=== PATIENT | male | born 1960 | race Hispanic/Latino ===

== ENCOUNTER 2016-08-09 20:41 | Inpatient (IN) | payer BC ==
[2016-08-09 20:42] VITALS: BMI 26.6
--- NOTE | 2016-08-09 21:09 | ED PDOC ---
Arrival/HPI - General Time Seen by Provider: 08/09/16 20:57 Historian: Patient - History of Present Illness Narrative History of Present Illness (Text): 08/09/16 21:04 Anuel Whitt is a 56 year old male, whose past medical history includes CAD with 5 stents, hypertension, hyperlipidemia, gastric ulcer, and alcohol abuse, who presents to the Emergency department complaining of abdominal pain. Patient states over the past 2 months he has been experiencing LLQ pain with associated weight loss and diarrhea. Patient reports bloody diarrhea over the past 2 days. Patient also reports he was diaphoretic with left leg cramping earlier today. Patient states he was seen at [facility] for similar complaints. Patient denies any chest pain, shortness of breath, nausea, vomiting, urinary symptoms, back pain, neck pain, headache, dizziness, or any other complaints. Symptom Onset: Gradual Symptom Course: Unchanged Activities at Onset: Rest, Light Context: Home Past Medical History - Provider Review Nursing Documentation Reviewed: Yes - Infectious Disease Hx of Infectious Diseases: None - Tetanus Immunization Tetanus Immunization: Up to Date - Cardiac Hx Cardiac Disorders: Yes Hx ND: Yes - Pulmonary Hx Respiratory Disorders: No Hx Tuberculosis: No - Neurological Hx Neurological Disorder: No Hx Paralysis: No - HEENT Hx HEENT Disorder: No - Renal Hx Renal Disorder: No - Endocrine/Metabolic Hx Endocrine Disorders: No - Hematological/Oncological Hx Blood Disorders: No Hx Blood Transfusions: No Hx Blood Transfusion Reaction: No - Integumentary Hx Dermatological Disorder: No - Musculoskeletal/Rheumatological Hx Musculoskeletal Disorders: No - Gastrointestinal Hx Gastrointestinal Disorders: No - Genitourinary/Gynecological Hx Genitourinary Disorders: No - Psychiatric Hx Psychophysiologic Disorder: Yes Hx Substance Use: No - Past Surgical History Past Surgical History: No Previous - Surgical History Hx Cardiac Catheterization: Yes (x 4 stents) Hx Coronary Stent: Yes (x 5) - Anesthesia Hx Anesthesia Reactions: No Hx Malignant Hyperthermia: No - Suicidal Assessment Feels Threatened In Home Enviroment: No Family/Social History - Physician Review Nursing Documentation Reviewed: Yes Family/Social History: No Known Family HX Smoking Status: Heavy Smoker > 10 Cigarettes Daily Hx Alcohol Use: Yes ( 10 to 12 BEERS DAILY) Hx Substance Use: No Hx Substance Use Treatment: No Allergies/Home Meds Allergies/Adverse Reactions: Allergies No Known Allergies Allergy (Verified 03/08/16 11:12) Home Medications: Home Meds Medication Instructions Recorded Confirmed Aspirin [Ecotrin] 81 mg PO DAILY 04/01/15 08/09/16 Atorvastatin [Lipitor] 40 mg PO DAILY 04/01/15 08/09/16 Clopidogrel [Plavix] 75 mg PO QAM 04/01/15 08/09/16 ALPRAZolam [Xanax] 0.5 mg PO PRN PRN 09/18/15 08/09/16 Review of Systems - Physician Review All systems were reviewed & negative as marked: Yes - Review of Systems Constitutional: Weight Change (+weight loss). absent: Fevers Eyes: Normal ENT: Normal Respiratory: Normal. absent: SOB, Cough Cardiovascular: Normal Gastrointestinal: Abdominal Pain, Diarrhea Genitourinary Male: Normal. absent: Dysuria, Frequency, Hematuria, Urinary Output Changes Musculoskeletal: Other (+left leg cramping). absent: Back Pain, Neck Pain Skin: Normal. absent: Rash Neurological: Normal. absent: Headache, Dizziness Endocrine: Diaphoresis Hemo/Lymphatic: Normal Psychiatric: Normal Physical Exam Vital Signs Reviewed: Yes Vital Signs Temp Pulse Resp BP Pulse Ox 08/09/16 21:32 98 F 89 18 155/86 H 97 Temperature: Afebrile Blood Pressure: Normal Pulse: Regular Respiratory Rate: Normal Appearance: Positive for: Well-Appearing, Non-Toxic, Comfortable Pain Distress: None Mental Status: Positive for: Alert and Oriented X 3 - Systems Exam Head: Present: Atraumatic, Normocephalic Pupils: Present: PERRL Extroacular Muscles: Present: EOMI Conjunctiva: Present: Normal Mouth: Present: Moist Mucous Membranes Neck: Present: Normal Range of Motion Respiratory/Chest: Present: Clear to Auscultation, Good Air Exchange. No: Respiratory Distress, Accessory Muscle Use Cardiovascular: Present: Regular Rate and Rhythm, Normal S1, S2. No: Murmurs Abdomen: Present: Tenderness (LLQ tenderness), Normal Bowel Sounds. No: Distention, Peritoneal Signs Back: Present: Normal Inspection Upper Extremity: Present: Normal Inspection. No: Cyanosis, Edema Lower Extremity: Present: Normal Inspection. No: Edema Neurological: Present: GCS=15, CN II-XII Intact, Speech Normal Skin: Present: Warm, Dry, Normal Color. No: Rashes Psychiatric: Present: Alert, Oriented x 3, Normal Insight, Normal Concentration Medical Decision Making ED Course and Treatment: 08/09/16 21:04 Impression: 56 year old male complaining of LLQ pain, diarrhea, and left leg tremors. Differential Diagnosis include but are not limited to: diverticular disease vs. GI bleed vs. colitis vs. gastroenteritis vs. abdominal pain Plan: -- CT Abdomen and Pelvis with IV contrast -- EKG -- Chest X-ray -- Labs, lipase -- Urinalysis -- IV fluids -- Protonix -- Xanax -- Reassess and disposition Progress Notes: 08/09/16 21:37 Reviewed EKG, NSR at 71 bpm. Septal infarct. Non-specific ST/T wave changes. 08/09/16 22:26 Reviewed Chest X-ray, shows no active disease. 08/09/16 23:[address] Abdomen and Pelvis, shows: 1. Fatty infiltration of the liver. 2. There are a few colonic diverticula with no diverticulitis. 3. Otherwise negative CT abdomen/pelvis. 08/10/16 00:[address] Mccall, who requests pt go to the hospitalist service. residential support specialist paged. 08/10/16 00:26 Case discussed with medical writer front loader residential driver, who is aware and agrees with plan. House physician paged. 08/10/16 00:[address] Rebolledo, who is aware and agrees with plan. Accepts pt in to hospitalist service. Pt will go to [facility] observation for intractable pain and lower GI bleed. - Lab Interpretations Lab Results: 08/09/16 21:25 08/09/16 21:25 Lab Results 08/09/16 21:25: WBC 7.4, RBC 4.29, Hgb 14.7, Hct 41.4 L, MCV 96.5, MCH 34.3, MCHC 35.5, RDW 12.3, Plt Count 263, MPV 9.8 08/09/16 21:25: Sodium 137, Potassium 3.8, Chloride 105, Carbon Dioxide 22, Anion Gap 14, BUN 9, Creatinine 0.7, Est GFR ( Amer) > 60, Est GFR (Non- Af Amer) > 60, Random Glucose 82, Calcium 9.3, Total Bilirubin 0.8, AST 56, ALT 49, Alkaline Phosphatase 56, Total Protein 7.6, Albumin 4.3, Globulin 3.3, Albumin/Globulin Ratio 1.3, Lipase 80 08/09/16 21:25: Urine Color yellow, Urine Appearance Clear, Urine pH 6.0, Ur Specific [place] <= 1.005, Urine Protein Negative, Urine Glucose (UA) Negative, Urine Ketones Negative, Urine Blood Negative, Urine Nitrate Negative, Urine Bilirubin Negative, Urine Urobilinogen 0.2, Ur Leukocyte Esterase Negative I have reviewed the lab results: Yes - RAD Interpretation Narrative RAD Interpretations (Text): Chest X-ray shows no active disease. CT Abdomen and Pelvis shows: Lower thorax: No acute findings. ABDOMEN: Liver: There is fatty infiltration of the liver. Gallbladder and bile ducts: Unremarkable. No calcified stones. No ductal dilation. Pancreas: Unremarkable. No mass. No ductal dilation. Spleen: Unremarkable. No splenomegaly. Adrenals: Unremarkable. No mass. Kidneys and ureters: There is a left renal cyst measuring up to 3.1 cm. Incidental note of an accessory retroaortic left renal vein. No hydronephrosis. Stomach and bowel: There are few colonic diverticula with no diverticulitis. No obstruction. Appendix: A normal appendix is seen. PELVIS: Bladder: Unremarkable. No mass. Reproductive: Unremarkable as visualized. ABDOMEN and PELVIS: Intraperitoneal space: Unremarkable. No free air. No significant fluid collection. Bones/joints: No acute fracture. No dislocation. Soft tissues: Minimal fat filled umbilical hernia. Vasculature: See above. Lymph nodes: Unremarkable. No enlarged lymph nodes. IMPRESSION: 1. Fatty infiltration of the liver. 2. There are a few colonic diverticula with no diverticulitis. 3. Otherwise negative CT abdomen/pelvis. Radiology Orders: 08/09/16 21:12 CHEST PORTABLE [RAD] Stat 08/09/16 21:13 ABD & PELVIS IV CONTRAST ONLY [CT] Stat Vehicle Dismantler: ED Physician, Radiologist - EKG Interpretation Interpreted by ED Physician: Yes Type: 12 lead EKG - Medication Orders Current Medication Orders: Alprazolam (Xanax) 0.5 mg PO PRN PRN; Protocol PRN Reason: Anxiety Stop: 08/17/16 00:30 Aspirin (Ecotrin) 81 mg PO DAILY LONA Atorvastatin Calcium (Lipitor) 40 mg PO DAILY LONA Clopidogrel Bisulfate (Plavix) 75 mg PO QAM LONA Famotidine (Pepcid) 40 mg PO HS LONA Pantoprazole Sodium (Protonix Ec Tab) 40 mg PO 0600,1600 LONA Discontinued Medications Al Hydrox/Mg Hydrox/Simethicone (Maalox Plus 30 Ml) 30 ml PO STAT STA Stop: 08/10/16 00:31 Alprazolam (Xanax) 0.25 mg PO ONCE ONE Stop: 08/09/16 21:31 Last Admin: 08/09/16 21:52 Dose: 0.25 mg Sodium Chloride (Sodium Chloride 0.9%) 1,000 mls @ 999 mls/hr IV .Q1H1M STA Stop: 08/09/16 22:14 Last Admin: 08/09/16 21:53 Dose: 999 mls/hr Iohexol (Omnipaque 350 100 Ml) Confirm Administered Dose 350 mg .ROUTE .STK-MED ONE Stop: 08/09/16 22:39 Morphine Sulfate (Morphine) 4 mg IVP STAT STA Stop: 08/10/16 00:31 Pantoprazole Sodium (Protonix Inj) 40 mg IVP ONCE STA Stop: 08/09/16 21:15 Last Admin: 08/09/16 21:52 Dose: 40 mg - Scribe Statement The provider has reviewed the documentation as recorded by the Devyn Stone All medical record entries made by the Devyn were at my direction and personally dictated by me. I have reviewed the chart and agree that the record accurately reflects my personal performance of the history, physical exam, medical decision making, and the department course for this patient. I have also personally directed, reviewed, and agree with the discharge instructions and disposition. Disposition/Present on Arrival - Present on Arrival Any Indicators Present on Arrival: No History of DVT/PE: No History of Uncontrolled Diabetes: No Urinary Catheter: No History Surgical Site Infection Following: None - Disposition Have Diagnosis and Disposition been Completed?: Yes Diagnosis: Intractable abdominal pain, Lower GI bleed Disposition: HOSPITALIZED Disposition Time: 00:34 Patient Plan: Observation Condition: STABLE Referrals: Harrison Mccall MD [Primary Care Provider] - Follow up with primary
[2016-08-09] MEDS ORDERED: Sodium Chloride 0.9% 1,000 ML IV STA (21:14)
[2016-08-09 21:57] LABS: HEMATOCRIT 41.4 % (42.0-52.0); MEAN CELL VOLUME 96.5 fL (80.0-105.0); MEAN CORPUSCULAR HEMOGLOBIN 34.3 pg (25.0-35.0); MEAN CORPUSCULAR HGB CONC 35.5 g/dl (31.0-37.0); MEAN PLATELET VOLUME 9.8 fl (7.0-11.0); RED CELL DISTRIBUTION WIDTH 12.3 % (11.5-14.5); URINE BILIRUBIN NEGATIVE (NEGATIVE); URINE GLUCOSE (UA) NEGATIVE (NEGATIVE); URINE KETONE NEGATIVE (NEGATIVE); URINE LEUKOCYTE ESTERASE NEGATIVE Leu/uL (NEGATIVE); URINE PROTEIN NEGATIVE mg/dL (<30 mg/dL); URINE UROBILINOGEN 0.2 E.U./dL (<1 E.U./dL); WHITE BLOOD COUNT 7.4 10^3/ul (4.5-11.0)
[2016-08-09 22:04] LABS: URINE APPEARANCE CLEAR (CLEAR)
[2016-08-09 22:05] LABS: URINE BLOOD NEGATIVE (NEGATIVE)
[2016-08-09 22:18] LABS: ALB/GLOB RATIO 1.3 (1.1-1.8); ALKALINE PHOSPHATASE 56 U/L (38-133); ALT/SGPT 49 U/L (7-56); AST/SGOT 56 U/L (15-59); BILIRUBIN,TOTAL 0.8 mg/dL (0.2-1.3); BLOOD UREA NITROGEN 9 mg/dL (7-21); CALCIUM 9.3 mg/dL (8.4-10.5); CARBON DIOXIDE 22 mmol/L (21-33); CHLORIDE 105 mmol/L (98-107); GFR AFRICAN-AMERICAN > 60; GLUCOSE,RANDOM 82 mg/dL (70-110); LIPASE 80 U/L (23-300); POTASSIUM 3.8 mmol/L (3.6-5.0); SODIUM 137 mmol/L (132-148); TOTAL PROTEIN 7.6 g/dL (5.8-8.3)
[2016-08-09] MEDS ORDERED: Iohexol 350 MG/100 ML VIAL ONE (22:38)
--- NOTE | 2016-08-10 00:27 | CP.PCM.HP ---
<Roel Gilbert - Last Filed: 08/10/16 00:53> History of Present Illness - History of Present Illness History of Present Illness: CC: LLQ Pain Mr. Whitt is a 56yo M w/ a PMhx of CAD with 5 stents, hypertension, hyperlipidemia, gastric ulcer, and alcohol abuse who is presenting to the hospital for a 4d history of LLQ pain that is not associated with any other symptoms. He cannot qualify the pain and simply says it hurts and the only thing that helps the pain is oxycodone. He also says that during our interview he started to have chest pain and a stat troponin was ordered as well as repeats. His abdominal pain is not associated with fevers/chills, CABRERA, CP, SOB, N /V/D, dysuria/freq/urg, or lower extremity pain or swelling. He states that his legs have been feeling kind of crampy recently and that he has been urinating a lot more than usual. He does not complain of any polyphagia. Pmhx: CAD with 5 stents, hypertension, hyperlipidemia, gastric ulcer, and alcohol abuse Social: lives at home, does not work, denies daily EtOH, current smoker 1ppd for 35 years, denies other drugs Allergies: None Surgeries: Denies Famhx: Sister with thyroid cancer Meds: please refer to MAR Present on Admission - Present on Admission Any Indicators Present on Admission: No History of DVT/PE: No History of Uncontrolled Diabetes: No Urinary Catheter: No Decubitus Ulcer Present: No Past Patient History - Infectious Disease Hx of Infectious Diseases: None - Tetanus Immunizations Tetanus Immunization: Up to Date - Past Medical History & Family History Past Medical History?: Yes - Past Social History Smoking Status: Heavy Smoker > 10 Cigarettes Daily - CARDIAC Hx Cardiac Disorders: Yes Hx Heart Attack: Yes - PULMONARY Hx Respiratory Disorders: No Hx Tuberculosis: No - NEUROLOGICAL Hx Neurological Disorder: No Hx Paralysis: No - HEENT Hx HEENT Problems: No - RENAL Hx Chronic Kidney Disease: No - ENDOCRINE/METABOLIC Hx Endocrine Disorders: No - HEMATOLOGICAL/ONCOLOGICAL Hx Blood Disorders: No Hx Blood Transfusions: No Hx Blood Transfusion Reaction: No - INTEGUMENTARY Hx Dermatological Problems: No - MUSCULOSKELETAL/RHEUMATOLOGICAL Hx Musculoskeletal Disorders: No - GASTROINTESTINAL Hx Gastrointestinal Disorders: No - GENITOURINARY/GYNECOLOGICAL Hx Genitourinary Disorders: No - PSYCHIATRIC Hx Psychophysiologic Disorder: Yes Hx Substance Use: No - SURGICAL HISTORY Hx Cardiac Catheterization: Yes (x 4 stents) Hx Coronary Stent: Yes (x 5) - ANESTHESIA Hx Anesthesia Reactions: No Hx Malignant Hyperthermia: No Meds Allergies/Adverse Reactions: Allergies Allergy/AdvReac Type Severity Reaction Status Date / Time No Known Allergies Allergy Verified 03/08/16 11:12 Physical Exam - Constitutional Appears: Well, Non-toxic - Head Exam Head Exam: ATRAUMATIC, NORMAL INSPECTION - Eye Exam Eye Exam: EOMI, Normal appearance - ENT Exam ENT Exam: Mucous Membranes Moist - Neck Exam Neck exam: Positive for: Full Rom. Negative for: Lymphadenopathy - Respiratory Exam Respiratory Exam: Clear to Auscultation Bilateral, NORMAL BREATHING PATTERN. absent: Rales, Rhonchi, Wheezes - Cardiovascular Exam Cardiovascular Exam: REGULAR RHYTHM, +S1, +S2 - GI/Abdominal Exam GI & Abdominal Exam: Normal Bowel Sounds, Soft. absent: Tenderness - Rectal Exam Rectal Exam: Deferred - Extremities Exam Extremities exam: Positive for: full ROM, normal capillary refill, normal inspection, pedal pulses present. Negative for: calf tenderness, joint swelling , pedal edema, tenderness - Back Exam Back exam: NORMAL INSPECTION. absent: CVA tenderness (L), CVA tenderness (R) - Neurological Exam Neurological exam: Alert, CN II-XII Intact, Normal Gait, Oriented x3, Reflexes Normal - Psychiatric Exam Psychiatric exam: Normal Affect - Skin Skin Exam: Warm Results - Vital Signs Recent Vital Signs: Last Vital Signs Temp 98 F 08/09/16 21:32 Pulse 89 08/09/16 21:32 Resp 18 08/09/16 21:32 BP 155/86 H 08/09/16 21:32 Pulse Ox 97 08/09/16 21:32 - Labs Result Diagrams: 08/09/16 21:25 08/09/16 21:25 Labs: Laboratory Results - last 24 hr 08/09/16 08/09/16 08/09/16 21:25 21:25 21:25 WBC 7.4 RBC 4.29 Hgb 14.7 Hct 41.4 L MCV 96.5 MCH 34.3 MCHC 35.5 RDW 12.3 Plt Count 263 MPV 9.8 Sodium 137 Potassium 3.8 Chloride 105 Carbon Dioxide 22 Anion Gap 14 BUN 9 Creatinine 0.7 Est GFR ( Amer) > 60 Est GFR (Non-Af Amer) > 60 Random Glucose 82 Calcium 9.3 Total Bilirubin 0.8 AST 56 ALT 49 Alkaline Phosphatase 56 Total Protein 7.6 Albumin 4.3 Globulin 3.3 Albumin/Globulin Ratio 1.3 Lipase 80 Urine Color yellow Urine Appearance Clear Urine pH 6.0 Ur Specific [place] <= 1.005 Urine Protein Negative Urine Glucose (UA) Negative Urine Ketones Negative Urine Blood Negative Urine Nitrate Negative Urine Bilirubin Negative Urine Urobilinogen 0.2 Ur Leukocyte Esterase Negative Assessment & Plan - Assessment and Plan (Free Text) Assessment: This is a 56yo M admitted for abdominal pain that is not intractable Abdominal pain CT Scan showed: 1. Fatty infiltration of the liver. 2. There are a few colonic diverticula with no diverticulitis. 3. Otherwise negative CT abdomen/pelvis -patient has no WBC, no tachycardia, no elevated RR, and is comfortably walking around the ER -Protonix and Pepcid Ordered with maalox -lactobacillus ordered -if patient has any diarrhea, please send C.Diff and stool for ova/parasites -f/u with troponins; zinc plater; EKG is unchanged from previous CAD -c/w home meds hypertension, -c/w home meds Hyperlipidemia -c/w home meds Hx of Alcohol Abuse -c/w thiamine and folate daily Proph -Protonix/Pepcid -Heparin Q8H -heart Healthy diet -f/u HbA1C; patient states he has been urinating more than usual Case Discussed with Dr. Kesha Gilbert PGY1 Night Float Decision To Admit - Pt Status Changed To: Hospital Disposition Of: Observation - . Bed Request Type: Med/Surg Admitting Physician: Clement Rebolledo <Clement Rebolledo - Last Filed: 08/14/16 22:51> Results - Vital Signs Recent Vital Signs: Last Vital Signs Temp 98.2 F 08/13/16 12:10 Pulse 64 08/13/16 12:10 Resp 17 08/13/16 12:10 BP 130/63 08/13/16 12:10 Pulse Ox 99 08/13/16 12:10 - Labs Result Diagrams: 08/13/16 05:35 08/13/16 05:35 Attending/Attestation - Attestation I have personally seen and examined this patient.: Yes I have fully participated in the care of the patient.: Yes I have reviewed all pertinent clinical information: Yes Notes (Text): 08/14/16 22:50 Patient was seen when she was in the ER . Agree with history, physical examination, assessment and plan.
[2016-08-10] MEDS ORDERED: Morphine 4 mg/ml ISec IVP STA (00:30)
[2016-08-10] MEDS ORDERED: Alum-Mag Hydrox-Simethicone Susp (30 mL) PO STA (00:30)
[2016-08-10] MEDS ORDERED: Albuterol 0.083% Inhal Sol (2.5 mg/3 mL) UD IH PRN (00:32)
[2016-08-10] MEDS ORDERED: oxyCODONE 5 mg Immediate Release Tab PO SCH (01:00)
[2016-08-10] MEDS: Lactobacillus Acidophilus 500 MU Cap PO SCH ×3 (04:13→17:54)
[2016-08-10] MEDS ORDERED: oxyCODONE 5 mg Immediate Release Tab PO PRN (04:23)
[2016-08-10] MEDS: Pantoprazole 40 mg EC Tab PO SCH ×2 (05:09→17:06)
[2016-08-10 07:29] LABS: ADD MANUAL DIFF? NO
[2016-08-10 07:33] LABS: BASO # 0.02 K/mm3 (0.0-2.0); BASO % 0.3 % (0.0-3.0); EOS # 0.2 (0.0-0.7); EOS % 3.1 % (1.5-5.0); GRAN # 4.62 (1.4-6.5); GRAN % 60.1 % (50.0-68.0); HEMATOCRIT 39.9 % (42.0-52.0); MEAN CELL VOLUME 97.3 fL (80.0-105.0); MEAN CORPUSCULAR HEMOGLOBIN 33.7 pg (25.0-35.0); MEAN CORPUSCULAR HGB CONC 34.6 g/dl (31.0-37.0); MEAN PLATELET VOLUME 9.7 fl (7.0-11.0); MONO # 0.8 (0.1-0.6); MONO % 10.5 % (1.0-6.0); PLATELET COUNT 230 10^3/uL (120.0-450.0); RED CELL DISTRIBUTION WIDTH 12.5 % (11.5-14.5); WHITE BLOOD COUNT 7.7 10^3/ul (4.5-11.0)
[2016-08-10] MEDS: Multivitamin Vitamin B Complex (Nephro-Vite) Tab PO SCH (08:25)
[2016-08-10 08:43] LABS: ALB/GLOB RATIO 1.3 (1.1-1.8); ALKALINE PHOSPHATASE 51 U/L (38-133); ALT/SGPT 51 U/L (7-56); AST/SGOT 42 U/L (15-59); BILIRUBIN,TOTAL 0.9 mg/dL (0.2-1.3); BLOOD UREA NITROGEN 9 mg/dL (7-21); CALCIUM 8.9 mg/dL (8.4-10.5); CARBON DIOXIDE 26 mmol/L (21-33); CHLORIDE 104 mmol/L (98-107); GFR AFRICAN-AMERICAN > 60; GLUCOSE,RANDOM 77 mg/dL (70-110); POTASSIUM 3.6 mmol/L (3.6-5.0); SODIUM 138 mmol/L (132-148); TOTAL PROTEIN 6.8 g/dL (5.8-8.3)
[2016-08-10 08:56] LABS: TROPONIN I < 0.01 ng/mL
--- NOTE | 2016-08-10 09:47 | RAD ---
HISTORY: abdominal pain COMPARISON: 10/24/2015 FINDINGS: LUNGS: The lungs are well inflated and clear. PLEURA: No significant pleural effusion identified, no pneumothorax apparent. CARDIOVASCULAR: Normal. OSSEOUS STRUCTURES: No significant abnormalities. VISUALIZED UPPER ABDOMEN: Normal. OTHER FINDINGS: None. IMPRESSION: No active pulmonary disease.
[2016-08-10] MEDS ORDERED: Thiamine 100 mg/ml Inj IV SCH (10:00)
[2016-08-10] MEDS ORDERED: Enoxaparin 40 mg Syringe SC SCH (10:00)
[2016-08-10] MEDS ORDERED: Iodixanol 320 MG/ML 100 ML BOTTLE IV ONE (11:49)
--- NOTE | 2016-08-10 12:23 | CT ---
PROCEDURE: CT Abdomen and Pelvis with contrast HISTORY: left lower abdominal pain COMPARISON: CT abdomen and pelvis with contrast performed 03/08/16 TECHNIQUE: Contrast dose: 100 mL Omnipaque 350 Radiation dose: Total exam DLP = 468.48 mGy-cm. This CT exam was performed using one or more of the following dose reduction techniques: Automated exposure control, adjustment of the mA and/or kV according to patient size, and/or use of iterative reconstruction technique. FINDINGS: LOWER THORAX: No visible consolidation, pleural effusion, or pneumothorax. LIVER: Hypoattenuation of the liver compatible with hepatic steatosis. More focal hypoattenuation and adjacent to the ligamentum teres, likely focal fatty infiltration. At least 2 too small to characterize (less than 3 mm) hepatic dome hypodense foci ; statistically likely cysts or hemangiomas. . GALLBLADDER AND BILE DUCTS: Unremarkable. PANCREAS: Unremarkable. SPLEEN: 7 mm probable splenule. Otherwise unremarkable. ADRENALS: Unremarkable. KIDNEYS AND URETERS: The kidneys enhance symmetrically. No hydronephrosis or obstructing calculus identified. 3.1 cm low-density lesion arising from the in left kidney appear cystic. VASCULATURE: Evidence of accessory retroaortic left renal vein. No aortic aneurysm. Atherosclerotic calcifications of the aorta and branches. BOWEL: Stomach is nondistended. Lack of oral contrast limits evaluation for bowel pathology. Bowel loops appear within normal limits of caliber without evidence of obstruction. Diverticulosis without CT evidence of acute diverticulitis. APPENDIX: The presumed appendix appears within normal limits of caliber. No secondary signs of acute appendicitis. PERITONEUM: No significant free fluid. No definite free air. LYMPH NODES: No bulky adenopathy. BLADDER: Unremarkable. REPRODUCTIVE: Measures approximately 3.4 x 4.4 cm and contains calcifications. BONES: Degenerative changes of the spine. Vacuum disc phenomenon at L5-S1. Anterior bridging osteophyte, left anterior sacroiliac joint. OTHER FINDINGS: Small fat containing umbilical hernia. IMPRESSION: Hypoattenuation of the liver compatible with hepatic steatosis. Suspect more focal fatty sparing adjacent the ligamentum teres. Scattered diverticulosis without CT evidence of acute diverticulitis. Additional findings as above. Preliminary impression was provided by virtual radiologic.
--- NOTE | 2016-08-10 12:41 | CT ---
PROCEDURE: CT HEAD WITHOUT CONTRAST. HISTORY: L sided symptoms COMPARISON: Noncontrast head CT performed 10/22/14 TECHNIQUE: Axial computed tomography images were obtained through the head/brain without intravenous contrast. Radiation dose: Total exam DLP = 734.80 mGy-cm. This CT exam was performed using one or more of the following dose reduction techniques: Automated exposure control, adjustment of the mA and/or kV according to patient size, and/or use of iterative reconstruction technique. FINDINGS: HEMORRHAGE: No intracranial hemorrhage. BRAIN: Diffuse atrophy with prominence of the ventricles and sulci noted. No mass effect or edema. Somewhat rounded and irregular hypodense regions are noted within the left cerebellum of unclear significance. Scattered periventricular and subcortical white matter hypodensities, which are nonspecific, but often seen with chronic microvascular ischemic disease. Please note that MRI with diffusion imaging is more sensitive in the detection of acute ischemic event. VENTRICLES: No hydrocephalus. CALVARIUM: Unremarkable. PARANASAL SINUSES: Mucosal thickening of the ethmoid air cells, bilateral maxillary sinuses, and bilateral sphenoid sinuses. Partially imaged left mucosal polyp/ cyst within the left maxillary sinus. MASTOID AIR CELLS: Unremarkable as visualized. No inflammatory changes. OTHER FINDINGS: Age indeterminate right nasal bone deformity. Correlate clinically. IMPRESSION: Generalized atrophy. Somewhat rounded and irregular hypodense regions are noted within the left cerebellum of unclear significance. Recommend MRI without and with IV contrast for further characterization. Nonspecific white matter changes as above. Please note that MRI with diffusion imaging is more sensitive in the detection of acute ischemic event. Mucosal thickening of the ethmoid air cells, bilateral maxillary sinuses, and bilateral sphenoid sinuses. Partially imaged left mucosal polyp/ cyst within the left maxillary sinus. Correlate clinically for sinusitis. Age indeterminate right nasal bone deformity. Correlate clinically. Findings related to the cerebellum and recommendations were discussed with ANNEMARIE Elder on 08/10/16 at 12:35 p.m..
[2016-08-10] MEDS ORDERED: Sodium Chloride 0.9% 1,000 ML IV STA (14:00)
[2016-08-10] MEDS: Thiamine 100 mg/ml Inj IM SCH (14:44)
[2016-08-10 17:50] LABS: FREE T4 0.83 ng/dL (0.78-2.19); T4 5.4 ug/dL (5.5-11.0)
[2016-08-10 18:03] LABS: THYROID STIMULATING HORMONE 2.11 mIU/mL (0.46-4.68)
--- NOTE | 2016-08-10 18:11 | CON ---
DATE: 08/10/2016 CHIEF COMPLAINT: Transient left-sided numbness. HISTORY OF PRESENT ILLNESS: A 56-year-old man with history of coronary artery disease status post 5 stents, on aspirin and Plavix; history of hypertension and hyperlipidemia; history of gastric ulcer; history of alcohol abuse, who had a 4-day history of left lower quadrant pain not associated with any symptoms and was on oxycodone for pain. He stated that his legs have been feeling kind of crampy. He mentions that he had some transient left side numbness and that his left leg gave out. CT head sh owed no acute intracranial abnormality, just generalized atrophy and irregular hypodensity noted in t he left cerebellum, likely more of atherosclerotic disease, it seems like. He had an MRI and MRA of the head in the past, in 2014, which showed no acute intracranial abnormalities. Currently, he is mo ving. His strength is 5/5 in both upper and lower extremities. His gait is normal. Romberg is negat matt. PAST MEDICAL HISTORY: Coronary artery disease status post 5 stents, hypertension, hyperlipidemia, ga stric ulcer, alcohol abuse. SOCIAL HISTORY: Lives at home, does not work and denies any daily ETOH abuse, is a current smoker of 1 pack per day for the past 35 years. Denies any other illicit drug use. ALLERGIES: No known drug allergies. FAMILY HISTORY: Noncontributory. CURRENT MEDICATIONS: Reviewed via nursing reconciliation sheet. REVIEW OF SYSTEMS: A 14-point review of systems is negative except in the HPI. PHYSICAL EXAMINATION: VITAL SIGNS: Temperature 98, pulse rate , blood pressure 148/81, respiratory rate of 95 . GENERAL: The patient is sitting up in bed in no acute distress. HEENT: Atraumatic, normocephalic. PERRLA. Extraocular muscles intact. NECK: Supple, no JVD, no adenopathy noted. LUNGS: Clear to auscultation. No adventitious sounds. HEART: S1, S2, normal rate and rhythm. No murmurs, rubs, or gallops. ABDOMEN: Soft, nontender, nondistended. Bowel sounds are present. EXTREMITIES: No clubbing, no cyanosis. Peripheral pulses 2+ felt bilaterally. NEUROLOGIC: The patient is alert. Oriented to person, place, month and year. Speech is fluent, wit hout any errors. Cranial nerves II-XII are intact. MOTOR: Strength is 5/5 in both upper and lower extremities. SENSORY: Light touch, pinprick, proprioception, vibration are intact. DTRs 2+ throughout. COORDINATION: [id number]-[id number] is intact. Gait normal. Romberg negative. LABORATORY DATA: Sodium is 138, potassium , chloride of 104, carbon dioxide of 26, BUN of 9, cr eatinine 0.8. Random glucose of 77. A1c is 5.3. TSH is 5.14. ASSESSMENT AND PLAN: This is a 56-year-old man with history of coronary artery disease status post 5 stents, hypertension, hyperlipidemia, gastric ulcer, history of alcohol abuse, history of anxiety an d depression in the past. He came in with left lower quadrant abdominal pain, which is being worked up, without any diarrhea or nausea. He had some transient, intermittent left-sided numbness and ting ling sensation rather than weakness. Sometimes, his left leg gives out. Neuro exam is nonfocal. CT head showed no acute intracranial abnormalities, some irregular hypodensity in the cerebellum, which seems more likely chronic ischemic changes. He had MRI of the brain and MRA of the head in 2014, [facility] showed no acute intracranial abnormalities. At this time, recommend: 1. B12 level and ceruloplasmin level. 2. Continue with aspirin 81 mg and Plavix 75 mg, Lipitor 40 mg for stroke prevention. 3. Alcohol content of 16. Therefore, counseled on alcohol cessation and is on Librium p.r.n. for al cohol withdrawal. 4. Get an MRI and MRA of the head and brain to assess for any acute changes from prior, and if negat matt, likely his overall symptoms could be most likely transient anxiety state. At this time, anthony carmona with current present medical management . Dorian Gee MD cc: [id number] TT: 08/10/2016 18:10:47 Confirmation # [id number] Dictation # [id number]
[2016-08-10] MEDS ORDERED: Gadodiamide 287 MG/ML VIAL (20ML) IV ONE (18:57)
--- NOTE | 2016-08-10 20:01 | US ---
HISTORY: Leg pain and swelling. Evaluate for DVT PHYSICIAN(S): Greg Mcgregor MD. TECHNIQUE: Duplex sonography and color-flow Doppler with graded compression were used to evaluate the deep venous systems of both lower extremities. FINDINGS: The visualized deep venous systems of both lower extremities are sonographically normal and compressible. Normal wave forms and augmentation are seen. There is no sonographic evidence for deep venous thrombosis in the visualized segments of both lower extremities. IMPRESSION: No sonographic evidence for deep venous thrombosis in the visualized segments of both lower extremities.
--- NOTE | 2016-08-11 00:13 | CARD ---
APPROVED REPORT EKG Measurement Heart [id number] <Conclusion> Normal sinus rhythm Septal infarct, age undetermined Abnormal ECG
[2016-08-11] MEDS: Pantoprazole 40 mg EC Tab PO SCH ×2 (06:24→17:42)
[2016-08-11 07:34] LABS: ADD MANUAL DIFF? NO
[2016-08-11 07:44] LABS: BASO # 0.02 K/mm3 (0.0-2.0); BASO % 0.2 % (0.0-3.0); EOS # 0.2 (0.0-0.7); EOS % 2.8 % (1.5-5.0); GRAN # 5.24 (1.4-6.5); GRAN % 64.4 % (50.0-68.0); HEMATOCRIT 42.4 % (42.0-52.0); LYMPH # 1.8 (1.2-3.4); LYMPH % 21.8 % (22.0-35.0); MEAN CELL VOLUME 98.1 fL (80.0-105.0); MEAN CORPUSCULAR HEMOGLOBIN 33.6 pg (25.0-35.0); MEAN CORPUSCULAR HGB CONC 34.2 g/dl (31.0-37.0); MONO # 0.9 (0.1-0.6); MONO % 10.8 % (1.0-6.0); PLATELET COUNT 235 10^3/uL (120.0-450.0); RED CELL DISTRIBUTION WIDTH 12.4 % (11.5-14.5); WHITE BLOOD COUNT 8.2 10^3/ul (4.5-11.0)
[2016-08-11 08:04] LABS: FREE T4 0.89 ng/dL (0.78-2.19)
[2016-08-11] MEDS: Multivitamin Vitamin B Complex (Nephro-Vite) Tab PO SCH (08:20)
[2016-08-11 08:22] LABS: ALB/GLOB RATIO 1.3 (1.1-1.8); ALKALINE PHOSPHATASE 52 U/L (38-133); ALT/SGPT 52 U/L (7-56); AST/SGOT 41 U/L (15-59); BILIRUBIN,TOTAL 0.8 mg/dL (0.2-1.3); BLOOD UREA NITROGEN 10 mg/dL (7-21); CALCIUM 9.3 mg/dL (8.4-10.5); CARBON DIOXIDE 29 mmol/L (21-33); CHLORIDE 104 mmol/L (95-110); GFR AFRICAN-AMERICAN > 60; GLUCOSE,RANDOM 95 mg/dL (70-110); SODIUM 140 mmol/L (132-148)
--- NOTE | 2016-08-11 09:11 | CON ---
DATE: 08/10/2016 This is a 56-year-old patient with a past medical history of coronary artery disease, status post mul tiple PCIs, hypertension, dyslipidemia, presented to the Emergency Room, complains of worsening of th e left lower quadrant pain for more than 6 days. The patient has a history of ulcer disease in the p ast. The patient did have endoscopy done on ____, revealed a gastric ulcer. Colonoscopy done o n the same day revealed multiple polyps, diverticulosis and hemorrhoids. The patient is complaining of discomfort in the right ____ area. Endoscopy done on 05/12/2015 showed a gastric ulcer. Colonosco py done at the same time revealed multiple polyps, diverticulosis and hemorrhoids: PAST MEDICAL HISTORY: Significant as above, dyslipidemia. SOCIAL HISTORY: Positive for smoking, alcohol. ALLERGIES: No known drug allergies. PAST SURGICAL HISTORY: No ____ surgical history. FAMILY HISTORY: Positive for a sister with thyroid cancer. REVIEW OF SYSTEMS: Positive as above. All other systems reviewed. REVIEW OF SYSTEMS: Positive as above. Other systems reviewed. PHYSICAL EXAMINATION: GENERAL: The patient is lying on the bed, not in acute distress. VITAL SIGNS: Temperature is 98, blood pressure 140/81, O2 saturation is over 90. HEENT: Atraumatic, anicteric. NECK: Supple. HEART: S1, S2 heard. LUNGS: Bilateral air entry present. ABDOMEN: ____ pain in the left lower quadrant groin area. NEUROLOGIC: Alert, oriented. Moves all the extremities. LABORATORY DATA: Hemoglobin is 13.8, hematocrit 39.9, WBC 7.0, platelets ____. LFTs are essentially unremarkable. This 56-year-old patient was admitted with left groin significant discomfort. The patient's abdomen soft. There is no tenderness. There is no mass palpable. There is tenderness over the left inguina l area and the groin area. Chemistry is essentially unremarkable. CT of the abdomen and pelvis was done with no p.o. or IV cont rast. Ultrasound ____ showed. The patient has ____. IMPRESSION: This 56-year-old patient is admitted with left groin ____ abdominal discomfort. She als o has ____ abdominal pain and discomfort in the left lower quadrant area over the groin. This 56-yea r-old patient with a past medical history of gastric ulcer, gastroesophageal reflux disease, presente d to the Emergency Room with worsening of the pain in the left groin area. RECOMMEND: We will review the CT with radiology. The etiology of the left groin pain is unclear. C ontinue the PPI. We will review the CT with the radiologist. Thank you very much for allowing us to participate in the care of the patient. We will continue to c losely follow up her care and suggest further management based on the clinical course. Judith Verdugo MD cc: [id number] TT: 08/11/2016 09:10:52 Confirmation # [id number] Dictation # [id number] tn
[2016-08-11] MEDS ORDERED: Sodium Chloride 0.9% 1,000 ML IV STA ×2 (09:38→15:37)
[2016-08-11] MEDS: Lactobacillus Acidophilus 500 MU Cap PO SCH ×2 (10:06→17:42)
[2016-08-11] MEDS: Thiamine 100 mg/ml Inj IM SCH (10:07)
[2016-08-11 12:05] LABS: ADD MANUAL DIFF? NO
[2016-08-11 12:11] LABS: BASO # 0.01 K/mm3 (0.0-2.0); BASO % 0.1 % (0.0-3.0); EOS # 0.2 (0.0-0.7); EOS % 1.7 % (1.5-5.0); GRAN % 74.9 % (50.0-68.0); HEMATOCRIT 41.2 % (42.0-52.0); LYMPH # 1.6 (1.2-3.4); LYMPH % 15.4 % (22.0-35.0); MEAN CELL VOLUME 99.3 fL (80.0-105.0); MEAN CORPUSCULAR HEMOGLOBIN 33.7 pg (25.0-35.0); MEAN PLATELET VOLUME 9.6 fl (7.0-11.0); MONO # 0.8 (0.1-0.6); MONO % 7.9 % (1.0-6.0); PLATELET COUNT 226 10^3/uL (120.0-450.0); RED CELL DISTRIBUTION WIDTH 12.5 % (11.5-14.5); WHITE BLOOD COUNT 10.7 10^3/ul (4.5-11.0)
--- NOTE | 2016-08-11 12:35 | CP.PCM.PN ---
<Henri Diehl - Last Filed: 08/11/16 12:31> Subjective - Date & Time of Evaluation Date of Evaluation: 08/11/16 Time of Evaluation: 09:00 - Subjective Subjective: Medicine Progress note: Pt is seen and examined at bedside. No acute events overnight. This am pt had a bright red blood per rectum witness by nurses. Pt c/o of dizziness and BP dropped to aprox 100/63. 1L bolus was given and asirin, plavix, lovenox placed on hold for today - as per pt last stent placed years ago. Denies any f/c, sob, cp, n/v/d. Objective - Vital Signs/Intake and Output Vital Signs (last 24 hours): Temp Pulse Resp BP Pulse Ox 98 F 53 L 20 142/93 H 96 08/11/16 07:30 08/11/16 07:30 08/11/16 07:30 08/11/16 10:30 08/11/16 07:30 - Medications Medications: Current Medications Acetaminophen (Tylenol 325mg Tab) 650 mg PO Q6H PRN PRN Reason: Fever >100.4 F Albuterol Sulfate (Albuterol 0.083% Inhal Vanessa (2.5 Mg/3 Ml) Ud) 2.5 mg IH Q2H PRN PRN Reason: Shortness of Breath Alprazolam (Xanax) 0.5 mg PO Q8H PRN; Protocol PRN Reason: Anxiety Stop: 08/17/16 00:30 Last Admin: 08/11/16 10:06 Dose: 0.5 mg Aspirin (Ecotrin) 81 mg PO DAILY [facility] Last Admin: 08/10/16 10:04 Dose: 81 mg Atorvastatin Calcium (Lipitor) 40 mg PO DIN [facility] Last Admin: 08/10/16 17:54 Dose: 40 mg Chlordiazepoxide (Librium) 10 mg PO Q8H PRN; Protocol PRN Reason: EtOH Withdrawal Clopidogrel Bisulfate (Plavix) 75 mg PO QAM [facility] Last Admin: 08/10/16 10:04 Dose: 75 mg Enoxaparin Sodium (Lovenox) 40 mg SC DAILY [facility] PRN Reason: Protocol Last Admin: 08/10/16 10:03 Dose: 40 mg Famotidine (Pepcid) 40 mg PO HS [facility] Last Admin: 06/19/17 22:06 Dose: Not Given Ibuprofen (Motrin Tab) 600 mg PO Q6H PRN PRN Reason: Pain, Mild (1-3) Lactobacillus Acidophilus (Bacid Acidophilus) 1 cap PO BID [facility] Last Admin: 08/11/16 10:06 Dose: 1 cap Nicotine (Nicoderm Cq) 1 patch TD DAILY [facility] Last Admin: 08/11/16 10:06 Dose: 1 patch Ondansetron HCl (Zofran Inj) 8 mg IVP Q8H PRN PRN Reason: Nausea/Vomiting Oxycodone HCl (Oxycodone Immediate Release Tab) 5 mg PO Q4 PRN PRN Reason: Pain, moderate (4-7) Last Admin: 08/10/16 05:08 Dose: 5 mg Pantoprazole Sodium (Protonix Ec Tab) 40 mg PO 0600,1600 [facility] Last Admin: 08/11/16 06:24 Dose: Not Given Thiamine HCl (Vitamin B1 Inj) 100 mg IM DAILY [facility] Last Admin: 08/11/16 10:07 Dose: 100 mg Vitamin B Complex/Vit C/Folic Acid (Nephro-Michelle) 1 tab PO 0800 [facility] Last Admin: 08/11/16 08:20 Dose: 1 tab - Labs Labs: 08/11/16 12:00 - Constitutional Appears: No Acute Distress - Head Exam Head Exam: ATRAUMATIC, NORMAL INSPECTION, NORMOCEPHALIC - Eye Exam Eye Exam: EOMI, Normal appearance, PERRL Pupil Exam: NORMAL ACCOMODATION, PERRL - ENT Exam ENT Exam: Mucous Membranes Moist, Normal Exam - Neck Exam Neck Exam: Full ROM, Normal Inspection. absent: Lymphadenopathy - Cardiovascular Exam Cardiovascular Exam: REGULAR RHYTHM, RRR, +S1, +S2. absent: Murmur - GI/Abdominal Exam GI & Abdominal Exam: Soft, Normal Bowel Sounds. absent: Tenderness - Extremities Exam Extremities Exam: Full ROM, Normal Capillary Refill, Normal Inspection. absent : Joint Swelling, Pedal Edema - Back Exam Back Exam: NORMAL INSPECTION - Neurological Exam Neurological Exam: Alert, Awake, CN II-XII Intact, Normal Gait, Oriented x3 - Psychiatric Exam Psychiatric exam: Normal Affect, Normal Mood - Skin Skin Exam: Dry, Intact, Normal Color, Warm Assessment and Plan - Assessment and Plan (Free Text) Assessment: 56yo M w/ a PMhx of CAD with 5 stents, hypertension, hyperlipidemia, gastric ulcer, and alcohol abuse who is presenting to the hospital for a 4d history of LLQ pain, and L sided weakness/ symptoms. 1. GI bleed - this am an episode of GI bleed per rectum - CT abd - hypoattenuation of liver compatiable with hepatic steatosis, suspect more focal fatty sparring of adjacent ligamentous ibarra, scattered divericulosis w/o evidence of diverticulitis - GI - Dr Verdugo consulted and appreciate recs - Hold aspirin, plavix and lovenox - protonix 40mg PO BID 2. L sided weakness / symptoms - CT head - generalized atrophy, somewhat rounded and irregular hypodense regions are note with in the L cerebellum of unclear significance, non specific white matter changes, correlate clinically for sinusitis. Recommend MRI - MRI pending read - MRA pending read - Ext US: negative for DVTs - neurology consulted- recommended MRI, MRA vit B12, Ceruloplamin. Cont aspirin , plavix, statin 3. Chest pain - Trops x 2 negative - Elevated D-Dimer - V/Q scan pending read Vrad - low probability of PE - Cont to monitor 4. CAD multiple stents - Hold aspirin plavix, lovenox for now - cont Lipitor 5. ETOH intox/withdrwal - Librium 10mg Q8H PRN - Thiamine, Vitamin B - Educated on importance on quitting drinking Case and plan was seen, reviewed and discussed in detail with Dr Kebede. <Neno Kebede - Last Filed: 08/11/16 17:50> Objective - Vital Signs/Intake and Output Vital Signs (last 24 hours): Temp Pulse Resp BP Pulse Ox 97.7 F 59 L 20 127/67 98 08/11/16 16:00 08/11/16 16:48 08/11/16 16:00 08/11/16 16:48 08/11/16 16:48 Intake and Output: 08/11/16 08/11/16 06:59 18:59 Intake Total 500 Balance 500 - Medications Medications: Current Medications Acetaminophen (Tylenol 325mg Tab) 650 mg PO Q6H PRN PRN Reason: Fever >100.4 F Albuterol Sulfate (Albuterol 0.083% Inhal Vanessa (2.5 Mg/3 Ml) Ud) 2.5 mg IH Q2H PRN PRN Reason: Shortness of Breath Alprazolam (Xanax) 0.5 mg PO Q8H PRN; Protocol PRN Reason: Anxiety Stop: 08/17/16 00:30 Last Admin: 08/11/16 10:06 Dose: 0.5 mg Aspirin (Ecotrin) 81 mg PO DAILY [facility] Last Admin: 08/10/16 10:04 Dose: 81 mg Atorvastatin Calcium (Lipitor) 40 mg PO DIN [facility] Last Admin: 08/10/16 17:54 Dose: 40 mg Chlordiazepoxide (Librium) 10 mg PO Q8H PRN; Protocol PRN Reason: EtOH Withdrawal Clopidogrel Bisulfate (Plavix) 75 mg PO QAM [facility] Last Admin: 08/10/16 10:04 Dose: 75 mg Enoxaparin Sodium (Lovenox) 40 mg SC DAILY [facility] PRN Reason: Protocol Last Admin: 08/10/16 10:03 Dose: 40 mg Sodium Chloride (Sodium Chloride 0.9%) 1,000 mls @ 100 mls/hr IV .Q10H [facility] Lactobacillus Acidophilus (Bacid Acidophilus) 1 cap PO BID [facility] Last Admin: 08/11/16 10:06 Dose: 1 cap Nicotine (Nicoderm Cq) 1 patch TD DAILY [facility] Last Admin: 08/11/16 10:06 Dose: 1 patch Ondansetron HCl (Zofran Inj) 8 mg IVP Q8H PRN PRN Reason: Nausea/Vomiting Oxycodone HCl (Oxycodone Immediate Release Tab) 5 mg PO Q4 PRN PRN Reason: Pain, moderate (4-7) Last Admin: 08/10/16 05:08 Dose: 5 mg Pantoprazole Sodium (Protonix Ec Tab) 40 mg PO 0600,1600 [facility] Last Admin: 08/11/16 06:24 Dose: Not Given Thiamine HCl (Vitamin B1 Inj) 100 mg IM DAILY [facility] Last Admin: 08/11/16 10:07 Dose: 100 mg Vitamin B Complex/Vit C/Folic Acid (Nephro-Michelle) 1 tab PO 0800 [facility] Last Admin: 08/11/16 08:20 Dose: 1 tab - Labs Labs: 08/11/16 16:06 Attending/Attestation - Attestation I have personally seen and examined this patient.: Yes I have fully participated in the care of the patient.: Yes I have reviewed all pertinent clinical information, including history, physical exam and plan: Yes Notes (Text): 08/11/16 17:37 56 year old male with past medical history of CAD s/p stents, hypertension, gastric ulcer and alcohol abuse who presented with complaint of lower abdominal pain and blood in stools. CT abd/pelvis showed hepatitic steatosis and scattered diverticulosis without evidence of diverticulitis. This morning he had episode of bloody BM noted by nurse. Hemoglobin however remains stable. Blood pressure was slightly low but he was not tachycardic. BP improved with bolus. Will place NPO, on iv fluids and protonix bid. GI is following patient ; may need scope examination. Will hold his aspirin and plavix for now and transfer to telemetry unit. He also complained of left sided numbness/weakness. CT head showed generalized atrophy, somewhat rounded/irregular hypodense regions in the left cerebellum and non specific white matter changes. MRA head showed old left cerebellar infarct changes. MRI brain showed small venous angioma left posterior superior frontoparietal region. Neurology is following and recommended stroke preventive measures with aspirin/plavix (on hold for now as above) and statin. Also recommended repeat MRI brain in 6 months. D-dimer was elevated. However Doppler and VQ scan are negative. Serial cardiac enzymes were negative. He was counselled on alcohol abstinence. Continue with librium prn. He is on thiamine and multivitamin. Neno Kebede MD Hospitalist.
[2016-08-11] MEDS ORDERED: Gadodiamide 287 MG/ML VIAL (15ML) IV ONE (13:14)
--- NOTE | 2016-08-11 14:46 | MRI ---
PROCEDURE: MRA brain dated 08/10/2016 HISTORY: Left-sided weakness COMPARISON: Correlation made with concurrent limited post-contrast MRI of the brain as well as CT scan of the brain obtained earlier same day. TECHNIQUE: 3D time of flight MR angiography of the intracranial arteries was performed. Rotating maximum intensity projection images were generated. Additionally, diffusion-weighted sequence also performed. FINDINGS: The current study reveals chronic left cerebellar infarct best seen on ADC map imaging which was also performed on this exam. The visualized distal internal carotid arteries including the petrous, cavernous and supraclinoid segments exhibit normal caliber on without evidence of occlusion or significant stenosis. Vessels are widely patent. The A1 and M1 segments are also exhibit normal caliber without occlusion or significant stenosis. Distal anterior middle cerebral branches are patent and appear relatively symmetric as well. There is asymmetry of the vertebral arteries left-sided which is larger in caliber/more dominant than the right. Basilar artery is patent. The posterior cerebral arteries are also patent throughout. No evidence of large aneurysm nor vascular malformation. Impression: Unremarkable MRA of the brain. 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
--- NOTE | 2016-08-11 14:55 | MRI ---
PROCEDURE: MRI brain dated 08/11/2016 HISTORY: Questionable artifact versus pain meningeal/dural enhancement on limited postcontrast FSPGR T1 weighted sequences. COMPARISON: Comparison made with prior limited postcontrast MRI of the brain and MRA brain both dated 08/10/2016. Comparison also made with prior CT scan brain also dated 08/10/2016 TECHNIQUE: Multiplanar, multisequence MR images of the brain were obtained before and following intravenous injection of approximately 15 cc Omnipaque 300 contrast material. FINDINGS: HEMORRHAGE: No evidence of acute parenchymal, subarachnoid or extra-axial hemorrhage. DWI: No acute infarct seen on diffusion-weighted sequence. BRAIN PARENCHYMA: Re- demonstrated are chronic left cerebellar infarct changes with some minimal rule residual surrounding gliosis. In addition, mild chronic periventricular white matter ischemic changes with a few more discrete chronic appearing lacunar type infarcts scattered about deep and subcortical white matter. None of these changes exhibit restricted diffusion. Mild generalized volume loss. ENHANCEMENT: Loss. Re- demonstrated is a small venous angioma in the left posterior frontoparietal deep and subcortical white matter are unchanged from prior exam. . Drainage extends posteriorly and superiorly into the sagittal sinus. No evidence of enhancing extra-axial masses or collections. No evidence of abnormal meningeal enhancement. VENTRICLES: No evidence of obstructive type hydrocephalus. CRANIUM: Calvarium appears grossly unremarkable. ORBITS: Grossly unremarkable. PARANASAL SINUSES/MASTOIDS: There are subtotal opacification changes ethmoid air complex with minor mucosal thickening extended into the frontal sinus. There is also coastal thickening seen within both maxillary antra left greater than right. Probable mucous retention cyst left maxillary antrum. VASCULAR SYSTEM: Visualized major vascular flow voids at skull base are patent. OTHER FINDINGS: None . IMPRESSION: No evidence of acute hemorrhage or infarct. . Small venous angioma left posterior superior frontoparietal region. 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 . Minor chronic white matter ischemic changes. Mild generalized volume loss. No evidence of enhancing masses collections or evidence of abnormal meningeal enhancement.
--- NOTE | 2016-08-11 15:00 | MRI ---
PROCEDURE: MRI BRAIN WITH CONTRAST HISTORY: L sided weakness COMPARISON: None. TECHNIQUE: Limited post gadolinium sagittal T1 FSE and axial FSPGR T1 sequences performed following intravenous injection of gadolinium contrast material. FINDINGS: HEMORRHAGE: No acute parenchymal, subarachnoid or extra-axial hemorrhage. . DWI: No evidence of acute or subacute infarcts seen on diffusion imaging which was performed on the concurrent MRA brain. BRAIN PARENCHYMA: There is a small enhancing venous angioma seen in the left posterior superior frontal and parietal region that extends and drains into the posterior margin of the left superior sagittal sinus. No other focal areas of abnormal enhancement within the substance of the brain. No enhancing extra-axial masses or collections. . There does appear to be some very minimal faint linear dural enhancement which is felt to represent artifact related to the post gadolinium at SPGR sequence and not dural enhancement however repeat postcontrast FSE T1 sequences recommended to confirm. Chronic left cerebellar infarcts again seen VENTRICLES: No evidence of obstructive hydrocephalus. CRANIUM: Calvarium appears grossly unremarkable so far as can be seen on this limited study ORBITS: Grossly unremarkable. PARANASAL SINUSES/MASTOIDS: Mucoperiosteal inflammatory changes within ethmoid, maxillary sinuses and to a lesser degree frontal sinuses. . Prominent mucous retention cyst floor left maxillary antrum VASCULAR SYSTEM: Visualized major vascular flow voids at skull base appear patent so far as can be seen. OTHER FINDINGS: None . IMPRESSION: There is a small enhancing venous angioma seen in the left posterior superior frontal and parietal region that extends and drains into the posterior margin of the left superior sagittal sinus. No other focal areas of abnormal enhancement within the substance of the brain. No enhancing extra-axial masses or collections. . There does appear to be some very minimal faint linear dural enhancement which could be a function of the high-resolution sequence. Repeat postcontrast fast spin echo sequences recommended to confirm artifact. . . Chronic left cerebellar infarct changes.
[2016-08-11 16:12] LABS: HEMATOCRIT 39.5 % (42.0-52.0); VENOUS BLOOD GAS BASE EXCESS 3.7 mmol/L (0.0-2.0); VENOUS BLOOD PH 7.36 (7.32-7.43)
--- NOTE | 2016-08-11 16:19 | PN ---
DATE: 08/11/2016 CHIEF COMPLAINT: Followup for transient left side numbness. SUBJECTIVE: The patient is seen at bedside. No significant abnormalities. His strength is 5/5 in b oth upper and lower extremities. 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 Will follow up in 6 months. His B12 level was normal at 45. Labs are unremarkable today. PAST MEDICAL HISTORY: Coronary artery disease status post stent, hypertension, hyperlipidemia, gastr ic ulcer, ____ abuse. SOCIAL HISTORY: No illicit drug use, ____, or ____ abuse, but ____ 1 pack of cigarettes per day for the past 5 years. No illicit drug use at this time. ALLERGIES: No known drug allergies. FAMILY HISTORY: Noncontributory. MEDICATIONS: Reviewed via nurses' reconciliation sheet. REVIEW OF SYSTEMS: A 14-point review of systems is negative except for the HPI. PHYSICAL EXAMINATION: VITAL SIGNS: Temperature of 98, pulse rate of 142/92, respiratory rate 20, oxygen saturation 92% via room air. GENERAL: The patient is sitting up in bed in no acute distress. HEENT: Atraumatic, normocephalic. PERRLA. Extraocular muscles intact. NECK: Supple, no JVD, no adenopathy noted. LUNGS: Clear to auscultation. No adventitious sounds. HEART: S1, S2, normal rate and rhythm. No murmurs, rubs, or gallops. ABDOMEN: Soft, nontender, nondistended. Bowel sounds are present. EXTREMITIES: No clubbing, no cyanosis. Peripheral pulses 2+ felt bilaterally. NEUROLOGIC: The patient is alert, oriented to person, place, month and year. Speech is fluent witho ut any errors. Cranial nerves II through XII are intact. MOTOR: Moves all extremities equally. Toes are downgoing bilaterally. SENSORY: Light touch, pinprick, proprioception and vibration are intact. REFLEXES: DTRs 2+ throughout. COORDINATION: Uceyio-nf-meys intact. GAIT: Normal. Romberg negative. LABORATORY DATA: CBC and CMP are unremarkable. ASSESSMENT AND PLAN: This is a 56-year-old man with history of coronary artery disease, status post 5 stents; hypertension, hyperlipidemia, gastric ulcer disease, history of alcohol abuse, history of a nxiety and depression in the past, who came in for left lower quadrant abdominal pain, was being work ed up, without any diarrhea or nausea. Has some transient intermittent left-sided numbness and tingl ing sensation rather than weakness and his left leg gives out. He has an old left cerebellar infarct on the MRI of the brain as well as MRA, and an incidental venous angioma which is small which is inc idental and not causing the symptoms. At this time, I feel like his transient paresthesias could be possibly secondary to a transient anxiety state causing paresthesias. At this time, recommend: 1. Aspirin 81 mg, Plavix 75 mg, Lipitor 40 mg for stroke prevention. 2. Will follow up with MRI in 6 months to monitor the small venous angioma. No surgical interventio n is needed at this time. Continue the current present medical management. No further neurological workup. Will sign off. Will follow up as outpatient. Dorian Gee MD cc: [id number] TT: 08/11/2016 15:38:32 Confirmation # [id number] Dictation # [id number] mn
--- NOTE | 2016-08-11 16:42 | PN ---
DATE: 08/11/2016 SUBJECTIVE: Seen and examined at the bedside earlier this afternoon. The patient is reported to hav e had stool with bright red blood noted. Medical team held the patient's aspirin, Plavix, and Loveno x. The patient reported that he has been having intermittent episodes of bloody stools. The patient initially complained of left groin discomfort. He denied any rectal pain, no abdominal pain. After he had that bloody bowel movement, he reported having some lightheadedness and he was reported to alva ve a low blood pressure. Denies any shortness of breath or chest pains. VITAL SIGNS: Temperature is 98, his pulse rate is 53, blood pressure was 142/93, respirations 20, an d 96% on room air. LABORATORY DATA: Labs this morning, his WBC is 8.2, hemoglobin is 14.5, hematocrit 42.4, and platele ts 235. Sodium is 140, K is 4.0, BUN is 10, and creatinine is 0.8. LFTs are within normal limits. The patient went for a brain MRI and that showed no evidence of acute hemorrhage or infarct, showed n o evidence of enhancing mass collections or evidence of abnormal meningeal enhancement, had small polly ous angioma left posterior superior frontoparietal region, old infarct changes in the left cerebellum , minor chronic white matter ischemic changes, mild generalized volume loss. He also had a head MRA and that showed an unremarkable MRA of the brain, old left cerebellar infarct changes. PHYSICAL EXAMINATION: HEENT: Sclerae anicteric. NECK: Supple. CARDIAC: S1, S2. LUNGS: Sounds are clear. ABDOMEN: With bowel sounds, soft, nontender. RECTAL: No mass palpated. It looks like hemorrhoid at the anal outside the rectal area, no blood wa s noted on the glove, it was clean. ASSESSMENT: This is a 56-year-old male with history of coronary artery disease with multiple PCIs, o n Plavix, history of hypertension, who came in with complaints of worsening left lower quadrant pain. Now this morning, he had hematochezia. He does have a history of peptic ulcer disease. Last endos copy was done in 2015, and he was recommended repeat endoscopy; the patient did not go for this. A c olonoscopy was also done and that was in August 2015, and found to have multiple colon polyps, hemorrho ids, and diverticulosis. PLAN: Change diet to clear liquid diet for now. Medical team has put on hold the aspirin as well as his Plavix and Lovenox. Continue PPI; he is on Protonix 40 b.i.d. In review of medication, it seem s patient is refusing PPI. Continue to monitor for GI bleeding. The patient may benefit from repeat endoscopy in view of peptic ulcer disease. The patient's stool studies are pending. Case discussed with Dr. Verdugo, who is covering rounds. Carolina HERNÁNDEZ cc: [id number] TT: 08/11/2016 16:41:38 Confirmation # [id number] Dictation # [id number] bn
--- NOTE | 2016-08-11 17:16 | NM ---
COMPARISON: No prior similar study for comparison TECHNIQUE: 40 mCi technetium 99-m DTPA aerosol Four mCI technetium 99-m MAA administered intravenously. FINDINGS: VENTILATION COMPONENT: Markedly heterogeneous may be due to underline emphysema or COPD. PERFUSION COMPONENT: No evidence of segmental or subsegmental mismatching perfusion defect IMPRESSION: Lowprobability ventilation perfusion scan for pulmonary embolism. Preliminary report was submitted by virtual Radiology.
[2016-08-11] MEDS: Sodium Chloride 0.9% 1,000 ML IV SCH (18:08)
--- NOTE | 2016-08-11 18:45 | PN ---
DATE: 08/11/2016 ADDENDUM This is an addendum to the GI progress report dictated by Carolina Kim APN. The patient was seen and evaluated earlier. The patient had episodes of bright red blood per rectum with brown stool earlier today. He was also found to have a slightly reduced low blood pressure. He has received some saline. His diet has been changed to a clear liquid diet. The patient has a hist ory of ulcer disease. He had an endoscopy done and also colonoscopy done in 2016. The colonoscopy r evealed multiple polyps, diverticulosis and hemorrhoids. An endoscopy revealed a small gastric ulcer . The patient did not have any followup endoscopy. The patient was on aspirin, Plavix and also Love nox, which has been on hold now. Past history of coronary artery disease, multiple stents placed in the past. Last endoscopy done was in . On examination, abdomen soft. He was describing cb e discomfort in the left side of the abdomen. It sometimes radiates to the suprapubic area. His danielle in discomfort has decreased as per the patient. RECOMMENDATIONS: Followup of the hemoglobin, hematocrit and the patient is on PPI. The patient is o n pantoprazole, will continue that. The patient may benefit from the flexible sigmoidoscopy and colo noscopy and upper GI endoscopy to further evaluate after reviewing the previous workup. which we will consider based on the clinical course. Judith Verdugo MD cc: [id number] TT: 08/11/2016 18:44:40 Confirmation # [id number] Dictation # [id number] mn
[2016-08-11 22:12] LABS: HEMATOCRIT 37.5 % (42.0-52.0)
[2016-08-12] MEDS: Sodium Chloride 0.9% 1,000 ML IV SCH ×2 (04:31→14:30)
[2016-08-12] MEDS: Pantoprazole 40 mg EC Tab PO SCH ×2 (06:31→18:05)
[2016-08-12 07:16] LABS: ADD MANUAL DIFF? NO
[2016-08-12 07:25] LABS: BASO # 0.02 K/mm3 (0.0-2.0); BASO % 0.3 % (0.0-3.0); EOS # 0.3 (0.0-0.7); EOS % 3.6 % (1.5-5.0); GRAN # 4.03 (1.4-6.5); GRAN % 58.1 % (50.0-68.0); HEMATOCRIT 39.8 % (42.0-52.0); LYMPH % 28.1 % (22.0-35.0); MEAN CELL VOLUME 98.5 fL (80.0-105.0); MEAN CORPUSCULAR HEMOGLOBIN 33.4 pg (25.0-35.0); MEAN CORPUSCULAR HGB CONC 33.9 g/dl (31.0-37.0); MONO # 0.7 (0.1-0.6); MONO % 9.9 % (1.0-6.0); PLATELET COUNT 230 10^3/uL (120.0-450.0); RED CELL DISTRIBUTION WIDTH 12.4 % (11.5-14.5); WHITE BLOOD COUNT 6.9 10^3/ul (4.5-11.0)
[2016-08-12] MEDS: Multivitamin Vitamin B Complex (Nephro-Vite) Tab PO SCH (08:21)
[2016-08-12 08:52] LABS: ALB/GLOB RATIO 1.2 (1.1-1.8); ALKALINE PHOSPHATASE 45 U/L (38-133); ALT/SGPT 50 U/L (7-56); AST/SGOT 52 U/L (15-59); BILIRUBIN,TOTAL 0.9 mg/dL (0.2-1.3); BLOOD UREA NITROGEN 6 mg/dL (7-21); CALCIUM 8.9 mg/dL (8.4-10.5); CARBON DIOXIDE 29 mmol/L (21-33); CHLORIDE 106 mmol/L (98-107); GFR AFRICAN-AMERICAN > 60; GLUCOSE,RANDOM 82 mg/dL (70-110); POTASSIUM 3.9 mmol/L (3.6-5.0); SODIUM 141 mmol/L (132-148); TOTAL PROTEIN 6.4 g/dL (5.8-8.3)
[2016-08-12] MEDS: Thiamine 100 mg/ml Inj IM SCH (10:09)
[2016-08-12] MEDS: Lactobacillus Acidophilus 500 MU Cap PO SCH ×2 (10:09→18:05)
--- NOTE | 2016-08-12 12:52 | CP.PCM.PN ---
<Henri Diehl - Last Filed: 08/12/16 12:43> Subjective - Date & Time of Evaluation Date of Evaluation: 08/12/16 Time of Evaluation: 07:10 - Subjective Subjective: Medicine Progress note: Pt is seen and examined at bedside. No acute events overnight. Pt had 1 episode of bright red blood per rectum this am. NPO after midnight for EDG/ Colonoscopy per GI. Denies any f/c, sob, cp, n/v/d. Objective - Vital Signs/Intake and Output Vital Signs (last 24 hours): Temp Pulse Resp BP Pulse Ox 97.9 F 58 L 20 141/75 98 08/12/16 12:00 08/12/16 12:00 08/12/16 12:00 08/12/16 12:00 08/12/16 06:00 Intake and Output: 08/12/16 08/12/16 06:59 18:59 Intake Total 180 Output Total 1900 Balance -1720 - Medications Medications: Current Medications Acetaminophen (Tylenol 325mg Tab) 650 mg PO Q6H PRN PRN Reason: Fever >100.4 F Albuterol Sulfate (Albuterol 0.083% Inhal Vanessa (2.5 Mg/3 Ml) Ud) 2.5 mg IH Q2H PRN PRN Reason: Shortness of Breath Alprazolam (Xanax) 0.5 mg PO Q8H PRN; Protocol PRN Reason: Anxiety Stop: 08/17/16 00:30 Last Admin: 08/11/16 10:06 Dose: 0.5 mg Aspirin (Ecotrin) 81 mg PO DAILY [facility] Last Admin: 08/10/16 10:04 Dose: 81 mg Atorvastatin Calcium (Lipitor) 40 mg PO DIN [facility] Last Admin: 08/11/16 17:41 Dose: Not Given Chlordiazepoxide (Librium) 10 mg PO Q8H PRN; Protocol PRN Reason: EtOH Withdrawal Clopidogrel Bisulfate (Plavix) 75 mg PO QAM [facility] Last Admin: 08/10/16 10:04 Dose: 75 mg Enoxaparin Sodium (Lovenox) 40 mg SC DAILY [facility] PRN Reason: Protocol Last Admin: 08/10/16 10:03 Dose: 40 mg Sodium Chloride (Sodium Chloride 0.9%) 1,000 mls @ 100 mls/hr IV .Q10H [facility] Last Admin: 08/12/16 04:31 Dose: 100 mls/hr Lactobacillus Acidophilus (Bacid Acidophilus) 1 cap PO BID [facility] Last Admin: 08/12/16 10:09 Dose: 1 cap Nicotine (Nicoderm Cq) 1 patch TD DAILY [facility] Last Admin: 08/12/16 10:10 Dose: Not Given Ondansetron HCl (Zofran Inj) 8 mg IVP Q8H PRN PRN Reason: Nausea/Vomiting Pantoprazole Sodium (Protonix Ec Tab) 40 mg PO 0600,1600 [facility] Last Admin: 08/12/16 06:31 Dose: 40 mg Polyethylene Glycol/Electrolytes (Golytely) 4,000 ml PO ONCE ONE Stop: 08/12/16 16:01 Thiamine HCl (Vitamin B1 Inj) 100 mg IM DAILY [facility] Last Admin: 08/12/16 10:09 Dose: 100 mg Vitamin B Complex/Vit C/Folic Acid (Nephro-Michelle) 1 tab PO 0800 [facility] Last Admin: 08/12/16 08:21 Dose: 1 tab - Labs Labs: 08/12/16 06:30 08/12/16 08:38 - Constitutional Appears: No Acute Distress - Head Exam Head Exam: ATRAUMATIC, NORMAL INSPECTION, NORMOCEPHALIC - Eye Exam Eye Exam: EOMI, Normal appearance, PERRL Pupil Exam: NORMAL ACCOMODATION, PERRL - ENT Exam ENT Exam: Mucous Membranes Moist, Normal Exam - Neck Exam Neck Exam: Full ROM, Normal Inspection. absent: Lymphadenopathy - Respiratory Exam Respiratory Exam: Clear to Ausculation Bilateral, NORMAL BREATHING PATTERN. absent: Wheezes - Cardiovascular Exam Cardiovascular Exam: REGULAR RHYTHM, RRR, +S1, +S2. absent: Murmur - GI/Abdominal Exam GI & Abdominal Exam: Soft, Normal Bowel Sounds. absent: Distended, Tenderness - Extremities Exam Extremities Exam: Full ROM, Normal Capillary Refill, Normal Inspection. absent : Joint Swelling, Pedal Edema - Back Exam Back Exam: NORMAL INSPECTION - Neurological Exam Neurological Exam: Alert, Awake, CN II-XII Intact, Normal Gait, Oriented x3 - Psychiatric Exam Psychiatric exam: Normal Affect, Normal Mood - Skin Skin Exam: Dry, Intact, Normal Color, Warm Assessment and Plan - Assessment and Plan (Free Text) Assessment: 56yo M w/ a PMhx of CAD with 5 stents, hypertension, hyperlipidemia, gastric ulcer, and alcohol abuse who is presenting to the hospital for a 4d history of LLQ pain, and L sided weakness/ symptoms. 1. GI bleed - this am another episode of GI bleed per rectum - NPO after midnight - Plan for EGD/ colonoscopy jordan - CT abd - hypoattenuation of liver compatiable with hepatic steatosis, suspect more focal fatty sparring of adjacent ligamentous ibarra, scattered divericulosis w/o evidence of diverticulitis - GI - Dr Verdugo consulted and appreciate recs - Hold aspirin, plavix and lovenox - Protonix 40mg PO BID 2. L sided weakness / symptoms - CT head - generalized atrophy, somewhat rounded and irregular hypodense regions are note with in the L cerebellum of unclear significance, non specific white matter changes, correlate clinically for sinusitis. Recommend MRI - MRI - small venous angioma L post superior frontoparietal old infarct in L cerebellum minor chronic white matter changes, no evidence of enhancing mass collection, or meningeal enhancement - MRA - old L old cerebellar infarct - Ext US: negative for DVTs - Neurology consulted- recommended MRI, MRA - old cerebellar infarct on MRI and MRA, and venous angioma. Pt symptoms likely a transient parethesia 2/2 anxiety. Vit B12 485 , Ceruloplamin 21 . Cont aspirin, plavix, statin 3. Chest pain - Trops x 2 negative - Elevated D-Dimer - V/Q scan- low probability of PE - Cont to monitor 4. CAD multiple stents - Hold aspirin plavix, lovenox for now - cont Lipitor 5. ETOH intox/withdrwal - Librium 10mg Q8H PRN - Thiamine, Vitamin B - Educated on importance on quitting drinking Case and plan was seen, reviewed and discussed in detail with Dr Kebede. <Neno Kebede - Last Filed: 08/12/16 13:56> Objective - Vital Signs/Intake and Output Vital Signs (last 24 hours): Temp Pulse Resp BP Pulse Ox 97.9 F 58 L 20 141/75 98 08/12/16 12:00 08/12/16 12:00 08/12/16 12:00 08/12/16 12:00 08/12/16 06:00 Intake and Output: 08/12/16 08/12/16 06:59 18:59 Intake Total 180 Output Total 1900 Balance -1720 - Medications Medications: Current Medications Acetaminophen (Tylenol 325mg Tab) 650 mg PO Q6H PRN PRN Reason: Fever >100.4 F Albuterol Sulfate (Albuterol 0.083% Inhal Vanessa (2.5 Mg/3 Ml) Ud) 2.5 mg IH Q2H PRN PRN Reason: Shortness of Breath Alprazolam (Xanax) 0.5 mg PO Q8H PRN; Protocol PRN Reason: Anxiety Stop: 08/17/16 00:30 Last Admin: 08/11/16 10:06 Dose: 0.5 mg Aspirin (Ecotrin) 81 mg PO DAILY [facility] Last Admin: 08/10/16 10:04 Dose: 81 mg Atorvastatin Calcium (Lipitor) 40 mg PO DIN [facility] Last Admin: 08/11/16 17:41 Dose: Not Given Chlordiazepoxide (Librium) 10 mg PO Q8H PRN; Protocol PRN Reason: EtOH Withdrawal Clopidogrel Bisulfate (Plavix) 75 mg PO QAM [facility] Last Admin: 08/10/16 10:04 Dose: 75 mg Enoxaparin Sodium (Lovenox) 40 mg SC DAILY [facility] PRN Reason: Protocol Last Admin: 08/10/16 10:03 Dose: 40 mg Sodium Chloride (Sodium Chloride 0.9%) 1,000 mls @ 100 mls/hr IV .Q10H [facility] Last Admin: 08/12/16 04:31 Dose: 100 mls/hr Lactobacillus Acidophilus (Bacid Acidophilus) 1 cap PO BID [facility] Last Admin: 08/12/16 10:09 Dose: 1 cap Nicotine (Nicoderm Cq) 1 patch TD DAILY [facility] Last Admin: 08/12/16 10:10 Dose: Not Given Ondansetron HCl (Zofran Inj) 8 mg IVP Q8H PRN PRN Reason: Nausea/Vomiting Pantoprazole Sodium (Protonix Ec Tab) 40 mg PO 0600,1600 [facility] Last Admin: 08/12/16 06:31 Dose: 40 mg Polyethylene Glycol/Electrolytes (Golytely) 4,000 ml PO ONCE ONE Stop: 08/12/16 16:01 Thiamine HCl (Vitamin B1 Inj) 100 mg IM DAILY [facility] Last Admin: 08/12/16 10:09 Dose: 100 mg Vitamin B Complex/Vit C/Folic Acid (Nephro-Michelle) 1 tab PO 0800 [facility] Last Admin: 08/12/16 08:21 Dose: 1 tab - Labs Labs: 08/12/16 06:30 08/12/16 08:38 Attending/Attestation - Attestation I have personally seen and examined this patient.: Yes I have fully participated in the care of the patient.: Yes I have reviewed all pertinent clinical information, including history, physical exam and plan: Yes Notes (Text): 08/12/16 13:54 56 year old male with past medical history of CAD s/p stents, hypertension, gastric ulcer and alcohol abuse who presented with complaint of lower abdominal pain and blood in stools. CT abd/pelvis showed hepatitic steatosis and scattered diverticulosis without evidence of diverticulitis. He had episode of BRBPR yesterday and today. GI is following and plan is for EGD/colonoscopy tomorrow. His hemoglobin remains stable. Continue with protonix. His aspirin and plavix are on hold for now. He initially complained of left sided numbness/weakness which improved. CT head showed generalized atrophy, somewhat rounded/irregular hypodense regions in the left cerebellum and non specific white matter changes. MRA head showed old left cerebellar infarct changes. MRI brain showed small venous angioma left posterior superior frontoparietal region. Neurology evaluation was appreciated who recommended stroke preventive measures with aspirin/plavix (on hold for now as above) and statin. Also recommended repeat MRI brain in 6 months. PT evaluation was also appreciated. D-dimer was elevated. However Doppler and VQ scan are negative. Serial cardiac enzymes were negative. He was counselled on alcohol abstinence. Continue with librium prn. He is on thiamine and multivitamin. Neno Kebede MD Hospitalist.
[2016-08-12] MEDS ORDERED: Peg-Electrolyte Oral Soln 4L (Golytely) PO ONE (16:00)
--- NOTE | 2016-08-12 16:22 | PN ---
DATE: 08/12/2016 The patient was seen and examined earlier today. The patient reported noticing some blood in the sto ol this morning. Denies any nausea, vomiting, shortness of breath or chest pain. Does not complain of abdominal pain, but complaining now of right groin pain. He is also complaining of increased urin ation as well, noticing some burning. VITAL SIGNS: Temperature 98.4, blood pressure was 148/75, pulse 54, respirations 20, 98 on room air. LABORATORY DATA: WBC 6.9, H and H is 13.5 and 39.8, platelets are 230. Chemistry: Sodium 141, K is 3.9, BUN 6, creatinine is 0.8. LFTs are within normal limits. PHYSICAL EXAMINATION: HEENT: Sclerae are anicteric. NECK: Supple. CARDIAC: S1, S2. LUNGS: Sounds are clear. ABDOMEN: With bowel sounds, soft, nontender, no rebound or guarding. He has some right groin tender ness, but I did not palpate any hernia. EXTREMITIES: No edema. NEUROLOGIC: Awake, alert, and oriented. ASSESSMENT: This is a 56-year-old male who came with abdominal pain, now with gastrointestinal bleed . He does have a history of gastric ulcers, history of alcohol abuse, hypertension, coronary artery disease with 5 stents. His hemoglobin is stable. PLAN: Do a flex sigmoidoscopy tomorrow. He is already on a clear liquid diet. We will give him GoL YTELY to clean him out. His Plavix is on hold as well as the aspirin. The patient also complaining of dysuria. We will request for urine culture. His aspirin is on hold as well as the Plavix and Briana enox. Continue PPI. He is also on IV fluids for hydration, on Librium p.r.n. Did not notice any tr emors. N.p.o. after midnight and repeat labs in the morning. I spoke to the patient who agrees for the procedure. Discussed with Dr. Verdugo who is covering rounds. I also spoke to the medical team . Carolina Cardenases BETTY cc: [id number] TT: 08/12/2016 16:21:53 Confirmation # [id number] Dictation # [id number]
--- NOTE | 2016-08-12 19:49 | CON ---
DATE: 08/12/2016 REASON FOR CONSULTATION AND FOLLOWUP: Preoperative evaluation to ____ for colonoscopy, history of mu ltiple stents, off aspirin and Plavix. Cardiac evaluation. BRIEF CLINICAL HISTORY: This is a 56-year-old male with history of coronary artery disease, status m ultiple stents, hypertension, hyperlipidemia, gastric ulcer, alcohol abuse, came to the [facility] with complaint of left upper quadrant pain. The patient is going for endoscopy and colonoscopy. D enies any chest pain, denies shortness of breath, denies any palpitation. PAST MEDICAL HISTORY: Significant for CAD, history of multiple stents in LAD, RCA. Last stent was 1 03/01/2014. Last catheterization was 04/25/2015 where the patient had only cardiac cath ____ of proxi mal LAD with an abdominal aortogram and bilateral lower extremity runoff was done, no stent was place d. SOCIAL HISTORY: Significant for tobacco abuse as well as alcohol abuse. PREVIOUS CARDIAC WORKUP FOLLOWS: The patient had a stent and RPDA 12/31/2014, history of mid LAD PTCA 12/03/2014. Most recent cardiac catheterization was on 04/25/2015 because patient complaining o f new dyspnea on exertion and chest pain on exertion and admitted with unstable angina. The cardiac catheterization revealed a patent stent in LAD, patent stent in RPDA, proximal LAD eccentric plaque 4 0%-50% stenosis. FFR was done 0.97, low normal ejection fraction 35%. Abdominal aortogram and perip heral angiogram up to mid-thigh was done, showed no significant flow limiting stenosis. Medical felisha tment recommended. SOCIAL HISTORY: Active tobacco abuse, active alcohol abuse. CURRENT MEDICATIONS: The patient before he came to the hospital was taking atorvastatin 40 mg, aspir in 81 mg, Plavix 5 mg, Xanax 0.5 mg daily. ALLERGIES: No known drug allergies. REVIEW OF SYSTEMS: As per HPI. PHYSICAL EXAMINATION: VITAL SIGNS: Temperature afebrile, heart rate 50, blood pressure 141/75. HEENT: PERRLA. Extraocular muscles intact. NECK: Supple. No carotid bruits. No thyromegaly. CHEST: Clear to auscultation. HEART: S1, S2 regular. ABDOMEN: Soft. EXTREMITIES: Clubbing and cyanosis negative. BLOOD WORKUP: As follows: WBC 6.9, hemoglobin 13.5, hematocrit 39.8, platelet count 230. Chemistry shows sodium 141, potassium 3.9, chloride 106, ____ anion gap of 10, BUN 6, creatinine 0.8. EKG suzanne wed normal sinus. On admission, EKG showed normal sinus, poor R-wave progression, heart rate 71. LABORATORY DATA: Blood workup as follows: WBC 6.9, hemoglobin 13.5, hematocrit 39.8, platelet count 230. Chemistry shows sodium 141, potassium 3.9, chloride 106, carbon dioxide 20, anion gap of 10, B UN 6, creatinine 0.8. Troponin on admission was negative. IMPRESSION: No complaint of chest pain. Preop evaluation and risk stratification for colonoscopy an d endoscopy, history of coronary artery disease, status multiple stents, history of last catheterizat ion on 04/25/2015 that shows patent stent, FFR was normal at 0.97. No intervention was done. The pa anuradhant had last stent was done in right posterior descending artery 12/31/2014 and before that percuta neous transluminal coronary angioplasty of left anterior descending was done 12/03/2014. Right poste rior descending artery with a staged percutaneous transluminal coronary angioplasty of right coronary artery. Prior to that, patient had a stent in 2014, last stent was a year and a half ago, on hold a spirin and Plavix, so commented on this, it is safe to stop aspirin and Plavix for endoscopy and colo noscopy, history of alcohol abuse, tobacco abuse, history of noncompliance with the medication. RECOMMENDATION: Emphasis made for the compliance with the medication, complete abstinence of alcohol , complete cessation of smoking and the patient is cleared from cardiac point of view to go for endos copy and colonoscopy. No absolute contraindication. No evidence of angina, no evidence of congestiv e heart failure. No evidence of arrhythmia. The patient is cleared from cardiac point of view with moderate risk underlying comorbidity and related. We will follow with you. Thank you, Dr. Kebede, for providing the opportunity in taking care of the patient. The patient is no t on beta-sharla because the patient runs always bradycardia. Baseline the patient has bradycardia and never been on a beta-sharla. ____ Yajaira Vazquez MD cc: [id number] TT: 08/12/2016 19:49:02 Confirmation # [id number] Dictation # [id number] jn
--- NOTE | 2016-08-12 22:03 | PN ---
DATE: 08/12/2016 ADDENDUM HISTORY OF PRESENT ILLNESS: This is an addendum to the GI progress report dictated by [place]. At the time of examination, he finished drinking GoLYTELY. No further episodes of bleeding, bu t he still complains of some discomfort in the left side of the abdomen. PHYSICAL EXAMINATION: Abdomen is soft. There is no mass palpable. There is mild tenderness present in the left side of the abdomen. There is no rebound or guarding. DIAGNOSTIC DATA: The CT scan was reviewed also. RECOMMENDATIONS: The patient was on aspirin, Plavix and Lovenox, which have been on hold now. Recom mendation is to consider flexible sigmoidoscopy in the a.m. and also upper GI endoscopy. The patient has a history of gastric ulcers. Thank you very much for allowing me to participate in the care of the patient. Judith Verdugo MD cc: [id number] TT: 08/12/2016 22:02:34 Confirmation # [id number] Dictation # [id number]
[2016-08-13] MEDS: Pantoprazole 40 mg EC Tab PO SCH (05:52)
[2016-08-13 06:31] LABS: ADD MANUAL DIFF? NO
[2016-08-13 06:34] LABS: BASO # 0.02 K/mm3 (0.0-2.0); BASO % 0.3 % (0.0-3.0); EOS # 0.2 (0.0-0.7); EOS % 3.5 % (1.5-5.0); GRAN # 3.86 (1.4-6.5); GRAN % 61.5 % (50.0-68.0); HEMATOCRIT 39.5 % (42.0-52.0); LYMPH # 1.6 (1.2-3.4); MEAN CORPUSCULAR HEMOGLOBIN 33.1 pg (25.0-35.0); MEAN CORPUSCULAR HGB CONC 33.4 g/dl (31.0-37.0); MEAN PLATELET VOLUME 9.7 fl (7.0-11.0); MONO # 0.6 (0.1-0.6); MONO % 9.7 % (1.0-6.0); PLATELET COUNT 220 10^3/uL (120.0-450.0); RED CELL DISTRIBUTION WIDTH 12.4 % (11.5-14.5); WHITE BLOOD COUNT 6.3 10^3/ul (4.5-11.0)
[2016-08-13 07:01] LABS: PHOSPHOROUS 4.4 mg/dL (2.5-4.5)
[2016-08-13 07:20] LABS: INR 0.97 (0.93-1.08); PARTIAL THROMBOPLASTIN TIME 27.7 Seconds (23.7-30.8)
[2016-08-13 07:51] LABS: ALB/GLOB RATIO 1.2 (1.1-1.8); ALKALINE PHOSPHATASE 45 U/L (38-133); ALT/SGPT 53 U/L (7-56); AST/SGOT 52 U/L (15-59); BILIRUBIN,TOTAL 0.9 mg/dL (0.2-1.3); BLOOD UREA NITROGEN 7 mg/dL (7-21); CALCIUM 8.7 mg/dL (8.4-10.5); CARBON DIOXIDE 27 mmol/L (21-33); CHLORIDE 106 mmol/L (98-107); GFR AFRICAN-AMERICAN > 60; GLUCOSE,RANDOM 79 mg/dL (70-110); POTASSIUM 3.8 mmol/L (3.6-5.0); SODIUM 139 mmol/L (132-148); TOTAL PROTEIN 6.5 g/dL (5.8-8.3)
[2016-08-13] MEDS: Sodium Chloride 0.9% 1,000 ML IV SCH (08:29)
[2016-08-13] MEDS: Multivitamin Vitamin B Complex (Nephro-Vite) Tab PO SCH (08:29)
[2016-08-13] MEDS: Lactobacillus Acidophilus 500 MU Cap PO SCH (09:53)
[2016-08-13] MEDS: Thiamine 100 mg/ml Inj IM SCH (09:53)
[2016-08-13 11:06] VITALS: TEMP 98.2
[2016-08-13] MEDS ORDERED: Propofol 10 mg/ml Inj (20 ML) ONE (11:18)
[2016-08-13] MEDS ORDERED: Lidocaine 2% Inj (20ml) ONE (11:18)
[2016-08-13] MEDS ORDERED: Sodium Chloride 0.9% 500 ML IV SCH (11:45)
[2016-08-13 11:57] VITALS: BP 130/63; RESP 17
[2016-08-13 12:11] VITALS: PULSE 64; O2SAT 99
--- NOTE | 2016-08-13 14:32 | PN ---
DATE: 08/13/2016 REASON FOR CONSULTATION AND FOLLOWUP: Preop followup for endoscopy and question is to continuation o f aspirin and Plavix duration. BRIEF CLINICAL HISTORY: This is a 56-year-old male with past medical history of multiple stents, las t stent in LAD 11/2014 and in RCA 12/2014, admitted with abdominal pain, is going for endoscopy and c olonoscopy today. Denies any chest pain, shortness of breath, any palpitation, off aspirin and Plavi x. PHYSICAL EXAMINATION: VITAL SIGNS: Temperature afebrile, heart rate 64, blood pressure 130/60. HEENT: PERRLA. Extraocular muscles intact. NECK: Supple. No carotid bruits. No thyromegaly. CHEST: Clear to auscultation. HEART: S1, S2 regular. ABDOMEN: Soft. EXTREMITIES: Clubbing and cyanosis negative. LABORATORY DATA: Blood workup as follows: WBC 6.3, hemoglobin 13.2, hematocrit 39.5, platelet count 220. Chemistry shows sodium 131, potassium 3.0, chloride 106, carbon dioxide 27, anion gap of 10, B UN 8, creatinine 0.8. LDL 132, HDL 35, triglyceride 100, cholesterol 180. TSH was 4.29. IMPRESSION: History of multiple stents, abdominal pain, going for endoscopy and colonoscopy; hyperli pidemia, noncompliance with the medication, bradycardia baseline, not on beta sharla; history of las t stent in right posterior descending artery in 12/2014 and before that, a stent in 11/2014. Last ca rdiac catheterization on 04/25/2015, patent stent. Medical treatment was recommended. Fractional fl ow reserve on the left anterior descending was 0.79, duration was 35%. Abdominal aortogram, peripher al angiogram showed up to the mid thigh no significant stenosis. RECOMMENDATION: Keep off aspirin and Plavix until the patient has endoscopy done After the endoscop y, if the patient is found an ulcer and precludes continuation of dual antiplatelet therapy with aspi rin and Plavix, then continue baby aspirin, but if there is no contraindication to aspirin and Plavix since the patient has multiple stents, suggest total duration for 2-3 years of Plavix and dual antip latelet therapy. Discussed with Dr. Kebede, attending taking care of the patient. We will follow aarti h you. We will discontinue telemetry. Thank you, Dr. Kebede, for providing us opportunity in taking care of the patient. We will supplement potassium after the patient had endoscopy, colonoscopy because of potassium level. We will follow w ith you. Yajaira Vazquez MD cc: [id number] TT: 08/13/2016 14:31:33 Confirmation # [id number] Dictation # [id number]
[2016-08-13] MEDS ORDERED: Potassium Chloride 20 mEq ER Tab PO ONE (17:00)
--- NOTE | 2016-08-13 17:25 | CP.PCM.DIS ---
<Henri Diehl - Last Filed: 08/13/16 17:12> Provider - Provider Date of Admission: 08/11/16 11:15 Attending physician: Neno Kebede MD Primary care physician: Harrison Mccall MD Consults: GI, Cardio, Neuro Time Spent in preparation of Discharge (in minutes): 45 Hospital Course - Lab Results Lab Results: Most Recent Lab Values WBC 6.3 10^3/ul (4.5-11.0) 08/13/16 05:35 RBC 3.99 10^6/uL (3.5-6.1) 08/13/16 05:35 Hgb 13.2 gm/dL (14.0-18.0) L 08/13/16 05:35 Hct 39.5 % (42.0-52.0) L 08/13/16 05:35 MCV 99.0 fL (80.0-105.0) 08/13/16 05:35 MCH 33.1 pg (25.0-35.0) 08/13/16 05:35 MCHC 33.4 g/dl (31.0-37.0) 08/13/16 05:35 RDW 12.4 % (11.5-14.5) 08/13/16 05:35 Plt Count 220 10^3/uL (120.0-450.0) 08/13/16 05:35 MPV 9.7 fl (7.0-11.0) 08/13/16 05:35 Gran % 61.5 % (50.0-68.0) 08/13/16 05:35 Lymph % (Auto) 25.0 % (22.0-35.0) 08/13/16 05:35 [place] % (Auto) 9.7 % (1.0-6.0) H 08/13/16 05:35 Eos % (Auto) 3.5 % (1.5-5.0) 08/13/16 05:35 Baso % (Auto) 0.3 % (0.0-3.0) 08/13/16 05:35 Gran # 3.86 (1.4-6.5) 08/13/16 05:35 Lymph # 1.6 (1.2-3.4) 08/13/16 05:35 [place] # 0.6 (0.1-0.6) 08/13/16 05:35 Eos # 0.2 (0.0-0.7) 08/13/16 05:35 Baso # 0.02 K/mm3 (0.0-2.0) 08/13/16 05:35 PT 10.5 Seconds (9.9-11.8) 08/13/16 05:35 INR 0.97 (0.93-1.08) 08/13/16 05:35 APTT 27.7 Seconds (23.7-30.8) 08/13/16 05:35 D-Dimer, Quantitative 0.62 mg/L FEU (0-0.50) H 08/10/16 08:15 pO2 22 mm/Hg (30-55) L 08/11/16 16:06 VBG pH 7.36 (7.32-7.43) 08/11/16 16:06 VBG pCO2 54.0 (40-60) 08/11/16 16:06 VBG HCO3 30.5 mmol/l (21-28) H 08/11/16 16:06 VBG Total CO2 32.2 mmol.L (22-28) H 08/11/16 16:06 VBG O2 Sat (Calc) 36.3 % (40-65) L 08/11/16 16:06 VBG Base Excess 3.7 mmol/L (0.0-2.0) H 08/11/16 16:06 VBG Potassium 4.1 mmol/L (3.6-5.2) 08/11/16 16:06 Sodium 138.0 mmol/L (132-148) 08/11/16 16:06 Chloride 106.0 mmol/L (98-107) 08/11/16 16:06 Glucose 121 mg/dl (75-110) H 08/11/16 16:06 Lactate 1.2 mmol/L (0.7-2.1) 08/11/16 16:06 FiO2 21.0 % 08/11/16 16:06 Sodium 139 mmol/L (132-148) 08/13/16 05:35 Potassium 3.8 mmol/L (3.6-5.0) 08/13/16 05:35 Chloride 106 mmol/L (98-107) 08/13/16 05:35 Carbon Dioxide 27 mmol/L (21-33) 08/13/16 05:35 Anion Gap 10 (10-20) 08/13/16 05:35 BUN 7 mg/dL (7-21) 08/13/16 05:35 Creatinine 0.8 mg/dL (0.5-1.4) 08/13/16 05:35 Est GFR ( Amer) > 60 08/13/16 05:35 Est GFR (Non-Af Amer) > 60 08/13/16 05:35 Random Glucose 79 mg/dL (70-110) 08/13/16 05:35 Hemoglobin A1c 5.3 % (4.2-6.5) 08/13/16 05:35 Calcium 8.7 mg/dL (8.4-10.5) 08/13/16 05:35 Phosphorus 4.4 mg/dL (2.5-4.5) 08/13/16 05:35 Magnesium 2.0 mg/dL (1.7-2.2) 08/13/16 05:35 Total Bilirubin 0.9 mg/dL (0.2-1.3) 08/13/16 05:35 AST 52 U/L (15-59) 08/13/16 05:35 ALT 53 U/L (7-56) 08/13/16 05:35 Alkaline Phosphatase 45 U/L (38-133) 08/13/16 05:35 Lactate Dehydrogenase 341 U/L (333-699) 08/10/16 07:55 Total Creatine Kinase 115 U/L (35-230) 08/10/16 07:55 Troponin I < 0.01 ng/mL 08/10/16 17:04 Total Protein 6.5 g/dL (5.8-8.3) 08/13/16 05:35 Albumin 3.6 g/dL (3.0-4.8) 08/13/16 05:35 Globulin 2.9 gm/dL 08/13/16 05:35 Albumin/Globulin Ratio 1.2 (1.1-1.8) 08/13/16 05:35 Ceruloplasmin 21 mg/dL (18-36) 08/11/16 08:00 Triglycerides 100 mg/dL (35-160) 08/13/16 05:35 Cholesterol 180 mg/dL (130-200) 08/13/16 05:35 LDL Cholesterol Direct 132 mg/dL (0-129) H 08/13/16 05:35 HDL Cholesterol 35 mg/dL (29-60) 08/13/16 05:35 Lipase 80 U/L (23-300) 08/09/16 21:25 Vitamin B12 485 pg/mL (239-931) 08/10/16 17:04 Free T4 0.89 ng/dL (0.78-2.19) 08/11/16 07:00 Thyroxine (T4) 5.4 ug/dL (5.5-11.0) L 08/10/16 17:04 TSH 3rd Generation 4.29 mIU/mL (0.46-4.68) 08/13/16 05:35 Venous Blood Potassium 4.1 mmol/L (3.6-5.2) 08/11/16 16:06 Urine Color yellow (YELLOW) 08/09/16 21:25 Urine Appearance Clear (CLEAR) 08/09/16 21:25 Urine pH 6.0 (4.7-8.0) 08/09/16 21:25 Ur Specific [place] <= 1.005 (1.005-1.035) 08/09/16 21:25 Urine Protein Negative mg/dL (<30 mg/dL) 08/09/16 21:25 Urine Glucose (UA) Negative mg/dL (NEGATIVE) 08/09/16 21:25 Urine Ketones Negative mg/dL (NEGATIVE) 08/09/16 21:25 Urine Blood Negative (NEGATIVE) 08/09/16 21:25 Urine Nitrate Negative (NEGATIVE) 08/09/16 21:25 Urine Bilirubin Negative (NEGATIVE) 08/09/16 21:25 Urine Urobilinogen 0.2 E.U./dL (<1 E.U./dL) 08/09/16 21:25 Ur Leukocyte Esterase Negative Augie/uL (NEGATIVE) 08/09/16 21:25 - Hospital Course Hospital Course: 56yo M w/ a PMhx of CAD with 5 stents, hypertension, hyperlipidemia, gastric ulcer, and alcohol abuse who is presenting to the hospital for abdominal pain, L sided weakness and chest discomfort. In the ED basic labwork was done. CXR shows no acive dx. CT abd - hypoattenuation of liver compatible with hepatic steatosis, suspect more focal fatty sparring of adjacent ligamentous ibarra, scattered divericulosis w/o evidence of diverticulitis. Patient was send to the floor for closer observation. Pt started to complain of L sided weakness. CT head was done and showed generalized atrophy, somewhat rounded and irregular hypodense regions are note with in the L cerebellum of unclear significance, non specific white matter changes, correlate clinically for sinusitis. Recommend MRI. Pt c/o some chest discomfort b/l which was worse with deep inspiration. Trops x 3 negative. Pt had elevated D dimer. Ext US: negative for DVTs. V/Q scan- low probability of PE. Neurology consulted recommended MRI/ MRA. MRI - small venous angioma L post superior frontoparietal old infarct in L cerebellum minor chronic white matter changes, no evidence of enhancing mass collection, or meningeal enhancement. 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 Pt Had 2 episodes of bright red blood per rectum and GI was consulted. Aspirin and plavix was held. PPI given. GI recommended a endoscopy and colonoscopy. Cardiology was consulted for clearance and stated the pt has moderate risk for procedure. Procedure showed gastritis and healed gastric ulcers, colon polyp at ascending colon and hemorrhoids. As per GI pt may resume his Aspirin and Plavix. Today the pt states that he feels much better. and his symptoms are much improved. He denies any alva, dizziness, f/c, sob, cp, abd pain, n/v/d. Discharge Exam - Head Exam Head Exam: ATRAUMATIC, NORMAL INSPECTION, NORMOCEPHALIC - Eye Exam Eye Exam: EOMI, Normal appearance, PERRL Pupil Exam: NORMAL ACCOMODATION, PERRL - Respiratory Exam Respiratory Exam: Clear to PA & Lateral. absent: Rales, Rhonchi, Wheezes - Cardiovascular Exam Cardiovascular Exam: REGULAR RHYTHM, RRR, +S1, +S2 - GI/Abdominal Exam GI & Abdominal Exam: Normal Bowel Sounds, Soft. absent: Tenderness - Neurological Exam Neurological exam: Alert, CN II-XII Intact, Normal Gait, Oriented x3, Reflexes Normal - Psychiatric Exam Psychiatric exam: Normal Affect, Normal Mood - Skin Skin Exam: Dry, Intact, Normal Color, Warm Discharge Plan - Follow Up Plan Condition: STABLE Disposition: HOME/ ROUTINE Instructions: Chest Pain (DC), How to Stop Smoking (DC), Gastrointestinal Bleeding (DC), Acute Abdominal Pain (DC) Additional Instructions: If your symptoms recur come back to the ED. Follow up with your PMD with in 2-3 days. Continue your Aspirin and Plavix. Referrals: Yajaira Vazquez MD [Staff Provider] - Dorian Gee MD [Staff Provider] - Judith Verdugo MD [Medical Doctor] - Harrison Mccall MD [Primary Care Provider] - <Neno Kebede - Last Filed: 08/14/16 14:01> Provider - Provider Date of Admission: 08/11/16 11:15 Attending physician: Neno Kebede MD Primary care physician: Harrison Mccall MD Hospital Course - Lab Results Lab Results: Micro Results 08/12/16 13:00 Urine,Clean Catch Urine Culture - Final No Growth (<1,000 CFU/ML) Most Recent Lab Values WBC 6.3 10^3/ul (4.5-11.0) 08/13/16 05:35 RBC 3.99 10^6/uL (3.5-6.1) 08/13/16 05:35 Hgb 13.2 gm/dL (14.0-18.0) L 08/13/16 05:35 Hct 39.5 % (42.0-52.0) L 08/13/16 05:35 MCV 99.0 fL (80.0-105.0) 08/13/16 05:35 MCH 33.1 pg (25.0-35.0) 08/13/16 05:35 MCHC 33.4 g/dl (31.0-37.0) 08/13/16 05:35 RDW 12.4 % (11.5-14.5) 08/13/16 05:35 Plt Count 220 10^3/uL (120.0-450.0) 08/13/16 05:35 MPV 9.7 fl (7.0-11.0) 08/13/16 05:35 Gran % 61.5 % (50.0-68.0) 08/13/16 05:35 Lymph % (Auto) 25.0 % (22.0-35.0) 08/13/16 05:35 [place] % (Auto) 9.7 % (1.0-6.0) H 08/13/16 05:35 Eos % (Auto) 3.5 % (1.5-5.0) 08/13/16 05:35 Baso % (Auto) 0.3 % (0.0-3.0) 08/13/16 05:35 Gran # 3.86 (1.4-6.5) 08/13/16 05:35 Lymph # 1.6 (1.2-3.4) 08/13/16 05:35 [place] # 0.6 (0.1-0.6) 08/13/16 05:35 Eos # 0.2 (0.0-0.7) 08/13/16 05:35 Baso # 0.02 K/mm3 (0.0-2.0) 08/13/16 05:35 PT 10.5 Seconds (9.9-11.8) 08/13/16 05:35 INR 0.97 (0.93-1.08) 08/13/16 05:35 APTT 27.7 Seconds (23.7-30.8) 08/13/16 05:35 D-Dimer, Quantitative 0.62 mg/L FEU (0-0.50) H 08/10/16 08:15 pO2 22 mm/Hg (30-55) L 08/11/16 16:06 VBG pH 7.36 (7.32-7.43) 08/11/16 16:06 VBG pCO2 54.0 (40-60) 08/11/16 16:06 VBG HCO3 30.5 mmol/l (21-28) H 08/11/16 16:06 VBG Total CO2 32.2 mmol.L (22-28) H 08/11/16 16:06 VBG O2 Sat (Calc) 36.3 % (40-65) L 08/11/16 16:06 VBG Base Excess 3.7 mmol/L (0.0-2.0) H 08/11/16 16:06 VBG Potassium 4.1 mmol/L (3.6-5.2) 08/11/16 16:06 Sodium 138.0 mmol/L (132-148) 08/11/16 16:06 Chloride 106.0 mmol/L (98-107) 08/11/16 16:06 Glucose 121 mg/dl (75-110) H 08/11/16 16:06 Lactate 1.2 mmol/L (0.7-2.1) 08/11/16 16:06 FiO2 21.0 % 08/11/16 16:06 Sodium 139 mmol/L (132-148) 08/13/16 05:35 Potassium 3.8 mmol/L (3.6-5.0) 08/13/16 05:35 Chloride 106 mmol/L (98-107) 08/13/16 05:35 Carbon Dioxide 27 mmol/L (21-33) 08/13/16 05:35 Anion Gap 10 (10-20) 08/13/16 05:35 BUN 7 mg/dL (7-21) 08/13/16 05:35 Creatinine 0.8 mg/dL (0.5-1.4) 08/13/16 05:35 Est GFR ( Amer) > 60 08/13/16 05:35 Est GFR (Non-Af Amer) > 60 08/13/16 05:35 Random Glucose 79 mg/dL (70-110) 08/13/16 05:35 Hemoglobin A1c 5.3 % (4.2-6.5) 08/13/16 05:35 Calcium 8.7 mg/dL (8.4-10.5) 08/13/16 05:35 Phosphorus 4.4 mg/dL (2.5-4.5) 08/13/16 05:35 Magnesium 2.0 mg/dL (1.7-2.2) 08/13/16 05:35 Total Bilirubin 0.9 mg/dL (0.2-1.3) 08/13/16 05:35 AST 52 U/L (15-59) 08/13/16 05:35 ALT 53 U/L (7-56) 08/13/16 05:35 Alkaline Phosphatase 45 U/L (38-133) 08/13/16 05:35 Lactate Dehydrogenase 341 U/L (333-699) 08/10/16 07:55 Total Creatine Kinase 115 U/L (35-230) 08/10/16 07:55 Troponin I < 0.01 ng/mL 08/10/16 17:04 Total Protein 6.5 g/dL (5.8-8.3) 08/13/16 05:35 Albumin 3.6 g/dL (3.0-4.8) 08/13/16 05:35 Globulin 2.9 gm/dL 08/13/16 05:35 Albumin/Globulin Ratio 1.2 (1.1-1.8) 08/13/16 05:35 Ceruloplasmin 21 mg/dL (18-36) 08/11/16 08:00 Triglycerides 100 mg/dL (35-160) 08/13/16 05:35 Cholesterol 180 mg/dL (130-200) 08/13/16 05:35 LDL Cholesterol Direct 132 mg/dL (0-129) H 08/13/16 05:35 HDL Cholesterol 35 mg/dL (29-60) 08/13/16 05:35 Lipase 80 U/L (23-300) 08/09/16 21:25 Vitamin B12 485 pg/mL (239-931) 08/10/16 17:04 Free T4 0.89 ng/dL (0.78-2.19) 08/11/16 07:00 Thyroxine (T4) 5.4 ug/dL (5.5-11.0) L 08/10/16 17:04 TSH 3rd Generation 4.29 mIU/mL (0.46-4.68) 08/13/16 05:35 Venous Blood Potassium 4.1 mmol/L (3.6-5.2) 08/11/16 16:06 Urine Color yellow (YELLOW) 08/09/16 21:25 Urine Appearance Clear (CLEAR) 08/09/16 21:25 Urine pH 6.0 (4.7-8.0) 08/09/16 21:25 Ur Specific [place] <= 1.005 (1.005-1.035) 08/09/16 21:25 Urine Protein Negative mg/dL (<30 mg/dL) 08/09/16 21:25 Urine Glucose (UA) Negative mg/dL (NEGATIVE) 08/09/16 21:25 Urine Ketones Negative mg/dL (NEGATIVE) 08/09/16 21:25 Urine Blood Negative (NEGATIVE) 08/09/16 21:25 Urine Nitrate Negative (NEGATIVE) 08/09/16 21:25 Urine Bilirubin Negative (NEGATIVE) 08/09/16 21:25 Urine Urobilinogen 0.2 E.U./dL (<1 E.U./dL) 08/09/16 21:25 Ur Leukocyte Esterase Negative Augie/uL (NEGATIVE) 08/09/16 21:25 Copper 70 mcg/dL (70-175) 08/11/16 06:00 Attending/Attestation - Attestation I have personally seen and examined this patient.: Yes I have fully participated in the care of the patient.: Yes I have reviewed all pertinent clinical information, including history, physical exam and plan: Yes Notes (Text): 08/13/16 56 year old male with past medical history of CAD s/p stents, hypertension, gastric ulcer and alcohol abuse who presented with complaint of lower abdominal pain and blood in stools. CT abd/pelvis showed hepatitic steatosis and scattered diverticulosis without evidence of diverticulitis. He had episode of BRBPR x 2 while in hospital. His aspirin and plavix were held. His hemoglobin remained stable. He was seen by GI and and EGD and flex sig with findings as above. GI is following and plan is for EGD/colonoscopy tomorrow. Case was discussed with cardiology and GI; okay to resume aspirin and plavix. He initially complained of left sided numbness/weakness which improved. CT head showed generalized atrophy, somewhat rounded/irregular hypodense regions in the left cerebellum and non specific white matter changes. MRA head showed old left cerebellar infarct changes. MRI brain showed small venous angioma left posterior superior frontoparietal region. Neurology evaluation was appreciated who recommended stroke preventive measures with aspirin/plavix (on hold for now as above) and statin. Also recommended repeat MRI brain in 6 months. D-dimer was elevated. However Doppler and VQ scan are negative. Serial cardiac enzymes were negative. He was counselled on alcohol abstinence. He is on thiamine and multivitamin. Patient is discharged home to follow up with his pmd Dr. Mccall. I did speak with Dr. Mccall while patient was admitted. Follow up with neurology; repeat MRI in 6 months. Follow up with GI and cardiology. Neno Kebede MD Hospitalist.
== END 2016-08-13 17:52 | disposition home or self-care (01) | DRG 378 ==
LOC: ED 20:41 → ERH 08-10 00:30 → 5RSO 08-10 02:39 → ERH 08-10 03:14 → 5RSO 08-10 03:37 → OBSVTOIN 08-11 11:15 → 2RNO 08-11 18:50
PROVIDERS: ADMIT Internal Medicine; ATTEND Internal Medicine
PROC: 0DJ08ZZ Inspection of Upper Intestinal Tract, Via Natural or Artificial Opening Endoscopic (ICD-10-PCS; principal; 2016-08-13 10:45)
PROC: 0DJD8ZZ Inspection of Lower Intestinal Tract, Via Natural or Artificial Opening Endoscopic (ICD-10-PCS; 2016-08-13 10:45)
DX: K92.2 Gastrointestinal hemorrhage, unspecified (principal); F10.239 Alcohol dependence with withdrawal, unspecified; I25.10 Atherosclerotic heart disease of native coronary artery without angina pectoris; K25.9 Gastric ulcer, unspecified as acute or chronic, without hemorrhage or perforation; K57.30 Diverticulosis of large intestine without perforation or abscess without bleeding; I10 Essential (primary) hypertension; E78.5 Hyperlipidemia, unspecified; F17.210 Nicotine dependence, cigarettes, uncomplicated; K63.5 Polyp of colon; F41.9 Anxiety disorder, unspecified; K21.9 Gastro-esophageal reflux disease without esophagitis; K76.0 Fatty (change of) liver, not elsewhere classified; R00.1 Bradycardia, unspecified; K29.70 Gastritis, unspecified, without bleeding; K64.9 Unspecified hemorrhoids; Z91.14 Patient's other noncompliance with medication regimen; Z79.02 Long term (current) use of antithrombotics/antiplatelets; Z79.82 Long term (current) use of aspirin; Z95.5 Presence of coronary angioplasty implant and graft; Z86.73 Personal history of transient ischemic attack (TIA), and cerebral infarction without residual deficits; Z80.8 Family history of malignant neoplasm of other organs or systems

== ENCOUNTER 2017-01-17 19:41 | Emergency (ER) | payer BC ==
[2017-01-17 19:55] VITALS: BMI 24.3
[2017-01-17 20:32] LABS: BASO # 0.03 K/mm3 (0.0-2.0); BASO % 0.4 % (0.0-3.0); EOS # 0.2 (0.0-0.7); GRAN # 4.06 (1.4-6.5); GRAN % 57.5 % (50.0-68.0); HEMATOCRIT 39.6 % (42.0-52.0); LYMPH % 28.3 % (22.0-35.0); MEAN CELL VOLUME 98.5 fl (80.0-105.0); MEAN CORPUSCULAR HEMOGLOBIN 33.6 pg (25.0-35.0); MEAN CORPUSCULAR HGB CONC 34.1 g/dl (31.0-37.0); MEAN PLATELET VOLUME 9.5 fl (7.0-11.0); MONO # 0.8 (0.1-0.6); MONO % 10.8 % (1.0-6.0); RED CELL DISTRIBUTION WIDTH 13.6 % (11.5-14.5); WHITE BLOOD COUNT 7.1 10^3/ul (4.5-11.0)
[2017-01-17 20:52] LABS: INR 0.92 (0.93-1.08); PARTIAL THROMBOPLASTIN TIME 28.2 Seconds (25.1-36.5)
[2017-01-17 20:53] LABS: ALB/GLOB RATIO 1.2 (1.1-1.8); ALKALINE PHOSPHATASE 55 U/L (38-126); ALT/SGPT 77 U/L (7-56); AMYLASE 71 U/L (35-125); AST/SGOT 77 U/L (17-59); BILIRUBIN,TOTAL 0.7 mg/dL (0.2-1.3); BLOOD UREA NITROGEN 10 mg/dL (7-21); CALCIUM 9.1 mg/dL (8.4-10.5); CARBON DIOXIDE 26 mmol/L (21-33); CHLORIDE 101 mmol/L (98-107); GFR AFRICAN-AMERICAN > 60; GLUCOSE,RANDOM 92 mg/dL (70-110); LIPASE 143 U/L (23-300); POTASSIUM 4.9 mmol/L (3.6-5.0); SODIUM 135 mmol/L (132-148); TOTAL PROTEIN 7.6 g/dL (5.8-8.3)
[2017-01-17 21:01] LABS: TROPONIN I < 0.01 ng/mL
[2017-01-17 21:06] LABS: URINE APPEARANCE CLEAR (CLEAR); URINE BILIRUBIN NEGATIVE (NEGATIVE); URINE COLOR YELLOW (YELLOW); URINE GLUCOSE (UA) NEGATIVE (NEGATIVE); URINE KETONE NEGATIVE (NEGATIVE)
[2017-01-17 21:07] LABS: URINE BLOOD NEGATIVE (NEGATIVE); URINE LEUKOCYTE ESTERASE NEGATIVE Leu/uL (NEGATIVE); URINE PROTEIN NEGATIVE mg/dL (<30 mg/dL); URINE UROBILINOGEN 0.2 E.U./dL (<1 E.U./dL)
--- NOTE | 2017-01-17 22:34 | CT ---
EXAM: CT Abdomen and Pelvis Without Intravenous Contrast CLINICAL HISTORY: 56 years old, male; Pain; Abdominal pain; Flank; Left upper quadrant (luq); Patient HX: Luq pain, ETOH; Additional info: Abd pain TECHNIQUE: Axial computed tomography images of the abdomen and pelvis without intravenous contrast. All CT scans at this facility use one or more dose reduction techniques, viz.: automated exposure control; ma/kV adjustment per patient size (including targeted exams where dose is matched to indication; i.e. head); or iterative reconstruction technique. Coronal and sagittal reformatted images were created and reviewed. COMPARISON: CT - ABD PELVIS IV CONTRAST ONLY 2016-08-09 22:41 FINDINGS: Limitations: Motion artifact - mild. Lower thorax: Minimal atelectasis/scarring. Coronary artery calcifications. ABDOMEN: Liver: Fatty infiltration. Gallbladder and bile ducts: No calcified stones. No ductal dilation. Pancreas: Unremarkable. No ductal dilation. Spleen: No splenomegaly. Adrenals: No mass. Kidneys and ureters: No renal calculi. Probable LEFT renal cyst. No hydronephrosis. Stomach and bowel: No definite mural thickening. No obstruction. Appendix: Normal caliber. No inflammation. PELVIS: Bladder: Unremarkable. No stones. Reproductive: Unremarkable as visualized. ABDOMEN and PELVIS: Intraperitoneal space: No significant fluid collection. No free air. Bones/joints: Degenerative changes of hips and spine. No acute fracture. Bone island. Soft tissues: Tiny umbilical hernia containing fat. Vasculature: Moderate atherosclerotic disease. No aneurysm. Lymph nodes: No pathologically enlarged lymph nodes. IMPRESSION: 1. No definite CT evidence of urolithiasis. 2. Incidental/non-acute findings are described above.
--- NOTE | 2017-01-17 22:45 | ED PDOC ---
Arrival/HPI - General Chief Complaint: Abdominal Pain Time Seen by Provider: 01/17/17 19:52 Historian: Patient - History of Present Illness Narrative History of Present Illness (Text): 01/17/17 20:00 Anuel Whitt is a 56 year old male, whose past medical history includes CAD with 5 stents, hypertension, hyperlipidemia, gastric ulcer, and alcohol abuse, complaining of LLQ pain for a few hours. Patient admits to drinking alcohol everyday. Patient denies any fever, chills, chest pain, shortness of breath, nausea, vomiting, diarrhea, urinary symptoms, back pain, neck pain, headache, dizziness, or any other complaints. Time/Duration: 4-6 hours Symptom Onset: Gradual Symptom Course: Unchanged Activities at Onset: Light Context: Home Past Medical History - Provider Review Nursing Documentation Reviewed: Yes - Infectious Disease Hx of Infectious Diseases: None - Tetanus Immunization Tetanus Immunization: Up to Date - Reproductive Currently : No - Cardiac Hx Cardiac Disorders: Yes - Pulmonary Hx Respiratory Disorders: No Hx Tuberculosis: No - Neurological Hx Neurological Disorder: No - HEENT Hx HEENT Disorder: No - Renal Hx Renal Disorder: No - Endocrine/Metabolic Hx Endocrine Disorders: No - Hematological/Oncological Hx Blood Transfusions: No Hx Blood Transfusion Reaction: No - Integumentary Hx Dermatological Disorder: No - Musculoskeletal/Rheumatological Hx Musculoskeletal Disorders: No Hx Falls: No - Gastrointestinal Hx Gastrointestinal Disorders: No - Genitourinary/Gynecological Hx Genitourinary Disorders: No - Psychiatric Hx Psychophysiologic Disorder: Yes Hx Anxiety: Yes Hx Depression: Yes Hx Substance Use: Yes - Past Surgical History Past Surgical History: No Previous - Surgical History Hx Cardiac Catheterization: Yes (x 4 stents) Hx Coronary Stent: Yes (x 5) - Anesthesia Hx Anesthesia Reactions: No Hx Malignant Hyperthermia: No - Suicidal Assessment Feels Threatened In Home Enviroment: No Family/Social History - Physician Review Nursing Documentation Reviewed: Yes Family/Social History: No Known Family HX Smoking Status: Current Some Days Smoker Hx Alcohol Use: Yes Frequency of alcohol use: Daily Hx Substance Use: Yes Hx Substance Use Treatment: No Allergies/Home Meds Allergies/Adverse Reactions: Allergies No Known Allergies Allergy (Verified 03/08/16 11:12) Home Medications: Home Meds Medication Instructions Recorded Confirmed Aspirin [Ecotrin] 81 mg PO DAILY 04/01/15 08/09/16 Atorvastatin [Lipitor] 40 mg PO DAILY 04/01/15 08/09/16 Clopidogrel [Plavix] 75 mg PO QAM 04/01/15 08/09/16 Review of Systems - Physician Review All systems were reviewed & negative as marked: Yes - Review of Systems Constitutional: absent: Fevers, Night Sweats Eyes: absent: Vision Changes ENT: absent: Hearing Changes Respiratory: absent: SOB, Cough Cardiovascular: absent: Chest Pain Gastrointestinal: Abdominal Pain (LLQ ) Genitourinary Male: absent: Dysuria, Frequency Musculoskeletal: absent: Arthralgias Skin: absent: Rash, Pruritis Neurological: absent: Headache Endocrine: absent: Diaphoresis Hemo/Lymphatic: absent: Adenopathy Psychiatric: absent: Anxiety Physical Exam Vital Signs Reviewed: Yes Vital Signs Temp Pulse Resp BP Pulse Ox 01/17/17 23:00 82 16 133/73 97 01/17/17 21:42 98 F 85 16 139/75 99 01/17/17 19:52 98.1 F 81 18 135/61 95 Temperature: Afebrile Blood Pressure: Normal Pulse: Regular Respiratory Rate: Normal Medical Decision Making ED Course and Treatment: 01/17/17 22:45 Impression: 56 year old male complaining of LLQ pain for a few hours. Patient admits to drinking alcohol everyday. Differential Diagnosis included but are not limited to: Plan: -- EKG -- Protonix and Toradol -- Reassess and disposition Prior Visits: Notes and results from previous visits were reviewed. Patient was last seen in the emergency department on 08/09/16 for abdominal pain. Patient was admitted to hospitalist care for further evaluation. Progress Notes: - Lab Interpretations Lab Results: 01/17/17 20:15 01/17/17 20:15 Lab Results 01/17/17 20:30: Urine Color Yellow, Urine Appearance Clear, Urine pH 6.0, Ur Specific [place] < 1.005 L, Urine Protein Negative, Urine Glucose (UA) Negative , Urine Ketones Negative, Urine Blood Negative, Urine Nitrate Negative, Urine Bilirubin Negative, Urine Urobilinogen 0.2, Ur Leukocyte Esterase Negative 01/17/17 20:15: CK-MB (CK-2) 5.7 H 01/17/17 20:15: Sodium 135, Potassium 4.9, Chloride 101, Carbon Dioxide 26, Anion Gap 13, BUN 10, Creatinine 0.9, Est GFR ( Amer) > 60, Est GFR (Non- Af Amer) > 60, Random Glucose 92, Calcium 9.1, Total Bilirubin 0.7, AST 77 H, ALT 77 H, Alkaline Phosphatase 55, Lactate Dehydrogenase 625, Total Creatine Kinase 548 H, CK-MB (CK-2) Cancelled, CK-MB (CK-2) % 1.0 L, Troponin I < 0.01, Total Protein 7.6, Albumin 4.2, Globulin 3.5, Albumin/Globulin Ratio 1.2, Amylase 71, Lipase 143 01/17/17 20:15: PT 10.0, INR 0.92 L, APTT 28.2 01/17/17 20:15: WBC 7.1, RBC 4.02, Hgb 13.5 L, Hct 39.6 L, MCV 98.5, MCH 33.6, MCHC 34.1, RDW 13.6, Plt Count 271, MPV 9.5, Gran % 57.5, Lymph % (Auto) 28.3, [place] % (Auto) 10.8 H, Eos % (Auto) 3.0, Baso % (Auto) 0.4, Gran # 4.06, Lymph # 2.0, [place] # 0.8 H, Eos # 0.2, Baso # 0.03 I have reviewed the lab results: Yes - RAD Interpretation Radiology Orders: 01/17/17 19:56 ABD & PELVIS W/O PO OR IV CONT [CT] Stat - Medication Orders Current Medication Orders: Discontinued Medications Ketorolac Tromethamine (Toradol) 30 mg IVP ONCE ONE Stop: 01/17/17 21:32 Last Admin: 01/17/17 22:16 Dose: 30 mg MAR Pain Assessment Document 01/17/17 22:16 LAC (Rec: 01/17/17 22:16 LAC [facility] [id number]) Pain Reassessment Is this a pain reassessment? No IVP Administration Document 01/17/17 22:16 LAC (Rec: 01/17/17 22:16 LAC [facility] [id number]) Charges for Administration # of IVP Administrations 1 Pantoprazole Sodium (Protonix Inj) 40 mg IVP ONCE STA Stop: 01/17/17 21:11 Last Admin: 01/17/17 21:31 Dose: Not Given Non-Admin Reason: Patient Refused IVP Administration Document 01/17/17 21:31 LAC (Rec: 01/17/17 21:31 LAC [facility] [id number]) Charges for Administration # of IVP Administrations 1 - Scribe Statement The provider has reviewed the documentation as recorded by the Scribe Acacia Mondragon Provider Scribe Attestation: All medical record entries made by the Scribe were at my direction and personally dictated by me. I have reviewed the chart and agree that the record accurately reflects my personal performance of the history, physical exam, medical decision making, and the department course for this patient. I have also personally directed, reviewed, and agree with the discharge instructions and disposition. Disposition/Present on Arrival - Present on Arrival History of DVT/PE: No History of Uncontrolled Diabetes: No Urinary Catheter: No History of Decub. Ulcer: No History Surgical Site Infection Following: None - Disposition Diagnosis: Abdominal pain Disposition: HOME/ ROUTINE Patient Problems: Current Active Problems Problem Status Onset Abdominal pain Acute Discharge Instructions (ExitCare): Abdominal Pain (ED) Referrals: Gordo Thornton MD [Primary Care Provider] - Follow up with primary Forms: [employer] (Italian)
[2017-01-17 23:00] VITALS: BP 133/73; PULSE 82; RESP 16; TEMP 98; O2SAT 97
--- NOTE | 2017-01-18 10:05 | CARD ---
APPROVED REPORT EKG Measurement Heart [id number] <Conclusion> Normal sinus rhythm Normal ECG
== END 2017-01-17 23:01 | disposition home or self-care (01) ==
LOC: ED 19:41
DX: R10.12 Left upper quadrant pain (principal); E78.5 Hyperlipidemia, unspecified; I10 Essential (primary) hypertension; I25.10 Atherosclerotic heart disease of native coronary artery without angina pectoris
CPT/HCPCS: 74176; 80053; 81003; 82150; 82550; 82553; 83615; 83690; 84484; 85025; 85610; 85730; 93005; 96374; 99284; J1885

== ENCOUNTER 2017-01-20 23:18 | Emergency (ER) | payer BC ==
[2017-01-20 23:27] VITALS: BMI 25.8
--- NOTE | 2017-01-20 23:55 | ED PDOC ---
Arrival/HPI - General Chief Complaint: Shortness Of Breath Time Seen by Provider: 01/20/17 23:28 Historian: Patient - History of Present Illness Narrative History of Present Illness (Text): 01/20/17 23:55 Anuel Whitt is a 56 year old male, whose past medical history includes CAD with 5 stents, hypertension, hyperlipidemia, gastric ulcer, and alcohol abuse, who presents to the Emergency department complaining of shortness of breath tonight. Patient reports associated wheezing and cough, notes he has a history of tobacco abuse. Patient also complaining of nausea and admits to consuming alcohol tonight. Patient denies any fever, chills, chest pain, vomiting, diarrhea, urinary symptoms, back pain, neck pain, headache, dizziness, or any other complaints. Time/Duration: Other (tonight) Symptom Onset: Gradual Symptom Course: Unchanged Activities at Onset: Light Context: Home Past Medical History - Provider Review Nursing Documentation Reviewed: Yes - Infectious Disease Hx of Infectious Diseases: None - Tetanus Immunization Tetanus Immunization: Up to Date - Reproductive Currently : No - Cardiac Hx Cardiac Disorders: Yes - Pulmonary Hx Respiratory Disorders: No Hx Tuberculosis: No - Neurological Hx Neurological Disorder: No - HEENT Hx HEENT Disorder: No - Renal Hx Renal Disorder: No - Endocrine/Metabolic Hx Endocrine Disorders: No - Hematological/Oncological Hx Blood Transfusions: No Hx Blood Transfusion Reaction: No - Integumentary Hx Dermatological Disorder: No - Musculoskeletal/Rheumatological Hx Musculoskeletal Disorders: No Hx Falls: No - Gastrointestinal Hx Gastrointestinal Disorders: No - Genitourinary/Gynecological Hx Genitourinary Disorders: No - Psychiatric Hx Psychophysiologic Disorder: Yes Hx Anxiety: Yes Hx Depression: Yes Hx Substance Use: Yes - Past Surgical History Past Surgical History: No Previous - Surgical History Hx Cardiac Catheterization: Yes (x 4 stents) Hx Coronary Stent: Yes (x 5) - Anesthesia Hx Anesthesia Reactions: No Hx Malignant Hyperthermia: No - Suicidal Assessment Feels Threatened In Home Enviroment: No Family/Social History - Physician Review Nursing Documentation Reviewed: Yes Family/Social History: Unknown Family HX Smoking Status: Current Some Days Smoker Hx Alcohol Use: Yes Hx Substance Use: Yes Hx Substance Use Treatment: No Allergies/Home Meds Allergies/Adverse Reactions: Allergies No Known Allergies Allergy (Verified 01/20/17 23:34) Home Medications: Home Meds Medication Instructions Recorded Confirmed Aspirin [Ecotrin] 81 mg PO DAILY 04/01/15 08/09/16 Atorvastatin [Lipitor] 40 mg PO DAILY 04/01/15 08/09/16 Clopidogrel [Plavix] 75 mg PO QAM 04/01/15 08/09/16 Review of Systems - Physician Review All systems were reviewed & negative as marked: Yes - Review of Systems Constitutional: Normal. absent: Fevers Eyes: Normal ENT: Normal Respiratory: SOB, Cough, Wheezing Cardiovascular: Normal. absent: Chest Pain Gastrointestinal: Normal. absent: Abdominal Pain, Diarrhea, Nausea, Vomiting Genitourinary Male: Normal. absent: Dysuria, Frequency, Hematuria, Urinary Output Changes Musculoskeletal: Normal. absent: Back Pain, Neck Pain Skin: Normal. absent: Rash Neurological: Normal. absent: Headache, Dizziness Endocrine: Normal Hemo/Lymphatic: Normal Psychiatric: Normal Physical Exam Vital Signs Reviewed: Yes Vital Signs Temp Pulse Resp BP Pulse Ox 01/21/17 03:00 76 16 124/76 99 01/21/17 00:16 98.3 F 84 18 116/75 96 01/20/17 23:30 18 Temperature: Afebrile Blood Pressure: Normal Pulse: Regular Respiratory Rate: Normal Appearance: Positive for: Well-Appearing, Non-Toxic, Comfortable Pain Distress: None Mental Status: Positive for: Alert and Oriented X 3 - Systems Exam Head: Present: Atraumatic, Normocephalic Pupils: Present: PERRL Extroacular Muscles: Present: EOMI Conjunctiva: Present: Normal Mouth: Present: Moist Mucous Membranes Neck: Present: Normal Range of Motion Respiratory/Chest: Present: Wheezes. No: Respiratory Distress, Accessory Muscle Use Cardiovascular: Present: Regular Rate and Rhythm, Normal S1, S2. No: Murmurs Abdomen: Present: Normal Bowel Sounds. No: Tenderness, Distention, Peritoneal Signs Back: Present: Normal Inspection Upper Extremity: Present: Normal Inspection. No: Cyanosis, Edema Lower Extremity: Present: Normal Inspection. No: Edema Neurological: Present: GCS=15, CN II-XII Intact, Speech Normal Skin: Present: Warm, Dry, Normal Color. No: Rashes Psychiatric: Present: Alert, Oriented x 3, Normal Insight, Normal Concentration Medical Decision Making ED Course and Treatment: 01/20/17 23:55 Impression: 56 year old male complaining of shortness of breath, wheezing, cough, and nausea tonight. Plan: -- EKG -- Chest X-ray -- Labs, alcohol level -- Duoneb -- Pepcid -- Zofran -- Reassess and disposition Prior Visits: Notes and results from previous visits were reviewed. On 01/17/2017, pt was seen in the Emergency department for alcohol intoxication and LLQ pain. Pt had CT Abdomen and Pelvis, which was grossly normal, and was discharged home. Progress Notes: Reviewed EKG, NSR at [address]-segment elevations or depressions, no T-wave inversions, normal intervals. 01/21/17 02:51 Chest X-ray reviewed, shows: The cardiomediastinal silhouette is unremarkable. The lungs are clear. No subdiaphragmatic free air or pneumothorax. The trachea is midline. IMPRESSION: No focal infiltrate or effusion. 01/21/17 05:00 On re-evaluation, patient feels better and is in no acute distress. I have discussed the results and plan with the patient, who expresses understanding. Patient in agreement with plan to be discharged home. Patient is stable for discharge. Patient was instructed to follow up with physician or return if symptoms worsen or new concerning symptoms arise. - Lab Interpretations Lab Results: 01/21/17 00:12 01/21/17 00:12 Lab Results 01/21/17 00:12: WBC 9.0 D, RBC 4.01, Hgb 13.4 L, Hct 39.1 L, MCV 97.5, MCH 33.4 , MCHC 34.3, RDW 13.5, Plt Count 237, MPV 9.3 01/21/17 00:12: Alcohol, Quantitative 134 H 01/21/17 00:12: Sodium 137, Potassium 4.3, Chloride 104, Carbon Dioxide 25, Anion Gap 12, BUN 11, Creatinine 0.9, Est GFR ( Amer) > 60, Est GFR (Non- Af Amer) > 60, Random Glucose 89, Calcium 8.9, Total Bilirubin 0.8, AST 95 H D, ALT 85 H, Alkaline Phosphatase 56, Total Protein 7.2, Albumin 4.1, Globulin 3.1 , Albumin/Globulin Ratio 1.3, Lipase 138 I have reviewed the lab results: Yes - RAD Interpretation Radiology Orders: 01/21/17 00:07 CHEST PORTABLE [RAD] Stat Electrical Tester: Radiologist - EKG Interpretation Interpreted by ED Physician: Yes Type: 12 lead EKG - Medication Orders Current Medication Orders: Discontinued Medications Albuterol/Ipratropium (Duoneb 3 Mg/0.5 Mg (3 Ml) Ud) 3 ml IH ONCE STA Stop: 01/21/17 00:08 Last Admin: 01/21/17 00:24 Dose: 3 ml Famotidine (Pepcid) 20 mg IVP STAT STA Stop: 01/21/17 00:10 Last Admin: 01/21/17 00:24 Dose: 20 mg IVP Administration Document 01/21/17 00:24 IT (Rec: 01/21/17 00:24 IT [id number]) Charges for Administration # of IVP Administrations 1 Morphine Sulfate (Morphine) 2 mg IVP STAT STA Stop: 01/21/17 04:38 Last Admin: 01/21/17 04:53 Dose: 2 mg MAR Pain Assessment Document 01/21/17 04:53 SC (Rec: 01/21/17 04:53 SC [id number]) Pain Reassessment Is this a pain reassessment? Yes Sleep Is patient sleeping during reassessment? No Presence of Pain Presence of Pain Yes Pain Scale Used Pain Scale Used Numeric Location Pain Location Body Site Abdomen Description Description Constant Intensity of Pain at present 5 IVP Administration Document 01/21/17 04:53 SC (Rec: 01/21/17 04:53 SC [id number]) Charges for Administration # of IVP Administrations 1 Ondansetron HCl (Zofran Inj) 4 mg IVP ONCE ONE Stop: 01/21/17 00:10 Last Admin: 01/21/17 00:24 Dose: 4 mg IVP Administration Document 01/21/17 00:24 IT (Rec: 01/21/17 00:24 IT [id number]) Charges for Administration # of IVP Administrations 1 - Scribe Statement The provider has reviewed the documentation as recorded by the Devyn Stone Provider Scribe Attestation: All medical record entries made by the Scribe were at my direction and personally dictated by me. I have reviewed the chart and agree that the record accurately reflects my personal performance of the history, physical exam, medical decision making, and the department course for this patient. I have also personally directed, reviewed, and agree with the discharge instructions and disposition. Disposition/Present on Arrival - Present on Arrival Any Indicators Present on Arrival: No History of DVT/PE: No History of Uncontrolled Diabetes: No Urinary Catheter: No History of Decub. Ulcer: No History Surgical Site Infection Following: None - Disposition Have Diagnosis and Disposition been Completed?: Yes Diagnosis: Bronchospasm, Gastritis, Alcohol abuse Disposition: HOME/ ROUTINE Disposition Time: 05:10 Patient Plan: Discharge Patient Problems: Current Active Problems Problem Status Onset Alcohol abuse Acute Bronchospasm Acute Gastritis Acute Condition: GOOD Discharge Instructions (ExitCare): Gastritis (ED), Abuse of Alcohol (ED), Bronchospasm (ED) Additional Instructions: Avoid drinking alcohol/no smoking/medication as prescribed/follow up with your doctor this week Prescriptions: Famotidine [Pepcid] 20 mg PO BID PRN #24 tab PRN Reason: Dyspepsia Albuterol HFA [Ventolin HFA 90 mcg/actuation (8 g)] 2 puff IH [id number] PRN #1 puff PRN Reason: Wheezing Referrals: Harrison Mccall MD [Primary Care Provider] - Follow up with primary Forms: [employer] (Maltese)
[2017-01-21] MEDS ORDERED: Albuterol-Ipratrop 3 mg / 0.5 (3 ml) UD IH STA (00:07)
[2017-01-21 00:19] VITALS: TEMP 98.3
[2017-01-21 00:28] LABS: HEMATOCRIT 39.1 % (42.0-52.0); MEAN CELL VOLUME 97.5 fl (80.0-105.0); MEAN CORPUSCULAR HEMOGLOBIN 33.4 pg (25.0-35.0); MEAN CORPUSCULAR HGB CONC 34.3 g/dl (31.0-37.0); MEAN PLATELET VOLUME 9.3 fl (7.0-11.0); RED CELL DISTRIBUTION WIDTH 13.5 % (11.5-14.5)
[2017-01-21 00:46] LABS: ALB/GLOB RATIO 1.3 (1.1-1.8); ALKALINE PHOSPHATASE 56 U/L (38-126); ALT/SGPT 85 U/L (7-56); AST/SGOT 95 U/L (17-59); BILIRUBIN,TOTAL 0.8 mg/dL (0.2-1.3); BLOOD UREA NITROGEN 11 mg/dL (7-21); CALCIUM 8.9 mg/dL (8.4-10.5); CARBON DIOXIDE 25 mmol/L (21-33); CHLORIDE 104 mmol/L (98-107); GFR AFRICAN-AMERICAN > 60; GLUCOSE,RANDOM 89 mg/dL (70-110); LIPASE 138 U/L (23-300); POTASSIUM 4.3 mmol/L (3.6-5.0); SODIUM 137 mmol/L (132-148); TOTAL PROTEIN 7.2 g/dL (5.8-8.3)
--- NOTE | 2017-01-21 02:39 | RAD ---
EXAM: XR Chest, 1 View CLINICAL HISTORY: 56 years old, male; Signs and symptoms; Cough and shortness of breath; Symptoms not specified TECHNIQUE: Frontal view of the chest. COMPARISON: DX - CHEST PORTABLE 2016-08-09 21:23 FINDINGS: The cardiomediastinal silhouette is unremarkable. The lungs are clear. No subdiaphragmatic free air or pneumothorax. The trachea is midline. IMPRESSION: No focal infiltrate or effusion.
[2017-01-21] MEDS ORDERED: Morphine 2 mg/ml ISec IVP STA (04:37)
[2017-01-21 04:54] VITALS: BP 124/76; PULSE 76; RESP 16; O2SAT 99
--- NOTE | 2017-01-21 10:50 | CARD ---
APPROVED REPORT EKG Measurement Heart [id number] [place] [id number] <Conclusion> Normal sinus rhythm Normal ECG
== END 2017-01-21 05:00 | disposition home or self-care (01) ==
LOC: ED 23:18
DX: J98.01 Acute bronchospasm (principal); K29.70 Gastritis, unspecified, without bleeding; F10.129 Alcohol abuse with intoxication, unspecified; E78.5 Hyperlipidemia, unspecified; I10 Essential (primary) hypertension; I25.10 Atherosclerotic heart disease of native coronary artery without angina pectoris
CPT/HCPCS: 71010; 80053; 83690; 85027; 93005; 96374; 96375; 99284; G0480; J2270; J2405

== ENCOUNTER 2017-02-01 19:20 | Emergency (ER) | payer SELFPAY ==
[2017-02-01 19:21] VITALS: BMI 25.8
[2017-02-01 19:39] VITALS: BP 134/68; PULSE 88; RESP 18; TEMP 98.6; O2SAT 97
== END 2017-02-01 20:01 | disposition left against medical advice (07) ==
LOC: ED 19:20
DX: Z02.89 Encounter for other administrative examinations (principal); R10.9 Unspecified abdominal pain

== ENCOUNTER 2017-03-18 14:03 | Inpatient (IN) | payer BC, MEDICARE, OTHER ==
[2017-03-18] MEDS ORDERED: Sodium Chloride 0.9% 1,000 ML IV STA (14:59)
--- NOTE | 2017-03-18 15:03 | ED PDOC ---
Arrival/HPI - General Chief Complaint: Dizziness/Lightheaded Time Seen by Provider: 03/18/17 14:56 Historian: Patient - History of Present Illness Narrative History of Present Illness (Text): 03/18/17 15:01 A 56 year old male presents to the emergency department complaining of dizziness for 2 weeks. Patient reports he is feeling off-balance and leans towards the left when ambulating, and worsening symptoms since yesterday. Patient mentions having near-syncopal episodes few times. + frontal headaches also noted x 2 weeks; Recently patient has noticed having low blood pressure ( lowest reading taken was 87/53). Notes also experiencing nausea, palpitations, but denies of any vomiting, hearing changes, numbness/tingling to extremities or face, hematuria, bloody stool, urinary output changes, or any other complaints at this time. pt denied slurr speech, no vision changes, no neck pain, no fever/chills/sweats , no cp/sob/palpitations, no abd pain, no urinary/bowel incontience, no trauma/ sick contact, no travel registered nurse icu is here for further eval pt's without other complaints PMD: Dr. Mccall 03/18/17 17:16 pt is right hand dominate Time/Duration: Other (2 weeks) Symptom Onset: Sudden Symptom Course: Unchanged Severity Level: 6 Activities at Onset: Rest Context: Exertion, Home Past Medical History - Provider Review Nursing Documentation Reviewed: Yes - Travel History Have you recently traveled outside [place] w/in the past 3 mons?: No - Past History Past History: No Previous - Infectious Disease Hx of Infectious Diseases: None - Tetanus Immunization Tetanus Immunization: Up to Date - Cardiac Hx Hypertension: Yes Hx Pacemaker: No Other/Comment: cardiac stent - Pulmonary Hx Chronic Obstructive Pulmonary Disease (COPD): Yes - Neurological Hx Seizures: No - HEENT Hx HEENT Disorder: No - Renal Hx Renal Disorder: No - Endocrine/Metabolic Hx Endocrine Disorders: No - Hematological/Oncological Hx Blood Transfusions: No Hx Blood Transfusion Reaction: No - Integumentary Hx Dermatological Disorder: No - Musculoskeletal/Rheumatological Hx Fractures: Yes (RIBS ,STERNUM) - Gastrointestinal Hx Gastrointestinal Disorders: No - Genitourinary/Gynecological Hx Sexually Transmitted Diseases: No - Psychiatric Hx Anxiety: Yes Hx Depression: Yes Hx Substance Use: Yes - Past Surgical History Past Surgical History: No Previous - Surgical History Hx Coronary Stent: Yes (x 5) - Anesthesia Hx Anesthesia Reactions: No Hx Malignant Hyperthermia: No - Suicidal Assessment Feels Threatened In Home Enviroment: No Family/Social History - Physician Review Nursing Documentation Reviewed: Yes Family/Social History: No Known Family HX Smoking Status: Current Some Days Smoker Hx Alcohol Use: Yes Hx Substance Use: Yes Hx Substance Use Treatment: No Allergies/Home Meds Allergies/Adverse Reactions: Allergies No Known Allergies Allergy (Verified 03/18/17 14:12) Home Medications: Home Meds Medication Instructions Recorded Confirmed Aspirin [Ecotrin] 81 mg PO DAILY 04/01/15 03/18/17 Atorvastatin [Lipitor] 40 mg PO DAILY 04/01/15 03/18/17 Clopidogrel [Plavix] 75 mg PO QAM 04/01/15 03/18/17 Pantoprazole Sodium [Protonix] 40 mg PO DAILY 03/18/17 03/18/17 diaZEpam [Valium] 5 mg PO DAILY 03/18/17 03/18/17 Review of Systems - Physician Review All systems were reviewed & negative as marked: Yes - Review of Systems Constitutional: Fatigue Eyes: Normal ENT: absent: Hearing Changes Respiratory: absent: SOB, Cough Cardiovascular: absent: Chest Pain Gastrointestinal: Nausea. absent: Vomiting, Appetite Changes Genitourinary Male: absent: Dysuria, Frequency, Hematuria, Urinary Output Changes Musculoskeletal: Normal Skin: Normal Neurological: Headache (pressure-like to both eyes), Dizziness. absent: Focal Weakness, Speech Changes, Other (no numbness/tingling/weakness to extremities/ face) Endocrine: Normal Hemo/Lymphatic: Normal Psychiatric: Normal Physical Exam Vital Signs Reviewed: Yes Vital Signs Temp Pulse Resp BP Pulse Ox 03/18/17 14:05 98.6 F 77 18 103/56 L 96 Temperature: Afebrile Blood Pressure: Hypotensive Pulse: Regular Respiratory Rate: Normal Appearance: Positive for: Well-Appearing, Uncomfortable, Other (resting in bed, alert/awake, cooperative, NAD) Pain Distress: None Mental Status: Positive for: Alert and Oriented X 3 Finger Stick Blood Glucose: 95 - Systems Exam Head: Present: Atraumatic, Normocephalic Pupils: Present: PERRL, Other (visual field intact b/l, no nystagmus, no photophobia, sclera anicteric) Extroacular Muscles: Present: EOMI Conjunctiva: Present: Normal Ears: Present: Normal Mouth: Present: Moist Mucous Membranes, Normal Teeth Pharnyx: Present: Normal, Other (uvula/tongue are midline, no exudate/lesions, no drooling/stridor) Nose (Internal): Present: Normal Inspection Neck: Present: Normal Range of Motion, Trachea Midline. No: MIDLINE TENDERNESS Respiratory/Chest: Present: Clear to Auscultation, Good Air Exchange. No: Respiratory Distress, Accessory Muscle Use Cardiovascular: Present: Regular Rate and Rhythm, Normal S1, S2. No: Murmurs Abdomen: Present: Normal Bowel Sounds, Other (well nourished male, no focal tenderness, no hudson's sign, no mcburney's point tenderness, no masses/rebound/ guarding/rigidity). No: Tenderness, Distention, Peritoneal Signs Back: Present: Normal Inspection. No: Midline Tenderness Upper Extremity: Present: Normal Inspection, NORMAL PULSES, Neurovascularly Intact, Capillary Refill < 2s. No: Cyanosis, Edema Lower Extremity: Present: Normal Inspection, NORMAL PULSES, Normal ROM, Neurovascularly Intact, Capillary Refill < 2 s. No: Edema Neurological: Present: GCS=15, CN II-XII Intact, Speech Normal, Other (NIH stroke scale ~ 0; GCS = 15, CNII-XII WNL, no facial asymmetries, no slurr speech ; pt with slight ataxia) Skin: Present: Warm, Dry, Normal Color. No: Rashes Psychiatric: Present: Alert, Oriented x 3, Normal Insight, Normal Concentration Medical Decision Making ED Course and Treatment: 03/18/17 15:03 Impression: 56 year old male with dizziness. Plan: ataxia/dizziness, near syncope -- EKG -- Head CT -- Chest X-ray -- Labs -- Urinalysis -- Aspirin -- IV Fluids -- Reassess and disposition Prior Visits: Notes and results from previous visits were reviewed. Patient was last seen in the emergency department on 02/08/2017 for nausea and abdominal pain. Patient was d/c home. Progress Notes: 03/18/17 17:39 pt currently remained comfortable, NAD, + continued lightheadedness with position changes 03/18/17 17:[address] Mccall, states patient has not seen him for ~ 2 years would like hospitalists to admit him i spoke to hospitalists, who would like literacy consultant PCP to admit him or to contact Dr Thornton to admit him 5:45pm - i spoke to Dr Thornton, made aware of pt's medical presentation, agrees with admission pt states he does not want neurology Dr Gee, so i suggests to patient the literacy consultant neurologists Dr Segovia, whom the patient agrees with Spoke to Dr SEGOVIA, whos aware of pt's medical presentations, agrees with ED mgt/ txt and would like CTA of neck/head and inpatient MRI as possible U/S of the carotids, will see patient in the hospital most likely in AM; would like patient on ASA full dose/and plavix, is aware pt already took his at home dose prior to ED arrival Neurology re-exam: NIH stroke scale ~ 0 pt is made aware of his medical results agrees with admission Re-evaluation Time: 17:04 Reassessment Condition: Improving,but remains with symptoms - Critical Care Critical Care Minutes: 45 minutes Critical Care Time: Excluding Proc Time Narrative Critical Care (Text): 03/18/17 18:01 critical care time: 45min, excluding procedure time, excluding time teaching residents/students/mid-level providers; including initial eval/diagnosis, diagnostic interpretation, re-eval, consultations, final disposition - Lab Interpretations Lab Results: 03/18/17 14:25 03/18/17 14:25 Lab Results 03/18/17 16:37: Urine Opiates Screen Negative, Urine Methadone Screen Negative, Ur Barbiturates Screen Negative, Ur Phencyclidine Scrn Negative, Ur Amphetamines Screen Negative, U Benzodiazepines Scrn Positive, U Oth Cocaine Metabols Negative, U Cannabinoids Screen Negative 03/18/17 16:37: Urine Color Yellow, Urine Appearance Clear, Urine pH 7.0, Ur Specific Birney 1.010, Urine Protein Negative, Urine Glucose (UA) Negative, Urine Ketones Negative, Urine Blood Negative, Urine Nitrate Negative, Urine Bilirubin Negative, Urine Urobilinogen 0.2, Ur Leukocyte Esterase Negative 03/18/17 14:25: Thyroxine (T4) 6.3, Total T3 1.11, TSH 3rd Generation 2.09 03/18/17 14:25: Sodium 140, Potassium 4.2, Chloride 103, Carbon Dioxide 26, Anion Gap 14, BUN 15, Creatinine 0.9, Est GFR ( Amer) > 60, Est GFR (Non- Af Amer) > 60, Random Glucose 86, Calcium 9.8, Phosphorus 3.6, Magnesium 2.1, Total Bilirubin 0.6, AST 30, ALT 38, Alkaline Phosphatase 46, Lactate Dehydrogenase 403, Total Creatine Kinase 206, Troponin I < 0.01, Total Protein 7.1, Albumin 4.1, Globulin 3.1, Albumin/Globulin Ratio 1.3 03/18/17 14:25: WBC 7.7, RBC 4.02, Hgb 13.2 L, Hct 40.7 L, MCV 101.2 D, MCH 32.8, MCHC 32.4, RDW 12.4, Plt Count 273, MPV 10.4, Gran % 72.7 H, Lymph % (Auto ) 18.5 L, [place] % (Auto) 6.5 H, Eos % (Auto) 2.0, Baso % (Auto) 0.3, Gran # 5.57 , Lymph # 1.4, [place] # 0.5, Eos # 0.2, Baso # 0.02 I have reviewed the lab results: Yes Interpretation: All labs normal - RAD Interpretation Radiology Orders: 03/18/17 14:57 HEAD W/O CONTRAST [CT] Stat 03/18/17 14:59 CHEST TWO VIEWS (PA/LAT) [RAD] Stat 03/18/17 17:42 CTA HEAD & NECK BUNDLE [CT] Stat FINDINGS: LINES AND TUBES: None. LUNG AND PLEURA: The lungs are well inflated and clear. HEART AND MEDIASTINUM: The heart is not enlarged. The hilar and mediastinal contours are within normal limits. SKELETAL STRUCTURES: The bony structures are within normal limits for the patient's age. VISUALIZED UPPER ABDOMEN: Normal. OTHER FINDINGS: None. IMPRESSION: No active pulmonary disease. This CT exam was performed using one or more of the following dose reduction techniques: Automated exposure control, adjustment of the mA and/or kV according to patient size, and/or use of iterative reconstruction technique. FINDINGS: HEMORRHAGE: No intracranial hemorrhage. 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 There is no mass, mass effect or abnormal extra-axial fluid collection. No acute territorial infarction. VENTRICLES: There is mild age-related global parenchymal volume loss and proportionate enlargement of the ventricles and cortical sulci. CALVARIUM: The skull base and calvarium are normal. PARANASAL SINUSES: There is scattered mucoperiosteal thickening in the ethmoid air cells. The remaining included paranasal sinuses are clear. MASTOID AIR CELLS: Predominantly clear. OTHER FINDINGS: None. IMPRESSION: No acute intracranial abnormality. 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 Mild age-related global parenchymal volume loss. Concrete Floater: Radiologist - EKG Interpretation EKG Interpretation (Text): 03/18/17 17:10 NSR at 70 bpm, normal axis, no ectopy, diffuse low voltage inf leads, no st-t changes, BORDERLINE EKG; unchanged compare with old ekg 01/201703/18/17 17:13 Interpreted by ED Physician: Yes Type: 12 lead EKG Comparison: Similar to previous EKG - Medication Orders Current Medication Orders: Discontinued Medications Aspirin (Aspirin) 325 mg PO STAT STA Stop: 03/18/17 15:00 Last Admin: 03/18/17 16:36 Dose: 325 mg Sodium Chloride (Sodium Chloride 0.9%) 1,000 mls @ 999 mls/hr IV .Q1H1M STA Stop: 03/18/17 15:59 Last Admin: 03/18/17 16:35 Dose: 999 mls/hr eMAR Start Stop Document 03/18/17 16:35 SF (Rec: 03/18/17 16:35 SF [id number]) Intravenous Solution Start Date 03/18/17 Start Time 16:35 End Date 03/18/17 End time 17:36 Total Infusion Time 61 NIHSS Stroke Scale 3 - Date/Time Evaluation Performed Date Performed: 03/18/17 Time Performed: 15:00 When Was NIHSS Performed: Baseline - How Severe is the Stroke Level of Consciousness: 0=Alert LOC to Questions: 0=Both comments correct LOC to commands: 0=Obeys both correctly Best Gaze: 0=Normal Visual: 0=No visual loss Facial: 0=Normal Motor Arm - Left: 0=No drift Motor Arm - Right: 0=No drift Motor Leg - Left: 0=No drift Motor Leg - Right: 0=No drift Limb Ataxia: 0=Absent Sensory: 0=Normal Best Language: 0=No aphasia Dysarthia: 0=Normal articulation Extinction & Inattention (Neglect): 0=Normal, no object Score: 0 - Scribe Statement The provider has reviewed the documentation as recorded by the Devyn Deshpande Provider Scribe Attestation: All medical record entries made by the Scribe were at my direction and personally dictated by me. I have reviewed the chart and agree that the record accurately reflects my personal performance of the history, physical exam, medical decision making, and the department course for this patient. I have also personally directed, reviewed, and agree with the discharge instructions and disposition. Disposition/Present on Arrival - Present on Arrival Any Indicators Present on Arrival: No History of DVT/PE: No History of Uncontrolled Diabetes: No Urinary Catheter: No History of Decub. Ulcer: No History Surgical Site Infection Following: None - Disposition Have Diagnosis and Disposition been Completed?: Yes Diagnosis: Ataxia, Near syncope, Hypotension, Insufficiency of basilar, carotid, and vertebral arteries Disposition: HOSPITALIZED Disposition Time: 17:15 Patient Plan: Admission, Telemetry Patient Problems: Current Active Problems Problem Status Onset Near syncope Acute Ataxia Acute Hypotension Acute Condition: STABLE Referrals: [facility] [place], [Primary Care Provider] - Follow up with primary Forms: LISNR (Thai)
[2017-03-18 15:15] LABS: BASO # 0.02 K/mm3 (0.0-2.0); BASO % 0.3 % (0.0-3.0); EOS # 0.2 (0.0-0.7); GRAN # 5.57 (1.4-6.5); GRAN % 72.7 % (50.0-68.0); HEMOGLOBIN 13.2 g/dL (14.0-18.0); LYMPH # 1.4 (1.2-3.4); LYMPH % 18.5 % (22.0-35.0); MEAN CELL VOLUME 101.2 fl (80.0-105.0); MEAN CORPUSCULAR HEMOGLOBIN 32.8 pg (25.0-35.0); MEAN CORPUSCULAR HGB CONC 32.4 g/dl (31.0-37.0); MEAN PLATELET VOLUME 10.4 fl (7.0-11.0); MONO # 0.5 (0.1-0.6); MONO % 6.5 % (1.0-6.0); RBC 4.02 10^6/uL (3.5-6.1); RED CELL DISTRIBUTION WIDTH 12.4 % (11.5-14.5); WHITE BLOOD COUNT 7.7 10^3/ul (4.5-11.0)
[2017-03-18 15:47] LABS: TROPONIN I < 0.01 ng/mL
[2017-03-18 15:51] LABS: ALB/GLOB RATIO 1.3 (1.1-1.8); ALBUMIN 4.1 g/dL (3.0-4.8); ALT/SGPT 38 U/L (7-56); AST/SGOT 30 U/L (17-59); BLOOD UREA NITROGEN 15 mg/dL (7-21); CALCIUM 9.8 mg/dL (8.4-10.5); GFR AFRICAN-AMERICAN > 60; GFR NON-AFRICAN AMERICAN > 60; MAGNESIUM 2.1 mg/dL (1.7-2.2)
[2017-03-18 15:56] LABS: T4 6.3 ug/dL (5.5-11.0)
--- NOTE | 2017-03-18 16:45 | CT ---
PROCEDURE: CT HEAD WITHOUT CONTRAST. HISTORY: near syncope COMPARISON: MRI brain without contrast from 08/10/2016 TECHNIQUE: Axial computed tomography images were obtained through the head/brain without intravenous contrast. Radiation dose: Total exam DLP = 913.34 mGy-cm. This CT exam was performed using one or more of the following dose reduction techniques: Automated exposure control, adjustment of the mA and/or kV according to patient size, and/or use of iterative reconstruction technique. FINDINGS: HEMORRHAGE: No intracranial hemorrhage. 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 There is no mass, mass effect or abnormal extra-axial fluid collection. No acute territorial infarction. VENTRICLES: There is mild age-related global parenchymal volume loss and proportionate enlargement of the ventricles and cortical sulci. CALVARIUM: The skull base and calvarium are normal. PARANASAL SINUSES: There is scattered mucoperiosteal thickening in the ethmoid air cells. The remaining included paranasal sinuses are clear. MASTOID AIR CELLS: Predominantly clear. OTHER FINDINGS: None. IMPRESSION: No acute intracranial abnormality. 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 Mild age-related global parenchymal volume loss.
[2017-03-18 16:51] LABS: URINE BILIRUBIN NEGATIVE (NEGATIVE); URINE BLOOD NEGATIVE (NEGATIVE); URINE GLUCOSE (UA) NEGATIVE (NEGATIVE); URINE LEUKOCYTE ESTERASE NEGATIVE Leu/uL (NEGATIVE); URINE NITRATE NEGATIVE (NEGATIVE); URINE PROTEIN NEGATIVE mg/dL (<30 mg/dL); URINE UROBILINOGEN 0.2 E.U./dL (<1 E.U./dL)
--- NOTE | 2017-03-18 16:51 | RAD ---
HISTORY: COMPARISON: 01/21/2017. TECHNIQUE: Chest PA and lateral FINDINGS: LINES AND TUBES: None. LUNG AND PLEURA: The lungs are well inflated and clear. HEART AND MEDIASTINUM: The heart is not enlarged. The hilar and mediastinal contours are within normal limits. SKELETAL STRUCTURES: The bony structures are within normal limits for the patient's age. VISUALIZED UPPER ABDOMEN: Normal. OTHER FINDINGS: None. IMPRESSION: No active pulmonary disease.
[2017-03-18 16:52] LABS: URINE APPEARANCE CLEAR (CLEAR); URINE COLOR YELLOW (YELLOW)
[2017-03-18 16:54] LABS: T3 1.11 ng/mL (0.97-1.69)
[2017-03-18 17:09] LABS: BARBITURATES, UR NEGATIVE (NEGATIVE); OPIATES, UR NEGATIVE (NEGATIVE); PHENCYCLIDINE, UR NEGATIVE (NEGATIVE)
[2017-03-18 17:17] LABS: BENZODIAZEPINES, UR POSITIVE (NEGATIVE)
--- NOTE | 2017-03-18 18:41 | CARD ---
APPROVED REPORT EKG Measurement Heart [id number] <Conclusion> Normal sinus rhythm Normal ECG
--- NOTE | 2017-03-18 21:18 | CT ---
EXAM: CT Angiography Head With Intravenous Contrast CLINICAL HISTORY: The patient age is 56 years old and is male; Screening exam; R/O stroke/embolus Facility exam id and description: [facility] head neck bundle TECHNIQUE: Axial computed tomographic angiography images of the head with intravenous contrast using CT angiography protocol. All CT scans at this facility use one or more dose reduction techniques, viz.: automated exposure control; ma/kV adjustment per patient size (including targeted exams where dose is matched to indication; i.e. head); or iterative reconstruction technique. MIP reconstructed images were created and reviewed. Coronal and sagittal reformatted images were created and reviewed. CONTRAST: 136 mL of OMNI 350 administered intravenously. COMPARISON: CT - HEAD W/O CONTRAST 2017-03-18 16:03 FINDINGS: Right internal carotid artery: There is minimal atherosclerosis of the internal carotid arteries, without hemodynamically significant stenosis bilaterally. No aneurysm. Right anterior cerebral artery: No occlusion or significant stenosis. No aneurysm. 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 No occlusion or significant stenosis. Right posterior cerebral artery: No occlusion or significant stenosis. No aneurysm. Right vertebral artery: No occlusion or significant stenosis. Left internal carotid artery: See above. Left anterior cerebral artery: No occlusion or significant stenosis. No aneurysm. Left middle cerebral artery: No occlusion or significant stenosis. No aneurysm. Left posterior cerebral artery: No occlusion or significant stenosis. No aneurysm. Left vertebral artery: A dominant left vertebral artery is identified. No occlusion or significant stenosis. Basilar artery: No significant stenosis. No occlusion. No aneurysm. Brain: For discussion of intracranial findings, refer to the CT head report from the same day. Sinuses: Mucous retention cysts or polyps are visualized within the bilateral maxillary sinuses. There is mucosal thickening of the right frontal sinus and bilateral ethmoid air cells. Other findings: There is increased tortuosity of the vertebrobasilar system. IMPRESSION: 1. 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 A follow-up CTA is recommended. 2. There is minimal atherosclerosis of the internal carotid arteries, without hemodynamically significant stenosis bilaterally. 3. Additional CT findings described above. EXAM: CT Angiography Neck With Intravenous Contrast EXAM DATE/TIME: 03/18/2017 5:42 PM CLINICAL HISTORY: The patient age is 56 years old and is male; Screening exam; R/O stroke/embolus Facility exam id and description: [facility] head neck bundle TECHNIQUE: Axial computed tomographic angiography images of the neck with intravenous contrast using CT angiography protocol. All CT scans at this facility use one or more dose reduction techniques, viz.: automated exposure control; ma/kV adjustment per patient size (including targeted exams where dose is matched to indication; i.e. head); or iterative reconstruction technique. MIP reconstructed images were created and reviewed. Coronal and sagittal reformatted images were created and reviewed. CONTRAST: 136 mL of OMNI 350 administered intravenously. COMPARISON: None available. FINDINGS: VASCULATURE: Right common carotid artery: Artifact limits evaluation of the proximal right common carotid artery. There is atherosclerosis of the distal common carotid artery, without hemodynamically significant stenosis. No occlusion. Right internal carotid artery: There is atherosclerosis of the proximal right internal carotid artery. The degree of stenosis is approximately 45%. No dissection or occlusion. Right external carotid artery: There is atherosclerosis of the proximal right external carotid artery, without hemodynamically significant stenosis. No occlusion. Right vertebral artery: Venous enhancement limits evaluation of the proximal right vertebral artery, without occlusion. Left common carotid artery: No significant stenosis. No occlusion. Atherosclerotic changes are identified in the left carotid bifurcation. Left internal carotid artery: Atherosclerotic changes are visualized of the proximal left internal carotid artery. The degree of stenosis is approximately 35%. Left external carotid artery: No occlusion. Left vertebral artery: A dominant left vertebral artery is visualized. Other vasculature: There is atherosclerosis of the aortic arch. NECK: Bones/joints: Spondylosis is visualized at multiple cervical and upper thoracic levels. Lymph nodes: There is an enlarged right hilar lymph node measuring 2.4 x 1.4 cm. Lung apices: Artifact limits evaluation of the pulmonary arterial branches within the right upper lobe of the lung for embolism. Biapical bullae are visualized. Mild centrilobular emphysematous changes are visualized within the lungs. CAROTID STENOSIS REFERENCE USING NASCET CRITERIA: % ICA stenosis = (1 - narrowest ICA diameter/diameter of distal cervical ICA) x 100. Mild - <50% stenosis. Moderate - 50-69% stenosis. Severe - 70-94% stenosis. Near occlusion - 95-99% stenosis. Occluded - 100% stenosis. IMPRESSION: 1. Atherosclerotic changes are visualized of the proximal left internal carotid artery. The degree of stenosis is approximately 35%. 2. There is atherosclerosis of the proximal right internal carotid artery. The degree of stenosis is approximately 45%. 3. There is an enlarged right hilar lymph node measuring 2.4 x 1.4 cm, nonspecific as to etiology. 4. A dominant left vertebral artery is visualized. 5. Additional findings described above.
[2017-03-18 22:43] LABS: HDL CHOLESTEROL 34 mg/dL (29-60)
[2017-03-18 22:53] LABS: LDL CHOLESTEROL 117 mg/dL (0-129)
[2017-03-19 09:55] LABS: LDL CHOLESTEROL 99 mg/dL (0-129)
[2017-03-19 10:07] LABS: HDL CHOLESTEROL 33 mg/dL (29-60)
--- NOTE | 2017-03-19 15:45 | CARD ---
APPROVED REPORT EXAM: Two-dimensional and M-mode echocardiogram with Doppler and color Doppler. INDICATION CVA/TIA 2D DIMENSIONS Left Atrium (2D)3.2 (1.6-4.0cm)IVSd1.2 (0.7-1.1cm) LVDd3.7 (3.9-5.9cm)PWd1.2 (0.7-1.1cm) LVDs2.7 (2.5-4.0cm)FS (%) 26.4 % LVEF (%)52.5 (>50%) M-Mode DIMENSIONS Aortic Root3.20 (2.2-3.7cm)Aortic Cusp Exc.2.20 (1.5-2.0cm) Aortic Valve AoV Peak [place]16.4cm/Keri Peak GR.3mmHg Mitral Valve MV E Tbbzgvtn62.3cm/sMV A Ogqyuwbt94.1cm/sE/A ratio1.2 TDI E/Lateral E'0.0E/Medial E'0.0 Tricuspid Valve TR Peak [id number] [id number] Peak Gr.17mmHg [id number] LEFT VENTRICLE The left ventricle is normal size. There is normal left ventricular wall thickness. The left ventricular function is normal. The left ventricular ejection fraction is within the normal range. There is normal LV segmental wall motion. Transmitral Doppler flow pattern is Grade I-abnormal relaxation pattern. RIGHT VENTRICLE The right ventricle is normal size. There is normal right ventricular wall thickness. RV Systolic function is mildly reduced. ATRIA The left atrium size is normal. The right atrium size is normal. AORTIC VALVE The aortic valve is normal in structure. No aortic regurgitation is present. There is no aortic valvular stenosis. MITRAL VALVE The mitral valve is normal in structure. There is no mitral valve regurgitation noted. TRICUSPID VALVE The tricuspid valve is normal in structure. There is no tricuspid valve regurgitation noted. PULMONIC VALVE There is mild pulmonic valvular regurgitation. GREAT VESSELS The aortic root is normal in size. The IVC is normal in size and collapses >50% with inspiration. PERICARDIAL EFFUSION There is a trace loculated anterior pericardial effusion. <Conclusion> The left ventricle is normal size. There is normal left ventricular wall thickness. The left ventricular function is normal. The left ventricular ejection fraction is within the normal range. There is normal LV segmental wall motion. Transmitral Doppler flow pattern is Grade I-abnormal relaxation pattern.
--- NOTE | 2017-03-19 16:20 | MRI ---
PROCEDURE: MRI BRAIN WITHOUT CONTRAST HISTORY: dizziness, blurred vision, COMPARISON: Noncontrast head CT from 03/18/2017 TECHNIQUE: Multiplanar, multisequence MR images of the brain were obtained without intravenous contrast enhancement. FINDINGS: HEMORRHAGE: None DWI: No evidence of an acute or early subacute infarction. BRAIN PARENCHYMA: There are minimal chronic microangiopathic changes. There is an old infarction in the left cerebellar hemisphere. There is no mass, mass effect or abnormal extra-axial fluid collection. The midline sagittal structures are normal. VENTRICLES: There is mild age-related global parenchymal volume loss and proportionate enlargement of the ventricles and cortical sulci. CRANIUM: There is normal bone marrow signal pattern. ORBITS: Grossly unremarkable. PARANASAL SINUSES/MASTOIDS: There is moderate mucosal thickening in the paranasal sinuses and small retention cysts/polyps in the maxillary sinus. VASCULAR SYSTEM: There are normal signal voids in the larger intracranial arteries. OTHER FINDINGS: None. IMPRESSION: 1. No acute intracranial abnormality. 2. 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 3. Minimal chronic microangiopathic changes and mild age-related global parenchymal volume loss. 4. Chronic pansinusitis.
--- NOTE | 2017-03-19 16:24 | CP.PCM.CON ---
History of Present Illness - History of Present Illness History of Present Illness: 56 yr old male who came in with new onset dizziness and blurriness of vision , onset 2 weeks ago, who has a history of prior cerebellar stroke, left peduncle. Patient denies headache, aphasia, weakness, dysarthria, nausea, vomiting, blurriness of vision, recent ill contacts or head trauma. He complains of leaning to the left, and almost falling when walking. PMH/PSH FH/SH All; Neuorimaging: MRI brain: normal. CTA: lt 30%, right 40 % occlusion ECHO: normal. ON exam: shows left rhomberg, and mild left sided dysmetria. AAOX3. pupils 3mm-2mm with light. EOMI. CN 2-12 normal. Motor: 5/5 ul and ll bl. Sensory: intact to ft, pin, rhomberg positive left side. Gait: normal, but has some mild ataxia, when he does tandem gait. +2 dtr ul and ll bl. Toes downgoing no clonus. Past Patient History - Infectious Disease Hx of Infectious Diseases: None - Tetanus Immunizations Tetanus Immunization: Up to Date - Past Medical History & Family History Past Medical History?: Yes - Past Social History Smoking Status: Heavy Smoker > 10 Cigarettes Daily - CARDIAC Hx Hypertension: Yes Hx Pacemaker: No Other/Comment: cardiac stent - PULMONARY Hx Chronic Obstructive Pulmonary Disease (COPD): No - NEUROLOGICAL Hx Dizziness: Yes Hx Seizures: No Hx Transient Ischemic Attacks (TIA): Yes - HEENT Hx HEENT Problems: No - RENAL Hx Chronic Kidney Disease: No - ENDOCRINE/METABOLIC Hx Endocrine Disorders: No - HEMATOLOGICAL/ONCOLOGICAL Hx Human Immunodeficiency Virus (HIV): No - INTEGUMENTARY Hx Dermatological Problems: No - MUSCULOSKELETAL/RHEUMATOLOGICAL Hx Falls: No Hx Fractures: Yes (RIBS ,STERNUM) - GASTROINTESTINAL Hx Gastrointestinal Disorders: No Hx Diverticulitis: Yes Hx Gastroesophageal Reflux: Yes - GENITOURINARY/GYNECOLOGICAL Hx Sexually Transmitted Disorders: No - PSYCHIATRIC Hx Anxiety: Yes Hx Depression: Yes Hx Substance Use: No - SURGICAL HISTORY Hx Surgeries: Yes Hx Coronary Stent: Yes (x 5) Other/Comment: lung biopsy - ANESTHESIA Hx Anesthesia Reactions: No Hx Malignant Hyperthermia: No Meds Allergies/Adverse Reactions: Allergies Allergy/AdvReac Type Severity Reaction Status Date / Time No Known Allergies Allergy Verified 01/25/18 14:12 - Medications Medications: Current Medications Aspirin (Aspirin Chewable) 81 mg PO DAILY [facility] Last Admin: 03/19/17 09:07 Dose: 81 mg Clopidogrel Bisulfate (Plavix) 75 mg PO DAILY [facility] Last Admin: 03/19/17 09:07 Dose: 75 mg Tobramycin/Dexamethasone (Tobradex Opht Susp) 0 ml OU QID [facility] Results - Vital Signs Recent Vital Signs: Last Vital Signs Temp 98 F 03/19/17 12:00 Pulse 63 03/19/17 14:00 Resp 21 03/19/17 12:00 BP 114/59 L 03/19/17 12:00 Pulse Ox 98 03/19/17 05:47 - Labs Result Diagrams: 03/18/17 14:25 03/18/17 14:25 Labs: Laboratory Results - last 24 hr 03/18/17 03/18/17 03/19/17 18:48 21:08 09:30 POC Glucose (mg/dL) 96 Triglycerides 92 Cholesterol 147 LDL Cholesterol Direct 99 HDL Cholesterol 33 Alcohol, Quantitative < 10 - Imaging and Cardiology CT scan - head Status: Image reviewed by me, Report reviewed by me MRI - head Status: Image reviewed by me (Normal MRI Brain ) Assessment & Plan - Assessment and Plan (Free Text) Assessment: 56 yr old male with history of old cerebellar stroke, and now with possible Tia. MRI brain is normal, by my reading, and CTA is normal as well. I feel that most of his deficits are baseline, and that he would benefit from stroke workup , anticoagulation with asa and plavix. PLan: 1. Gait training with physical therapy. 2. Start meclizine will follow
[2017-03-19] MEDS: Tobramycin/Dexamethasone (Tobradex) Opth Sol (2.5 ml) OU SCH ×2 (17:20→21:12)
--- NOTE | 2017-03-19 17:31 | US ---
PROCEDURE: Bilateral carotid artery duplex ultrasound HISTORY: Carotid stenosis dizziness PHYSICIAN(S): Greg Mcgregor MD. TECHNIQUE: Duplex sonography and color-flow Doppler were used to evaluate the carotid bifurcations and limited segments of the vertebral arteries bilaterally. FINDINGS: There is mild to moderate smooth heterogeneous echogenic plaque noted at the carotid bifurcations bilaterally. The peak systolic velocity in the proximal right internal carotid artery is 76 cm/sec. This corresponds to a 20 to 39% proximal right ICA stenosis. Normal systolic velocities are noted in the proximal right external carotid artery. There is antegrade flow in the right vertebral artery. The peak systolic velocity in the proximal left internal carotid artery is 75 cm/sec. This corresponds to a 20 to 39% proximal left ICA stenosis. Normal systolic velocities are noted in the proximal left external carotid artery. There is antegrade flow in the left vertebral artery. IMPRESSION: 1. Bilateral 20-39% proximal ICA stenoses. 2. Antegrade flow in both vertebral arteries.
[2017-03-19] MEDS ORDERED: Tobramycin/Dexamethasone (Tobradex) Opth Sol (2.5 ml) OU SCH (18:00)
--- NOTE | 2017-03-19 21:29 | CON ---
DATE: HISTORY OF PRESENT ILLNESS: Mr. Whitt is a -[id number] white male who was admitted to the [facility], rule out CVA, and I was called in on consultation for an eye exam. PHYSICAL EXAMINATION: EYES: His visual acuity is 20/20 in both eyes with correction. Conjunctivae shows mild injection both eyes. Corneal exam is normal. Lens exam is normal. Dilated fundus exam is normal. IMPRESSION AND PLAN: My assessment is that Mr. Whitt has conjunctivitis. I put him on TobraDex one drop both eyes four times a day and I told him to come to see me when he is discharged. Dank Amezquita MD
[2017-03-20 06:06] VITALS: RESP 20; O2SAT 97
[2017-03-20] MEDS: Tobramycin/Dexamethasone (Tobradex) Opth Sol (2.5 ml) OU SCH (10:37)
--- NOTE | 2017-03-20 12:24 | PN ---
SUBJECTIVE: The patient was seen and examined at the bedside on the telemetry luz. No acute events overnight. He remains afebrile and clinically stable however he is found to have persistent orthostatic hypotension. This morning, while his vitals were being taken by the nurse, his blood pressure was 120/78 supine and 82/56 standing. The patient reporting no symptoms associated with his orthostatic hypotension and states that as long as he changes position slowly, he feels okay. OBJECTIVE: VITAL SIGNS: Temperature of 97.7, pulse of 52, blood pressure of 110/ 62, respiratory rate of 20, and oxygen saturation of 97% on room air. GENERAL: No apparent distress. HEENT: PERRL, EOMI. No scleral icterus. No conjunctival pallor. NECK: No JVD and no bruits. LUNGS: Clear to auscultation. CARDIOVASCULAR: Regular rate and rhythm. Normal S1 and S2. ABDOMEN: Normoactive bowel sounds. Soft, nontender, and nondistended. EXTREMITIES: No edema. NEUROLOGIC: Awake, alert and oriented x3. No focal motor deficits. LABORATORY DATA: CBC reviewed and unremarkable. CMP reviewed and unremarkable. Hemoglobin A1c of 5.8. Cholesterol of 147, HDL of 33, LDL of 99, and triglycerides of 92. TSH of 2.09. IMAGING STUDIES: 1. Chest x-ray demonstrates no acute pathology. 2. CT angiogram of the head and neck demonstrates minimal atherosclerosis of the internal carotid arteries approximately 35% to the left and 45% to the right , otherwise no acute pathology. 3. MRI of the brain without contrast demonstrates old infarct to the left cerebral hemisphere with minimal chronic microvascular age-related changes. DIAGNOSTIC STUDIES: 1. Carotid artery ultrasound demonstrates bilateral 20% to 39% proximal ICA stenosis. 2. Transthoracic echocardiogram demonstrates normal LV size and function with no wall motion abnormalities. ASSESSMENT: The patient is a 56-year-old man with past medical history of CAD s/p PCI with ANNETTE stent placement, hyperlipidemia and history of alcohol dependence who presented for evaluation of a 1 week history of worsening gait dysfunction, dysequilibrium and vertigo. PLAN: 1. Orthostatic hypotension. Consider etiology secondary to prior CVA versus medications (the patient takes nitrates). Continue to encourage p.o. intake. We will start midodrine 2.5 mg p.o. b.i.d. and continue to monitor hemodynamics over the following 24 hours. Encourage the patient to increase his salt and fluid intake and change position slowly. 2. Left cerebral infarct (old). Input from Dr. Cardenas of Neurology noted and greatly appreciated. Continue aspirin 81 mg p.o. daily, Plavix 75 mg p.o. daily , and Lipitor 10 mg p.o. daily. 3. CAD status post PCI with stent placement. The patient remains chest pain free. Continue aspirin 81 mg p.o. daily, Lipitor 10 mg p.o. daily and Plavix 75 mg p.o. daily. 4. Viral conjunctivitis. Input from Dr. Amezquita appreciated. Continue TobraDex ophthalmic solution. 5. Hyperlipidemia. Labs demonstrate satisfactory lipid panel, continue Lipitor 10 mg p.o. daily. 6. History of alcohol dependence, the patient reports his last drink was over 2 months ago. Urine toxicology was negative on admission with the exception of benzodiazepines (the patient on Valium for anxiety). 7. Anxiety disorder. The patient is on Valium on an outpatient basis, however given his orthostasis, we will defer benzos at present. 8. Prophylaxis. GI prophylaxis not indicates as the patient is eating. Continue with SCDs for DVT prophylaxis. CODE STATUS: Full code. Willy Thornton MD MTDD
[2017-03-20 12:41] VITALS: BP 120/67; PULSE 86; TEMP 98
--- NOTE | 2017-03-22 09:41 | HP ---
LOCATION: The patient is in room 272, bed 1. CHIEF COMPLAINT: Dizziness and lightheadedness. HISTORY OF PRESENT ILLNESS: This is a 56-year-old white male, who has been complaining of dizziness for 2 weeks. He feels off balance and leans toward the left when ambulating. He denies any urinary symptoms. No history of trauma or travel. FAMILY HISTORY: Noncontributory. SOCIAL HISTORY: Current same-day smoker. He is an alcohol user. He has a history of substance abuse. ALLERGIES: NO KNOWN ALLERGIES. PHYSICAL EXAMINATION: VITAL SIGNS: Temperature of 97, pulse rate of 54, blood pressure 117/67, respiratory rate of 20 with an O2 saturation of 98% on room air. HEENT: PERRLA, EOMI. No icterus is present. NECK: Supple with full range of motion. LUNGS: Clear to auscultation and percussion bilaterally. HEART: Regular rate and rhythm. No murmurs, rubs, or gallops are present. ABDOMEN: Soft. It is nontender. There is no organomegaly. EXTREMITIES: Showed no deformities and no edema. NEUROLOGIC: The patient is alert and oriented x3. Speech is normal. No facial asymmetry. No slurred speech. The patient had a CAT scan of the head done in the emergency room. There is an old infarction in the left cerebellar hemisphere. There is no mass effect. The patient was then admitted to telemetry and will be followed up by Neurology. Lab values; hemoglobin and hematocrit of 13.2 and 40.7. Urine was unremarkable. Toxicology is positive for benzodiazepines. Chemistry was entirely unremarkable. The patient will be seen by a neurologist. He is placed on Plavix, Lipitor, and aspirin. Based on the outcome of MRIs, further treatment will be ordered. Gordo Thornton MD
== END 2017-03-20 14:16 | disposition home or self-care (01) | DRG 312 ==
LOC: ED 14:03 → ERH 17:53 → 2RSO 20:56
PROVIDERS: ADMIT Student in an Organized Health Care Education/Training Program; ATTEND Student in an Organized Health Care Education/Training Program
DX: I95.1 Orthostatic hypotension (principal); E78.5 Hyperlipidemia, unspecified; I10 Essential (primary) hypertension; I25.10 Atherosclerotic heart disease of native coronary artery without angina pectoris; K21.9 Gastro-esophageal reflux disease without esophagitis; Z86.73 Personal history of transient ischemic attack (TIA), and cerebral infarction without residual deficits; H10.9 Unspecified conjunctivitis; Z95.5 Presence of coronary angioplasty implant and graft; F17.210 Nicotine dependence, cigarettes, uncomplicated; R40.2412 Glasgow coma scale score 13-15, at arrival to emergency department; F10.21 Alcohol dependence, in remission; F41.9 Anxiety disorder, unspecified

== ENCOUNTER 2017-04-05 17:06 | Emergency (ER) | payer SELFPAY | END 2017-04-05 18:42 | disposition left against medical advice (07) | LOC: ED 17:06 | DX: Z02.89 Encounter for other administrative examinations (principal); R42 Dizziness and giddiness ==

== ENCOUNTER 2017-04-28 10:44 | Emergency (ER) | payer SELFPAY ==
[2017-04-28 11:04] VITALS: BMI 24.3
[2017-04-28 11:12] VITALS: TEMP 98.6
--- NOTE | 2017-04-28 11:23 | ED PDOC ---
Arrival/HPI - General Chief Complaint: Dizziness/Lightheaded Time Seen by Provider: 04/28/17 10:54 - History of Present Illness Narrative History of Present Illness (Text): 57 y/o M c PMHx cerebellar infarction p/w dizziness x 3 weeks. Patient states these are the same symptoms he was here for during his last visit and states they are no different, just continuing. During his last visit, the patient underwent neurology consultation, MRI, CT angio, had PMD follow up and is yet to follow up with neurology. He states the symptoms are intermittent and he can "feel them coming on" where he gets uncoordinated. Denies fever, chills, chest pain, dyspnea, diarrhea, numbness, slurred speech. Past Medical History - Past History Past History: No Previous - Infectious Disease Hx of Infectious Diseases: None - Tetanus Immunization Tetanus Immunization: Up to Date - Cardiac Hx Cardiac Disorders: Yes (ME, stents x 5) Hx Hypertension: Yes - Pulmonary Hx Chronic Obstructive Pulmonary Disease (COPD): Yes - Neurological Hx Dizziness: Yes Hx Seizures: No Hx Transient Ischemic Attacks (TIA): Yes - HEENT Hx HEENT Disorder: No - Renal Hx Renal Disorder: No - Endocrine/Metabolic Hx Endocrine Disorders: No - Hematological/Oncological Hx Blood Transfusions: No Hx Blood Transfusion Reaction: No - Integumentary Hx Dermatological Disorder: No - Musculoskeletal/Rheumatological Hx Falls: No Hx Fractures: Yes (RIBS ,STERNUM) - Gastrointestinal Hx Gastrointestinal Disorders: No Hx Diverticulitis: Yes Hx Gastroesophageal Reflux: Yes - Genitourinary/Gynecological Hx Sexually Transmitted Diseases: No - Psychiatric Hx Anxiety: Yes Hx Depression: Yes Hx Substance Use: No - Past Surgical History Past Surgical History: No Previous - Surgical History Hx Coronary Stent: Yes (x 5) Other/Comment: lung biopsy - Anesthesia Hx Anesthesia: Yes Hx Anesthesia Reactions: No Hx Malignant Hyperthermia: No - Suicidal Assessment Feels Threatened In Home Enviroment: No Family/Social History Family/Social History: No Known Family HX Smoking Status: Heavy Smoker > 10 Cigarettes Daily Hx Alcohol Use: No (stopped 3 months ago) Hx Substance Use: No Hx Substance Use Treatment: No Allergies/Home Meds Allergies/Adverse Reactions: Allergies No Known Allergies Allergy (Verified 04/28/17 11:09) Home Medications: Home Meds Medication Instructions Recorded Confirmed Aspirin [Ecotrin] 81 mg PO DAILY 04/01/15 04/28/17 Atorvastatin [Lipitor] 40 mg PO DAILY 04/01/15 04/28/17 Clopidogrel [Plavix] 75 mg PO QAM 04/01/15 04/28/17 Pantoprazole Sodium [Protonix] 40 mg PO DAILY 03/18/17 04/28/17 diaZEpam [Valium] 5 mg PO DAILY 03/18/17 04/28/17 Review of Systems - Physician Review All systems were reviewed & negative as marked: Yes - Review of Systems Constitutional: absent: Fevers Respiratory: absent: SOB Physical Exam - Physical Exam Narrative Physical Exam (Text): Gen: NAD Head: AT Eyes: PERRL. EOMI ENT: MMM Neck: Supple Chest: No tenderness CV: Regular rate Lungs: CTA b/l Back: No CVA tenderness Abd: Soft, NT Extremities: No swelling or tenderness Skin: No rash Neuro: Alert. CN II to XII intact. Motor 5/5 x 4. Sensation to light touch intact bilaterally. BESS, FTN, HTS normal. Vital Signs Temp Pulse Resp BP Pulse Ox 04/28/17 11:11 98.6 F 77 18 122/78 98 Medical Decision Making ED Course and Treatment: Patient with no new symptoms since last visit during which he underwent extensive evaluation and has further outpatient follow up pending. Patient offered CT Head to rule out new emergent finding but given risk of radiation, patient decided not to pursue CT. Will send basic labs to assess for patient's feeling of lightheadedness and general weakness to look for new anemia, dehydration, or electrolyte abnormalities. Otherwise, will encourage continued outpatient follow up. EKG NSR 80 bpm, no ST/T wave changes. Labs unremarkable. No acute findings. - Lab Interpretations Lab Results: 04/28/17 11:40 04/28/17 11:40 Lab Results 04/28/17 11:40: Sodium 140, Potassium 4.6, Chloride 106, Carbon Dioxide 25, Anion Gap 14, BUN 16, Creatinine 0.9, Est GFR ( Amer) > 60, Est GFR (Non- Af Amer) > 60, Random Glucose 108, Calcium 9.6, Total Bilirubin 0.3, AST 30, ALT 40, Alkaline Phosphatase 52, Total Protein 6.5, Albumin 3.7, Globulin 2.8, Albumin/Globulin Ratio 1.3 04/28/17 11:40: WBC 8.1, RBC 4.19, Hgb 13.5 L, Hct 40.4 L, MCV 96.4 D, MCH 32.2 , MCHC 33.4, RDW 12.5, Plt Count 246, MPV 10.1, Gran % 73.6 H, Lymph % (Auto) 17.0 L, [place] % (Auto) 7.1 H, Eos % (Auto) 2.1, Baso % (Auto) 0.2, Gran # 5.98, Lymph # (Auto) 1.4, [place] # (Auto) 0.6, Eos # (Auto) 0.2, Baso # (Auto) 0.02 Disposition/Present on Arrival - Present on Arrival Any Indicators Present on Arrival: No History of DVT/PE: No History of Uncontrolled Diabetes: No Urinary Catheter: No History of Decub. Ulcer: No History Surgical Site Infection Following: None - Disposition Have Diagnosis and Disposition been Completed?: Yes Diagnosis: Cerebellar infarction Disposition: HOME/ ROUTINE Disposition Time: 12:13 Patient Plan: Discharge Condition: STABLE Discharge Instructions (ExitCare): Stroke (DC) Referrals: Norberto MENDOZA,Willy Smith MD [Primary Care Provider] - Follow up with primary Forms: [employer] ([place]elsh)
[2017-04-28 11:48] LABS: BASO # 0.02 K/mm3 (0.0-2.0); BASO % 0.2 % (0.0-3.0); EOS # 0.2 (0.0-0.7); EOS % 2.1 % (1.5-5.0); GRAN # 5.98 (1.4-6.5); GRAN % 73.6 % (50.0-68.0); HEMOGLOBIN 13.5 g/dL (14.0-18.0); LYMPH # 1.4 (1.2-3.4); MEAN CELL VOLUME 96.4 fl (80.0-105.0); MEAN CORPUSCULAR HEMOGLOBIN 32.2 pg (25.0-35.0); MEAN CORPUSCULAR HGB CONC 33.4 g/dl (31.0-37.0); MEAN PLATELET VOLUME 10.1 fl (7.0-11.0); MONO # 0.6 (0.1-0.6); MONO % 7.1 % (1.0-6.0); RBC 4.19 10^6/uL (3.5-6.1); RED CELL DISTRIBUTION WIDTH 12.5 % (11.5-14.5); WHITE BLOOD COUNT 8.1 10^3/ul (4.5-11.0)
[2017-04-28 11:58] LABS: ALB/GLOB RATIO 1.3 (1.1-1.8); ALBUMIN 3.7 g/dL (3.0-4.8); ALT/SGPT 40 U/L (7-56); AST/SGOT 30 U/L (17-59); BLOOD UREA NITROGEN 16 mg/dL (7-21); CALCIUM 9.6 mg/dL (8.4-10.5); GFR AFRICAN-AMERICAN > 60; GFR NON-AFRICAN AMERICAN > 60
[2017-04-28 12:50] VITALS: BP 132/80; PULSE 69; RESP 16; O2SAT 99
--- NOTE | 2017-04-28 17:05 | CARD ---
APPROVED REPORT EKG Measurement Heart [id number] <Conclusion> Normal sinus rhythm Normal ECG
== END 2017-04-28 13:03 | disposition home or self-care (01) ==
LOC: ED 10:44
DX: I63.9 Cerebral infarction, unspecified (principal); I10 Essential (primary) hypertension; F17.210 Nicotine dependence, cigarettes, uncomplicated

== ENCOUNTER 2017-07-26 13:33 | Emergency (ER) | payer BC, MEDICARE, OTHER ==
[2017-07-26 13:33] VITALS: BMI 24.3
[2017-07-26 13:49] VITALS: BP 118/81; PULSE 85; RESP 16; TEMP 98.1; O2SAT 99
--- NOTE | 2017-07-26 14:26 | ED PDOC ---
Arrival/HPI - General Chief Complaint: Weakness/Neurological Deficit Time Seen by Provider: 07/26/17 13:36 - History of Present Illness Narrative History of Present Illness (Text): 07/26/17 14:17 Pt is a 57 yo M with PMH of cerebellar infarction, CAD s/p stents, EtOH abuse, and anxiety presents to ED for dizziness and ataxia. Patient states that he had a cerebellar stroke about 8 years ago. His current symptoms began about 4 years ago. Patient states that dizziness is worst in the morning and improves throughout the day. Patient states that his gait deviates to left and often feels like he's falling to the left while seated. Patient states that symptoms worsened today. Patient had an appointment with his neurologist, Dr. Rashid, today. However, patient believed he could not make it to his appointment due to the severity of his symptoms and was instructed to go to the ED by Dr. Rashid' s office. Currently, patient states symptoms are mild. Patient denies CP, SOB, n/v/d, abdominal pain, fever, chills, CABRERA, changes in vision or hearing. PMD: Wesley Lockett) Past Medical History - Provider Review Nursing Documentation Reviewed: Yes - Past History Past History: No Previous - Infectious Disease Hx of Infectious Diseases: None - Tetanus Immunization Tetanus Immunization: Up to Date - Cardiac Hx Cardiac Disorders: Yes (PA, stents x 5) Hx Hypertension: Yes - Pulmonary Hx Respiratory Disorders: Yes Hx Chronic Obstructive Pulmonary Disease (COPD): Yes - Neurological Hx Neurological Disorder: Yes Hx Dizziness: Yes Hx Seizures: No Hx Transient Ischemic Attacks (TIA): Yes - HEENT Hx HEENT Disorder: No - Renal Hx Renal Disorder: No - Endocrine/Metabolic Hx Endocrine Disorders: No - Hematological/Oncological Hx Blood Disorders: No - Integumentary Hx Dermatological Disorder: No - Musculoskeletal/Rheumatological Hx Musculoskeletal Disorders: Yes Hx Fractures: Yes (RIBS ,STERNUM) Hx Unsteady Gait: Yes - Gastrointestinal Hx Gastrointestinal Disorders: Yes Hx Diverticulitis: Yes Hx Gastroesophageal Reflux: Yes - Genitourinary/Gynecological Hx Genitourinary Disorders: No - Psychiatric Hx Psychophysiologic Disorder: Yes Hx Anxiety: Yes Hx Depression: Yes Hx Substance Use: No - Past Surgical History Past Surgical History: No Previous - Surgical History Hx Coronary Stent: Yes (x 5) Other/Comment: lung biopsy - Anesthesia Hx Anesthesia: Yes Hx Anesthesia Reactions: No Hx Malignant Hyperthermia: No - Suicidal Assessment Feels Threatened In Home Enviroment: No Family/Social History Family/Social History: No Known Family HX Smoking Status: Heavy Smoker > 10 Cigarettes Daily Hx Alcohol Use: Yes Frequency of alcohol use: Daily Hx Substance Use: No Hx Substance Use Treatment: No Allergies/Home Meds Allergies/Adverse Reactions: Allergies metronidazole [From Flagyl] Allergy (Verified 07/26/17 13:46) SWELLING Home Medications: Home Meds Medication Instructions Recorded Confirmed Aspirin [Ecotrin] 81 mg PO DAILY 04/01/15 07/26/17 Atorvastatin [Lipitor] 40 mg PO DAILY 04/01/15 07/26/17 Clopidogrel [Plavix] 75 mg PO QAM 04/01/15 07/26/17 diaZEpam [Valium] 5 mg PO DAILY 03/18/17 07/26/17 Review of Systems - Physician Review All systems were reviewed & negative as marked: Yes (12 point ROS reviewed and is negative other than what is stated in HPI.) Physical Exam Vital Signs Reviewed: Yes Temperature: Afebrile Blood Pressure: Normal Pulse: Regular Respiratory Rate: Normal Appearance: Positive for: Well-Appearing Pain Distress: None Mental Status: Positive for: Alert and Oriented X 3 - Systems Exam Head: Present: Atraumatic, Normocephalic Pupils: Present: PERRL Extroacular Muscles: Present: EOMI Conjunctiva: Present: Normal Mouth: Present: Moist Mucous Membranes Neck: Present: Normal Range of Motion Respiratory/Chest: Present: Clear to Auscultation. No: Accessory Muscle Use, Wheezes, Rales, Rhonchi Cardiovascular: Present: Regular Rate and Rhythm, Normal S1, S2. No: Murmurs, Rub, Gallop, Muffled Abdomen: No: Tenderness, Distention, Peritoneal Signs, Guarding, Hernias Back: Present: Normal Inspection Upper Extremity: Present: Normal Inspection. No: Cyanosis, Edema Lower Extremity: Present: Normal Inspection. No: Edema, CALF TENDERNESS Neurological: Present: GCS=15, CN II-XII Intact, Speech Normal, Motor Func Grossly Intact. No: Gait Normal (ataxia, left deviation) Skin: Present: Warm, Dry, Rashes, Normal Color Psychiatric: Present: Alert, Oriented x 3, Normal Insight, Normal Concentration Vital Signs Temp Pulse Resp BP Pulse Ox 07/26/17 14:19 98.1 F 85 16 118/81 99 07/26/17 13:48 98.1 F 85 16 118/81 99 Medical Decision Making ED Course and Treatment: 07/26/17 14:27 57 yo M presents to ED with progressively worsening ataxia and dizziness. Plan: - Workup including labs and imaging were offered to the patient, however patient denied workup at this time. Patient states that he will follow up with Dr. Rashid as scheduled at 3:45 pm today. - Patient will be discharged - Resume home medications - Follow up with Neurologist as scheduled - Follow up with PMD within 1 week (Wesley Rajput) 07/26/17 15:35pt seen with [facility]. h/o of cerebellar infarct, with progessive symptoms of ataxia over 1 year, no new symptoms seen prevously in er for similar. refuses any w/u in er upon my assessment. states will see neuro outpt ( Enrrique Stevens) Disposition/Present on Arrival - Present on Arrival Any Indicators Present on Arrival: No History of DVT/PE: No History of Uncontrolled Diabetes: No Urinary Catheter: No History of Decub. 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 Follow up with Dr. Rashid as scheduled 2. Follow up with PMD within 1 week 3. Take home medications as prescribed 4. Return to ED if symptoms worsen Referrals: Norberto MENDOZA,Willy Smith MD [Primary Care Provider] - Follow up with primary Forms: [employer] ([place])
== END 2017-07-26 14:19 | disposition home or self-care (01) ==
LOC: ED 13:33
DX: I69.293 Ataxia following other nontraumatic intracranial hemorrhage (principal); R42 Dizziness and giddiness; I10 Essential (primary) hypertension; F17.210 Nicotine dependence, cigarettes, uncomplicated

== ENCOUNTER 2017-07-27 15:02 | Emergency (ER) | payer MEDICARE ==
[2017-07-27 15:23] VITALS: RESP 18
--- NOTE | 2017-07-27 15:40 | ED PDOC ---
Arrival/HPI - General Chief Complaint: Weakness/Neurological Deficit Time Seen by Provider: 07/27/17 15:05 Historian: Patient - History of Present Illness Narrative History of Present Illness (Text): 07/27/17 15:40 pt p/w + persistent ataxia/dizziness, worsening over the last few weeks; symptoms started x 1 year ago; pt states he was seen in the ED recently at [facility] [place] as well as yesterday and now today; pt states if he changes positions too quickly, he gets dizzy/lightheaded very easily and lose his balance; pt also describes if he gets up first thing in the morning he gets dizzy/lightheaded as well; pt denied LOC; pt states no other complaints otherwise; pt denied Fever/ chills/sweats, no cp/sob/palpitations, no abd pain, no n/v, no numbness/tingling , no urinary/bowel changes, no incontinence, no slurr speech, no vision changes , no rashes/lesions, no gross bleeding, no fall/trauma/sick contact, no travel; pt denied other complaints pt is here for further eval. PCP: dr thornton Neurology: dr pulido pt is right hand dominate pt admitting to drinking alcohol recently Time/Duration: Other Symptom Onset: Gradual Symptom Course: Worsening Severity Level: Severe Activities at Onset: Other (with movement, changing position) Context: Standing, Walking, Exertion, Home Past Medical History - Provider Review Nursing Documentation Reviewed: Yes - Travel History Have you recently traveled outside [place] w/in the past 3 mons?: No - Past History Past History: No Previous - Infectious Disease Hx of Infectious Diseases: None - Tetanus Immunization Tetanus Immunization: Up to Date - Cardiac Hx Cardiac Disorders: Yes (SD, stents x 5) Hx Hypertension: Yes - Pulmonary Hx Respiratory Disorders: Yes Hx Chronic Obstructive Pulmonary Disease (COPD): Yes - Neurological Hx Neurological Disorder: Yes Hx Dizziness: Yes Hx Seizures: No Hx Transient Ischemic Attacks (TIA): Yes - HEENT Hx HEENT Disorder: No - Renal Hx Renal Disorder: No - Endocrine/Metabolic Hx Endocrine Disorders: No - Hematological/Oncological Hx Blood Disorders: No - Integumentary Hx Dermatological Disorder: No - Musculoskeletal/Rheumatological Hx Musculoskeletal Disorders: Yes Hx Fractures: Yes (RIBS ,STERNUM) Hx Unsteady Gait: Yes - Gastrointestinal Hx Gastrointestinal Disorders: Yes Hx Diverticulitis: Yes Hx Gastroesophageal Reflux: Yes - Genitourinary/Gynecological Hx Genitourinary Disorders: No - Psychiatric Hx Psychophysiologic Disorder: Yes Hx Anxiety: Yes Hx Depression: Yes Hx Substance Use: No - Past Surgical History Past Surgical History: No Previous - Surgical History Hx Coronary Stent: Yes (x 5) Other/Comment: lung biopsy - Anesthesia Hx Anesthesia: Yes Hx Anesthesia Reactions: No Hx Malignant Hyperthermia: No - Suicidal Assessment Feels Threatened In Home Enviroment: No Family/Social History - Physician Review Nursing Documentation Reviewed: Yes Family/Social History: No Known Family HX Smoking Status: Heavy Smoker > 10 Cigarettes Daily Hx Alcohol Use: Yes Hx Substance Use: No Hx Substance Use Treatment: No Allergies/Home Meds Allergies/Adverse Reactions: Allergies metronidazole [From Flagyl] Allergy (Verified 07/26/17 13:46) SWELLING Home Medications: Home Meds Medication Instructions Recorded Confirmed Aspirin [Ecotrin] 81 mg PO DAILY 04/01/15 07/27/17 Atorvastatin [Lipitor] 40 mg PO DAILY 04/01/15 07/27/17 Clopidogrel [Plavix] 75 mg PO QAM 04/01/15 07/27/17 diaZEpam [Valium] 5 mg PO DAILY 03/18/17 07/27/17 Review of Systems - Review of Systems Constitutional: absent: Fatigue, Weight Change Eyes: Normal. absent: Vision Changes ENT: Normal Respiratory: Normal. absent: SOB Cardiovascular: Normal. absent: Chest Pain Gastrointestinal: Normal. absent: Abdominal Pain, Nausea, Vomiting Genitourinary Male: Normal Musculoskeletal: Normal Skin: Normal Neurological: Dizziness, Gait Changes. absent: Headache, Facial Droop, Seizure Endocrine: Normal Hemo/Lymphatic: Normal Psychiatric: Normal Physical Exam - Physical Exam Narrative Physical Exam (Text): 07/27/17 15:45 General: alert/awake, GCS = 15, oriented x 3, resting in bed, uncomfortable, cooperative, interactive; NAD Head: NC/AT EYE: PERRLA, EOMI, sclera anicteric, no nystagmus, no photophobia; visual field intact b/l Facial: WNL Oral: uvula/tongue are midline, no exudate/lesions, no drooling/stridor, no dysphonia; intact dentitions; mild dry oral mucosa NECK: intact ROM, no midline tenderness, no nuchal rigidity, no meningeal signs ; no step off Chest: CTA b/l, no w/r/r; no tachypenia, no accessory muscle use noted Chest Wall: no crepitus, no lesions, no gross deformities, no focal tenderness Cardiac: +S1, +S2, no m/r/r, no tachycardia Abdominal: +BS, soft/nd/nt, well nourished patient; no masses/rebound/guarding/ rigidity; no hudson's sign, no mcburney's point tenderness Extremities: intact ROM, strength 5/5 grossly intact in all limbs, neurovasc intact b/l; + ambulatory; reflex +2/2; noted if patient sudden changes positions during ambulation, pt's gait becomes unsteady, NO fall; slight wide ataxic gait but inconsistent BACK: no step off, no midline tenderness, NO crepitus, no gross deformities noted; Intact ROM SKIN: cap refill < 1 sec, no ulcerations, no petechiae, no rashes; no gross pallor NEURO: CNII-XII WNL, no facial asymmetries, no slurr speech, oriented x 3; F-N is intact b/l; heel to proctor intact b/l NIH stroke scale ~ 0 Psych: normal insight, normal affect; follows command with ease Vital Signs Reviewed: Yes Vital Signs Temp Pulse Resp BP Pulse Ox 07/27/17 19:17 98.3 F 77 18 101/60 100 07/27/17 17:55 71 18 126/64 98 07/27/17 16:16 79 18 128/69 97 07/27/17 15:03 98.2 F 86 18 132/73 97 Temperature: Afebrile Blood Pressure: Normal Pulse: Regular Respiratory Rate: Normal Appearance: Positive for: Well-Appearing, Non-Toxic, Uncomfortable. No: Ill- Appearing, Unkept Pain Distress: None Mental Status: Positive for: Alert and Oriented X 3 - Systems Exam Head: Present: Atraumatic, Normocephalic Medical Decision Making ED Course and Treatment: 07/27/17 15:42 Impression: worsening ataxia/gait disturbance i have consider all the differential diagnosis regarding pt's chief medical complaints/clinical findings, including but are not limited to: ataxia, gait disturbance A/P: ataxia, gait disturbance - labs - iv - ct? - supportive care - observe/reevaluation 07/27/17 15:58 pt remains uncomfortable, stating he is feeling anxious currently, requesting some medication for assistance i spoke to his neurologists, Dr Pulido, made aware, recommend MRI cervical spine and to consult Dr Kenney and likely admit pt to Dr Thornton if pt is to be admitted 530pm pt is currently comfortable but still has ataxic/dizziness symptoms 600pm I spoke to Dr Thornton, whos made aware of pt's concern about his ataxia ( movement, when first awakes), as well as my concern for pt's persistent ataxia ( although chronic), Dr Thornton did not express desire to admit patient, states pt can be seen/treated/worked up as outpatient; states he can see the patient at 930am tomorrow morning; I spoke to pt regarding Dr Bravo's recommendation , and patient is willing to try to see him in his office tomorrow at 930am; pt will be discharged home vital signs WNL (noted a period of low bp, pt with known low bp however) pt is made aware of his medical results pt is encouraged fluid hydration pt is encouraged NO smoking/drinking alcohol pt is encouraged outpt f/u (at 930am with Dr Thornton) pt will be discharged home pt request 2 tabs of ativan to be prescribed, to see if it helps him overnight with his dizziness/ataxia Re-evaluation Time: 15:59 Reassessment Condition: Unchanged - Lab Interpretations Lab Results: 07/27/17 16:00 07/27/17 16:00 Lab Results 07/27/17 16:00: Alcohol, Quantitative 14 H 07/27/17 16:00: WBC 8.1, RBC 4.16, Hgb 13.5 L, Hct 39.3 L, MCV 94.5, MCH 32.5, MCHC 34.4, RDW 14.0, Plt Count 275, MPV 9.3, Gran % 73.9 H, Lymph % (Auto) 19.0 L, [place] % (Auto) 5.8, Eos % (Auto) 1.1 L, Baso % (Auto) 0.2, Gran # 5.99, Lymph # (Auto) 1.5, [place] # (Auto) 0.5, Eos # (Auto) 0.1, Baso # (Auto) 0.02, ESR 5 07/27/17 16:00: Sodium 141, Potassium 4.2, Chloride 103, Carbon Dioxide 26, Anion Gap 16, BUN 12, Creatinine 0.9, Est GFR ( Amer) > 60, Est GFR (Non- Af Amer) > 60, Random Glucose 76, Calcium 9.2, Total Bilirubin 0.4, AST 35, ALT 39, Alkaline Phosphatase 42, Troponin I < 0.01, Total Protein 7.1, Albumin 4.1, Globulin 3.0, Albumin/Globulin Ratio 1.4, Lipase 65, Vitamin B12 Pending, Folate Pending I have reviewed the lab results: Yes Interpretation: Abnormal lab values (+ ETOH) - RAD Interpretation Narrative RAD Interpretations (Text): 07/27/17 19:00 PROCEDURE: MR CERVICAL SPINE WITH AND WITHOUT CONTRAST HISTORY: ataxia, outpt with negative workup; no trauma COMPARISON: None available. TECHNIQUE: Multiecho multiplanar sequences were performed through the cervical spine with ( Omniscan 15 cc) and without the use of intravenous contrast. FINDINGS: There is straightening of the cervical curvature without fracture evident grossly. Minimal spondylolisthesis seen at C5-6 with C5 slightly posterior C6. Marked endplate degenerative signal changes are present at the same level with remaining endplates unremarkable. Mild spondylosis seen at C5-6 as well circumferentially. C1-2 articulation is degenerated but intact. The odontoid process is intact as well. Craniocervical junction appears unremarkable. The cervical spinal cord appears normal in course caliber contour and intrinsic signal. Artifacts are seen only in the sagittal T2 series at the C5-6 level of uncertain origin. Upper thoracic spinal cord down to T4 appears unremarkable as well as the visualized inferior posterior fossa contents. Prevertebral paraspinal soft tissues appear diffusely unremarkable. No suspicious intrathecal or epidural enhancement throughout. C2-3: No disc herniation, spinal canal stenosis or neural foraminal narrowing. C3-4: No disc herniation, spinal canal stenosis or neural foraminal narrowing. C4-5: No disc herniation, spinal canal stenosis or neural foraminal narrowing. C5-C6: No disc herniation. Minimal spondylolisthesis and disc osteophyte complex results in mild central stenosis with lateral osteophytes and facet joint degenerative change causing mild bilateral neural foraminal stenosis. C6-C7: No disc herniation, spinal canal stenosis or neuroforaminal narrowing. C7-T1: No disc herniation, spinal canal stenosis or neural foraminal narrowing. OTHER FINDINGS: None. IMPRESSION: 1. No abnormal intrathecal or epidural enhancement. No severe spinal stenosis. No disc herniation throughout. 2. Limited grade 1 spondylolisthesis C5-6 with limited disc osteophyte complex causes a mild central canal stenosis with separate degenerative changes resulting in limited bilateral neural foraminal stenosis. Mild bilateral degenerative neural foraminal stenoses are also identified at this level. 3. Straightened curvature. Radiology Orders: 07/27/17 15:54 CHEST PORTABLE [RAD] Stat 07/27/17 15:55 SPINAL CANAL CERVICAL W/WO SARAH [MRI] Stat Acetone Button Paster: Radiologist - EKG Interpretation EKG Interpretation (Text): 07/27/17 18:38 NSR at 75 bpm, normal axis, no ectopy, no st-t changes, NORMAL EKG; unchanged compare with old ekg 04/2017 Interpreted by ED Physician: Yes Type: 12 lead EKG Comparison: Similar to previous EKG - Medication Orders Current Medication Orders: Discontinued Medications Sodium Chloride (Sodium Chloride 0.9%) 1,000 mls @ 100 mls/hr IV .Q10H LONA Last Admin: 07/27/17 16:14 Dose: 100 mls/hr eMAR Start Stop Document 07/27/17 16:14 SF (Rec: 07/27/17 16:14 [email or web address]) Intravenous Solution Start Date 07/27/17 Start Time 16:00 End Date 07/27/17 Lorazepam (Ativan) 2 mg IVP ONCE ONE PRN Reason: Protocol Stop: 07/27/17 15:57 Last Admin: 07/27/17 16:14 Dose: 2 mg IVP Administration Document 07/27/17 16:14 SF (Rec: 07/27/17 16:14 [email or web address]) Charges for Administration # of IVP Administrations 1 Metoclopramide HCl (Reglan) 10 mg IVP STAT STA Stop: 07/27/17 15:57 Last Admin: 07/27/17 16:14 Dose: 10 mg IVP Administration Document 07/27/17 16:14 SF (Rec: 07/27/17 16:14 [facility] [email or web address]) Charges for Administration # of IVP Administrations 1 Disposition/Present on Arrival - Present on Arrival Any Indicators Present on Arrival: No History of DVT/PE: No History of Uncontrolled Diabetes: No Urinary Catheter: No History of Decub. Ulcer: No History Surgical Site Infection Following: None - Disposition Have Diagnosis and Disposition been Completed?: Yes Diagnosis: Ataxia, Dizziness Disposition: HOME/ ROUTINE Disposition Time: 19:00 Patient Plan: Discharge Condition: STABLE Discharge Instructions (ExitCare): Apraxia, Dizziness, Nonvertigo, (DC) Print Language: [place] Additional Instructions: Make sure to see your doctor in 1-2 days YOU ARE TO SEE YOUR DOCTOR (Dr Thornton) at 930am tomorrow morning DRINK PLENTY OF FLUIDS DONT SMOKE DONT do drugs DONT drink alcohol take your medications as prescribed RETURN TO ED IF worse pain, cant breath, persistent vomiting, high fever >101- 102 for hours, altered behavior, slurr speech, facial changes, focal weakness ( arm/leg or both), unable to urinate, heavy/persistent bleeding, passing out, chest pain, or other medical emergencies Prescriptions: LORazepam [Ativan] 1 mg PO BID PRN #2 tab PRN Reason: Dizziness Referrals: Gordo Thornton MD [Primary Care Provider] - Follow up with primary Nasim Pulido MD [Staff Provider] - Follow up with primary Forms: [employer] (American)
[2017-07-27 15:52] VITALS: BMI 24.7
[2017-07-27] MEDS ORDERED: Sodium Chloride 0.9% 1,000 ML IV SCH (16:00)
--- NOTE | 2017-07-27 16:36 | RAD ---
HISTORY: Ataxia. COMPARISON: 03/18/2017 FINDINGS: LUNGS: No active pulmonary disease. PLEURA: No significant pleural effusion identified, no pneumothorax apparent. CARDIOVASCULAR: No radiographic findings to suggest acute or significant cardiovascular disease. OSSEOUS STRUCTURES: No significant abnormalities. VISUALIZED UPPER ABDOMEN: Normal. OTHER FINDINGS: None. IMPRESSION: No active disease. No significant interval change compared to the prior examination(s).
[2017-07-27 16:45] LABS: BASO # 0.02 K/mm3 (0.0-2.0); BASO % 0.2 % (0.0-3.0); EOS # 0.1 (0.0-0.7); EOS % 1.1 % (1.5-5.0); GRAN # 5.99 (1.4-6.5); GRAN % 73.9 % (50.0-68.0); HEMOGLOBIN 13.5 g/dL (14.0-18.0); LYMPH # 1.5 (1.2-3.4); MEAN CELL VOLUME 94.5 fl (80.0-105.0); MEAN CORPUSCULAR HEMOGLOBIN 32.5 pg (25.0-35.0); MEAN CORPUSCULAR HGB CONC 34.4 g/dl (31.0-37.0); MEAN PLATELET VOLUME 9.3 fl (7.0-11.0); MONO # 0.5 (0.1-0.6); MONO % 5.8 % (1.0-6.0); RBC 4.16 10^6/uL (3.5-6.1); WHITE BLOOD COUNT 8.1 10^3/ul (4.5-11.0)
[2017-07-27 16:52] LABS: ALB/GLOB RATIO 1.4 (1.1-1.8); ALBUMIN 4.1 g/dL (3.0-4.8); ALT/SGPT 39 U/L (7-56); AST/SGOT 35 U/L (17-59); BLOOD UREA NITROGEN 12 mg/dL (7-21); CALCIUM 9.2 mg/dL (8.4-10.5); GFR AFRICAN-AMERICAN > 60; GFR NON-AFRICAN AMERICAN > 60; LIPASE 65 U/L (23-300)
[2017-07-27 17:04] LABS: TROPONIN I < 0.01 ng/mL
[2017-07-27] MEDS ORDERED: Gadodiamide 287 MG/ML VIAL (15ML) IV ONE (17:33)
--- NOTE | 2017-07-27 18:53 | MRI ---
PROCEDURE: MR CERVICAL SPINE WITH AND WITHOUT CONTRAST HISTORY: ataxia, outpt with negative workup; no trauma COMPARISON: None available. TECHNIQUE: Multiecho multiplanar sequences were performed through the cervical spine with (Omniscan 15 cc) and without the use of intravenous contrast. FINDINGS: There is straightening of the cervical curvature without fracture evident grossly. Minimal spondylolisthesis seen at C5-6 with C5 slightly posterior C6. Marked endplate degenerative signal changes are present at the same level with remaining endplates unremarkable. Mild spondylosis seen at C5-6 as well circumferentially. C1-2 articulation is degenerated but intact. The odontoid process is intact as well. Craniocervical junction appears unremarkable. The cervical spinal cord appears normal in course caliber contour and intrinsic signal. Artifacts are seen only in the sagittal T2 series at the C5-6 level of uncertain origin. Upper thoracic spinal cord down to T4 appears unremarkable as well as the visualized inferior posterior fossa contents. Prevertebral paraspinal soft tissues appear diffusely unremarkable. No suspicious intrathecal or epidural enhancement throughout. C2-3: No disc herniation, spinal canal stenosis or neural foraminal narrowing. C3-4: No disc herniation, spinal canal stenosis or neural foraminal narrowing. C4-5: No disc herniation, spinal canal stenosis or neural foraminal narrowing. C5-C6: No disc herniation. Minimal spondylolisthesis and disc osteophyte complex results in mild central stenosis with lateral osteophytes and facet joint degenerative change causing mild bilateral neural foraminal stenosis. C6-C7: No disc herniation, spinal canal stenosis or neuroforaminal narrowing. C7-T1: No disc herniation, spinal canal stenosis or neural foraminal narrowing. OTHER FINDINGS: None. IMPRESSION: 1. No abnormal intrathecal or epidural enhancement. No severe spinal stenosis. No disc herniation throughout. 2. Limited grade 1 spondylolisthesis C5-6 with limited disc osteophyte complex causes a mild central canal stenosis with separate degenerative changes resulting in limited bilateral neural foraminal stenosis. Mild bilateral degenerative neural foraminal stenoses are also identified at this level. 3. Straightened curvature.
[2017-07-27 19:17] VITALS: BP 101/60; PULSE 77; TEMP 98.3; O2SAT 100
[2017-07-27 22:15] LABS: FOLATE 15.2 ng/mL
--- NOTE | 2017-07-28 10:08 | CARD ---
APPROVED REPORT EKG Measurement Heart [id number] <Conclusion> Normal sinus rhythm Normal ECG
== END 2017-07-27 19:17 | disposition home or self-care (01) ==
LOC: ED 15:02
DX: R27.0 Ataxia, unspecified (principal); I25.2 Old myocardial infarction; I10 Essential (primary) hypertension; F17.210 Nicotine dependence, cigarettes, uncomplicated; Z86.73 Personal history of transient ischemic attack (TIA), and cerebral infarction without residual deficits; Z95.5 Presence of coronary angioplasty implant and graft
CPT/HCPCS: 71045; 72156; 80053; 82607; 82746; 83690; 84484; 85025; 85651; 86592; 93005; 96374; 96375; 99285; A9579; G0480; J2060; J2765; J7030

== ENCOUNTER 2017-09-23 15:07 | Observation (INO) | payer BC, MEDICARE ==
[2017-09-23 15:24] VITALS: BMI 24.3
--- NOTE | 2017-09-23 15:44 | RAD ---
Date of service: 09/23/2017 HISTORY: chest pain COMPARISON: 07/27/2017 FINDINGS: LUNGS: No active pulmonary disease. PLEURA: No significant pleural effusion identified, no pneumothorax apparent. CARDIOVASCULAR: Normal. OSSEOUS STRUCTURES: No significant abnormalities. VISUALIZED UPPER ABDOMEN: Normal. OTHER FINDINGS: None. IMPRESSION: No active disease.
--- NOTE | 2017-09-23 15:49 | ED PDOC ---
Arrival/HPI - General Chief Complaint: Chest Pain Time Seen by Provider: 09/23/17 15:11 Historian: Patient, EMS - History of Present Illness Narrative History of Present Illness (Text): 09/23/17 15:47 Patient is a 57 yo male past medical history of cad with stents, presents to the emergency department stating that he developed substernal chest pain radiating to his jaw one and a half hours prior to arrival. Patient states he "wasn't doing anything" and just sitting when this occurred. Denies headache. Denies back pain. Denies abdominal pain or leg pain. States chest pain resolved and now he has intermittent jaw pain. Denies difficulty swallowing. States that he "hasn't been feeling well" when he woke up today but also "for the past few days". He did not have any pain until prior to arrival. Denies new dizziness or lightheadedness. Denies unsteadiness. Time/Duration: Prior to Arrival Symptom Onset: Sudden Past Medical History - Past History Past History: No Previous - Infectious Disease Hx of Infectious Diseases: None - Tetanus Immunization Tetanus Immunization: Up to Date - Cardiac Hx Cardiac Disorders: Yes (AK, stents x 5) Hx Hypertension: Yes - Pulmonary Hx Respiratory Disorders: Yes Hx Chronic Obstructive Pulmonary Disease (COPD): Yes - Neurological Hx Neurological Disorder: Yes Hx Dizziness: Yes Hx Seizures: No Hx Transient Ischemic Attacks (TIA): Yes - HEENT Hx HEENT Disorder: No - Renal Hx Renal Disorder: No - Endocrine/Metabolic Hx Endocrine Disorders: No - Hematological/Oncological Hx Blood Disorders: No - Integumentary Hx Dermatological Disorder: No - Musculoskeletal/Rheumatological Hx Musculoskeletal Disorders: Yes Hx Fractures: Yes (RIBS ,STERNUM) Hx Unsteady Gait: Yes - Gastrointestinal Hx Gastrointestinal Disorders: Yes Hx Diverticulitis: Yes Hx Gastroesophageal Reflux: Yes - Genitourinary/Gynecological Hx Genitourinary Disorders: No - Psychiatric Hx Psychophysiologic Disorder: Yes Hx Anxiety: Yes Hx Depression: Yes Hx Substance Use: No - Past Surgical History Past Surgical History: No Previous - Surgical History Hx Coronary Stent: Yes (x 5) Other/Comment: lung biopsy - Anesthesia Hx Anesthesia: Yes Hx Anesthesia Reactions: No Hx Malignant Hyperthermia: No - Suicidal Assessment Feels Threatened In Home Enviroment: No Family/Social History Family/Social History: Unknown Family HX Smoking Status: Heavy Smoker > 10 Cigarettes Daily Hx Alcohol Use: Yes Hx Substance Use: No Hx Substance Use Treatment: No Allergies/Home Meds Allergies/Adverse Reactions: Allergies metronidazole [From Flagyl] Allergy (Verified 09/23/17 15:31) SWELLING Home Medications: Home Meds Medication Instructions Recorded Confirmed Aspirin [Ecotrin] 81 mg PO DAILY 04/01/15 09/24/17 Atorvastatin [Lipitor] 40 mg PO DAILY 04/01/15 09/24/17 Clopidogrel [Plavix] 75 mg PO QAM 04/01/15 09/24/17 diaZEpam [Valium] 5 mg PO DAILY 03/18/17 09/23/17 Review of Systems - Review of Systems Constitutional: Fatigue. absent: Fevers Eyes: absent: Vision Changes ENT: Other (jaw pain). absent: Hearing Changes, Sore Throat Respiratory: absent: SOB, Cough Cardiovascular: Chest Pain, WALSH. absent: Palpitations, Edema, Calf Pain, Orthopnea Gastrointestinal: absent: Abdominal Pain, Nausea, Vomiting, Appetite Changes Genitourinary Male: absent: Dysuria Musculoskeletal: absent: Back Pain Skin: absent: Rash Neurological: Dizziness. absent: Headache, Focal Weakness, Gait Changes Endocrine: absent: Polyuria Psychiatric: absent: Suicidal Ideation Physical Exam Vital Signs Reviewed: Yes Vital Signs Temp Pulse Resp BP Pulse Ox 09/23/17 18:40 98.9 F 63 18 125/68 98 09/23/17 17:12 57 L 16 130/71 99 09/23/17 15:08 98 F 71 18 145/75 100 Temperature: Afebrile Blood Pressure: Hypertensive Appearance: Positive for: Non-Toxic Pain Distress: Mild Mental Status: Positive for: Alert and Oriented X 3 - Systems Exam Head: Present: Atraumatic Pupils: Present: PERRL Mouth: Present: Moist Mucous Membranes Pharnyx: No: ERYTHEMA, Str[place] Neck: Present: Normal Range of Motion. No: Meningeal Signs Respiratory/Chest: Present: Clear to Auscultation. No: Respiratory Distress, Tender to Palpation Cardiovascular: Present: Regular Rate and Rhythm Abdomen: No: Tenderness Back: No: CVA Tenderness Upper Extremity: No: Cyanosis Lower Extremity: No: Edema, CALF TENDERNESS Neurological: Present: Other (reports unsteadiness that is chronic for "years" on exam no obvious dysmetria, no slurred speech, no acute focal weakness) Skin: Present: Warm, Other (smells of cigarette smoke) Psychiatric: Present: Alert, Normal Concentration Medical Decision Making ED Course and Treatment: 09/23/17 17:13 Patient is a 57 yo male with past medical hx of tobacco use, alcohol use, cad with stents presented with sudden onset of chest pain radiating to jaw. Initial EKG obtained unremarkable and patient's chest pain has now resolved. He has equal blood pressure and pulse in both upper extremities. Patient reports dizziness but states that this is chronic for "years" and not worse than typical today. Patient took aspirin prior to arrival. He has no ACUTE neuro deficits noted. Prior hx of cerebellar CVA noted, but patient denies acute dizziness. Blood pressure improved after period of observation. With re-evaluation chest pain resolved. Patient is currently comfortable, pain free. Given significant past cardiac history, continued smoking, I reviewed case with his PMD Dr. Belle Thonrton as well as Dr. Mckinnon, his current practical nurse clinical coordinator. Patient will be admitted for monitoring of symptoms, serial exams, cardiac evaluation. He has been advised of treatment plan. He has no chest pain currently. - Lab Interpretations Lab Results: 09/23/17 15:45 09/23/17 15:45 Lab Results 09/23/17 15:45: Alcohol, Quantitative < 10 09/23/17 15:45: Sodium 138, Potassium 3.5 L, Chloride 107, Carbon Dioxide 22, Anion Gap 13, BUN 15, Creatinine 0.9, Est GFR ( Amer) > 60, Est GFR (Non- Af Amer) > 60, Random Glucose 99, Calcium 8.7, Total Bilirubin 0.7, AST 40, ALT 46, Alkaline Phosphatase 45, Lactate Dehydrogenase 396, Total Creatine Kinase 224, Troponin I < 0.01, NT-Pro-B Natriuret Pep 120, Total Protein 6.7, Albumin 3.9, Globulin 2.9, Albumin/Globulin Ratio 1.4 09/23/17 15:45: Urine Color yellow, Urine Appearance Clear, Urine pH 7.5, Ur Specific [place] 1.010, Urine Protein Negative, Urine Glucose (UA) Negative, Urine Ketones Negative, Urine Blood Negative, Urine Nitrate Negative, Urine Bilirubin Negative, Urine Urobilinogen 0.2, Ur Leukocyte Esterase Negative 09/23/17 15:45: PT 10.4, INR 0.91, APTT 28.5 09/23/17 15:45: WBC 7.5, RBC 3.85, Hgb 12.3 L, Hct 36.4 L, MCV 94.5, MCH 31.9, MCHC 33.8, RDW 13.6, Plt Count 235, MPV 9.7, Gran % 72.2 H, Lymph % (Auto) 18.7 L, [place] % (Auto) 5.8, Eos % (Auto) 2.9, Baso % (Auto) 0.4, Gran # 5.44, Lymph # (Auto) 1.4, [place] # (Auto) 0.4, Eos # (Auto) 0.2, Baso # (Auto) 0.03 - RAD Interpretation Radiology Orders: 09/23/17 15:26 CHEST PORTABLE [RAD] Stat Recreational Vehicle Repairer: Radiologist - EKG Interpretation EKG Interpretation (Text): 09/23/17 17:12 EKG at 15:14 normal sinus rhythm rate of [address] elevations Interpreted by ED Physician: Yes Type: 12 lead EKG Comparison: Com.w/previous EKG - Medication Orders Current Medication Orders: Discontinued Medications Aspirin (Ecotrin) 81 mg PO DAILY [facility] Last Admin: 09/24/17 10:23 Dose: 81 mg Atorvastatin Calcium (Lipitor) 40 mg PO DAILY [facility] Last Admin: 09/24/17 10:23 Dose: 40 mg Clopidogrel Bisulfate (Plavix) 75 mg PO STAT STA Stop: 09/23/17 15:29 Last Admin: 09/23/17 15:49 Dose: 75 mg Clopidogrel Bisulfate (Plavix) 75 mg PO DAILY [facility] Last Admin: 09/24/17 10:23 Dose: 75 mg Pneumococcal Polyvalent Vaccine (Pneumovax 23 Vaccine) 0.5 ml IM .ONCE ONE Stop: 09/23/17 22:07 Last Admin: 09/24/17 01:36 Dose: Immunization Registry Document 09/24/17 01:36 ST (Rec: 09/24/17 01:37 [facility] [id number]) Immunization Registry Consent Date 07/27/17 Potassium Chloride (K-Dur 20 Meq Er Tab) 20 meq PO STAT STA Stop: 09/23/17 16:38 Last Admin: 09/23/17 17:06 Dose: 20 meq Disposition/Present on Arrival - Present on Arrival Any Indicators Present on Arrival: No History of DVT/PE: No History of Uncontrolled Diabetes: No Urinary Catheter: No History of Decub. Ulcer: No History Surgical Site Infection Following: None - Disposition Have Diagnosis and Disposition been Completed?: Yes Diagnosis: Chest pain Disposition: HOSPITALIZED Disposition Time: 16:35 Patient Plan: Admission, Telemetry Condition: SERIOUS
[2017-09-23 16:11] LABS: PH,URINE 7.5 (4.7-8.0); URINE BILIRUBIN NEGATIVE (NEGATIVE); URINE BLOOD NEGATIVE (NEGATIVE); URINE GLUCOSE (UA) NEGATIVE (NEGATIVE); URINE LEUKOCYTE ESTERASE NEGATIVE Leu/uL (NEGATIVE); URINE UROBILINOGEN 0.2 E.U./dL (<1 E.U./dL)
[2017-09-23 16:12] LABS: BASO # 0.03 K/mm3 (0.0-2.0); BASO % 0.4 % (0.0-3.0); EOS # 0.2 (0.0-0.7); EOS % 2.9 % (1.5-5.0); GRAN # 5.44 (1.4-6.5); GRAN % 72.2 % (50.0-68.0); HEMOGLOBIN 12.3 g/dL (14.0-18.0); LYMPH # 1.4 (1.2-3.4); LYMPH % 18.7 % (22.0-35.0); MEAN CELL VOLUME 94.5 fl (80.0-105.0); MEAN CORPUSCULAR HEMOGLOBIN 31.9 pg (25.0-35.0); MEAN CORPUSCULAR HGB CONC 33.8 g/dl (31.0-37.0); MEAN PLATELET VOLUME 9.7 fl (7.0-11.0); MONO # 0.4 (0.1-0.6); MONO % 5.8 % (1.0-6.0); RBC 3.85 10^6/uL (3.5-6.1); RED CELL DISTRIBUTION WIDTH 13.6 % (11.5-14.5); URINE APPEARANCE CLEAR (CLEAR); URINE PROTEIN NEGATIVE mg/dL (<30 mg/dL); WHITE BLOOD COUNT 7.5 10^3/ul (4.5-11.0)
[2017-09-23 16:15] LABS: INR 0.91; PROTHROMBIN TIME 10.4 SECONDS (9.4-12.5)
[2017-09-23 16:18] LABS: PARTIAL THROMBOPLASTIN TIME 28.5 Seconds (25.1-36.5)
[2017-09-23 16:21] LABS: ALB/GLOB RATIO 1.4 (1.1-1.8); ALBUMIN 3.9 g/dL (3.0-4.8); ALT/SGPT 46 U/L (7-56); AST/SGOT 40 U/L (17-59); BLOOD UREA NITROGEN 15 mg/dL (7-21); CALCIUM 8.7 mg/dL (8.4-10.5); GFR AFRICAN-AMERICAN > 60; GFR NON-AFRICAN AMERICAN > 60
[2017-09-23 16:33] LABS: B-TYPE NATRIURETIC PEPTIDE 120 pg/mL (0-450); TROPONIN I < 0.01 ng/mL
[2017-09-23] MEDS ORDERED: Potassium Chloride 20 mEq ER Tab PO STA (16:37)
--- NOTE | 2017-09-23 17:40 | CARD ---
APPROVED REPORT Date of service: 09/23/2017 EKG Measurement Heart [id number] <Conclusion> Normal sinus rhythm Normal ECG
--- NOTE | 2017-09-23 20:40 | HP ---
HISTORY OF PRESENT ILLNESS: The patient is a 57 year old man with a past medical history of CAD s/p PCI with stent placement who presented for evaluation of a sudden onset of substernal chest pain radiating to his jaw. The patient states that he was in his usual state of health when he developed a sudden onset of substernal chest pain which began at rest. He reports associated palpitations with his symptoms. The patient took a sublingual nitroglycerin tab with significant improvement. Given his cardiac risk factors he was admitted to cycle cardiac enzymes and for continued management of unstable angina. PAST MEDICAL HISTORY: As per HPI, also hypertension. PAST SURGICAL HISTORY: As per HPI. ALLERGIES: Metronidazole. MEDICATIONS: Aspirin 81 mg p.o. daily, Plavix 75 mg p.o. daily, Lipitor 40 mg p.o. daily and Valium 5 mg p.o. daily. FAMILY HISTORY: Noncontributory. SOCIAL HISTORY: The patient reports an active 30 pack-year smoking history. He also reports daily alcohol use and denies illicit drug abuse. REVIEW OF SYSTEMS: A 12-point review of systems is negative except as per HPI. PHYSICAL EXAMINATION: VITAL SIGNS: Temperature 98, pulse 71, blood pressure 145/75, respiratory rate 18, and oxygen saturation 100% on room air. GENERAL: No apparent distress. HEENT: PERRL, EOMI. No scleral icterus. No conjunctival pallor. NECK: No JVD. No bruits. LUNGS: Clear to auscultation. CARDIOVASCULAR: Regular rate and rhythm. Normal S1 and S2. ABDOMEN: Normoactive bowel sounds. Soft, nontender, and nondistended. EXTREMITIES: No edema. NEUROLOGIC: Awake, alert, and oriented x 3. No focal motor deficits. LABORATORY DATA: CBC reviewed and unremarkable. CMP reviewed and unremarkable with the exception of potassium of 3.5. Troponin less than 0.01. ASSESSMENT: The patient is a 57 year old man with a past medical history of CAD s/p stent and HTN who presented for evaluation of a 1 day history of sudden onset of substernal chest pressure with radiation to his jaw and was admitted for management of unstable angina. PLAN: 1. Unstable angina. Initial EKG and troponin are unremarkable. The patient will be admitted to the telemetry luz to cycle cardiac enzymes. Dr. Mckinnon of Cardiology has been consulted for further evaluation and recommendations. 2. CAD s/p stent. Resume aspirin 81 mg p.o. daily, Plavix 75 mg p.o. daily and Lipitor 40 mg p.o. daily. 3. Hypertension. Blood pressure remains stable off antihypertensives. We will continue to monitor hemodynamics and add antihypertensives as needed. 4. History of alcohol dependence. We will continue to monitor for withdrawal symptoms and initiated Librium protocol as needed. 5.. Prophylaxis. GI prophylaxis is not indicated as the patient is eating. DVT prophylaxis is not indicated as the patient is ambulatory. CODE STATUS: Full code. Willy Thornton MD MTDD
[2017-09-23] MEDS ORDERED: Pneumococcal 23-Valent Vaccine IM ONE (22:06)
[2017-09-24 06:28] VITALS: PULSE 69; TEMP 97.7
[2017-09-24 06:28] LABS: HEMOGLOBIN 12.9 g/dL (14.0-18.0); MEAN CELL VOLUME 94.6 fl (80.0-105.0); MEAN CORPUSCULAR HEMOGLOBIN 31.5 pg (25.0-35.0); MEAN CORPUSCULAR HGB CONC 33.2 g/dl (31.0-37.0); MEAN PLATELET VOLUME 9.9 fl (7.0-11.0); RBC 4.1 10^6/uL (3.5-6.1); WHITE BLOOD COUNT 7.6 10^3/ul (4.5-11.0)
[2017-09-24 06:49] LABS: TROPONIN I < 0.01 ng/mL
[2017-09-24 07:05] LABS: BLOOD UREA NITROGEN 20 mg/dL (7-21); GFR AFRICAN-AMERICAN > 60; GFR NON-AFRICAN AMERICAN 57
[2017-09-24 10:37] VITALS: BP 128/64; RESP 18; O2SAT 98
--- NOTE | 2017-09-24 13:37 | CON ---
Copied To: Greg Mckinnon MD Attending MD: Greg Mckinnon MD DATE: 09/24/2017 CARDIOLOGY CONSULTATION HISTORY: The patient is a 57-year-old male, who presents with epigastric discomfort. He has a long history of recurrent dizziness, in which he was in coming for a workup. He has had stress tests done in the past, which were unremarkable. He had a stress [facility]iol[facility] set up for [facility] next week, which was necessitated by lack of out of network benefits for [facility]. He is admitted for these symptoms. Past medical history includes hyperlipidemia and hypertension. Currently, the patient is ambulating without dizziness. His previous workup included an echocardiogram that was done in February of this year, which revealed normal LV function with an ejection fraction of 52%. There was no pulmonary hypertension noted. REVIEW OF SYSTEMS: Free of angina. Free of dyspnea. PHYSICAL EXAMINATION: VITAL SIGNS: Blood pressure is 108/66, the heart rate is in the 70s. NECK: Negative JVD. LUNGS: Without rales. HEART: Reveals S1, S2. EXTREMITIES: Without edema. LABORATORY DATA: EKG is within normal limits. Troponins are negative x3. BUN and creatinine are unremarkable. Hemoglobin is 12.9. IMPRESSION: 1. Atypical chest pain, which is now resolved. 2. No evidence for acute coronary syndrome. 3. History of recurrent dizziness. 4. History of hypercholesterolemia. PLAN: Given these findings, the patient is ambulating without symptoms. The patient can be discharged. We will arrange for an outpatient stress test. We will have finance come and talk to the patient because the patient demand that a stress test be done here despite being out of network and it will not be covered by insurance. Greg Mckinnon MD
--- NOTE | 2017-09-27 09:28 | DS ---
Copied To: Gordo Thornton MD Attending MD: Gordo Thornton MD HISTORY OF PRESENT ILLNESS: Patient is a 57-year-old white male with a previous history of coronary artery disease and hypertension who presented to the Emergency Room with a chief complaint of chest pain while at rest. Given the patient's prior history, the patient was admitted to rule out DE. PHYSICAL EXAMINATION: VITAL SIGNS: Temperature of 97.7, pulse rate of 69, blood pressure of 108/66, O2 saturation of 97% on room air. HEENT: Negative. NECK: Supple with full range of motion. LUNGS: Clear bilaterally. HEART: Regular rate and rhythm. ABDOMEN: Benign. EXTREMITIES: Show no deformities or edema. NEUROLOGIC: The patient is intact. LABORATORY DATA: CBC with the exception of a hemoglobin and hematocrit of 12.9 and 38, is normal. Chemistry is entirely within normal limits. Troponins are negative x3. EKGs showed no acute changes x3. Patient was seen this morning by Dr. Greg Mckinnon who determined that the patient can go home and have a stress test on an outpatient basis. DISCHARGE DIAGNOSES: 1. Atypical chest pain, which is now resolved. 2. No evidence of acute coronary artery syndrome. 3. History of recurrent dizziness. 4. History of hyperlipidemia. The patient will be followed on an outpatient basis in the office as well as by Dr. Greg Mckinnon and will have an outpatient stress test. Gordo Thornton MD
== END 2017-09-24 11:21 | disposition home or self-care (01) ==
LOC: ED 15:07 → INTOOBSV 17:03 → ERH 17:03 → 2RSO 20:38
PROVIDERS: ADMIT Student in an Organized Health Care Education/Training Program; ATTEND Student in an Organized Health Care Education/Training Program
DX: R07.89 Other chest pain (principal); R00.2 Palpitations; I25.10 Atherosclerotic heart disease of native coronary artery without angina pectoris; I10 Essential (primary) hypertension; E78.00 Pure hypercholesterolemia, unspecified; Z86.73 Personal history of transient ischemic attack (TIA), and cerebral infarction without residual deficits; Z95.5 Presence of coronary angioplasty implant and graft; Z79.02 Long term (current) use of antithrombotics/antiplatelets; Z79.82 Long term (current) use of aspirin; Z87.891 Personal history of nicotine dependence
CPT/HCPCS: 36415; 71045; 80048; 80053; 81003; 82550; 83615; 83880; 84484; 85025; 85027; 85610; 85730; 93005; 99285; G0378; G0480

== ENCOUNTER 2017-10-05 15:22 | Observation (INO) | payer MEDICARE, OTHER ==
[2017-10-05 15:32] VITALS: BMI 24.3
[2017-10-05 16:49] LABS: BASO # 0.03 K/mm3 (0.0-2.0); BASO % 0.4 % (0.0-3.0); EOS # 0.1 (0.0-0.7); EOS % 1.2 % (1.5-5.0); GRAN # 5.75 (1.4-6.5); GRAN % 76.4 % (50.0-68.0); LYMPH # 1.3 (1.2-3.4); LYMPH % 16.8 % (22.0-35.0); MEAN CELL VOLUME 94.3 fl (80.0-105.0); MEAN CORPUSCULAR HEMOGLOBIN 32.1 pg (25.0-35.0); MEAN PLATELET VOLUME 9.9 fl (7.0-11.0); MONO # 0.4 (0.1-0.6); MONO % 5.2 % (1.0-6.0); RBC 4.05 10^6/uL (3.5-6.1); RED CELL DISTRIBUTION WIDTH 13.1 % (11.5-14.5); WHITE BLOOD COUNT 7.5 10^3/ul (4.5-11.0)
[2017-10-05 17:08] LABS: ALB/GLOB RATIO 1.4 (1.1-1.8); ALT/SGPT 36 U/L (7-56); AST/SGOT 29 U/L (17-59); BLOOD UREA NITROGEN 11 mg/dL (7-21); CALCIUM 8.9 mg/dL (8.4-10.5); GFR AFRICAN-AMERICAN > 60; GFR NON-AFRICAN AMERICAN > 60
[2017-10-05 17:45] LABS: URINE APPEARANCE CLEAR (CLEAR); URINE BILIRUBIN NEGATIVE (NEGATIVE); URINE BLOOD NEGATIVE (NEGATIVE); URINE COLOR YELLOW (YELLOW); URINE GLUCOSE (UA) NEGATIVE (NEGATIVE); URINE LEUKOCYTE ESTERASE NEGATIVE Leu/uL (NEGATIVE); URINE PROTEIN NEGATIVE mg/dL (<30 mg/dL); URINE UROBILINOGEN 0.2 E.U./dL (<1 E.U./dL)
[2017-10-05 17:51] LABS: B-TYPE NATRIURETIC PEPTIDE 428 pg/mL (0-450); TROPONIN I < 0.01 ng/mL
--- NOTE | 2017-10-05 17:58 | RAD ---
Date of service: 10/05/2017 HISTORY: chest pain COMPARISON: Comparison is made with 09/23/2017 TECHNIQUE: Chest PA and lateral FINDINGS: LUNGS: No active pulmonary disease. PLEURA: No significant pleural effusion identified. No pneumothorax apparent. CARDIOVASCULAR: Normal. OSSEOUS STRUCTURES: No significant abnormalities. VISUALIZED UPPER ABDOMEN: Normal. OTHER FINDINGS: None. IMPRESSION: No active disease.
--- NOTE | 2017-10-05 18:03 | ED PDOC ---
Arrival/HPI - General Chief Complaint: Upper Extremity Problem/Injury Time Seen by Provider: 10/05/17 15:32 Historian: Patient - History of Present Illness Narrative History of Present Illness (Text): 10/05/17 17:45 A 57 year old male, whose past medical history includes CAD s/p 5 stents, presents to the emergency department complaining of intermittent chest pain for 2 days. Patient reports he had stress test performed by rn long term care Dr. Mckinnon 3 days ago in which he was informed was unremarkable, but was unsure of results. Afterwards, patient began experiencing symptoms of right shoulder pain radiating to mid-sternum chest region. Patient notes also experiencing intermittent episodes of dizziness, but denies any nausea, vomiting, changes in gait, headache, or any other changes at this time. He also mentioned his blood pressure has been hypotensive at home, and has not taken his Nitroglycerin today. PMD: Dr. Willy Thornton Time/Duration: Prior to Arrival Symptom Onset: Gradual Symptom Course: Intermittent Quality: Burning Severity Level: Moderate Activities at Onset: Rest Context: Exertion Past Medical History - Provider Review Nursing Documentation Reviewed: Yes - Past History Past History: No Previous - Infectious Disease Hx of Infectious Diseases: None - Tetanus Immunization Tetanus Immunization: Up to Date - Cardiac Hx Cardiac Disorders: Yes (GA, stents x 5) Hx Hypertension: Yes - Pulmonary Hx Respiratory Disorders: Yes Hx Chronic Obstructive Pulmonary Disease (COPD): Yes - Neurological Hx Neurological Disorder: Yes Hx Dizziness: Yes Hx Transient Ischemic Attacks (TIA): Yes - HEENT Hx HEENT Disorder: No - Renal Hx Renal Disorder: No - Endocrine/Metabolic Hx Endocrine Disorders: No - Hematological/Oncological Hx Blood Disorders: No - Integumentary Hx Dermatological Disorder: No - Musculoskeletal/Rheumatological Hx Fractures: Yes (RIBS ,STERNUM) - Gastrointestinal Hx Gastrointestinal Disorders: Yes Hx Diverticulitis: Yes Hx Gastroesophageal Reflux: Yes - Genitourinary/Gynecological Hx Genitourinary Disorders: No - Psychiatric Hx Psychophysiologic Disorder: Yes Hx Anxiety: Yes Hx Depression: Yes Hx Substance Use: No - Past Surgical History Past Surgical History: No Previous - Surgical History Other/Comment: lung biopsy - Anesthesia Hx Anesthesia: Yes Hx Anesthesia Reactions: No Hx Malignant Hyperthermia: No - Suicidal Assessment Feels Threatened In Home Enviroment: No Family/Social History - Physician Review Nursing Documentation Reviewed: Yes Family/Social History: No Known Family HX Smoking Status: Heavy Smoker > 10 Cigarettes Daily Hx Alcohol Use: Yes Hx Substance Use: No Hx Substance Use Treatment: No Allergies/Home Meds Allergies/Adverse Reactions: Allergies metronidazole [From Flagyl] Allergy (Verified 10/05/17 19:14) SWELLING Home Medications: Home Meds Medication Instructions Recorded Confirmed Aspirin [Ecotrin] 81 mg PO DAILY 04/01/15 10/05/17 Atorvastatin [Lipitor] 40 mg PO DAILY 04/01/15 10/05/17 Clopidogrel [Plavix] 75 mg PO QAM 04/01/15 10/05/17 diaZEpam [Valium] 5 mg PO DAILY 03/18/17 10/05/17 Review of Systems - Physician Review All systems were reviewed & negative as marked: Yes - Review of Systems Cardiovascular: Chest Pain, Palpitations Gastrointestinal: absent: Nausea, Vomiting Musculoskeletal: Other (right shoulder pain radiates to mid-sternum chest region.) Neurological: Dizziness. absent: Headache, Gait Changes Physical Exam Vital Signs Reviewed: Yes Vital Signs Temp Pulse Resp BP Pulse Ox 10/05/17 18:35 58 L 18 143/78 97 10/05/17 15:51 98.3 F 60 18 138/83 99 Temperature: Afebrile Blood Pressure: Normal Pulse: Regular Respiratory Rate: Normal Appearance: Positive for: Well-Appearing, Non-Toxic, Comfortable Pain Distress: None Mental Status: Positive for: Alert and Oriented X 3 - Systems Exam Head: Present: Atraumatic, Normocephalic Pupils: Present: PERRL Extroacular Muscles: Present: EOMI Conjunctiva: Present: Normal Mouth: Present: Moist Mucous Membranes Neck: Present: Normal Range of Motion Respiratory/Chest: Present: Clear to Auscultation, Good Air Exchange. No: Respiratory Distress, Accessory Muscle Use Cardiovascular: Present: Regular Rate and Rhythm, Normal S1, S2, Other (No reproducible chest wall tenderness). No: Murmurs Abdomen: No: Tenderness, Distention, Peritoneal Signs Back: Present: Normal Inspection Upper Extremity: Present: Normal Inspection. No: Cyanosis, Edema Lower Extremity: Present: Normal Inspection. No: Edema Neurological: Present: GCS=15, CN II-XII Intact, Speech Normal Skin: Present: Warm, Dry, Normal Color. No: Rashes Psychiatric: Present: Alert, Oriented x 3, Normal Insight, Normal Concentration Medical Decision Making ED Course and Treatment: 10/05/17 17:48 Impression: 57 year old male with chest pain and palpitations HEART Score: 4 points(moderate score) Given the patient has history CAD s/p stenting with chest pain, I cannot rule out ACS. He is at moderate risk for a major adverse cardiac event that may occur. He sujata be kept for observation for serial troponins and cardiology consult. Patient does not PERC out, however does not complain of SOB and is low risk on Well's score, thus makign PE a less likely diagnosis. Differential Diagnosis included but are not limited to: ACS Myocarditis/Pericarditis PE Plan: --EKG --STG NTG -- Chest X-ray -- Labs -- Urinalysis -- Reassess and disposition Prior Visits: Notes and results from previous visits were reviewed. Patient was last seen in the emergency department on 09/23/2017 for sub-sternal chest pain radiating to his jaw. Patient was admitted under telemetry. Progress Notes: 10/05/2017 17:56 Labs reviewed with negative troponin. Chest X-ray IMPRESSION: No active disease. Dictator: Ramona Olmedo MD 10/05/17 18:[address] Mckinnon, who accepts patient to be admitted for observation under telemetry and will see him in the morning. 10/05/17 18:[address] Thornton, who accepts patient to be admitted under his service. NTG ordered for patient who refuses. He requests another medication for his agitation. Valium ordered. - Lab Interpretations Lab Results: 10/05/17 16:20 10/05/17 16:20 Lab Results 10/05/17 17:00: Urine Color Yellow, Urine Appearance Clear, Urine pH 6.0, Ur Specific [place] <= 1.005, Urine Protein Negative, Urine Glucose (UA) Negative, Urine Ketones Negative, Urine Blood Negative, Urine Nitrate Negative, Urine Bilirubin Negative, Urine Urobilinogen 0.2, Ur Leukocyte Esterase Negative 10/05/17 16:20: Sodium 142, Potassium 4.1, Chloride 105, Carbon Dioxide 26, Anion Gap 14, BUN 11, Creatinine 0.9, Est GFR ( Amer) > 60, Est GFR (Non- Af Amer) > 60, Random Glucose 93, Calcium 8.9, Magnesium 1.9, Total Bilirubin 0.6, AST 29, ALT 36, Alkaline Phosphatase 52, Troponin I < 0.01, NT-Pro-B Natriuret Pep 428, Total Protein 6.8, Albumin 4.0, Globulin 2.9, Albumin/ Globulin Ratio 1.4 10/05/17 16:20: WBC 7.5, RBC 4.05, Hgb 13.0 L, Hct 38.2 L, MCV 94.3, MCH 32.1, MCHC 34.0, RDW 13.1, Plt Count 235, MPV 9.9, Gran % 76.4 H, Lymph % (Auto) 16.8 L, Dunn % (Auto) 5.2, Eos % (Auto) 1.2 L, Baso % (Auto) 0.4, Gran # 5.75, Lymph # (Auto) 1.3, Dunn # (Auto) 0.4, Eos # (Auto) 0.1, Baso # (Auto) 0.03 - RAD Interpretation Radiology Orders: 10/05/17 16:19 CHEST TWO VIEWS (PA/LAT) [RAD] Stat - Medication Orders Current Medication Orders: Aspirin (Aspirin Chewable) 81 mg PO DAILY LONA Atorvastatin Calcium (Lipitor) 40 mg PO DIN LONA Clopidogrel Bisulfate (Plavix) 75 mg PO DAILY LONA Discontinued Medications Diazepam (Valium) 2 mg PO ONCE ONE PRN Reason: Protocol Stop: 10/05/17 18:35 Last Admin: 10/05/17 18:58 Dose: Not Given Non-Admin Reason: Patient Refused Nitroglycerin (Nitrostat Sl Tab) 0.4 mg SL STAT STA Stop: 10/05/17 18:28 Last Admin: 10/05/17 18:33 Dose: Not Given Non-Admin Reason: Patient Refused - Scribe Statement The provider has reviewed the documentation as recorded by the Devyn Deshpande Provider Scribe Attestation: All medical record entries made by the Darcyibjerrod were at my direction and personally dictated by me. I have reviewed the chart and agree that the record accurately reflects my personal performance of the history, physical exam, medical decision making, and the department course for this patient. I have also personally directed, reviewed, and agree with the discharge instructions and disposition. Disposition/Present on Arrival - Present on Arrival Any Indicators Present on Arrival: No History of DVT/PE: No History of Uncontrolled Diabetes: No Urinary Catheter: No History of Decub. Ulcer: No History Surgical Site Infection Following: None - Disposition Have Diagnosis and Disposition been Completed?: Yes Diagnosis: Chest pain Disposition: HOSPITALIZED Disposition Time: 18:27 Patient Problems: Current Active Problems Problem Status Onset Chest pain Acute Condition: STABLE
--- NOTE | 2017-10-05 20:50 | CP.PCM.HP ---
History of Present Illness - History of Present Illness History of Present Illness: History of Present Illness: The patient is a 57 year old man with a past medical history of CAD s/p PCI with stent placement who presented with a several day history of right shoulder pain and substernal chest pain. The patient was recently discharged after presenting with similar symptoms and had negative cardiac enzymes and a negative nuclear stress test 4 days ago. Given his persistent symptoms the patient was admitted for further cardiac evaluation for possible catheterization. Past Medical History: As per HPI, also HTN. Past Surgical History: As per HPI. Allergies: Flagyl. Medications: ASA 81mg po daily, Plavix 75mg po daily, Lipitor 40mg po daily, Valium 5mg po daily and Nitroglycerin sublingual tabs. Family History: Non-contributory. Social History: The patient reports an active 30 pack-year smoking history and daily EtOH use. He denies illicit drug abuse. Review of Systems: A 12-point review of systems is negative except as per HPI. Physical Examination: VS: T 98.3, P58, BP 143/78, RR 18 and O2 of 98% on RA. Gen: NAD HEENT: PERRL, EOMI, no scleral icterus, no conjunctival pallor. Neck: No JVD, no bruits. Lungs: CTA. CV: RRR, no m/r/g. Abd: NABS, soft, NT, ND. Ext: No c/c/e. Neuro: AAO x 3, no deficits. Laboratory Data: CBC reviewed and unremarkable. CMP reviewed and unremarkable. Troponin is negative. Assessment: The patient is a 57 year old man with a past medical history of CAD s/p PCI with stent placement who presented for evaluation of substernal chest pain and right shoulder pain. Plan: 1. Atypical chest pain. Initial troponin is negative. He also had a negative stress test [address] Mckinnon has been consulted for evaluation of possible cardiac cath. 2. Right shoulder pain. Start Motrin 80mg po TID prn pain. 3. CAD s/p PCI with stent placement. Resume ASA 81mg po daily, Plavix 75mg po daily and Lipitor 40mg po daily. Code Status: Full Code Present on Admission - Present on Admission Any Indicators Present on Admission: No Past Patient History - Infectious Disease Hx of Infectious Diseases: None - Tetanus Immunizations Tetanus Immunization: Up to Date - Past Medical History & Family History Past Medical History?: Yes - Past Social History Smoking Status: Heavy Smoker > 10 Cigarettes Daily - CARDIAC Hx Cardiac Disorders: Yes (MD, stents x 5) Hx Hypertension: Yes - PULMONARY Hx Respiratory Disorders: Yes Hx Chronic Obstructive Pulmonary Disease (COPD): Yes - NEUROLOGICAL Hx Neurological Disorder: Yes Hx Dizziness: Yes Hx Transient Ischemic Attacks (TIA): Yes - HEENT Hx HEENT Problems: No - RENAL Hx Chronic Kidney Disease: No - ENDOCRINE/METABOLIC Hx Endocrine Disorders: No - HEMATOLOGICAL/ONCOLOGICAL Hx Blood Disorders: No - INTEGUMENTARY Hx Dermatological Problems: No - MUSCULOSKELETAL/RHEUMATOLOGICAL Hx Fractures: Yes (RIBS ,STERNUM) - GASTROINTESTINAL Hx Gastrointestinal Disorders: Yes Hx Diverticulitis: Yes Hx Gastroesophageal Reflux: Yes - GENITOURINARY/GYNECOLOGICAL Hx Genitourinary Disorders: No - PSYCHIATRIC Hx Psychophysiologic Disorder: Yes Hx Anxiety: Yes Hx Depression: Yes Hx Substance Use: No - SURGICAL HISTORY Other/Comment: lung biopsy - ANESTHESIA Hx Anesthesia: Yes Hx Anesthesia Reactions: No Hx Malignant Hyperthermia: No Meds Allergies/Adverse Reactions: Allergies Allergy/AdvReac Type Severity Reaction Status Date / Time metronidazole [From Flagyl] Allergy SWELLING Verified 10/05/17 19:14 Results - Vital Signs Recent Vital Signs: Last Vital Signs Temp 98.3 F 10/05/17 15:51 Pulse 51 L 10/05/17 19:15 Resp 16 10/05/17 19:15 BP 127/62 10/05/17 19:15 Pulse Ox 98 10/05/17 19:15 - Labs Result Diagrams: 10/05/17 16:20 10/05/17 16:20
[2017-10-05] MEDS ORDERED: Pneumococcal 23-Valent Vaccine IM ONE (23:10)
[2017-10-06 06:18] LABS: HEMOGLOBIN 13.1 g/dL (14.0-18.0); MEAN CELL VOLUME 94.4 fl (80.0-105.0); MEAN CORPUSCULAR HEMOGLOBIN 31.6 pg (25.0-35.0); MEAN CORPUSCULAR HGB CONC 33.5 g/dl (31.0-37.0); MEAN PLATELET VOLUME 10.3 fl (7.0-11.0); RBC 4.14 10^6/uL (3.5-6.1); RED CELL DISTRIBUTION WIDTH 13.1 % (11.5-14.5); WHITE BLOOD COUNT 7.6 10^3/ul (4.5-11.0)
[2017-10-06 06:44] LABS: BLOOD UREA NITROGEN 14 mg/dL (7-21); CALCIUM 8.9 mg/dL (8.4-10.5); GFR AFRICAN-AMERICAN > 60; GFR NON-AFRICAN AMERICAN > 60
[2017-10-06 07:02] VITALS: BP 132/72; RESP 20; TEMP 97.7; O2SAT 96
--- NOTE | 2017-10-06 09:17 | PN ---
SUBJECTIVE: The patient was seen and examined at bedside on the remote telemetry luz. No acute events overnight. He remains afebrile and hemodynamically stable. He reports continued chest wall discomfort, most notably to the right shoulder and clavicle, but denies dyspnea, palpitations or radiation of pain. OBJECTIVE: VITAL SIGNS: Temperature 97.7, pulse 54, blood pressure 132/72, respiratory rate 20, oxygen saturation 96% on room air. GENERAL: No apparent distress. HEENT: PERRL, EOMI. No scleral icterus. No conjunctival pallor. NECK: No JVD. No bruits. LUNGS: Clear to auscultation. CARDIOVASCULAR: Regular rate and rhythm. Normal S1 and S2. No murmurs. ABDOMEN: Normoactive bowel sounds. Soft, nontender and nondistended. EXTREMITIES: No edema. NEUROLOGIC: Awake, alert and oriented x 3. No focal motor deficits. LABORATORY DATA: CBC reviewed and unremarkable. BMP reviewed and unremarkable. ASSESSMENT: The patient is a 57 year old man with a past medical history of CAD s/p PCI with stent placement who presented for evaluation of reported substernal chest pain and right shoulder pain. PLAN: 1. Atypical chest pain. The patient has a negative troponin and also had a negative stress test 4 days ago. He is inquiring about cardiac catheterization given his persistent discomfort. He has pending evaluation with Dr. Mckinnon of Cardiology. 2. Right shoulder pain. The patient endorses response to NSAIDs. Continue Motrin 800 mg p.o. t.i.d. as needed for pain. 3. CAD s/p PCI with stent placement. Continue Aspirin 81 mg p.o. daily, Plavix 75 mg p.o. daily and Lipitor 40 mg p.o. daily. 4. Prophylaxis. GI prophylaxis is not indicated as the patient is eating. DVT prophylaxis is not indicated as the patient is ambulatory. CODE STATUS: Full code. Willy Thornton MD MTDTonny
--- NOTE | 2017-10-06 09:57 | CARD ---
APPROVED REPORT Date of service: 10/05/2017 EKG Measurement Heart [id number] <Conclusion> Sinus bradycardia Septal infarct, age undetermined Abnormal ECG
--- NOTE | 2017-10-06 14:22 | CON ---
Copied To: Greg Mckinnon MD Attending MD: Greg Mckinnon MD DATE: 10/06/2017 CARDIOLOGY CONSULTATION HISTORY: The patient is a 57-year-old male, who presents with atypical chest pain, bilateral shoulder pain, intermittent neck pain. He also complains of palpitations. The patient's past medical history includes a history of PTCA and stents in the past. He suffers from hypercholesterolemia, which he has been treated with atorvastatin. The patient underwent a stress test several days ago, which was a nuclear stress test that showed no active ischemia with normal LV function. There is an echocardiogram which was performed in 02/2017 shows good LV function with no LV outflow obstruction. Carotid Dopplers performed recently reveals no active carotid disease. Social history and review of systems reviewed in detail and were found to be unremarkable. PHYSICAL EXAMINATION: VITAL SIGNS: Blood pressure is 132/72, the heart rate is in the 50s. Normal sinus rhythm. NECK: Negative JVD. LUNGS: Without rales. HEART: Reveals S1, S2. EXTREMITIES: Without edema. LABORATORY DATA: Laboratories include hemoglobin is 13.1. Chemistries: BUN and creatinine are unremarkable. Troponin is negative x1 on this admission. EKG reveals normal sinus rhythm with no acute changes. IMPRESSION: 1. Atypical chest pain. 2. Bilateral shoulder discomfort. 3. History of percutaneous transluminal coronary angioplasty and stent in the past. 4. Palpitations. 5. Intermittent dizziness. PLAN: Given these findings, there is no evidence for a cardiac cause of the patient's complaints at this time. No arrhythmias noted on telemetry. We will discontinue telemetry today. The patient has a followup with Neurology in the morning as an outpatient. Greg Mckinnon MD
[2017-10-06 16:03] VITALS: PULSE 49
== END 2017-10-06 16:16 | disposition home or self-care (01) ==
LOC: ED 15:22 → ERH 18:28 → 3RNO 20:46
PROVIDERS: ADMIT Student in an Organized Health Care Education/Training Program; ATTEND Student in an Organized Health Care Education/Training Program
DX: R07.89 Other chest pain (principal); M25.512 Pain in left shoulder; M25.511 Pain in right shoulder; R42 Dizziness and giddiness; R00.2 Palpitations; M54.2 Cervicalgia; I10 Essential (primary) hypertension; E78.00 Pure hypercholesterolemia, unspecified; I25.10 Atherosclerotic heart disease of native coronary artery without angina pectoris; K21.9 Gastro-esophageal reflux disease without esophagitis; J44.9 Chronic obstructive pulmonary disease, unspecified; Z79.82 Long term (current) use of aspirin; Z79.02 Long term (current) use of antithrombotics/antiplatelets; Z95.5 Presence of coronary angioplasty implant and graft; Z86.73 Personal history of transient ischemic attack (TIA), and cerebral infarction without residual deficits; Z87.891 Personal history of nicotine dependence
CPT/HCPCS: 36415; 71046; 80048; 80053; 81003; 83735; 83880; 84484; 85025; 85027; 93005; 99285; G0378

== ENCOUNTER 2017-11-22 19:44 | Observation (INO) | payer MEDICARE, OTHER ==
[2017-11-22 19:45] VITALS: BMI 23.3
--- NOTE | 2017-11-22 20:31 | ED PDOC ---
Arrival/HPI - General Chief Complaint: Dizziness/Lightheaded Time Seen by Provider: 11/22/17 19:52 Historian: Patient - History of Present Illness Narrative History of Present Illness (Text): 11/22/17 20:00 Anuel Whitt is a 57 year old male, whose past medical includes CAD with cardiac stents, who presents to the Emergency department complaining of left- sided chest discomfort radiating down his left arm. Patient reports pain is intermittent. Patient states pain is not musculoskeletal. Patient denies any shortness of breath, back pain, abdominal pain, or any other complaints. Patient states he took 1 Ecotrin tablet prior to arrival. Patient notes he is currently prepping for a colonoscopy. Symptom Onset: Gradual Symptom Course: Unchanged Activities at Onset: Light Context: Home Past Medical History - Provider Review Nursing Documentation Reviewed: Yes - Past History Past History: No Previous - Infectious Disease Hx of Infectious Diseases: None - Tetanus Immunization Tetanus Immunization: Up to Date - Cardiac Hx Pacemaker: No - Pulmonary Hx Respiratory Disorders: Yes Hx Chronic Obstructive Pulmonary Disease (COPD): Yes - Neurological Hx Paralysis: No - HEENT Hx HEENT Disorder: No - Renal Hx Renal Disorder: No - Endocrine/Metabolic Hx Endocrine Disorders: No - Hematological/Oncological Hx Blood Transfusions: No Hx Blood Transfusion Reaction: No - Integumentary Hx Dermatological Disorder: No - Musculoskeletal/Rheumatological Hx Musculoskeletal Disorders: Yes (BAD BACK) - Gastrointestinal Hx Gastrointestinal Disorders: Yes Hx Diverticulitis: Yes Hx Gastroesophageal Reflux: Yes - Genitourinary/Gynecological Hx Genitourinary Disorders: No - Psychiatric Hx Substance Use: No - Past Surgical History Past Surgical History: No Previous - Surgical History Other/Comment: lung biopsy - Anesthesia Hx Anesthesia: Yes Hx Anesthesia Reactions: No Hx Malignant Hyperthermia: No - Suicidal Assessment Feels Threatened In Home Enviroment: No Family/Social History - Physician Review Nursing Documentation Reviewed: Yes Family/Social History: Unknown Family HX Smoking Status: Current Some Days Smoker Hx Alcohol Use: Yes (DAILY BEERS-CESSATION ADVISED) Hx Substance Use: No Hx Substance Use Treatment: No Allergies/Home Meds Allergies/Adverse Reactions: Allergies ciprofloxacin Allergy (Severe, Verified 11/18/17 14:06) NUMBNESS levofloxacin [From Levaquin] Allergy (Verified 11/18/17 14:06) NUMBNESS metronidazole [From Flagyl] Allergy (Verified 08/14/18 19:14) SWELLING Home Medications: Home Meds Medication Instructions Recorded Confirmed Aspirin [Ecotrin] 81 mg PO DAILY 04/01/15 11/18/17 Atorvastatin [Lipitor] 40 mg PO DAILY 04/01/15 11/18/17 Clopidogrel [Plavix] 75 mg PO QAM 04/01/15 11/18/17 diaZEpam [Valium] 5 mg PO DAILY 03/18/17 11/18/17 Cholecalciferol (Vitamin D3) 1,000 unit PO DAILY 11/18/17 11/18/17 [Vitamin D3] Cyanocobalamin [Vitamin B12] 0 mcg PO DAILY 11/18/17 11/18/17 Folic Acid 1 mg PO DAILY 11/18/17 11/18/17 Review of Systems - Physician Review All systems were reviewed & negative as marked: Yes - Review of Systems Constitutional: Normal. absent: Fevers Eyes: Normal ENT: Normal Respiratory: absent: SOB Cardiovascular: Chest Pain Gastrointestinal: Normal. absent: Abdominal Pain, Diarrhea, Nausea, Vomiting Genitourinary Male: Normal. absent: Dysuria, Frequency, Hematuria, Urinary Output Changes Musculoskeletal: Normal. absent: Back Pain, Neck Pain Skin: Normal. absent: Rash Neurological: Normal. absent: Headache, Dizziness Endocrine: Normal Hemo/Lymphatic: Normal Psychiatric: Normal Physical Exam Vital Signs Reviewed: Yes Temperature: Afebrile Blood Pressure: Normal Pulse: Regular Respiratory Rate: Normal Appearance: Positive for: Well-Appearing, Non-Toxic, Comfortable Pain Distress: None Mental Status: Positive for: Alert and Oriented X 3 - Systems Exam Head: Present: Atraumatic, Normocephalic Pupils: Present: PERRL Extroacular Muscles: Present: EOMI Conjunctiva: Present: Normal Mouth: Present: Moist Mucous Membranes Neck: Present: Normal Range of Motion. No: Meningeal Signs, MIDLINE TENDERNESS, Paraspinal Tenderness Respiratory/Chest: Present: Clear to Auscultation, Good Air Exchange. No: Respiratory Distress, Accessory Muscle Use Cardiovascular: Present: Regular Rate and Rhythm, Normal S1, S2. No: Murmurs Abdomen: No: Tenderness, Distention, Peritoneal Signs Back: Present: Normal Inspection Upper Extremity: Present: Normal Inspection. No: Cyanosis, Edema Lower Extremity: Present: Normal Inspection. No: Edema Neurological: Present: GCS=15, CN II-XII Intact, Speech Normal Skin: Present: Warm, Dry, Normal Color. No: Rashes Psychiatric: Present: Alert, Oriented x 3, Normal Insight, Normal Concentration Medical Decision Making ED Course and Treatment: 11/22/17 20:00 Impression: 57 year old male complaining of left-sided chest discomfort radiating down his left arm. Plan: -- EKG -- CXR -- Labs, cardiac enzymes -- Reassess and disposition Prior Visits: Notes and results from previous visits were reviewed. On 10/05/2017, pt was seen in the Emergency department for intermittent chest pain. Pt was admitted to the hospital for further evaluation. Progress Notes: Reviewed EKG, NSR at [address]-segment elevations or depressions, no T-wave inversions, normal intervals. 11/22/17 20:57 Chest X-Ray reviewed, shows no acute processes. 11/22/17 21:[address] Thornton, who is aware and agrees with plan. Accepts pt in to his service. Pt will go to Telemetry observation for chest pain. Requests Dr. Mckinnon on consult. Discussed plan with pt, who verbalizes understanding. - Lab Interpretations I have reviewed the lab results: Yes - RAD Interpretation Radiology Orders: 11/22/17 20:03 CHEST PORTABLE [RAD] Stat [employer] Supervisor: ED Physician - EKG Interpretation Interpreted by ED Physician: Yes Type: 12 lead EKG - Scribe Statement The provider has reviewed the documentation as recorded by the Scribe Jessica Stone All medical record entries made by the Scribe were at my direction and personally dictated by me. I have reviewed the chart and agree that the record accurately reflects my personal performance of the history, physical exam, medical decision making, and the department course for this patient. I have also personally directed, reviewed, and agree with the discharge instructions and disposition. Disposition/Present on Arrival - Present on Arrival Any Indicators Present on Arrival: No History of DVT/PE: No History of Uncontrolled Diabetes: No Urinary Catheter: No History of Decub. Ulcer: No History Surgical Site Infection Following: None - Disposition Have Diagnosis and Disposition been Completed?: Yes Diagnosis: Chest pain Disposition: HOSPITALIZED Disposition Time: 22:05 Patient Plan: Observation Condition: STABLE Discharge Instructions (ExitCare): Chest Pain (ED) Forms: [employer] (Greek)
[2017-11-22 20:45] LABS: HEMOGLOBIN 13.4 g/dL (14.0-18.0); MEAN CELL VOLUME 96.5 fl (80.0-105.0); MEAN CORPUSCULAR HEMOGLOBIN 33.1 pg (25.0-35.0); MEAN CORPUSCULAR HGB CONC 34.3 g/dl (31.0-37.0); MEAN PLATELET VOLUME 9.4 fl (7.0-11.0); RBC 4.05 10^6/uL (3.5-6.1); RED CELL DISTRIBUTION WIDTH 13.7 % (11.5-14.5); WHITE BLOOD COUNT 7.5 10^3/ul (4.5-11.0)
[2017-11-22 20:49] LABS: INR 0.91; PARTIAL THROMBOPLASTIN TIME 26.9 Seconds (25.1-36.5); PROTHROMBIN TIME 10.3 SECONDS (9.4-12.5)
[2017-11-22 20:50] LABS: ALB/GLOB RATIO 1.4 (1.1-1.8); ALT/SGPT 38 U/L (7-56); AST/SGOT 41 U/L (17-59); BLOOD UREA NITROGEN 11 mg/dL (7-21); CALCIUM 8.7 mg/dL (8.4-10.5); GFR NON-AFRICAN AMERICAN > 60
[2017-11-22 21:09] LABS: TROPONIN I < 0.01 ng/mL
[2017-11-22] MEDS ORDERED: Sodium Chloride 0.9% 1,000 ML IV STA (22:04)
[2017-11-23] MEDS ORDERED: Dextrose 50% SYRINGE Inj (50 ml) IVP ONE (00:39)
--- NOTE | 2017-11-23 00:44 | CP.PCM.PN ---
Subjective - Date & Time of Evaluation Date of Evaluation: 11/23/17 Time of Evaluation: 00:42 - Subjective Subjective: Alvin Snow PGY1 for Dr Brice CC: sudden blurry vision Pt reports sudden onset of blurry vision which started midnight. Pt stats this i s worse on the left side. Pt has been NPO for colonoscopy tomorrow. Pt reports that he has had a "mini stroke" in the past. 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 chronic pansinusitis. Pt glucose was 68 on finger stick, 135/63, 58, 97%, RR20. Anuel Whitt is a 57 year old male, whose past medical includes CAD with cardiac stents, who presents to the Emergency department complaining of left- sided chest discomfort radiating down his left arm. Patient reports pain is intermittent. Patient states pain is not musculoskeletal. Patient denies any shortness of breath, back pain, abdominal pain, or any other complaints. Patient states he took 1 Ecotrin tablet prior to arrival. Patient notes he is currently prepping for a colonoscopy. ROS denies: chest pain, SOB, trouble speaking, numbness, loss of sensation Objective - Vital Signs/Intake and Output Vital Signs (last 24 hours): Temp Pulse Resp BP Pulse Ox 98.3 F 64 18 121/61 97 11/22/17 20:40 11/22/17 23:42 11/22/17 23:42 11/22/17 23:42 11/22/17 23:42 - Medications Medications: Current Medications Dextrose (Dextrose 50% Inj) 25 ml IVP ONCE ONE Stop: 11/23/17 00:40 Sodium Chloride (Sodium Chloride 0.9%) 1,000 mls @ 100 mls/hr IV .Q10H STA Stop: 11/23/17 08:03 Last Admin: 11/22/17 22:17 Dose: 100 mls/hr - Labs Labs: 11/22/17 20:27 11/22/17 20:27 PT 10.3 SECONDS (9.4-12.5) 11/22/17 20:27 INR 0.91 11/22/17 20:27 APTT 26.9 Seconds (25.1-36.5) 11/22/17 20:27 - Constitutional Appears: No Acute Distress - Head Exam Head Exam: ATRAUMATIC, NORMOCEPHALIC - Eye Exam Eye Exam: EOMI, PERRL - ENT Exam ENT Exam: Mucous Membranes Moist - Respiratory Exam Respiratory Exam: Clear to Ausculation Bilateral, NORMAL BREATHING PATTERN. absent: Accessory Muscle Use - Cardiovascular Exam Cardiovascular Exam: REGULAR RHYTHM, +S1, +S2 - GI/Abdominal Exam GI & Abdominal Exam: Soft - Extremities Exam Extremities Exam: Full ROM - Neurological Exam Neurological Exam: Alert, Awake, CN II-XII Intact, Oriented x3 Neuro motor strength exam: Left Upper Extremity: 5, Right Upper Extremity: 5, Left Lower Extremity: 5, Right Lower Extremity: 5 Additional comments: no focal neurological deficit no slurring of speech, slight deepening of Right naso labial fold peripheral visual lynch intact pt moves all extermeties equally motor sensory grossly intact rapidly alternating movements intact Assessment and Plan - Assessment and Plan (Free Text) Plan: Sudden onset of blurry vision, bilateral, L worse than R, possibly due to hypoglycemic episode Maxillary sinus tenderness b/l Plan give 1/2 amp of D50 d5 normal saline at 100ml/hr reassess in 15 mins, if symptoms not improved, will consider CT of head 1AM: reassess pt. He just received 1/2 amp D50. bluriness improves but eye/face pressure persists. Physcial exam significant for maxilary sinus tenderness. Offered nasal spray to pt but pt refuses. Told pt to page again if new sx appears. 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 chronic pansinusitis
[2017-11-23] MEDS: Dextrose 5%/0.9% NS 1,000 ML IV SCH ×2 (00:58→13:16)
--- NOTE | 2017-11-23 08:02 | RAD ---
Date of service: 11/22/2017 HISTORY: chest pain COMPARISON: 10/05/2017 FINDINGS: LUNGS: No active pulmonary disease. PLEURA: No significant pleural effusion identified, no pneumothorax apparent. CARDIOVASCULAR: Normal. OSSEOUS STRUCTURES: No significant abnormalities. VISUALIZED UPPER ABDOMEN: Normal. OTHER FINDINGS: None. IMPRESSION: No active disease.
[2017-11-23 09:13] LABS: HEMOGLOBIN 14.1 g/dL (14.0-18.0); MEAN CELL VOLUME 96.3 fl (80.0-105.0); MEAN CORPUSCULAR HEMOGLOBIN 32.3 pg (25.0-35.0); MEAN CORPUSCULAR HGB CONC 33.6 g/dl (31.0-37.0); MEAN PLATELET VOLUME 9.6 fl (7.0-11.0); RBC 4.36 10^6/uL (3.5-6.1); RED CELL DISTRIBUTION WIDTH 13.9 % (11.5-14.5); WHITE BLOOD COUNT 8.7 10^3/ul (4.5-11.0)
--- NOTE | 2017-11-23 09:16 | HP ---
HISTORY OF PRESENT ILLNESS: The patient is a 57-year-old man with a past medical history of CAD s/p PCI with stent placement and alcohol dependence who presented for evaluation of a several day history of periumbilical and left upper quadrant abdominal discomfort. The patient has been seen in his PMD's office multiple times for the aforementioned complaints and was advised that it may likely be related to his heavy alcohol consumption. The patient also sought GI evaluation with Dr. Verdugo and was scheduled for EGD and colonoscopy on the day after his presentation to the ED. Due to the intensity of his left upper quadrant abdominal pain, the patient opted for ED evaluation. Upon arrival to the ED he was found to be afebrile, hemodynamically stable and with unremarkable initial laboratory studies. He was subsequently admitted to the telemetry luz for observation given his reported complaint of chest pain in the ED. This morning on examination the patient denies any chest pain and states that his complaint was that of left upper quadrant abdominal pain that radiates to the epigastric and substernal region. Of note, the patient had a negative nuclear stress test performed 6 weeks ago. PAST MEDICAL HISTORY: As per HPI, also hypertension. PAST SURGICAL HISTORY: As per HPI. ALLERGIES: Flagyl and Quinolones. MEDICATIONS: Aspirin 81 mg p.o. daily, Plavix 75 mg p.o. daily, Lipitor 40 mg p.o. daily, Pepcid 20 mg p.o. daily and Valium 5 mg p.o. at bedtime. FAMILY HISTORY: Noncontributory. SOCIAL HISTORY: The patient reports an active 30 pack-year smoking history and daily alcohol use. He denies illicit drug abuse. REVIEW OF SYSTEMS: A 12-point review of systems is negative except as per HPI. PHYSICAL EXAMINATION: VITAL SIGNS: Temperature 98, pulse 58, blood pressure 127/66, respiratory rate 18, oxygen saturation 99% on room air. GENERAL: No apparent distress. HEENT: PERRL, EOMI. No scleral icterus. No conjunctival pallor. NECK: No JVD, no bruits. LUNGS: Clear to auscultation. CARDIOVASCULAR: Regular rate and rhythm. Normal S1 and S2. No murmurs. ABDOMEN: Normoactive bowel sounds. Soft, nondistended. Mild tenderness to palpation with voluntary guarding to left upper quadrant. EXTREMITIES: No edema. NEUROLOGIC: Awake, alert and oriented x 3. No focal motor deficits. LABORATORY DATA: CBC reviewed and unremarkable. CMP reviewed and unremarkable. Troponin less than 0.01. IMAGING STUDIES: Chest x-ray demonstrates no acute pathology. ASSESSMENT: The patient is a 57-year-old man with a past medical history of hypertension, CAD s/p PCI with stent placement and alcohol dependence who presented for evaluation of a several day history of left upper quadrant abdominal pain who was pending EGD and colonoscopy. PLAN: 1. Left upper quadrant abdominal pain. The patient was advised that given his extensive alcohol use, his abdominal discomfort may be secondary to pancreatitis. The patient has been started on IV fluid hydration. We will check a lipase level. GI evaluation with Dr. Verdugo is pending. 2. CAD s/p PCI with stent placement. The patient had a negative nuclear stress test approximately 6 weeks ago and furthermore remains chest pain free. His aspirin and Plavix are on hold in anticipation of EGD and colonoscopy. We will resume his aspirin, Plavix and Lipitor when he is no longer n.p.o. 3. Hypertension. Blood pressure remains controlled off antihypertensives. 4. Alcohol dependence. The patient has again been extensively counseled on the need for alcohol cessation. 5. Prophylaxis. Continue Pepcid for GI prophylaxis. DVT prophylaxis not indicated as the patient is ambulatory. CODE STATUS: Full code. Willy Thornton MD RAY
[2017-11-23 09:31] LABS: ALB/GLOB RATIO 1.3 (1.1-1.8); ALT/SGPT 38 U/L (7-56); AST/SGOT 42 U/L (17-59); BLOOD UREA NITROGEN 9 mg/dL (7-21); GFR NON-AFRICAN AMERICAN > 60; LIPASE 62 U/L (23-300)
[2017-11-23 09:35] LABS: TROPONIN I < 0.01 ng/mL
--- NOTE | 2017-11-23 11:34 | CP.PCM.CON ---
<Wesley Ellsworth - Last Filed: 11/23/17 13:11> History of Present Illness - History of Present Illness History of Present Illness: Gastroenterology Consult note for Dr. Verdugo Consult reason: Established patient scheduled for outpatient endoscopy with acute chest discomfort HPI: 57 year old male with past medical history that includes hypertension, hyperlipidemia, CAD s/p 5 stents, gastric ulcer, alcohol abuse and COPD who presents to [facility] complaining of left flank/chest discomfort. Patient reports that his pain begins at the left flank/LLQ and radiates from the left flank into the left lower quadrant. Patient rates the pain as 10/10 and has been ongoing for the past 48 hours. He indicates that he will have episodes similar to this one quit often over the span of the past 18 months. Patient was scheduled for endoscopy procedure and underwent bowel prep without incident. Patient indicated that his bowel movements were green to yellow last evening. Denies blood loss. Denies headache, shortness of breath, sharp stabbing chest pain, nausea, vomiting, diaphoresis, palpitations. Patient reports recent nuclear stress test with his manager aer[employer] Dr. Mckinnon that was reportedly unremarkable. PMH: Anxiety, COPD, Depression, Fractures (RIBS ,STERNUM), HTN, Hypercholesterolemia, Hyperlipidemia, CAD s/p 5 stents, gastric ulcer, renal cysts, BPH, hx of hepatic infiltration PSH: Coronary stenting (x5), lung biopsy, Endoscopy FMH: Sister with thyroid cancer, no history of GI cancers SOCHX: Tobacco: Current, 1 PPD for past 36 years, ETOH: Social, ID: Denies, lives at home and is not currently employed ALL: Ciprofloxacin, levofloxacin, metronidazole MEDS: MAR reviewed Review of Systems - Review of Systems All systems: reviewed and no additional remarkable complaints except (as mentioned in HPI) Past Patient History - Infectious Disease Hx of Infectious Diseases: None - Tetanus Immunizations Tetanus Immunization: Up to Date - Past Medical History & Family History Past Medical History?: Yes - Past Social History Smoking Status: Current Some Days Smoker Alcohol: > 2 Drinks/Day Drugs: Denies - CARDIAC Hx Cardiac Disorders: Yes Hx Hypertension: Yes - PULMONARY Hx Respiratory Disorders: No - NEUROLOGICAL Hx Neurological Disorder: No - HEENT Hx HEENT Problems: No - RENAL Hx Chronic Kidney Disease: No - ENDOCRINE/METABOLIC Hx Endocrine Disorders: No - HEMATOLOGICAL/ONCOLOGICAL Hx Blood Disorders: No - INTEGUMENTARY Hx Dermatological Problems: No - MUSCULOSKELETAL/RHEUMATOLOGICAL Hx Musculoskeletal Disorders: No Hx Falls: No - GASTROINTESTINAL Hx Gastrointestinal Disorders: No - GENITOURINARY/GYNECOLOGICAL Hx Genitourinary Disorders: No - PSYCHIATRIC Hx Psychophysiologic Disorder: Yes Hx Anxiety: Yes Hx Depression: Yes - SURGICAL HISTORY Hx Surgeries: Yes Hx Open Heart Surgery: Yes - ANESTHESIA Hx Anesthesia: Yes Hx Anesthesia Reactions: No Hx Malignant Hyperthermia: No Meds Allergies/Adverse Reactions: Allergies Allergy/AdvReac Type Severity Reaction Status Date / Time ciprofloxacin Allergy Severe NUMBNESS Verified 11/18/17 14:06 levofloxacin [From Levaquin] Allergy NUMBNESS Verified 11/18/17 14:06 metronidazole [From Flagyl] Allergy SWELLING Verified 10/05/17 19:14 - Medications Medications: Current Medications Dextrose/Sodium Chloride (Dextrose 5%/0.9% Ns 1000 Ml) 1,000 mls @ 100 mls/hr IV .Q10H LONA Last Admin: 11/23/17 00:58 Dose: 100 mls/hr Physical Exam - Constitutional Appears: No Acute Distress - Head Exam Head Exam: ATRAUMATIC, NORMAL INSPECTION, NORMOCEPHALIC - Eye Exam Eye Exam: EOMI, PERRL - ENT Exam ENT Exam: Mucous Membranes Moist - Respiratory Exam Respiratory Exam: Clear to Auscultation Bilateral, NORMAL BREATHING PATTERN. absent: Rales, Rhonchi, Wheezes - Cardiovascular Exam Cardiovascular Exam: REGULAR RHYTHM, +S1, +S2 - GI/Abdominal Exam GI & Abdominal Exam: Normal Bowel Sounds, Soft, Tenderness (deep palpation of the left upper quadrant/left flank). absent: Distended, Firm, Guarding, Hernia - Extremities Exam Extremities exam: Negative for: calf tenderness, pedal edema - Neurological Exam Neurological exam: Alert, CN II-XII Intact, Oriented x3, Reflexes Normal Additional comments: motor and sensory grossly intact moves all four extremities past midline - Psychiatric Exam Psychiatric exam: Normal Affect, Normal Mood - Skin Skin Exam: Dry, Intact Results - Vital Signs Recent Vital Signs: Last Vital Signs Temp 98.0 F 11/23/17 06:00 Pulse 65 11/23/17 06:00 Resp 18 11/23/17 04:00 BP 127/67 11/23/17 04:00 Pulse Ox 97 11/22/17 23:42 - Labs Result Diagrams: 11/23/17 08:50 11/23/17 08:50 Labs: Laboratory Results - last 24 hr 11/22/17 11/22/17 11/22/17 20:27 20:27 20:27 WBC 7.5 RBC 4.05 Hgb 13.4 L Hct 39.1 L MCV 96.5 MCH 33.1 MCHC 34.3 RDW 13.7 Plt Count 267 MPV 9.4 PT 10.3 INR 0.91 APTT 26.9 Sodium 134 Potassium 4.9 Chloride 100 Carbon Dioxide 25 Anion Gap 14 BUN 11 Creatinine 0.8 Est GFR ( Amer) > 60 Est GFR (Non-Af Amer) > 60 POC Glucose (mg/dL) Random Glucose 89 Calcium 8.7 Total Bilirubin 0.4 AST 41 ALT 38 Alkaline Phosphatase 48 Lactate Dehydrogenase 378 Total Creatine Kinase 183 Troponin I < 0.01 Total Protein 7.0 Albumin 4.0 Globulin 3.0 Albumin/Globulin Ratio 1.4 Lipase 11/23/17 11/23/17 11/23/17 00:17 01:26 07:33 WBC RBC Hgb Hct MCV MCH MCHC RDW Plt Count MPV PT INR APTT Sodium Potassium Chloride Carbon Dioxide Anion Gap BUN Creatinine Est GFR ( Amer) Est GFR (Non-Af Amer) POC Glucose (mg/dL) 68 114 H 79 Random Glucose Calcium Total Bilirubin AST ALT Alkaline Phosphatase Lactate Dehydrogenase Total Creatine Kinase Troponin I Total Protein Albumin Globulin Albumin/Globulin Ratio Lipase 11/23/17 11/23/17 08:50 08:50 WBC 8.7 RBC 4.36 Hgb 14.1 Hct 42.0 MCV 96.3 MCH 32.3 MCHC 33.6 RDW 13.9 Plt Count 283 MPV 9.6 PT INR APTT Sodium 141 Potassium 4.4 Chloride 105 Carbon Dioxide 30 Anion Gap 10 BUN 9 Creatinine 0.8 Est GFR ( Amer) > 60 Est GFR (Non-Af Amer) > 60 POC Glucose (mg/dL) Random Glucose 100 Calcium 9.0 Total Bilirubin 0.9 AST 42 ALT 38 Alkaline Phosphatase 56 Lactate Dehydrogenase Total Creatine Kinase Troponin I < 0.01 Total Protein 7.0 Albumin 4.0 Globulin 3.0 Albumin/Globulin Ratio 1.3 Lipase 62 Assessment & Plan - Assessment and Plan (Free Text) Assessment: 57 year old male with past medical history that includes hypertension, hyperlipidemia, CAD s/p 5 stents, gastric ulcer, alcohol abuse and COPD who presents to [facility] complaining of left flank/chest discomfort who had planned endoscopy today with Dr. Verdugo Plan: Left Upper quadrant/Left flank discomfort Scheduled colonoscopy Hx of gastric ulcer Hx of gallstones Hx of fatty infiltration of liver HTN HLD Hx CAD s/p 5 stents - Discussion with primary care physician conducted and PMD indicating no need for cardiology consultation due to patient having recent(within past 6 weeks) cardiac stress test that was negative - Patient did not complete bowel prep but does report loose green/yellow stool. Does indicate presence of some blood with recent bm. - NPO for potential endoscopy - Further recommendations per Dr. Verdugo - Date & Time Date: 11/23/17 Time: 11:35 <Judith Verdugo V - Last Filed: 11/23/17 23:33> Meds - Medications Medications: Current Medications Sodium Chloride (Sodium Chloride 0.9%) 1,000 mls @ 100 mls/hr IV .Q10H LONA Last Admin: 11/23/17 18:17 Dose: 100 mls/hr Results - Vital Signs Recent Vital Signs: Last Vital Signs Temp 97.8 F 11/23/17 17:58 Pulse 68 11/23/17 22:00 Resp 20 11/23/17 17:58 BP 125/73 11/23/17 17:58 Pulse Ox 100 11/23/17 16:48 - Labs Result Diagrams: 11/23/17 08:50 11/23/17 08:50 Labs: Laboratory Results - last 24 hr 11/23/17 11/23/17 11/23/17 00:17 01:26 07:33 WBC RBC Hgb Hct MCV MCH MCHC RDW Plt Count MPV Sodium Potassium Chloride Carbon Dioxide Anion Gap BUN Creatinine Est GFR ( Amer) Est GFR (Non-Af Amer) POC Glucose (mg/dL) 68 114 H 79 Random Glucose Calcium Total Bilirubin AST ALT Alkaline Phosphatase Troponin I Total Protein Albumin Globulin Albumin/Globulin Ratio Lipase 11/23/17 11/23/17 11/23/17 08:50 08:50 11:29 WBC 8.7 RBC 4.36 Hgb 14.1 Hct 42.0 MCV 96.3 MCH 32.3 MCHC 33.6 RDW 13.9 Plt Count 283 MPV 9.6 Sodium 141 Potassium 4.4 Chloride 105 Carbon Dioxide 30 Anion Gap 10 BUN 9 Creatinine 0.8 Est GFR ( Amer) > 60 Est GFR (Non-Af Amer) > 60 POC Glucose (mg/dL) 86 Random Glucose 100 Calcium 9.0 Total Bilirubin 0.9 AST 42 ALT 38 Alkaline Phosphatase 56 Troponin I < 0.01 Total Protein 7.0 Albumin 4.0 Globulin 3.0 Albumin/Globulin Ratio 1.3 Lipase 62 Attending/Attestation - Attestation I have personally seen and examined this patient.: Yes I have fully participated in the care of the patient.: Yes I have reviewed all pertinent clinical information: Yes Notes (Text): This is an addendum to GI followup report dictated by the [employer]. The patient was seen and evaluated earlier. Medical records, lab studies, imagings were reviewed. Last 24 hours events reviewed. Agreed with the above treatment plan as outlined in [employer] 's notes with the addition of the following This patient scheduled for EGD colonoscopy today was admitted through the ER for complaints of Left upper quadrant and epigastric and lower chest pain History of CAD Status post stent On aspirin and plavix He discontinued plavix a week ago Long history of EtOH use Stress test done, 6 weeks ago Negative as per the patient Patient did have colonoscopy last year Was found to have polyp which was not removed as the patient was on plavix with recent stent Patient took only one bottle of bowl prep On examination there was a mild tenderness in the upper left quadrant area Discussed with Dr. Norberto Ramos for EGD and colonoscopy as scheduled Order one tap water enema If clear will proceed with colonoscopy otherwise reschedule the procedure for tomorrow 11/23/17 23:28
--- NOTE | 2017-11-23 11:59 | CARD ---
APPROVED REPORT Date of service: 11/22/2017 EKG Measurement Heart [id number] <Conclusion> Normal sinus rhythm Normal ECG
[2017-11-23 17:59] VITALS: RESP 20
[2017-11-23] MEDS: Sodium Chloride 0.9% 1,000 ML IV SCH (18:17)
[2017-11-24 03:17] VITALS: O2SAT 96
[2017-11-24 06:49] VITALS: BP 117/75; PULSE 70; TEMP 97.8
[2017-11-24 07:17] LABS: MEAN CELL VOLUME 97.3 fl (80.0-105.0); MEAN CORPUSCULAR HEMOGLOBIN 32.3 pg (25.0-35.0); MEAN CORPUSCULAR HGB CONC 33.2 g/dl (31.0-37.0); RBC 4.03 10^6/uL (3.5-6.1); RED CELL DISTRIBUTION WIDTH 14.2 % (11.5-14.5); WHITE BLOOD COUNT 7.9 10^3/ul (4.5-11.0)
[2017-11-24 07:44] LABS: ALB/GLOB RATIO 1.3 (1.1-1.8); ALBUMIN 3.6 g/dL (3.0-4.8); ALT/SGPT 39 U/L (7-56); AST/SGOT 38 U/L (17-59); BLOOD UREA NITROGEN 14 mg/dL (7-21); CALCIUM 8.8 mg/dL (8.4-10.5); GFR NON-AFRICAN AMERICAN > 60
--- NOTE | 2017-11-24 08:39 | PN ---
SUBJECTIVE: The patient was seen and examined at bedside on the telemetry luz. No acute events overnight. He remains afebrile, hemodynamically stable and is doing well s/p EGD and colonoscopy. The findings of the procedure were extensively discussed with him by Dr. Verdugo and myself and the patient expressed understanding of his clinical condition. He is tolerating p.o. intake, feels well and is looking forward to discharge to home. OBJECTIVE: VITAL SIGNS: Temperature 97.8, pulse 57, blood pressure 117/75, respiratory rate 20, oxygen saturation 96% on room air. GENERAL: No apparent distress. HEENT: PERRL, EOMI. No scleral icterus. No conjunctival pallor. NECK: No JVD. No bruits. LUNGS: Clear to auscultation. CARDIOVASCULAR: Regular rate and rhythm. Normal S1, S2. ABDOMEN: Normoactive bowel sounds. Soft, nontender, nondistended. EXTREMITIES: No edema. NEUROLOGIC: Awake, alert and oriented x 3. No focal motor deficits. LABORATORY DATA: CBC reviewed and unremarkable. CMP pending. PROCEDURES: 1. EGD demonstrated a small hiatal hernia with reflux esophagitis, gastritis and multiple nonbleeding duodenal ulcers. 2. Colonoscopy demonstrated diverticulosis with internal hemorrhoids and small diminutive polyps and sessile polyps, which were biopsied. ASSESSMENT: The patient is a 57-year-old man with a past medical history of hypertension, CAD s/p PCI with stent placement and alcohol dependence who presented for evaluation of a several day history of left upper quadrant abdominal pain who is now s/p EGD and colonoscopy and is stable for discharge home. PLAN: 1. Erosive gastritis. Input from Dr. Verdugo noted and appreciated. Recommendations have been made for PPI therapy. 2. Duodenal ulcers. As above, input from Dr. Verdugo noted and greatly appreciated. Arrangements will be made for workup of Raul-Macdonald syndrome. The patient has been counseled on dietary modifications and the need to adhere to PPI therapy. 3. CAD s/p PCI with stent placement. The patient remains chest pain free. He will resume aspirin, Plavix and Lipitor upon discharge. 4. Hypertension. Blood pressure controlled. 5. Alcohol dependence. The patient has again been extensively counseled on the need for alcohol cessation. 6. Prophylaxis. Continue Pepcid for GI prophylaxis. DVT prophylaxis not indicated as the patient is ambulatory. CODE STATUS: Full code. Willy Thornton MD RAY
[2017-11-24] MEDS: Sodium Chloride 0.9% 1,000 ML IV SCH (09:18)
--- NOTE | 2017-11-25 00:05 | CP.PCM.PN ---
Subjective - Date & Time of Evaluation Date of Evaluation: 11/24/17 Time of Evaluation: 07:45 - Subjective Subjective: feeling better and was tolerating diet Objective - Vital Signs/Intake and Output Vital Signs (last 24 hours): Temp Pulse Resp BP Pulse Ox 97.8 F 70 20 117/75 96 11/24/17 06:00 11/24/17 06:00 11/24/17 06:00 11/24/17 06:00 11/24/17 06:00 - Labs Labs: 11/24/17 06:30 11/24/17 06:30 PT 10.3 SECONDS (9.4-12.5) 11/22/17 20:27 INR 0.91 11/22/17 20:27 APTT 26.9 Seconds (25.1-36.5) 11/22/17 20:27 - Constitutional Appears: Well, No Acute Distress - Head Exam Head Exam: ATRAUMATIC, NORMOCEPHALIC - Eye Exam Eye Exam: EOMI, PERRL - ENT Exam ENT Exam: Mucous Membranes Moist - Neck Exam Neck Exam: Full ROM. absent: Lymphadenopathy - Respiratory Exam Respiratory Exam: NORMAL BREATHING PATTERN. absent: Rales, Rhonchi - Cardiovascular Exam Cardiovascular Exam: REGULAR RHYTHM, +S1, +S2. absent: JVD - GI/Abdominal Exam GI & Abdominal Exam: Soft. absent: Tenderness, Mass - Extremities Exam Extremities Exam: Full ROM. absent: Calf Tenderness - Neurological Exam Neurological Exam: Alert, Oriented x3 Assessment and Plan - Assessment and Plan (Free Text) Assessment: this 57-year-old patient with coronary artery disease status post PCI on aspirin and Plavix was scheduled to have EGD and colonoscopy yesterday was admitted with atypical chest pain in the left upper quadrant pain Patient did have stress test done 6 weeks.ago and was negative Patient subsequently underwent EGD and colonoscopy EGD revealed multiple duodenal ulcers including ulcers in the descending duodenum and gastric ulcers and esophagitis Colonoscopy revealed a diverticulosis small colon polyps Patient has long history of EtOH Plan: 1. High-dose PPI patient has been taking Protonix 40 mg daily advised to take it twice a day for 5 days then reduce to once a day and take Zantac 150 milligrams at nighttime along with the Protonix 40 mg in a.m. 2.serum gastrin level to rule out ZE syndrome 3. Advised strictly to avoid alcohol 4. Follow-up colon polyps surveillance in 5 years 5. Can resume Plavix and low-dose aspirin 6. Advised medical follow-up with Dr. Willy Brown
[2017-11-26 01:14] LABS: GASTRIN 20 pg/mL (<=100)
== END 2017-11-24 11:34 | disposition home or self-care (01) ==
LOC: ED 19:44 → ERH 22:03 → 2RNO 23:55
PROVIDERS: ADMIT Student in an Organized Health Care Education/Training Program; ATTEND Student in an Organized Health Care Education/Training Program
DX: R07.89 Other chest pain (principal); E78.00 Pure hypercholesterolemia, unspecified; E78.5 Hyperlipidemia, unspecified; I10 Essential (primary) hypertension; I25.10 Atherosclerotic heart disease of native coronary artery without angina pectoris; J32.4 Chronic pansinusitis; J44.9 Chronic obstructive pulmonary disease, unspecified; K21.0 Gastro-esophageal reflux disease with esophagitis; Z87.11 Personal history of peptic ulcer disease; K26.9 Duodenal ulcer, unspecified as acute or chronic, without hemorrhage or perforation; K57.90 Diverticulosis of intestine, part unspecified, without perforation or abscess without bleeding; K64.8 Other hemorrhoids; D12.2 Benign neoplasm of ascending colon; D12.0 Benign neoplasm of cecum; K62.1 Rectal polyp; F10.20 Alcohol dependence, uncomplicated; N40.0 Benign prostatic hyperplasia without lower urinary tract symptoms; Z79.02 Long term (current) use of antithrombotics/antiplatelets; Z79.82 Long term (current) use of aspirin; Z80.8 Family history of malignant neoplasm of other organs or systems; Z86.73 Personal history of transient ischemic attack (TIA), and cerebral infarction without residual deficits; Z87.891 Personal history of nicotine dependence; Z95.5 Presence of coronary angioplasty implant and graft; K44.9 Diaphragmatic hernia without obstruction or gangrene; Z88.1 Allergy status to other antibiotic agents; Z88.3 Allergy status to other anti-infective agents; K29.60 Other gastritis without bleeding
CPT/HCPCS: 36415; 43239; 45380; 45385; 71045; 80053; 82550; 82941; 82948; 83615; 83690; 84484; 85027; 85610; 85730; 88305; 88342; 93005; 99285; G0378; J2704; J3010; J7030; J7040; J7042

== ENCOUNTER 2017-12-13 19:15 | Observation (INO) | payer MEDICARE, OTHER ==
[2017-12-13 19:53] LABS: MEAN CORPUSCULAR HEMOGLOBIN 32.2 pg (25.0-35.0); MEAN CORPUSCULAR HGB CONC 33.2 g/dl (31.0-37.0); MEAN PLATELET VOLUME 10.1 fl (7.0-11.0); RBC 4.04 10^6/uL (3.5-6.1); WHITE BLOOD COUNT 8.3 10^3/ul (4.5-11.0)
--- NOTE | 2017-12-13 19:57 | ED PDOC ---
Arrival/HPI - General Chief Complaint: Chest Pain Time Seen by Provider: 12/13/17 19:27 Historian: Patient - History of Present Illness Narrative History of Present Illness (Text): 12/13/17 19:27 57 year old male, with past medical history of CAD s/p PCI with cardiac stent placement, presents to the Emergency department complaining of intermittent left sided chest discomfort since past day. Patient informs associated mild disc omfort and paresthesia to the left arm. Patient denies any other associated somatic complaints. Patient denies any fevers, chills, headache, dizziness, shortness of breath, dyspnea on exertion, cough, abdominal pain, nausea, vomiting, diarrhea, back pain, neck pain, or any other complaints. Time/Duration: 24 hours Symptom Onset: Gradual Symptom Course: Unchanged Quality: Aching Activities at Onset: Light Context: Home Past Medical History - Provider Review Nursing Documentation Reviewed: Yes - Past History Past History: No Previous - Infectious Disease Hx of Infectious Diseases: None - Tetanus Immunization Tetanus Immunization: Up to Date - Cardiac Hx Cardiac Disorders: Yes Hx Hypertension: Yes - Pulmonary Hx Respiratory Disorders: No - Neurological Hx Neurological Disorder: No - HEENT Hx HEENT Disorder: No - Renal Hx Renal Disorder: No - Endocrine/Metabolic Hx Endocrine Disorders: No - Hematological/Oncological Hx Blood Transfusions: No Hx Blood Transfusion Reaction: No - Integumentary Hx Dermatological Disorder: No - Musculoskeletal/Rheumatological Hx Musculoskeletal Disorders: No Hx Falls: No - Gastrointestinal Hx Gastrointestinal Disorders: No - Genitourinary/Gynecological Hx Genitourinary Disorders: No - Psychiatric Hx Psychophysiologic Disorder: Yes Hx Anxiety: Yes Hx Depression: Yes Hx Substance Use: No - Past Surgical History Past Surgical History: No Previous - Surgical History Hx Coronary Stent: Yes (x5) - Anesthesia Hx Anesthesia: Yes Hx Anesthesia Reactions: No Hx Malignant Hyperthermia: No - Suicidal Assessment Feels Threatened In Home Enviroment: No Family/Social History - Physician Review Nursing Documentation Reviewed: Yes Family/Social History: No Known Family HX Smoking Status: Current Some Days Smoker Hx Alcohol Use: Yes Hx Substance Use: No Hx Substance Use Treatment: No Allergies/Home Meds Allergies/Adverse Reactions: Allergies ciprofloxacin Allergy (Severe, Verified 12/13/17 19:21) NUMBNESS levofloxacin [From Levaquin] Allergy (Verified 12/13/17 19:21) NUMBNESS metronidazole [From Flagyl] Allergy (Verified 12/13/17 19:21) SWELLING Home Medications: Home Meds Medication Instructions Recorded Confirmed Aspirin [Ecotrin] 81 mg PO DAILY 04/01/15 12/13/17 Atorvastatin [Lipitor] 40 mg PO DAILY 04/01/15 12/13/17 Clopidogrel [Plavix] 75 mg PO QAM 04/01/15 12/13/17 diaZEpam [Valium] 5 mg PO DAILY 03/18/17 12/13/17 Cholecalciferol (Vitamin D3) 1,000 unit PO DAILY 11/18/17 12/13/17 [Vitamin D3] Cyanocobalamin [Vitamin B12] 0 mcg PO DAILY 11/18/17 12/13/17 Folic Acid 1 mg PO DAILY 11/18/17 12/13/17 Review of Systems - Physician Review All systems were reviewed & negative as marked: Yes - Review of Systems Constitutional: absent: Fevers Respiratory: absent: SOB, Cough Cardiovascular: Chest Pain Gastrointestinal: absent: Abdominal Pain, Diarrhea, Nausea, Vomiting Musculoskeletal: absent: Back Pain, Neck Pain Neurological: absent: Headache, Dizziness Physical Exam Respiratory Rate: Normal Appearance: Positive for: Well-Appearing, Non-Toxic, Comfortable Pain Distress: None Mental Status: Positive for: Alert and Oriented X 3 - Systems Exam Head: Present: Atraumatic, Normocephalic Pupils: Present: PERRL Extroacular Muscles: Present: EOMI Conjunctiva: Present: Normal Mouth: Present: Moist Mucous Membranes Neck: Present: Normal Range of Motion Respiratory/Chest: Present: Clear to Auscultation, Good Air Exchange. No: Respiratory Distress, Accessory Muscle Use Cardiovascular: Present: Regular Rate and Rhythm, Normal S1, S2. No: Murmurs Abdomen: No: Tenderness, Distention, Peritoneal Signs Back: Present: Normal Inspection Upper Extremity: Present: Normal Inspection, Normal ROM, Neurovascularly Intact, Other (Radial pulse absent (secondary to old occlusion, good collateral flow in the ulnar artery).). No: Cyanosis, Edema Lower Extremity: Present: Normal Inspection. No: Edema Neurological: Present: GCS=15, CN II-XII Intact, Speech Normal Skin: Present: Warm, Dry, Normal Color. No: Rashes Psychiatric: Present: Alert, Oriented x 3, Normal Insight, Normal Concentration Medical Decision Making ED Course and Treatment: 12/13/17 19:27 Impression: 57 year old male presents to the Emergency department complaining of left sided chest discomfort with left arm discomfort. Plan: -- EKG -- Labs -- Chest X-ray -- Reassess and disposition Prior Visits: Notes and results from previous visits were reviewed. Progress Notes: 12/13/17 19:27 EKG: Ordered, reviewed, and independently interpreted the EKG. Rate : 64 BPM Rhythm : NSR Interpretation : No ST-segment elevations or depressions, no T-wave inversions, normal intervals. Comparison : No previous EKG for comparison. 12/13/17 19:50 Discussed case with interventionalist Dr. 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 Dr. Mcgregor was made aware of good flow and good capillary refill and states nothing needs to be done at this time. 12/13/17 22:03 Chest X-ray reviewed, shows no acute processes. 12/13/17 22:[address] Thornton, who requests pt go to hospitalist service. 12/13/17 22:59 Case discussed with medical representative tooth cutter pinion, who is aware and agrees with plan. 12/13/17 23:[address] Rebolledo, who is aware and agrees with plan. Accepts pt in to hospitalist service. Pt will go to Telemetry observation for chest pain. - Lab Interpretations I have reviewed the lab results: Yes - RAD Interpretation Radiology Orders: 12/13/17 19:27 CHEST PORTABLE [RAD] Stat Telecommunications Equipment Installer: ED Physician - EKG Interpretation Interpreted by ED Physician: Yes Type: 12 lead EKG - Scribe Statement The provider has reviewed the documentation as recorded by the Darcyibjerrod Jones. All medical record entries made by the Darcyibjerrod were at my direction and personally dictated by me. I have reviewed the chart and agree that the record accurately reflects my personal performance of the history, physical exam, medical decision making, and the department course for this patient. I have also personally directed, reviewed, and agree with the discharge instructions and disposition. Disposition/Present on Arrival - Present on Arrival Any Indicators Present on Arrival: No History of DVT/PE: No History of Uncontrolled Diabetes: No Urinary Catheter: No History of Decub. Ulcer: No History Surgical Site Infection Following: None - Disposition Have Diagnosis and Disposition been Completed?: Yes Diagnosis: Chest pain Disposition Time: 23:16 Patient Plan: Observation Patient Problems: Current Active Problems Problem Status Onset Chest pain Acute Condition: STABLE Discharge Instructions (ExitCare): Chest Pain (ED) Referrals: Norberto MENDOZA,Willy Smith MD [Primary Care Provider] - Follow up with primary Forms: [employer] (Bulgarian)
[2017-12-13 20:00] LABS: ALB/GLOB RATIO 1.3 (1.1-1.8); ALBUMIN 4.1 g/dL (3.0-4.8); ALT/SGPT 35 U/L (7-56); AST/SGOT 32 U/L (17-59); BLOOD UREA NITROGEN 14 mg/dL (7-21); CALCIUM 9.4 mg/dL (8.4-10.5); GFR NON-AFRICAN AMERICAN > 60
[2017-12-13 20:05] LABS: PARTIAL THROMBOPLASTIN TIME 29.4 Seconds (25.1-36.5); PROTHROMBIN TIME 11.4 SECONDS (9.4-12.5)
[2017-12-13 20:11] LABS: TROPONIN I < 0.01 ng/mL
--- NOTE | 2017-12-14 00:23 | CP.PCM.HP ---
<Luis Fernando Cavanaugh - Last Filed: 12/14/17 07:54> History of Present Illness - History of Present Illness History of Present Illness: Luis Fernando Mao DO PGY1 Internal Medicine Insulation Worker Interior Surface - Medicine H&P: CC: L arm discomfort + chest pain 57M w/ a PMH of Anxiety, COPD, Depression, Fractures (RIBS ,STERNUM), HTN, Hypercholesterolemia, Hyperlipidemia, CAD s/p 5 stents, gastric ulcer, renal cysts, BPH, hx of hepatic infiltration Presented to [facility] ED on 12/14 w/ a CC of L arm discomfort and associated substernal CP. Patient reports L arm discomfort however is unable to characterize the sensation of his L arm; He reports sudden onset beginning this afternoon following his appointment w/ neurologist Dr. Gee. He denies any focal weakness, numbness/tingling, altered sensation, burning pain, stabbing pain, dull pain in regards to his LUE. He does report his 2nd and 3rd digits of his left hand t urned white however denies any feelings of parasthesia or weakness in hand. He reports associated substernal chest pain which he described as sharp w/ associated palpitations however does not report any worsening w/ exertion or shortness of breath. Reports that the chest pain is intermittent; L upper extremity discomfort is constant. Of note ED contacted Dr. 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 Dr. Mcgregor was made aware of good flow and good capillary refill and states nothing needs to be done at this time. Remainder of 12 system ROS is negative at this time. PMD: Dr. Thornton PMH: As above PSH: Coronary stents x5 most recent 2.5 years ago, Lung Bx, Endoscopy FMH: Sister thyroid CA SocHx: Active 36 pack year hx, EtOH - Social, Illicit - Denies; Allergies: Ciprofloxacin, Levofloxacin, Metronidazole Home Rx: As per EMR Present on Admission - Present on Admission Any Indicators Present on Admission: No Review of Systems - Review of Systems All systems: reviewed and no additional remarkable complaints except Review of Systems: As per HPI Past Patient History - Infectious Disease Hx of Infectious Diseases: None - Tetanus Immunizations Tetanus Immunization: Up to Date - Past Medical History & Family History Past Medical History?: Yes - Past Social History Smoking Status: Current Some Days Smoker - CARDIAC Hx Cardiac Disorders: Yes Hx Hypertension: Yes - PULMONARY Hx Respiratory Disorders: No - NEUROLOGICAL Hx Neurological Disorder: No - HEENT Hx HEENT Problems: No - RENAL Hx Chronic Kidney Disease: No - ENDOCRINE/METABOLIC Hx Endocrine Disorders: No - HEMATOLOGICAL/ONCOLOGICAL Hx Blood Transfusions: No Hx Blood Transfusion Reaction: No - INTEGUMENTARY Hx Dermatological Problems: No - MUSCULOSKELETAL/RHEUMATOLOGICAL Hx Musculoskeletal Disorders: No Hx Falls: No - GASTROINTESTINAL Hx Gastrointestinal Disorders: No - GENITOURINARY/GYNECOLOGICAL Hx Genitourinary Disorders: No - PSYCHIATRIC Hx Psychophysiologic Disorder: Yes Hx Anxiety: Yes Hx Depression: Yes Hx Substance Use: No - SURGICAL HISTORY Hx Coronary Stent: Yes (x5) - ANESTHESIA Hx Anesthesia: Yes Hx Anesthesia Reactions: No Hx Malignant Hyperthermia: No Meds Allergies/Adverse Reactions: Allergies Allergy/AdvReac Type Severity Reaction Status Date / Time ciprofloxacin Allergy Severe NUMBNESS Verified 12/13/17 19:21 levofloxacin [From Levaquin] Allergy NUMBNESS Verified 12/13/17 19:21 metronidazole [From Flagyl] Allergy SWELLING Verified 12/13/17 19:21 Physical Exam - Constitutional Appears: Well, Non-toxic, No Acute Distress - Head Exam Head Exam: ATRAUMATIC, NORMAL INSPECTION, NORMOCEPHALIC - Eye Exam Eye Exam: EOMI, Normal appearance Pupil Exam: Unequal (L pupil dilated relative to right; patient reports this is chronic ) - ENT Exam ENT Exam: Mucous Membranes Moist Additional comments: Abnormal dentition - Neck Exam Neck exam: Positive for: Normal Inspection - Respiratory Exam Respiratory Exam: Clear to Auscultation Bilateral, NORMAL BREATHING PATTERN. absent: Rales, Rhonchi, Wheezes, Respiratory Distress - Cardiovascular Exam Cardiovascular Exam: REGULAR RHYTHM, RRR, +S1, +S2 - GI/Abdominal Exam GI & Abdominal Exam: Normal Bowel Sounds, Soft. absent: Tenderness - Extremities Exam Additional comments: LUE and RUE are both equal no appreciable edema noticed in either arm Radial pulse in LUE is diminished RUE and LUE demonstrate equal ROM Both appear to be neurovascularly intact Cap refill in both hands are equal. - Back Exam Back exam: absent: CVA tenderness (L), CVA tenderness (R) - Neurological Exam Neurological exam: Alert, CN II-XII Intact, Normal Gait, Oriented x3 Additional comments: RUE, LUE, RLE, LLE all demonstrate 5/5 gross strength; All demonstrate intact sensation - Psychiatric Exam Psychiatric exam: Normal Affect, Normal Mood - Skin Skin Exam: Dry, Intact, Normal Color, Warm Results - Vital Signs Recent Vital Signs: Last Vital Signs Temp 98.2 F 12/13/17 19:59 Pulse 60 12/13/17 23:00 Resp 18 12/13/17 23:00 BP 133/75 12/13/17 23:00 Pulse Ox 98 12/13/17 23:00 - Labs Result Diagrams: 12/14/17 03:10 12/14/17 03:10 Labs: Laboratory Results - last 24 hr 12/13/17 12/13/17 12/13/17 19:43 19:43 19:43 WBC 8.3 RBC 4.04 Hgb 13.0 L Hct 39.2 L MCV 97.0 MCH 32.2 MCHC 33.2 RDW 13.0 Plt Count 266 MPV 10.1 PT 11.4 INR 1.00 APTT 29.4 Sodium 139 Potassium 3.9 Chloride 103 Carbon Dioxide 28 Anion Gap 12 BUN 14 Creatinine 0.9 Est GFR ( Amer) > 60 Est GFR (Non-Af Amer) > 60 Random Glucose 119 H Calcium 9.4 Total Bilirubin 0.4 AST 32 ALT 35 Alkaline Phosphatase 51 Lactate Dehydrogenase 322 L Total Creatine Kinase 111 Troponin I < 0.01 Total Protein 7.1 Albumin 4.1 Globulin 3.1 Albumin/Globulin Ratio 1.3 Assessment & Plan - Assessment and Plan (Free Text) Assessment: 57M w/ a PMH of Anxiety, COPD, Depression, Fractures (RIBS ,STERNUM), HTN, Hypercholesterolemia, Hyperlipidemia, CAD s/p 5 stents, gastric ulcer, renal cysts, BPH, hx of hepatic infiltration; Presented to [facility] ED on 12/14 w/ a CC of L arm discomfort and associated substernal CP. Patient is to be admitted for ACS r/o and evaluation of LUE 'discomfort'. PLAN: ACS R/O: PMHx CAD s/p x5 cardiac stents Exercise stress test performed 10/01/17 reported as equivocal EST; chest pain w/o EKG changes; Nuclear results still pending Echo 02/2017 - Found to have EF 52.5%; Grade I abnormal relaxation pattern EKG upon adm - NSR w/o any ST/T wave abnormalities F/u AM EKG Trend troponin x3 - 1st troponin negative F/u Lipid Panel + A1C Patient reports he cannot take ASA81 2/2 gastritis? During recent admission GI consulted recommended patient can resume plavix + low dose ASA. Will c/w ASA81 Will c/w Plavix 75 QD C/w home Lipitor 40 QD Consult Cardiology - Dr. Ino GARNER Discomfort LUE upon examination is neurovascularly intact at this time; concerns for cold limb or focal deficits are less likely IR Dr. Mcgregor was contacted and recommended no intervention Upper extremity wrist brachial index from 12/10/17 reported as relatively normal wrist brahcial indicies Duplex arterial u/s of LUE on 12/10/17 reported as distal Left artery occlusion w/ patent Ulnar artery Patient was offered tylenol for LUE 'pain' however refused because "I have a history of ulcers" If symptoms worsen or progress can consider repeat imaging Recent Dx of duodenal ulcers, Gastric Ulcers, Esophagitis: EGD and Colonoscopy performed on 11/23/17 During recent admission; As per Recent GI Note Zantac 150 milligrams at nighttime along with the Protonix 40 mg in a.m. Zantac not on formulary; Start Pepcid 40 HS Protonix 40 Daily Hx COPD: No wheezing; Start duonebs PRN C/w Home advair Hx HLD: Lipitor 40 QD F/u AM lipid panel Patient was seen, examined, and discussed w/ attending Dr. Kesha Cavanaugh DO PGY1 Internal Medicine Insulation Worker Interior Surface - Date & Time Date: 12/14/17 Time: 07:54 <Clement Rebolledo - Last Filed: 12/16/17 23:05> Results - Vital Signs Recent Vital Signs: Last Vital Signs Temp 97.7 F 12/14/17 12:00 Pulse 73 12/14/17 14:00 Resp 19 12/14/17 12:00 BP 121/58 L 12/14/17 12:00 Pulse Ox 97 12/14/17 06:50 - Labs Result Diagrams: 12/14/17 03:10 12/14/17 03:10 Attending/Attestation - Attestation I have personally seen and examined this patient.: Yes I have fully participated in the care of the patient.: Yes I have reviewed all pertinent clinical information: Yes
[2017-12-14 03:36] LABS: ALB/GLOB RATIO 1.3 (1.1-1.8); ALBUMIN 3.9 g/dL (3.0-4.8); ALT/SGPT 32 U/L (7-56); AST/SGOT 30 U/L (17-59); BLOOD UREA NITROGEN 12 mg/dL (7-21); CALCIUM 9.4 mg/dL (8.4-10.5); GFR NON-AFRICAN AMERICAN > 60; HDL CHOLESTEROL 30 mg/dL (29-60)
[2017-12-14 03:37] LABS: BASO # 0.04 K/mm3 (0.0-2.0); BASO % 0.5 % (0.0-3.0); EOS # 0.3 (0.0-0.7); EOS % 4.1 % (1.5-5.0); GRAN # 4.64 (1.4-6.5); GRAN % 58.4 % (50.0-68.0); HEMOGLOBIN 13.8 g/dL (14.0-18.0); LYMPH # 2.4 (1.2-3.4); MEAN CELL VOLUME 97.2 fl (80.0-105.0); MEAN CORPUSCULAR HEMOGLOBIN 32.7 pg (25.0-35.0); MEAN CORPUSCULAR HGB CONC 33.7 g/dl (31.0-37.0); MEAN PLATELET VOLUME 10.3 fl (7.0-11.0); MONO # 0.6 (0.1-0.6); RBC 4.22 10^6/uL (3.5-6.1); RED CELL DISTRIBUTION WIDTH 13.1 % (11.5-14.5)
[2017-12-14 03:47] LABS: LDL CHOLESTEROL 80 mg/dL (0-129); TROPONIN I < 0.01 ng/mL
[2017-12-14] MEDS ORDERED: Pantoprazole 40 mg EC Tab PO SCH (06:00)
[2017-12-14 06:51] VITALS: O2SAT 97
[2017-12-14] MEDS ORDERED: Arformoterol 15 mcg/2 ml Inh Sol IH SCH ×2 (08:00)
[2017-12-14] MEDS ORDERED: Budesonide 0.5 mg/2 ml Inhal Susp UD IH SCH (08:00)
--- NOTE | 2017-12-14 09:54 | RAD ---
Date of service: 12/13/2017 HISTORY: chest pain COMPARISON: Portable chest 11/22/2017. FINDINGS: LUNGS: No active pulmonary disease. PLEURA: No significant pleural effusion identified, no pneumothorax apparent. CARDIOVASCULAR: No aortic atherosclerotic calcification present OSSEOUS STRUCTURES: No significant abnormalities. VISUALIZED UPPER ABDOMEN: Normal. OTHER FINDINGS: None. IMPRESSION: No interval acute cardiopulmonary disease appreciated.
[2017-12-14] MEDS ORDERED: Cholecalciferol 1,000 INTLU TAB PO SCH (10:00)
--- NOTE | 2017-12-14 10:16 | CARD ---
APPROVED REPORT Date of service: 12/13/2017 EKG Measurement Heart [id number] <Conclusion> Normal sinus rhythm Normal ECG No change
--- NOTE | 2017-12-14 10:36 | CARD ---
APPROVED REPORT Date of service: 12/14/2017 EKG Measurement Heart [id number] <Conclusion> Sinus bradycardia Otherwise normal ECG No change
[2017-12-14 14:34] VITALS: BP 121/58; RESP 19; TEMP 97.7
--- NOTE | 2017-12-14 16:29 | CP.PCM.DIS ---
<Angel Knutson - Last Filed: 12/14/17 17:39> Provider - Provider Date of Admission: 12/13/17 23:16 Attending physician: Neno Kebede MD Primary care physician: Willy Thornton MD Time Spent in preparation of Discharge (in minutes): 40 Hospital Course - Lab Results Lab Results: Most Recent Lab Values WBC 8.0 10^3/ul (4.5-11.0) 12/14/17 03:10 RBC 4.22 10^6/uL (3.5-6.1) 12/14/17 03:10 Hgb 13.8 g/dL (14.0-18.0) L 12/14/17 03:10 Hct 41.0 % (42.0-52.0) L 12/14/17 03:10 MCV 97.2 fl (80.0-105.0) 12/14/17 03:10 MCH 32.7 pg (25.0-35.0) 12/14/17 03:10 MCHC 33.7 g/dl (31.0-37.0) 12/14/17 03:10 RDW 13.1 % (11.5-14.5) 12/14/17 03:10 Plt Count 280 10^3/uL (120.0-450.0) 12/14/17 03:10 MPV 10.3 fl (7.0-11.0) 12/14/17 03:10 Gran % 58.4 % (50.0-68.0) 12/14/17 03:10 Lymph % (Auto) 30.0 % (22.0-35.0) 12/14/17 03:10 [place] % (Auto) 7.0 % (1.0-6.0) H 12/14/17 03:10 Eos % (Auto) 4.1 % (1.5-5.0) 12/14/17 03:10 Baso % (Auto) 0.5 % (0.0-3.0) 12/14/17 03:10 Gran # 4.64 (1.4-6.5) 12/14/17 03:10 Lymph # (Auto) 2.4 (1.2-3.4) 12/14/17 03:10 [place] # (Auto) 0.6 (0.1-0.6) 12/14/17 03:10 Eos # (Auto) 0.3 (0.0-0.7) 12/14/17 03:10 Baso # (Auto) 0.04 K/mm3 (0.0-2.0) 12/14/17 03:10 PT 11.4 SECONDS (9.4-12.5) 12/13/17 19:43 INR 1.00 12/13/17 19:43 APTT 29.4 Seconds (25.1-36.5) 12/13/17 19:43 Sodium 141 mmol/L (132-148) 12/14/17 03:10 Potassium 4.1 mmol/L (3.6-5.0) 12/14/17 03:10 Chloride 105 mmol/L (98-107) 12/14/17 03:10 Carbon Dioxide 28 mmol/L (21-33) 12/14/17 03:10 Anion Gap 11 (10-20) 12/14/17 03:10 BUN 12 mg/dL (7-21) 12/14/17 03:10 Creatinine 0.9 mg/dl (0.8-1.5) 12/14/17 03:10 Est GFR ( Amer) > 60 12/14/17 03:10 Est GFR (Non-Af Amer) > 60 12/14/17 03:10 Random Glucose 91 mg/dL (70-110) 12/14/17 03:10 Hemoglobin A1c 5.4 % (4.2-6.5) 12/14/17 03:10 Calcium 9.4 mg/dL (8.4-10.5) 12/14/17 03:10 Phosphorus 4.4 mg/dL (2.5-4.5) 12/14/17 03:10 Magnesium 2.0 mg/dL (1.7-2.2) 12/14/17 03:10 Total Bilirubin 0.5 mg/dL (0.2-1.3) 12/14/17 03:10 AST 30 U/L (17-59) 12/14/17 03:10 ALT 32 U/L (7-56) 12/14/17 03:10 Alkaline Phosphatase 46 U/L (38-126) 12/14/17 03:10 Lactate Dehydrogenase 322 U/L (333-699) L 12/13/17 19:43 Total Creatine Kinase 111 U/L (35-230) 12/13/17 19:43 Troponin I < 0.01 ng/mL 12/14/17 08:30 Total Protein 6.9 g/dL (5.8-8.3) 12/14/17 03:10 Albumin 3.9 g/dL (3.0-4.8) 12/14/17 03:10 Globulin 3.0 gm/dL 12/14/17 03:10 Albumin/Globulin Ratio 1.3 (1.1-1.8) 12/14/17 03:10 Triglycerides 73 mg/dL (35-160) 12/14/17 03:10 Cholesterol 116 mg/dL (130-200) L 12/14/17 03:10 LDL Cholesterol Direct 80 mg/dL (0-129) 12/14/17 03:10 HDL Cholesterol 30 mg/dL (29-60) 12/14/17 03:10 - Hospital Course Hospital Course: HPI: Mr. Whitt is a 57 year old male with a past medical history of anxiety, COPD, depression, fractures (ribs ,sternum), hypertension, hyperchol esterolemia, hyperlipidemia, coronary artery disease status-post 5 stents, gastric ulcer, renal cysts, benign prostatic hyperplasia, history of hepatic infiltration [place] [facility] [place] with a chief complaint of L arm discomfort and associated substernal CP. Patient reports L arm discomfort however is unable to characterize the sensation of his L arm; He reports sudden onset beginning this afternoon following his appointment w/ neurologist Dr. Gee. He denies any focal weakness, numbness/tingling, altered sensation, burning pain, stabbing pain, dull pain in regards to his LUE. He does report his 2nd and 3rd digits of his left hand turned white however denies any feelings of parasthesia or weakness in hand. He reports associated substernal chest pain which he described as sharp w/ associated palpitations however does not report any worsening w/ exertion or shortness of breath. Reports that the chest pain is intermittent; L upper extremity discomfort is constant. Of note ED contacted Dr. 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 Dr. Mcgregor was made aware of good flow and good capillary refill and states nothing needs to be done at this time. Hospital Course: On admission, patient was worked up for rule-out of acute coronary syndrome. Serial troponins x 3 were all within normal limited. Initial EKG demonstrated normal sinus rhythm with no evidence of STEMI. Repeat EKG demonstrated sinus bradycardia at 50 bpm, no evidence of STEMI. Chest XR demonstrated no active disease. Cardiology (Dr. Mckinnon) was consulted. Results from previous stress test on 10/01/2017 and echocardiogram on 02/2017 were reviewed, with patient found to have recent ejection fraction of 15%. No acute intervention was recommended at this time, as per Dr. Sierra covering for Dr. Mckinnon. Patient is instructed to follow up with cardiology outpatient as well as follow up outpatient for thyroid panel ordered by Dr. Sierra. Interventional Radiology (Dr. Greg Mcgregor) was consulted and no intervention was recommended at this time with repeat imaging recommended if symptoms worsen. Upper extremity wrist brachial index and duplex ultrasound of the left upper extremity from 12/10/2017 were reviewed. Upper extremity wrist brachial index resulted as relatively normal wrist brachial indices. Duplex arterial ultrasound of the left upper extremity demonstrated distal left artery occlusion with patent ulnar artery. Patient is medically stable to be discharged home, as per Dr. Kebede. Please follow up with your primary care provider (Dr. Thornton) within 1 week of discharge for follow up care as well as outpatient follow up of thyroid panel. Please also follow up with your executive marketing assistant (Dr. Mckinnon) within 1 week of discharge. Please follow up with Dr. Greg Mcgregor, as scheduled. Patient is instructed to continue all home medications as currently prescribed. Scripts have been provided, as needed. Patient made aware of plans and agrees with all of the above. Please return to the ED if symptoms worsen. - Date & Time of H&P Date of H&P: 12/14/17 Time of H&P: 16:30 Discharge Exam - Head Exam Head Exam: ATRAUMATIC, NORMAL INSPECTION, NORMOCEPHALIC - Eye Exam Eye Exam: EOMI, Normal appearance, PERRL Pupil Exam: NORMAL ACCOMODATION - ENT Exam ENT Exam: Mucous Membranes Moist, Normal Exam - Neck Exam Neck exam: Full Rom - Respiratory Exam Respiratory Exam: Clear to PA & Lateral, NORMAL BREATHING PATTERN, UNREMARKABLE. absent: Rales, Rhonchi, Wheezes, Respiratory Distress, Stridor - Cardiovascular Exam Cardiovascular Exam: REGULAR RHYTHM, +S1, +S2 - GI/Abdominal Exam GI & Abdominal Exam: Normal Bowel Sounds, Soft, Unremarkable. absent: Distended, Firm, Guarding, Organomegaly, Rebound, Rigid, Tenderness - Extremities Exam Extremities exam: full ROM, normal capillary refill, pedal pulses present Additional comments: LUE and RUE are both equal no appreciable edema noticed in either arm Radial pulse in LUE is diminished RUE and LUE demonstrate equal ROM Both appear to be neurovascularly intact Cap refill in both hands are equal. - Back Exam Back exam: NORMAL INSPECTION - Neurological Exam Neurological exam: Alert, CN II-XII Intact, Normal Gait, Oriented x3, Reflexes Normal Additional comments: RUE, LUE, RLE, LLE all demonstrate 5/5 gross strength; All demonstrate intact sensation. - Psychiatric Exam Psychiatric exam: Normal Affect, Normal Mood - Skin Skin Exam: Dry, Intact, Normal Color, Warm Discharge Plan - Discharge Medications Prescriptions: Albuterol HFA [Ventolin HFA 90 mcg/actuation (8 g)] 1 puff IH Q6H PRN #1 inhaler PRN Reason: Wheezing Aspirin [Ecotrin] 81 mg PO DAILY #30 tabec Atorvastatin [Lipitor] 40 mg PO DAILY #30 tab Cholecalciferol (Vitamin D3) [Vitamin D3] 1,000 unit PO DAILY #30 tab.chew Clopidogrel [Plavix] 75 mg PO QAM #30 tab Cyanocobalamin [Vitamin B12] 500 mcg PO DAILY #30 tab Fluticasone/Salmeterol 250/50 [Advair Diskus 250/50] 1 puff IH BID #1 puff Folic Acid 1 mg PO DAILY #30 tab Gabapentin [Neurontin] 100 mg PO BID #60 capsule - Follow Up Plan Condition: STABLE Disposition: HOME/ ROUTINE Additional Instructions: Patient is medically stable to be discharged home, as per Dr. Kebede. Please follow up with your primary care provider (Dr. Thornton) within 1 week of discharge for follow up care as well as outpatient follow up of thyroid panel. Please also follow up with your executive marketing assistant (Dr. Mckinnon) within 1 week of discharge. Please follow up with Dr. Greg Mcgregor, as scheduled. Patient is instructed to continue all home medications as currently prescribed. Scripts have been provided, as needed. Patient made aware of plans and agrees with all of the above. Please return to the ED if symptoms worsen. Referrals: Norberto MENDOZA,Willy Smith MD [Primary Care Provider] - Greg Mckinnon MD [Staff Provider] - Greg Mcgregor MD [Staff Provider] - <Neno Kebede - Last Filed: 12/14/17 18:21> Provider - Provider Date of Admission: 12/13/17 23:16 Attending physician: Neno Kebede MD Primary care physician: Willy Thornton MD Hospital Course - Lab Results Lab Results: Most Recent Lab Values WBC 8.0 10^3/ul (4.5-11.0) 12/14/17 03:10 RBC 4.22 10^6/uL (3.5-6.1) 12/14/17 03:10 Hgb 13.8 g/dL (14.0-18.0) L 12/14/17 03:10 Hct 41.0 % (42.0-52.0) L 12/14/17 03:10 MCV 97.2 fl (80.0-105.0) 12/14/17 03:10 MCH 32.7 pg (25.0-35.0) 12/14/17 03:10 MCHC 33.7 g/dl (31.0-37.0) 12/14/17 03:10 RDW 13.1 % (11.5-14.5) 12/14/17 03:10 Plt Count 280 10^3/uL (120.0-450.0) 12/14/17 03:10 MPV 10.3 fl (7.0-11.0) 12/14/17 03:10 Gran % 58.4 % (50.0-68.0) 12/14/17 03:10 Lymph % (Auto) 30.0 % (22.0-35.0) 12/14/17 03:10 [place] % (Auto) 7.0 % (1.0-6.0) H 12/14/17 03:10 Eos % (Auto) 4.1 % (1.5-5.0) 12/14/17 03:10 Baso % (Auto) 0.5 % (0.0-3.0) 12/14/17 03:10 Gran # 4.64 (1.4-6.5) 12/14/17 03:10 Lymph # (Auto) 2.4 (1.2-3.4) 12/14/17 03:10 [place] # (Auto) 0.6 (0.1-0.6) 12/14/17 03:10 Eos # (Auto) 0.3 (0.0-0.7) 12/14/17 03:10 Baso # (Auto) 0.04 K/mm3 (0.0-2.0) 12/14/17 03:10 PT 11.4 SECONDS (9.4-12.5) 12/13/17 19:43 INR 1.00 12/13/17 19:43 APTT 29.4 Seconds (25.1-36.5) 12/13/17 19:43 Sodium 141 mmol/L (132-148) 12/14/17 03:10 Potassium 4.1 mmol/L (3.6-5.0) 12/14/17 03:10 Chloride 105 mmol/L (98-107) 12/14/17 03:10 Carbon Dioxide 28 mmol/L (21-33) 12/14/17 03:10 Anion Gap 11 (10-20) 12/14/17 03:10 BUN 12 mg/dL (7-21) 12/14/17 03:10 Creatinine 0.9 mg/dl (0.8-1.5) 12/14/17 03:10 Est GFR ( Amer) > 60 12/14/17 03:10 Est GFR (Non-Af Amer) > 60 12/14/17 03:10 Random Glucose 91 mg/dL (70-110) 12/14/17 03:10 Hemoglobin A1c 5.4 % (4.2-6.5) 12/14/17 03:10 Calcium 9.4 mg/dL (8.4-10.5) 12/14/17 03:10 Phosphorus 4.4 mg/dL (2.5-4.5) 12/14/17 03:10 Magnesium 2.0 mg/dL (1.7-2.2) 12/14/17 03:10 Total Bilirubin 0.5 mg/dL (0.2-1.3) 12/14/17 03:10 AST 30 U/L (17-59) 12/14/17 03:10 ALT 32 U/L (7-56) 12/14/17 03:10 Alkaline Phosphatase 46 U/L (38-126) 12/14/17 03:10 Lactate Dehydrogenase 322 U/L (333-699) L 12/13/17 19:43 Total Creatine Kinase 111 U/L (35-230) 12/13/17 19:43 Troponin I < 0.01 ng/mL 12/14/17 08:30 Total Protein 6.9 g/dL (5.8-8.3) 12/14/17 03:10 Albumin 3.9 g/dL (3.0-4.8) 12/14/17 03:10 Globulin 3.0 gm/dL 12/14/17 03:10 Albumin/Globulin Ratio 1.3 (1.1-1.8) 12/14/17 03:10 Triglycerides 73 mg/dL (35-160) 12/14/17 03:10 Cholesterol 116 mg/dL (130-200) L 12/14/17 03:10 LDL Cholesterol Direct 80 mg/dL (0-129) 12/14/17 03:10 HDL Cholesterol 30 mg/dL (29-60) 12/14/17 03:10 Urine Color Straw (YELLOW) 12/14/17 17:25 Urine Appearance Clear (CLEAR) 12/14/17 17:25 Urine pH 6.5 (4.7-8.0) 12/14/17 17:25 Ur Specific [place] <= 1.005 (1.005-1.035) 12/14/17 17:25 Urine Protein Negative mg/dL (<30 mg/dL) 12/14/17 17:25 Urine Glucose (UA) Negative mg/dL (NEGATIVE) 12/14/17 17:25 Urine Ketones Negative mg/dL (NEGATIVE) 12/14/17 17:25 Urine Blood Negative (NEGATIVE) 12/14/17 17:25 Urine Nitrate Negative (NEGATIVE) 12/14/17 17:25 Urine Bilirubin Negative (NEGATIVE) 12/14/17 17:25 Urine Urobilinogen 0.2 E.U./dL (<1 E.U./dL) 12/14/17 17:25 Ur Leukocyte Esterase Negative Augie/uL (NEGATIVE) 12/14/17 17:25 Urine Opiates Screen Negative (NEGATIVE) 12/14/17 17:25 Urine Methadone Screen Negative (NEGATIVE) 12/14/17 17:25 Ur Barbiturates Screen Negative (NEGATIVE) 12/14/17 17:25 Ur Phencyclidine Scrn No result (NEGATIVE) 12/14/17 17:25 Ur Amphetamines Screen Negative (NEGATIVE) 12/14/17 17:25 U Benzodiazepines Scrn Positive (NEGATIVE) H 12/14/17 17:25 U Oth Cocaine Metabols Negative (NEGATIVE) 12/14/17 17:25 U Cannabinoids Screen No result (NEGATIVE) 12/14/17 17:25 Attending/Attestation - Attestation I have personally seen and examined this patient.: Yes I have fully participated in the care of the patient.: Yes I have reviewed all pertinent clinical information, including history, physical exam and plan: Yes Notes (Text): 12/14/17 18:17 57 year old male with past medical history of hypertension, dyslipidemia, CAD s/p stents, gastric ulcer and anxiety who presented with complaint of intermittent chest pain and left arm pain. Serial cardiac enzymes were negative and ACS was ruled out. His symptoms improved. He was seen by cardiology who recommended outpatient follow up. Patient is discharged home to follow up with his pmd and executive marketing assistant. Follow up with IR and neurologist as well. Neno Kebede MD Hospitalist.
[2017-12-14 16:59] VITALS: PULSE 73
[2017-12-14 17:33] LABS: PH,URINE 6.5 (4.7-8.0); URINE BILIRUBIN NEGATIVE (NEGATIVE); URINE BLOOD NEGATIVE (NEGATIVE); URINE GLUCOSE (UA) NEGATIVE (NEGATIVE); URINE LEUKOCYTE ESTERASE NEGATIVE Leu/uL (NEGATIVE); URINE PROTEIN NEGATIVE mg/dL (<30 mg/dL); URINE UROBILINOGEN 0.2 E.U./dL (<1 E.U./dL)
[2017-12-14 17:38] LABS: URINE APPEARANCE CLEAR (CLEAR); URINE COLOR STRAW (YELLOW)
[2017-12-14 18:00] LABS: BARBITURATES, UR NEGATIVE (NEGATIVE); BENZODIAZEPINES, UR POSITIVE (NEGATIVE); OPIATES, UR NEGATIVE (NEGATIVE)
[2017-12-14 18:22] LABS: PHENCYCLIDINE, UR NEGATIVE (NEGATIVE)
--- NOTE | 2017-12-15 00:19 | CON ---
DATE: 12/14/2017 REASON FOR CONSULTATION: Chest discomfort. HISTORY OF PRESENT ILLNESS: Although the patient was reported to have of left-sided chest pain, he did report to me that his main condition besides the discomfort in the left subclavicular area he is experiencing some . The patient did report a history of stroke in the past but without any residual neurological deficit. The patient has a history of coronary artery disease and, according to him, the last stent was 2-1/2 years ago. The patient denies any radiation of his chest discomfort. Although he reported a history of palpitation and there is no reported arrhythmia, denies any history of history of atrial fibrillation. SOCIAL HISTORY: The patient is a smoker. He is an occasional drinker. MEDICATIONS: Brovana 15 mcg inhalation every 12 hours, aspirin 81 mg once a day, folic acid 1 mg once a day, Lipitor 40 mg once a day, Plavix 75 mg once a day, Protonix 40 mg once a day, Pulmicort 0.5 mg inhalation every 12 hours. REVIEW OF SYSTEMS: No fever or chills. No syncope. The patient did report palpitation. No vomiting or diarrhea. PHYSICAL EXAMINATION: GENERAL: The patient is a middle-aged male who does not appear to be in acute distress. VITAL SIGNS: Blood pressure 93/57, heart rate 60, temperature 97.8, respirations 20. HEENT: Normocephalic. CHEST: Clear. HEART: S1 and S2, regular. EXTREMITIES: No edema. No calf tenderness. LABORATORY DATA: Three sets of troponins are negative. SMA-7 today is entirely within normal limit. Lipid profile is within normal limits except for a total cholesterol of 116, below normal. PT, PTT and INR are within normal limits. Hemoglobin and hematocrit of 13.8 and 41, white count and platelet count are within normal limits. EKG revealed sinus bradycardia at a rate of 50, otherwise normal EKG. Echocardiographic study in 02/2017 revealed normal ejection fraction and grade I abnormal relaxation pattern. The most recent stress test was performed in 09/2017, which revealed equivalent exercise stress test, chest pain without EKG changes. Although it was reported that nuclear results are pending, there was no nuclear imaging report available. ASSESSMENT: 1. Atypical chest pain. Myocardial infarction is ruled out. 2. Sinus bradycardia. 3. Chronic obstructive lung disease. RECOMMENDATIONS: Continue aspirin and Plavix therapy. Continue Lipitor at 40 mg once a day, folic acid 1 mg once a day, Pulmicort 0.5 mg inhalation every 12 hours. Obtain TSH level as well as urine for drug screen. Jaun Sierra MD
== END 2017-12-14 19:11 | disposition home or self-care (01) ==
LOC: ED 19:15 → ERH 23:16 → 2RNO 12-14 06:33
PROVIDERS: ADMIT Internal Medicine; ATTEND Internal Medicine
DX: R07.89 Other chest pain (principal); M79.602 Pain in left arm; I10 Essential (primary) hypertension; J44.9 Chronic obstructive pulmonary disease, unspecified; E78.00 Pure hypercholesterolemia, unspecified; I25.10 Atherosclerotic heart disease of native coronary artery without angina pectoris; F41.9 Anxiety disorder, unspecified; F17.200 Nicotine dependence, unspecified, uncomplicated; R00.1 Bradycardia, unspecified; N40.0 Benign prostatic hyperplasia without lower urinary tract symptoms; N28.1 Cyst of kidney, acquired; F32.9 Major depressive disorder, single episode, unspecified; I70.8 Atherosclerosis of other arteries; E78.5 Hyperlipidemia, unspecified; K25.9 Gastric ulcer, unspecified as acute or chronic, without hemorrhage or perforation; Z95.5 Presence of coronary angioplasty implant and graft; Z79.02 Long term (current) use of antithrombotics/antiplatelets; Z86.73 Personal history of transient ischemic attack (TIA), and cerebral infarction without residual deficits; Z79.82 Long term (current) use of aspirin
CPT/HCPCS: 36415; 71045; 80053; 80061; 81003; 82550; 83036; 83615; 83735; 84100; 84484; 85025; 85027; 85610; 85730; 93005; 94640; 99285; G0378; G0480

== ENCOUNTER 2017-12-24 12:14 | Emergency (ER) | payer MEDICARE ==
[2017-12-24 12:31] VITALS: RESP 18
--- NOTE | 2017-12-24 12:44 | ED PDOC ---
Arrival/HPI - General Chief Complaint: Weakness/Neurological Deficit Time Seen by Provider: 12/24/17 12:17 Historian: Patient - History of Present Illness Time/Duration: Other (18 months) Symptom Onset: Gradual Symptom Course: Unchanged Associated Symptoms (Text): 12/24/17 12:40 Patient complains of a 1-1/2 year history of generalized weakness and fatigue. He states that on a daily basis he is dizzy and near syncopal. He has had MRI and MRA in February of this year along with carotid ultrasound. He continues to smoke. He states he stopped drinking one month ago. He has 2 admissions to the hospital in November of this year with negative workups. He reports that he wants to go to a different hospital, he wants a different primary caregiver. He wants pictures of his brain. And his examination is unremarkable. Past Medical History - Past History Past History: No Previous - Infectious Disease Hx of Infectious Diseases: None - Tetanus Immunization Tetanus Immunization: Up to Date - Cardiac Hx Cardiac Disorders: Yes Hx Hypertension: Yes - Pulmonary Hx Respiratory Disorders: Yes Hx Chronic Obstructive Pulmonary Disease (COPD): No - Neurological Hx Neurological Disorder: Yes Hx Transient Ischemic Attacks (TIA): Yes - HEENT Hx HEENT Disorder: No - Renal Hx Renal Disorder: No Hx Dialysis: No Hx Kidney Stones: No Hx Neurogenic Bladder: No Hx Pyelonephritis: No Hx Renal Cancer: No Hx Renal Failure: No Other/Comment: Renal cyst, BPH - Endocrine/Metabolic Hx Endocrine Disorders: No Hx Adrenal Cancer: No Hx Diabetes Insipidus: No Hx Diabetes Mellitus Type 1: No Hx Diabetes Mellitus Type 2: No Hx Hyperthyroidism: No Hx Hypothyroidism: No Hx Systemic Lupus Erythematosus: No - Hematological/Oncological Hx Blood Disorders: No Hx Hemophilia: No Hx Sickle Cell Disease: No - Integumentary Hx Dermatological Disorder: No - Musculoskeletal/Rheumatological Hx Musculoskeletal Disorders: Yes Hx Falls: No Hx Fractures: Yes ((rib/sternum)) - Gastrointestinal Hx Gastrointestinal Disorders: Yes Hx Gastroesophageal Reflux: Yes Other/Comment: Hepatic Infiltration - Genitourinary/Gynecological Hx Genitourinary Disorders: No - Psychiatric Hx Psychophysiologic Disorder: Yes Hx Anxiety: Yes Hx Depression: Yes Hx Substance Use: Yes - Past Surgical History Past Surgical History: No Previous - Surgical History Hx Cardiac Catheterization: Yes (x 5 stents) Hx Coronary Stent: Yes - Anesthesia Hx Anesthesia: Yes Hx Anesthesia Reactions: No Hx Malignant Hyperthermia: No - Suicidal Assessment Feels Threatened In Home Enviroment: No Family/Social History - Physician Review Nursing Documentation Reviewed: Yes Family/Social History: Unknown Family HX Smoking Status: Heavy Smoker > 10 Cigarettes Daily Hx Alcohol Use: Yes Hx Substance Use: Yes Hx Substance Use Treatment: No Allergies/Home Meds Allergies/Adverse Reactions: Allergies ciprofloxacin Allergy (Severe, Verified 12/13/17 19:21) NUMBNESS levofloxacin [From Levaquin] Allergy (Verified 12/13/17 19:21) NUMBNESS metronidazole [From Flagyl] Allergy (Verified 12/13/17 19:21) SWELLING Review of Systems - Physician Review All systems were reviewed & negative as marked: Yes - Review of Systems Constitutional: absent: Fatigue, Fevers Respiratory: absent: SOB, Cough Cardiovascular: absent: Chest Pain, Palpitations, Syncope Gastrointestinal: absent: Abdominal Pain, Diarrhea, Vomiting Genitourinary Male: absent: Dysuria, Frequency, Hematuria Neurological: Dizziness. absent: Headache, Focal Weakness, Gait Changes Physical Exam Vital Signs Temp Pulse Resp BP Pulse Ox 12/24/17 12:31 98.2 F 69 18 146/62 98 Temperature: Afebrile Blood Pressure: Normal Pulse: Regular Respiratory Rate: Normal Appearance: Positive for: Well-Appearing, Non-Toxic, Comfortable Pain Distress: None Mental Status: Positive for: Alert and Oriented X 3 - Systems Exam Head: Present: Atraumatic, Normocephalic Pupils: Present: PERRL Extroacular Muscles: Present: EOMI Conjunctiva: Present: Normal Ears: Present: NORMAL TM, Normal Canal. No: Erythema, TM Bulging Mouth: Present: Moist Mucous Membranes Pharnyx: No: ERYTHEMA, EXUDATE, TONSILS ENLARGED Neck: Present: Normal Range of Motion Respiratory/Chest: Present: Clear to Auscultation, Good Air Exchange, Decreased Breath Sounds. No: Respiratory Distress, Accessory Muscle Use Cardiovascular: Present: Regular Rate and Rhythm, Normal S1, S2. No: Murmurs Abdomen: No: Tenderness, Distention, Peritoneal Signs Upper Extremity: Present: Normal Inspection. No: Cyanosis, Edema Lower Extremity: Present: Normal Inspection. No: Edema Neurological: Present: GCS=15, CN II-XII Intact, Speech Normal, Motor Func Grossly Intact, Normal Cerebellar Funct Skin: Present: Warm, Dry, Normal Color. No: Rashes Psychiatric: Present: Alert, Oriented x 3, Normal Insight, Normal Concentration Medical Decision Making ED Course and Treatment: 12/24/17 13:11 EKG shows normal sinus rhythm rate approximately [address] or T-wave changes. 12/24/17 14:35 Procedure: Chest X-ray Impression: No active disease. Dictator: Gerry Crain MD 12/24/17 14:58 Procedure: CT Head without contrast Impression: No acute hemorrhage Dictator: Lc Hammer MD - RAD Interpretation Radiology Orders: CT scan of the head as read by the radiologist shows the old infarct and no new findings. Chest one view is read by the radiologist shows no infiltrate effusion or cardiomegaly. Integration Solution Architect: Radiologist Disposition/Present on Arrival - Present on Arrival Any Indicators Present on Arrival: No History of DVT/PE: No History of Uncontrolled Diabetes: No Urinary Catheter: No History of Decub. Ulcer: No History Surgical Site Infection Following: None - Disposition Have Diagnosis and Disposition been Completed?: Yes Diagnosis: Near syncope Disposition: HOME/ ROUTINE Disposition Time: 14:39 Patient Plan: Discharge Patient Problems: Current Active Problems Problem Status Onset Near syncope Acute Condition: GOOD Discharge Instructions (ExitCare): Syncope (Fainting), Tilt Table Test (DC), Near Fainting Referrals: PCP,NO [Primary Care Provider] - Follow up with primary Forms: [employer] (Maldivian)
--- NOTE | 2017-12-24 13:50 | RAD ---
Date of service: 12/24/2017 HISTORY: near syncope COMPARISON: No prior. FINDINGS: LUNGS: No active pulmonary disease. PLEURA: No significant pleural effusion identified, no pneumothorax apparent. CARDIOVASCULAR: No aortic atherosclerotic calcification present. Normal cardiac size. No pulmonary vascular congestion. OSSEOUS STRUCTURES: No significant abnormalities. VISUALIZED UPPER ABDOMEN: Normal. OTHER FINDINGS: None. IMPRESSION: No active disease.
[2017-12-24 13:55] LABS: BASO # 0.02 K/mm3 (0.0-2.0); BASO % 0.2 % (0.0-3.0); EOS # 0.3 (0.0-0.7); EOS % 2.6 % (1.5-5.0); GRAN # 8.53 (1.4-6.5); GRAN % 75.4 % (50.0-68.0); HEMOGLOBIN 13.2 g/dL (14.0-18.0); LYMPH # 1.7 (1.2-3.4); LYMPH % 15.3 % (22.0-35.0); MEAN CELL VOLUME 96.6 fl (80.0-105.0); MEAN CORPUSCULAR HEMOGLOBIN 32.5 pg (25.0-35.0); MEAN CORPUSCULAR HGB CONC 33.7 g/dl (31.0-37.0); MEAN PLATELET VOLUME 10.3 fl (7.0-11.0); MONO # 0.7 (0.1-0.6); MONO % 6.5 % (1.0-6.0); RBC 4.06 10^6/uL (3.5-6.1); RED CELL DISTRIBUTION WIDTH 12.8 % (11.5-14.5); WHITE BLOOD COUNT 11.3 10^3/uL (4.5-11.0)
[2017-12-24 13:58] LABS: INR 0.91; PARTIAL THROMBOPLASTIN TIME 36.9 Seconds (25.1-36.5); PROTHROMBIN TIME 10.4 SECONDS (9.4-12.5)
[2017-12-24 14:06] LABS: ALB/GLOB RATIO 1.3 (1.1-1.8); ALT/SGPT 20 U/L (7-56); AST/SGOT 23 U/L (17-59); BLOOD UREA NITROGEN 15 mg/dL (7-21); CALCIUM 9.2 mg/dL (8.4-10.5); GFR NON-AFRICAN AMERICAN > 60
[2017-12-24 14:08] LABS: TROPONIN I < 0.01 ng/mL
[2017-12-24 14:33] VITALS: BP 108/62; PULSE 63; TEMP 97.7; O2SAT 99
--- NOTE | 2017-12-24 14:36 | CT ---
Date of service: 12/24/2017 PROCEDURE: CT HEAD WITHOUT CONTRAST. HISTORY: near syncope COMPARISON: None available. TECHNIQUE: Axial computed tomography images were obtained through the head/brain without intravenous contrast. Radiation dose: Total exam DLP = 1065.85 mGy-cm. This CT exam was performed using one or more of the following dose reduction techniques: Automated exposure control, adjustment of the mA and/or kV according to patient size, and/or use of iterative reconstruction technique. FINDINGS: HEMORRHAGE: No intracranial hemorrhage. BRAIN: No mass effect or edema. Old left cerebellar infarct. VENTRICLES: Unremarkable. No hydrocephalus. CALVARIUM: Unremarkable. PARANASAL SINUSES: Unremarkable as visualized. No significant inflammatory changes. MASTOID AIR CELLS: Unremarkable as visualized. No inflammatory changes. OTHER FINDINGS: None. IMPRESSION: No acute hemorrhage
[2017-12-24 15:44] LABS: BARBITURATES, UR NEGATIVE (NEGATIVE); BENZODIAZEPINES, UR POSITIVE (NEGATIVE); OPIATES, UR NEGATIVE (NEGATIVE); PHENCYCLIDINE, UR NEGATIVE (NEGATIVE)
--- NOTE | 2017-12-25 08:11 | CARD ---
APPROVED REPORT Date of service: 12/24/2017 EKG Measurement Heart [id number] <Conclusion> Normal sinus rhythm Normal ECG
== END 2017-12-24 14:55 | disposition home or self-care (01) ==
LOC: ED 12:14
DX: R55 Syncope and collapse (principal)
CPT/HCPCS: 70450; 71045; 80053; 82550; 83615; 83735; 84484; 85025; 85610; 85730; 93005; 99285; G0480

== ENCOUNTER 2018-03-07 21:08 | Observation (INO) | payer MEDICARE, OTHER ==
[2018-03-07] MEDS ORDERED: Sodium Chloride 0.9% 500 ML IV STA (22:07)
[2018-03-07] MEDS ORDERED: Sodium Chloride 0.9% 1,000 ML IV STA (22:36)
[2018-03-07] MEDS ORDERED: Morphine 4 mg/ml ISec IVP STA (22:52)
[2018-03-07 23:23] LABS: ALB/GLOB RATIO 1.3 (1.1-1.8); ALBUMIN 4.6 g/dL (3.0-4.8); ALT/SGPT 31 U/L (7-56); AST/SGOT 33 U/L (17-59); BLOOD UREA NITROGEN 14 mg/dL (7-21); CALCIUM 10.2 mg/dL (8.4-10.5); GFR NON-AFRICAN AMERICAN > 60; LIPASE 73 U/L (23-300)
[2018-03-07 23:27] LABS: BASO # 0.04 K/mm3 (0.0-2.0); BASO % 0.4 % (0.0-3.0); EOS # 0.2 (0.0-0.7); EOS % 1.8 % (1.5-5.0); GRAN # 6.9 (1.4-6.5); GRAN % 72.3 % (50.0-68.0); HEMOGLOBIN 14.1 g/dL (14.0-18.0); LYMPH # 1.9 (1.2-3.4); LYMPH % 19.6 % (22.0-35.0); MEAN CELL VOLUME 95.3 fl (80.0-105.0); MEAN CORPUSCULAR HEMOGLOBIN 32.8 pg (25.0-35.0); MEAN CORPUSCULAR HGB CONC 34.4 g/dl (31.0-37.0); MEAN PLATELET VOLUME 9.4 fl (7.0-11.0); MONO # 0.6 (0.1-0.6); MONO % 5.9 % (1.0-6.0); RBC 4.3 10^6/uL (3.5-6.1); WHITE BLOOD COUNT 9.5 10^3/uL (4.5-11.0)
[2018-03-07 23:50] LABS: PH,URINE 6.5 (4.7-8.0); URINE BILIRUBIN NEGATIVE (NEGATIVE); URINE BLOOD TRACE-LYSED (NEGATIVE); URINE GLUCOSE (UA) NEGATIVE (NEGATIVE); URINE LEUKOCYTE ESTERASE NEGATIVE Leu/uL (NEGATIVE); URINE PROTEIN NEGATIVE mg/dL (<30 mg/dL); URINE UROBILINOGEN 0.2 E.U./dL (<1 E.U./dL)
[2018-03-07 23:52] LABS: URINE APPEARANCE CLEAR (CLEAR); URINE COLOR YELLOW (YELLOW)
[2018-03-08] MEDS ORDERED: Iohexol 350 MG/100 ML VIAL ONE (00:28)
[2018-03-08 00:29] LABS: URINE EPITHELIAL CELLS 0 - 2 /hpf (0-5); URINE RBC 0 - 2 /hpf (0-2); URINE WBC 0 - 2 /hpf (0-6)
--- NOTE | 2018-03-08 01:37 | ED PDOC ---
Arrival/HPI <OliverLc - Last Filed: 03/08/18 02:26> - General Historian: Patient - History of Present Illness Narrative History of Present Illness (Text): 03/08/18 02:46 57-year-old male presents today with a 2-day history of worsening left-sided abdominal and flank pain. Patient complaining of some suprapubic pain as well as pain to the left abdomen and left flank. Patient denies fevers or chills no chest pain or shortness of breath. He denies nausea or vomiting. No dizziness or weakness. No medications have been taken for pain at home. Patient states he has been urinating more frequently. Denies testicular pain. <Sharmila Howell - Last Filed: 03/08/18 02:51> - General Chief Complaint: Abdominal Pain Time Seen by Provider: 03/07/18 21:31 Past Medical History - Provider Review Nursing Documentation Reviewed: Yes - Travel History Have you recently traveled outside [place] w/in the past 3 mons?: No - Past History Past History: No Previous - Infectious Disease Hx of Infectious Diseases: None - Tetanus Immunization Tetanus Immunization: Up to Date - Cardiac Hx Cardiac Disorders: Yes Hx Hypertension: Yes - Pulmonary Hx Respiratory Disorders: Yes Hx Chronic Obstructive Pulmonary Disease (COPD): No - Neurological Hx Neurological Disorder: Yes Hx Transient Ischemic Attacks (TIA): Yes - HEENT Hx HEENT Disorder: No - Renal Hx Renal Disorder: No Hx Dialysis: No Hx Kidney Stones: No Hx Neurogenic Bladder: No Hx Pyelonephritis: No Hx Renal Cancer: No Hx Renal Failure: No Other/Comment: Renal cyst, BPH - Endocrine/Metabolic Hx Endocrine Disorders: No Hx Adrenal Cancer: No Hx Diabetes Insipidus: No Hx Diabetes Mellitus Type 1: No Hx Diabetes Mellitus Type 2: No Hx Hyperthyroidism: No Hx Hypothyroidism: No Hx Systemic Lupus Erythematosus: No - Hematological/Oncological Hx Blood Disorders: No Hx Hemophilia: No Hx Sickle Cell Disease: No - Integumentary Hx Dermatological Disorder: No - Musculoskeletal/Rheumatological Hx Musculoskeletal Disorders: Yes Hx Falls: No Hx Fractures: Yes ((rib/sternum)) - Gastrointestinal Hx Gastrointestinal Disorders: Yes Hx Gastroesophageal Reflux: Yes Other/Comment: Hepatic Infiltration - Genitourinary/Gynecological Hx Genitourinary Disorders: No - Psychiatric Hx Psychophysiologic Disorder: Yes Hx Anxiety: Yes Hx Depression: Yes Hx Substance Use: Yes - Past Surgical History Past Surgical History: No Previous - Surgical History Hx Cardiac Catheterization: Yes (x 5 stents) Hx Coronary Stent: Yes - Anesthesia Hx Anesthesia: Yes Hx Anesthesia Reactions: No Hx Malignant Hyperthermia: No - Suicidal Assessment Feels Threatened In Home Enviroment: No <Sharmila Howell - Last Filed: 03/08/18 02:51> Family/Social History - Physician Review Nursing Documentation Reviewed: Yes Family/Social History: Unknown Family HX Smoking Status: Heavy Smoker > 10 Cigarettes Daily Hx Alcohol Use: Yes Hx Substance Use: Yes Hx Substance Use Treatment: No <Sharmila Howell - Last Filed: 03/08/18 02:51> Allergies/Home Meds <cL Boyd - Last Filed: 03/08/18 02:26> <Sharmila Howell - Last Filed: 03/08/18 02:51> Allergies/Adverse Reactions: Allergies ciprofloxacin Allergy (Severe, Verified 12/13/17 19:21) NUMBNESS levofloxacin [From Levaquin] Allergy (Verified 12/13/17 19:21) NUMBNESS metronidazole [From Flagyl] Allergy (Verified 12/13/17 19:21) SWELLING Home Medications: Home Meds Medication Instructions Recorded Confirmed Famotidine [Pepcid] 20 mg PO DAILY 03/07/18 03/07/18 Lansoprazole [Prevacid] 30 mg PO DAILY 03/07/18 03/07/18 Review of Systems - Review of Systems Constitutional: absent: Fatigue, Fevers Cardiovascular: absent: Chest Pain, Palpitations Gastrointestinal: Abdominal Pain. absent: Constipation, Diarrhea, Nausea Genitourinary Male: Frequency. absent: Dysuria Musculoskeletal: Back Pain. absent: Arthralgias, Neck Pain Skin: absent: Rash, Pruritis Neurological: absent: Headache Psychiatric: absent: Anxiety, Depression <Sharmila Howell - Last Filed: 03/08/18 02:51> Physical Exam Vital Signs Temp Pulse Resp BP Pulse Ox 03/08/18 02:10 68 18 112/69 97 03/08/18 00:51 64 16 147/78 98 03/07/18 23:34 98.4 F 76 18 139/76 95 03/07/18 21:18 98.3 F 94 H 18 157/84 H 97 <Lc Boyd - Last Filed: 03/08/18 02:26> Vital Signs Reviewed: Yes Vital Signs Temp Pulse Resp BP Pulse Ox 03/07/18 23:34 98.4 F 76 18 139/76 95 03/07/18 21:18 98.3 F 94 H 18 157/84 H 97 Temperature: Afebrile Blood Pressure: Hypertensive Pulse: Tachycardic Respiratory Rate: Normal Appearance: Positive for: Well-Appearing, Non-Toxic, Comfortable Pain Distress: None Mental Status: Positive for: Alert and Oriented X 3 - Systems Exam Head: Present: Atraumatic Mouth: Present: Moist Mucous Membranes Neck: Present: Normal Range of Motion Respiratory/Chest: Present: Clear to Auscultation, Good Air Exchange. No: Respiratory Distress, Accessory Muscle Use Cardiovascular: Present: Regular Rate and Rhythm, Normal S1, S2. No: Murmurs Abdomen: Present: Tenderness (+ luq and llq tenderness. ). No: Distention, Peritoneal Signs, Rebound, Guarding Back: Present: Normal Inspection, Other (+ left flank tenderness. ). No: CVA Tenderness, Midline Tenderness Upper Extremity: Present: Normal Inspection Lower Extremity: Present: Normal Inspection Neurological: Present: GCS=15, Speech Normal Skin: Present: Warm, Dry, Normal Color. No: Rashes Psychiatric: Present: Alert, Oriented x 3 <Sharmila Howell - Last Filed: 03/08/18 02:51> Medical Decision Making - Lab Interpretations Lab Results: Total Bilirubin 0.8 mg/dL (0.2-1.3) 03/07/18 23:04 AST 33 U/L (17-59) 03/07/18 23:04 ALT 31 U/L (7-56) 03/07/18 23:04 Alkaline Phosphatase 64 U/L (38-126) 03/07/18 23:04 Total Protein 8.2 g/dL (5.8-8.3) 03/07/18 23:04 Albumin 4.6 g/dL (3.0-4.8) 03/07/18 23:04 Globulin 3.6 gm/dL 03/07/18 23:04 Albumin/Globulin Ratio 1.3 (1.1-1.8) 03/07/18 23:04 Lipase 73 U/L (23-300) 03/07/18 23:04 Urine Color Yellow (YELLOW) 03/07/18 23:28 Urine Appearance Clear (CLEAR) 03/07/18 23:28 Urine pH 6.5 (4.7-8.0) 03/07/18 23:28 Ur Specific [place] <= 1.005 (1.005-1.035) 03/07/18 23:28 Urine Protein Negative mg/dL (<30 mg/dL) 03/07/18 23:28 Urine Glucose (UA) Negative mg/dL (NEGATIVE) 03/07/18 23: Urine Ketones Negative mg/dL (NEGATIVE) 03/07/18 23:28 Urine Blood Trace-lysed (NEGATIVE) H 03/07/18 23: Urine Nitrate Negative (NEGATIVE) 03/07/18 23: Urine Bilirubin Negative (NEGATIVE) 03/07/18 23: Urine Urobilinogen 0.2 E.U./dL (<1 E.U./dL) 03/07/18 23:28 Ur Leukocyte Esterase Negative Augie/uL (NEGATIVE) 03/07/18 23:28 Urine RBC 0 - 2 /hpf (0-2) 03/07/18 23:28 Urine WBC 0 - 2 /hpf (0-6) 03/07/18 23:28 Ur Epithelial Cells 0 - 2 /hpf (0-5) 03/07/18 23:28 Urine Bacteria None /hpf (NONE) 03/07/18 23:28 - RAD Interpretation Radiology Orders: 03/07/18 22:26 CHEST PORTABLE [RAD] Stat 03/07/18 22:52 ABD & PELVIS IV CONTRAST ONLY [CT] Stat - Medication Orders Current Medication Orders: Discontinued Medications Sodium Chloride (Sodium Chloride 0.9%) 1,000 mls @ 999 mls/hr IV .Q1H1M STA Stop: 03/07/18 23:36 Last Admin: 03/07/18 23:05 Dose: 999 mls/hr eMAR Start Stop Document 03/07/18 23:05 OCS (Rec: 03/07/18 23:05 OCS [id number]) Intravenous Solution Start Date 03/07/18 Start Time 23:05 End Date 03/08/18 End time 00:06 Total Infusion Time 61 Ceftriaxone Sodium (Rocephin 1 Gram Ivpb) 1 gm in 100 mls @ 200 mls/hr IVPB STAT STA; Protocol Stop: 03/08/18 02:17 Last Admin: 03/08/18 02:14 Dose: 200 mls/hr eMAR Start Stop Document 03/08/18 02:14 RG (Rec: 03/08/18 02:17 RG [id number]) Intravenous Solution Start Date 03/08/18 Start Time 02:14 Morphine Sulfate (Morphine) 4 mg IVP STAT STA Stop: 03/07/18 22:53 Last Admin: 03/07/18 23:05 Dose: 4 mg MAR Pain Assessment Document 03/07/18 23:05 OCS (Rec: 03/07/18 23:07 OCS [id number] Pain Reassessment Is this a pain reassessment? No Sleep Is patient sleeping during reassessment? No Presence of Pain Presence of Pain Yes Pain Scale Used Protocol: [facility] Pain Scale Used Numeric Location Left, Right or Bilateral Left Pain Location Body Site Back Description Description Constant Intensity of Pain at present 10 Pain Behavior Irritability Facial Grimacing Aggravating Factors ADL's IVP Administration Document 03/07/18 23:05 OCS (Rec: 03/07/18 23:07 [facility]CS [facility]) Charges for Administration # of IVP Administrations 1 Morphine Sulfate (Morphine) 4 mg IVP STAT STA Stop: 03/08/18 01:50 Last Admin: 03/08/18 02:16 Dose: 4 mg MAR Pain Assessment Document 03/08/18 02:16 RG (Rec: 03/08/18 02:16 RG [id number]) Pain Reassessment Is this a pain reassessment? Yes Sleep Is patient sleeping during reassessment? No Presence of Pain Presence of Pain Yes Pain Scale Used Protocol: [facility] Pain Scale Used Numeric Description Intensity of Pain at present 6 IVP Administration Document 03/08/18 02:16 RG (Rec: 03/08/18 02:16 RG [id number]) Charges for Administration # of IVP Administrations 1 Pantoprazole Sodium (Protonix Inj) 40 mg IVP STAT STA Stop: 03/07/18 22:37 Last Admin: 03/07/18 23:07 Dose: 40 mg IVP Administration Document 03/07/18 23:07 OCS (Rec: 03/07/18 23:07 OCS [facility]) Charges for Administration # of IVP Administrations 1 Lc Perez - Last Filed: 03/08/18 02:26> ED Course and Treatment: 03/08/18 01:36 57-year-old male with a 2-day history of left-sided abdominal and flank pain with urinary frequency EKG shows normal sinus rhythm at 77 bpm normal axis no ST elevations. Chest x-ray shows no infiltrate or effusion CBC within normal limits CMP within normal limits Lipase within normal limits Urinalysis within normal limits Patient was given morphine for pain Protonix given IV CAT scan of the abdomen and pelvis with IV contrast: COMMENTS: Uncomplicated colonic diverticulosis. Mild diffuse thickening of the bladder. 3.5 cm left renal simple cyst. The liver is of uniform attenuation without mass or defect. There is no intra or extrahepatic biliary ductal dilatation. The spleen is normal. The gallbladder is within normal limits. The pancreas is of normal contour and attenuation characteristics. There is no evidence of adrenal mass. Both kidneys demonstrate prompt and equal nephrograms. The kidneys are normal in size, shape and configuration. There is no evidence of renal or ureteral mass. No renal or ureteral calculi are identified. There is no hydroureter or hydronephrosis. No evidence for appendicitis. There is no bowel wall thickening. No evidence for small or large bowel obstruction. There is no evidence of abdominal ascites or lymphadenopathy. There is no evidence of intrinsic or extrinsic bladder mass. There is no pelvic ascites or lymphadenopathy. Images of the lung bases show no evidence of pleural or parenchymal mass. There are no pleural effusions. The bony structures are free of lytic or blastic lesions. IMPRESSION: Uncomplicated colonic diverticulosis. Mild diffuse thickening of the bladder. Underdistention versus mild cystitis. Thank you for your kind referral of this patient. Electronically signed on Mar 08, 2018 1:31:06 AM EST by: Luis Gonzalez M.D., Certified by ABR, MSK, Neuroradiology Patient reassessment. Patient is feeling better but still has left-sided abdominal pain and flank pain. Additional dose of morphine given. We will start the patient on Rocephin as patient has urinary symptoms with a CAT scan that shows a questionable cystitis. will send urine culture. Case was discussed in depth with the patient's primary care physician Dr. Mccall who accepts observational status admission for intractable abdominal pain with urinary frequency and a possible cystitis. All aspects of this case were discussed the attending of record. Impression: Intractable abdominal pain, back pain, urinary frequency Admit observation status to [facility] Reassessment Condition: Re-examined, Improving,but remains with symptoms - Lab Interpretations Lab Results: Total Bilirubin 0.8 mg/dL (0.2-1.3) 03/07/18 23:04 AST 33 U/L (17-59) 03/07/18 23:04 ALT 31 U/L (7-56) 03/07/18 23:04 Alkaline Phosphatase 64 U/L (38-126) 03/07/18 23:04 Total Protein 8.2 g/dL (5.8-8.3) 03/07/18 23:04 Albumin 4.6 g/dL (3.0-4.8) 03/07/18 23:04 Globulin 3.6 gm/dL 03/07/18 23:04 Albumin/Globulin Ratio 1.3 (1.1-1.8) 03/07/18 23:04 Lipase 73 U/L (23-300) 03/07/18 23:04 Urine Color Yellow (YELLOW) 03/07/18 23:28 Urine Appearance Clear (CLEAR) 03/07/18 23:28 Urine pH 6.5 (4.7-8.0) 03/07/18 23:28 Ur Specific [place] <= 1.005 (1.005-1.035) 03/07/18 23:28 Urine Protein Negative mg/dL (<30 mg/dL) 03/07/18 23:28 Urine Glucose (UA) Negative mg/dL (NEGATIVE) 03/07/18 23:28 Urine Ketones Negative mg/dL (NEGATIVE) 03/07/18 23:28 Urine Blood Trace-lysed (NEGATIVE) H 03/07/18 23:28 Urine Nitrate Negative (NEGATIVE) 03/07/18 23:28 Urine Bilirubin Negative (NEGATIVE) 03/07/18 23: Urine Urobilinogen 0.2 E.U./dL (<1 E.U./dL) 03/07/18 23:28 Ur Leukocyte Esterase Negative Augie/uL (NEGATIVE) 03/07/18 23:28 Urine RBC 0 - 2 /hpf (0-2) 03/07/18 23:28 Urine WBC 0 - 2 /hpf (0-6) 03/07/18 23:28 Ur Epithelial Cells 0 - 2 /hpf (0-5) 03/07/18 23:28 Urine Bacteria None /hpf (NONE) 03/07/18 23:28 - RAD Interpretation Radiology Orders: 03/07/18 22:26 CHEST PORTABLE [RAD] Stat 03/07/18 22:52 ABD & PELVIS IV CONTRAST ONLY [CT] Stat - Medication Orders Current Medication Orders: Discontinued Medications Sodium Chloride (Sodium Chloride 0.9%) 1,000 mls @ 999 mls/hr IV .Q1H1M STA Stop: 03/07/18 23:36 Last Admin: 03/07/18 23:05 Dose: 999 mls/hr eMAR Start Stop Document 03/07/18 23:05 OCS (Rec: 03/07/18 23:[facility] Intravenous Solution Start Date 03/07/18 Start Time 23:05 End Date 03/08/18 End time 00:06 Total Infusion Time 61 Morphine Sulfate (Morphine) 4 mg IVP STAT STA Stop: 03/07/18 22:53 Last Admin: 03/07/18 23:05 Dose: 4 mg MAR Pain Assessment Document 03/07/18 23:05 OCS (Rec: 03/07/18 23:07 [facility] Pain Reassessment Is this a pain reassessment? No Sleep Is patient sleeping during reassessment? No Presence of Pain Presence of Pain Yes Pain Scale Used Protocol: PSCALES Pain Scale Used Numeric Location Left, Right or Bilateral Left Pain Location Body Site Back Description Description Constant Intensity of Pain at present 10 Pain Behavior Irritability Facial Grimacing Aggravating Factors ADL's IVP Administration Document 03/07/18 23:05 OCS (Rec: 03/07/18 23:07 [facility] Charges for Administration # of IVP Administrations 1 Pantoprazole Sodium (Protonix Inj) 40 mg IVP STAT STA Stop: 03/07/18 22:37 Last Admin: 03/07/18 23:07 Dose: 40 mg IVP Administration Document 03/07/18 23:07 OCS (Rec: 03/07/18 23:07 [facility] Charges for Administration # of IVP Administrations 1 <Sharmila Howell T - Last Filed: 03/08/18 02:51> - PA / VETERINARY RADIOLOGIST / Resident Statement MARK has reviewed & agrees with the documentation as recorded. MD/DO has examined the patient and agrees with the treatment plan. <Lc Boyd - Last Filed: 03/08/18 02:26> Disposition/Present on Arrival <Lc Boyd - Last Filed: 03/08/18 02:26> - Present on Arrival Any Indicators Present on Arrival: No History of DVT/PE: No History of Uncontrolled Diabetes: No Urinary Catheter: No History of Decub. Ulcer: No History Surgical Site Infection Following: None - Disposition Have Diagnosis and Disposition been Completed?: Yes Disposition Time: 01:50 Patient Plan: Observation <Sharmila Howell - Last Filed: 03/08/18 02:51> - Disposition Diagnosis: Intractable abdominal pain, Back pain, Urinary frequency Disposition: HOSPITALIZED Condition: FAIR
[2018-03-08] MEDS ORDERED: cefTRIAXone 1 gm 1 GM/100 ML BAG IVPB STA (01:48)
[2018-03-08] MEDS ORDERED: Morphine 4 mg/ml ISec IVP STA (01:49)
[2018-03-08] MEDS ORDERED: Morphine 2 mg/ml ISec IVP ONE (06:49)
[2018-03-08] MEDS ORDERED: Sodium Chloride 0.45% 1,000 ML IV SCH (08:30)
--- NOTE | 2018-03-08 08:32 | CT ---
Date of service: 03/08/2018 PROCEDURE: CT Abdomen and Pelvis with contrast HISTORY: left sided abdominal pain COMPARISON: None. TECHNIQUE: Contrast dose: 100 cc of Omni 350 Radiation dose: Total exam DLP = 370.39 mGy-cm. This CT exam was performed using one or more of the following dose reduction techniques: Automated exposure control, adjustment of the mA and/or kV according to patient size, and/or use of iterative reconstruction technique. FINDINGS: LOWER THORAX: Unremarkable. LIVER: Unremarkable. No gross lesion or ductal dilatation. GALLBLADDER AND BILE DUCTS: Unremarkable. PANCREAS: Unremarkable. No gross lesion or ductal dilatation. SPLEEN: Unremarkable. ADRENALS: Unremarkable. No mass. KIDNEYS AND URETERS: Unremarkable. No hydronephrosis. No solid mass. VASCULATURE: Unremarkable. No aortic aneurysm. No aortic atherosclerotic calcification or mural plaque present. BOWEL: Unremarkable. No obstruction. No gross mural thickening. Mild diverticulosis. APPENDIX: Normal appendix. PERITONEUM: Unremarkable. No free fluid. No free air. LYMPH NODES: Unremarkable. No enlarged lymph nodes. BLADDER: Mild mural thickening in the bladder. This could be due to underdistention REPRODUCTIVE: Unremarkable. BONES: No acute fracture. OTHER FINDINGS: The report concurs with the preliminary [facility] report IMPRESSION: No acute intra-abdominal findings
--- NOTE | 2018-03-08 09:09 | RAD ---
Date of service: 03/07/2018 HISTORY: abd pain COMPARISON: 12/24/2017. FINDINGS: LUNGS: The lungs are well inflated and clear. PLEURA: No pleural effusions or pneumothorax. CARDIOVASCULAR: The heart is normal in size. No aortic atherosclerotic calcifications present. OSSEOUS STRUCTURES: Within normal limits for the patient's age. VISUALIZED UPPER ABDOMEN: Normal. OTHER FINDINGS: None. IMPRESSION: No active pulmonary disease.
[2018-03-08] MEDS ORDERED: Albuterol-Ipratrop 3 mg / 0.5 (3 ml) UD IH SCH (10:00)
[2018-03-08] MEDS: Cholecalciferol 1,000 INTLU TAB PO SCH (10:21)
--- NOTE | 2018-03-08 10:29 | CP.PCM.CON ---
<Wesley Rajput - Last Filed: 03/08/18 13:55> History of Present Illness - History of Present Illness History of Present Illness: GI Consult Note for Dr. Verdugo Reason for Consultation: Abdominal pain HPI: Patient is a 57 yo M with PMH of COPD, HTN, HLD, CAD s/p 5 stents, gastric ulcer, renal cyst, BPH, and EtOH abuse [place] [facility] [place] two day history of left flank pain that radiates to groin with insidious onset. Patient also states that he has dull abdominal pain in the left lower quadrant. Patient states that eating does not make it worse, nor can he identify any other aggravating factors. Patient has attempted to use tylenol at home with no relief. In the ED, patient was given IV pain medications which alleviated his pain somewhat. Patient denies hematuria, dysuria, pyuria, diarrhea, constipation, or decreased PO intake. Patient EGD and colonoscopy on 11/23/17 which showed esophagitis, gastritis, multiple duodenal ulcers, diverticulosis, and multiple colonic polyps. Patient is currently scheduled for repeat endoscopy on 03/25/18. Patient denies CP, SOB, n/v/d, fever, chills, CABRERA, or dizziness. PMH: COPD, HTN, HLD, CAD s/p 5 stents, gastric ulcer, renal cyst, BPH, and EtOH abuse Surg: ANNETTE x5 (2.5 yrs ago), lung biopsy All: Ciprofloxacin, Levofloxacin, Metronidazole SH: 40 pack yr history smoking, former heavy EtOH use (15-20 beers daily, quit 4 months ago), medical marijuana use FHx: Sister with thyroid CA Medications as per MAR Review of Systems - Review of Systems All systems: reviewed and no additional remarkable complaints except (12 point ROS reviewed and is negative other than what is stated in HPI.) Past Patient History - Infectious Disease Hx of Infectious Diseases: None - Tetanus Immunizations Tetanus Immunization: Up to Date - Past Medical History & Family History Past Medical History?: Yes - Past Social History Smoking Status: Light Smoker < 10 Cigarettes Daily - CARDIAC Hx Cardiac Disorders: Yes Hx Hypertension: Yes - PULMONARY Hx Respiratory Disorders: Yes Hx Chronic Obstructive Pulmonary Disease (COPD): No - NEUROLOGICAL Hx Neurological Disorder: Yes Hx Transient Ischemic Attacks (TIA): Yes - HEENT Hx HEENT Problems: No - RENAL Hx Chronic Kidney Disease: No Hx Dialysis: No Hx Kidney Stones: No Hx Neurogenic Bladder: No Hx Pyelonephritis: No Hx Renal (Kidney) Cancer: No Hx Renal Failure: No Other/Comment: Renal cyst, BPH - ENDOCRINE/METABOLIC Hx Endocrine Disorders: No Hx Adrenal Cancer: No Hx Diabetes Insipidus: No Hx Diabetes Mellitus Type 1: No Hx Diabetes Mellitus Type 2: No Hx Hyperthyroidism: No Hx Hypothyroidism: No Hx Systemic Lupus Erythematosus: No - HEMATOLOGICAL/ONCOLOGICAL Hx Blood Disorders: No Hx Hemophilia: No Hx Sickle Cell Disease: No - INTEGUMENTARY Hx Dermatological Problems: No - MUSCULOSKELETAL/RHEUMATOLOGICAL Hx Musculoskeletal Disorders: Yes Hx Falls: No Hx Fractures: Yes ((rib/sternum)) - GASTROINTESTINAL Hx Gastrointestinal Disorders: Yes Hx Gastroesophageal Reflux: Yes Other/Comment: Hepatic Infiltration - GENITOURINARY/GYNECOLOGICAL Hx Genitourinary Disorders: No - PSYCHIATRIC Hx Psychophysiologic Disorder: Yes Hx Anxiety: Yes Hx Depression: Yes Hx Substance Use: No - SURGICAL HISTORY Hx Surgeries: Yes (cardiac cath) Hx Cardiac Catheterization: Yes (x 5 stents) Hx Coronary Stent: Yes - ANESTHESIA Hx Anesthesia: Yes Hx Anesthesia Reactions: No Hx Malignant Hyperthermia: No Meds Allergies/Adverse Reactions: Allergies Allergy/AdvReac Type Severity Reaction Status Date / Time ciprofloxacin Allergy Severe NUMBNESS Verified 12/13/17 19:21 levofloxacin [From Levaquin] Allergy NUMBNESS Verified 12/13/17 19:21 metronidazole [From Flagyl] Allergy SWELLING Verified 12/13/17 19:21 - Medications Medications: Current Medications Albuterol/Ipratropium (Duoneb 3 Mg/0.5 Mg (3 Ml) Ud) 3 ml IH QID [facility] Atorvastatin Calcium (Lipitor) 40 mg PO DAILY [facility] Cholecalciferol (Vitamin D) 1,000 intlu PO DAILY [facility] Cyanocobalamin (Vitamin B12 100 Mcg Tab) 500 mcg PO DAILY [facility] Folic Acid (Folic Acid) 1 mg PO DAILY [facility] Sodium Chloride (Sodium Chloride 0.45%) 1,000 mls @ 80 mls/hr IV .[id number] [facility] Pantoprazole Sodium (Protonix Inj) 40 mg IVP DAILY [facility] Physical Exam - Constitutional Appears: No Acute Distress - Head Exam Head Exam: NORMAL INSPECTION - Eye Exam Eye Exam: Normal appearance Pupil Exam: NORMAL ACCOMODATION - ENT Exam ENT Exam: Mucous Membranes Moist, Normal Exam - Respiratory Exam Respiratory Exam: Clear to Auscultation Bilateral. absent: Rales, Rhonchi, Wheezes - Cardiovascular Exam Cardiovascular Exam: REGULAR RHYTHM, RRR. absent: Clicks, Gallop, Rubs - GI/Abdominal Exam GI & Abdominal Exam: Soft, Tenderness (Mild LLQ). absent: Distended, Guarding, Rebound - Extremities Exam Extremities exam: Positive for: normal inspection - Back Exam Back exam: CVA tenderness (L) - Neurological Exam Neurological exam: Alert, CN II-XII Intact, Oriented x3 - Psychiatric Exam Psychiatric exam: Normal Affect, Normal Mood - Skin Skin Exam: Normal Color, Warm Results - Vital Signs Recent Vital Signs: Last Vital Signs Temp 97.8 F 03/08/18 07:00 Pulse 72 03/08/18 07:00 Resp 18 03/08/18 07:00 BP 122/69 03/08/18 07:00 Pulse Ox 94 L 03/08/18 07:00 - Labs Result Diagrams: 03/07/18 23:04 03/07/18 23:04 Labs: Laboratory Results - last 24 hr 03/07/18 03/07/18 03/07/18 23:04 23:04 23:28 WBC 9.5 RBC 4.30 Hgb 14.1 Hct 41.0 L MCV 95.3 MCH 32.8 MCHC 34.4 RDW 14.0 Plt Count 309 MPV 9.4 Gran % 72.3 H Lymph % (Auto) 19.6 L [place] % (Auto) 5.9 Eos % (Auto) 1.8 Baso % (Auto) 0.4 Gran # 6.90 H Lymph # (Auto) 1.9 [place] # (Auto) 0.6 Eos # (Auto) 0.2 Baso # (Auto) 0.04 Sodium 137 Potassium 4.5 Chloride 102 Carbon Dioxide 28 Anion Gap 11 BUN 14 Creatinine 0.7 L Est GFR ( Amer) > 60 Est GFR (Non-Af Amer) > 60 Random Glucose 97 Calcium 10.2 Total Bilirubin 0.8 AST 33 ALT 31 Alkaline Phosphatase 64 Total Protein 8.2 Albumin 4.6 Globulin 3.6 Albumin/Globulin Ratio 1.3 Lipase 73 Urine Color Yellow Urine Appearance Clear Urine pH 6.5 Ur Specific [place] <= 1.005 Urine Protein Negative Urine Glucose (UA) Negative Urine Ketones Negative Urine Blood Trace-lysed H Urine Nitrate Negative Urine Bilirubin Negative Urine Urobilinogen 0.2 Ur Leukocyte Esterase Negative Urine RBC 0 - 2 Urine WBC 0 - 2 Ur Epithelial Cells 0 - 2 Urine Bacteria None Assessment & Plan - Assessment and Plan (Free Text) Assessment: 57 yo M with PMH of COPD, HTN, HLD, CAD s/p 5 stents, gastric/duodenal ulcers, renal cyst, BPH, and EtOH abuse presents [place] [facility] [place] left flank pain. GI consulted due to abdominal pain. Patient's pain unlikely related to GI etiology, most likely due to renal colic. 1. Left flank pain 2. H/o gastric/duodenal ulcers Plan: - Abdominal duplex ordered - Renal/Spleen US ordered - Continue IVF - Plan for outpatient endoscopy as scheduled Patient seen and discussed in detail with Dr. Verdugo. Gerardo Rajput, DO PGY2 <Judith Verdugo V - Last Filed: 03/09/18 00:16> Meds - Medications Medications: Current Medications Albuterol/Ipratropium (Duoneb 3 Mg/0.5 Mg (3 Ml) Ud) 3 ml IH [id number] [facility] Last Admin: 03/08/18 21:40 Dose: Not Given Atorvastatin Calcium (Lipitor) 40 mg PO DAILY [facility] Last Admin: 03/08/18 10:18 Dose: 40 mg Cholecalciferol (Vitamin D) 1,000 intlu PO DAILY [facility] Last Admin: 03/08/18 10:21 Dose: 1,000 intlu Cyanocobalamin (Vitamin B12 100 Mcg Tab) 500 mcg PO DAILY [facility] Last Admin: 03/08/18 10:21 Dose: 500 mcg Folic Acid (Folic Acid) 1 mg PO DAILY [facility] Last Admin: 03/08/18 10:18 Dose: 1 mg Sodium Chloride (Sodium Chloride 0.45%) 1,000 mls @ 80 mls/hr IV .[id number] [facility] Last Admin: 03/08/18 10:18 Dose: 80 mls/hr Pantoprazole Sodium (Protonix Inj) 40 mg IVP DAILY [facility] Last Admin: 03/08/18 10:18 Dose: 40 mg Results - Vital Signs Recent Vital Signs: Last Vital Signs Temp 97.9 F 03/08/18 22:06 Pulse 62 03/08/18 22:06 Resp 18 03/08/18 22:06 BP 108/66 03/08/18 22:06 Pulse Ox 94 L 03/08/18 22:06 - Labs Result Diagrams: 03/07/18 23:04 03/07/18 23:04 Labs: Laboratory Results - last 24 hr 03/07/18 23:28 Urine RBC 0 - 2 Urine WBC 0 - 2 Ur Epithelial Cells 0 - 2 Urine Bacteria None Attending/Attestation - Attestation I have personally seen and examined this patient.: Yes I have fully participated in the care of the patient.: Yes I have reviewed all pertinent clinical information: Yes Notes (Text): This is an addendum to GI progress report dictated by the resident.The patient was seen and examined earlier. Medical records, lab studies, imagings were reviewed. Last 24 hours events reviewed. Agreed with the above treatment plan as outlined in GI resident 's notes with the addition of the following 03/09/18 00:15
--- NOTE | 2018-03-08 11:00 | CARD ---
APPROVED REPORT Date of service: 03/07/2018 EKG Measurement Heart [id number] <Conclusion> Normal sinus rhythm Normal ECG
--- NOTE | 2018-03-08 11:37 | CP.PCM.CON ---
History of Present Illness - History of Present Illness History of Present Illness: Surgery Consult for Dr. Jensen, 57 year old Male presents with LLQ abdominal pain that radiates to the left flank for duration of 2 years that worsened over the past two days. Patient reports being 'frustrated" with the pain and came to the hospital. Pt reports nausea and headache. Denies vomiting, hematemisis, hematochezia, bloating, distension. Patient reports taking pepto-bismol and other OTC relief agents to no avail. Patient reports multiple endoscopies PMHx: Gastric & Duodonal Ulcers, Atherosclerosis, CAD, Orthostatic Hypotension, PSHx: 4 Stents (most recent 2 yrs ago), removal of saphenous vein Meds: Lipitor, PPI, Famotidine, Plavix, ASA, propanolol Social: Father - due to [place] Mother - due to [place] Admits to EtOH abuse, 40-pack yr smoking, medical marijuana use Review of Systems - Constitutional Constitutional: As Per HPI - EENT Ears: absent: Ear Pain, Tinnitus Nose/Mouth/Throat: absent: Nasal Congestion, Nasal Discharge, Sore Throat - Cardiovascular Cardiovascular: absent: Chest Pain - Respiratory Respiratory: absent: Cough, Dyspnea, Wheezing - Gastrointestinal Gastrointestinal: Abdominal Pain. absent: Bloating, Constipation, Diarrhea, Dysphagia, Heartburn, Hematemesis Past Patient History - Infectious Disease Hx of Infectious Diseases: None - Tetanus Immunizations Tetanus Immunization: Up to Date - Past Medical History & Family History Past Medical History?: Yes - Past Social History Smoking Status: Light Smoker < 10 Cigarettes Daily - CARDIAC Hx Cardiac Disorders: Yes Hx Hypertension: Yes - PULMONARY Hx Respiratory Disorders: Yes Hx Chronic Obstructive Pulmonary Disease (COPD): No - NEUROLOGICAL Hx Neurological Disorder: Yes Hx Transient Ischemic Attacks (TIA): Yes - HEENT Hx HEENT Problems: No - RENAL Hx Chronic Kidney Disease: No Hx Dialysis: No Hx Kidney Stones: No Hx Neurogenic Bladder: No Hx Pyelonephritis: No Hx Renal (Kidney) Cancer: No Hx Renal Failure: No Other/Comment: Renal cyst, BPH - ENDOCRINE/METABOLIC Hx Endocrine Disorders: No Hx Adrenal Cancer: No Hx Diabetes Insipidus: No Hx Diabetes Mellitus Type 1: No Hx Diabetes Mellitus Type 2: No Hx Hyperthyroidism: No Hx Hypothyroidism: No Hx Systemic Lupus Erythematosus: No - HEMATOLOGICAL/ONCOLOGICAL Hx Blood Disorders: No Hx Hemophilia: No Hx Sickle Cell Disease: No - INTEGUMENTARY Hx Dermatological Problems: No - MUSCULOSKELETAL/RHEUMATOLOGICAL Hx Musculoskeletal Disorders: Yes Hx Falls: No Hx Fractures: Yes ((rib/sternum)) - GASTROINTESTINAL Hx Gastrointestinal Disorders: Yes Hx Gastroesophageal Reflux: Yes Other/Comment: Hepatic Infiltration - GENITOURINARY/GYNECOLOGICAL Hx Genitourinary Disorders: No - PSYCHIATRIC Hx Psychophysiologic Disorder: Yes Hx Anxiety: Yes Hx Depression: Yes Hx Substance Use: No - SURGICAL HISTORY Hx Surgeries: Yes (cardiac cath) Hx Cardiac Catheterization: Yes (x 5 stents) Hx Coronary Stent: Yes - ANESTHESIA Hx Anesthesia: Yes Hx Anesthesia Reactions: No Hx Malignant Hyperthermia: No Meds Allergies/Adverse Reactions: Allergies Allergy/AdvReac Type Severity Reaction Status Date / Time ciprofloxacin Allergy Severe NUMBNESS Verified 12/13/17 19:21 levofloxacin [From Levaquin] Allergy NUMBNESS Verified 12/13/17 19:21 metronidazole [From Flagyl] Allergy SWELLING Verified 12/13/17 19:21 - Medications Medications: Current Medications Albuterol/Ipratropium (Duoneb 3 Mg/0.5 Mg (3 Ml) Ud) 3 ml IH [id number] [facility] Atorvastatin Calcium (Lipitor) 40 mg PO DAILY [facility] Last Admin: 03/08/18 10:18 Dose: 40 mg Cholecalciferol (Vitamin D) 1,000 intlu PO DAILY [facility] Last Admin: 03/08/18 10:21 Dose: 1,000 intlu Cyanocobalamin (Vitamin B12 100 Mcg Tab) 500 mcg PO DAILY [facility] Last Admin: 03/08/18 10:21 Dose: 500 mcg Folic Acid (Folic Acid) 1 mg PO DAILY [facility] Last Admin: 03/08/18 10:18 Dose: 1 mg Sodium Chloride (Sodium Chloride 0.45%) 1,000 mls @ 80 mls/hr IV .[id number] [facility] Last Admin: 03/08/18 10:18 Dose: 80 mls/hr Pantoprazole Sodium (Protonix Inj) 40 mg IVP DAILY [facility] Last Admin: 03/08/18 10:18 Dose: 40 mg Physical Exam - Constitutional Appears: Well - Head Exam Head Exam: ATRAUMATIC, NORMAL INSPECTION - Eye Exam Eye Exam: EOMI - ENT Exam ENT Exam: Mucous Membranes Moist, Normal Exam - Neck Exam Neck exam: Positive for: Normal Inspection - Respiratory Exam Respiratory Exam: NORMAL BREATHING PATTERN - Cardiovascular Exam Cardiovascular Exam: REGULAR RHYTHM, +S1, +S2 - GI/Abdominal Exam GI & Abdominal Exam: Normal Bowel Sounds, Tenderness. absent: Distended, Firm - Extremities Exam Extremities exam: Positive for: normal inspection - Back Exam Back exam: CVA tenderness (L) - Neurological Exam Neurological exam: Alert, Oriented x3 - Psychiatric Exam Psychiatric exam: Normal Affect, Normal Mood - Skin Skin Exam: Dry, Intact, Normal Color, Warm Results - Vital Signs Recent Vital Signs: Last Vital Signs Temp 97.8 F 03/08/18 07:00 Pulse 72 03/08/18 07:00 Resp 18 03/08/18 07:00 BP 122/69 03/08/18 07:00 Pulse Ox 94 L 03/08/18 07:00 - Labs Result Diagrams: 03/07/18 23:04 03/07/18 23:04 Labs: Laboratory Results - last 24 hr 03/07/18 03/07/18 03/07/18 23:04 23:04 23:28 WBC 9.5 RBC 4.30 Hgb 14.1 Hct 41.0 L MCV 95.3 MCH 32.8 MCHC 34.4 RDW 14.0 Plt Count 309 MPV 9.4 Gran % 72.3 H Lymph % (Auto) 19.6 L [place] % (Auto) 5.9 Eos % (Auto) 1.8 Baso % (Auto) 0.4 Gran # 6.90 H Lymph # (Auto) 1.9 [place] # (Auto) 0.6 Eos # (Auto) 0.2 Baso # (Auto) 0.04 Sodium 137 Potassium 4.5 Chloride 102 Carbon Dioxide 28 Anion Gap 11 BUN 14 Creatinine 0.7 L Est GFR ( Amer) > 60 Est GFR (Non-Af Amer) > 60 Random Glucose 97 Calcium 10.2 Total Bilirubin 0.8 AST 33 ALT 31 Alkaline Phosphatase 64 Total Protein 8.2 Albumin 4.6 Globulin 3.6 Albumin/Globulin Ratio 1.3 Lipase 73 Urine Color Yellow Urine Appearance Clear Urine pH 6.5 Ur Specific [place] <= 1.005 Urine Protein Negative Urine Glucose (UA) Negative Urine Ketones Negative Urine Blood Trace-lysed H Urine Nitrate Negative Urine Bilirubin Negative Urine Urobilinogen 0.2 Ur Leukocyte Esterase Negative Urine RBC 0 - 2 Urine WBC 0 - 2 Ur Epithelial Cells 0 - 2 Urine Bacteria None Assessment & Plan - Assessment and Plan (Free Text) Assessment: Chronic Abdominal Pain CT: diverticulosis , cystitis , no diverticulitis Plan: No acute Surgical Intervention f/u with GI PPI for h/o gastritis Avoid NSAIDs Avoid etoH, smoking Pain control Nausea control AYAKA Handy
[2018-03-08] MEDS: Albuterol-Ipratrop 3 mg / 0.5 (3 ml) UD IH SCH ×2 (13:42→21:40)
--- NOTE | 2018-03-08 16:44 | CP.PCM.CON ---
History of Present Illness - History of Present Illness History of Present Illness: Nephrology Consultation Note: Assessment: Stable abdomen pain orthostatic hypotension history CAD s/p stent, CVA ex etoh and current active smoker Plan BP control with meds as ordered. Maintain hemodynamics stable. Avoid hypotension. smoking cessation Dose meds/antibiotics for normal GFR. Glycemic control Further work up/management as per primary team Thanks for allowing me to participate in care of your patient. Will follow patient with you. 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 pt says he was diagnosed with orthostatic hypotension. has seen neuro and cardio denies dizziness or lightheadedness at this time ROS: Cardiovascular: No chest pain. Pulmonary: No shortness of breath Gastrointestinal: denies abdominal pain now No nausea. No vomiting. Genitourinary: No pain while urinating. Denies blood in urine. All other negative except as mentioned in HPI Physical Examination: General Appearance: Comfortable, in no acute respiratory distress, co-operative . Vitals reviewed and noted as below Head; Atraumatic, normocephalic ENT: no ulcers no thrush. Tongue is midline. Oropharynx: no rash or ulcers. EYES: Pupils are equal, round and reactive to light accommodation. Eye muscles and extraocular movement intact. Sclera is anicteric. Neck; supple no lymphadenopathy, no thyromegaly or bruit Lungs: Normal respiratory rate/effort. Breath sounds bilateral equal and clear Heart: Normal rate. s1s2 normal. No rub or gallop. Extremities: no edema. No varicose veins Neurological: Patient is alert, awake and oriented to person, place and time. No focal deficit. Strength bilateral appropriate and equal Skin: Warm and dry. Normal turgor. No rash. Palpitation: Normal elasticity for age Abdomen: Abdomen is soft. Bowel sounds +. There is no abdominal tenderness, no guarding/rigidity no organomegaly Psych: normal insight and normal affect/mood MSK: no joint tenderness or swelling. Digits and nails normal, no deformity : kidney or bladder not palpable Labs/imaging reviewed. Past medical history, past surgical history, family history, social history, allergy reviewed and noted as below Family hx: no hx of CKD. Rest non-contributory \renal imaging WNL SG <1.005 Past Patient History - Infectious Disease Hx of Infectious Diseases: None - Tetanus Immunizations Tetanus Immunization: Up to Date - Past Medical History & Family History Past Medical History?: Yes - Past Social History Smoking Status: Light Smoker < 10 Cigarettes Daily - CARDIAC Hx Cardiac Disorders: Yes Hx Hypertension: Yes - PULMONARY Hx Respiratory Disorders: Yes Hx Chronic Obstructive Pulmonary Disease (COPD): No - NEUROLOGICAL Hx Neurological Disorder: Yes Hx Transient Ischemic Attacks (TIA): Yes - HEENT Hx HEENT Problems: No - RENAL Hx Chronic Kidney Disease: No Hx Dialysis: No Hx Kidney Stones: No Hx Neurogenic Bladder: No Hx Pyelonephritis: No Hx Renal (Kidney) Cancer: No Hx Renal Failure: No Other/Comment: Renal cyst, BPH - ENDOCRINE/METABOLIC Hx Endocrine Disorders: No Hx Adrenal Cancer: No Hx Diabetes Insipidus: No Hx Diabetes Mellitus Type 1: No Hx Diabetes Mellitus Type 2: No Hx Hyperthyroidism: No Hx Hypothyroidism: No Hx Systemic Lupus Erythematosus: No - HEMATOLOGICAL/ONCOLOGICAL Hx Blood Disorders: No Hx Hemophilia: No Hx Sickle Cell Disease: No - INTEGUMENTARY Hx Dermatological Problems: No - MUSCULOSKELETAL/RHEUMATOLOGICAL Hx Musculoskeletal Disorders: Yes Hx Falls: No Hx Fractures: Yes ((rib/sternum)) - GASTROINTESTINAL Hx Gastrointestinal Disorders: Yes Hx Gastroesophageal Reflux: Yes Other/Comment: Hepatic Infiltration - GENITOURINARY/GYNECOLOGICAL Hx Genitourinary Disorders: No - PSYCHIATRIC Hx Psychophysiologic Disorder: Yes Hx Anxiety: Yes Hx Depression: Yes Hx Substance Use: No - SURGICAL HISTORY Hx Surgeries: Yes (cardiac cath) Hx Cardiac Catheterization: Yes (x 5 stents) Hx Coronary Stent: Yes - ANESTHESIA Hx Anesthesia: Yes Hx Anesthesia Reactions: No Hx Malignant Hyperthermia: No Meds Allergies/Adverse Reactions: Allergies Allergy/AdvReac Type Severity Reaction Status Date / Time ciprofloxacin Allergy Severe NUMBNESS Verified 12/13/17 19:21 levofloxacin [From Levaquin] Allergy NUMBNESS Verified 12/13/17 19:21 metronidazole [From Flagyl] Allergy SWELLING Verified 12/13/17 19:21 - Medications Medications: Current Medications Albuterol/Ipratropium (Duoneb 3 Mg/0.5 Mg (3 Ml) Ud) 3 ml IH [id number] [facility] Last Admin: 03/08/18 13:42 Dose: 3 ml Atorvastatin Calcium (Lipitor) 40 mg PO DAILY [facility] Last Admin: 03/08/18 10:18 Dose: 40 mg Cholecalciferol (Vitamin D) 1,000 intlu PO DAILY [facility] Last Admin: 03/08/18 10:21 Dose: 1,000 intlu Cyanocobalamin (Vitamin B12 100 Mcg Tab) 500 mcg PO DAILY [facility] Last Admin: 03/08/18 10:21 Dose: 500 mcg Folic Acid (Folic Acid) 1 mg PO DAILY [facility] Last Admin: 03/08/18 10:18 Dose: 1 mg Sodium Chloride (Sodium Chloride 0.45%) 1,000 mls @ 80 mls/hr IV .[id number] [facility] Last Admin: 03/08/18 10:18 Dose: 80 mls/hr Pantoprazole Sodium (Protonix Inj) 40 mg IVP DAILY [facility] Last Admin: 03/08/18 10:18 Dose: 40 mg Results - Vital Signs Recent Vital Signs: Last Vital Signs Temp 97.8 F 03/08/18 07:00 Pulse 61 03/08/18 13:41 Resp 18 03/08/18 07:00 BP 122/69 03/08/18 07:00 Pulse Ox 94 L 03/08/18 07:00 - Labs Result Diagrams: 03/07/18 23:04 03/07/18 23:04 Labs: Laboratory Results - last 24 hr 03/07/18 03/07/18 03/07/18 23:04 23:04 23:28 WBC 9.5 RBC 4.30 Hgb 14.1 Hct 41.0 L MCV 95.3 MCH 32.8 MCHC 34.4 RDW 14.0 Plt Count 309 MPV 9.4 Gran % 72.3 H Lymph % (Auto) 19.6 L [place] % (Auto) 5.9 Eos % (Auto) 1.8 Baso % (Auto) 0.4 Gran # 6.90 H Lymph # (Auto) 1.9 [place] # (Auto) 0.6 Eos # (Auto) 0.2 Baso # (Auto) 0.04 Sodium 137 Potassium 4.5 Chloride 102 Carbon Dioxide 28 Anion Gap 11 BUN 14 Creatinine 0.7 L Est GFR ( Amer) > 60 Est GFR (Non-Af Amer) > 60 Random Glucose 97 Calcium 10.2 Total Bilirubin 0.8 AST 33 ALT 31 Alkaline Phosphatase 64 Total Protein 8.2 Albumin 4.6 Globulin 3.6 Albumin/Globulin Ratio 1.3 Lipase 73 Urine Color Yellow Urine Appearance Clear Urine pH 6.5 Ur Specific [place] <= 1.005 Urine Protein Negative Urine Glucose (UA) Negative Urine Ketones Negative Urine Blood Trace-lysed H Urine Nitrate Negative Urine Bilirubin Negative Urine Urobilinogen 0.2 Ur Leukocyte Esterase Negative Urine RBC 0 - 2 Urine WBC 0 - 2 Ur Epithelial Cells 0 - 2 Urine Bacteria None
--- NOTE | 2018-03-08 19:03 | US ---
PROCEDURE: Duplex ultrasound of the mesenteric arteries. HISTORY: Abdominal pain. Evaluate for mesenteric ischemia. PHYSICIAN(S): Greg Mcgregor MD. TECHNIQUE: Duplex sonography with color-flow Doppler was used to evaluate limited segments of the abdominal aorta and proximal segments of the mesenteric arteries. FINDINGS: The exam is limited by bowel gas and body habitus. The peak systolic velocity in the proximal celiac axis is 126 cm/second. This corresponds to a 0-49 percent proximal celiac axis stenosis. The peak systolic velocity in the proximal SMA is 124cm/sec. This is consistent with a 0 to 49% proximal SMA stenosis. The DEEPTHI was not visualized and evaluated. IMPRESSION: 1. 0-49 percent proximal celiac axis stenosis. 2. 0 to 49% proximal SMA stenosis. 3. The DEEPTHI was not visualized. 4. Somewhat limited study
--- NOTE | 2018-03-08 23:33 | CON ---
DATE: 03/08/2018 REASON FOR CONSULTATION: Cardiac evaluation, history of coronary artery disease, history of hypertension, and admitted with abdominal pain. BRIEF CLINICAL HISTORY: This is a 57-year-old male with documented coronary artery disease, history of multiple stents, admitted with left-sided abdominal pain, history of duodenal ulcer, and on 2 proton pump inhibitors. Cardiology consult was called for followup and evaluation of hypertension. The patient denies any chest pain, shortness of breath, or any palpitation. PAST MEDICAL HISTORY: Significant for coronary artery disease, status post multiple stents in LAD and RCA; last stent was on 12/30/2014; last catheterization on 04/25/2015 where the patient had only cardiac catheterization done; history of abdominal pain; history of abdominal aortogram and bilateral lower extremity runoff; no stent was done. SOCIAL HISTORY: Significant for active tobacco abuse and active alcohol abuse. PREVIOUS CARDIAC WORKUP: As follows; the patient had most recent stress test done by Dr. Greg Mckinnon on 10/01/2017, that shows probably negative myocardial perfusion study, fixed apical defect, ejection fraction 54%. When compared from the previous study on 10/18/1999, the previously noted partially reversible defect appears to be fixed in the current study. Prior to that, the patient had a stress test at [facility] (Formerly [facility]) because of the lack of network and it was negative. Besides this, invasive cardiac workup as follows; the patient had a stent in RPDA on 12/31/2014, history of mid-LAD PTCA on 12/03/2014. Most recent cardiac catheterization on 04/25/2015, because the patient is complaining of new dyspnea on exertion and chest pain, admitted with unstable angina. Cardiac catheterization at that time revealed patent stent in LAD, patent stent in RPDA, proximal LAD, eccentric 40% to 50% stenosis. FFR was done and found to 0.97, does not need a stent. Abdominal aortogram, peripheral angiogram up to mid-thigh was done, showed no significant flow-limiting stenosis in the lower extremity. CURRENT MEDICATIONS: The patient is taking at home; Prevacid 30 mg daily, Pepcid 20 mg at bedtime, aspirin 81 mg daily, folic acid, Advair, cyanocobalamin, Plavix 75 mg daily, and atorvastatin 40 mg daily. ALLERGIES: ALLERGY TO CIPROFLOXACIN, ALLERGY TO LEVAQUIN, AND ALLERGY TO FLAGYL. REVIEW OF SYSTEMS: As per HPI. PHYSICAL EXAMINATION: VITAL SIGNS: As follows; height of the patient is 5 feet 8 inches, weight of the patient 170 pounds, and body mass index 30 kg/m2. Temperature afebrile, heart rate 78, and blood pressure . HEENT: PERRLA. Extraocular muscles intact. NECK: Supple. No carotid bruit or thyromegaly. CHEST: Clear to auscultation. HEART: S1 and S2 regular. ABDOMEN: Soft, left side mild tenderness noted. EXTREMITIES: Clubbing and cyanosis negative. LABORATORY DATA: Blood workup; WBC 9.5, hemoglobin 14.1, hematocrit 41, and platelet count 309. Chemistry shows sodium 137, potassium 4.5, chloride of 102, carbon dioxide 28, anion gap of 11, BUN 14, and creatinine 0.7. EKG shows normal sinus, no acute ST-T changes noted. IMPRESSION AND PLAN: This is a 57-year-old male with past medical history significant for coronary artery disease, status post percutaneous transluminal coronary angioplasty of left anterior descending artery, status post percutaneous transluminal coronary angioplasty of right posterior descending artery in the past. Most recent cardiac catheterization on 04/25/2015, patent stent in right posterior descending artery, patent stent in left anterior descending, left anterior descending mid 40% to 50% stenosis done, but fractional flow reserve of 0.97. Recently, the patient had a stress test in 09/2017, essentially negative. The patient has a history of duodenal ulcer, being followed by Dr. Verdugo and on proton pump as well as H2 sharla as well as aspirin and Plavix. Hemoglobin stable, mild discomfort. The patient is on the way to discharge. If remained tonight, we will get lipid profile, TSH, hemoglobin A1c, and also get echocardiogram. We will follow with you. Thank you for providing us the opportunity in taking care of the patient, Anuel Whitt. Yajaira Vazquez MD
[2018-03-09] MEDS ORDERED: Morphine 2 mg/ml ISec IVP ONE (02:31)
[2018-03-09 07:31] LABS: BASO # 0.02 K/mm3 (0.0-2.0); BASO % 0.3 % (0.0-3.0); EOS # 0.4 (0.0-0.7); EOS % 5.1 % (1.5-5.0); GRAN # 4.11 (1.4-6.5); GRAN % 52.9 % (50.0-68.0); HEMOGLOBIN 12.6 g/dL (14.0-18.0); LYMPH # 2.5 (1.2-3.4); LYMPH % 31.7 % (22.0-35.0); MEAN CELL VOLUME 96.3 fl (80.0-105.0); MEAN CORPUSCULAR HEMOGLOBIN 31.1 pg (25.0-35.0); MEAN CORPUSCULAR HGB CONC 32.3 g/dl (31.0-37.0); MEAN PLATELET VOLUME 9.5 fl (7.0-11.0); MONO # 0.8 (0.1-0.6); RBC 4.05 10^6/uL (3.5-6.1); RED CELL DISTRIBUTION WIDTH 14.1 % (11.5-14.5); WHITE BLOOD COUNT 7.8 10^3/uL (4.5-11.0)
[2018-03-09 07:40] LABS: ALB/GLOB RATIO 1.2 (1.1-1.8); ALT/SGPT 28 U/L (7-56); AST/SGOT 29 U/L (17-59); BLOOD UREA NITROGEN 14 mg/dL (7-21); CALCIUM 9.2 mg/dL (8.4-10.5); GFR NON-AFRICAN AMERICAN > 60; HDL CHOLESTEROL 46 mg/dL (29-60)
[2018-03-09] MEDS: Albuterol-Ipratrop 3 mg / 0.5 (3 ml) UD IH SCH ×2 (07:42→13:26)
[2018-03-09 07:51] LABS: LDL CHOLESTEROL 109 mg/dL (0-129)
[2018-03-09 08:08] VITALS: RESP 20
[2018-03-09] MEDS: Cholecalciferol 1,000 INTLU TAB PO SCH (10:12)
--- NOTE | 2018-03-09 11:24 | HP ---
DATE OF EXAM: 03/08/2018 REASON FOR ADMISSION: The patient came in with left side abdominal pain. HISTORY OF PRESENT ILLNESS: This patient came in with left side abdominal pain that has been there for 2 years intermittently, but however he complained of more pain, more intense pain that enough to bring him to the emergency room in the night. The patient denied any nausea, vomiting, any fever and any chills. No other complaints. The patient has history of diverticulosis. He mentioned history of renal cyst, he does also have a history of coronary artery disease with multiple stents and high blood pressure that seems stable. The patient also a heavy smoker. There is no other complaint. PAST MEDICAL HISTORY: As above I mentioned. He does have coronary artery disease, multiple stents placed, good LV functions, has hypercholesteremia. He also has abdominal pain, has gastritis, has multiple endoscopies, multiple CT scans, asthma. MEDICATIONS: He uses inhalers. He is on aspirin, Plavix, Percocet and Pepcid. ALLERGIES: HE IS ALLERGIC TO CIPROFLOXACIN, LEVOFLOXACIN AND METRONIDAZOLE. FAMILY HISTORY: Noncontributory. His father has cancer, I believe there is a cancer and positive history of coronary artery disease and [place]. SOCIAL HISTORY: He lived with his . He is a heavy smoker years of smoking. Alcohol, he is alcoholic in the past, but he seems lacie cut down a lot, he only drink on a weekend never had any withdrawal or symptoms according to him and he does have an MRI that shows some cerebral atrophy in the past. REVIEW OF SYSTEMS: The patient feel some anxiety. He does take sometimes Ativan in the past. However, he is not on any now and also he does complained of intermittent abdominal pain. Otherwise, no other negative all of the review of system. PHYSICAL EXAMINATION: On the . VITAL SIGNS: Temperature 97.9, heart rate 62, blood pressure 108/66, respiration 18, and saturating 96% on room air. HEAD AND NECK: Normal. No JVD. No thyromegaly. CHEST: Clear bilateral. CARDIAC: First sound and second sound normal. No murmur, rub or gallop. ABDOMEN: Soft. There is no really significant tenderness. However, he does have some pain located more on the left side. He feel a little mild or minimal tenderness. No rebound tenderness on the left side and left flank. NEUROLOGIC: Normal. LABORATORY DATA: White count 9.5, hemoglobin 14.1, hematocrit 41 and platelets 309. Chemistry; sodium 137, potassium 4.5, chloride 102, bicarb 28, BUN 15 and creatinine 0.7. Liver functions test is normal. Total bilirubin 0.8. AST and ALT normal. Alkaline phosphatase is normal and we will followup on the other stuff. IMPRESSION AND PLAN: Abdominal pain, acute exacerbation of chronic pain, CT abdomen was negative, unremarkable was done with IV contrast, also Doppler study has been ordered of the Celiac and mesenteric to rule out any vascular etiology of his abdominal pain since he is heavy smoker and has coronaries and it was negative. We will get a Surgical consult, Gastroenterology consult and we will get the Cardiology consultation to evaluate him because of his cardiac issues. The patient also going to get labs in the morning. We will followup with the career development consultant seems doing well may be we will discharge in the morning if career development consultant cleared him. Harrison Mccall MD
--- NOTE | 2018-03-09 12:34 | PN ---
DATE: 03/09/2018 REASON FOR CONSULTATION AND FOLLOWUP: Cardiac evaluation, history of coronary artery disease, history of hypertension, and admitted with abdominal pain. SUBJECTIVE: The patient denies any chest pain, shortness of breath, or any palpitation. OBJECTIVE: GENERAL: Not in apparent distress. VITAL SIGNS: Temperature afebrile, heart rate 60, and blood pressure 101/62. HEENT: PERRLA. Extraocular muscles intact. NECK: Supple. No carotid bruits or thyromegaly. CHEST: Clear to auscultation. HEART: S1 and S2 regular. ABDOMEN: Soft. EXTREMITIES: Clubbing and cyanosis negative. LABORATORY DATA: Blood workup as follows; WBC 7.8, hemoglobin 12, hematocrit 39.0, and platelet count 284. Chemistry shows sodium 139, potassium 4.3, chloride of 104, carbon dioxide 33, anion gap of 8, BUN 14, creatinine 0.8, and TSH 5.23. IMPRESSION: A 57-year-old male with past medical history significant for coronary artery disease status post multiple stents. Last catheterization on 04/25/2015 shows a patent stent in left anterior descending and patent stent in . The patient had 40% to 50% stenosis in proximal left anterior descending. FFR was done and found to 0.97, does not need a stent. The patient had a stress test done by Dr. Mckinnon on 10/01/2017 essentially negative and also the patient had a echo done recently, dated 01/05/2018 that revealed normal left ventricular function, no wall motion abnormality, right ventricular systolic pressure 29, trace mitral regurgitation, trace tricuspid regurgitation, calculated ejection fraction 57% read by Dr. Sierra. RECOMMENDATIONS: CVA status is stable. No evidence of acute WA. Continue proton pump inhibitor. According to the patient, he has a duodenal ulcer; continue aspirin, continue Plavix, continue atorvastatin, continue Gastroenterology evaluation. The patient is cleared from cardiopulmonary point of view, he will be discharged. Discussed with the patient. Thank you Dr. Mccall for providing us the opportunity in taking care of the patient, Anuel Whitt. Yajaira Vazquez MD [facility] # [id number]
--- NOTE | 2018-03-09 14:22 | US ---
Date of service: 03/08/2018 PROCEDURE: Left upper quadrant ultrasound HISTORY: left side pain COMPARISON: TECHNIQUE: Transabdominal ultrasound limited to the left upper quadrant FINDINGS: The spleen is normal in size measuring 7.1 x 3.0 x 5.3 cm. There is a 3 cm cyst in the upper pole of the left kidney. IMPRESSION: Normal spleen
[2018-03-09 14:53] VITALS: BP 107/64; PULSE 67; TEMP 97.9; O2SAT 98
--- NOTE | 2018-03-09 15:25 | CP.PCM.PN ---
Subjective - Date & Time of Evaluation Date of Evaluation: 03/09/18 Time of Evaluation: 15:23 - Subjective Subjective: Nephrology Consultation Note: Assessment: Stable abdomen pain orthostatic hypotension history CAD s/p stent, CVA ex etoh and current active smoker Plan BP control with meds as ordered. Maintain hemodynamics stable. Avoid hypotension. smoking cessation Dose meds/antibiotics for normal GFR. Glycemic control Further work up/management as per primary team smoking cessation pt stable for d/c from renal perspective Thanks for allowing me to participate in care of your patient. Will sign off. 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 pt says he was diagnosed with orthostatic hypotension. has seen neuro and cardio denies dizziness or lightheadedness at this time ROS: Cardiovascular: No chest pain. Pulmonary: No shortness of breath Gastrointestinal: denies abdominal pain now No nausea. No vomiting. Genitourinary: No pain while urinating. Denies blood in urine. All other negative except as mentioned in HPI upset about being d/c today. using abusive words often. reports flash in left eye. saying that he has been to many doctors and I keep changing them Physical Examination: General Appearance: Comfortable, in no acute respiratory distress, co-operative . Vitals reviewed and noted as below Head; Atraumatic, normocephalic ENT: no ulcers no thrush. Tongue is midline. Oropharynx: no rash or ulcers. EYES: Pupils are equal, round and reactive to light accommodation. Eye muscles and extraocular movement intact. Sclera is anicteric. Neck; supple no lymphadenopathy, no thyromegaly or bruit Lungs: Normal respiratory rate/effort. Breath sounds bilateral equal and clear Heart: Normal rate. s1s2 normal. No rub or gallop. Extremities: no edema. No varicose veins Neurological: Patient is alert, awake and oriented to person, place and time. No focal deficit. Strength bilateral appropriate and equal Skin: Warm and dry. Normal turgor. No rash. Palpitation: Normal elasticity for age Abdomen: Abdomen is soft. Bowel sounds +. There is no abdominal tenderness, no guarding/rigidity no organomegaly Psych: ? insight and flat affect/mood upset MSK: no joint tenderness or swelling. Digits and nails normal, no deformity : kidney or bladder not palpable Labs/imaging reviewed. Past medical history, past surgical history, family history, social history, allergy reviewed and noted as below Family hx: no hx of CKD. Rest non-contributory \renal imaging WNL SG <1.005 Objective - Vital Signs/Intake and Output Vital Signs (last 24 hours): Temp Pulse Resp BP Pulse Ox 97.9 F 67 20 107/64 98 03/09/18 14:00 03/09/18 14:00 03/09/18 14:00 03/09/18 14:00 03/09/18 14:00 Intake and Output: 03/09/18 03/09/18 06:59 18:59 Intake Total 360 Balance 360 - Medications Medications: Current Medications Albuterol/Ipratropium (Duoneb 3 Mg/0.5 Mg (3 Ml) Ud) 3 ml [id number] Last Admin: 03/09/18 13:26 Dose: Not Given Atorvastatin Calcium (Lipitor) 40 mg PO DAILY [facility] Last Admin: 03/09/18 10:12 Dose: 40 mg Cholecalciferol (Vitamin D) 1,000 intlu PO DAILY [facility] Last Admin: 03/09/18 10:12 Dose: 1,000 intlu Cyanocobalamin (Vitamin B12 100 Mcg Tab) 500 mcg PO DAILY [facility] Last Admin: 03/09/18 10:13 Dose: 500 mcg Folic Acid (Folic Acid) 1 mg PO DAILY [facility] Last Admin: 03/09/18 10:12 Dose: 1 mg Sodium Chloride (Sodium Chloride 0.45%) 1,000 mls @ 80 mls/hr IV .[id number] [facility] Last Admin: 03/08/18 10:18 Dose: 80 mls/hr Nicotine (Nicoderm Cq) 1 patch TD DAILY [facility] Last Admin: 03/09/18 10:12 Dose: 1 patch Pantoprazole Sodium (Protonix Ec Tab) 40 mg PO ACB LONA - Labs Labs: 03/09/18 07:00 03/09/18 07:00
[2018-03-10] MEDS ORDERED: Pantoprazole 40 mg EC Tab PO SCH (07:30)
== END 2018-03-09 18:27 | disposition home or self-care (01) ==
LOC: ED 21:08 → ERH 03-08 01:50 → 5RSO 03-08 03:39
PROVIDERS: ADMIT Internal Medicine; ATTEND Internal Medicine
DX: R10.32 Left lower quadrant pain (principal); R35.0 Frequency of micturition; I25.10 Atherosclerotic heart disease of native coronary artery without angina pectoris; I10 Essential (primary) hypertension; E78.00 Pure hypercholesterolemia, unspecified; F17.200 Nicotine dependence, unspecified, uncomplicated; E78.5 Hyperlipidemia, unspecified; F12.90 Cannabis use, unspecified, uncomplicated; K21.0 Gastro-esophageal reflux disease with esophagitis; K29.70 Gastritis, unspecified, without bleeding; J44.9 Chronic obstructive pulmonary disease, unspecified; K57.30 Diverticulosis of large intestine without perforation or abscess without bleeding; N28.1 Cyst of kidney, acquired; Z86.73 Personal history of transient ischemic attack (TIA), and cerebral infarction without residual deficits; Z87.11 Personal history of peptic ulcer disease; Z95.5 Presence of coronary angioplasty implant and graft
CPT/HCPCS: 36415; 71045; 74177; 76700; 76705; 80053; 80061; 81001; 83036; 83690; 83735; 84100; 84436; 84443; 85025; 87086; 93005; 94640; 94760; 96361; 96374; 96375; 96376; 99284; C9113; G0378; J0696; J2270; J7030; Q9967

== ENCOUNTER 2018-03-09 17:11 | Inpatient (IN) | payer MEDICARE, OTHER ==
[2018-03-09 17:19] VITALS: BMI 24.3
--- NOTE | 2018-03-09 18:10 | ED PDOC ---
Arrival/HPI - General Chief Complaint: Dizziness/Lightheaded Time Seen by Provider: 03/09/18 17:13 Historian: Patient - History of Present Illness Narrative History of Present Illness (Text): 03/09/18 18:23 57-year-old male presents to the emergency room complaining of disequilibrium which started this AM. Patient states that his symptoms started at 10am when he saw a flash to his L eye which lasted for 20 mins, then developed a L sided pressure like headache with feeling of disequilibrium, stating that he has a difficult time walking. He adds that he was just discharged from the hospital earlier today and he had mentioned the following symptoms but was still discharged. States that he proceeded to walk home and could not make it home due to his symptoms and called his pmd and advised to return to the Emergency room. Reports that the following symptoms of disequilibrium is not new, they are chronic and intermittent x 2 years, he has seen a dneurologist in the past Dr. Gee and had an MRI with labs, which were all normal. Otherwise: (-) weakness, (-) lightheadedness, (-) trauma, (-) URI, (-) tinnitus, (-) hearing loss, (-) chest pain, (-) dyspnea, (-) fever, (-) vomiting, (-) abdominal pain, (-) diarrhea, (-) syncope, (-) GI bleeding. PMD Cal Vazquez Past Medical History - Past History Past History: No Previous - Infectious Disease Hx of Infectious Diseases: None - Tetanus Immunization Tetanus Immunization: Up to Date - Cardiac Hx Cardiac Disorders: Yes Hx Hypertension: Yes - Pulmonary Hx Respiratory Disorders: No - Neurological Hx Neurological Disorder: Yes Hx Transient Ischemic Attacks (TIA): Yes - HEENT Hx HEENT Disorder: No - Renal Hx Renal Disorder: Yes Other/Comment: Renal cyst, BPH - Endocrine/Metabolic Hx Endocrine Disorders: No - Hematological/Oncological Hx Blood Disorders: No - Integumentary Hx Dermatological Disorder: No - Musculoskeletal/Rheumatological Hx Musculoskeletal Disorders: Yes Hx Fractures: Yes ((rib/sternum)) - Gastrointestinal Hx Gastrointestinal Disorders: Yes Hx Gastroesophageal Reflux: Yes Other/Comment: Hepatic Infiltration - Genitourinary/Gynecological Hx Genitourinary Disorders: No - Psychiatric Hx Psychophysiologic Disorder: Yes Hx Anxiety: Yes Hx Depression: Yes Hx Substance Use: No - Past Surgical History Past Surgical History: No Previous - Surgical History Hx Cardiac Catheterization: Yes (x 5 stents) Hx Coronary Stent: Yes - Anesthesia Hx Anesthesia: Yes Hx Anesthesia Reactions: No Hx Malignant Hyperthermia: No - Suicidal Assessment Feels Threatened In Home Enviroment: No Family/Social History Family/Social History: No Known Family HX Smoking Status: Light Smoker < 10 Cigarettes Daily Hx Alcohol Use: No Hx Substance Use: No Hx Substance Use Treatment: No Allergies/Home Meds Allergies/Adverse Reactions: Allergies ciprofloxacin Allergy (Severe, Verified 12/13/17 19:21) NUMBNESS levofloxacin [From Levaquin] Allergy (Verified 12/13/17 19:21) NUMBNESS metronidazole [From Flagyl] Allergy (Verified 12/13/17 19:21) SWELLING Home Medications: Home Meds Medication Instructions Recorded Confirmed Famotidine [Pepcid] 20 mg PO DAILY 03/07/18 03/07/18 Lansoprazole [Prevacid] 30 mg PO DAILY 03/07/18 03/07/18 Review of Systems - Review of Systems Constitutional: absent: Fatigue, Fevers Respiratory: absent: SOB, Cough Cardiovascular: absent: Chest Pain, Palpitations Gastrointestinal: absent: Abdominal Pain, Nausea, Vomiting Genitourinary Male: absent: Dysuria, Frequency Musculoskeletal: absent: Arthralgias, Back Pain Skin: absent: Rash, Pruritis Neurological: Headache, Dizziness, Disequilibrium. absent: Gait Changes Physical Exam Vital Signs Temp Pulse Resp BP Pulse Ox 03/09/18 18:06 98.2 F 65 18 120/71 100 Temperature: Afebrile Blood Pressure: Normal Pulse: Regular Respiratory Rate: Normal Appearance: Positive for: Well-Appearing, Non-Toxic, Comfortable Pain Distress: None Mental Status: Positive for: Alert and Oriented X 3 - Systems Exam Head: Present: Atraumatic, Normocephalic Pupils: Present: PERRL Extroacular Muscles: Present: EOMI Conjunctiva: Present: Normal Mouth: Present: Moist Mucous Membranes Neck: Present: Normal Range of Motion Respiratory/Chest: Present: Clear to Auscultation, Good Air Exchange. No: Respiratory Distress, Accessory Muscle Use Cardiovascular: Present: Regular Rate and Rhythm, Normal S1, S2. No: Murmurs Abdomen: No: Tenderness, Distention, Peritoneal Signs Back: Present: Normal Inspection Upper Extremity: Present: Normal Inspection. No: Cyanosis, Edema Lower Extremity: Present: Normal Inspection. No: Edema Neurological: Present: GCS=15, CN II-XII Intact, Speech Normal, Motor Func Grossly Intact, Normal Sensory Function, Normal Cerebellar Funct, Gait Normal, Memory Normal, Normal 2Pt Descrimination, Other (+horizontal nystagmus noted when the patient gazes to the R) Skin: Present: Warm, Dry, Normal Color. No: Rashes Psychiatric: Present: Alert, Oriented x 3, Normal Insight, Normal Concentration Medical Decision Making ED Course and Treatment: 03/09/18 18:18 Previous medical records reviewed, patient has had previous CT head on 12/24/2017 which showed no acute hemorrhage and MRI brain on 03/19/17 which showed : 1. No acute intracranial abnormality. 2. 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 3. Minimal chronic microangiopathic changes and mild age-related global parenchymal volume loss. 4. Chronic pansinusitis. Plan : - IV - NS IV - tylenol po - CT head Labs performed earlier today reviewed. Patient has prior EKG and Chest X-ray on his last admission which was normal. Case d/w Dr. Mccall, request that the patient be admitted under the hospitalist service with consult to information systems administrator psych and neuro. Case d/w Dr. Billy Cavanaugh, hospitalist, who will admit the patient. Consults placed to information systems administrator psych and neuro. Patient agrees with plan for admission to the hospital. 03/09/18 22:15 CT Head: BRAIN Mild diffuse cortical atrophy is present. No acute intraparenchymal hemorrhage. No mass lesion. No CT evidence for acute territorial infarct. No midline shift or extra-axial collections. VENTRICLES: No hydrocephalus. VASCULAR: Some scattered atherosclerotic vascular plaquing is noted within the carotid siphons bilaterally. ORBITS: The orbits are unremarkable. SINUSES AND MASTOIDS: The mastoid air cells are clear. Mucoperiosteal thickening is noted within the maxillary, ethmoid and frontal sinuses bilaterally consistent with sinusitis. The sphenoid sinus appears satisfactorily developed and aerated. BONES: No fracture. SOFT TISSUES: Unremarkable. IMPRESSION: 1. No acute intracranial abnormality. 2. Sinusitis as described above. Electronically signed on Mar 09, 2018 10:08:48 PM EST by: Chad Rader M.D., EMMIE Certified By ABR & CBC[employer] Fellowship Trained MRI and CT Specialist Orthostatic VS : laying BP 113/63 P 76 sitting BP 100/56 P 79 standing BP 81/54 P 88 On re-evaluation, patient resting in bed comfortably, in no acute distress, AAOx3, ambulatory with a steady gait. - RAD Interpretation Radiology Orders: 03/09/18 18:04 HEAD W/O CONTRAST [CT] Stat - Medication Orders Current Medication Orders: Sodium Chloride (Sodium Chloride 0.9%) 1,000 mls @ 100 mls/hr IV .Q10H LONA Discontinued Medications Acetaminophen (Tylenol 325mg Tab) 975 mg PO STAT STA Stop: 03/09/18 18:05 - PA / LABOR ARBITRATOR / Resident Statement MD/DO has reviewed & agrees with the documentation as recorded. Disposition/Present on Arrival - Present on Arrival Any Indicators Present on Arrival: No History of DVT/PE: No History of Uncontrolled Diabetes: No Urinary Catheter: No History of Decub. Ulcer: No History Surgical Site Infection Following: None - Disposition Have Diagnosis and Disposition been Completed?: Yes Diagnosis: Dizziness, Headache, Orthostatic hypotension Disposition: HOSPITALIZED Disposition Time: 18:00 Patient Plan: Admission Patient Problems: Current Active Problems Problem Status Onset Dizziness Acute Headache Acute Orthostatic hypotension Acute Condition: STABLE
[2018-03-09] MEDS ORDERED: Sodium Chloride 0.9% 1,000 ML IV SCH (18:15)
[2018-03-09 20:02] LABS: OPIATES, UR NEGATIVE (NEGATIVE)
[2018-03-09 20:03] LABS: BARBITURATES, UR NEGATIVE (NEGATIVE); BENZODIAZEPINES, UR POSITIVE (NEGATIVE); PHENCYCLIDINE, UR NEGATIVE (NEGATIVE)
[2018-03-09] MEDS ORDERED: Albuterol 0.083% Inhal Sol (2.5 mg/3 mL) UD IH PRN (20:23)
--- NOTE | 2018-03-09 20:52 | CP.PCM.HP ---
<Wesley Ellsworth - Last Filed: 03/09/18 20:49> History of Present Illness - History of Present Illness History of Present Illness: Guerrero Jodee - H&P Hospitalist Service CC: Dizziness HPI: 57 yo M with PMH of COPD, HTN, HLD, CAD s/p 5 stents, gastric ulcer, renal cyst, BPH, and EtOH abuse presents to [facility] after discharge from Dr. Mccall service on 03/09/2018 with complaints of dizziness. Patient originally presented to [facility] ED on 03/08/18 for two day history of left flank pain that radiated to his groi. He reported abdominal pain as well in his left lower quadrant. He was seen by [employer] L[employer] Keeper Dr. Roth where he was evaluated for abdominal pain likely secondary to renal colic. Patient was worked up for abdominal pain etiology by nephrology, general surgery, cardiology. Patient was discharged to home after primary team assessed patient to be medically stable. Patient reports that he began having disequilibrium which started early in the morning. He reports difficulty walking and keeping his balance. He indicates he was unable to walk home. He called his primary care physician Dr. Mccall who instructed him to return to the emergency department. He reports his disequilbirium has been ongoing for the past 2 years intermittently. He reports seeing Dr. Gee and kristig an extensive workup with labs and MRI that were reported as normal. He denies weakness, lightheadness, trauma, tinnitius, hearing loss, chest pain, shortness of breath, vomiting, abdominal discomforot, GI losses, syncope, urinary complaints or blood loss. PMH: COPD, HTN, HLD, CAD s/p 5 stents, gastric ulcer, renal cyst, BPH, and EtOH abuse Surg: ANNETTE x5 (2.5 yrs ago), lung biopsy All: Ciprofloxacin, Levofloxacin, Metronidazole SH: 40 pack yr history smoking, former heavy EtOH use (15-20 beers daily, quit 4 months ago), medical marijuana use FHx: Sister with thyroid CA Medications as per APR PMD: Dr. Mccall Plate Stacker Hand: Dr. Vazquez Present on Admission - Present on Admission Any Indicators Present on Admission: No Review of Systems - Review of Systems All systems: reviewed and no additional remarkable complaints except (as mentioned in HPI) Past Patient History - Infectious Disease Hx of Infectious Diseases: None - Tetanus Immunizations Tetanus Immunization: Up to Date - Past Medical History & Family History Past Medical History?: Yes - Past Social History Smoking Status: Light Smoker < 10 Cigarettes Daily - CARDIAC Hx Cardiac Disorders: Yes Hx Hypertension: Yes - PULMONARY Hx Respiratory Disorders: No - NEUROLOGICAL Hx Neurological Disorder: Yes Hx Transient Ischemic Attacks (TIA): Yes - HEENT Hx HEENT Problems: No - RENAL Hx Chronic Kidney Disease: Yes Other/Comment: Renal cyst, BPH - ENDOCRINE/METABOLIC Hx Endocrine Disorders: No - HEMATOLOGICAL/ONCOLOGICAL Hx Blood Disorders: No - INTEGUMENTARY Hx Dermatological Problems: No - MUSCULOSKELETAL/RHEUMATOLOGICAL Hx Musculoskeletal Disorders: Yes Hx Fractures: Yes ((rib/sternum)) - GASTROINTESTINAL Hx Gastrointestinal Disorders: Yes Hx Gastroesophageal Reflux: Yes Other/Comment: Hepatic Infiltration - GENITOURINARY/GYNECOLOGICAL Hx Genitourinary Disorders: No - PSYCHIATRIC Hx Psychophysiologic Disorder: Yes Hx Anxiety: Yes Hx Depression: Yes Hx Substance Use: No - SURGICAL HISTORY Hx Cardiac Catheterization: Yes (x 5 stents) Hx Coronary Stent: Yes - ANESTHESIA Hx Anesthesia: Yes Hx Anesthesia Reactions: No Hx Malignant Hyperthermia: No Meds Allergies/Adverse Reactions: Allergies Allergy/AdvReac Type Severity Reaction Status Date / Time ciprofloxacin Allergy Severe NUMBNESS Verified 12/13/17 19:21 levofloxacin [From Levaquin] Allergy NUMBNESS Verified 12/13/17 19:21 metronidazole [From Flagyl] Allergy SWELLING Verified 12/13/17 19:21 Physical Exam - Constitutional Appears: Non-toxic, No Acute Distress, Older Than Stated Age - Head Exam Head Exam: ATRAUMATIC, NORMOCEPHALIC - Eye Exam Eye Exam: EOMI, PERRL - ENT Exam ENT Exam: Mucous Membranes Moist - Neck Exam Neck exam: Positive for: Full Rom. Negative for: Tenderness - Respiratory Exam Respiratory Exam: Clear to Auscultation Bilateral, NORMAL BREATHING PATTERN. absent: Wheezes - Cardiovascular Exam Cardiovascular Exam: REGULAR RHYTHM, +S1, +S2 - GI/Abdominal Exam GI & Abdominal Exam: Normal Bowel Sounds, Soft. absent: Tenderness - Extremities Exam Extremities exam: Positive for: full ROM. Negative for: calf tenderness, pedal edema, tenderness - Neurological Exam Neurological exam: Alert, CN II-XII Intact, Normal Gait, Oriented x3 - Psychiatric Exam Psychiatric exam: Normal Mood - Skin Skin Exam: Dry, Warm Results - Vital Signs Recent Vital Signs: Last Vital Signs Temp 98.2 F 03/09/18 18:06 Pulse 65 03/09/18 18:06 Resp 18 03/09/18 18:06 BP 120/71 03/09/18 18:06 Pulse Ox 100 03/09/18 18:06 - Labs Labs: Laboratory Results - last 24 hr 03/09/18 19:30 Urine Opiates Screen Negative Urine Methadone Screen Negative Ur Barbiturates Screen Negative Ur Phencyclidine Scrn Negative Ur Amphetamines Screen Negative U Benzodiazepines Scrn Positive H U Oth Cocaine Metabols Negative U Cannabinoids Screen Negative Assessment & Plan - Assessment and Plan (Free Text) Assessment: 57M w/ a PMH of Anxiety, COPD, Depression, Fractures (RIBS ,STERNUM), HTN, Hyperlipidemia, CAD s/p 5 stents, gastric ulcer, renal cysts, BPH, hx of hepatic infiltration and cervical disc herniations that presents with dizziness. Patient is to be admitted for further evaluation with neurological consult. Plan: Dizziness -Etiology: Vestibular vs. neurologic vs. cardiovascular vs. psychological etiology -Head CT(03/09/18): Pending official report -Neurolgy consult with bella Caceres appreciated -Physical therpay consultation -Orthostatic vital signs ordered -Maintain MAP >65mmHg -Request previous records from Dr. Gee for previous workup Hx CAD s/p stents -Continue ASA, plavix Hx COPD: -No wheezing on exam -Continue Home advair Hx alcohol abuse -Continue with thiamine and folate Hx HLD -Continue statin GI/DVT ppx Pepcid, HHD SCD Patient seen, case and plan discussed with attending Dr. Rebolledo <Clement Rebolledo - Last Filed: 03/09/18 23:29> Results - Vital Signs Recent Vital Signs: Last Vital Signs Temp 98.0 F 03/09/18 22:48 Pulse 58 L 03/09/18 22:48 Resp 18 03/09/18 22:48 BP 138/70 03/09/18 22:48 Pulse Ox 99 03/09/18 22:48 - Labs Labs: Laboratory Results - last 24 hr 03/09/18 19:30 Urine Opiates Screen Negative Urine Methadone Screen Negative Ur Barbiturates Screen Negative Ur Phencyclidine Scrn Negative Ur Amphetamines Screen Negative U Benzodiazepines Scrn Positive H U Oth Cocaine Metabols Negative U Cannabinoids Screen Negative Attending/Attestation - Attestation I have personally seen and examined this patient.: Yes I have fully participated in the care of the patient.: Yes I have reviewed all pertinent clinical information: Yes Notes (Text): 03/09/18 23:25 Patient was seen when he was in the ER. Medical record was reviewed. Agree with history , physical examination, assessment an plan with some exclusions/inclusions. Patient has been readmitted today for inability to walk. Complains of left eye flash, left sided headache, dizziness. TSH of 5.23 and free cortisol level 63.1 in previous admissions. Has history of allergies to Cipro, Flagyl, Levaquin, HTN,TIA,BPH, renal cyst, anxiety ,depression.
[2018-03-10 07:46] LABS: BASO # 0.02 K/mm3 (0.0-2.0); BASO % 0.3 % (0.0-3.0); EOS # 0.5 (0.0-0.7); EOS % 6.2 % (1.5-5.0); GRAN # 3.81 (1.4-6.5); GRAN % 52.5 % (50.0-68.0); HEMOGLOBIN 12.8 g/dL (14.0-18.0); LYMPH # 2.1 (1.2-3.4); LYMPH % 29.4 % (22.0-35.0); MEAN CELL VOLUME 96.3 fl (80.0-105.0); MEAN CORPUSCULAR HEMOGLOBIN 31.8 pg (25.0-35.0); MEAN PLATELET VOLUME 9.6 fl (7.0-11.0); MONO # 0.8 (0.1-0.6); MONO % 11.6 % (1.0-6.0); RBC 4.03 10^6/uL (3.5-6.1); RED CELL DISTRIBUTION WIDTH 13.7 % (11.5-14.5); WHITE BLOOD COUNT 7.3 10^3/uL (4.5-11.0)
[2018-03-10 07:50] LABS: ALB/GLOB RATIO 1.3 (1.1-1.8); ALBUMIN 4.1 g/dL (3.0-4.8); ALT/SGPT 29 U/L (7-56); AST/SGOT 30 U/L (17-59); BLOOD UREA NITROGEN 13 mg/dL (7-21); CALCIUM 9.3 mg/dL (8.4-10.5); GFR NON-AFRICAN AMERICAN > 60
[2018-03-10] MEDS ORDERED: Arformoterol 15 mcg/2 ml Inh Sol IH SCH (08:00)
[2018-03-10] MEDS ORDERED: Budesonide 0.5 mg/2 ml Inhal Susp UD IH SCH (08:00)
--- NOTE | 2018-03-10 08:58 | CT ---
Date of service: 03/09/2018 PROCEDURE: CT HEAD WITHOUT CONTRAST. HISTORY: dizziness COMPARISON: 12/24/2017 TECHNIQUE: Axial computed tomography images were obtained through the head/brain without intravenous contrast. Radiation dose: Total exam DLP = 1025.45 mGy-cm. This CT exam was performed using one or more of the following dose reduction techniques: Automated exposure control, adjustment of the mA and/or kV according to patient size, and/or use of iterative reconstruction technique. FINDINGS: HEMORRHAGE: No intracranial hemorrhage. BRAIN: No mass effect or edema. No atrophy or chronic microvascular ischemic changes. VENTRICLES: Unremarkable. No hydrocephalus. CALVARIUM: Unremarkable. PARANASAL SINUSES: Mucosal thickening can be seen in the ethmoid frontal and maxillary sinuses MASTOID AIR CELLS: Unremarkable as visualized. No inflammatory changes. OTHER FINDINGS: The report concurs with the preliminary [facility] report IMPRESSION: No acute intracranial findings
[2018-03-10] MEDS ORDERED: Pantoprazole 40 mg EC Tab PO SCH (10:00)
[2018-03-10] MEDS: Cholecalciferol 1,000 INTLU TAB PO SCH (10:04)
--- NOTE | 2018-03-10 12:36 | CP.PCM.PN ---
<Marily Goldberg - Last Filed: 03/10/18 19:01> Subjective - Date & Time of Evaluation Date of Evaluation: 03/10/18 Time of Evaluation: 12:35 - Subjective Subjective: Marily Goldberg, PGY2, Medicine Progress Note for Dr Kebede: Patient seen and examined at bedside. No acute events overnight. Patient reports that he has not experienced an episode of dizziness since admission. He states that he was discharged just yesterday from [facility], and while he was walking down the block, he felt dizzy and came back to the ER. He has had such episodes for past 2 years, has extensive workup done with Neurology Dr Gee and ENT outpatient, with no cause identified. He reports associated "whooshing sound" in left ear and "flashing vision" in left eye during these episodes. The episodes occur suddenly, and last 5-10 mins. Denies any alleviating or worsening factors. Objective - Vital Signs/Intake and Output Vital Signs (last 24 hours): Temp Pulse Resp BP Pulse Ox 97.8 F 58 L 19 111/68 98 03/10/18 06:00 03/10/18 06:00 03/10/18 06:00 03/10/18 06:00 03/10/18 06:00 Intake and Output: 03/10/18 03/10/18 06:59 18:59 Intake Total 180 Balance 180 - Medications Medications: Current Medications Albuterol Sulfate (Albuterol 0.083% Inhal Vanessa (2.5 Mg/3 Ml) Ud) 2.5 mg IH Q6H PRN PRN Reason: Wheezing Arformoterol Tartrate (Brovana) 15 mcg IH [id number] [facility] Aspirin (Ecotrin) 81 mg PO DAILY [facility] Last Admin: 03/10/18 10:04 Dose: 81 mg Atorvastatin Calcium (Lipitor) 40 mg PO DIN [facility] Budesonide (Pulmicort Respules) 0.5 mg IH [id number] [facility] Cholecalciferol (Vitamin D) 1,000 intlu PO DAILY [facility] Last Admin: 03/10/18 10:04 Dose: 1,000 intlu Clopidogrel Bisulfate (Plavix) 75 mg PO QAM [facility] Last Admin: 03/10/18 10:05 Dose: 75 mg Cyanocobalamin (Vitamin B12 1000 Mcg Tab) 500 mcg PO DAILY [facility] Last Admin: 03/10/18 10:04 Dose: 500 mcg Famotidine (Pepcid) 20 mg PO DAILY [facility] Last Admin: 03/10/18 10:05 Dose: 20 mg Folic Acid (Folic Acid) 1 mg PO DAILY [facility] Last Admin: 03/10/18 10:04 Dose: 1 mg Sodium Chloride (Sodium Chloride 0.9%) 1,000 mls @ 100 mls/hr IV .Q10H [facility] Last Admin: 03/09/18 18:30 Dose: 100 mls/hr Oxycodone/Acetaminophen (Percocet 5/325 Mg Tab) 1 tab PO Q6 PRN PRN Reason: Pain, moderate (4-7) Stop: 03/12/18 20:24 - Labs Labs: 03/10/18 06:45 03/10/18 06:45 - Constitutional Appears: Non-toxic, No Acute Distress - Head Exam Head Exam: ATRAUMATIC, NORMOCEPHALIC - Eye Exam Eye Exam: EOMI, PERRL. absent: Conjunctival injection, Nystagmus, Scleral icterus Pupil Exam: NORMAL ACCOMODATION, PERRL. absent: Miosis, Mydriatic - ENT Exam ENT Exam: Mucous Membranes Moist - Neck Exam Neck Exam: Full ROM - Respiratory Exam Respiratory Exam: Clear to Ausculation Bilateral, NORMAL BREATHING PATTERN. absent: Accessory Muscle Use, Respiratory Distress, Stridor - Cardiovascular Exam Cardiovascular Exam: RRR, +S1, +S2. absent: Murmur - GI/Abdominal Exam GI & Abdominal Exam: Soft, Normal Bowel Sounds. absent: Guarding, Rigid, Tenderness, Organomegaly - Extremities Exam Extremities Exam: Full ROM, Normal Inspection. absent: Calf Tenderness, Pedal Edema - Back Exam Back Exam: NORMAL INSPECTION - Neurological Exam Neurological Exam: Alert, Awake, CN II-XII Intact, Oriented x3, Reflexes Normal. absent: Motor Sensory Deficit Neuro motor strength exam: Left Upper Extremity: 5, Right Upper Extremity: 5, Left Lower Extremity: 5, Right Lower Extremity: 5 Additional comments: No nystagmus, visual lynch intact - Psychiatric Exam Psychiatric exam: Anxious, Normal Affect - Skin Skin Exam: Dry, Normal Color, Warm Assessment and Plan - Assessment and Plan (Free Text) Assessment: 57M w/ a PMH of Anxiety, COPD, Depression, Fractures (RIBS ,STERNUM), HTN, Hyperlipidemia, CAD s/p 5 stents, gastric ulcer, renal cysts, BPH, hx of hepatic infiltration and cervical disc herniations, presents for dizziness, found to have positive orthostatics. Neurology consulted for evaluation, MRI brain negative, CTA head/neck negative for significant atherosclerosis. PT eval recommends home with services, will consult with case management associate. Awaiting psych eval: Dizziness 2/2 likely orthostatic hypotension vs vestibular: - MRI neg, CTA head/neck negative for significant stenosis - Head CT neg - Neurology on board. appreciate recs. - PT eval recommend home with services. outpatient skilled PT for neck pain, advanced dynamic balance training. - Will discuss with case management regarding arranging those services. - Psych eval Hx CAD s/p stents -Continue ASA, plavix Hx COPD: -No wheezing on exam -Continue Home advair Hx alcohol abuse -Continue with thiamine and folate Hx HLD -Continue statin GI/DVT ppx Pepcid, HHD SCD Patient seen, case and plan discussed with attending, Dr Kebede. <Neno Kebede - Last Filed: 03/11/18 08:07> Objective - Vital Signs/Intake and Output Vital Signs (last 24 hours): Temp Pulse Resp BP Pulse Ox 98.1 F 75 18 115/63 96 03/10/18 14:00 03/10/18 14:00 03/10/18 14:00 03/10/18 14:00 03/10/18 14:00 Intake and Output: 03/11/18 03/11/18 06:59 18:59 Intake Total 360 Balance 360 - Medications Medications: Current Medications Albuterol Sulfate (Albuterol 0.083% Inhal Vanessa (2.5 Mg/3 Ml) Ud) 2.5 mg IH Q6H PRN PRN Reason: Wheezing Arformoterol Tartrate (Brovana) 15 mcg IH [id number] [facility] Last Admin: 03/11/18 07:36 Dose: Not Given Aspirin (Ecotrin) 81 mg PO DAILY [facility] Last Admin: 03/10/18 10:04 Dose: 81 mg Atorvastatin Calcium (Lipitor) 40 mg PO DIN [facility] Last Admin: 03/10/18 18:36 Dose: 40 mg Budesonide (Pulmicort Respules) 0.5 mg IH [id number] [facility] Last Admin: 03/11/18 07:36 Dose: Not Given Cholecalciferol (Vitamin D) 1,000 intlu PO DAILY [facility] Last Admin: 03/10/18 10:04 Dose: 1,000 intlu Clopidogrel Bisulfate (Plavix) 75 mg PO QAM [facility] Last Admin: 03/10/18 10:05 Dose: 75 mg Cyanocobalamin (Vitamin B12 1000 Mcg Tab) 500 mcg PO DAILY [facility] Last Admin: 03/10/18 10:04 Dose: 500 mcg Famotidine (Pepcid) 20 mg PO DAILY [facility] Last Admin: 03/10/18 10:05 Dose: 20 mg Folic Acid (Folic Acid) 1 mg PO DAILY [facility] Last Admin: 03/10/18 10:04 Dose: 1 mg Oxycodone/Acetaminophen (Percocet 5/325 Mg Tab) 1 tab PO Q6 PRN PRN Reason: Pain, moderate (4-7) Stop: 03/12/18 20:24 Last Admin: 03/11/18 00:12 Dose: 0.25 tab - Labs Labs: 03/11/18 07:30 03/10/18 06:45 Attending/Attestation - Attestation I have personally seen and examined this patient.: Yes I have fully participated in the care of the patient.: Yes I have reviewed all pertinent clinical information, including history, physical exam and plan: Yes Notes (Text): 03/10/18 57 year old male with past medical history of COPD, hypertension, CAD s/p stents, gastric ulcer, and BPH who presented with complaint of dizziness. He was discharged from hospital and returned same evening with complaint of dizziness while ambulating. He has been ambulating since admission. CT head was negative. Orthostatics were initially positive in ER but improved today after receiving IV fluids. PT evaluation was appreciated who recommended home with services. Psychiatry evaluation was appreciated as well. Neurology evaluation was appreciated who ordered for MRI and CTA head/neck which are negative for acute findings or significant stenosis. I have explained to the patient he will need outpatient ENT and ophthalmology evaluation. Will discuss with case management associate tomorrow morning for d/c planning with home services. Neno Kebede MD Hospitalist.
[2018-03-10 15:00] VITALS: RESP 18
[2018-03-10] MEDS: Oxycodone/Acetaminophen 5/325 mg Tab PO PRN (15:19)
--- NOTE | 2018-03-10 16:32 | CP.PCM.CON ---
<Tyrone Cason - Last Filed: 03/10/18 16:11> History of Present Illness - History of Present Illness History of Present Illness: Consult Note for Neurology Service, Dr. Ronald Cason, PGY-1 This is a 57 y o male with PMhx COPD, HTN, HLD, CAD s/p 5 stents, gastric ulcer, renal cyst, BPH, and EtOH abuse, who presented to [facility] after d/c from Dr. Mccall's service on 03/09/18 with c/o dizziness. Reason for consult was dizziness. Pt states he feels well today but is concerned because even though his dizziness resolved with his prior admission, he states that he felt his gait to be a little unsteady and reports he walked down the wrong street back home after being discharged from [facility]. Reports hx of disequilibrium/dizziness that has been present for the past 2 years. Pt has followed up with neurologist Dr. Gee in the past and had extensive work-up with labs and MRI reported to be wnl. Denies vision changes, headache, chest pain, sob, n/v/d/c, abd pain, urinary complaints, or other symptoms. PMH: COPD, HTN, HLD, CAD s/p 5 stents, gastric ulcer, renal cyst, BPH, and EtOH abuse Surg: ANNETTE x5 (2.5 yrs ago), lung biopsy All: Ciprofloxacin, Levofloxacin, Metronidazole Current meds: reviewed as per APR SH: 40 pack yr history smoking, former heavy EtOH use (15-20 beers daily, quit 4 months ago), medical marijuana use FHx: Sister with thyroid CA PMD: Dr. Mccall Primary neurologist: Dr. Gee Review of Systems - Constitutional Constitutional: absent: Chills, Fever, Headache, Weakness - EENT Eyes: absent: Blurred Vision, Change in Vision, Photophobia, Sees Flashes, Spots in Vision Ears: Dizziness. absent: Decreased Hearing, Tinnitus - Cardiovascular Cardiovascular: absent: Chest Pain, Dyspnea on Exertion, Palpitations - Respiratory Respiratory: absent: Cough, Dyspnea, Wheezing - Gastrointestinal Gastrointestinal: absent: Abdominal Pain, Constipation, Diarrhea, Nausea, Vomiting - Neurological Neurological: absent: Abnormal Gait, Abnormal Speech, Behavioral Changes, Co nvulsions, Numbness, Frequent Falls, Memory Loss, Paresthesias, Tingling, Tremor, Vertigo, Weakness, Other Visual Disturbances Past Patient History - Infectious Disease Hx of Infectious Diseases: None - Tetanus Immunizations Tetanus Immunization: Up to Date - Past Medical History & Family History Past Medical History?: Yes - Past Social History Smoking Status: Current Some Days Smoker - CARDIAC Hx Cardiac Disorders: Yes (CAD s/p 5 stents) Hx Hypertension: Yes - PULMONARY Hx Chronic Obstructive Pulmonary Disease (COPD): Yes - NEUROLOGICAL Hx Neurological Disorder: Yes Hx Transient Ischemic Attacks (TIA): Yes - HEENT Hx HEENT Problems: No - RENAL Hx Chronic Kidney Disease: Yes Other/Comment: Renal cyst, BPH - ENDOCRINE/METABOLIC Hx Endocrine Disorders: No - HEMATOLOGICAL/ONCOLOGICAL Hx Blood Disorders: No - INTEGUMENTARY Hx Dermatological Problems: No - MUSCULOSKELETAL/RHEUMATOLOGICAL Hx Musculoskeletal Disorders: Yes Hx Falls: No Hx Fractures: Yes ((rib/sternum)) - GASTROINTESTINAL Hx Gastrointestinal Disorders: Yes Hx Gastroesophageal Reflux: Yes Other/Comment: Hepatic Infiltration - GENITOURINARY/GYNECOLOGICAL Hx Genitourinary Disorders: No - PSYCHIATRIC Hx Psychophysiologic Disorder: Yes Hx Anxiety: Yes Hx Depression: Yes Hx Substance Use: No - SURGICAL HISTORY Hx Surgeries: Yes (cardiac cath) Hx Cardiac Catheterization: Yes (x 5 stents) Hx Coronary Stent: Yes - ANESTHESIA Hx Anesthesia: Yes Hx Anesthesia Reactions: No Hx Malignant Hyperthermia: No Meds Allergies/Adverse Reactions: Allergies Allergy/AdvReac Type Severity Reaction Status Date / Time ciprofloxacin Allergy Severe NUMBNESS Verified 12/13/17 19:21 levofloxacin [From Levaquin] Allergy NUMBNESS Verified 12/13/17 19:21 metronidazole [From Flagyl] Allergy SWELLING Verified 12/13/17 19:21 - Medications Medications: Current Medications Albuterol Sulfate (Albuterol 0.083% Inhal Vanessa (2.5 Mg/3 Ml) Ud) 2.5 mg IH Q6H PRN PRN Reason: Wheezing Arformoterol Tartrate (Brovana) 15 mcg IH [id number] [facility] Aspirin (Ecotrin) 81 mg PO DAILY [facility] Last Admin: 03/10/18 10:04 Dose: 81 mg Atorvastatin Calcium (Lipitor) 40 mg PO DIN [facility] Budesonide (Pulmicort Respules) 0.5 mg IH [id number] [facility] Cholecalciferol (Vitamin D) 1,000 intlu PO DAILY [facility] Last Admin: 03/10/18 10:04 Dose: 1,000 intlu Clopidogrel Bisulfate (Plavix) 75 mg PO QAM [facility] Last Admin: 03/10/18 10:05 Dose: 75 mg Cyanocobalamin (Vitamin B12 1000 Mcg Tab) 500 mcg PO DAILY [facility] Last Admin: 03/10/18 10:04 Dose: 500 mcg Famotidine (Pepcid) 20 mg PO DAILY [facility] Last Admin: 03/10/18 10:05 Dose: 20 mg Folic Acid (Folic Acid) 1 mg PO DAILY [facility] Last Admin: 03/10/18 10:04 Dose: 1 mg Oxycodone/Acetaminophen (Percocet 5/325 Mg Tab) 1 tab PO Q6 PRN PRN Reason: Pain, moderate (4-7) Stop: 03/12/18 20:24 Last Admin: 03/10/18 15:19 Dose: 1 tab Physical Exam - Constitutional Appears: Non-toxic, No Acute Distress - Head Exam Head Exam: ATRAUMATIC, NORMOCEPHALIC - Eye Exam Eye Exam: EOMI, Normal appearance, PERRL - ENT Exam ENT Exam: Mucous Membranes Moist - Respiratory Exam Respiratory Exam: Clear to Auscultation Bilateral, NORMAL BREATHING PATTERN. absent: Rales, Rhonchi, Wheezes - Cardiovascular Exam Cardiovascular Exam: REGULAR RHYTHM, +S1, +S2. absent: Gallop, Rubs, Systolic Murmur - GI/Abdominal Exam GI & Abdominal Exam: Normal Bowel Sounds, Soft. absent: Distended, Guarding, Organomegaly, Tenderness - Extremities Exam Extremities exam: Positive for: full ROM, normal capillary refill, normal inspection, pedal pulses present. Negative for: calf tenderness, pedal edema - Back Exam Back exam: FULL ROM, NORMAL INSPECTION. absent: paraspinal tenderness - Neurological Exam Neurological exam: Alert, CN II-XII Intact, Normal Gait, Oriented x3, Reflexes Normal - Psychiatric Exam Psychiatric exam: Normal Affect, Normal Mood - Skin Skin Exam: Dry, Intact, Normal Color, Warm Results - Vital Signs Recent Vital Signs: Last Vital Signs Temp 98.1 F 03/10/18 14:00 Pulse 75 03/10/18 14:00 Resp 18 03/10/18 14:00 BP 115/63 03/10/18 14:00 Pulse Ox 96 03/10/18 14:00 - Labs Result Diagrams: 03/10/18 06:45 03/10/18 06:45 Labs: Laboratory Results - last 24 hr 03/09/18 03/10/18 03/10/18 19:30 06:45 06:45 WBC 7.3 RBC 4.03 Hgb 12.8 L Hct 38.8 L MCV 96.3 MCH 31.8 MCHC 33.0 RDW 13.7 Plt Count 265 MPV 9.6 Gran % 52.5 Lymph % (Auto) 29.4 Dougherty % (Auto) 11.6 H Eos % (Auto) 6.2 H Baso % (Auto) 0.3 Gran # 3.81 Lymph # (Auto) 2.1 Dougherty # (Auto) 0.8 H Eos # (Auto) 0.5 Baso # (Auto) 0.02 Sodium Potassium Chloride Carbon Dioxide Anion Gap BUN Creatinine Est GFR ( Amer) Est GFR (Non-Af Amer) Random Glucose Calcium Phosphorus 4.4 Magnesium 2.2 Total Bilirubin AST ALT Alkaline Phosphatase Total Protein Albumin Globulin Albumin/Globulin Ratio Urine Opiates Screen Negative Urine Methadone Screen Negative Ur Barbiturates Screen Negative Ur Phencyclidine Scrn Negative Ur Amphetamines Screen Negative U Benzodiazepines Scrn Positive H U Oth Cocaine Metabols Negative U Cannabinoids Screen Negative 03/10/18 06:45 WBC RBC Hgb Hct MCV MCH MCHC RDW Plt Count MPV Gran % Lymph % (Auto) Dougherty % (Auto) Eos % (Auto) Baso % (Auto) Gran # Lymph # (Auto) Dougherty # (Auto) Eos # (Auto) Baso # (Auto) Sodium 140 Potassium 3.7 Chloride 106 Carbon Dioxide 28 Anion Gap 10 BUN 13 Creatinine 0.8 Est GFR ( Amer) > 60 Est GFR (Non-Af Amer) > 60 Random Glucose 97 Calcium 9.3 Phosphorus Magnesium Total Bilirubin 0.7 AST 30 ALT 29 Alkaline Phosphatase 54 Total Protein 7.2 Albumin 4.1 Globulin 3.1 Albumin/Globulin Ratio 1.3 Urine Opiates Screen Urine Methadone Screen Ur Barbiturates Screen Ur Phencyclidine Scrn Ur Amphetamines Screen U Benzodiazepines Scrn U Oth Cocaine Metabols U Cannabinoids Screen Assessment & Plan - Assessment and Plan (Free Text) Assessment: This is a 57 y o male with PMhx COPD, HTN, HLD, CAD s/p 5 stents, gastric ulcer, renal cyst, BPH, and EtOH abuse, who presented to [facility] after d/c from Dr. Mccall's service on 03/09/18 with c/o dizziness. Reason for consult was dizziness. Plan: Dizziness Sxs improving as per pt CBC, CMP wnl Utox pos for benzos MRI, CTA head/neck ordered, will f/u results PT eval Hx CAD s/p stents C/w ASA and Plavix Hx EtOH abuse C/w Thiamine and folate Further recommendations as per Dr. Cardenas, attending physician. Tyrone Cason DO PGY-1, [employer] Pager #[phone] <Natan Cardenas - Last Filed: 03/10/18 17:28> Meds - Medications Medications: Current Medications Albuterol Sulfate (Albuterol 0.083% Inhal Vanessa (2.5 Mg/3 Ml) Ud) 2.5 mg IH Q6H PRN PRN Reason: Wheezing Arformoterol Tartrate (Brovana) 15 mcg IH [id number] [facility] Aspirin (Ecotrin) 81 mg PO DAILY [facility] Last Admin: 03/10/18 10:04 Dose: 81 mg Atorvastatin Calcium (Lipitor) 40 mg PO DIN [facility] Budesonide (Pulmicort Respules) 0.5 mg IH [id number] [facility] Cholecalciferol (Vitamin D) 1,000 intlu PO DAILY [facility] Last Admin: 03/10/18 10:04 Dose: 1,000 intlu Clopidogrel Bisulfate (Plavix) 75 mg PO QAM [facility] Last Admin: 03/10/18 10:05 Dose: 75 mg Cyanocobalamin (Vitamin B12 1000 Mcg Tab) 500 mcg PO DAILY [facility] Last Admin: 03/10/18 10:04 Dose: 500 mcg Famotidine (Pepcid) 20 mg PO DAILY [facility] Last Admin: 03/10/18 10:05 Dose: 20 mg Folic Acid (Folic Acid) 1 mg PO DAILY [facility] Last Admin: 03/10/18 10:04 Dose: 1 mg Oxycodone/Acetaminophen (Percocet 5/325 Mg Tab) 1 tab PO Q6 PRN PRN Reason: Pain, moderate (4-7) Stop: 03/12/18 20:24 Last Admin: 03/10/18 15:19 Dose: 1 tab Results - Vital Signs Recent Vital Signs: Last Vital Signs Temp 98.1 F 03/10/18 14:00 Pulse 75 03/10/18 14:00 Resp 18 03/10/18 14:00 BP 115/63 03/10/18 14:00 Pulse Ox 96 03/10/18 14:00 - Labs Result Diagrams: 03/10/18 06:45 03/10/18 06:45 Labs: Laboratory Results - last 24 hr 03/09/18 03/10/18 03/10/18 19:30 06:45 06:45 WBC 7.3 RBC 4.03 Hgb 12.8 L Hct 38.8 L MCV 96.3 MCH 31.8 MCHC 33.0 RDW 13.7 Plt Count 265 MPV 9.6 Gran % 52.5 Lymph % (Auto) 29.4 Dougherty % (Auto) 11.6 H Eos % (Auto) 6.2 H Baso % (Auto) 0.3 Gran # 3.81 Lymph # (Auto) 2.1 Dougherty # (Auto) 0.8 H Eos # (Auto) 0.5 Baso # (Auto) 0.02 Sodium Potassium Chloride Carbon Dioxide Anion Gap BUN Creatinine Est GFR ( Amer) Est GFR (Non-Af Amer) Random Glucose Calcium Phosphorus 4.4 Magnesium 2.2 Total Bilirubin AST ALT Alkaline Phosphatase Total Protein Albumin Globulin Albumin/Globulin Ratio Urine Opiates Screen Negative Urine Methadone Screen Negative Ur Barbiturates Screen Negative Ur Phencyclidine Scrn Negative Ur Amphetamines Screen Negative U Benzodiazepines Scrn Positive H U Oth Cocaine Metabols Negative U Cannabinoids Screen Negative 03/10/18 06:45 WBC RBC Hgb Hct MCV MCH MCHC RDW Plt Count MPV Gran % Lymph % (Auto) Dougherty % (Auto) Eos % (Auto) Baso % (Auto) Gran # Lymph # (Auto) Dougherty # (Auto) Eos # (Auto) Baso # (Auto) Sodium 140 Potassium 3.7 Chloride 106 Carbon Dioxide 28 Anion Gap 10 BUN 13 Creatinine 0.8 Est GFR ( Amer) > 60 Est GFR (Non-Af Amer) > 60 Random Glucose 97 Calcium 9.3 Phosphorus Magnesium Total Bilirubin 0.7 AST 30 ALT 29 Alkaline Phosphatase 54 Total Protein 7.2 Albumin 4.1 Globulin 3.1 Albumin/Globulin Ratio 1.3 Urine Opiates Screen Urine Methadone Screen Ur Barbiturates Screen Ur Phencyclidine Scrn Ur Amphetamines Screen U Benzodiazepines Scrn U Oth Cocaine Metabols U Cannabinoids Screen Assessment & Plan - Assessment and Plan (Free Text) Plan: 57 yr old male who has some complaints that could be amarousis fugax and will need a workup. I examined the patient independently and agree with the assessment and plan. Dr. Cardenas Neurology
--- NOTE | 2018-03-10 16:42 | MRI ---
Date of service: 03/10/2018 PROCEDURE: MRI BRAIN WITHOUT CONTRAST HISTORY: stroke COMPARISON: MRI 03/19/2017 TECHNIQUE: Multiplanar, multisequence MR images of the brain were obtained without intravenous contrast enhancement. FINDINGS: HEMORRHAGE: None DWI: No evidence of an acute or early subacute infarction. BRAIN PARENCHYMA: No mass effect or edema. 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 VENTRICLES: Unremarkable. No hydrocephalus. CRANIUM: Unremarkable. ORBITS: Grossly unremarkable. PARANASAL SINUSES/MASTOIDS: Mucosal thickening in the ethmoid sinuses VASCULAR SYSTEM: Skull base flow voids intact. OTHER FINDINGS: None. IMPRESSION: No acute intracranial findings
[2018-03-10] MEDS ORDERED: Iohexol 350 MG/100 ML VIAL ONE (16:54)
--- NOTE | 2018-03-10 17:27 | CT ---
Date of service: 03/10/2018 PROCEDURE: CT Angiography of the Brain and Neck. HISTORY: stroke COMPARISON: None available. TECHNIQUE: CT angiography of the head and neck was performed following intravenous contrast administration. Coronal and sagittal maximum intensity projection reformatted images were generated. Contrast Dose: Omnipaque 350, 96 cc Radiation dose: Total exam DLP = 657.39 mGy-cm. This CT exam was performed using one or more of the following dose reduction techniques: Automated exposure control, adjustment of the mA and/or kV according to patient size, and/or use of iterative reconstruction technique. FINDINGS: INTERNAL CEREBRAL ARTERIES: Note is made of limited, partially calcified atherosclerosis of the bilateral cavernous internal carotid artery segments without significant stenosis. The skull base, petrous, and supraclinoid segments are bilaterally widely patent. The skull base, petrous, and supraclinoid segments are bilaterally widely patent. ANTERIOR CEREBRAL ARTERIES: Unremarkable. A1 and A2 segments are widely patent. Smaller distal branches unremarkable, as visualized. MIDDLE CEREBRAL ARTERIES: Unremarkable. M1 and M2 segments are widely patent. Perisylvian branches grossly symmetric. POSTERIOR CIRCULATION: Basilar Artery: Unremarkable. Distal Vertebral Arteries: Left dominant vertebrobasilar circulation with vertebral arteries widely patent bilaterally. Posterior Cerebral Arteries: Unremarkable. Posterior Inferior Cerebellar Arteries: Unremarkable. NECK CTA: Common Carotid arteries: The bilateral common carotid appear widely patent from their origins to their bifurcations with no significant stenosis appreciated. No evidence to suggest common carotid artery dissection. Mild partially calcified atherosclerosis is appreciated at the distal bilateral common carotid arteries extending into the bilateral carotid bulbs. Internal Carotid arteries: Minimal proximal bilateral internal carotid artery atherosclerosis identified. No significant stenosis is appreciated throughout the cervical internal carotid artery segments bilaterally and there is no evidence of dissection either. External Carotid arteries: Appear unremarkable bilaterally. Vertebral arteries: The bilateral vertebral arteries appear normal in caliber from their origins to their distal cervical segments. No significant stenosis or definite pattern of dissection. ANEURYSM/ VASCULAR MALFORMATIONS: None. OTHER FINDINGS: Incidental sinusitis [id number] affects the bilateral frontal ethmoid and maxillary sinuses sparing the sphenoid sinuses in general. IMPRESSION: CT angiography of the brain and neck demonstrates no occlusion or significant stenosis appreciable. Trace atherosclerosis appreciate the bilateral cavernous internal carotid artery segments with mild atherosclerosis identified without significant stenosis occurring at the bilateral common and internal carotid arteries as discussed above.
[2018-03-10] MEDS ORDERED: Verapamil 2 ML ONE (18:29)
--- NOTE | 2018-03-10 20:33 | CON ---
DATE: 03/10/2018 HISTORY OF PRESENT ILLNESS: In short, the patient is a 57-year-old male with not known previous psychiatric history, the patient denied history of mental illness, the patient denied history of being admitted to the psychiatric inpatient unit, the patient denied history of suicidal attempts. The patient was discharged from the hospital yesterday, but the patient came back to the hospital complaining of dizziness and inability to walk. This abstract writer got involved into the patient to rule out any paranoia. This abstract writer evaluated the patient. The patient presented with good personal hygiene, overall well related to this abstract writer. The patient is not aware why this abstract writer got involved into his care. The patient was fixated on his medical issues and has a lot of somatic complaints such as neck pain, some pain behind of his right ear. The patient also reported that he has "disequilibrium". The patient reported that he sees Dr. Viraj Gee, neurologist in the community. The patient also reported that he had multiple specialists and all tests were negative. The patient reported that he does not feel depressed. The patient does not feel anxious. The patient denied that he has any thoughts of harming himself or others. The patient denied hearing voices, denied seeing things, denied paranoid ideations. The patient does not present to be psychotic, but thought process was over inclusive and circumstantial. LABORATORY DATA: Labs reviewed. MEDICATIONS: Medications reviewed. As per nursing staff, the patient is asking for pain medication, after few minutes refused to take pain medication, asking about some benzodiazepines, some barbiturate. Overall no agitation, no aggression, no inappropriate behavior. PAST PSYCHIATRIC HISTORY: The patient denied being admitted to the psych wards. Denied history of suicidal attempts. The patient reported that he was in [place]. The patient denied any financial stressors in his life. MENTAL STATUS EXAMINATION: The patient presented to be alert and oriented, pleasant, cooperative. Fair eye contact. Mood described as it is fine. Affect was constricted. Thought process was over inclusive and circumstantial. Thought content, the patient denied visual, auditory, or tactile hallucinations. Denied paranoid ideation. The patient denied thoughts of harming himself or others. Denied intent or plan. The patient does not present to be psychotic. The patient does not present to be depressed, does not present to be anxious. Insight and judgment seems to be fair. Impulses are well controlled. IMPRESSION: This abstract writer could not find any psychiatric problems for this patient, but most likely anxiety over medical issues. This abstract writer feels that the patient is not psychotic, not depressed. PLAN: Continue current management. Continue current medication. The patient has followup appointment with neurologist and with primary care physician. From psychiatric standpoint, the patient is not in any imminent danger to self or others. This abstract writer will sign off. Should you have any questions, give me a call back. The patient does not want to be seen by psychiatrist in the community, which is the patient's right. Thank you very much for letting me participate in care of your patient. Nishi Lozano MD
[2018-03-11] MEDS: Oxycodone/Acetaminophen 5/325 mg Tab PO PRN (00:12)
[2018-03-11] MEDS ORDERED: Arformoterol 15 mcg/2 ml Inh Sol IH SCH (07:23)
[2018-03-11] MEDS ORDERED: Budesonide 0.5 mg/2 ml Inhal Susp UD IH SCH (07:24)
[2018-03-11 07:42] LABS: BASO # 0.02 K/mm3 (0.0-2.0); BASO % 0.3 % (0.0-3.0); EOS # 0.5 (0.0-0.7); EOS % 6.9 % (1.5-5.0); GRAN # 3.54 (1.4-6.5); GRAN % 48.1 % (50.0-68.0); HEMOGLOBIN 12.7 g/dL (14.0-18.0); LYMPH # 2.7 (1.2-3.4); LYMPH % 36.9 % (22.0-35.0); MEAN CELL VOLUME 96.8 fl (80.0-105.0); MEAN CORPUSCULAR HEMOGLOBIN 31.6 pg (25.0-35.0); MEAN CORPUSCULAR HGB CONC 32.6 g/dl (31.0-37.0); MEAN PLATELET VOLUME 9.3 fl (7.0-11.0); MONO # 0.6 (0.1-0.6); MONO % 7.8 % (1.0-6.0); RBC 4.02 10^6/uL (3.5-6.1); RED CELL DISTRIBUTION WIDTH 13.8 % (11.5-14.5); WHITE BLOOD COUNT 7.4 10^3/uL (4.5-11.0)
[2018-03-11 08:04] VITALS: BP 113/69; PULSE 63; TEMP 97.4; O2SAT 97
[2018-03-11 08:06] LABS: ALB/GLOB RATIO 1.3 (1.1-1.8); ALBUMIN 4.2 g/dL (3.0-4.8); ALT/SGPT 27 U/L (7-56); AST/SGOT 32 U/L (17-59); BLOOD UREA NITROGEN 19 mg/dL (7-21); CALCIUM 9.4 mg/dL (8.4-10.5); GFR NON-AFRICAN AMERICAN > 60
[2018-03-11] MEDS: Cholecalciferol 1,000 INTLU TAB PO SCH (09:09)
--- NOTE | 2018-03-11 12:37 | CP.PCM.DIS ---
<Marily Goldberg - Last Filed: 03/11/18 17:44> Provider - Provider Date of Admission: 03/09/18 18:00 Attending physician: Neno Kebede MD Consults: 03/09/18 18:15 Physician Consult Routine Comment: psych evaluation, paranoid thoughts Consulting Provider: Nishi Lozano Consulting Physician: Nishi Lozano Reason for Consult: psych evaluation, paranoid thoughts 03/09/18 18:17 Physician Consult Routine Comment: dizziness Consulting Provider: Natan Cardenas Consulting Physician: Natan Cardenas Reason for Consult: dizziness 03/09/18 20:22 Physician Consult Routine Comment: Consulting Provider: Natan Cardenas Consulting Physician: Natan Cardenas Reason for Consult: dizziness Time Spent in preparation of Discharge (in minutes): 55 Diagnosis - Discharge Diagnosis (1) Orthostatic hypotension Status: Acute (2) Dizziness Status: Acute Hospital Course - Lab Results Lab Results: Most Recent Lab Values WBC 7.4 10^3/uL (4.5-11.0) 03/11/18 07:30 RBC 4.02 10^6/uL (3.5-6.1) 03/11/18 07:30 Hgb 12.7 g/dL (14.0-18.0) L 03/11/18 07:30 Hct 38.9 % (42.0-52.0) L 03/11/18 07:30 MCV 96.8 fl (80.0-105.0) 03/11/18 07:30 MCH 31.6 pg (25.0-35.0) 03/11/18 07:30 MCHC 32.6 g/dl (31.0-37.0) 03/11/18 07:30 RDW 13.8 % (11.5-14.5) 03/11/18 07:30 Plt Count 259 10^3/uL (120.0-450.0) 03/11/18 07:30 MPV 9.3 fl (7.0-11.0) 03/11/18 07:30 Gran % 48.1 % (50.0-68.0) L 03/11/18 07:30 Lymph % (Auto) 36.9 % (22.0-35.0) H 03/11/18 07:30 Ness % (Auto) 7.8 % (1.0-6.0) H 03/11/18 07:30 Eos % (Auto) 6.9 % (1.5-5.0) H 03/11/18 07:30 Baso % (Auto) 0.3 % (0.0-3.0) 03/11/18 07:30 Gran # 3.54 (1.4-6.5) 03/11/18 07:30 Lymph # (Auto) 2.7 (1.2-3.4) 03/11/18 07:30 Ness # (Auto) 0.6 (0.1-0.6) 03/11/18 07:30 Eos # (Auto) 0.5 (0.0-0.7) 03/11/18 07:30 Baso # (Auto) 0.02 K/mm3 (0.0-2.0) 03/11/18 07:30 Sodium 140 mmol/L (132-148) 03/11/18 07:30 Potassium 4.5 mmol/L (3.6-5.0) 03/11/18 07:30 Chloride 105 mmol/L (98-107) 03/11/18 07:30 Carbon Dioxide 31 mmol/L (21-33) 03/11/18 07:30 Anion Gap 8 (10-20) L 03/11/18 07:30 BUN 19 mg/dL (7-21) 03/11/18 07:30 Creatinine 0.9 mg/dl (0.8-1.5) 03/11/18 07:30 Est GFR ( Amer) > 60 03/11/18 07:30 Est GFR (Non-Af Amer) > 60 03/11/18 07:30 Random Glucose 100 mg/dL (70-110) 03/11/18 07:30 Calcium 9.4 mg/dL (8.4-10.5) 03/11/18 07:30 Phosphorus 4.4 mg/dL (2.5-4.5) 03/10/18 06:45 Magnesium 2.2 mg/dL (1.7-2.2) 03/10/18 06:45 Total Bilirubin 0.7 mg/dL (0.2-1.3) 03/11/18 07:30 AST 32 U/L (17-59) 03/11/18 07:30 ALT 27 U/L (7-56) 03/11/18 07:30 Alkaline Phosphatase 51 U/L (38-126) 03/11/18 07:30 Total Protein 7.4 g/dL (5.8-8.3) 03/11/18 07:30 Albumin 4.2 g/dL (3.0-4.8) 03/11/18 07:30 Globulin 3.2 gm/dL 03/11/18 07:30 Albumin/Globulin Ratio 1.3 (1.1-1.8) 03/11/18 07:30 Urine Opiates Screen Negative (NEGATIVE) 03/09/18 19:30 Urine Methadone Screen Negative (NEGATIVE) 03/09/18 19:30 Ur Barbiturates Screen Negative (NEGATIVE) 03/09/18 19:30 Ur Phencyclidine Scrn Negative (NEGATIVE) 03/09/18 19:30 Ur Amphetamines Screen Negative (NEGATIVE) 03/09/18 19:30 U Benzodiazepines Scrn Positive (NEGATIVE) H 03/09/18 19:30 U Oth Cocaine Metabols Negative (NEGATIVE) 03/09/18 19:30 U Cannabinoids Screen Negative (NEGATIVE) 03/09/18 19:30 - Hospital Course Hospital Course: 57 yo M with PMH of COPD, HTN, HLD, CAD s/p 5 stents, gastric ulcer, renal cyst, BPH, and EtOH abuse, [place] [facility] [place] discharge from Dr. Mccall service on 03/09/2018 with complaints of dizziness. Patient originally presented to [facility] [place] on 03/08/18 for two day history of left flank pain that radiated to his groin. He reported abdominal pain as well in his left lower quadrant. He was seen by [employer] Dr. Roth where he was evaluated for abdominal pain likely secondary to renal colic. Patient was worked up for abdominal pain etiology by nephrology, general surgery, cardiology. Patient was discharged home after primary team assessed patient to be medically stable. However, upon discharge, patient states that he was walking home on the streets and felt dizzy. Patient reports ongoing problem for past 2 years, has been to ENT, Dr Gee with extensive workup being negative. Patient reports associated left sided hearing "whooshing sounds," and vision problems occasionally. In ED, patient's orthostatic vital signs were positive, CT head negative. Neurology, Dr Cardenas, consulted, MRI brain, CTA head/neck negative. Patient given IV fluids, however his repeat orthostatic vital signs are positive today as well. However, patient reports that he has not had an episode of dizziness since admission. PT barbaraal recommended outpatient physical therapy for dynamic balance training. Patient given compression stockings and started on florinef. Patient will follow up with ENT, opthalmologist in 1-2 weeks.Patient given a script of outpatient PT. Patient seen ambulating well in the hallway. Case seen and discussed with Dr Kebede. Discharge Exam - Head Exam Head Exam: ATRAUMATIC, NORMOCEPHALIC - Eye Exam Eye Exam: EOMI, PERRL. absent: Conjunctival injection, Nystagmus, Scleral icterus Pupil Exam: NORMAL ACCOMODATION, PERRL. absent: Irregular, Miosis, Unequal - ENT Exam ENT Exam: Mucous Membranes Moist - Neck Exam Neck exam: Full Rom - Respiratory Exam Respiratory Exam: Clear to PA & Lateral, NORMAL BREATHING PATTERN. absent: Accessory Muscle Use, Chest Wall Tenderness, Wheezes, Respiratory Distress, Stridor - Cardiovascular Exam Cardiovascular Exam: RRR, +S1, +S2. absent: Systolic Murmur - GI/Abdominal Exam GI & Abdominal Exam: Normal Bowel Sounds, Soft. absent: Distended, Firm, Guarding, Organomegaly, Rebound, Rigid, Tenderness - Extremities Exam Extremities exam: normal inspection - Back Exam Back exam: NORMAL INSPECTION - Neurological Exam Neurological exam: Alert, Oriented x3 - Psychiatric Exam Psychiatric exam: Normal Affect, Normal Mood - Skin Skin Exam: Dry, Normal Color, Warm Discharge Plan - Discharge Medications Prescriptions: Fludrocortisone [Florinef Acetate] 0.1 mg PO DAILY #14 tab - Follow Up Plan Condition: STABLE Disposition: HOME/ ROUTINE Instructions: Vertigo (a Type of Dizziness) (DC), Syncope (Fainting) (DC), Headache, Adult (DC), Near Fainting (DC) Additional Instructions: Follow up with your primary care doctor Dr Mccall in week. Take your home medications as prescribed. As discussed with you, you do not need any refill and already have your home medications. As explained to you, you should stop taking Percocet as it may be contributing to your dizziness. Use compression stockings for your dizziness. You are also prescribed a new medication, Florinef 0.1 mg 1 tablet daily for your dizziness. Follow up with Ear, nose, throat doctors in 1-2 weeks. Follow up with an opthalmologist for your eye symptoms in 1 week. You are also given a script for Outpatient Physical therapy for your neck pain and dynamic balance training. Return to the emergency room for any worsening or return of symptoms. Referrals: Harrison Mccall MD [Staff Provider] - <Neno Kebede - Last Filed: 03/12/18 10:37> Provider - Provider Date of Admission: 03/09/18 18:00 Attending physician: Neno Kebede MD Consults: 03/09/18 18:15 Physician Consult Routine Comment: psych evaluation, paranoid thoughts Consulting Provider: Nishi Lozano Consulting Physician: Nishi Lozano Reason for Consult: psych evaluation, paranoid thoughts 03/09/18 18:17 Physician Consult Routine Comment: dizziness Consulting Provider: Natan Cardenas Consulting Physician: Natan Cardenas Reason for Consult: dizziness 03/09/18 20:22 Physician Consult Routine Comment: Consulting Provider: Natan Cardenas Consulting Physician: Natan Cardenas Reason for Consult: dizziness Hospital Course - Lab Results Lab Results: Most Recent Lab Values WBC 7.4 10^3/uL (4.5-11.0) 03/11/18 07:30 RBC 4.02 10^6/uL (3.5-6.1) 03/11/18 07:30 Hgb 12.7 g/dL (14.0-18.0) L 03/11/18 07:30 Hct 38.9 % (42.0-52.0) L 03/11/18 07:30 MCV 96.8 fl (80.0-105.0) 03/11/18 07:30 MCH 31.6 pg (25.0-35.0) 03/11/18 07:30 MCHC 32.6 g/dl (31.0-37.0) 03/11/18 07:30 RDW 13.8 % (11.5-14.5) 03/11/18 07:30 Plt Count 259 10^3/uL (120.0-450.0) 03/11/18 07:30 MPV 9.3 fl (7.0-11.0) 03/11/18 07:30 Gran % 48.1 % (50.0-68.0) L 03/11/18 07:30 Lymph % (Auto) 36.9 % (22.0-35.0) H 03/11/18 07:30 Ness % (Auto) 7.8 % (1.0-6.0) H 03/11/18 07:30 Eos % (Auto) 6.9 % (1.5-5.0) H 03/11/18 07:30 Baso % (Auto) 0.3 % (0.0-3.0) 03/11/18 07:30 Gran # 3.54 (1.4-6.5) 03/11/18 07:30 Lymph # (Auto) 2.7 (1.2-3.4) 03/11/18 07:30 Ness # (Auto) 0.6 (0.1-0.6) 03/11/18 07:30 Eos # (Auto) 0.5 (0.0-0.7) 03/11/18 07:30 Baso # (Auto) 0.02 K/mm3 (0.0-2.0) 03/11/18 07:30 Sodium 140 mmol/L (132-148) 03/11/18 07:30 Potassium 4.5 mmol/L (3.6-5.0) 03/11/18 07:30 Chloride 105 mmol/L (98-107) 03/11/18 07:30 Carbon Dioxide 31 mmol/L (21-33) 03/11/18 07:30 Anion Gap 8 (10-20) L 03/11/18 07:30 BUN 19 mg/dL (7-21) 03/11/18 07:30 Creatinine 0.9 mg/dl (0.8-1.5) 03/11/18 07:30 Est GFR ( Amer) > 60 03/11/18 07:30 Est GFR (Non-Af Amer) > 60 03/11/18 07:30 Random Glucose 100 mg/dL (70-110) 03/11/18 07:30 Calcium 9.4 mg/dL (8.4-10.5) 03/11/18 07:30 Phosphorus 4.4 mg/dL (2.5-4.5) 03/10/18 06:45 Magnesium 2.2 mg/dL (1.7-2.2) 03/10/18 06:45 Total Bilirubin 0.7 mg/dL (0.2-1.3) 03/11/18 07:30 AST 32 U/L (17-59) 03/11/18 07:30 ALT 27 U/L (7-56) 03/11/18 07:30 Alkaline Phosphatase 51 U/L (38-126) 03/11/18 07:30 Total Protein 7.4 g/dL (5.8-8.3) 03/11/18 07:30 Albumin 4.2 g/dL (3.0-4.8) 03/11/18 07:30 Globulin 3.2 gm/dL 03/11/18 07:30 Albumin/Globulin Ratio 1.3 (1.1-1.8) 03/11/18 07:30 Urine Opiates Screen Negative (NEGATIVE) 03/09/18 19:30 Urine Methadone Screen Negative (NEGATIVE) 03/09/18 19:30 Ur Barbiturates Screen Negative (NEGATIVE) 03/09/18 19:30 Ur Phencyclidine Scrn Negative (NEGATIVE) 03/09/18 19:30 Ur Amphetamines Screen Negative (NEGATIVE) 03/09/18 19:30 U Benzodiazepines Scrn Positive (NEGATIVE) H 03/09/18 19:30 U Oth Cocaine Metabols Negative (NEGATIVE) 03/09/18 19:30 U Cannabinoids Screen Negative (NEGATIVE) 03/09/18 19:30 Attending/Attestation - Attestation I have personally seen and examined this patient.: Yes I have fully participated in the care of the patient.: Yes I have reviewed all pertinent clinical information, including history, physical exam and plan: Yes Notes (Text): 03/11/18 57 year old male with past medical history of COPD, hypertension, CAD s/p stents, gastric ulcer, and BPH who presented with complaint of dizziness. He was discharged from hospital and returned same evening with complaint of dizziness while ambulating. He has been ambulating since admission. CT head was negative. MRI and CTA head/neck which are negative for acute findings or significant stenosis. He was seen by neurology and psychiatry. He was seen by PT who recommended home with services. I have explained to the patient he will need outpatient ENT and ophthalmology evaluation. Orthostatics were positive although he is asymptomatic. He is started on florinef. Patient is discharged home to follow up with pmd. Follow up with GI, cardiology, ENT and ophthalmo. Neno Kebede MD Hospitalist.
== END 2018-03-11 14:09 | disposition home or self-care (01) | DRG 149 ==
LOC: ED 17:11 → ERH 18:00 → 5RSO 03-10 01:38
PROVIDERS: ADMIT Hospitalist; ATTEND Internal Medicine
DX: R42 Dizziness and giddiness (principal); I95.1 Orthostatic hypotension; I25.10 Atherosclerotic heart disease of native coronary artery without angina pectoris; I10 Essential (primary) hypertension; F06.4 Anxiety disorder due to known physiological condition; N40.0 Benign prostatic hyperplasia without lower urinary tract symptoms; F10.10 Alcohol abuse, uncomplicated; J44.9 Chronic obstructive pulmonary disease, unspecified; E78.5 Hyperlipidemia, unspecified; K21.9 Gastro-esophageal reflux disease without esophagitis; N28.1 Cyst of kidney, acquired; R51 Headache; Z95.5 Presence of coronary angioplasty implant and graft; Z86.73 Personal history of transient ischemic attack (TIA), and cerebral infarction without residual deficits; Z87.891 Personal history of nicotine dependence; Z87.11 Personal history of peptic ulcer disease; Z80.8 Family history of malignant neoplasm of other organs or systems

== ENCOUNTER 2018-03-17 00:07 | Emergency (ER) | payer MEDICARE, OTHER ==
[2018-03-17 00:08] VITALS: BMI 24.3
[2018-03-17 00:26] VITALS: RESP 18; O2SAT 100
--- NOTE | 2018-03-17 01:20 | ED PDOC ---
Arrival/HPI - General Chief Complaint: Headache Time Seen by Provider: 03/17/18 01:01 Historian: Patient - History of Present Illness Narrative History of Present Illness (Text): Patient reports headache and left sided neck pain that has been going on for "a while", states "I've been here at least 50 times for this". He has prescriptions with him from his PMD advising seeing neurology and getting an MRI. Giving inconsistent story, for example at one point saying that he can't walk, but then saying that he walked today. Of note, he was recently admitted, discharged several days ago, for the same symptoms. During admission he had CT head, MRI brain, CTA head/neck, which were all negative. Also had neurology consult. Only finding was orthostatic hypotension. Past Medical History - Past History Past History: No Previous - Infectious Disease Hx of Infectious Diseases: None - Tetanus Immunization Tetanus Immunization: Up to Date - Cardiac Hx Cardiac Disorders: Yes - Pulmonary Hx Chronic Obstructive Pulmonary Disease (COPD): No - Neurological Hx Neurological Disorder: Yes Hx Transient Ischemic Attacks (TIA): Yes - HEENT Hx HEENT Disorder: No - Renal Hx Renal Disorder: Yes Other/Comment: Renal cyst, BPH - Endocrine/Metabolic Hx Endocrine Disorders: No - Hematological/Oncological Hx Blood Disorders: No - Integumentary Hx Dermatological Disorder: No - Musculoskeletal/Rheumatological Hx Musculoskeletal Disorders: Yes Hx Falls: No Hx Fractures: Yes ((rib/sternum)) - Gastrointestinal Hx Gastrointestinal Disorders: Yes Hx Gastroesophageal Reflux: Yes Other/Comment: Hepatic Infiltration - Genitourinary/Gynecological Hx Genitourinary Disorders: No - Psychiatric Hx Psychophysiologic Disorder: Yes Hx Anxiety: Yes Hx Depression: Yes Hx Substance Use: No - Past Surgical History Past Surgical History: No Previous - Surgical History Hx Cardiac Catheterization: Yes (x 5 stents) Hx Coronary Stent: Yes - Anesthesia Hx Anesthesia: Yes Hx Anesthesia Reactions: No Hx Malignant Hyperthermia: No - Suicidal Assessment Feels Threatened In Home Enviroment: No Family/Social History - Physician Review Nursing Documentation Reviewed: Yes Family/Social History: Unknown Family HX Smoking Status: Light Smoker < 10 Cigarettes Daily Hx Alcohol Use: No Hx Substance Use: No Hx Substance Use Treatment: No Allergies/Home Meds Allergies/Adverse Reactions: Allergies ciprofloxacin Allergy (Severe, Verified 12/13/17 19:21) NUMBNESS levofloxacin [From Levaquin] Allergy (Verified 12/13/17 19:21) NUMBNESS metronidazole [From Flagyl] Allergy (Verified 12/13/17 19:21) SWELLING Home Medications: Home Meds Medication Instructions Recorded Confirmed RX: Famotidine [Pepcid] 20 mg PO DAILY 03/07/18 03/07/18 RX: Lansoprazole [Prevacid] 30 mg PO DAILY 03/07/18 03/07/18 Review of Systems - Physician Review All systems were reviewed & negative as marked: Yes - Review of Systems Constitutional: Normal Respiratory: Normal Cardiovascular: Normal Gastrointestinal: Normal Musculoskeletal: Normal Skin: Normal Neurological: Headache Physical Exam Vital Signs Reviewed: Yes Vital Signs Temp Pulse Resp BP Pulse Ox 03/17/18 00:22 97.7 F 72 18 167/81 H 100 Temperature: Afebrile Blood Pressure: Hypertensive Pulse: Regular Respiratory Rate: Normal Appearance: Positive for: Well-Appearing, Non-Toxic, Comfortable Mental Status: Positive for: Alert and Oriented X 3 - Systems Exam Head: Present: Atraumatic, Normocephalic Pupils: Present: PERRL Extroacular Muscles: Present: EOMI Conjunctiva: Present: Normal Mouth: Present: Moist Mucous Membranes Neck: Present: Normal Range of Motion, Other (L lateral/paravertebral tenderness). No: Meningeal Signs, MIDLINE TENDERNESS Respiratory/Chest: Present: Clear to Auscultation Cardiovascular: Present: Regular Rate and Rhythm Abdomen: No: Tenderness Back: Present: Normal Inspection Upper Extremity: Present: Normal Inspection, Neurovascularly Intact Lower Extremity: Present: Normal Inspection, Neurovascularly Intact Neurological: Present: GCS=15 Skin: Present: Warm, Dry, Normal Color Psychiatric: Present: Oriented x 3 Medical Decision Making ED Course and Treatment: Patient with multiple visits for the same complaint. Was recently admitted with full neurological workup which was negative. Advised outpatient followup. Return to the ED for significantly worsening or new symptoms. Offered Rx for pain medication, but patient states he has percocet at home. Offered Rx for muscle relaxant as well, given lateral neck pain, and patient states he cannot take them "due to my ulcers". Disposition/Present on Arrival - Present on Arrival Any Indicators Present on Arrival: No History of DVT/PE: No History of Uncontrolled Diabetes: No Urinary Catheter: No History of Decub. Ulcer: No History Surgical Site Infection Following: None - Disposition Have Diagnosis and Disposition been Completed?: Yes Diagnosis: Headache, Dizziness, Neck pain Disposition: HOME/ ROUTINE Disposition Time: 01:13 Condition: STABLE Discharge Instructions (ExitCare): Headache, Adult (DC), Dizziness, Nonvertigo, (DC), Chronic Neck Pain (DC) Additional Instructions: DORY MARINELLI, thank you for letting us take care of you today. Your provider was Shani Magallon MD and you were treated for HEADACHE. The emergency medical care you received today was directed at your acute symptoms. If you were prescribed any medication, please fill it and take as directed. It may take several days for your symptoms to resolve. Return to the Emergency Department if your symptoms worsen, do not improve, or if you have any other problems. Please contact your doctor or call one of the physicians/clinics you have been referred to that are listed on the Patient Visit Information form that is included in your discharge packet. Bring any paperwork you were given at discharge with you along with any medications you are taking to your follow up visit. Our treatment cannot replace ongoing medical care by a primary care provider outside of the emergency department. Thank you for allowing the [facility] team to be part of your care today. If you had an X-Ray or CT scan: A Radiologist will review the ED reading if any change in treatment is needed we will contact you. If you had a blood, urine, or wound culture: It will take several days for the results, if any change in treatment is needed we will contact you. If you had an STI test: It will take 48 hours for the results. Please call after 1 week if you have not heard back. Forms: [employer] (Albanian)
[2018-03-17 01:24] VITALS: BP 148/72; PULSE 75; TEMP 98
== END 2018-03-17 01:24 | disposition home or self-care (01) ==
LOC: ED 00:07
DX: R51 Headache (principal); R42 Dizziness and giddiness; M54.2 Cervicalgia

== ENCOUNTER 2018-03-25 09:35 | Day surgery (SDC) | payer MEDICARE ==
[2018-03-25 11:08] VITALS: RESP 16
[2018-03-25] MEDS ORDERED: Propofol 10 mg/ml Inj (20 ML) ONE ×2 (14:12→14:42)
[2018-03-25] MEDS ORDERED: Midazolam 2 MG/2 ML VIAL ONE (14:12)
[2018-03-25] MEDS ORDERED: Sodium Chloride 0.9% 1,000 ML IV SCH (15:30)
[2018-03-25 16:39] VITALS: BP 120/69; PULSE 68; TEMP 97.4; O2SAT 98
== END 2018-03-25 17:02 | disposition home or self-care (01) ==
LOC: ENDO 09:35
PROVIDERS: ATTEND Internal Medicine Gastroenterology
DX: K26.9 Duodenal ulcer, unspecified as acute or chronic, without hemorrhage or perforation (principal); K44.9 Diaphragmatic hernia without obstruction or gangrene; K28.9 Gastrojejunal ulcer, unspecified as acute or chronic, without hemorrhage or perforation; I25.10 Atherosclerotic heart disease of native coronary artery without angina pectoris
CPT/HCPCS: 43239; 88305; 88342; J2001; J2250; J2704; J7030; J7040

== ENCOUNTER 2018-04-04 11:18 | Outpatient (CLI) | payer MEDICARE, OTHER | END 2018-04-04 11:19 | disposition home or self-care (01) | LOC: LAB 11:18 ==

== ENCOUNTER 2018-05-05 01:07 | Observation (INO) | payer MEDICARE, OTHER ==
[2018-05-05 01:07] VITALS: BMI 24.3
--- NOTE | 2018-05-05 01:41 | ED PDOC ---
Arrival/HPI - General Chief Complaint: Abdominal Pain Time Seen by Provider: 05/05/18 01:09 Historian: Patient - History of Present Illness Narrative History of Present Illness (Text): 05/05/18 01:15 Anuel Whitt is a 58 year old male, whose past medical history includes COPD, hypertension, hyperlipidemia, CAD s/p multiple cardiac stents, gastric ulcer, renal cyst, BPH, and alcohol abuse, who presents to the emergency depar tment sent by his PMD for hospital admission for evaluation of a colonic mass found on a recent outpatient MRI. Patient denies any fever, chills, chest pain, shortness of breath, abdominal pain, nausea, vomiting, diarrhea, urinary symptoms, back pain, neck pain, headache, dizziness, or any other complaints. PMD: Dr. Mccall Symptom Onset: Gradual Symptom Course: Unchanged Activities at Onset: Light Context: Home Past Medical History - Provider Review Nursing Documentation Reviewed: Yes - Past History Past History: No Previous - Infectious Disease Hx of Infectious Diseases: None - Tetanus Immunization Tetanus Immunization: Up to Date - Cardiac Hx Hypertension: Yes - Pulmonary Hx Respiratory Disorders: No - Neurological Hx Transient Ischemic Attacks (TIA): Yes - HEENT Hx HEENT Disorder: No - Renal Hx Renal Disorder: Yes - Endocrine/Metabolic Hx Endocrine Disorders: No - Hematological/Oncological Hx Blood Transfusions: No Hx Blood Transfusion Reaction: No - Integumentary Hx Dermatological Disorder: No - Musculoskeletal/Rheumatological Hx Fractures: Yes ((rib/sternum)) - Gastrointestinal Hx Diverticulitis: Yes Hx Gastrointestinal Ulcer: Yes Hx Pancreatitis: (pt denies) Other/Comment: duoduenal ulcers - Genitourinary/Gynecological Hx Genitourinary Disorders: No - Psychiatric Hx Anxiety: Yes Hx Depression: Yes Hx Substance Use: No - Past Surgical History Past Surgical History: No Previous - Surgical History Hx Coronary Stent: Yes (x4) - Anesthesia Hx Anesthesia Reactions: No Hx Malignant Hyperthermia: No - Suicidal Assessment Feels Threatened In Home Enviroment: No Family/Social History - Physician Review Nursing Documentation Reviewed: Yes Family/Social History: Unknown Family HX Smoking Status: Light Smoker < 10 Cigarettes Daily Hx Alcohol Use: Yes Hx Substance Use: No Hx Substance Use Treatment: No Allergies/Home Meds Allergies/Adverse Reactions: Allergies ciprofloxacin Allergy (Severe, Verified 05/05/18 01:14) NUMBNESS levofloxacin [From Levaquin] Allergy (Verified 05/05/18 01:14) NUMBNESS metronidazole [From Flagyl] Allergy (Verified 05/05/18 01:14) SWELLING Home Medications: Home Meds Medication Instructions Recorded Confirmed Famotidine [Pepcid] 20 mg PO DAILY 03/07/18 05/05/18 Lansoprazole [Prevacid] 30 mg PO DAILY 03/07/18 05/05/18 diaZEpam [Valium] 5 mg PO PRN PRN 03/21/18 05/05/18 Oxycodone HCl/Acetaminophen 1 tab PO PRN PRN 03/25/18 05/05/18 [Oxycodone-Acetaminophen 5-325] Review of Systems - Physician Review All systems were reviewed & negative as marked: Yes - Review of Systems Constitutional: Normal. absent: Fevers Eyes: Normal ENT: Normal Respiratory: Normal. absent: SOB, Cough Cardiovascular: Normal. absent: Chest Pain Gastrointestinal: Normal. absent: Abdominal Pain, Diarrhea, Nausea, Vomiting Genitourinary Male: Normal. absent: Dysuria, Frequency, Hematuria, Urinary Output Changes Musculoskeletal: Normal. absent: Back Pain, Neck Pain Skin: Normal. absent: Rash Neurological: Normal. absent: Headache, Dizziness Endocrine: Normal Hemo/Lymphatic: Normal Psychiatric: Normal Physical Exam Vital Signs Reviewed: Yes Vital Signs Temp Pulse Resp BP Pulse Ox 05/05/18 01:14 98.0 F 94 H 16 129/67 97 Temperature: Afebrile Blood Pressure: Normal Pulse: Regular Respiratory Rate: Normal Appearance: Positive for: Well-Appearing, Non-Toxic, Comfortable Pain Distress: None Mental Status: Positive for: Alert and Oriented X 3 - Systems Exam Head: Present: Atraumatic, Normocephalic Pupils: Present: PERRL Extroacular Muscles: Present: EOMI Conjunctiva: Present: Normal Mouth: Present: Moist Mucous Membranes Neck: Present: Normal Range of Motion Respiratory/Chest: Present: Clear to Auscultation, Good Air Exchange. No: Respiratory Distress, Accessory Muscle Use Cardiovascular: Present: Regular Rate and Rhythm, Normal S1, S2. No: Murmurs Abdomen: No: Tenderness, Distention, Peritoneal Signs Back: Present: Normal Inspection Upper Extremity: Present: Normal Inspection. No: Cyanosis, Edema Lower Extremity: Present: Normal Inspection. No: Edema Neurological: Present: GCS=15, CN II-XII Intact, Speech Normal Skin: Present: Warm, Dry, Normal Color. No: Rashes Psychiatric: Present: Alert, Oriented x 3, Normal Insight, Normal Concentration Medical Decision Making ED Course and Treatment: 05/05/18 01:15 Impression: 58 year old male sent by PMD for hospital admission for evaluation of colonic mass. Plan: -- EKG -- CXR -- Labs, cardiac enzymes, lipase, amylase -- UA -- Reassess and disposition Prior Visits: Notes and results from previous visits were reviewed. Progress Notes: Reviewed EKG, NSR at [address]-segment elevations or depressions, no T-wave inversions, normal intervals. - RAD Interpretation Radiology Orders: 05/05/18 01:18 CHEST PORTABLE [RAD] Stat - Scribe Statement The provider has reviewed the documentation as recorded by the Darcyibjerrod Stone Provider Scribe Attestation: All medical record entries made by the Scribe were at my direction and personally dictated by me. I have reviewed the chart and agree that the record accurately reflects my personal performance of the history, physical exam, medical decision making, and the department course for this patient. I have also personally directed, reviewed, and agree with the discharge instructions and disposition. Disposition/Present on Arrival - Present on Arrival Any Indicators Present on Arrival: No History of DVT/PE: No History of Uncontrolled Diabetes: No Urinary Catheter: No History of Decub. Ulcer: No History Surgical Site Infection Following: None - Disposition Have Diagnosis and Disposition been Completed?: Yes Diagnosis: Colonic mass Disposition: HOSPITALIZED Disposition Time: :20 Condition: GOOD
[2018-05-05 02:01] LABS: BASO # 0.03 K/mm3 (0.0-2.0); BASO % 0.4 % (0.0-3.0); EOS # 0.2 (0.0-0.7); EOS % 2.4 % (1.5-5.0); HEMOGLOBIN 13.9 g/dL (14.0-18.0); LYMPH # 2.1 (1.2-3.4); LYMPH % 26.2 % (22.0-35.0); MEAN CELL VOLUME 94.2 fl (80.0-105.0); MEAN CORPUSCULAR HEMOGLOBIN 32.4 pg (25.0-35.0); MEAN CORPUSCULAR HGB CONC 34.4 g/dl (31.0-37.0); MEAN PLATELET VOLUME 9.4 fl (7.0-11.0); MONO # 0.6 (0.1-0.6); RBC 4.29 10^6/uL (3.5-6.1); RED CELL DISTRIBUTION WIDTH 13.6 % (11.5-14.5)
[2018-05-05 02:10] LABS: INR 0.95; PARTIAL THROMBOPLASTIN TIME 29.5 Seconds (26.9-38.3); PROTHROMBIN TIME 10.6 SECONDS (9.4-12.5)
[2018-05-05] MEDS ORDERED: Sodium Chloride 0.9% 1,000 ML IV STA (02:10)
[2018-05-05 02:30] LABS: URINE BILIRUBIN NEGATIVE (NEGATIVE); URINE BLOOD TRACE-LYSED (NEGATIVE); URINE GLUCOSE (UA) NEGATIVE (NEGATIVE); URINE LEUKOCYTE ESTERASE NEGATIVE Leu/uL (NEGATIVE); URINE PROTEIN NEGATIVE mg/dL (<30 mg/dL); URINE UROBILINOGEN 0.2 E.U./dL (<1 E.U./dL)
[2018-05-05 02:42] LABS: URINE APPEARANCE CLEAR (CLEAR); URINE COLOR YELLOW (YELLOW)
[2018-05-05 02:46] LABS: ALB/GLOB RATIO 1.3 (1.1-1.8); ALBUMIN 4.3 g/dL (3.0-4.8); ALT/SGPT 13 U/L (7-56); AMYLASE 91 U/L (35-125); AST/SGOT 34 U/L (17-59); BLOOD UREA NITROGEN 14 mg/dL (7-21); CALCIUM 9.1 mg/dL (8.4-10.5); GFR NON-AFRICAN AMERICAN > 60; LIPASE 111 U/L (23-300)
[2018-05-05 02:48] LABS: URINE EPITHELIAL CELLS 0 - 2 /hpf (0-5); URINE RBC 0 - 2 /hpf (0-2); URINE WBC 0 - 2 /hpf (0-6)
[2018-05-05 02:56] LABS: TROPONIN I < 0.01 ng/mL
[2018-05-05] MEDS ORDERED: Multivitamin (MVI) 10 ML, Thiamine 100 MG, Folic Acid 1 MG in Sodium Chloride 0.9% 1,00... IV ONE (03:38)
[2018-05-05] MEDS: Acetaminophen 160 mg/5 ml UD PO PRN (04:42)
--- NOTE | 2018-05-05 08:01 | CP.PCM.CON ---
<Julio Cesar Umaña - Last Filed: 05/05/18 11:23> History of Present Illness - History of Present Illness History of Present Illness: Julio Cesar Umaña PGY2 GI Consult Note for Dr. Verdugo Reason for consult: colonic mass Mr. Whitt is a 58 year old male with a PMH of CAD s/p multiple stents, CVA w/ no residual deficits, multiple non-bleeding duodenal and jejunal ulcers, esophagitis/gastritis, hiatal hernia, diverticulosis, internal hemorrhoids, hyperlipidemia, orthostatic hypotension, depression and anxiety who is admitted for imaging findings done as outpatient. GI consulted for colonic mass. The patient has had complaints of abdominal pain for 2 years and has received outpatient work-up including multiple imaging modalities as well as EGD/colonoscopies with no definitive diagnosis. Patient states that he has left sided abdominal pain that is worsened after eating, but not directly linked to what type of food he eats. He admits to a 14 lb weight loss over the past 2 months but denies any stool frequency or form changes, and denies any blood in t he stools, or any any vomiting/diarrhea. Patient has seen Dr. Verdugo as outpatient and been scoped. Patient does admit to heavy etoh drinking, including 14 beers the day before presentation. 12-pt ROS was reviewed and is otherwise unremarkable. MRE 04/2018: sigmoid and rectal changes of inflammation, mass like region of enhancement at anorectal junction SB enterescopy 03/2018: multiple non-bleeding duodenal ulcers, multiple non- bleeding jejunal ulcers, hiatal hernia Colonoscopy 11/2017: diverticulosis, internal hemorrhoids, multiple polpys (biopsied) EGD 11/2017: hiatal hernia, esophagitis, gastritis, descending multiple non- bleeding duodenal ulcers Celiac disease, IBD, gastrinoma work-up has been negative so far PMD: Dr. Mccall PMH: as above PSH: lung bx Meds: as per MAR Allergies: reviewed; poor tolerance to meds, no allergic rxns SHx: heavy tobacco and EtOH use FHx: sister w/ thyroid CA, mother w/ colon/liver CA Review of Systems - Review of Systems All systems: reviewed and no additional remarkable complaints except (as per HPI) Past Patient History - Infectious Disease Hx of Infectious Diseases: None - Tetanus Immunizations Tetanus Immunization: Up to Date - Past Medical History & Family History Past Medical History?: Yes - Past Social History Smoking Status: Heavy Smoker > 10 Cigarettes Daily Alcohol: > 2 Drinks/Day Drugs: Denies - CARDIAC Hx Cardiac Disorders: Yes Hx Hypercholesterolemia: Yes (high lipids) Hx Hypertension: Yes Other/Comment: cardiac stent - PULMONARY Hx Respiratory Disorders: No Other/Comment: current smoker - NEUROLOGICAL Hx Neurological Disorder: Yes Hx Dizziness: Yes Hx Transient Ischemic Attacks (TIA): Yes - HEENT Hx HEENT Problems: No - RENAL Hx Chronic Kidney Disease: Yes Other/Comment: renal cyst - ENDOCRINE/METABOLIC Hx Endocrine Disorders: No - HEMATOLOGICAL/ONCOLOGICAL Hx Blood Disorders: No - INTEGUMENTARY Hx Dermatological Problems: No Other/Comment: tatoos - MUSCULOSKELETAL/RHEUMATOLOGICAL Hx Musculoskeletal Disorders: No Hx Falls: Yes - GASTROINTESTINAL Hx Gastrointestinal Disorders: Yes Hx Diverticulitis: Yes Hx Ulcer: Yes - GENITOURINARY/GYNECOLOGICAL Hx Genitourinary Disorders: No - PSYCHIATRIC Hx Psychophysiologic Disorder: Yes Hx Anxiety: Yes Hx Depression: Yes - SURGICAL HISTORY Hx Surgeries: Yes Hx Cardiac Catheterization: Yes (x 5 stents) Hx Coronary Stent: Yes (x4) Other/Comment: saphenous vein removed - ANESTHESIA Hx Anesthesia Reactions: No Hx Malignant Hyperthermia: No Meds Allergies/Adverse Reactions: Allergies Allergy/AdvReac Type Severity Reaction Status Date / Time ciprofloxacin Allergy Severe NUMBNESS Verified 05/05/18 01:14 levofloxacin [From Levaquin] Allergy NUMBNESS Verified 05/05/18 01:14 metronidazole [From Flagyl] Allergy SWELLING Verified 05/05/18 01:14 - Medications Medications: Current Medications Acetaminophen (Tylenol 160mg/5ml Oral Soln) 320 mg PO Q4 PRN PRN Reason: Pain, Mild (1-3) Last Admin: 05/05/18 04:42 Dose: 320 mg Sodium Chloride (Sodium Chloride 0.9%) 1,000 mls @ 100 mls/hr IV .Q10H STA Stop: 05/05/18 12:09 Last Admin: 05/05/18 02:20 Dose: 100 mls/hr Multivitamins/Vitamin C 10 ml/Thiamine HCl 100 mg/ Folic Acid 1 mg/ Sodium Chloride 1,011.2 mls @ 100 mls/hr IV .Q10H7M ONE Stop: 05/05/18 13:44 Last Admin: 05/05/18 04:06 Dose: 100 mls/hr Lorazepam (Ativan) 0.5 mg PO TID [facility]; Protocol Physical Exam - Constitutional Appears: Well, Non-toxic, No Acute Distress - Head Exam Head Exam: ATRAUMATIC, NORMAL INSPECTION, NORMOCEPHALIC - Eye Exam Eye Exam: EOMI, Normal appearance, PERRL Pupil Exam: NORMAL ACCOMODATION, PERRL - ENT Exam ENT Exam: Mucous Membranes Moist, Normal Exam - Neck Exam Neck exam: Positive for: Full Rom, Normal Inspection - Respiratory Exam Respiratory Exam: Clear to Auscultation Bilateral, NORMAL BREATHING PATTERN. absent: Wheezes - Cardiovascular Exam Cardiovascular Exam: REGULAR RHYTHM, +S1, +S2 - GI/Abdominal Exam GI & Abdominal Exam: Normal Bowel Sounds, Soft. absent: Distended, Guarding, Tenderness - Rectal Exam Rectal Exam: Hemorrhoids, NORMAL INSPECTION. absent: Black Stool, Bloody Stool, Fecal Impaction Additional comments: no masses noted - Extremities Exam Extremities exam: Positive for: normal inspection. Negative for: pedal edema, tenderness - Back Exam Back exam: FULL ROM, NORMAL INSPECTION - Neurological Exam Neurological exam: Alert, CN II-XII Intact, Normal Gait, Oriented x3, Reflexes Normal - Psychiatric Exam Psychiatric exam: Normal Affect, Normal Mood - Skin Skin Exam: Dry, Intact, Normal Color, Warm Results - Vital Signs Recent Vital Signs: Last Vital Signs Temp 98.0 F 05/05/18 01:14 Pulse 86 05/05/18 02:31 Resp 20 05/05/18 02:34 BP 105/67 05/05/18 02:31 Pulse Ox 98 05/05/18 02:31 - Labs Result Diagrams: 05/05/18 01:25 05/05/18 01:25 Labs: Laboratory Results - last 24 hr 05/05/18 05/05/18 05/05/18 01:25 01:25 01:25 WBC 8.0 RBC 4.29 Hgb 13.9 L Hct 40.4 L MCV 94.2 MCH 32.4 MCHC 34.4 RDW 13.6 Plt Count 281 MPV 9.4 Neut % (Auto) 64.0 Lymph % (Auto) 26.2 [place] % (Auto) 7.0 H Eos % (Auto) 2.4 Baso % (Auto) 0.4 Lymph # (Auto) 2.1 [place] # (Auto) 0.6 Eos # (Auto) 0.2 Baso # (Auto) 0.03 Absolute Neuts (auto) 5.13 PT 10.6 INR 0.95 APTT 29.5 Sodium 138 Potassium 3.6 Chloride 101 Carbon Dioxide 24 Anion Gap 16 BUN 14 Creatinine 0.7 L Est GFR ( Amer) > 60 Est GFR (Non-Af Amer) > 60 POC Glucose (mg/dL) Random Glucose 90 Calcium 9.1 Total Bilirubin 0.4 AST 34 ALT 13 Alkaline Phosphatase 53 Lactate Dehydrogenase 366 Total Creatine Kinase 78 Troponin I < 0.01 Total Protein 7.6 Albumin 4.3 Globulin 3.3 Albumin/Globulin Ratio 1.3 Amylase 91 Lipase 111 Urine Color Urine Appearance Urine pH Ur Specific [place] Urine Protein Urine Glucose (UA) Urine Ketones Urine Blood Urine Nitrate Urine Bilirubin Urine Urobilinogen Ur Leukocyte Esterase Urine RBC Urine WBC Ur Epithelial Cells Urine Bacteria 05/05/18 05/05/18 05/05/18 01:43 03:53 05:47 WBC RBC Hgb Hct MCV MCH MCHC RDW Plt Count MPV Neut % (Auto) Lymph % (Auto) [place] % (Auto) Eos % (Auto) Baso % (Auto) Lymph # (Auto) [place] # (Auto) Eos # (Auto) Baso # (Auto) Absolute Neuts (auto) PT INR APTT Sodium Potassium Chloride Carbon Dioxide Anion Gap BUN Creatinine Est GFR ( Amer) Est GFR (Non-Af Amer) POC Glucose (mg/dL) 83 82 Random Glucose Calcium Total Bilirubin AST ALT Alkaline Phosphatase Lactate Dehydrogenase Total Creatine Kinase Troponin I Total Protein Albumin Globulin Albumin/Globulin Ratio Amylase Lipase Urine Color Yellow Urine Appearance Clear Urine pH 6.0 Ur Specific [place] 1.010 Urine Protein Negative Urine Glucose (UA) Negative Urine Ketones Negative Urine Blood Trace-lysed H Urine Nitrate Negative Urine Bilirubin Negative Urine Urobilinogen 0.2 Ur Leukocyte Esterase Negative Urine RBC 0 - 2 Urine WBC 0 - 2 Ur Epithelial Cells 0 - 2 Urine Bacteria None Assessment & Plan - Assessment and Plan (Free Text) Assessment: 58 year old male with a PMH of CAD s/p multiple stents, CVA w/ no residual deficits, multiple non-bleeding duodenal and jejunal ulcers, esophagitis/gastritis, hiatal hernia, diverticulosis, internal hemorrhoids, hyperlipidemia, orthostatic hypotension, depression and anxiety who is admitted for imaging findings of recto-sigmoid inflammation and an anorectal mass. GI consulted for colonic mass. abdominal pain, differential includes ischemic and inflammatory etiology anorectal mass, will need to r/o malignancy multiple small bowel ulcers Plan: - CLD - golytely to prep for flex/sig; half today and half tomorrow - flex/sig planned for tomorrow - NPO past mn - will discuss with Dr. Greg Mcgregor regarding need for imaging to evaluate for ischemic colitis - PTX Q12 - Labs and prior charts were reviewed - further recs per Dr. Verdugo Case was reviewed and discussed with attending, Dr. Verdugo <Judith Verdugo V - Last Filed: 05/05/18 22:20> Meds - Medications Medications: Current Medications Acetaminophen (Tylenol 160mg/5ml Oral Soln) 320 mg PO Q4 PRN PRN Reason: Pain, Mild (1-3) Last Admin: 05/05/18 04:42 Dose: 320 mg Atorvastatin Calcium (Lipitor) 40 mg PO DIN L[facility] Last Admin: 05/05/18 18:16 Dose: 40 mg Famotidine (Pepcid) 20 mg PO DAILY [facility] Last Admin: 05/05/18 10:43 Dose: 20 mg Lorazepam (Ativan) 0.5 mg PO TID [facility]; Protocol Last Admin: 05/05/18 18:23 Dose: 0.5 mg Pantoprazole Sodium (Protonix Inj) 40 mg IVP Q12 LONA Last Admin: 05/05/18 22:04 Dose: Not Given Sodium Cl/Sod Bicarb/Potass Cl/PEG (Nulytely With Flavor Packs Vanessa) 2,000 ml PO ONCE ONE Stop: 05/06/18 06:01 Results - Vital Signs Recent Vital Signs: Last Vital Signs Temp 98.2 F 05/05/18 08:25 Pulse 76 05/05/18 18:00 Resp 18 05/05/18 08:25 BP 117/64 05/05/18 08:25 Pulse Ox 95 05/05/18 08:25 - Labs Result Diagrams: 05/05/18 01:25 05/05/18 01:25 Labs: Laboratory Results - last 24 hr 05/05/18 05/05/18 05/05/18 01:25 01:25 01:25 WBC 8.0 RBC 4.29 Hgb 13.9 L Hct 40.4 L MCV 94.2 MCH 32.4 MCHC 34.4 RDW 13.6 Plt Count 281 MPV 9.4 Neut % (Auto) 64.0 Lymph % (Auto) 26.2 [place] % (Auto) 7.0 H Eos % (Auto) 2.4 Baso % (Auto) 0.4 Lymph # (Auto) 2.1 [place] # (Auto) 0.6 Eos # (Auto) 0.2 Baso # (Auto) 0.03 Absolute Neuts (auto) 5.13 PT 10.6 INR 0.95 APTT 29.5 Sodium 138 Potassium 3.6 Chloride 101 Carbon Dioxide 24 Anion Gap 16 BUN 14 Creatinine 0.7 L Est GFR ( Amer) > 60 Est GFR (Non-Af Amer) > 60 POC Glucose (mg/dL) Random Glucose 90 Calcium 9.1 Total Bilirubin 0.4 AST 34 ALT 13 Alkaline Phosphatase 53 Lactate Dehydrogenase 366 Total Creatine Kinase 78 Troponin I < 0.01 Total Protein 7.6 Albumin 4.3 Globulin 3.3 Albumin/Globulin Ratio 1.3 Amylase 91 Lipase 111 Urine Color Urine Appearance Urine pH Ur Specific [place] Urine Protein Urine Glucose (UA) Urine Ketones Urine Blood Urine Nitrate Urine Bilirubin Urine Urobilinogen Ur Leukocyte Esterase Urine RBC Urine WBC Ur Epithelial Cells Urine Bacteria 05/05/18 05/05/18 05/05/18 01:43 03:53 05:47 WBC RBC Hgb Hct MCV MCH MCHC RDW Plt Count MPV Neut % (Auto) Lymph % (Auto) [place] % (Auto) Eos % (Auto) Baso % (Auto) Lymph # (Auto) [place] # (Auto) Eos # (Auto) Baso # (Auto) Absolute Neuts (auto) PT INR APTT Sodium Potassium Chloride Carbon Dioxide Anion Gap BUN Creatinine Est GFR ( Amer) Est GFR (Non-Af Amer) POC Glucose (mg/dL) 83 82 Random Glucose Calcium Total Bilirubin AST ALT Alkaline Phosphatase Lactate Dehydrogenase Total Creatine Kinase Troponin I Total Protein Albumin Globulin Albumin/Globulin Ratio Amylase Lipase Urine Color Yellow Urine Appearance Clear Urine pH 6.0 Ur Specific [place] 1.010 Urine Protein Negative Urine Glucose (UA) Negative Urine Ketones Negative Urine Blood Trace-lysed H Urine Nitrate Negative Urine Bilirubin Negative Urine Urobilinogen 0.2 Ur Leukocyte Esterase Negative Urine RBC 0 - 2 Urine WBC 0 - 2 Ur Epithelial Cells 0 - 2 Urine Bacteria None Attending/Attestation - Attestation I have personally seen and examined this patient.: Yes I have fully participated in the care of the patient.: Yes I have reviewed all pertinent clinical information: Yes Notes (Text): This is an addendum to GI consult report dictated by the bacteriologist medical. The patient was seen and examined earlier. Medical records, lab studies, imagings were reviewed. Last 24 hours events reviewed. Agreed with the above treatment plan as outlined in resident's notes with the addition of the following Patient still complaining of left upper quadrant pain extending to the back Denies any left lower quadrant discomfort. Rectal examination done by the resident was noted Schedule for a flexible sigmoidoscopy in a.m. Will discuss with the vascular radiologist regarding vascular imaging Continue clear liquid diet 05/05/18 22:16
[2018-05-05] MEDS ORDERED: Peg-Electrolyte Oral Soln 4L (Golytely) PO ONE (09:28)
--- NOTE | 2018-05-05 11:14 | CARD ---
APPROVED REPORT Date of service: 05/05/2018 EKG Measurement Heart [id number] <Conclusion> Normal sinus rhythm Normal ECG
--- NOTE | 2018-05-05 11:38 | CP.PCM.CON ---
History of Present Illness - History of Present Illness History of Present Illness: Calliefitz Damico PGY1 Consult note for Dr. Handy Pt is a 58yo M with PMH of CAD s/p multiple stents, CVA w/ no residual deficits, multiple non-bleeding duodenal and jejunal ulcers, esophagitis/gastritis, hiatal hernia, diverticulosis, internal hemorrhoids, hyperlipidemia, orthostatic hypotension, depression and anxiety sent to ED for f/u on MRE results that showed mass at anorectal junction. Surgery was consulted for evaluation. He complains of generalized L sided body pain with some focal LLQ abdominal pain for the past year, which has been radiating up to the flank region for the past 7 months and is constant and aching in nature. Denies hematochezia, changes in stool caliber. Admits to 14-pound weight loss over the course of 1.5 months. MRE 04/2018: sigmoid and rectal changes of inflammation, mass like region of enhancement at anorectal junction SB enterescopy 03/2018: multiple non-bleeding duodenal ulcers, multiple non- bleeding jejunal ulcers, hiatal hernia Colonoscopy 11/2017: diverticulosis, internal hemorrhoids, multiple polpys (biopsied) EGD 11/2017: hiatal hernia, esophagitis, gastritis, descending multiple non- bleeding duodenal ulcers Celiac disease, IBD, gastrinoma work-up has been negative so far PMD: Cal PSH: lung bx Meds: as per APR Allergies: as per APR SHx: heavy tobacco and EtOH use FHx: sister w/ thyroid CA, mother w/ colon/liver CA Review of Systems - Constitutional Constitutional: Weight Loss - Gastrointestinal Gastrointestinal: Abdominal Pain. absent: Diarrhea, Hematochezia, Nausea - Genitourinary Genitourinary: Flank Pain. absent: Dysuria - Musculoskeletal Musculoskeletal: Myalgias Past Patient History - Infectious Disease Hx of Infectious Diseases: None - Tetanus Immunizations Tetanus Immunization: Up to Date - Past Medical History & Family History Past Medical History?: Yes - Past Social History Smoking Status: Heavy Smoker > 10 Cigarettes Daily Alcohol: > 2 Drinks/Day Drugs: Denies - CARDIAC Hx Cardiac Disorders: Yes Hx Hypercholesterolemia: Yes (high lipids) Hx Hypertension: Yes Other/Comment: cardiac stent - PULMONARY Hx Respiratory Disorders: No Other/Comment: current smoker - NEUROLOGICAL Hx Neurological Disorder: Yes Hx Dizziness: Yes Hx Transient Ischemic Attacks (TIA): Yes - HEENT Hx HEENT Problems: No - RENAL Hx Chronic Kidney Disease: Yes Other/Comment: renal cyst - ENDOCRINE/METABOLIC Hx Endocrine Disorders: No - HEMATOLOGICAL/ONCOLOGICAL Hx Blood Disorders: No - INTEGUMENTARY Hx Dermatological Problems: No Other/Comment: tatoos - MUSCULOSKELETAL/RHEUMATOLOGICAL Hx Musculoskeletal Disorders: No Hx Falls: Yes - GASTROINTESTINAL Hx Gastrointestinal Disorders: Yes Hx Diverticulitis: Yes Hx Ulcer: Yes - GENITOURINARY/GYNECOLOGICAL Hx Genitourinary Disorders: No - PSYCHIATRIC Hx Psychophysiologic Disorder: Yes Hx Anxiety: Yes Hx Depression: Yes - SURGICAL HISTORY Hx Surgeries: Yes Hx Cardiac Catheterization: Yes (x 5 stents) Hx Coronary Stent: Yes (x4) Other/Comment: saphenous vein removed - ANESTHESIA Hx Anesthesia Reactions: No Hx Malignant Hyperthermia: No Meds Allergies/Adverse Reactions: Allergies Allergy/AdvReac Type Severity Reaction Status Date / Time ciprofloxacin Allergy Severe NUMBNESS Verified 05/05/18 01:14 levofloxacin [From Levaquin] Allergy NUMBNESS Verified 05/05/18 01:14 metronidazole [From Flagyl] Allergy SWELLING Verified 05/05/18 01:14 - Medications Medications: Current Medications Acetaminophen (Tylenol 160mg/5ml Oral Soln) 320 mg PO Q4 PRN PRN Reason: Pain, Mild (1-3) Last Admin: 05/05/18 04:42 Dose: 320 mg Atorvastatin Calcium (Lipitor) 40 mg PO DIN LONA Famotidine (Pepcid) 20 mg PO DAILY [facility] Last Admin: 05/05/18 10:43 Dose: 20 mg Sodium Chloride (Sodium Chloride 0.9%) 1,000 mls @ 100 mls/hr IV .Q10H STA Stop: 05/05/18 12:09 Last Admin: 05/05/18 02:20 Dose: 100 mls/hr Multivitamins/Vitamin C 10 ml/Thiamine HCl 100 mg/ Folic Acid 1 mg/ Sodium Chloride 1,011.2 mls @ 100 mls/hr IV .Q10H7M ONE Stop: 05/05/18 13:44 Last Admin: 05/05/18 04:06 Dose: 100 mls/hr Lorazepam (Ativan) 0.5 mg PO TID [facility]; Protocol Last Admin: 05/05/18 10:01 Dose: 0.5 mg Pantoprazole Sodium (Protonix Inj) 40 mg IVP Q12 LONA Sodium Cl/Sod Bicarb/Potass Cl/PEG (Nulytely With Flavor Packs Vanessa) 2,000 ml PO ONCE ONE Stop: 05/06/18 06:01 Physical Exam - Constitutional Appears: Well, No Acute Distress - Head Exam Head Exam: ATRAUMATIC, NORMOCEPHALIC - Eye Exam Eye Exam: EOMI, Normal appearance - ENT Exam ENT Exam: Normal Exam - Neck Exam Neck exam: Positive for: Normal Inspection - Respiratory Exam Respiratory Exam: Clear to Auscultation Bilateral, NORMAL BREATHING PATTERN - Cardiovascular Exam Cardiovascular Exam: REGULAR RHYTHM, +S1, +S2. absent: Gallop, Rubs, Systolic Murmur - GI/Abdominal Exam GI & Abdominal Exam: Normal Bowel Sounds, Soft. absent: Distended, Rebound, Tenderness Additional comments: no suprapubic tenderness - Extremities Exam Extremities exam: Positive for: normal inspection. Negative for: pedal edema - Back Exam Back exam: absent: CVA tenderness (L), CVA tenderness (R) - Neurological Exam Neurological exam: Alert, Oriented x3 Results - Vital Signs Recent Vital Signs: Last Vital Signs Temp 98.2 F 05/05/18 08:25 Pulse 64 05/05/18 10:00 Resp 18 05/05/18 08:25 BP 117/64 05/05/18 08:25 Pulse Ox 95 05/05/18 08:25 - Labs Result Diagrams: 05/05/18 01:25 05/05/18 01:25 Labs: Laboratory Results - last 24 hr 05/05/18 05/05/18 05/05/18 01:25 01:25 01:25 WBC 8.0 RBC 4.29 Hgb 13.9 L Hct 40.4 L MCV 94.2 MCH 32.4 MCHC 34.4 RDW 13.6 Plt Count 281 MPV 9.4 Neut % (Auto) 64.0 Lymph % (Auto) 26.2 [place] % (Auto) 7.0 H Eos % (Auto) 2.4 Baso % (Auto) 0.4 Lymph # (Auto) 2.1 [place] # (Auto) 0.6 Eos # (Auto) 0.2 Baso # (Auto) 0.03 Absolute Neuts (auto) 5.13 PT 10.6 INR 0.95 APTT 29.5 Sodium 138 Potassium 3.6 Chloride 101 Carbon Dioxide 24 Anion Gap 16 BUN 14 Creatinine 0.7 L Est GFR ( Amer) > 60 Est GFR (Non-Af Amer) > 60 POC Glucose (mg/dL) Random Glucose 90 Calcium 9.1 Total Bilirubin 0.4 AST 34 ALT 13 Alkaline Phosphatase 53 Lactate Dehydrogenase 366 Total Creatine Kinase 78 Troponin I < 0.01 Total Protein 7.6 Albumin 4.3 Globulin 3.3 Albumin/Globulin Ratio 1.3 Amylase 91 Lipase 111 Urine Color Urine Appearance Urine pH Ur Specific [place] Urine Protein Urine Glucose (UA) Urine Ketones Urine Blood Urine Nitrate Urine Bilirubin Urine Urobilinogen Ur Leukocyte Esterase Urine RBC Urine WBC Ur Epithelial Cells Urine Bacteria 05/05/18 05/05/18 05/05/18 01:43 03:53 05:47 WBC RBC Hgb Hct MCV MCH MCHC RDW Plt Count MPV Neut % (Auto) Lymph % (Auto) [place] % (Auto) Eos % (Auto) Baso % (Auto) Lymph # (Auto) [place] # (Auto) Eos # (Auto) Baso # (Auto) Absolute Neuts (auto) PT INR APTT Sodium Potassium Chloride Carbon Dioxide Anion Gap BUN Creatinine Est GFR ( Amer) Est GFR (Non-Af Amer) POC Glucose (mg/dL) 83 82 Random Glucose Calcium Total Bilirubin AST ALT Alkaline Phosphatase Lactate Dehydrogenase Total Creatine Kinase Troponin I Total Protein Albumin Globulin Albumin/Globulin Ratio Amylase Lipase Urine Color Yellow Urine Appearance Clear Urine pH 6.0 Ur Specific [place] 1.010 Urine Protein Negative Urine Glucose (UA) Negative Urine Ketones Negative Urine Blood Trace-lysed H Urine Nitrate Negative Urine Bilirubin Negative Urine Urobilinogen 0.2 Ur Leukocyte Esterase Negative Urine RBC 0 - 2 Urine WBC 0 - 2 Ur Epithelial Cells 0 - 2 Urine Bacteria None Assessment & Plan - Assessment and Plan (Free Text) Assessment: 58yo M with extensive PMH presenting with chronic abdominal pain and possible anorectal mass on MRE. Plan: - for flex sigmoidoscopy tomorrow, as per GI - f/u report for visualization of mass and/or polyps - further surgical recommendations to follow further recommendations as per Dr. Handy
--- NOTE | 2018-05-05 12:59 | CP.PCM.PCO ---
Physician Communication Note - Physician Communication Note Physician Communication Note: flex sigmoid in am 4/15
--- NOTE | 2018-05-05 18:45 | RAD ---
Date of service: 05/05/2018 HISTORY: abd mass COMPARISON: 03/07/2018 FINDINGS: LUNGS: No active pulmonary disease. PLEURA: No significant pleural effusion identified, no pneumothorax apparent. CARDIOVASCULAR: No atherosclerotic calcification present No radiographic findings to suggest acute or significant cardiovascular disease. OSSEOUS STRUCTURES: No significant abnormalities. VISUALIZED UPPER ABDOMEN: Normal. OTHER FINDINGS: None. IMPRESSION: No active disease. No significant interval change compared to the prior examination(s).
--- NOTE | 2018-05-06 01:58 | HP ---
DATE OF EXAM: 05/05/2018 CHIEF COMPLAINT: The patient is a 58-year-old male, came into the hospital because he has been very anxious about a report of a magnetic resonance venography that he was told that he has an anorectal mass. The patient is very anxious, cannot stay home, he drank like 14 beers and came to the emergency room for evaluation. HISTORY OF PRESENT ILLNESS: This is a 58-year-old male who came in because of abnormal MRV report and concern about rectal mass. He does have some left-sided abdominal pain that has been evaluated in the past multiple times with multiple CT abdomens. He has been seen by GI consultations in the past by Dr. Murray as well as Dr. Verdugo. The patient has also had multiple colonoscopies, more than four since being evaluated with no evidence of malignancy. The patient was also seen by urologist as an outpatient, Dr. De Paz and Dr. Chong for his prostate and had multiple blood works. Currently, he is very anxious, cannot sleep, very worried about the findings and he has drunk 14 beers, binge drinking to make him feel better. There is no nausea or vomiting, no abdominal pain at this time as before, but no other complaints, no fever, nothing, and no dysuria. PAST MEDICAL HISTORY: As above. He does have some anxiety problem. He has chronic back pain. He does also have dizziness. He had multiple colonoscopies EGD's and the recent one shows jejunal ulcers and after that a VRE was ordered by Dr. Verdugo, which is supposed to be for evaluating the small bowel for inflammatory bowel disease specifically . Hypercholesterolemia, coronary artery disease with multiple stents, acid reflux symptoms. MEDICATIONS AT HOME: He takes Lipitor 40 mg once a day, Percocet once a day p.r.n., Prevacid 30 mg once a day, Pepcid 20 mg p.o. daily, vitamin B12 once a day, Plavix 75 mg once a day, vitamin D and Viazem, Valium 5 mg p.o. daily p.r.n. ALLERGIES: ALLERGIC TO FLAGYL, LEVAQUIN, AND CIPROFLOXACIN. REVIEW OF SYSTEMS: As in the present illness. PHYSICAL EXAMINATION: VITAL SIGNS: Temperature 98.2, heart rate 79, blood pressure 117/64, respirations 18, saturating 95% on room air. HEAD AND NECK: Normal. No JVD. No thyromegaly. CHEST: Clear bilaterally. CARDIAC: First sound and second sound normal. No murmur, rub or gallop. ABDOMEN: Soft. There is minimal tenderness in the left side of his abdomen, otherwise negative. RECTAL: Done by the GI fellow and was negative. NEUROLOGICAL: The patient moves all extremities. He is alert, awake, and oriented. He seems calm on evaluation after Ativan. LABORATORY DATA: White count 8, hemoglobin 13.9, hematocrit 40.4, platelets 281. His PT and PTT were normal. Chemistry; sodium 138, potassium 3.6, chloride 101, bicarb 24, BUN 14, creatinine 0.7. Liver function test is normal. Troponin is negative. His amylase and lipase are normal. The patient also had a urine test which is perfectly normal. The patient also had a chest x-ray done, which shows no active pulmonary disease. The patient also had an EKG which was normal sinus rhythm, normal EKG. IMPRESSION AND PLAN: 1. This is a 58-year-old male, came in with severe anxiety about the radiology report about presence of a mass in the anorectal region. The patient discussed with Dr. Verdugo about the findings, and the multiple endoscopies and colonoscopies he had with negative findings except the jejunostomy ulcers. The plan is to admit him, keep him on clear liquid diet and n.p.o. after midnight for possible colonoscopy. We will resume all his medications, hold the Plavix for now and continue Ativan. 2. Alcohol use disorder, binge drinking 14 beers in one day is very high. The patient never had any alcohol withdrawal according to him and he never had a seizure. the Ativan three times a day p.r.n., seems doing well with that and we will continue that for now and we will follow up on it. 3. Coronary artery disease, hypercholesterolemia, history of acid reflux and jejunal ulcers. Continue Protonix, Pepcid, Lipitor and follow up clinically. 4. Gastroenterology consult has been contacted and Surgical consult has been done. I discussed with the fellow for Gastroenterology on the patient's case and discussed in detail. Harrison Mccall MD [facility] # [id number]
[2018-05-06] MEDS: Acetaminophen 160 mg/5 ml UD PO PRN (02:00)
[2018-05-06] MEDS ORDERED: NuLYTELY (NACL/NAHCO3/KCL/PEG) 4L PO ONE (06:00)
[2018-05-06 08:18] LABS: BASO # 0.02 K/mm3 (0.0-2.0); BASO % 0.3 % (0.0-3.0); EOS # 0.3 (0.0-0.7); EOS % 4.6 % (1.5-5.0); HEMOGLOBIN 12.6 g/dL (14.0-18.0); LYMPH # 2.1 (1.2-3.4); LYMPH % 29.3 % (22.0-35.0); MEAN CELL VOLUME 96.2 fl (80.0-105.0); MEAN CORPUSCULAR HEMOGLOBIN 31.7 pg (25.0-35.0); MEAN PLATELET VOLUME 9.1 fl (7.0-11.0); MONO # 0.6 (0.1-0.6); MONO % 8.4 % (1.0-6.0); RBC 3.97 10^6/uL (3.5-6.1); RED CELL DISTRIBUTION WIDTH 13.8 % (11.5-14.5); WHITE BLOOD COUNT 7.1 10^3/uL (4.5-11.0)
[2018-05-06 08:31] LABS: ALB/GLOB RATIO 1.3 (1.1-1.8); ALBUMIN 3.7 g/dL (3.0-4.8); ALT/SGPT 15 U/L (7-56); AST/SGOT 28 U/L (17-59); BLOOD UREA NITROGEN 10 mg/dL (7-21); CALCIUM 8.7 mg/dL (8.4-10.5); GFR NON-AFRICAN AMERICAN > 60
--- NOTE | 2018-05-06 10:49 | CP.PCM.PN ---
Subjective - Date & Time of Evaluation Date of Evaluation: 05/06/18 Time of Evaluation: 06:20 - Subjective Subjective: Surgery progress note for Dr. Handy Patient seen and examined this am at bedside. Patient has no complaints at this time. Overnight he had one Bm with blood. Patient otherwise denies CABRERA, CP, SOB, abdominal pain, n/v, f/c. Objective - Vital Signs/Intake and Output Vital Signs (last 24 hours): Temp Pulse Resp BP Pulse Ox 97.5 F L 74 20 109/55 L 95 05/06/18 07:59 05/06/18 07:59 05/06/18 07:59 05/06/18 07:59 05/06/18 07:59 Intake and Output: 05/06/18 05/06/18 06:59 18:59 Intake Total 0 Balance 0 - Medications Medications: Current Medications Acetaminophen (Tylenol 160mg/5ml Oral Soln) 320 mg PO Q4 PRN PRN Reason: Pain, Mild (1-3) Last Admin: 05/06/18 02:00 Dose: 320 mg Atorvastatin Calcium (Lipitor) 40 mg PO DIN [facility] Last Admin: 05/05/18 18:16 Dose: 40 mg Famotidine (Pepcid) 20 mg PO DAILY [facility] Last Admin: 05/05/18 10:43 Dose: 20 mg Lorazepam (Ativan) 0.5 mg PO TID [facility]; Protocol Last Admin: 05/05/18 18:23 Dose: 0.5 mg Pantoprazole Sodium (Protonix Inj) 40 mg IVP Q12 [facility] Last Admin: 05/05/18 22:04 Dose: Not Given - Labs Labs: 05/06/18 08:00 05/06/18 08:00 PT 10.6 SECONDS (9.4-12.5) 05/05/18 01:25 INR 0.95 05/05/18 01:25 APTT 29.5 Seconds (26.9-38.3) 05/05/18 01:25 - Constitutional Appears: Well, Non-toxic, No Acute Distress - Head Exam Head Exam: ATRAUMATIC - Eye Exam Eye Exam: EOMI - ENT Exam ENT Exam: Mucous Membranes Moist - Respiratory Exam Respiratory Exam: NORMAL BREATHING PATTERN - Cardiovascular Exam Cardiovascular Exam: REGULAR RHYTHM - GI/Abdominal Exam GI & Abdominal Exam: Soft. absent: Guarding, Tenderness - Extremities Exam Extremities Exam: absent: Calf Tenderness - Neurological Exam Neurological Exam: Alert, Awake, Oriented x3 - Psychiatric Exam Psychiatric exam: Normal Affect, Normal Mood - Skin Skin Exam: Dry, Intact, Normal Color, Warm Assessment and Plan - Assessment and Plan (Free Text) Assessment: 58yo M with extensive PMH presenting with chronic abdominal pain and possible anorectal mass on MRE. Plan: - for flex sigmoidoscopy today, as per GI - f/u report for visualization of mass and/or polyps - further surgical recommendations to follow further recommendations as per Dr. Ole Lane, PGY 1
[2018-05-06 14:15] VITALS: RESP 20
[2018-05-07] MEDS: Acetaminophen 160 mg/5 ml UD PO PRN (01:49)
[2018-05-07 07:06] LABS: BASO # 0.02 K/mm3 (0.0-2.0); BASO % 0.3 % (0.0-3.0); EOS # 0.3 (0.0-0.7); EOS % 3.8 % (1.5-5.0); HEMOGLOBIN 13.4 g/dL (14.0-18.0); LYMPH # 1.7 (1.2-3.4); LYMPH % 24.4 % (22.0-35.0); MEAN CELL VOLUME 97.4 fl (80.0-105.0); MEAN CORPUSCULAR HEMOGLOBIN 31.4 pg (25.0-35.0); MEAN CORPUSCULAR HGB CONC 32.2 g/dl (31.0-37.0); MEAN PLATELET VOLUME 9.7 fl (7.0-11.0); MONO # 0.5 (0.1-0.6); MONO % 7.6 % (1.0-6.0); RBC 4.27 10^6/uL (3.5-6.1); RED CELL DISTRIBUTION WIDTH 13.7 % (11.5-14.5); WHITE BLOOD COUNT 7.1 10^3/uL (4.5-11.0)
[2018-05-07 07:21] LABS: ALB/GLOB RATIO 1.3 (1.1-1.8); ALBUMIN 3.9 g/dL (3.0-4.8); ALT/SGPT 17 U/L (7-56); AST/SGOT 39 U/L (17-59); BLOOD UREA NITROGEN 13 mg/dL (7-21); CALCIUM 9.1 mg/dL (8.4-10.5); GFR NON-AFRICAN AMERICAN > 60
--- NOTE | 2018-05-07 08:08 | CP.PCM.PN ---
Subjective - Date & Time of Evaluation Date of Evaluation: 05/07/18 Time of Evaluation: 07:10 - Subjective Subjective: General Surgery progress note for Dr. Handy Patient seen and examined this am at bedside. He endorses abdominal pain and states he is "unable to walk". He otherwise denies current CABRERA, CP, SOB, n/v, f/c and extremity pain/weakness. Objective - Vital Signs/Intake and Output Vital Signs (last 24 hours): Temp Pulse Resp BP Pulse Ox 98 F 60 20 134/77 3 L 05/06/18 14:39 05/07/18 05:29 05/06/18 14:39 05/06/18 14:39 05/06/18 14:39 Intake and Output: 05/07/18 05/07/18 06:59 18:59 Intake Total 1740 Balance 1740 - Medications Medications: Current Medications Acetaminophen (Tylenol 160mg/5ml Oral Soln) 320 mg PO Q4 PRN PRN Reason: Pain, Mild (1-3) Last Admin: 05/07/18 01:49 Dose: 320 mg Atorvastatin Calcium (Lipitor) 40 mg PO DIN [facility] Last Admin: 05/06/18 18:49 Dose: 40 mg Famotidine (Pepcid) 20 mg PO DAILY [facility] Last Admin: 05/06/18 11:03 Dose: Not Given Lorazepam (Ativan) 0.5 mg PO TID [facility]; Protocol Last Admin: 05/06/18 18:49 Dose: 0.5 mg Pantoprazole Sodium (Protonix Inj) 40 mg IVP Q12 [facility] Last Admin: 05/06/18 21:25 Dose: Not Given - Labs Labs: 05/07/18 05:30 05/07/18 05:30 PT 10.6 SECONDS (9.4-12.5) 05/05/18 01:25 INR 0.95 05/05/18 01:25 APTT 29.5 Seconds (26.9-38.3) 05/05/18 01:25 - Constitutional Appears: Well, Non-toxic, No Acute Distress - Head Exam Head Exam: ATRAUMATIC, NORMOCEPHALIC - Eye Exam Eye Exam: EOMI - ENT Exam ENT Exam: Mucous Membranes Moist - Respiratory Exam Respiratory Exam: NORMAL BREATHING PATTERN - Cardiovascular Exam Cardiovascular Exam: REGULAR RHYTHM - GI/Abdominal Exam GI & Abdominal Exam: Soft. absent: Guarding, Tenderness, Rebound - Extremities Exam Extremities Exam: absent: Calf Tenderness, Pedal Edema, Tenderness - Neurological Exam Neurological Exam: Alert, Awake, Oriented x3 - Psychiatric Exam Psychiatric exam: Normal Affect, Normal Mood - Skin Skin Exam: Dry, Intact, Normal Color, Warm Assessment and Plan - Assessment and Plan (Free Text) Assessment: 58yo M with extensive PMH presenting with chronic abdominal pain and possible anorectal mass on MRE, s/p flex sig POD 1 with no findings of mass Plan: - per flex sig report diverticular disease may be the source of the patient's abdominal pain - no mass seen on flex sig - should patient fail conservative therapy for his slight rectal prolapse surgery may be discussed as an option in the future as an outpatient - no acute surgical intervention at this time - further recs per Dr. Ole Lane, PGY 1
[2018-05-07] MEDS ORDERED: Potassium Chloride 20 mEq ER Tab PO ONE (10:00)
--- NOTE | 2018-05-07 11:41 | CP.PCM.PN ---
<Archie Rivero - Last Filed: 05/07/18 11:37> Subjective - Date & Time of Evaluation Date of Evaluation: 05/07/18 Time of Evaluation: 11:37 - Subjective Subjective: Denies rectal bleed. Denies significant abdominal pain. Discussed results of colonoscopy with patient. Objective - Vital Signs/Intake and Output Vital Signs (last 24 hours): Temp Pulse Resp BP Pulse Ox 98 F 60 20 134/77 3 L 05/06/18 14:39 05/07/18 05:29 05/06/18 14:39 05/06/18 14:39 05/06/18 14:39 Intake and Output: 05/07/18 05/07/18 06:59 18:59 Intake Total 1740 Balance 1740 - Medications Medications: Current Medications Acetaminophen (Tylenol 160mg/5ml Oral Soln) 320 mg PO Q4 PRN PRN Reason: Pain, Mild (1-3) Last Admin: 05/07/18 01:49 Dose: 320 mg Atorvastatin Calcium (Lipitor) 40 mg PO DIN [facility] Last Admin: 05/06/18 18:49 Dose: 40 mg Famotidine (Pepcid) 20 mg PO DAILY [facility] Last Admin: 05/07/18 10:59 Dose: Not Given Lorazepam (Ativan) 0.5 mg PO TID [facility]; Protocol Last Admin: 05/07/18 10:59 Dose: Not Given Pantoprazole Sodium (Protonix Inj) 40 mg IVP Q12 [facility] Last Admin: 05/07/18 11:00 Dose: Not Given - Labs Labs: 05/07/18 05:30 05/07/18 05:30 PT 10.6 SECONDS (9.4-12.5) 05/05/18 01:25 INR 0.95 05/05/18 01:25 APTT 29.5 Seconds (26.9-38.3) 05/05/18 01:25 - Constitutional Appears: Non-toxic, No Acute Distress - Head Exam Head Exam: ATRAUMATIC, NORMAL INSPECTION - Eye Exam Eye Exam: EOMI, Normal appearance - Respiratory Exam Respiratory Exam: Clear to Ausculation Bilateral, NORMAL BREATHING PATTERN - Cardiovascular Exam Cardiovascular Exam: REGULAR RHYTHM, +S1, +S2 - GI/Abdominal Exam GI & Abdominal Exam: Soft, Normal Bowel Sounds. absent: Tenderness - Neurological Exam Neurological Exam: Alert, Awake, Oriented x3 - Psychiatric Exam Psychiatric exam: Normal Affect, Normal Mood Assessment and Plan - Assessment and Plan (Free Text) Assessment: 58 year old male with a PMH of CAD s/p multiple stents, CVA w/ no re sidual deficits, multiple non-bleeding duodenal and jejunal ulcers, esophagitis/gastritis, hiatal hernia, diverticulosis, internal hemorrhoids, hyperlipidemia, orthostatic hypotension, depression and anxiety who is admitted for imaging findings of recto-sigmoid inflammation and an anorectal mass. GI consulted for colonic mass. abdominal pain anorectal tumor/prolapse multiple small bowel ulcers Plan: - Colonoscopy 05/06 - Anorectal benign fatty tumor/prolapse with small ulceration. No evidence of ischemic changes, Colitis. - Recommend avoid constipation (stool softeners, bulking agent with plenty of water) avoiding sitting on the toilet > 5 mins. Patient understood - If symptoms continue from rectal area as an outpatient, may consider surgery to correct lipoma/prolapse if conservative management fails. - PPI daily - Labs and prior charts were reviewed Case was reviewed and discussed with attending, Dr. Verdugo, see attestation <Judith Verdugo V - Last Filed: 05/07/18 21:58> Objective - Vital Signs/Intake and Output Vital Signs (last 24 hours): Temp Pulse Resp BP Pulse Ox 97.8 F 53 L 20 107/60 94 L 05/07/18 06:00 05/07/18 14:00 05/07/18 06:00 05/07/18 06:00 05/07/18 06:00 - Labs Labs: 05/07/18 05:30 05/07/18 05:30 PT 10.6 SECONDS (9.4-12.5) 05/05/18 01:25 INR 0.95 05/05/18 01:25 APTT 29.5 Seconds (26.9-38.3) 05/05/18 01:25 Attending/Attestation - Attestation I have personally seen and examined this patient.: Yes I have fully participated in the care of the patient.: Yes I have reviewed all pertinent clinical information, including history, physical exam and plan: Yes Notes (Text): This is an addendum to the GI progress report dictated by GI fellow. The findings were reviewed imaging studies reviewed the flexible sigmoidoscopy did not reveal any anorectal mass lesion it appears to be having some prolapsing hemorrhoids with partial rectal mucosal fold Partial rectal mucosal prolapse with IH was seen. And it showed pillow sign. There were small erosions on the prolapsing mucosal surface area. There were few scattered diverticula seen. Otherwise unremarkable multiple biopsies of the rectum and sigmoid were taken. Postprocedure findings were discussed with Dr. Mccall and also the surgical team. The previous Doppler studies were reviewed. I did speak with Dr. Greg Mcgregor,interventional The plan is to consider MR angiogram if he remains symptomatic. Plan is also to consider capsule endoscopy. Patient did have multiple jejunal ulcers . Patient was also taking NSAIDs the differential diagnosis is enteritis 05/07/18 21:48
[2018-05-07 12:24] VITALS: BP 107/60; TEMP 97.8; O2SAT 94
[2018-05-07 14:11] VITALS: PULSE 53
[2018-05-08] MEDS ORDERED: Pantoprazole 40 mg EC Tab PO SCH (06:00)
--- NOTE | 2018-05-09 02:53 | DS ---
HOSPITAL COURSE: Patient was seen and evaluated. He wants to get more tests done. I explained the patient that everything came back normal, planning to get MRI of his RV as outpatient. He has no complaint. No chest pain, no shortness of breath, hemodynamically stable. PHYSICAL EXAMINATION: VITAL SIGNS: Temperature 97.8, heart rate 70, blood pressure 107/60, respirations 20, and saturation 94%. HEAD AND NECK: Normal. No JVD. No thyromegaly. CHEST: Clear bilaterally. CARDIAC: First sound and second sound normal. No murmur, rub, or gallop. ABDOMEN: Soft and nontender. EXTREMITIES: No edema. NEUROLOGIC: Normal. LABORATORY DATA: Noted for negative except for prolapsed mucosa of the rectum. The patient also had consultations by GI consult, Dr. Verdugo; Surgical consult, Dr. Broderick Storey, Oncology with oncologic surgeon. at this moment, we will discharge home to follow up MRI as outpatient.. DISCHARGE DIAGNOSES: 1. Rectal prolapse. 2. Severe anxiety secondary to abnormal report as outpatient, MRE. 3. Chronic anxiety. He is on Ativan, now he is doing better. 4. Coronary artery disease. 5. Hypercholesterolemia. 6. Hypertension. DISPOSITION: We will discharge the patient home to be followed up in the office. DISCHARGE MEDICATIONS: Lipitor 40 mg, Percocet p.r.n. for pain, Prevacid 30 mg, famotidine 20 mg, B12 once, Plavix 75 mg, vitamin D once a week and Valium 5 mg p.r.n. Harrison Mccall MD
--- NOTE | 2018-05-09 09:21 | PN ---
DATE: 05/06/2018 SUBJECTIVE: Anuel Whitt was seen on 05/06/2018. He is going for flexible sigmoidoscopy. PHYSICAL EXAMINATION VITAL SIGNS: Temperature 98, heart rate 55, blood pressure 114/56. HEAD AND NECK: Normal. No JVD. No thyromegaly. CHEST: Clear bilateral. CARDIAC: First sound and second sound normal. No murmur, rub or gallop. ABDOMEN: Soft, nontender. EXTREMITIES: No edema. NEUROLOGICAL: Normal. LABORATORY DATA: Laboratory status post flexible sigmoidoscopy. The patient had a flexible sigmoidoscopy, which shows a negative left flank, which shows mild rectal prolapse. We closed the prolapse, which could explain false positive MRE findings. IMPRESSION AND PLAN: 1. . Plan is to just discharge home. 2. Hypertension. 3. Coronary artery disease. 4. Hypercholesteremia. 5. Chronic anxiety. 6. History of alcohol abuse. 7. History of recent binge drinking. PLAN: Continue current therapy. Followup clinically. The patient should be discharged home. MRE of the celiac arteries, inferior mesenteric and superior mesenteric arteries has been recommended. We will discuss with GI about that. Continue current therapy. Harrison Mccall MD
== END 2018-05-07 14:40 | disposition home or self-care (01) ==
LOC: ED 01:07 → ERH 01:19 → 3RNO 02:50
PROVIDERS: ADMIT Internal Medicine; ATTEND Internal Medicine
DX: K62.3 Rectal prolapse (principal); K29.70 Gastritis, unspecified, without bleeding; K44.9 Diaphragmatic hernia without obstruction or gangrene; K57.90 Diverticulosis of intestine, part unspecified, without perforation or abscess without bleeding; K63.3 Ulcer of intestine; F06.4 Anxiety disorder due to known physiological condition; E78.00 Pure hypercholesterolemia, unspecified; E78.5 Hyperlipidemia, unspecified; F10.10 Alcohol abuse, uncomplicated; F32.89 Other specified depressive episodes; G89.29 Other chronic pain; I12.9 Hypertensive chronic kidney disease with stage 1 through stage 4 chronic kidney disease, or unspecified chronic kidney disease; N18.9 Chronic kidney disease, unspecified; N28.1 Cyst of kidney, acquired; N40.0 Benign prostatic hyperplasia without lower urinary tract symptoms; K21.0 Gastro-esophageal reflux disease with esophagitis; J44.9 Chronic obstructive pulmonary disease, unspecified; I95.1 Orthostatic hypotension; I25.10 Atherosclerotic heart disease of native coronary artery without angina pectoris; Z79.02 Long term (current) use of antithrombotics/antiplatelets; Z79.899 Other long term (current) drug therapy; Z80.0 Family history of malignant neoplasm of digestive organs; Z80.8 Family history of malignant neoplasm of other organs or systems; Z86.73 Personal history of transient ischemic attack (TIA), and cerebral infarction without residual deficits; Z87.11 Personal history of peptic ulcer disease; F17.210 Nicotine dependence, cigarettes, uncomplicated; Z95.5 Presence of coronary angioplasty implant and graft; K64.1 Second degree hemorrhoids
CPT/HCPCS: 36415; 45378; 71045; 80053; 81001; 82150; 82550; 82948; 83615; 83690; 84484; 85025; 85610; 85730; 88305; 93005; 99284; C9113; G0378; J3411; J7030; J7040

== ENCOUNTER 2018-05-11 15:00 | Observation (INO) | payer MEDICARE, OTHER ==
[2018-05-11 15:10] VITALS: BMI 23.5
--- NOTE | 2018-05-11 16:00 | ED PDOC ---
Arrival/HPI - General Chief Complaint: Chest Pain Time Seen by Provider: 05/11/18 15:11 Historian: Patient - History of Present Illness Narrative History of Present Illness (Text): 05/11/18 15:54 58 year old male, whose past medical history includes COPD, hypertension, hyperlipidemia, CAD s/p 4 cardiac stents, gastric ulcer, renal cyst, BPH, and alcohol abuse, who presents to the emergency department with intermittent left sided chest pain since last night. Patient states the pain radiates to his left thoracic back, he felt dizzy and short of breath a little earlier today, and he felt that his left arm was cold, but not numb or weak. His arm is no longer cold and his chest pain is not pleuretic or exertional. Of note, patient smokes 10 cigarettes a day, which is less than before, he states he is cutting down. Patient denies fevers, chills, headache, cough, abdominal pain, nausea, vomiting, diarrhea, back pain, neck pain, or any other complaint. Time/Duration: 24 hours Symptom Onset: Gradual Symptom Course: Unchanged Activities at Onset: Light Context: Home Past Medical History - Provider Review Nursing Documentation Reviewed: Yes - Past History Past History: No Previous - Infectious Disease Hx of Infectious Diseases: None - Tetanus Immunization Tetanus Immunization: Up to Date - Cardiac Hx Hypertension: Yes - HEENT Hx HEENT Disorder: No - Integumentary Hx Dermatological Disorder: No - Musculoskeletal/Rheumatological Hx Fractures: Yes ((rib/sternum)) - Gastrointestinal Hx Diverticulitis: Yes Hx Gastrointestinal Ulcer: Yes Hx Pancreatitis: (pt denies) Other/Comment: duoduenal ulcers - Psychiatric Hx Anxiety: Yes Hx Depression: Yes Hx Substance Use: No - Past Surgical History Past Surgical History: No Previous - Surgical History Hx Coronary Stent: Yes (x4) - Anesthesia Hx Anesthesia: No Hx Anesthesia Reactions: No Hx Malignant Hyperthermia: No - Suicidal Assessment Feels Threatened In Home Enviroment: No Family/Social History - Physician Review Nursing Documentation Reviewed: Yes Family/Social History: No Known Family HX Smoking Status: Light Smoker < 10 Cigarettes Daily Hx Alcohol Use: Yes Hx Substance Use: No Hx Substance Use Treatment: No Allergies/Home Meds Allergies/Adverse Reactions: Allergies ciprofloxacin Allergy (Severe, Verified 05/05/18 01:14) NUMBNESS levofloxacin [From Levaquin] Allergy (Verified 05/05/18 01:14) NUMBNESS metronidazole [From Flagyl] Allergy (Verified 05/05/18 01:14) SWELLING Home Medications: Home Meds Medication Instructions Recorded Confirmed Famotidine [Pepcid] 20 mg PO DAILY 03/07/18 05/05/18 Lansoprazole [Prevacid] 30 mg PO DAILY 03/07/18 05/05/18 diaZEpam [Valium] 5 mg PO PRN PRN 03/21/18 05/05/18 Oxycodone HCl/Acetaminophen 1 tab PO PRN PRN 03/25/18 05/05/18 [Oxycodone-Acetaminophen 5-325] Review of Systems - Physician Review All systems were reviewed & negative as marked: Yes - Review of Systems Constitutional: absent: Fevers Respiratory: SOB. absent: Cough Cardiovascular: Chest Pain Gastrointestinal: absent: Abdominal Pain, Diarrhea, Nausea, Vomiting Musculoskeletal: absent: Back Pain, Neck Pain Neurological: Dizziness. absent: Headache Physical Exam Vital Signs Reviewed: Yes Vital Signs Temp Pulse Resp BP Pulse Ox 05/11/18 15:04 97.5 F L 88 19 118/69 99 Temperature: Afebrile Blood Pressure: Normal Pulse: Regular Respiratory Rate: Normal Appearance: Positive for: Well-Appearing, Non-Toxic, Comfortable Pain Distress: None Mental Status: Positive for: Alert and Oriented X 3 - Systems Exam Head: Present: Atraumatic, Normocephalic Pupils: Present: PERRL Extroacular Muscles: Present: EOMI Conjunctiva: Present: Normal Mouth: Present: Moist Mucous Membranes Neck: Present: Normal Range of Motion Respiratory/Chest: Present: Clear to Auscultation, Good Air Exchange. No: Respiratory Distress, Accessory Muscle Use Cardiovascular: Present: Regular Rate and Rhythm, Normal S1, S2. No: Murmurs Abdomen: No: Tenderness, Distention, Peritoneal Signs Back: Present: Normal Inspection Upper Extremity: Present: Normal Inspection. No: Cyanosis, Edema Lower Extremity: Present: Normal Inspection. No: Edema Neurological: Present: GCS=15, CN II-XII Intact, Speech Normal Skin: Present: Warm, Dry, Normal Color. No: Rashes Psychiatric: Present: Alert, Oriented x 3, Normal Insight, Normal Concentration Medical Decision Making ED Course and Treatment: 05/11/18 16:00 Impression: 58 year old male who presents to the emergency department complaining of left sided chest pain. Plan: -- Labs -- EKG -- Chest X-ray -- Aspirin -- Nitrostat SL tab -- Urinalysis -- Reassess and disposition Prior Visits: Notes and results from previous visits were reviewed. Progress Notes: EKG performed at 15:10 reviewed by me, show: NSR at 79 bpm with normal axis, normal intervals, and no ST elevations. SL nitro and 324mg ASA given. CXR done, no acute disease noted. Labs done, troponin negative. Case discussed with Dr. Mccall who would like patient admitted for observation, for chest pain given significant cardiac history. Consult placed to Dr. Vazquez, patient's data warehousing manager. - Lab Interpretations I have reviewed the lab results: Yes - RAD Interpretation Inorganic Chemistry Teacher: Radiologist - EKG Interpretation Interpreted by ED Physician: Yes Type: 12 lead EKG - Scribe Statement The provider has reviewed the documentation as recorded by the Scribe Zita Resendez Provider Scribe Attestation: All medical record entries made by the Scribe were at my direction and personally dictated by me. I have reviewed the chart and agree that the record accurately reflects my personal performance of the history, physical exam, medical decision making, and the department course for this patient. I have also personally directed, reviewed, and agree with the discharge instructions and disposition. Disposition/Present on Arrival - Present on Arrival Any Indicators Present on Arrival: No History of DVT/PE: No History of Uncontrolled Diabetes: No Urinary Catheter: No History of Decub. Ulcer: No History Surgical Site Infection Following: None - Disposition Have Diagnosis and Disposition been Completed?: Yes Diagnosis: Chest pain Disposition: HOSPITALIZED Disposition Time: 18:00 Condition: STABLE Discharge Instructions (ExitCare): Chest Pain (ED) Referrals: Harrison Mccall MD [Primary Care Provider] - Follow up with primary Forms: [employer] (Urdu)
[2018-05-11 16:14] LABS: BASO # 0.02 K/mm3 (0.0-2.0); BASO % 0.2 % (0.0-3.0); EOS # 0.3 (0.0-0.7); EOS % 3.5 % (1.5-5.0); HEMOGLOBIN 13.7 g/dL (14.0-18.0); LYMPH # 1.8 (1.2-3.4); LYMPH % 19.3 % (22.0-35.0); MEAN CORPUSCULAR HEMOGLOBIN 32.4 pg (25.0-35.0); MEAN CORPUSCULAR HGB CONC 33.7 g/dl (31.0-37.0); MEAN PLATELET VOLUME 9.8 fl (7.0-11.0); MONO # 0.6 (0.1-0.6); MONO % 6.6 % (1.0-6.0); RBC 4.23 10^6/uL (3.5-6.1); RED CELL DISTRIBUTION WIDTH 13.7 % (11.5-14.5); WHITE BLOOD COUNT 9.2 10^3/uL (4.5-11.0)
[2018-05-11 16:15] LABS: URINE BILIRUBIN NEGATIVE (NEGATIVE); URINE BLOOD NEGATIVE (NEGATIVE); URINE GLUCOSE (UA) NEGATIVE (NEGATIVE); URINE LEUKOCYTE ESTERASE NEGATIVE Leu/uL (NEGATIVE); URINE PROTEIN NEGATIVE mg/dL (<30 mg/dL); URINE UROBILINOGEN 0.2 E.U./dL (<1 E.U./dL)
[2018-05-11 16:16] LABS: URINE APPEARANCE CLEAR (CLEAR); URINE COLOR LIGHT YELLOW (YELLOW)
[2018-05-11 16:23] LABS: ALB/GLOB RATIO 1.3 (1.1-1.8); ALBUMIN 4.1 g/dL (3.0-4.8); ALT/SGPT 20 U/L (7-56); AST/SGOT 30 U/L (17-59); BLOOD UREA NITROGEN 11 mg/dL (7-21); CALCIUM 9.6 mg/dL (8.4-10.5); GFR NON-AFRICAN AMERICAN > 60
[2018-05-11 16:30] LABS: TROPONIN I < 0.01 ng/mL
[2018-05-11 17:08] VITALS: RESP 18
[2018-05-11] MEDS ORDERED: Influenza Vaccine 60 mcg/0.5 mL SYR (4YR UP) IM ONE (20:43)
[2018-05-11] MEDS ORDERED: Pneumococcal 23-Valent Vaccine IM ONE (20:43)
--- NOTE | 2018-05-11 22:00 | CARD ---
APPROVED REPORT Date of service: 05/11/2018 EKG Measurement Heart [id number] <Conclusion> Normal sinus rhythm Normal ECG
[2018-05-11 23:47] LABS: TROPONIN I < 0.01 ng/mL
[2018-05-12 00:57] VITALS: O2SAT 100
[2018-05-12] MEDS ORDERED: Pantoprazole 40 mg EC Tab PO SCH (06:00)
[2018-05-12 07:06] LABS: BASO # 0.02 K/mm3 (0.0-2.0); BASO % 0.3 % (0.0-3.0); EOS # 0.3 (0.0-0.7); EOS % 4.3 % (1.5-5.0); HEMOGLOBIN 13.5 g/dL (14.0-18.0); LYMPH # 2.4 (1.2-3.4); LYMPH % 31.2 % (22.0-35.0); MEAN CELL VOLUME 94.3 fl (80.0-105.0); MEAN CORPUSCULAR HEMOGLOBIN 32.1 pg (25.0-35.0); MEAN PLATELET VOLUME 9.7 fl (7.0-11.0); MONO # 0.7 (0.1-0.6); MONO % 9.7 % (1.0-6.0); RBC 4.21 10^6/uL (3.5-6.1); RED CELL DISTRIBUTION WIDTH 13.9 % (11.5-14.5); WHITE BLOOD COUNT 7.6 10^3/uL (4.5-11.0)
[2018-05-12 07:25] LABS: ALB/GLOB RATIO 1.3 (1.1-1.8); ALBUMIN 3.9 g/dL (3.0-4.8); ALT/SGPT 11 U/L (7-56); AST/SGOT 26 U/L (17-59); BLOOD UREA NITROGEN 13 mg/dL (7-21); CALCIUM 9.2 mg/dL (8.4-10.5); GFR NON-AFRICAN AMERICAN > 60; HDL CHOLESTEROL 45 mg/dL (29-60); LDL CHOLESTEROL 98 mg/dL (0-129)
[2018-05-12 07:26] LABS: TROPONIN I < 0.01 ng/mL
--- NOTE | 2018-05-12 09:27 | RAD ---
Date of service: 05/11/2018 HISTORY: chest pain COMPARISON: 05/05/2018 FINDINGS: LUNGS: No active pulmonary disease. PLEURA: No significant pleural effusion identified, no pneumothorax apparent. CARDIOVASCULAR: No aortic atherosclerotic calcification present. Normal cardiac size. No pulmonary vascular congestion. OSSEOUS STRUCTURES: No significant abnormalities. VISUALIZED UPPER ABDOMEN: Normal. OTHER FINDINGS: None. IMPRESSION: No active disease.
[2018-05-12 13:06] VITALS: BP 110/60; PULSE 75
--- NOTE | 2018-05-12 13:19 | CON ---
DATE: 05/12/2018 HISTORY OF PRESENT ILLNESS: This is a 58-year-old male with past medical history of COPD, hypertension, hyperlipidemia, status post cardiac stent, gastric ulcer, renal cyst, alcohol abuse, came to the emergency room with twitching of the left side and also with chest pain radiating to the back of the thorax and also felt dizzy and shortness of breath earlier. Now feels okay and called to evaluate the patient. PAST MEDICAL HISTORY: Hypertension, COPD, gastric ulcer, alcohol abuse. PHYSICAL EXAMINATION VITAL SIGNS: Blood pressure 118/69. HEENT: Normocephalic, atraumatic. NECK: Supple. NEUROLOGIC: Alert, awake, oriented x3. No aphasia. Cranial nerves II through XII were tested. Pupils reactive. EOM intact. Visual field full. No facial asymmetry. Tongue midline. MOTOR EXAMINATION: Moves all extremities equally. Tone normal. Deep tendon reflexes 1+. Both plantars downgoing. Sensory appears intact. Cerebellar gait normal. IMPRESSION: Syncope, less likely seizure and workup in progress. Continue present management. We will followup. Viraj Gee MD
--- NOTE | 2018-05-12 15:52 | HP ---
DATE OF EXAM: 05/11/2018 REASON FOR ADMISSION: The patient came in with chest pain. HISTORY OF PRESENT ILLNESS: This is a well known 58-year-old male with history of coronary artery disease, hypercholesterolemia, hypertension, history of multiple admissions with anxiety and panic episodes. The patient came in because of chest pain left side intermittently happened during the day and it, got worse and came to the ER. The patient denies short of breath. Denies fever, cough, nausea, vomiting or diarrhea. The patient also complaints of the left hand twitches and left leg twitches with each other, and also has trouble with left eye intermittently. There is no history of seizure according to him and the patient does have a history of chronic alcoholism in the past and occasionally he drinks now rarely he do binge drinking. PAST MEDICAL HISTORY: As I mentioned, coronary artery disease with multiple stents, hypertension, hypercholesterolemia, chronic back pain, disc disease, chronic rectal prolapse with rectum discomfort. The patient has acid reflux, because deficiency, anxiety, seen by . ALLERGIES: CIPROFLOXACIN, LEVAQUIN, AND FLAGYL. SOCIAL HISTORY: He lives with his , he still smokes, but not as much as before, less than a pack a day . REVIEW OF SYSTEMS: As in the present illness. He does occasionally get left side tremors, twitches, and difficulty walking. Difficulty in vision in left eye, visual problems, seen by button inspector. Also he get anxiety, panicking, otherwise negative. PHYSICAL EXAMINATION: GENERAL: The patient was seen in the emergency room on 05/11/2018. The patient does not seem to be in distress. He is more anxious. . VITAL SIGNS: Temperature 97.5, heart rate 88, blood pressure is 118/69, respirations 18, saturation 99% on room air. HEAD AND NECK: Normal. No JVD. No thyromegaly. CHEST: Clear bilateral. CARDIAC: First sound and second sound normal. ABDOMEN: Soft and nontender. EXTREMITIES: No edema. NEUROLOGICAL: Normal. LABORATORY DATA: White count 9.2, hemoglobin 13.7, hematocrit 40.6, platelets 288. Chemistry; sodium 139, potassium 4.1, chloride 106, bicarb 26, BUN 11, creatinine 0.6. Lactate dehydrogenase is low 321. Troponin is negative. EKG was done, which shows normal sinus rhythm. Normal EKG. Normal QT. The patient also had a chest x-ray. The patient had lung x-ray negative. No active disease. IMPRESSION AND PLAN: 1. This is a 58-year-old male with history of coronary artery disease, came in with left-sided chest pain. No dyspnea. We will admitted the patient with chest pain with Cardiology consults. Troponin repeat x3. Repeat lab in the morning. 2. Left sided tremors with blurred vision. Neurology consult, Dr. Gee. Resume all his medications, aspirin and Plavix and we will follow up in the morning. Harrison Mccall MD
[2018-05-12 16:00] VITALS: TEMP 98
--- NOTE | 2018-05-12 20:57 | CON ---
DATE: 05/12/2018 CONSULT SERVICE: Cardiology. REASON FOR CONSULTATION: Cardiac evaluation, chest pain, history of coronary artery disease, and history of multiple stents in the past. BRIEF CLINICAL HISTORY: A 58-year-old male with past medical history significant for alcohol abuse, tobacco abuse in the past, history of coronary artery disease, hypertension, hyperlipidemia, and history of gastric ulcer, off Plavix, who came to the emergency room with complaint of chest pain. The patient called me at 9 p.m. on Wednesday that he was having some chest pain and left hand is getting cold, should he take a nitroglycerin or go into the ER. I advised him to come to the ER, but the patient did not show until 24 hours after that and then he said he had the chest pain so he ultimately decided to come to the ER. He denies any prior episode of chest pain, dyspnea on exertion or chest pain on exertion. PAST MEDICAL HISTORY: Significant for coronary artery disease, history of stent, history of ulcer, gastric ulcer, off Plavix; history of multiple stents in LAD and RCA, last stent was on 12/30/2014; last catheterization was on 04/25/2015, when the patient had only cardiac catheterization done; history of abdominal pain, history of abdominal aortogram and bilateral lower extremity runoff. No stent was done. SOCIAL HISTORY: Significant for active tobacco abuse and active alcohol abuse. PREVIOUS CARDIAC WORKUP: As follows; the patient's most recently stress test done by Dr. Mckinnon on 10/01/2017, that shows probably negative myocardial perfusion study, fixed defect, and ejection fraction 54%. When compared for the previous study dated 10/18/1999, the previously noted partially reversible defect appears to be fixed in the current study. Prior to that, the patient had a stress test done at [facility]; because of lack of network, it was told negative, but not available at this time. Besides this, the patient had invasive cardiac workup. The patient had a stent in RPDA on 12/31/2014, history of mid LAD PTCA on 12/03/2014. Prior to that, the most recent cardiac catheterization, dated 04/25/2015, because the patient was complaining of new dyspnea on exertion and chest pain on exertion, admitted with unstable angina. Cardiac catheterization at that time revealed patent stent in LAD, patent stent in RPDA, proximal LAD, and eccentric 40% to 50% stenosis noted. FFR was done and found to be 0.97, so no stent required and was not done. The patient also complained of poor circulation and according to him a history of abdominal aortic aneurysms and abdominal aortogram was done, peripheral angiogram was done, up to the mid-thigh was done; showed no significant flow-limiting stenosis at the aorta or the bifurcation or up to the middle thigh of the lower extremity. CURRENT MEDICATIONS: The patient at home was taking Valium 5 mg daily; oxycodone 1 tablet daily; Prevacid 30 mg daily; Pepcid 20 mg daily; cyanocobalamin 500 mg daily; Plavix 75 mg daily, but stopped recently; vitamin D3 1000 mg daily; atorvastatin 40 mg daily; and aspirin 81 mg daily. ALLERGIES: ALLERGY TO CIPROFLOXACIN, LEVAQUIN, AND METRONIDAZOLE. REVIEW OF SYSTEMS: As per HPI; and negative except HPI. PHYSICAL EXAMINATION: As follows; GENERAL: Height of the patient 5 feet 10 inches, weight of the patient 164 pounds, and body mass index 24 kg/m2. VITAL SIGNS: Temperature afebrile, heart rate 60, and blood pressure 115/62. HEENT: PERRLA. Extraocular muscles intact. NECK: Supple. No carotid bruits or thyromegaly. CHEST: Clear to auscultation. HEART: S1 and S2 regular. ABDOMEN: Soft. EXTREMITIES: Clubbing and cyanosis negative. LABORATORY DATA: WBC 7.6, hemoglobin 13.5, hematocrit 39.7, and platelet count 284. Chemistry shows sodium 141, potassium 4, chloride 105, carbon dioxide 27, anion gap of 13, BUN 13, and creatinine 0.7. Troponin remains negative x3. TSH is 4.08. Total cholesterol 162, LDL 98, HDL 45, and triglycerides 97. IMPRESSION: A 58-year-old male with past medical history significant for coronary artery disease, status post percutaneous transluminal coronary angioplasty of left anterior descending artery and a straight percutaneous transluminal coronary angioplasty of right dominant posterior descending artery. Subsequently, the patient had a cardiac catheterization on 04/25/2015, when the patient admitted with unstable angina, found to be patent stent in left anterior descending artery and patent stent in right dominant posterior descending artery. Left anterior descending artery was found to be 40% to 50% stenosis. Fractional flow reserve was done, found to be 0.9 that does not mandate a stent, so no stent was done. At that time also abdominal aortogram was done because the patient was complaining of abdominal aortic aneurysm in the history as well as claudication, that shows at the middle thigh no flow limiting stenosis noted in the lower extremity circulation of the mid thigh. Who admitted yesterday with atypical chest pain, so troponin were added two more and all troponin came out to be negative, so no evidence of acute myocardial infarction. RECOMMENDATIONS: In view of the patient's lifestyle, tobacco abuse, alcohol abuse, as well as narcotics and benzodiazepine dependent, suggest a stress test to rule out any ischemia. Further recommendations depending upon the hospital course. The patient had recent echocardiography done on 01/05/2018, that revealed a normal LV function, ejection fraction within the normal limit, reviewed by Dr. Sierra, and trace mitral regurgitation reported, a trace tricuspid regurgitation was reported, RV systolic pressure 29 mmHg, and calculated ejection fraction 56%. So no further echo was ordered and it was canceled because it was less than six months, but we will continue Myoview thallium and we will compare the result from September. Further recommendations will be done after the stress test result. The patient was at one point, stopped taking Plavix. Not sure whether he was taking off and on when he gets chest pain, but since the cardiac catheterization was long done; if the patient cannot tolerate, we will continue to hold depending upon further recommendations made after the stress test, but we will suggest to continue aspirin, atorvastatin, and beta sharla. Thank you Dr. Mccall for providing us the opportunity in taking care of the patient, Anuel Whitt. Yajaira Vazquez MD
--- NOTE | 2018-05-12 21:49 | CARD ---
APPROVED REPORT Date of service: 05/12/2018 Protocol: VANNA Test Type: Sestamibi Stress Test Attending Physician: Dr. Yajaira Daley Referring Physician: Dr. Harrison Mccall Test Indications: Chest Pain Height:5 ft 10 in Weight:164lbs Medical History: 58 y/o male. Hx of chest pain,hypertension,high cholesterol, TIA, smokes 1/2 pack a day, 5 stents.. Target HR: 160 bpm Resting ECG: RSR. Resting Heart Rate: 75 bpm Resting Blood Pressure: 110/60mmHg Submaximum (85%): 136 bpm POST EXERCISE Reason for Termination: Fatigue Target HR: No Max HR: 151 bpm 95% of Maximum Predicted HR: 160 bpm Exercise duration: 12:24 min:sec, 5 Stage Exercise capacity: 14.1METs Max Blood Pressure: 176/60mmHg Blood Pressure response to exercise: normal resting BP - appropriate response Heart Rate response to exercise: appropriate Chest Pain: No, none Angina index: 0 Arrhythmia: No, none ST Change: No, none Deviation: 0 mm TEST SUMMARY [id number]/.0. [id number]:[id number]/.0. PRETESTHYPERV.31:[id number]/60.0. EXERCISESTAGE 103:[id number]/50.0. EXERCISESTAGE 203:[id number]/50.0. EXERCISESTAGE 303:[id number]/60.0. EXERCISESTAGE 403:[id number]/60.1. EXERCISESTAGE 500:245.620.751.1845/.1. [id number]:430.00.01.0.176/60.0. INTERPRETATION Stress EKG Conclusion: MYOVIEW NUCLEAR STRESS TEST STOPPED AFTER 12 MINUTES AND 24 SECONDS OF VANNA PROTOCOL DUE TO FATIGUE. PATIENT ACHIEVED 90% OF PREDICTED HEART RATE. NO CHEST PAIN. NO ST-T CHANGES. NUCLEAR SCAN REPORT PENDING. Signed by Yajaira Daley Electronically Approved: 05/12/2018 12:12:43 EXAM: Myocardial Perfusion REST/STRESS Stress Test Type: Exercise Treadmill Imaging Protocol The imaging protocol used to acquire images was Rest Tc-99m/stress Tc-99m 1 day Rest Spect myocardial perfusion imaging was performed in supine position 50 minutes following the injection of 10.3 mCi of Tc-99 Myoview. At peak stress, the patient was injected intravenously with 30.2mCi of Tc-99 tetrofosmin after an infusion time of 0 minutes and 10.2 seconds. Gated Stress Spect was performed 75 minutes after intravenous Tc-99 Myoview injection. The images were gated to evaluate regional wall motion and calculate ventricular ejection fraction.Images were reconstructed using backfilter projection method in short horizontal and verticle long axis. Spect slices were generated. LV Perfusion The quality of the study is good. The left ventricle is mildly enlarged in size. The right ventricle is unremarkable. The lung uptake is normal. The distribution of tracer reveals moderately and diffusely decreased perfusion in the apical and inferior morales on the stress study. The remainder of the LV myocardium is unremarkable. The rest myocardial perfusion study shows no significant change. Wall Motion Wall motion study shows good contractility of the left ventricle. LVEF = 55%. Conclusion 1. Probably normal SPECT myocardial perfusion study. 2. Fixed, apical and inferior defects are probably due to diaphragmatic attenuation. 3. Normal gated wall motion and thicknening of the left ventricle. 4. In comparison with the last study of 10/01/2017, there is no significant change.
--- NOTE | 2018-05-14 01:47 | DS ---
HOSPITAL COURSE: The patient came in with chest pain, also he complain of left-sided generalized weakness. The patient apparently has multiple admissions with different complaints, more of anxiety and requesting to help the patient to move on; however, he comes with chest pain again and also left-sided tremors, repeated movements. The patient was evaluated for chest pain, had exercise stress test, which 12 minutes plus five seconds exercise and did good and his nuclear exercise stress test came back normal. The patient was discharged home to be followed up by Cardiology and Neurology, Dr. Viraj Gee who saw the patient in the hospital and the patient was otherwise stable. He is hemodynamically stable. PHYSICAL EXAMINATION AT DISCHARGE: VITAL SIGNS: Temperature 98, heart rate 67, blood pressure is 110/60, respirations 18, and saturating 100% on room air. HEAD AND NECK: Normal. No JVD. No thyromegaly. CHEST: Clear bilaterally. CARDIAC: First sound and second sound normal. No murmur, rub, or gallop. ABDOMEN: Soft and nontender. EXTREMITIES: No edema. NEUROLOGIC: Normal. LABORATORY DATA: White count 7.6, hemoglobin 15.5, hematocrit 39.7, and platelets 284. Chemistry; sodium 141, potassium 4.1, chloride 105, bicarb 27, BUN 15, and creatinine 0.7. Liver function test is normal. DISCHARGE DIAGNOSES: 1. Chest pain; etiology probably anxiety related, noncardiac, never had a stress test. 2. Left-sided tremors and weakness and follow up with a neurologist. 3. Hypertension. 4. Hypercholesterolemia. 5. Rectal pain due to rectal prolapse. 6. Chronic anxiety. 7. History of alcohol abuse. PLAN: Discharge home. Follow up in office within a week. Harrison Mccall MD
== END 2018-05-12 15:05 | disposition home or self-care (01) ==
LOC: ED 15:00 → ERH 18:01 → 2RNO 22:54
PROVIDERS: ADMIT Internal Medicine; ATTEND Internal Medicine
DX: R07.89 Other chest pain (principal); I25.10 Atherosclerotic heart disease of native coronary artery without angina pectoris; I10 Essential (primary) hypertension; E78.00 Pure hypercholesterolemia, unspecified; E78.5 Hyperlipidemia, unspecified; J44.9 Chronic obstructive pulmonary disease, unspecified; N40.0 Benign prostatic hyperplasia without lower urinary tract symptoms; K21.9 Gastro-esophageal reflux disease without esophagitis; R25.1 Tremor, unspecified; H53.8 Other visual disturbances; K25.9 Gastric ulcer, unspecified as acute or chronic, without hemorrhage or perforation; F17.210 Nicotine dependence, cigarettes, uncomplicated; F10.10 Alcohol abuse, uncomplicated; N28.1 Cyst of kidney, acquired; Z95.5 Presence of coronary angioplasty implant and graft; K62.3 Rectal prolapse
CPT/HCPCS: 36415; 71045; 78452; 80053; 80061; 81003; 82550; 83036; 83615; 83735; 84100; 84443; 84484; 85025; 93005; 93017; 99285; A9502; G0378

== ENCOUNTER 2018-05-16 21:17 | Inpatient (IN) | payer MEDICARE, OTHER ==
[2018-05-16 21:17] VITALS: BMI 23.5
--- NOTE | 2018-05-16 21:52 | ED PDOC ---
Arrival/HPI - General Chief Complaint: Abdominal Pain Historian: Patient - History of Present Illness Narrative History of Present Illness (Text): 05/16/18 21:43 58 y/o male, pmh including htn/hld/gerd/CAD/chronic abdominal pain, alcohol abuse, allergic to fluoroquinolones and flagyl, c/o lower abdominal pain x 2 days. Pt. stated that he has this abdominal pain for over 1.5 years, started again 2 days ago, had an episode of vomiting but resolved, no diarrhea, no chest pain or shortness of breath, no flank pain, no numbness or tingling, no diarrhea, no change in vision, no other medical or psychological complaints. 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) Other/Comment: NEUROPATHY - HEENT Hx HEENT Disorder: Yes (PT STATES HE HAS DECREASED PHERIPHERAL VISION SPECIALLY L EYE) - Renal Hx Renal Disorder: No - Endocrine/Metabolic Hx Endocrine Disorders: Yes Hx Hypothyroidism: Yes (PT DENIES) - Hematological/Oncological Hx Blood Disorders: Yes Hx Anemia: Yes (IRON DEFICIENCY ANEMIA) - Integumentary Hx Dermatological Disorder: Yes (TATTOOS) - Musculoskeletal/Rheumatological Hx Musculoskeletal Disorders: Yes (ATAXIA) Hx Falls: Yes Hx Fractures: Yes ((rib/sternum)) Hx Unsteady Gait: Yes - Gastrointestinal Hx Gastrointestinal Disorders: Yes (H/O RECTAL PROLAPSE,COLONIC MASS,) Hx Diverticulitis: Yes Hx Gastrointestinal Ulcer: Yes Hx Pancreatitis: (pt denies) Other/Comment: duoduenal ulcers,HEMORRHOIDS,GASTRITIS - Genitourinary/Gynecological Hx Genitourinary Disorders: Yes Hx Prostate Problems: Yes (BPH) - Psychiatric Hx Psychophysiologic Disorder: Yes (SMOKES CIGARETTES,DRINKS BEER EVERY NOW AND THEN,TRIED MARIJUANA,BENZO) Hx Anxiety: Yes Hx Depression: Yes Hx Substance Use: Yes (TRIED MARIJUANA DID NOT LIKE IT.BENZO) - Past Surgical History Past Surgical History: No Previous - Surgical History Hx Coronary Stent: Yes (x5) - Anesthesia Hx Anesthesia: No Hx Anesthesia Reactions: No Hx Malignant Hyperthermia: No - Suicidal Assessment Feels Threatened In Home Enviroment: No Family/Social History - Physician Review Nursing Documentation Reviewed: Yes Family/Social History: Unknown Family HX Smoking Status: Current Some Days Smoker Hx Alcohol Use: Yes (BEER EVERY NOW AND THEN) Hx Substance Use: Yes (TRIED MARIJUANA DID NOT LIKE IT.BENZO) Hx Substance Use Treatment: No Allergies/Home Meds Allergies/Adverse Reactions: Allergies ciprofloxacin Allergy (Severe, Verified 05/11/18 19:28) NUMBNESS levofloxacin [From Levaquin] Allergy (Verified 05/11/18 19:28) NUMBNESS metronidazole [From Flagyl] Allergy (Verified 05/11/18 19:28) SWELLING Home Medications: Home Meds Medication Instructions Recorded Confirmed Famotidine [Pepcid] 20 mg PO DAILY 03/07/18 05/11/18 Lansoprazole [Prevacid] 30 mg PO DAILY 03/07/18 05/11/18 diaZEpam [Valium] 5 mg PO PRN PRN 03/21/18 05/11/18 Oxycodone HCl/Acetaminophen 1 tab PO PRN PRN 03/25/18 05/11/18 [Oxycodone-Acetaminophen 5-325] Aspirin [Ecotrin] 81 mg PO DAILY 05/11/18 05/11/18 Review of Systems - Review of Systems Constitutional: absent: Fatigue, Fevers Eyes: absent: Vision Changes ENT: absent: Hearing Changes Respiratory: absent: SOB, Cough Cardiovascular: absent: Chest Pain Gastrointestinal: Abdominal Pain, Vomiting. absent: Diarrhea, Nausea Musculoskeletal: absent: Arthralgias, Back Pain Skin: absent: Rash, Pruritis, Other Neurological: absent: Headache, Dizziness Endocrine: absent: Diaphoresis Psychiatric: absent: Anxiety, Depression, Suicidal Ideation Physical Exam Vital Signs Reviewed: Yes Vital Signs Temp Pulse Resp BP Pulse Ox 05/16/18 21:39 98.1 F 78 18 133/81 97 Temperature: Afebrile Blood Pressure: Normal Pulse: Regular Respiratory Rate: Normal Appearance: Positive for: Well-Appearing, Non-Toxic, Comfortable Pain Distress: Moderate Mental Status: Positive for: Alert and Oriented X 3 - Systems Exam Head: Present: Atraumatic, Normocephalic Pupils: Present: PERRL Extroacular Muscles: Present: EOMI Conjunctiva: Present: Normal Mouth: Present: Moist Mucous Membranes Neck: Present: Normal Range of Motion Respiratory/Chest: Present: Clear to Auscultation, Good Air Exchange. No: Respiratory Distress, Accessory Muscle Use Cardiovascular: Present: Regular Rate and Rhythm, Normal S1, S2. No: Murmurs Abdomen: Present: Tenderness (LLQ). No: Distention, Peritoneal Signs, Rebound, Guarding Back: Present: Normal Inspection. No: CVA Tenderness, Midline Tenderness, Paraspinal Tenderness, Pain with Leg Raise, Decubitus Ulcer Upper Extremity: Present: Normal Inspection. No: Cyanosis, Edema Lower Extremity: Present: Normal Inspection. No: Edema Neurological: Present: GCS=15, CN II-XII Intact, Speech Normal, Motor Func Grossly Intact, Normal Cerebellar Funct, Gait Normal, Memory Normal Skin: Present: Warm, Dry, Normal Color. No: Rashes Psychiatric: Present: Alert, Oriented x 3, Normal Insight, Normal Concentration Medical Decision Making ED Course and Treatment: 05/16/18 22:08 -Labs -CT abdomen and pelvis -IV pepcid/zofran/morphine -Observe and reassess 05/17/18 00:39 -Labs are non significant -UA show no UTI -CT abdomen and pelvis Evidence of gastritis and duodenitis. Diverticulosis coli with evidence of chronic diverticulitis involving the sigmoid colon. Mild hepatomegaly. -Pt. feels improved but still in pain, chronic diverticulitis but there is pain which I will treat. He feels nauseous and unable to tolerate PO, will admit for observation. -IV zosyn ordered as he is allergic to flagyl and fluoroquinolones. -I spoke to the pmd DR. Phillip which Dr. phillip agreed to keep the patient as o bservation with routine consult for Dr. Verdugo on the case as consult. - RAD Interpretation Radiology Orders: EXAM: CT Abdomen and Pelvis with IV contrast CLINICAL HISTORY: PAIN TECHNIQUE: Axial computed tomography images of the abdomen and pelvis with intravenous contrast. 275.88 mGy-cm CONTRAST: With; OMNI 350 100ML COMPARISON: Comparison is made to prior CT abdomen and pelvis examination dated 03/08/2018. FINDINGS: LUNG BASES: The lung bases appear clear. No pleural effusions are seen. LIVER: Mild hepatomegaly. The liver measured 16.9 cm in the midclavicular line. GALLBLADDER AND BILE DUCTS: The gallbladder appears within normal limits. No radioopaque gallstones are seen. No biliary ductal dilatation is evident. PANCREAS: Unremarkable. SPLEEN: Unremarkable. ADRENAL GLANDS: Unremarkable. KIDNEYS, URETERS, AND BLADDER: Both kidneys are normal in size and position. A 3.7 x 3.0 cm cyst arises from the posterior mid-upper left renal pole.. There is no hydronephrosis or hydroureter. No urinary calculi are seen. STOMACH AND BOWEL: Mucosal wall thickening of the stomach and duodenum are identified with fluid in the lumen thought compatible with gastritis and duodenitis. No evidence of bowel obstruction. No evidence suggesting enteritis. Mild diverticulosis coli of the sigmoid colon with associated mucosal wall thickening thought compatible with chronic diverticulitis. No evidence of acute diverticulitis detected. APPENDIX: No evidence of acute appendicitis on CT examination. PERITONEUM: No free fluid. No free air. LYMPH NODES: No lymphadenopathy is evident. REPRODUCTIVE: Several small benign appearing calcifications are seen in the central zones. Otherwise, unremarkable as visualized. VASCULATURE: No evidence of abdominal aortic aneurysm. Extensive atherosclerotic vascular plaquing is noted. BONES: No aggressive appearing osseous lesion. No acute osseous pathology evident. There is evidence of mild degenerative disc disease at L5-S1. A 6.0 mm sclerotic focus is seen in the posterior T12 vertebral body thought compatible with a small bone island. IMPRESSION: 1. Evidence of gastritis and duodenitis. 2. Diverticulosis coli with evidence of chronic diverticulitis involving the sigmoid colon. 3. Mild hepatomegaly. Electronically signed on May 17, 2018 12:04:27 AM EDT by: Luis Gonzalez M.D., Certified by [facility], [facility], Neurorad[facility] [place]: Radiologist Disposition/Present on Arrival - Present on Arrival Any Indicators Present on Arrival: No History of DVT/PE: No History of Uncontrolled Diabetes: No Urinary Catheter: No History of Decub. Ulcer: No History Surgical Site Infection Following: None - Disposition Have Diagnosis and Disposition been Completed?: Yes Diagnosis: Diverticulitis, Nausea & vomiting Disposition: HOSPITALIZED Disposition Time: 00:41 Patient Plan: Admission, Observation Condition: STABLE Referrals: Harrison Phillip MD [Primary Care Provider] - Follow up with primary Forms: [facility] (Kyrgyz)
[2018-05-16] MEDS ORDERED: Morphine 4 mg/ml ISec IVP STA (21:53)
[2018-05-16 22:20] LABS: BASO # 0.02 K/mm3 (0.0-2.0); BASO % 0.3 % (0.0-3.0); EOS # 0.3 (0.0-0.7); EOS % 3.7 % (1.5-5.0); HEMOGLOBIN 14.7 g/dL (14.0-18.0); LYMPH # 1.6 (1.2-3.4); LYMPH % 20.3 % (22.0-35.0); MEAN CORPUSCULAR HEMOGLOBIN 32.5 pg (25.0-35.0); MEAN CORPUSCULAR HGB CONC 33.9 g/dl (31.0-37.0); MEAN PLATELET VOLUME 9.5 fl (7.0-11.0); MONO # 0.6 (0.1-0.6); MONO % 7.7 % (1.0-6.0); RBC 4.52 10^6/uL (3.5-6.1); RED CELL DISTRIBUTION WIDTH 13.9 % (11.5-14.5); WHITE BLOOD COUNT 7.9 10^3/uL (4.5-11.0)
[2018-05-16 22:41] LABS: ALB/GLOB RATIO 1.1 (1.1-1.8); ALBUMIN 3.9 g/dL (3.0-4.8); ALT/SGPT 7 U/L (7-56); AST/SGOT 29 U/L (17-59); BLOOD UREA NITROGEN 14 mg/dL (7-21); CALCIUM 9.5 mg/dL (8.4-10.5); GFR NON-AFRICAN AMERICAN > 60; LIPASE 76 U/L (23-300); TROPONIN I < 0.01 ng/mL
[2018-05-16] MEDS ORDERED: Iohexol 350 MG/100 ML VIAL ONE (23:06)
[2018-05-16 23:18] LABS: URINE BILIRUBIN NEGATIVE (NEGATIVE); URINE BLOOD NEGATIVE (NEGATIVE); URINE GLUCOSE (UA) NEGATIVE (NEGATIVE); URINE LEUKOCYTE ESTERASE NEGATIVE Leu/uL (NEGATIVE); URINE PROTEIN NEGATIVE mg/dL (<30 mg/dL); URINE UROBILINOGEN 0.2 E.U./dL (<1 E.U./dL)
[2018-05-16 23:19] LABS: URINE APPEARANCE CLEAR (CLEAR); URINE COLOR YELLOW (YELLOW)
[2018-05-17] MEDS ORDERED: Piperacillin/Tazobact 3.375 gm 100 ML IVPB STA (00:39)
--- NOTE | 2018-05-17 08:18 | CP.PCM.CON ---
<Archie Rivero - Last Filed: 05/17/18 10:58> History of Present Illness - History of Present Illness History of Present Illness: Anuel Whitt is a 58M presenting again for LLQ abdominal pain. Patient appears comfortable in hospital bed, but states he is in constant pain. He does not want to converse about the timing, location, associated symptoms of his pain currently. He stated, "I don't want to go over this again, I just want to know what is wrong with me". I tried to explain that answering these questions may help him, but again he brushed it off. He states he wants pain meds and antibiotics. He was [place] [facility] [place]. He had a colonoscopy which did not show any active disease. He was asked to avoid constipation and use laxatives. CT A/P in ED showed mucosal thickening of stomach and duodenum, diverticulosis, chronic but no active diverticulitis as well as moderate amount of stool in the colon. Labs were unremarkable. PMH: Duodenal and jejunum ulcers while on NSAIDs. CAD s/p multiple stents. PSH: lung bx, multiple colonoscopies and endoscopies. Meds: as per MAR Allergies: reviewed; poor tolerance to meds, no allergic rxns SHx: heavy tobacco and EtOH use FHx: sister w/ thyroid CA, mother w/ colon/liver CA 12pt ROS completed and negative except for above. 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) Other/Comment: NEUROPATHY - HEENT Hx HEENT Problems: Yes (PT STATES HE HAS DECREASED PHERIPHERAL VISION SPECIALLY L EYE) - RENAL Hx Chronic Kidney Disease: No - ENDOCRINE/METABOLIC Hx Endocrine Disorders: No - HEMATOLOGICAL/ONCOLOGICAL Hx Blood Disorders: Yes Hx Anemia: Yes (IRON DEFICIENCY ANEMIA) - INTEGUMENTARY Hx Dermatological Problems: Yes (TATTOOS) - MUSCULOSKELETAL/RHEUMATOLOGICAL Hx Musculoskeletal Disorders: Yes (ATAXIA) Hx Falls: Yes Hx Unsteady Gait: Yes - GASTROINTESTINAL Hx Gastrointestinal Disorders: Yes (H/O RECTAL PROLAPSE,COLONIC MASS,) Hx Diverticulitis: Yes Other/Comment: duoduenal ulcers,HEMORRHOIDS,GASTRITIS - GENITOURINARY/GYNECOLOGICAL Hx Genitourinary Disorders: Yes Hx Prostate Problems: Yes (BPH) - PSYCHIATRIC Hx Psychophysiologic Disorder: Yes Hx Anxiety: Yes Hx Depression: Yes Hx Substance Use: No - SURGICAL HISTORY Hx Surgeries: Yes (CARDIAC STENTS X 5) Hx Coronary Stent: Yes (x5) - ANESTHESIA Hx Anesthesia: No Hx Anesthesia Reactions: No Hx Malignant Hyperthermia: No Meds Allergies/Adverse Reactions: Allergies Allergy/AdvReac Type Severity Reaction Status Date / Time ciprofloxacin Allergy Severe NUMBNESS Verified 05/11/18 19:28 levofloxacin [From Levaquin] Allergy NUMBNESS Verified 05/11/18 19:28 metronidazole [From Flagyl] Allergy SWELLING Verified 05/11/18 19:28 - Medications Medications: Current Medications Aspirin (Ecotrin) 81 mg PO DAILY [facility] Atorvastatin Calcium (Lipitor) 40 mg PO DAILY [facility] Clopidogrel Bisulfate (Plavix) 75 mg PO QAM [facility] Famotidine (Pepcid) 20 mg PO DAILY [facility] Pantoprazole Sodium (Protonix Ec Tab) 40 mg PO 0600 [facility] Pantoprazole Sodium (Protonix Ec Tab) 40 mg PO DAILY [facility] Polyethylene Glycol (Miralax) 17 gm PO BID [facility] Physical Exam - Constitutional Appears: Non-toxic, No Acute Distress, Agitated - Head Exam Head Exam: ATRAUMATIC, NORMAL INSPECTION - Eye Exam Eye Exam: EOMI, Normal appearance - Respiratory Exam Respiratory Exam: Clear to Auscultation Bilateral, NORMAL BREATHING PATTERN - Cardiovascular Exam Cardiovascular Exam: REGULAR RHYTHM, +S1, +S2 - GI/Abdominal Exam GI & Abdominal Exam: Normal Bowel Sounds, Soft, Tenderness. absent: Organomegaly - Extremities Exam Extremities exam: Positive for: normal inspection. Negative for: pedal edema - Psychiatric Exam Psychiatric exam: Agitated, Anxious - Skin Skin Exam: Normal Color, Warm Results - Vital Signs Recent Vital Signs: Last Vital Signs Temp 97.9 F 05/17/18 08:08 Pulse 59 L 05/17/18 08:08 Resp 20 05/17/18 08:08 BP 102/60 05/17/18 08:08 Pulse Ox 95 05/17/18 08:08 - Labs Result Diagrams: 05/16/18 22:02 05/16/18 22:02 Labs: Laboratory Results - last 24 hr 05/16/18 05/16/18 05/16/18 22:02 22:02 22:47 WBC 7.9 RBC 4.52 Hgb 14.7 Hct 43.4 MCV 96.0 MCH 32.5 MCHC 33.9 RDW 13.9 Plt Count 296 MPV 9.5 Neut % (Auto) 68.0 Lymph % (Auto) 20.3 L [place] % (Auto) 7.7 H Eos % (Auto) 3.7 Baso % (Auto) 0.3 Lymph # (Auto) 1.6 [place] # (Auto) 0.6 Eos # (Auto) 0.3 Baso # (Auto) 0.02 Absolute Neuts (auto) 5.37 Sodium 140 Potassium 4.4 Chloride 105 Carbon Dioxide 27 Anion Gap 13 BUN 14 Creatinine 0.7 L Est GFR ( Amer) > 60 Est GFR (Non-Af Amer) > 60 Random Glucose 101 Calcium 9.5 Magnesium 1.9 Total Bilirubin 0.7 AST 29 ALT 7 Alkaline Phosphatase 52 Troponin I < 0.01 Total Protein 7.5 Albumin 3.9 Globulin 3.6 Albumin/Globulin Ratio 1.1 Lipase 76 Urine Color Yellow Urine Appearance Clear Urine pH 6.0 Ur Specific [place] 1.020 Urine Protein Negative Urine Glucose (UA) Negative Urine Ketones Trace H Urine Blood Negative Urine Nitrate Negative Urine Bilirubin Negative Urine Urobilinogen 0.2 Ur Leukocyte Esterase Negative Assessment & Plan - Assessment and Plan (Free Text) Assessment: #Abdominal pain #Ulcers of jejunum - possible IBD vs ischemia vs NSAID. Note outpatient IBD serology showed ASCA IgA 23.9 "Equivocal" #CAD s/p stents #Psych disorder, alcohol abuse PLAN: -Start PPI -Start bowel regimen -Order MRA abdomen to evaluate for vascular disease -Recommend outpatient video capsule endoscopy -Continue CLD -Recommend colorectal surgeon to evaluate rectal area with EUS. Case discussed with Dr. Verdugo, see attestation. - Date & Time Date: 05/17/18 Time: 08:47 <Judith Verdugo V - Last Filed: 05/17/18 23:58> Meds - Medications Medications: Current Medications Aspirin (Ecotrin) 81 mg PO DAILY [facility] Last Admin: 05/17/18 10:16 Dose: Not Given Atorvastatin Calcium (Lipitor) 40 mg PO DAILY [facility] Last Admin: 05/17/18 10:15 Dose: 40 mg Clopidogrel Bisulfate (Plavix) 75 mg PO QAM [facility] Last Admin: 05/17/18 10:53 Dose: 75 mg Ketorolac Tromethamine (Toradol) 30 mg IVP Q12 PRN PRN Reason: Pain, severe (8-10) Oxycodone/Acetaminophen (Percocet 5/325 Mg Tab) 0.5 tab PO Q6H PRN PRN Reason: Pain, severe (8-10) Stop: 05/20/18 09:54 Pantoprazole Sodium (Protonix Ec Tab) 40 mg PO 0600 [facility] Polyethylene Glycol (Miralax) 17 gm PO BID [facility] Last Admin: 05/17/18 10:17 Dose: Not Given Results - Vital Signs Recent Vital Signs: Last Vital Signs Temp 97.9 F 05/17/18 16:10 Pulse 59 L 05/17/18 16:10 Resp 20 05/17/18 16:10 BP 102/60 05/17/18 16:10 Pulse Ox 95 05/17/18 16:10 - Labs Result Diagrams: 05/16/18 22:02 05/16/18 22:02 Attending/Attestation - Attestation I have personally seen and examined this patient.: Yes I have fully participated in the care of the patient.: Yes I have reviewed all pertinent clinical information: Yes Notes (Text): This is an addendum to the GI consultation report dictated by GI fellow. The patient was seen and evaluated along with the GI fellow earlier today. Patient has episodes of the left-sided abdominal discomfort etiology unclear. The previous abdominal Doppler studies were reviewed. Would request MRA to further evaluate DEEPTHI. Patient did have occasional ulcers biopsies were reviewed with the pathologist MRA findings were discussed Patient would benefit from capsule endoscopy as an outpatient Patient be referred to colorectal surgeon to further evaluate the anorectal abnormalities. Flexible sigmoidoscopy did not reveal a mass lesion Would consider trial of Entocort after reviewing the above workup Thank you Dr. Regalado for allowing us to put up in the care of the patient 05/17/18 23:54
[2018-05-17] MEDS ORDERED: Oxycodone/Acetaminophen 5/325 mg Tab PO PRN (09:53)
--- NOTE | 2018-05-17 09:59 | CT ---
Date of service: 05/16/2018 PROCEDURE: CT Abdomen and Pelvis with contrast HISTORY: Lt. flank/abdominal pain x 1.5 years, 2 days pain COMPARISON: 03/08/2018 TECHNIQUE: Contrast dose: 100 cc of Omni 350 Radiation dose: Total exam DLP = 275.88 mGy-cm. This CT exam was performed using one or more of the following dose reduction techniques: Automated exposure control, adjustment of the mA and/or kV according to patient size, and/or use of iterative reconstruction technique. FINDINGS: LOWER THORAX: Unremarkable. LIVER: Unremarkable. No gross lesion or ductal dilatation. GALLBLADDER AND BILE DUCTS: Unremarkable. PANCREAS: Unremarkable. No gross lesion or ductal dilatation. SPLEEN: Unremarkable. ADRENALS: Unremarkable. No mass. KIDNEYS AND URETERS: Unremarkable. No hydronephrosis. No solid mass. VASCULATURE: Unremarkable. No aortic aneurysm. Aortic calcification BOWEL: There is moderate mural thickening of the stomach which could be secondary to lack of distension. Gastritis is possible. There is mild diverticulosis of the sigmoid colon APPENDIX: Normal appendix. PERITONEUM: Unremarkable. No free fluid. No free air. LYMPH NODES: Unremarkable. No enlarged lymph nodes. BLADDER: Unremarkable. REPRODUCTIVE: Unremarkable. BONES: No acute fracture. OTHER FINDINGS: The report concurs with the preliminary [facility] report IMPRESSION: No acute intra-abdominal findings
[2018-05-17] MEDS ORDERED: Non Formulary Medication (Lansoprazole [Prevacid] 30 MG) PO SCH (10:00)
[2018-05-17] MEDS: Pantoprazole 40 mg EC Tab PO SCH ×2 (10:17→10:53)
[2018-05-17] MEDS: POLYETHYLENE GLYCOL 3350 17 GM/Dose PACKET PO SCH ×2 (10:17→10:52)
[2018-05-17] MEDS ORDERED: Gadodiamide 287 MG/ML VIAL (20ML) IV ONE (20:28)
[2018-05-18] MEDS: Pantoprazole 40 mg EC Tab PO SCH (06:07)
[2018-05-18] MEDS: Oxycodone/Acetaminophen 5/325 mg Tab PO PRN ×2 (06:07→21:53)
--- NOTE | 2018-05-18 10:13 | CT ---
Date of service: 05/18/2018 PROCEDURE: CT Chest without contrast HISTORY: left side cheast pain COMPARISON: 05/16/2018 TECHNIQUE: Contiguous axial images were obtained through the chest without intravenous contrast enhancement. Sagittal and coronal reconstructions were performed. Radiation dose: Total exam DLP = 353.14 mGy-cm. This CT exam was performed using one or more of the following dose reduction techniques: Automated exposure control, adjustment of the mA and/or kV according to patient size, and/or use of iterative reconstruction technique. FINDINGS: LUNGS: Biapical bullous emphysematous changes. Mild linear fibrosis in the right lower lobe. MEDIASTINUM: Unremarkable thoracic aorta. No aneurysm. Normal sized heart. Main pulmonary artery unremarkable. No vascular congestion. No lymphadenopathy. Coronary artery calcifications and stent placement. PLEURA: No pleural fluid. No pneumothorax. BONES: Question old fracture of the right posterior 12th rib. UPPER ABDOMEN: Grossly unremarkable. OTHER FINDINGS: None. IMPRESSION: Question old fracture of the right posterior 12th rib. Biapical bullous emphysematous changes. Mild linear fibrosis in the right lower lobe.
[2018-05-18] MEDS: POLYETHYLENE GLYCOL 3350 17 GM/Dose PACKET PO SCH (11:39)
--- NOTE | 2018-05-18 13:11 | CP.PCM.PN ---
<Marily Goldberg - Last Filed: 05/18/18 17:34> Subjective - Date & Time of Evaluation Date of Evaluation: 05/18/18 Time of Evaluation: 10:00 - Subjective Subjective: Marily Goldberg, PGY2, GI Progress Note for Dr Verdugo: Patient seen and examined at bedside. No acute events overnight. Patient appears comfortable in bed, however complain of same 10/10 pain in LUQ and LLQ, denies nausea, vomiting, fevers, chills, hematochezia, melena. Patient does report constipation for 3 days, partly owing to that he has been having liquids. Objective - Vital Signs/Intake and Output Vital Signs (last 24 hours): Temp Pulse Resp BP Pulse Ox 97.9 F 59 L 20 102/60 95 05/17/18 16:10 05/17/18 16:10 05/17/18 16:10 05/17/18 16:10 05/17/18 16:10 - Medications Medications: Current Medications Aspirin (Ecotrin) 81 mg PO DAILY [facility] Last Admin: 05/18/18 11:39 Dose: 81 mg Atorvastatin Calcium (Lipitor) 40 mg PO DAILY [facility] Last Admin: 05/18/18 11:39 Dose: 40 mg Clopidogrel Bisulfate (Plavix) 75 mg PO QAM [facility] Last Admin: 05/18/18 11:39 Dose: 75 mg Ketorolac Tromethamine (Toradol) 30 mg IVP Q12 PRN PRN Reason: Pain, severe (8-10) Oxycodone/Acetaminophen (Percocet 5/325 Mg Tab) 0.5 tab PO Q6H PRN PRN Reason: Pain, severe (8-10) Stop: 05/20/18 09:54 Last Admin: 05/18/18 06:07 Dose: 0.5 tab Pantoprazole Sodium (Protonix Ec Tab) 40 mg PO 0600 [facility] Last Admin: 05/18/18 06:07 Dose: 40 mg Polyethylene Glycol (Miralax) 17 gm PO BID [facility] Last Admin: 05/18/18 11:39 Dose: 17 gm - Labs Labs: 05/16/18 22:02 05/16/18 22:02 - Constitutional Appears: Non-toxic, No Acute Distress - Head Exam Head Exam: ATRAUMATIC, NORMOCEPHALIC - Eye Exam Eye Exam: EOMI, PERRL. absent: Nystagmus, Scleral icterus Pupil Exam: NORMAL ACCOMODATION, PERRL. absent: Miosis, Mydriatic - ENT Exam ENT Exam: Mucous Membranes Moist - Neck Exam Neck Exam: Full ROM - Respiratory Exam Respiratory Exam: Clear to Ausculation Bilateral, NORMAL BREATHING PATTERN. absent: Accessory Muscle Use, Chest Wall Tenderness, Respiratory Distress, Stridor - Cardiovascular Exam Cardiovascular Exam: RRR, +S1, +S2. absent: Murmur - GI/Abdominal Exam GI & Abdominal Exam: Soft, Tenderness (Mild TTP in LUQ and LLQ), Normal Bowel Sounds. absent: Distended, Firm, Guarding, Rigid, Rebound - Extremities Exam Extremities Exam: Normal Inspection. absent: Calf Tenderness, Pedal Edema - Back Exam Back Exam: NORMAL INSPECTION - Neurological Exam Neurological Exam: Alert, Awake, Oriented x3 - Psychiatric Exam Psychiatric exam: Normal Affect, Normal Mood - Skin Skin Exam: Dry, Normal Color, Warm Assessment and Plan - Assessment and Plan (Free Text) Assessment: #Abdominal pain #Ulcers of jejunum - possible IBD vs ischemia vs NSAID. Note outpatient IBD serology showed ASCA IgA 23.9 "Equivocal" #CAD s/p stents #Psych disorder, alcohol abuse #Constipation -MRA abdomen normal. -CT chest shows questionable old fracture of right 12th posterior rib. -continue with PPI, miralax bid. -Will give mag citrate x1 -Recommend outpatient video capsule endoscopy -Will advance to [facility]. -Encouraged patient to drink lots of fluids. -Recommend colorectal surgeon to evaluate rectal area with EUS. Case discussed with Dr. Verdugo. <Judith Verdugo V - Last Filed: 05/18/18 23:15> Objective - Vital Signs/Intake and Output Vital Signs (last 24 hours): Temp Pulse Resp BP Pulse Ox 97.7 F 57 L 20 113/66 95 05/18/18 06:00 05/18/18 06:00 05/18/18 06:00 05/18/18 06:00 05/18/18 06:00 Intake and Output: 05/18/18 05/19/18 18:59 06:59 Intake Total 1680 Balance 1680 - Medications Medications: Current Medications Aspirin (Ecotrin) 81 mg PO DAILY [facility] Last Admin: 05/18/18 11:39 Dose: 81 mg Atorvastatin Calcium (Lipitor) 40 mg PO DAILY [facility] Last Admin: 05/18/18 11:39 Dose: 40 mg Clopidogrel Bisulfate (Plavix) 75 mg PO QAM [facility] Last Admin: 05/18/18 11:39 Dose: 75 mg Ketorolac Tromethamine (Toradol) 30 mg IVP Q12 PRN PRN Reason: Pain, severe (8-10) Last Admin: 05/18/18 20:18 Dose: 30 mg Lidocaine HCl (Xylocaine 2%) 1 ea TOP BID [facility] Last Admin: 05/18/18 18:56 Dose: 1 appl Oxycodone/Acetaminophen (Percocet 5/325 Mg Tab) 0.5 tab PO Q6H PRN PRN Reason: Pain, severe (8-10) Stop: 05/20/18 09:54 Last Admin: 05/18/18 21:53 Dose: 0.5 tab Pantoprazole Sodium (Protonix Ec Tab) 40 mg PO 0600 [facility] Last Admin: 05/18/18 06:07 Dose: 40 mg Polyethylene Glycol (Miralax) 17 gm PO BID [facility] Last Admin: 05/18/18 11:39 Dose: 17 gm - Labs Labs: 05/16/18 22:02 05/16/18 22:02 Attending/Attestation - Attestation I have personally seen and examined this patient.: Yes I have fully participated in the care of the patient.: Yes I have reviewed all pertinent clinical information, including history, physical exam and plan: Yes Notes (Text): This patient was seen and evaluated here earlier along with the resident. This is an addendum to the GI progress report dictated by the resident. Patient complains of constipation and some intermittent rectal discomfort. Patient still complains of the left-sided abdominal/loin pain.. Would recommend 1. Sided of magnesia 1 bottle for constipation today Use MiraLAX as needed for constipation 2. Sitz bath, possibility of fissure has an etiology to be considered she may benefit from nifedipine pararectal ointment as an outpatient 3. Patient is very concerned about the MRI findings I did explain to her about seeing a but is seen in the flexible sigmoidoscopy finding. Patient is still anxious and concerned she would would benefit from the colorectal surgical evaluation with EUS examination. 4. Patient did have jejunal ulcers etiology is unclear would recommend capsule endoscopy as an outpatient and consider empiric treatment with Entocort after the capsule endoscopy reviewed with radiologist Dr. Brower. [facility] DEEPTHI were appear to be patent Thank you Dr. Mccall for allowing us to participate in the care of the patient 05/18/18 23:02
--- NOTE | 2018-05-18 14:47 | MRI ---
Date of service: 05/17/2018 PROCEDURE: MRA of the abdomen with and without contrast HISTORY: evaluate celiac artery, SMA, DEEPTHI COMPARISON: TECHNIQUE: MR angiography of the abdomen was performed with and without IV contrast. FINDINGS: The aorta is normal in caliber. The aorta is smooth in contour. The celiac and SMA are patent. The renal arteries are patent. The DEEPTHI also appears to be patent. IMPRESSION: Negative study
[2018-05-18] MEDS ORDERED: Magnesium Citrate Oral SOL (300 ml) PO ONE (16:10)
[2018-05-18] MEDS: Lidocaine 2% Jelly (30 ml) TOP SCH (18:56)
--- NOTE | 2018-05-18 20:19 | PN ---
DATE: 05/18/2018 SUBJECTIVE: Patient still complains of left-sided pain. He seems walking around, but still complain of left-side pain from the spine area all around the inferior rib area and down to the front of the abdomen. No other complaints. PHYSICAL EXAMINATION GENERAL: Temperature 97, heart rate is 57, blood pressure 113/66, respiration 20 and saturation 95% on room air. HEAD AND NECK: Normal. No JVD. No thyromegaly. CHEST: Clear bilateral. CARDIAC: First sound and second sound normal. No murmur, rub or gallop. ABDOMEN: Soft, nontender. EXTREMITIES: No edema. NEUROLOGICAL: Normal. LABS AND REPORTS: CT of the chest was done and it was reported as old fracture of the right posterior 12th rib and bi-apical bullous emphysematous changes, mid linear fibrosis in the right lower lobe. Other MRI of the abdomen was negative for any vascular stenosis or ischemia. Also patient had previously a CT of the abdomen and pelvis, which shows no acute pathology and was done with contrast. IMPRESSION AND PLAN: 1. Left-sided pain, looks like radicular pain, comes and goes and etiology unclear. We will get the MRI report. We will consult Dr. Harrison Adams, pain management to help us with the etiology of his pain, which could be coming from his spine or unclear. We will discuss further with him after he sees the patient. 2. Rectal prolapse and rectal pain. We will give lidocaine rectally as prescribed by Dr. Verdugo, 2% Xylocaine twice a day, continue that. 3. Coronary artery disease. Continue Plavix and aspirin. 4. Hypercholesterolemia, currently Lipitor. Continue current medication. Follow up clinically. Patient is otherwise stable. Harrison Mccall MD
--- NOTE | 2018-05-18 21:13 | PN ---
DATE: 05/17/2018 SUBJECTIVE: The patient still complains of left-sided pain in the renal area going all the way up front, it seems it is still not from the back down all the way up front kind of radicular pain. No tenderness. The patient still has the pain. No other complaints. No nausea. No vomiting. No fever. No chills. PHYSICAL EXAMINATION: VITAL SIGNS: Temperature is 97.9, heart rate 59, blood pressure 102/60, respirations 20, and saturation 95% on room air. HEAD AND NECK: Normal. No JVD. No thyromegaly. CHEST: Clear bilaterally. CARDIAC: First sound and second sound normal. No murmur, rub, or gallop. ABDOMEN: Soft and nontender. EXTREMITIES: No edema. NEUROLOGIC: Normal. The patient has no tenderness in the left renal area, but there is pain associated from his left renal area below the ribs all the way down to the periumbilical area. No tenderness. LABORATORY DATA: White count 7.9, hemoglobin 14.7, hematocrit 43.4, and platelets 296. His chemistry is normal. Blood sugar 129. Liver enzyme is normal. IMPRESSION AND PLAN: 1. Left-sided pain, according to the patient it is severe sometime and sometimes less and when it happens, it gives him very severe pain that he cannot walk. We will consider an etiology in the thoracic spine and/or lung area. We are going to get a CAT scan of the lung with no contrast and we will review the MRI of the thoracic spine he had as an outpatient. 2. The patient does have history of rectal pain. We did have endoscopy shows prolapse, still complain of pain. We will get an MRI of the abdomen. He had vascular events with coronary artery disease, multiple stents. We will get the MRI of the abdomen to rule out any vascular etiology. 3. Coronary artery disease. Continue Plavix. For hypercholesterolemia, he is on Lipitor. The patient otherwise seems doing well. Continue current therapy, question of whether has to do psychiatric illness or not, it does not look like. We will investigate and find out what is the reason for his pain and follow up with other consultants, Dr. Verdugo. Harrison Mccall MD [facility] # [phone]
[2018-05-19] MEDS ORDERED: Simethicone 80 mg Chewtab PO STA (00:02)
[2018-05-19] MEDS: Pantoprazole 40 mg EC Tab PO SCH (04:59)
--- NOTE | 2018-05-19 06:25 | CP.PCM.PN ---
Subjective - Date & Time of Evaluation Date of Evaluation: 05/19/18 Time of Evaluation: 06:21 - Subjective Subjective: Patient was seen because I was asked to co-sign order for Simethicone 80 mg PO x 1. When I saw patient it was not given yet. He was pacing in the room. Complained of pain in left costal margin and epigastric area for over a month. Has no other complaints now. This 58 year old white male is admitted with abdominal pain. Has PMH of: CAD. Multiple coronary stent placement. HTN. HLD. Chronic back pain. Rectal prolapse. GERD. Anxiety. Allergy to Quinolones,Metrondazole. Alcohol abuse. Objective - Vital Signs/Intake and Output Vital Signs (last 24 hours): Temp Pulse Resp BP Pulse Ox 97.7 F 57 L 20 113/66 95 05/18/18 06:00 05/18/18 06:00 05/18/18 06:00 05/18/18 06:00 05/18/18 06:00 Intake and Output: 05/18/18 05/19/18 18:59 06:59 Intake Total 1680 Balance 1680 - Medications Medications: Current Medications Aspirin (Ecotrin) 81 mg PO DAILY [facility] Last Admin: 05/18/18 11:39 Dose: 81 mg Atorvastatin Calcium (Lipitor) 40 mg PO DAILY [facility] Last Admin: 05/18/18 11:39 Dose: 40 mg Clopidogrel Bisulfate (Plavix) 75 mg PO QAM [facility] Last Admin: 05/18/18 11:39 Dose: 75 mg Ketorolac Tromethamine (Toradol) 30 mg IVP Q12 PRN PRN Reason: Pain, severe (8-10) Last Admin: 05/18/18 20:18 Dose: 30 mg Lidocaine HCl (Xylocaine 2%) 1 ea TOP BID [facility] Last Admin: 05/18/18 18:56 Dose: 1 appl Oxycodone/Acetaminophen (Percocet 5/325 Mg Tab) 0.5 tab PO Q6H PRN PRN Reason: Pain, severe (8-10) Stop: 05/20/18 09:54 Last Admin: 05/18/18 21:53 Dose: 0.5 tab Pantoprazole Sodium (Protonix Ec Tab) 40 mg PO 0600 [facility] Last Admin: 05/19/18 04:59 Dose: 40 mg Polyethylene Glycol (Miralax) 17 gm PO BID [facility] Last Admin: 05/18/18 11:39 Dose: 17 gm - Labs Labs: 05/16/18 22:02 05/16/18 22:02 - Constitutional Appears: Well, No Acute Distress - Head Exam Head Exam: ATRAUMATIC, NORMAL INSPECTION, NORMOCEPHALIC - Eye Exam Eye Exam: Normal appearance - ENT Exam ENT Exam: Normal External Ear Exam - Neck Exam Neck Exam: Normal Inspection - Respiratory Exam Respiratory Exam: NORMAL BREATHING PATTERN - Cardiovascular Exam Cardiovascular Exam: absent: JVD - GI/Abdominal Exam GI & Abdominal Exam: Tenderness (LUQ,Epigastric,Left flank.). absent: Distended - Rectal Exam Rectal Exam: Deferred - Exam Additional comments: Deferred. - Extremities Exam Extremities Exam: Normal Inspection - Back Exam Back Exam: NORMAL INSPECTION - Neurological Exam Neurological Exam: Alert, Awake, Oriented x3 - Psychiatric Exam Psychiatric exam: Normal Affect, Normal Mood - Skin Skin Exam: Normal Color Assessment and Plan - Assessment and Plan (Free Text) Assessment: Epigastric pain. Left costal pain. HLD. Chronic back pain. Rectal prolapse. GERD. Anxiety. Allergy to Quinolones,Metrondazole. Alcohol abuse. HTN. CAD. S/P coronary stents placements. Plan: Simethicone 80 mg PO x 1. Continue present management.
[2018-05-19] MEDS: POLYETHYLENE GLYCOL 3350 17 GM/Dose PACKET PO SCH (09:11)
[2018-05-19] MEDS: Lidocaine 2% Jelly (30 ml) TOP SCH ×2 (09:30→17:51)
--- NOTE | 2018-05-19 10:46 | CP.PCM.PN ---
<Marily Goldberg - Last Filed: 05/19/18 10:42> Subjective - Date & Time of Evaluation Date of Evaluation: 05/19/18 Time of Evaluation: 10:42 - Subjective Subjective: Marily Goldberg, PGY2, GI Progress Note for Dr Verdugo: Patient seen and examined at bedside. No acute events overnight. Pt reports 1 solid large BM and 3 liquidy brown BMs yesterday night after mag citrate. Reports mildly improving pain. States that he has some appetite and would like to try solid foods. Denies nausea, vomiting, fevers, chills, hematochezia, melen a. Objective - Vital Signs/Intake and Output Vital Signs (last 24 hours): Temp Pulse Resp BP Pulse Ox 97.4 F L 55 L 18 123/62 96 05/19/18 06:00 05/19/18 06:00 05/19/18 06:00 05/19/18 06:00 05/19/18 06:00 Intake and Output: 05/19/18 05/19/18 06:59 18:59 Intake Total 1680 120 Balance 1680 120 - Medications Medications: Current Medications Aspirin (Ecotrin) 81 mg PO DAILY [facility] Last Admin: 05/19/18 09:11 Dose: 81 mg Atorvastatin Calcium (Lipitor) 40 mg PO DAILY [facility] Last Admin: 05/19/18 09:11 Dose: 40 mg Clopidogrel Bisulfate (Plavix) 75 mg PO QAM [facility] Last Admin: 05/19/18 09:11 Dose: 75 mg Ketorolac Tromethamine (Toradol) 30 mg IVP Q12 PRN PRN Reason: Pain, severe (8-10) Last Admin: 05/18/18 20:18 Dose: 30 mg Lidocaine HCl (Xylocaine 2%) 1 ea TOP BID [facility] Last Admin: 05/19/18 09:30 Dose: Not Given Oxycodone/Acetaminophen (Percocet 5/325 Mg Tab) 0.5 tab PO Q6H PRN PRN Reason: Pain, severe (8-10) Stop: 05/20/18 09:54 Last Admin: 05/18/18 21:53 Dose: 0.5 tab Pantoprazole Sodium (Protonix Ec Tab) 40 mg PO 0600 [facility] Last Admin: 05/19/18 04:59 Dose: 40 mg Polyethylene Glycol (Miralax) 17 gm PO BID [facility] Last Admin: 05/19/18 09:11 Dose: 17 gm - Labs Labs: 05/16/18 22:02 05/16/18 22:02 - Additional Findings Additional findings: - Constitutional Appears: Non-toxic, No Acute Distress - Head Exam Head Exam: ATRAUMATIC, NORMOCEPHALIC - Eye Exam Eye Exam: EOMI, PERRL. absent: Nystagmus, Scleral icterus Pupil Exam: NORMAL ACCOMODATION, PERRL. absent: Miosis, Mydriatic - ENT Exam ENT Exam: Mucous Membranes Moist - Neck Exam Neck Exam: Full ROM - Respiratory Exam Respiratory Exam: Clear to Ausculation Bilateral, NORMAL BREATHING PATTERN. absent: Accessory Muscle Use, Chest Wall Tenderness, Respiratory Distress, Stridor - Cardiovascular Exam Cardiovascular Exam: RRR, +S1, +S2. absent: Murmur - GI/Abdominal Exam GI & Abdominal Exam: Soft, Normal Bowel Sounds. absent: Distended, Firm, Guarding, Rigid, Rebound - Extremities Exam Extremities Exam: Normal Inspection. absent: Calf Tenderness, Pedal Edema - Back Exam Back Exam: NORMAL INSPECTION - Neurological Exam Neurological Exam: Alert, Awake, Oriented x3 - Psychiatric Exam Psychiatric exam: Normal Affect, Normal Mood - Skin Skin Exam: Dry, Normal Color, Warm Assessment and Plan - Assessment and Plan (Free Text) Assessment: #Abdominal pain #Ulcers of jejunum - possible IBD vs ischemia vs NSAID. Note outpatient IBD serology showed ASCA IgA 23.9 "Equivocal" #CAD s/p stents #Psych disorder, alcohol abuse #Constipation -MRA abdomen normal. -CT chest shows questionable old fracture of right 12th posterior rib. -continue with PPI, miralax bid. -s/p mag citrate x1 -Recommend outpatient video capsule endoscopy -Will advance to soft, low fiber diet -Encouraged patient to drink lots of fluids. -Recommend colorectal surgeon to evaluate rectal area with EUS outpatient. Patient given names of colorectal surgeons including Dr Fabio Holm and Dr Olea. Patient states that he will follow up and make an appt. Case discussed with Dr. Verdugo. <Judith Verdugo V - Last Filed: 05/19/18 23:28> Objective - Vital Signs/Intake and Output Vital Signs (last 24 hours): Temp Pulse Resp BP Pulse Ox 97.4 F L 55 L 18 123/62 96 05/19/18 06:00 05/19/18 06:00 05/19/18 06:00 05/19/18 06:00 05/19/18 06:00 Intake and Output: 05/19/18 05/20/18 18:59 06:59 Intake Total 120 1500 Balance 120 1500 - Medications Medications: Current Medications Aspirin (Ecotrin) 81 mg PO DAILY [facility] Last Admin: 05/19/18 09:11 Dose: 81 mg Atorvastatin Calcium (Lipitor) 40 mg PO DAILY [facility] Last Admin: 05/19/18 09:11 Dose: 40 mg Clopidogrel Bisulfate (Plavix) 75 mg PO QAM [facility] Last Admin: 05/19/18 09:11 Dose: 75 mg Ketorolac Tromethamine (Toradol) 30 mg IVP Q12 PRN PRN Reason: Pain, severe (8-10) Last Admin: 05/18/18 20:18 Dose: 30 mg Lidocaine HCl (Xylocaine 2%) 1 ea TOP BID [facility] Last Admin: 05/19/18 17:51 Dose: Not Given Oxycodone/Acetaminophen (Percocet 5/325 Mg Tab) 0.5 tab PO Q6H PRN PRN Reason: Pain, severe (8-10) Stop: 05/20/18 09:54 Last Admin: 05/18/18 21:53 Dose: 0.5 tab Pantoprazole Sodium (Protonix Ec Tab) 40 mg PO 0600 [facility] Last Admin: 05/19/18 04:59 Dose: 40 mg Polyethylene Glycol (Miralax) 17 gm PO BID [facility] Last Admin: 05/19/18 09:11 Dose: 17 gm - Labs Labs: 05/16/18 22:02 05/16/18 22:02 Attending/Attestation - Attestation I have personally seen and examined this patient.: Yes I have fully participated in the care of the patient.: Yes I have reviewed all pertinent clinical information, including history, physical exam and plan: Yes Notes (Text): This is an addendum to the GI progress report dictated by with the resident. The patient was seen and evaluated here earlier today MRI scan was reviewed with radiologist. Patient would benefit from capsule endoscopy as an outpatient. Patient is still complains of the anal discomfort would benefit from colorectal surgical evaluation as an outpatient Slowly advance her diet 05/19/18 23:27
--- NOTE | 2018-05-19 10:46 | RAD ---
Date of service: 05/19/2018 PROCEDURE: Left ribs HISTORY: left sided pain, COMPARISON: TECHNIQUE: Three views FINDINGS: There is no evidence of rib fracture. There is no pneumothorax. IMPRESSION: Negative study
--- NOTE | 2018-05-19 13:59 | CON ---
DATE: 05/19/2018 LOCATION: Room 364, bed 1. REQUESTING PHYSICIAN: Harrison Mccall MD CHIEF COMPLAINT: Left-sided low back pain and left upper quadrant pain. HISTORY OF PRESENT ILLNESS: Mr. Whitt is a pleasant 58-year-old male who is complaining of left upper quadrant abdominal pain that extends to the back to his thoracic spine along his left lower rib cage. The patient stated that the pain comes as squeezing pain for 10 to 15 minutes everyday and severe and stated that when the pain comes the pain is and 10+/10. The patient is known to me with complain of low back pain that shoots down to lower extremity, but this is different mostly localized to the left lower rib cage and that perhaps around to the mid back. PAST MEDICAL HISTORY: Duodenal ulcer while on non-steroidal antiinflammatory, coronary artery disease, status post coronary stenting. PAST SURGICAL HISTORY: Lung biopsy, multiple colonoscopies and endoscopies. ALLERGIES: NO KNOWN DRUG ALLERGY, BUT THE PATIENT IS KNOWN TO HAVE POOR TOLERANCE TO MEDICATIONS. SOCIAL HISTORY: Heavy tobacco and alcohol use. REVIEW OF SYSTEMS: A 14-point review of systems were negative except what Is mentioned in history of present illness. PHYSICAL EXAMINATION: GENERAL: The patient is in no acute distress. VITAL SIGNS: Afebrile. Vital signs stable. HEENT: Head is normocephalic, atraumatic. CHEST: Clear to auscultation bilaterally. ABDOMEN: Soft, nontender, nondistended. NEUROMUSCULAR: He is alert, awake, and oriented x3. Concentrates very well. Cranial nerves II to XII grossly intact. Coordination is grossly intact. Speech is intact. There is tenderness over spinous process of thoracic spine between T9 to T12 area. There is tenderness of left thoracic paraspinal. There is tenderness around the left lower intercostal muscle and left 11 and 12th rib. There is tenderness of spinous process of lower lumbar spine with limited range of motion of lumbar spine secondary to pain. Gait is normal using no assisted device. IMPRESSION: Left lower rib cage pain could be secondary to intercostal muscle sprain or intercostal nerve impingement or thoracic radiculitis. RECOMMENDATIONS: 1. We will order MRI of thoracic spine to evaluate for thoracic disc herniation and evaluate for thoracic radiculitis. 2. Left rib healed x-ray to evaluate for any rib injury. 3. The patient to continue current medication regimen. 4. The patient to followup as an outpatient upon discharged. Harrison Adams MD
--- NOTE | 2018-05-19 15:34 | CP.PCM.APN ---
Subjective - Date & Time of Evaluation Date of Evaluation: 05/19/18 Time of Evaluation: 10:00 - Subjective Subjective: Pt. seen and examined, states left sided pain has improved, denied nausea , vomitting, RR easy and unlabored. Objective - Vital Signs/Intake and Output Vital Signs (last 24 hours): Temp Pulse Resp BP Pulse Ox 97.4 F L 55 L 18 123/62 96 05/19/18 06:00 05/19/18 06:00 05/19/18 06:00 05/19/18 06:00 05/19/18 06:00 Intake and Output: 05/19/18 05/19/18 06:59 18:59 Intake Total 1680 120 Balance 1680 120 - Medications Medications: Current Medications Aspirin (Ecotrin) 81 mg PO DAILY [facility] Last Admin: 05/19/18 09:11 Dose: 81 mg Atorvastatin Calcium (Lipitor) 40 mg PO DAILY [facility] Last Admin: 05/19/18 09:11 Dose: 40 mg Clopidogrel Bisulfate (Plavix) 75 mg PO QAM [facility] Last Admin: 05/19/18 09:11 Dose: 75 mg Ketorolac Tromethamine (Toradol) 30 mg IVP Q12 PRN PRN Reason: Pain, severe (8-10) Last Admin: 05/18/18 20:18 Dose: 30 mg Lidocaine HCl (Xylocaine 2%) 1 ea TOP BID [facility] Last Admin: 05/19/18 09:30 Dose: Not Given Oxycodone/Acetaminophen (Percocet 5/325 Mg Tab) 0.5 tab PO Q6H PRN PRN Reason: Pain, severe (8-10) Stop: 05/20/18 09:54 Last Admin: 05/18/18 21:53 Dose: 0.5 tab Pantoprazole Sodium (Protonix Ec Tab) 40 mg PO 0600 [facility] Last Admin: 05/19/18 04:59 Dose: 40 mg Polyethylene Glycol (Miralax) 17 gm PO BID [facility] Last Admin: 05/19/18 09:11 Dose: 17 gm - Labs Labs: 05/16/18 22:02 05/16/18 22:02 - Constitutional Appears: Well - Head Exam Head Exam: NORMOCEPHALIC - Eye Exam Eye Exam: Normal appearance - ENT Exam ENT Exam: Normal Exam - Neck Exam Neck Exam: Full ROM - Respiratory Exam Respiratory Exam: Clear to Ausculation Bilateral - Cardiovascular Exam Cardiovascular Exam: REGULAR RHYTHM, +S1, +S2 - GI/Abdominal Exam GI & Abdominal Exam: Soft, Normal Bowel Sounds - Rectal Exam Rectal Exam: Deferred - Exam Exam: Circumcision, NORMAL INSPECTION External exam: absent: Ecchymosis, Erythema, Lacerations, Lesions, NORMAL EXTERNAL EXAM, Swelling Speculum exam: absent: Cervical Discharge, Erythema, Foreign Body, Laceration, NORMAL SPECULUM EXAM, Tissue, Vaginal Bleeding, Vaginal Discharge Bimanual exam: absent: Adenexal Mass, Adnexal, Cervical Motion Tendernes, NORMAL BIMANUAL EXAM, Uterine Enlargement, Uterine Tenderness - Extremities Exam Extremities Exam: Full ROM - Back Exam Back Exam: absent: CVA tenderness (L), CVA tenderness (R), Full ROM, muscle spasm, NORMAL INSPECTION, paraspinal tenderness, rash noted, tenderness, vertebral tenderness - Neurological Exam Neurological Exam: Alert, Awake, Oriented x3 - Psychiatric Exam Psychiatric exam: Agitated, Anxious - Skin Skin Exam: Dry, Intact Assessment and Plan - Assessment and Plan (Free Text) Assessment: ITS Impressions Abdomen/Pelvis CT 05/16/18 21:52 IMPRESSION: No acute intra-abdominal findings Abdomen MRI with MRA 05/17/18 08:27 IMPRESSION: Negative study Chest CT 05/17/18 19:20 IMPRESSION: Question old fracture of the right posterior 12th rib. Biapical bullous emphysematous changes. Mild linear fibrosis in the right lower lobe. Ribs X-Ray 05/19/18 09:29 IMPRESSION: Negative study Assessment: Plan: ITS Impressions Abdomen/Pelvis CT 05/16/18 21:52 IMPRESSION: No acute intra-abdominal findings Abdomen MRI with MRA 05/17/18 08:27 IMPRESSION: Negative study Chest CT 05/17/18 19:20 IMPRESSION: Question old fracture of the right posterior 12th rib. Biapical bullous emphysematous changes. Mild linear fibrosis in the right lower lobe. Ribs X-Ray 05/19/18 09:29 IMPRESSION: Negative study Assessment: 58 y/o male, pmh including htn/hld/gerd/CAD/chronic abdominal pain, alcohol abuse, allergic to fluoroquinolones and flagyl, c/o lower abdominal pain x 2 days,admitted for pain r/t diverticulosis, with GI consulted, Plan: 1. LLQ pain likely r/t Diverticulosis, cont current pain meds. 2. Musculoskeletal pain MRI thoracic spine pending, Pain specialist consulted. Continue to discuss with PCP, consultants, plan to DC home tommorow, pending MRI results.
[2018-05-20] MEDS: Oxycodone/Acetaminophen 5/325 mg Tab PO PRN ×2 (02:10→08:22)
[2018-05-20] MEDS: Pantoprazole 40 mg EC Tab PO SCH (06:22)
[2018-05-20 08:50] VITALS: RESP 20
[2018-05-20] MEDS ORDERED: Oxycodone/Acetaminophen 2.5/325 mg Tab PO PRN (08:51)
[2018-05-20] MEDS: POLYETHYLENE GLYCOL 3350 17 GM/Dose PACKET PO SCH (09:30)
[2018-05-20] MEDS: Lidocaine 2% Jelly (30 ml) TOP SCH (09:30)
--- NOTE | 2018-05-20 10:58 | MRI ---
Date of service: 05/19/2018 PROCEDURE: MR THORACIC SPINE WITHOUT CONTRAST HISTORY: left sided abdominal pain COMPARISON: None available. TECHNIQUE: Multiecho multiplanar sequences were performed through the thoracic spine without the use of intravenous contrast. FINDINGS: ALIGNMENT: Normal thoracic spinal alignment. Normal thoracic kyphosis. VERTEBRA: Vertebral body height are preserved. MARROW: Marrow signal unremarkable. PARASPINAL SOFT TISSUES: Unremarkable. CORD: Unremarkable thoracic cord. No volume loss, signal abnormality or syrinx. DISCS: No disc herniation, spinal canal stenosis, or neuroforaminal narrowing. There is desiccation of the disc material throughout the thoracic spine. There is no significant disc bulge. There is only minimal loss of disc height OTHER FINDINGS: The report concurs with the preliminary [facility] report IMPRESSION: Unremarkable non-contrast enhanced MRI of the thoracic spine
--- NOTE | 2018-05-20 11:09 | PN ---
DATE: 05/19/2018 SUBJECTIVE: The patient is very anxious about his pain on the left side, seen by pain management Dr. Terry , seen by GI consult Dr. Verdugo. The patient otherwise seems stable, has no other complaint. PHYSICAL EXAMINATION: VITAL SIGNS: Temperature 97.4, heart rate is 55, blood pressure is 123/62 and saturation 97% on room air. HEAD AND NECK: Normal. No JVD. No thyromegaly. CHEST: Clear bilateral. CARDIAC: First sound and second sound normal. No murmur, rub or gallop. ABDOMEN: Soft and nontender. EXTREMITIES: No edema. NEUROLOGICAL: Normal. LABORATORY DATA: The patient had abdominal MRA, which was negative. Abdominal CT, pelvic and . ASSESSMENT AND PLAN: 1. Left-sided pain, could be radiculopathy, seen by pain management. MRI of thoracic spine has been ordered. Rib x-ray has been ordered. We will followup with them. 2. Rectal pain secondary to rectal prolapse continue lidocaine rectally p.r.n. 3. Coronary artery disease. 4. Hypercholesterolemia. 5. Tobacco addictions. Continue aspirin, Plavix and Lipitor. We will check the MRI results in the morning, probably if it will come back okay, we may discharge the patient home in morning depending on the result of the rib x-ray and MRI. Harrison Mccall MD
[2018-05-20 16:34] VITALS: BP 149/73; PULSE 82; TEMP 97.4; O2SAT 99
--- NOTE | 2018-05-22 03:23 | DS ---
CHIEF COMPLAINT: Patient admitted with left-sided pain. Patient has been admitted before for rectal pain and was very panicky about it and found to have a rectal prolapse. No tumor or anything. Patient was seen by Dr. Verdugo, had an MRI/MRA of the abdomen and it showed normal vascular inferior mesenteric, superior mesenteric and is stable. Patient was seen by Dr. Mcmullen for his left sided pain and rib x-ray shows old right rib fractures. Thoracic MRI, no pathology in it. Patient was discharged to be followed as outpatient with Dr. Mcmullen. PHYSICAL EXAMINATION VITAL SIGNS: On discharge, temperature 97.4, heart rate is 82, blood pressure 149/73, respiration 20, saturation 99%. HEENT: Head and neck exam normal. No JVD, no thyromegaly. CHEST: Clear bilateral. CARDIAC: First sound and second sound normal. No murmur, rub or gallop. ABDOMEN: Soft, nontender. EXTREMITIES: No edema. NEUROLOGIC: Normal. LABORATORY DATA: White count 7.9, hemoglobin 14.7, hematocrit 43.4, platelets 296. Sodium 140, potassium 4.4, chloride 105, bicarb 27, BUN 14, creatinine 0.7. Liver function test is normal, troponin is negative. DISCHARGE DIAGNOSES: 1. Left-sided abdominal pain, infra rib pain, possible subcostal nerves impingement or radiculopathy, follow up with Dr. Mcmullen. 2. Rectal pain, continue lidocaine. 3. Chronic back pain, continue Percocet p.r.n. Patient also had a history of alcohol abuse, advised not to. 4. Chronic anxiety, panic disorder. Patient given a small dose of Ativan p.r.n. 5. Coronary artery disease. 6. Hypercholesterolemia. Discharged. Follow up in the office within a week. Harrison Mccall MD
== END 2018-05-20 17:02 | disposition home or self-care (01) | DRG 552 ==
LOC: ED 21:17 → ERH 05-17 00:37 → 3RNO 05-17 01:07 → OBSVTOIN 05-19 16:58 → 3RNO 05-19 20:15
PROVIDERS: ADMIT Internal Medicine; ATTEND Internal Medicine
DX: M54.15 Radiculopathy, thoracolumbar region (principal); K57.30 Diverticulosis of large intestine without perforation or abscess without bleeding; I10 Essential (primary) hypertension; R27.0 Ataxia, unspecified; G62.9 Polyneuropathy, unspecified; D50.9 Iron deficiency anemia, unspecified; F41.9 Anxiety disorder, unspecified; F32.9 Major depressive disorder, single episode, unspecified; K29.70 Gastritis, unspecified, without bleeding; K29.80 Duodenitis without bleeding; K62.3 Rectal prolapse; I25.10 Atherosclerotic heart disease of native coronary artery without angina pectoris; F10.10 Alcohol abuse, uncomplicated; K59.00 Constipation, unspecified; E78.00 Pure hypercholesterolemia, unspecified; N40.0 Benign prostatic hyperplasia without lower urinary tract symptoms; K21.9 Gastro-esophageal reflux disease without esophagitis; F41.0 Panic disorder [episodic paroxysmal anxiety]; R10.32 Left lower quadrant pain; M54.5 Low back pain; Z79.02 Long term (current) use of antithrombotics/antiplatelets; Z79.82 Long term (current) use of aspirin; Z86.73 Personal history of transient ischemic attack (TIA), and cerebral infarction without residual deficits; Z87.891 Personal history of nicotine dependence; Z87.11 Personal history of peptic ulcer disease; Z95.5 Presence of coronary angioplasty implant and graft

== ENCOUNTER 2018-05-24 08:25 | Emergency (ER) | payer MEDICARE, OTHER ==
[2018-05-24 08:32] VITALS: BMI 22.9
[2018-05-24] MEDS ORDERED: Sodium Chloride 0.9% 1,000 ML IV STA (08:57)
[2018-05-24 09:27] LABS: BASO # 0.04 K/mm3 (0.0-2.0); BASO % 0.6 % (0.0-3.0); EOS # 0.3 (0.0-0.7); EOS % 4.4 % (1.5-5.0); HEMOGLOBIN 13.3 g/dL (14.0-18.0); LYMPH % 28.2 % (22.0-35.0); MEAN CELL VOLUME 96.1 fl (80.0-105.0); MEAN CORPUSCULAR HEMOGLOBIN 32.5 pg (25.0-35.0); MEAN CORPUSCULAR HGB CONC 33.8 g/dl (31.0-37.0); MEAN PLATELET VOLUME 9.6 fl (7.0-11.0); MONO # 0.5 (0.1-0.6); MONO % 6.4 % (1.0-6.0); RBC 4.09 10^6/uL (3.5-6.1); RED CELL DISTRIBUTION WIDTH 13.2 % (11.5-14.5); WHITE BLOOD COUNT 7.2 10^3/uL (4.5-11.0)
[2018-05-24 09:48] LABS: ALB/GLOB RATIO 1.4 (1.1-1.8); ALBUMIN 4.2 g/dL (3.0-4.8); ALT/SGPT 23 U/L (7-56); AST/SGOT 32 U/L (17-59); BLOOD UREA NITROGEN 11 mg/dL (7-21); CALCIUM 9.2 mg/dL (8.4-10.5); GFR NON-AFRICAN AMERICAN > 60; LIPASE 64 U/L (23-300)
--- NOTE | 2018-05-24 09:51 | RAD ---
Date of service: 05/24/2018 HISTORY: vomiting COMPARISON: 05/11/2018 TECHNIQUE: 1 view obtained. FINDINGS: LUNGS: No active pulmonary disease. PLEURA: No significant pleural effusion identified, no pneumothorax apparent. CARDIOVASCULAR: No aortic atherosclerotic calcification present. Normal cardiac size. No pulmonary vascular congestion. OSSEOUS STRUCTURES: No significant abnormalities. VISUALIZED UPPER ABDOMEN: Normal. OTHER FINDINGS: None. IMPRESSION: No active disease.
[2018-05-24 09:53] LABS: URINE BILIRUBIN NEGATIVE (NEGATIVE); URINE BLOOD NEGATIVE (NEGATIVE); URINE GLUCOSE (UA) NEGATIVE (NEGATIVE); URINE LEUKOCYTE ESTERASE NEGATIVE Leu/uL (NEGATIVE); URINE PROTEIN NEGATIVE mg/dL (<30 mg/dL); URINE UROBILINOGEN 0.2 E.U./dL (<1 E.U./dL)
[2018-05-24 09:57] LABS: URINE APPEARANCE CLEAR (CLEAR); URINE COLOR LIGHT YELLOW (YELLOW)
--- NOTE | 2018-05-24 10:31 | ED PDOC ---
Arrival/HPI - General Chief Complaint: GI Problem Time Seen by Provider: 05/24/18 08:35 Historian: Patient - History of Present Illness Narrative History of Present Illness (Text): 05/24/18 08:35 Anuel Whitt is a 58 year old male, with a past medical history of rectal prolapse, gastric ulcer, chronic back pain, alcohol abuse, panic disorder, coronary artery disease, COPD, hypertension, hyperlipidemia, CAD s/p 4 cardiac stents, and BPH, who presents to the emergency department complaining of vomiting since yesterday. Patient informs vomiting yesterday at 3 PM and today at 7 AM. Patient also informs of chronic abdominal pain. Patient informs taking protonix for gastric ulcers for 12 weeks. Patient also takes percocet for chronic abdominal pain. Patient denies any fevers, chills, headache, dizziness, chest pain, shortness of breath, dyspnea on exertion, cough, diaphoresis, diarrhea, dysuria, back pain, neck pain, or any other complaint. PMD: Dr. Mccall GI: Dr. 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) Other/Comment: NEUROPATHY - HEENT Hx HEENT Disorder: Yes (PT STATES HE HAS DECREASED PHERIPHERAL VISION SPECIALLY L EYE) - Renal Hx Renal Disorder: No - Endocrine/Metabolic Hx Endocrine Disorders: Yes Hx Hypothyroidism: Yes (PT DENIES) - Hematological/Oncological Hx Blood Disorders: Yes Hx Anemia: Yes (IRON DEFICIENCY ANEMIA) - Integumentary Hx Dermatological Disorder: Yes (TATTOOS) - Musculoskeletal/Rheumatological Hx Musculoskeletal Disorders: Yes (ATAXIA) Hx Falls: Yes Hx Fractures: Yes ((rib/sternum)) Hx Unsteady Gait: Yes - Gastrointestinal Hx Gastrointestinal Disorders: Yes (H/O RECTAL PROLAPSE,COLONIC MASS,) Hx Diverticulitis: Yes Hx Gastrointestinal Ulcer: Yes Hx Pancreatitis: (pt denies) Other/Comment: duoduenal ulcers,HEMORRHOIDS,GASTRITIS - Genitourinary/Gynecological Hx Genitourinary Disorders: Yes Hx Prostate Problems: Yes (BPH) - Psychiatric Hx Psychophysiologic Disorder: Yes (SMOKES CIGARETTES,DRINKS BEER EVERY NOW AND THEN,TRIED MARIJUANA,BENZO) Hx Anxiety: Yes Hx Depression: Yes Hx Substance Use: Yes (TRIED MARIJUANA DID NOT LIKE IT.BENZO) - Past Surgical History Past Surgical History: No Previous - Surgical History Hx Coronary Stent: Yes (x5) - Anesthesia Hx Anesthesia: No Hx Anesthesia Reactions: No Hx Malignant Hyperthermia: No - Suicidal Assessment Feels Threatened In Home Enviroment: No Family/Social History - Physician Review Nursing Documentation Reviewed: Yes Family/Social History: Unknown Family HX Smoking Status: Current Some Days Smoker Hx Alcohol Use: Yes (BEER EVERY NOW AND THEN) Hx Substance Use: Yes (TRIED MARIJUANA DID NOT LIKE IT.BENZO) Hx Substance Use Treatment: No Allergies/Home Meds Allergies/Adverse Reactions: Allergies ciprofloxacin Allergy (Severe, Verified 05/11/18 19:28) NUMBNESS levofloxacin [From Levaquin] Allergy (Verified 05/11/18 19:28) NUMBNESS metronidazole [From Flagyl] Allergy (Verified 05/11/18 19:28) SWELLING Home Medications: Home Meds Medication Instructions Recorded Confirmed Famotidine [Pepcid] 20 mg PO DAILY 03/07/18 05/11/18 Lansoprazole [Prevacid] 30 mg PO DAILY 03/07/18 05/11/18 diaZEpam [Valium] 5 mg PO PRN PRN 03/21/18 05/11/18 Oxycodone HCl/Acetaminophen 1 tab PO PRN PRN 03/25/18 05/11/18 [Oxycodone-Acetaminophen 5-325] Aspirin [Ecotrin] 81 mg PO DAILY 05/11/18 05/11/18 Review of Systems - Physician Review All systems were reviewed & negative as marked: Yes - Review of Systems Constitutional: absent: Fevers, Night Sweats Respiratory: absent: SOB, Cough Cardiovascular: absent: Chest Pain, WALSH Gastrointestinal: Abdominal Pain (chronic abdominal pain), Nausea, Vomiting. absent: Diarrhea Genitourinary Male: absent: Dysuria Musculoskeletal: absent: Back Pain, Neck Pain Neurological: absent: Headache, Dizziness Endocrine: absent: Diaphoresis Physical Exam Vital Signs Reviewed: Yes Vital Signs Temp Pulse Resp BP Pulse Ox 05/24/18 08:26 97.8 F 76 18 118/70 98 Temperature: Afebrile Blood Pressure: Normal Pulse: Regular Respiratory Rate: Normal Appearance: Positive for: Well-Appearing, Non-Toxic, Comfortable Pain Distress: None Mental Status: Positive for: Alert and Oriented X 3 - Systems Exam Head: Present: Atraumatic, Normocephalic Pupils: Present: PERRL Extroacular Muscles: Present: EOMI Conjunctiva: Present: Normal Mouth: Present: Moist Mucous Membranes Neck: Present: Normal Range of Motion Respiratory/Chest: Present: Clear to Auscultation, Good Air Exchange. No: Respiratory Distress, Accessory Muscle Use Cardiovascular: Present: Regular Rate and Rhythm, Normal S1, S2. No: Murmurs, Rub, Gallop Abdomen: Present: Normal Bowel Sounds. No: Tenderness, Distention, Peritoneal Signs, Rebound, Guarding Back: Present: Normal Inspection Upper Extremity: Present: Normal Inspection, NORMAL PULSES, Neurovascularly Intact. No: Cyanosis, Edema Lower Extremity: Present: Normal Inspection, NORMAL PULSES, Neurovascularly Intact. No: Edema Neurological: Present: GCS=15, CN II-XII Intact, Speech Normal, Motor Func Grossly Intact, Normal Sensory Function Skin: Present: Warm, Dry, Normal Color. No: Rashes Psychiatric: Present: Alert, Oriented x 3, Normal Insight, Normal Concentration Medical Decision Making ED Course and Treatment: 05/24/18 08:35 Impression: Patient is a 58 year old male who presents to the emergency department complaining of vomiting since yesterday. Patient informs vomiting once yesterday at 3 PM and once at 7 AM. Patient also notes chronic abdominal pain. Exam unremarkable. Plan: -- EKG -- Labs -- Chest X-Ray -- IV Fluids -- Zofran -- Urinalysis -- Reassess and disposition Prior Visits: Notes and results from previous visits were reviewed. Progress Notes: 05/24/18 11:[address] Mccall, who agrees with discharging patient and follow up at in the office. 05/24/18 11:57 Reassessed patient, no vomiting in the emergency department. Expressed importance of follow up with Dr. Mccall. Patient discharged home. - Lab Interpretations Lab Results: Total Bilirubin 0.4 mg/dL (0.2-1.3) 05/24/18 09:20 AST 32 U/L (17-59) 05/24/18 09:20 ALT 23 U/L (7-56) 05/24/18 09:20 Alkaline Phosphatase 43 U/L (38-126) 05/24/18 09:20 Total Protein 7.3 g/dL (5.8-8.3) 05/24/18 09:20 Albumin 4.2 g/dL (3.0-4.8) 05/24/18 09:20 Globulin 3.1 gm/dL 05/24/18 09:20 Albumin/Globulin Ratio 1.4 (1.1-1.8) 05/24/18 09:20 Lipase 64 U/L (23-300) 05/24/18 09:20 Urine Color Light yellow (YELLOW) 05/24/18 08:35 Urine Appearance Clear (CLEAR) 05/24/18 08:35 Urine pH 6.0 (4.7-8.0) 05/24/18 08:35 Ur Specific [place] <= 1.005 (1.005-1.035) 05/24/18 08:35 Urine Protein Negative mg/dL (<30 mg/dL) 05/24/18 08:35 Urine Glucose (UA) Negative mg/dL (NEGATIVE) 05/24/18 08:35 Urine Ketones Negative mg/dL (NEGATIVE) 05/24/18 08:35 Urine Blood Negative (NEGATIVE) 05/24/18 08:35 Urine Nitrate Negative (NEGATIVE) 05/24/18 08:35 Urine Bilirubin Negative (NEGATIVE) 05/24/18 08:35 Urine Urobilinogen 0.2 E.U./dL (<1 E.U./dL) 05/24/18 08:35 Ur Leukocyte Esterase Negative Augie/uL (NEGATIVE) 05/24/18 08:35 - RAD Interpretation Narrative RAD Interpretations (Text): 05/24/18 09:47 Reviewed Chest X-Ray, shows: IMPRESSION: No active disease. Radiology Orders: 05/24/18 08:57 CHEST PORTABLE [RAD] Stat Timber Sprinkler: Radiologist - EKG Interpretation EKG Interpretation (Text): 05/24/18 08:45 Reviewed EKG, shows: NSR 75 BPM. Normal intervals. No ST wave depressions or elevations. Interpreted by ED Physician: Yes Type: 12 lead EKG - Medication Orders Current Medication Orders: Discontinued Medications Sodium Chloride (Sodium Chloride 0.9%) 1,000 mls @ 1,000 mls/hr IV .Q1H STA Stop: 05/24/18 09:56 Last Admin: 05/24/18 09:23 Dose: 1,000 mls/hr eMAR Start Stop Document 05/24/18 09:23 MA (Rec: 05/24/18 09:24 [place] [facility] [id number] Intravenous Solution Start Date 05/24/18 Start Time 09:23 Ondansetron HCl (Zofran Inj) 4 mg IVP STAT STA Stop: 05/24/18 09:33 Last Admin: 05/24/18 09:38 Dose: 4 mg IVP Administration Document 05/24/18 09:38 MA (Rec: 05/24/18 09:38 [place] [id number] Charges for Administration # of IVP Administrations 1 - Scribe Statement The provider has reviewed the documentation as recorded by the Scribe Chad Nj All medical record entries made by the Scribe were at my direction and personally dictated by me. I have reviewed the chart and agree that the record accurately reflects my personal performance of the history, physical exam, medical decision making, and the department course for this patient. I have also personally directed, reviewed, and agree with the discharge instructions and disposition. Disposition/Present on Arrival - Present on Arrival Any Indicators Present on Arrival: No History of DVT/PE: No History of Uncontrolled Diabetes: No Urinary Catheter: No History of Decub. Ulcer: No History Surgical Site Infection Following: None - Disposition Have Diagnosis and Disposition been Completed?: Yes Diagnosis: Vomiting, Abdominal pain Disposition: HOME/ ROUTINE Disposition Time: 12:00 Patient Plan: Discharge Condition: GOOD Discharge Instructions (ExitCare): Clear Liquid Diet, Acute Abdomen (Belly Pain), Nausea and Vomiting, Adult (DC) Referrals: Harrison Mccall MD [Primary Care Provider] - Follow up with primary Forms: [employer] (Albanian)
[2018-05-24 11:38] VITALS: RESP 16; O2SAT 97
[2018-05-24 12:09] VITALS: BP 122/76; PULSE 82; TEMP 98.2
--- NOTE | 2018-05-24 17:45 | CARD ---
APPROVED REPORT Date of service: 05/24/2018 EKG Measurement Heart [id number] <Conclusion> Normal sinus rhythm Normal ECG
== END 2018-05-24 12:08 | disposition home or self-care (01) ==
LOC: ED 08:25
DX: R11.10 Vomiting, unspecified (principal); R10.9 Unspecified abdominal pain; I25.10 Atherosclerotic heart disease of native coronary artery without angina pectoris; I10 Essential (primary) hypertension; E78.5 Hyperlipidemia, unspecified; N40.0 Benign prostatic hyperplasia without lower urinary tract symptoms; K62.3 Rectal prolapse; Z95.5 Presence of coronary angioplasty implant and graft; F17.210 Nicotine dependence, cigarettes, uncomplicated
CPT/HCPCS: 71045; 80053; 81003; 83690; 83735; 84484; 85025; 93005; 96374; 99283; J2405; J7030

== ENCOUNTER 2018-05-28 16:07 | Inpatient (IN) | payer MEDICARE, OTHER ==
[2018-05-28 16:07] VITALS: BMI 22.9
--- NOTE | 2018-05-28 16:22 | ED PDOC ---
Arrival/HPI - General Chief Complaint: Anxiety Time Seen by Provider: 05/28/18 16:11 Historian: Patient - History of Present Illness Narrative History of Present Illness (Text): 05/28/18 16:25 58 year old male, with past medical history of rectal prolapse, gastric ulcer, chronic back pain, alcohol abuse, panic disorder, coronary artery disease, COPD, hypertension, hyperlipidemia, CAD s/p 4 cardiac stents, and BPH, presents to emergency department for complaints of stomach pain daily for the past year and half along with constant anxiety over eating. Patient reports negative studies over the past several years. He states that he was given valium and percocet over the past years and states that it worsened his symptoms and caused dizziness and so he stopped taking it. Patient admits to drinking 4 beers prior to coming here today. Patient denies any recent fall, trauma, drug use, or constipation. Patient denies any fevers, chills, headache, chest pain, shortness of breath, cough, nausea, vomiting, diarrhea, back pain, neck pain, or any other complaints. 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) Other/Comment: NEUROPATHY - HEENT Hx HEENT Disorder: Yes (PT STATES HE HAS DECREASED PHERIPHERAL VISION SPECIALLY L EYE) - Renal Hx Renal Disorder: No - Endocrine/Metabolic Hx Endocrine Disorders: Yes Hx Hypothyroidism: Yes (PT DENIES) - Hematological/Oncological Hx Blood Disorders: Yes Hx Anemia: Yes (IRON DEFICIENCY ANEMIA) - Integumentary Hx Dermatological Disorder: Yes (TATTOOS) - Musculoskeletal/Rheumatological Hx Musculoskeletal Disorders: Yes (ATAXIA) Hx Falls: Yes Hx Fractures: Yes ((rib/sternum)) Hx Unsteady Gait: Yes - Gastrointestinal Hx Gastrointestinal Disorders: Yes (H/O RECTAL PROLAPSE,COLONIC MASS,) Hx Diverticulitis: Yes Hx Gastrointestinal Ulcer: Yes Hx Pancreatitis: (pt denies) Other/Comment: duoduenal ulcers,HEMORRHOIDS,GASTRITIS - Genitourinary/Gynecological Hx Genitourinary Disorders: Yes Hx Prostate Problems: Yes (BPH) - Psychiatric Hx Psychophysiologic Disorder: Yes (SMOKES CIGARETTES,DRINKS BEER EVERY NOW AND THEN,TRIED MARIJUANA,BENZO) Hx Anxiety: Yes Hx Depression: Yes Hx Substance Use: Yes (TRIED MARIJUANA DID NOT LIKE IT.BENZO) - Past Surgical History Past Surgical History: No Previous - Surgical History Hx Coronary Stent: Yes (x5) - Anesthesia Hx Anesthesia: No Hx Anesthesia Reactions: No Hx Malignant Hyperthermia: No - Suicidal Assessment Feels Threatened In Home Enviroment: No Family/Social History - Physician Review Nursing Documentation Reviewed: Yes Family/Social History: Unknown Family HX Smoking Status: Current Some Days Smoker Hx Alcohol Use: Yes (BEER EVERY NOW AND THEN) Hx Substance Use: Yes (TRIED MARIJUANA DID NOT LIKE IT.BENZO) Hx Substance Use Treatment: No Allergies/Home Meds Allergies/Adverse Reactions: Allergies ciprofloxacin Allergy (Severe, Verified 05/28/18 16:21) NUMBNESS levofloxacin [From Levaquin] Allergy (Verified 05/28/18 16:21) NUMBNESS metronidazole [From Flagyl] Allergy (Verified 05/28/18 16:21) SWELLING Home Medications: Home Meds Medication Instructions Recorded Confirmed Famotidine [Pepcid] 20 mg PO DAILY 03/07/18 05/28/18 Lansoprazole [Prevacid] 30 mg PO DAILY 03/07/18 05/28/18 diaZEpam [Valium] 5 mg PO PRN PRN 03/21/18 05/28/18 Oxycodone HCl/Acetaminophen 1 tab PO PRN PRN 03/25/18 05/28/18 [Oxycodone-Acetaminophen 5-325] Aspirin [Ecotrin] 81 mg PO DAILY 05/11/18 05/28/18 Review of Systems - Physician Review All systems were reviewed & negative as marked: Yes - Review of Systems Constitutional: absent: Weight Change, Fevers ENT: absent: Hearing Changes Respiratory: absent: SOB, Cough Cardiovascular: absent: Chest Pain, Palpitations, Edema Gastrointestinal: Abdominal Pain (1 1/2 years ). absent: Stool Changes, Constipation, Diarrhea, Nausea, Vomiting Genitourinary Male: absent: Dysuria, Frequency, Urinary Output Changes Musculoskeletal: absent: Arthralgias, Back Pain, Neck Pain Skin: absent: Rash Neurological: absent: Headache Endocrine: absent: Diaphoresis Hemo/Lymphatic: absent: Adenopathy Psychiatric: absent: Anxiety Physical Exam Vital Signs Reviewed: Yes Vital Signs Temp Pulse Resp BP Pulse Ox 05/28/18 16:09 98.2 F 90 20 101/64 97 Temperature: Afebrile Blood Pressure: Normal Pulse: Regular Respiratory Rate: Normal Appearance: Positive for: Well-Appearing, Non-Toxic, Comfortable Pain Distress: None Mental Status: Positive for: Alert and Oriented X 3 - Systems Exam Head: Present: Atraumatic, Normocephalic Pupils: Present: PERRL Extroacular Muscles: Present: EOMI Conjunctiva: Present: Normal Ears: Present: Normal, NORMAL TM. No: Erythema Mouth: Present: Moist Mucous Membranes Pharnyx: Present: Normal. No: ERYTHEMA, EXUDATE Nose (External): Present: Atraumatic Nose (Internal): Present: Normal Inspection Neck: Present: Normal Range of Motion. No: Meningeal Signs, MIDLINE TENDERNESS Respiratory/Chest: Present: Clear to Auscultation, Good Air Exchange. No: Respiratory Distress, Accessory Muscle Use Cardiovascular: Present: Regular Rate and Rhythm, Normal S1, S2. No: Murmurs Abdomen: Present: Normal Bowel Sounds. No: Tenderness, Distention, Peritoneal Signs, Rebound, Guarding, Hernias Back: Present: Normal Inspection, Other (left flank pain (past year and a half)). No: CVA Tenderness, Midline Tenderness Upper Extremity: Present: Normal Inspection, NORMAL PULSES, Neurovascularly Intact. No: Cyanosis, Edema, Tenderness, Swelling, Erythema Lower Extremity: Present: Normal Inspection, NORMAL PULSES, Neurovascularly Intact. No: Edema, Tenderness Neurological: Present: GCS=15, CN II-XII Intact, Speech Normal Skin: Present: Warm, Dry, Normal Color. No: Rashes Psychiatric: Present: Alert, Oriented x 3, Normal Insight, Normal Concentration Medical Decision Making ED Course and Treatment: 05/28/18 16:38 Impression: 58 year old male presents to emergency department with stomach pain for the past year and a half and constant anxiety. No chest pain or shortness of breath. Pt notes long time abdominal pain / flank pain but abdomen is non-ttp on exam. Flank pain x1.5 years, has had 4 EGD and colonscopies during that time without appreciable findings. Pt denies any dark or bloody stool. Likely chronic pain w/ anxiety. Plan: -- EKG -- Labs -- Urinalysis -- Reassess and disposition Prior Visits: Notes and results from previous visits were reviewed. Progress Notes: 05/28/18 16:39 EKG shows NSR at 87 BPM with no STEMI. Interpreted by ED physician. 05/28/18 17:21 labs, imaging unremarkable pt denies any CP or SOB repeat abd exam non-ttp no current flank pain Patient is medically clear for psych admission or transfer. 05/28/18 20:[address] Covington pending PES dispo for likely transfer - Scribe Statement The provider has reviewed the documentation as recorded by the Scribe Ronit Little All medical record entries made by the Scribe were at my direction and personally dictated by me. I have reviewed the chart and agree that the record accurately reflects my personal performance of the history, physical exam, medical decision making, and the department course for this patient. I have also personally directed, reviewed, and agree with the discharge instructions and disposition. Disposition/Present on Arrival - Present on Arrival Any Indicators Present on Arrival: No History of DVT/PE: No History of Uncontrolled Diabetes: No Urinary Catheter: No History of Decub. Ulcer: No History Surgical Site Infection Following: None - Disposition Have Diagnosis and Disposition been Completed?: Yes Diagnosis: Anxiety Disposition Time: 17:22 Patient Problems: Current Active Problems Problem Status Onset Anxiety Acute Condition: STABLE Referrals: Harrison Mccall MD [Primary Care Provider] - Follow up with primary Forms: [employer] (Uzbek)
[2018-05-28 17:03] LABS: BASO # 0.04 K/mm3 (0.0-2.0); BASO % 0.4 % (0.0-3.0); EOS # 0.5 (0.0-0.7); EOS % 4.7 % (1.5-5.0); HEMOGLOBIN 13.6 g/dL (14.0-18.0); LYMPH # 2.6 (1.2-3.4); MEAN CELL VOLUME 95.2 fl (80.0-105.0); MEAN CORPUSCULAR HEMOGLOBIN 32.5 pg (25.0-35.0); MEAN CORPUSCULAR HGB CONC 34.1 g/dl (31.0-37.0); MEAN PLATELET VOLUME 9.8 fl (7.0-11.0); MONO # 0.7 (0.1-0.6); MONO % 6.7 % (1.0-6.0); RBC 4.19 10^6/uL (3.5-6.1); RED CELL DISTRIBUTION WIDTH 13.2 % (11.5-14.5)
[2018-05-28 17:08] LABS: ALB/GLOB RATIO 1.4 (1.1-1.8); ALT/SGPT 19 U/L (7-56); AST/SGOT 34 U/L (17-59); BLOOD UREA NITROGEN 11 mg/dL (7-21); CALCIUM 9.4 mg/dL (8.4-10.5); GFR NON-AFRICAN AMERICAN > 60; LIPASE 67 U/L (23-300)
[2018-05-28 17:09] LABS: ACETAMINOPHEN < 10.0 ug/ml (10.0-20.0); SALICYLATE < 1 mg/dL (2.0-20.0)
[2018-05-28 17:17] LABS: URINE BILIRUBIN NEGATIVE (NEGATIVE); URINE BLOOD NEGATIVE (NEGATIVE); URINE GLUCOSE (UA) NEGATIVE (NEGATIVE); URINE LEUKOCYTE ESTERASE NEGATIVE Leu/uL (NEGATIVE); URINE PROTEIN NEGATIVE mg/dL (<30 mg/dL); URINE UROBILINOGEN 0.2 E.U./dL (<1 E.U./dL)
[2018-05-28 17:19] LABS: URINE APPEARANCE CLEAR (CLEAR); URINE COLOR YELLOW (YELLOW)
--- NOTE | 2018-05-28 21:36 | ED PDOC ---
Physical Exam Vital Signs Reviewed: Yes Vital Signs Temp Pulse Resp BP Pulse Ox 05/28/18 20:33 70 17 102/55 L 95 05/28/18 18:59 72 18 92/50 L 93 L 05/28/18 16:09 98.2 F 90 20 101/64 97 05/28/18 16:07 98.2 F 70 20 101/64 97 Temperature: Afebrile Blood Pressure: Normal Pulse: Regular Respiratory Rate: Normal Appearance: Positive for: Well-Appearing, Non-Toxic, Comfortable Pain Distress: None Mental Status: Positive for: Alert and Oriented X 3 Medical Decision Making ED Course and Treatment: 05/28/18 21:35: Case endorsed to me by Dr. Lopez. Patient is medically cleared. Awaiting psychiatric admission. Patient was evaluated by PES. Patient slated for admission. Patient awaiting bed availability. Patient with diagnosis of severe anxiety 05/29/18 02:09: Chest X-ray read and interpreted by me shows no acute process. 05/29/18 07:00 Case endorsed to /pending bed availability/transfer - Lab Interpretations Lab Results: Total Bilirubin 0.5 mg/dL (0.2-1.3) 05/28/18 16:40 AST 34 U/L (17-59) 05/28/18 16:40 ALT 19 U/L (7-56) 05/28/18 16:40 Alkaline Phosphatase 42 U/L (38-126) 05/28/18 16:40 Total Protein 6.9 g/dL (5.8-8.3) 05/28/18 16:40 Albumin 4.0 g/dL (3.0-4.8) 05/28/18 16:40 Globulin 2.8 gm/dL 05/28/18 16:40 Albumin/Globulin Ratio 1.4 (1.1-1.8) 05/28/18 16:40 Lipase 67 U/L (23-300) 05/28/18 16:40 Urine Color Yellow (YELLOW) 05/28/18 16:50 Urine Appearance Clear (CLEAR) 05/28/18 16:50 Urine pH 6.0 (4.7-8.0) 05/28/18 16:50 Ur Specific [place] <= 1.005 (1.005-1.035) 05/28/18 16:50 Urine Protein Negative mg/dL (<30 mg/dL) 05/28/18 16:50 Urine Glucose (UA) Negative mg/dL (NEGATIVE) 05/28/18 16:50 Urine Ketones Negative mg/dL (NEGATIVE) 05/28/18 16:50 Urine Blood Negative (NEGATIVE) 05/28/18 16:50 Urine Nitrate Negative (NEGATIVE) 05/28/18 16:50 Urine Bilirubin Negative (NEGATIVE) 05/28/18 16:50 Urine Urobilinogen 0.2 E.U./dL (<1 E.U./dL) 05/28/18 16:50 Ur Leukocyte Esterase Negative Augie/uL (NEGATIVE) 05/28/18 16:50 - Scribe Statement The provider has reviewed the documentation as recorded by the Darcyibe Bridgette Conroy Provider Scribe Attestation: All medical record entries made by the Scribe were at my direction and personally dictated by me. I have reviewed the chart and agree that the record accurately reflects my personal performance of the history, physical exam, medical decision making, and the department course for this patient. I have also personally directed, reviewed, and agree with the discharge instructions and disposition. Disposition/Present on Arrival - Present on Arrival Any Indicators Present on Arrival: No History of DVT/PE: No History of Uncontrolled Diabetes: No Urinary Catheter: No History of Decub. Ulcer: No History Surgical Site Infection Following: None - Disposition Have Diagnosis and Disposition been Completed?: No Diagnosis: Anxiety Disposition Time: 07:00 Patient Problems: Current Active Problems Problem Status Onset Anxiety Acute Condition: STABLE Referrals: Harrison Mccall MD [Primary Care Provider] - Follow up with primary Forms: [email or web address] (Welsh)
[2018-05-29 01:13] LABS: BARBITURATES, UR NEGATIVE (NEGATIVE); BENZODIAZEPINES, UR POSITIVE (NEGATIVE); OPIATES, UR NEGATIVE (NEGATIVE); PHENCYCLIDINE, UR NEGATIVE (NEGATIVE)
--- NOTE | 2018-05-29 08:40 | ED PDOC ---
Physical Exam Vital Signs Temp Pulse Resp BP Pulse Ox 05/29/18 07:13 98.5 F 77 18 116/68 94 L 05/29/18 05:52 98.4 F 70 20 102/60 97 05/29/18 03:15 68 17 109/63 98 05/29/18 01:17 72 17 105/56 L 98 05/28/18 20:33 70 17 102/55 L 95 05/28/18 18:59 72 18 92/50 L 93 L 05/28/18 16:09 98.2 F 90 20 101/64 97 05/28/18 16:07 98.2 F 70 20 101/64 97 Medical Decision Making ED Course and Treatment: 05/29/18 07:00 Case endorse to me by Dr. Boyd. Pending PES disposition for likely transfer. 05/29/18 13:04 pt now accepted to psych. - Lab Interpretations Lab Results: Total Bilirubin 0.5 mg/dL (0.2-1.3) 05/28/18 16:40 AST 34 U/L (17-59) 05/28/18 16:40 ALT 19 U/L (7-56) 05/28/18 16:40 Alkaline Phosphatase 42 U/L (38-126) 05/28/18 16:40 Total Protein 6.9 g/dL (5.8-8.3) 05/28/18 16:40 Albumin 4.0 g/dL (3.0-4.8) 05/28/18 16:40 Globulin 2.8 gm/dL 05/28/18 16:40 Albumin/Globulin Ratio 1.4 (1.1-1.8) 05/28/18 16:40 Lipase 67 U/L (23-300) 05/28/18 16:40 Urine Color Yellow (YELLOW) 05/28/18 16:50 Urine Appearance Clear (CLEAR) 05/28/18 16:50 Urine pH 6.0 (4.7-8.0) 05/28/18 16:50 Ur Specific [place] <= 1.005 (1.005-1.035) 05/28/18 16:50 Urine Protein Negative mg/dL (<30 mg/dL) 05/28/18 16:50 Urine Glucose (UA) Negative mg/dL (NEGATIVE) 05/28/18 16:50 Urine Ketones Negative mg/dL (NEGATIVE) 05/28/18 16:50 Urine Blood Negative (NEGATIVE) 05/28/18 16:50 Urine Nitrate Negative (NEGATIVE) 05/28/18 16:50 Urine Bilirubin Negative (NEGATIVE) 05/28/18 16:50 Urine Urobilinogen 0.2 E.U./dL (<1 E.U./dL) 05/28/18 16:50 Ur Leukocyte Esterase Negative Augie/uL (NEGATIVE) 05/28/18 16:50 - RAD Interpretation Radiology Orders: 05/29/18 00:32 CHEST PORTABLE [RAD] Stat - Scribe Statement The provider has reviewed the documentation as recorded by the Scribe Latoya Deshpande Provider Scribe Attestation: All medical record entries made by the Scribe were at my direction and personally dictated by me. I have reviewed the chart and agree that the record accurately reflects my personal performance of the history, physical exam, medical decision making, and the department course for this patient. I have also personally directed, reviewed, and agree with the discharge instructions and disposition. Disposition/Present on Arrival - Present on Arrival Any Indicators Present on Arrival: No History of DVT/PE: No History of Uncontrolled Diabetes: No Urinary Catheter: No History of Decub. Ulcer: No History Surgical Site Infection Following: None - Disposition Have Diagnosis and Disposition been Completed?: Yes Diagnosis: Anxiety Disposition: HOSPITALIZED Disposition Time: 07:00 Patient Problems: Current Active Problems Problem Status Onset Anxiety Acute Condition: STABLE Referrals: Harrison Mccall MD [Primary Care Provider] - Follow up with primary Forms: [employer] (Brazilian)
--- NOTE | 2018-05-29 08:46 | RAD ---
HISTORY: medical clearance COMPARISON: Chest x-ray 05/24/18 TECHNIQUE: Chest, one view. FINDINGS: LUNGS: No focal consolidation. Please note that chest x-ray has limited sensitivity for the detection of pulmonary masses. PLEURA: No significant pleural effusion identified. No definite pneumothorax . CARDIOVASCULAR: Heart size appears within normal limits. Atherosclerotic calcifications of the aorta. OSSEOUS STRUCTURES: No acute osseous abnormality identified. VISUALIZED UPPER ABDOMEN: Unremarkable. OTHER FINDINGS: None. IMPRESSION: No focal consolidation.
--- NOTE | 2018-05-29 10:15 | CARD ---
APPROVED REPORT Date of service: 05/28/2018 EKG Measurement Heart [id number] <Conclusion> Normal sinus rhythm Normal ECG
[2018-05-29 15:10] VITALS: O2SAT 97
[2018-05-29] MEDS ORDERED: Alum-Mag Hydrox-Simethicone Susp (30 mL) PO PRN (17:19)
[2018-05-29] MEDS ORDERED: Magnesium Hydroxide Susp 30 ml UD PO PRN (17:20)
[2018-05-29] MEDS ORDERED: Oxycodone/Acetaminophen 5/325 mg Tab PO PRN (17:46)
--- NOTE | 2018-05-29 18:17 | PCM.BM ---
<Kevin Hurley - Last Filed: 05/29/18 18:02> Treatment Plan Problems - Problems identified on initial assessmt Anxiety Date Initiated: 05/29/18 Time Initiated: 16:00 Assessment reference: NA Status: Active Ineffective Coping Date Initiated: 05/29/18 Time Initiated: 16:00 Assessment reference: NA Status: Active Priority: 2 Treatment assets and liabiliti Patient Assests: cooperative, insightful, self-reliant, ADL independent, good support system, negotiates basic needs, cognitively intact, good interpersonal skills Patient Liabilities: physical pain, substance abuse, medical problems - Milieu Protocol Maintain good personal hygiene: daily Encourage regular showers, daily Remind patient to perform daily oral care, every shift Assist patient to perform ADL's Conduct patient checks and document Observation sheet: Q15 minutes Maintain personal safety: every shift Educate patient to report safety concerns to staff, every shift Monitor environment for contraband/sharps Medication safety: Monitor for expected outcome, potential side effects: every shift, Assess barriers to learning: every shift, Assess readiness for medication education: every shift Family Contact Family involvement: Family/SO is involved Family contact: Patient agrees to contact - Goals for Treatment Patient goals for treatment: less anxiety Discharge/Continuing Care - Education Needs Education Needs: Patient Medication, Patient Diagnosis/Disease Process, Patient Coping Skills, Patient Anger Management skills, Patient Placement options, Pa tient Community resources, Patient Activities of Daily Living, Patient Pain, Patient Nutrition, Patient Uses of Medical Equipment, Patient Health Practices/Safety, Patient Personal Hygiene/Grooming, Patient Aftercare Safety Plan - Discharge Discharge Criteria: Tolerates medication w/o severe side effects <Nishi Lozano - Last Filed: 05/31/18 08:36> - Diagnosis (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 Status: Acute Interventions: 05/31/18 08:36 Psychoeducation Psychopharmacology/adjustment of medications as needed/ monitoring possible side effects Evaluate pt on daily basis Discussion of importance of being compliant with medications and follow up appointments Suicide and homicide risk assessment and prevention, coping strategies, safety plan Reduction of symptoms Relaxation techniques and breathing exercises Improve functional status Family involvement Cognitive behavioral therapy as outpatient (2) Somatic delusion Status: Acute Interventions: needs to be ruled out 05/31/18 08:37 Psychoeducation/psychotherapy Psychopharmacology/adjustment of medications as needed/ monitoring possible side effects Evaluate pt on daily basis Compliance with medications and follow up appointments Reduction of symptoms Improve functional status Cognitive behavioral therapy Family involvement <Melissa Heath - Last Filed: 06/01/18 16:08> Family Contact Family involvement: Famliy/SO not involved
[2018-05-30 08:31] LABS: GLUCOSE,FASTING 106 mg/dL (65-110); HDL CHOLESTEROL 43 mg/dL (29-60)
[2018-05-30 08:42] LABS: LDL CHOLESTEROL 98 mg/dL (0-129)
[2018-05-30 08:47] LABS: FREE T4 0.89 ng/dL (0.78-2.19)
[2018-05-30] MEDS ORDERED: oxyCODONE 5 mg Immediate Release Tab PO PRN (09:13)
[2018-05-30] MEDS: Multivitamin With Minerals Tab PO SCH (14:28)
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
[2018-05-31] MEDS: Pantoprazole 40 mg EC Tab PO SCH (07:51)
[2018-05-31] MEDS: Multivitamin With Minerals Tab PO SCH (08:50)
--- NOTE | 2018-05-31 13:14 | PCM.PYCHPN ---
Psychiatric Progress Note - Psychiatric Progress Note Patient seen today, length of contact: 30 minutes Patient Chief Complaint: "here we go again..." Problems Identified/Issues Discussed: symptoms, treatment goals, past history, medications Medical Problems: See HPI Diagnostic Results: 05/28/18 16:40 05/28/18 16:40 Lab Results 05/30/18 08:10: RPR Nonreactive 05/30/18 08:10: Free T4 0.89, TSH 3rd Generation 0.93 05/30/18 08:10: Fasting Glucose 106, Triglycerides 94, Cholesterol 152, LDL Cholesterol Direct 98, HDL Cholesterol 43 05/29/18 00:34: Urine Opiates Screen Negative, Urine Methadone Screen Negative, Ur Barbiturates Screen Negative, Ur Phencyclidine Scrn Negative, Ur Amphetamines Screen Negative, U Benzodiazepines Scrn Positive H, U Oth Cocaine Metabols Negative, U Cannabinoids Screen Negative 05/28/18 16:50: Urine Color Yellow, Urine Appearance Clear, Urine pH 6.0, Ur Specific [place] <= 1.005, Urine Protein Negative, Urine Glucose (UA) Negative, Urine Ketones Negative, Urine Blood Negative, Urine Nitrate Negative, Urine Bilirubin Negative, Urine Urobilinogen 0.2, Ur Leukocyte Esterase Negative 05/28/18 16:40: Alcohol, Quantitative 114 H 05/28/18 16:40: Salicylates < 1 L, Acetaminophen < 10.0 L 05/28/18 16:40: Sodium 137, Potassium 3.6, Chloride 100, Carbon Dioxide 26, Anion Gap 15, BUN 11, Creatinine 0.8, Est GFR ( Amer) > 60, Est GFR (Non- Af Amer) > 60, Random Glucose 81, Calcium 9.4, Magnesium 1.6 L, Total Bilirubin 0.5, AST 34, ALT 19, Alkaline Phosphatase 42, Total Protein 6.9, Albumin 4.0, Globulin 2.8, Albumin/Globulin Ratio 1.4, Lipase 67 05/28/18 16:40: WBC 10.0 D, RBC 4.19, Hgb 13.6 L, Hct 39.9 L, MCV 95.2, MCH 32.5, MCHC 34.1, RDW 13.2, Plt Count 275, MPV 9.8, Neut % (Auto) 62.2, Lymph % (Auto) 26.0, [place] % (Auto) 6.7 H, Eos % (Auto) 4.7, Baso % (Auto) 0.4, Lymph # (Auto) 2.6, [place] # (Auto) 0.7 H, Eos # (Auto) 0.5, Baso # (Auto) 0.04, Absolute Neuts (auto) 6.25 Vital Signs Temp Pulse Resp BP Pulse Ox 05/31/18 07:00 98 F 58 L 18 103/65 05/30/18 16:00 71 104/68 05/30/18 07:24 97.1 F L 75 20 92/59 L 05/29/18 16:21 97.9 F 75 16 105/63 05/29/18 15:08 98.7 F 73 18 107/58 L 97 05/29/18 13:21 98.1 F 74 18 120/73 99 05/29/18 09:00 72 18 114/61 94 L 05/29/18 07:13 98.5 F 77 18 116/68 94 L 05/29/18 05:52 98.4 F 70 20 102/60 97 05/29/18 03:15 68 17 109/63 98 05/29/18 01:17 72 17 105/56 L 98 05/28/18 20:33 70 17 102/55 L 95 05/28/18 18:59 72 18 92/50 L 93 L 05/28/18 16:09 98.2 F 90 20 101/64 97 05/28/18 16:07 98.2 F 70 20 101/64 97 DSM 5 Symptoms Update: In short pt is a 58yr old retired male, one previous psychiatric admission in 2016 here in [place] for sudden urges of a desire to kill his dog, pt was diagnosed with Cognitive disorder NOS, polysubstance abuse by , pt has a lot of medical issues including but not limited to Gastric Ulcers, Diverticulitis, CAD (4 stents), Rectal Prolapse, Orthostatic Hypotension, Chronic Back Pain, Iron Deficiency, Hemorrhoid, Hyperlipidemia, Superficial Thrombophlebitis on left arm, was referred for admission by his PMD for severe anxiety, pt was not able to function, was unable to complete daily task due to being overly anxious. pt was seen at the treatment team meeting, pt presented to be calm, at the same time very circumstantial and tangential, was concentrating only on his medical issues, pt was repeating over and over again about sigmoidoscopy, colonoscopy. pt had multiple endoscopy procedures in the past when was asked the reason, pt started to laugh, "here we go again...", then was rolling his eyes, saying that it would be better if he would make a tattoo on the left side of his abdomen in order for other physicians not to ask this question again. pt then said that he was suffering from pain in his left side of abdomen. pt was keep going back to the PMD and GI team feeling that something is "very serious going on..." pt was not specifying what it might be but "all I know I had a pain..." besides that pt c/o "dizziness, I saw , I call him ", when was asked the reason, pt said that neurologist was prescribing neurontin only and "never find anything wrong with me." pt presented to be grandiose, has own ideas what medications might be helpful to him. It takes forever to give an answer for simple yes-no question. pt's goal is "to stop my mind from racing, I cannot sleep, I constantly thinking about my medical issues..", pt reported to feel "irritable and angry...", denied any thoughts of harming self or others. this clinical writer will resume diazepam PRN 2mg with the plan to wean off. so far pt tolerates trazodone well, willing to increase dose. As per staff patient is compliant with her medications, unit rules and regulations, minimally participating in unit activities. DSM 5 Diagnosis: r/o somatization disorder NOS r/o somatic delusions r/o anxiety due to general medical condition Rule out mood disorder due to general medical condition alcohol abuse/dependence Medication Change: Yes (trazodone increased) Medical Record Reviewed: Yes Consults ordered or reviewed: pt was cleared by medical team in ED will consider to call PMD in case of any physical complaints. So far patient did not ask for pain medication, did not express any concerns about his medical issues. Mental Status Examination - Cognitive Function Orientation: Person, Place, Situation, Time Memory: Intact Attention: Poor Concentration: Poor Association: Loose Fund of Knowledge: WNL - Mood Mood: Depressed ("I am irritable, everything gets into my nerves"), Anxious - Affect Affect: Flat - Formal Thought Process Formal Thought Process: Delusions (r/o somatic delusions) - Suicidal Ideation Suicidal Ideation: No - Homicidal Ideation Homicidal Ideation: No Goal/Treatment Plan - Goal/Treatment Plan Need for Continued Stay: Remain at risks for inpatient hospitalization, Severe depression anxiety, Discharge may exacerbated symptoms, Severe functional impairment Progress Toward Problem(s) and Goals/Treatment Plan: Milieu/structure/supportive therapy SW consultation for discharge plan and social issues Family involvement Follow up on labs Will monitor closely Pt was educated about risk/benefits and alternatives of medications, coping strategies (safety plan, suicide prevention), relapse prevention, importance of follow up with psychiatrist and therapist, stay away from drugs/alcohol/smoking med list confirmed diazepam 5mg po daily, d/c, 2mg po bid in case of withdrawals trazodone 100mg po hs for depression ocycodone 5/325 up to medical team kaitlin d/c Estimated Date of D/C: 06/03/18
--- NOTE | 2018-05-31 20:43 | CON ---
DATE: 05/30/2018 HISTORY OF PRESENT ILLNESS: The patient was admitted to psychiatry floor by psychiatric team because of patient keeps coming having severe anxiety and medical problems and keeps coming to the medical floor on multiple admissions for the same problems. The patient was evaluating to be admitted to psychiatry floor and to control his extreme anxiety. The patient also has medical problems of coronary artery disease, chronic disc disease, rectal prolapse, insomnia, history of alcohol abuse and for that reason, medical consultation is requested to manage his medical conditions. PAST MEDICAL HISTORY: As I did mention, he does have coronary artery disease with multiple stents placed over 10 years, hypercholesterolemia, history of chronic anxiety, history of rectal prolapse, multiple colonoscopies, CAT scans done, history of disc disease, seen by Pain Management, and multiple MRI of spine. FAMILY HISTORY: Noncontributory. SOCIAL HISTORY: He lives with his . He is very anxious. He still smokes and does not want to quit now, but he was a smoker. He does drink occasionally, sometimes, last time was two weeks ago, binge drinking, 15 beers, otherwise stopped which is very hard this. Otherwise, he does not drink on a daily basis, he did stop drinking for more than a year or more. Also history of cerebellar atrophy and possible alcohol related gastritis. ALLERGIES: CIPROFLOXACIN, LEVOFLOXACIN, AND FLAGYL. REVIEW OF SYSTEMS: No chest pain. No short of breath. No new nausea. No vomiting. He does always complain of left-sided abdominal pain and rectal pain. Otherwise, no new anxiety, difficult sleeping, or insomnia. Otherwise, the rest of the review of systems is negative. PHYSICAL EXAMINATION: GENERAL: This consultation was done on 05/30/2018. VITAL SIGNS: His temperature 98.7, heart rate 73, blood pressure 107/58, respiration 18, and saturating 97% on room air. HEAD AND NECK: Normal. No JVD. No thyromegaly. CHEST: Clear bilaterally. CARDIAC: First sound and second sound normal. No murmur, rub, or gallop. ABDOMEN: Soft and nontender. EXTREMITIES: No edema. NEUROLOGIC: Normal. LABORATORY DATA: White count 10, hemoglobin 13.6, hematocrit 39.9, and platelets 275. Chemistry; sodium 137, potassium 3.6, chloride 100, bicarb 26, BUN 11, creatinine 0.8, and magnesium low 1.6. Liver function test is normal. LDL is 98 and HDL 43. Lipase is normal. TSH is normal. IMPRESSION AND PLAN: 1. Generalized anxiety disorder with multiple somatic complaints. We will follow up with Dr. Almodovar. May benefit from antianxiety medication. We will see how she currently trazodone. He did request to be on Valium. He has been taking pieces for a couple of years. He has been seen by Dr. Rose before. We will talk to Dr. Almodovar about that. 2. Coronary artery disease, hypercholesterolemia, chronic alcohol use, nicotine addiction, and also chronic back pain. Continue current therapy. The patient currently on trazodone 50 mg, folic acid, Lipitor 40 mg, NicoDerm CQ one patch, oxycodone p.r.n. every 8 hours, Pepcid 40 mg, Plavix 75 mg, Protonix 40 mg, multivitamin, Tylenol No. 3, and vitamin B1. Continue current therapy. Harrison Mccall MD
[2018-06-01] MEDS: Pantoprazole 40 mg EC Tab PO SCH (06:21)
[2018-06-01 07:16] VITALS: BP 103/61; PULSE 64; RESP 20; TEMP 97.7
[2018-06-01] MEDS: Multivitamin With Minerals Tab PO SCH (08:59)
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
--- NOTE | 2018-06-01 23:11 | PN ---
DATE: 05/31/2018 SUBJECTIVE: The patient is comfortable, in no distress. He is walking around. Seen by psychiatrist. PHYSICAL EXAMINATION: VITAL SIGNS: Temperature 98, heart rate 58, blood pressure 109/79, and respirations 18. HEAD AND NECK: Normal. No JVD. No thyromegaly. CHEST: Clear bilaterally. CARDIAC: First sound and second sound normal. No murmur, rub, or gallop. ABDOMEN: Soft and nontender. EXTREMITIES: No edema. NEUROLOGIC: Normal. LABORATORY STUDIES: White count 10, hemoglobin 13.6, hematocrit 39.9, and platelets 275. Chemistry; sodium 137, potassium 3.6, chloride 100, bicarb 26, BUN 11, and creatinine 0.8. Liver function test is normal. TSH is normal. IMPRESSION AND PLAN: 1. Chronic anxiety with mild insomnia. We will follow up with his psychiatrist on that. 2. Coronary artery disease. 3. Hypercholesterolemia. 4. Tobacco addiction. The patient is advised to quit tobacco. 5. Chronic back pain. 6. Chronic rectal prolapse. Continue current therapy. The patient is advised to take magnesium p.o. at home, will do that when discharge was given. We will continue current therapy. Harrison Mccall MD
== END 2018-06-01 15:02 | disposition home or self-care (01) | DRG 884 ==
LOC: ED 16:07 → ERH 05-29 12:46 → PSYC 05-29 15:27
PROVIDERS: ADMIT Psychiatry & Neurology Psychiatry; ATTEND Psychiatry & Neurology Psychiatry
DX: F06.4 Anxiety disorder due to known physiological condition (principal); F22 Delusional disorders; F45.0 Somatization disorder; I25.10 Atherosclerotic heart disease of native coronary artery without angina pectoris; I10 Essential (primary) hypertension; E78.00 Pure hypercholesterolemia, unspecified; F10.10 Alcohol abuse, uncomplicated; N40.0 Benign prostatic hyperplasia without lower urinary tract symptoms; J44.9 Chronic obstructive pulmonary disease, unspecified; F17.210 Nicotine dependence, cigarettes, uncomplicated; E78.5 Hyperlipidemia, unspecified; G47.00 Insomnia, unspecified; K62.3 Rectal prolapse; G89.29 Other chronic pain; M54.9 Dorsalgia, unspecified; Y90.5 Blood alcohol level of 100-119 mg/100 ml; Z79.82 Long term (current) use of aspirin; Z95.5 Presence of coronary angioplasty implant and graft

== ENCOUNTER 2018-06-06 19:35 | Emergency (ER) | payer MEDICARE, OTHER ==
[2018-06-06 19:36] VITALS: BMI 22.9
[2018-06-06 19:48] VITALS: BP 137/73; PULSE 75; RESP 18; TEMP 98.3; O2SAT 97
[2018-06-06] MEDS ORDERED: Atrop/Hyosc/Scopal/PB Elixir (120 ml) PO STA (20:18)
[2018-06-06] MEDS ORDERED: Sodium Chloride 0.9% 1,000 ML IV STA (20:49)
[2018-06-06 20:56] LABS: BASO # 0.02 K/mm3 (0.0-2.0); BASO % 0.2 % (0.0-3.0); EOS # 0.2 (0.0-0.7); EOS % 2.4 % (1.5-5.0); HEMOGLOBIN 12.5 g/dL (14.0-18.0); LYMPH # 1.5 (1.2-3.4); LYMPH % 17.8 % (22.0-35.0); MEAN CELL VOLUME 95.8 fl (80.0-105.0); MEAN CORPUSCULAR HEMOGLOBIN 32.5 pg (25.0-35.0); MEAN CORPUSCULAR HGB CONC 33.9 g/dl (31.0-37.0); MEAN PLATELET VOLUME 9.8 fl (7.0-11.0); MONO # 0.7 (0.1-0.6); MONO % 8.6 % (1.0-6.0); RBC 3.85 10^6/uL (3.5-6.1); RED CELL DISTRIBUTION WIDTH 13.7 % (11.5-14.5); WHITE BLOOD COUNT 8.7 10^3/uL (4.5-11.0)
--- NOTE | 2018-06-06 20:56 | ED PDOC ---
Arrival/HPI - General Chief Complaint: Abdominal Pain Time Seen by Provider: 06/06/18 19:36 Historian: Patient - History of Present Illness Narrative History of Present Illness (Text): 06/06/18 20:53 58 year old male, with past medical history of rectal prolapse, gastric ulcer, chronic back pain, alcohol abuse, panic disorder, coronary artery disease, COPD, hypertension, hyperlipidemia, CAD s/p 4 cardiac stents, and BPH, presents to emergency department for complaints of stomach pain daily for the past year and half. Patient states he was diagnosed with gastric ulcers and recent rectal prolapse by Dr Verdugo. Patient states he has tried all kinds of GI medications, and they do not seem to be working. Patient states he would deal with the pain if he just knew "what was going on". Patient informs today he had one episode of vomiting, which he states is not part of his usual GI symptoms. Patient informs of some dizziness today that he states is usual with his symptoms. Patient denies any fevers, headache, chest pain, shortness of breath, cough, back pain, neck pain, or any other complaints. 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) Other/Comment: NEUROPATHY - HEENT Hx HEENT Disorder: Yes (PT STATES HE HAS DECREASED PHERIPHERAL VISION SPECIALLY L EYE) - Renal Hx Renal Disorder: No - Endocrine/Metabolic Hx Endocrine Disorders: Yes Hx Hypothyroidism: Yes (PT DENIES) - Hematological/Oncological Hx Blood Disorders: Yes Hx Anemia: Yes (IRON DEFICIENCY ANEMIA) - Integumentary Hx Dermatological Disorder: Yes (TATTOOS) - Musculoskeletal/Rheumatological Hx Musculoskeletal Disorders: Yes (ATAXIA) Hx Falls: Yes Hx Fractures: Yes ((rib/sternum)) Hx Unsteady Gait: Yes - Gastrointestinal Hx Gastrointestinal Disorders: Yes (H/O RECTAL PROLAPSE,COLONIC MASS,) Hx Diverticulitis: Yes Hx Pancreatitis: (pt denies) Other/Comment: duoduenal ulcers,HEMORRHOIDS,GASTRITIS - Genitourinary/Gynecological Hx Genitourinary Disorders: Yes Hx Prostate Problems: Yes (BPH) - Psychiatric Hx Anxiety: Yes Hx Substance Use: Yes - Past Surgical History Past Surgical History: No Previous - Surgical History Hx Coronary Stent: Yes (x5) - Anesthesia Hx Anesthesia: No Hx Anesthesia Reactions: No Hx Malignant Hyperthermia: No - Suicidal Assessment Feels Threatened In Home Enviroment: No Family/Social History - Physician Review Nursing Documentation Reviewed: Yes Family/Social History: No Known Family HX Smoking Status: Current Some Days Smoker Hx Alcohol Use: Yes Hx Substance Use: Yes Hx Substance Use Treatment: No Allergies/Home Meds Allergies/Adverse Reactions: Allergies ciprofloxacin Allergy (Severe, Verified 06/06/18 19:44) NUMBNESS levofloxacin [From Levaquin] Allergy (Verified 06/06/18 19:44) NUMBNESS metronidazole [From Flagyl] Allergy (Verified 06/06/18 19:44) SWELLING Quinolones Allergy (Verified 06/06/18 19:44) ANAPHYLAXIS Review of Systems - Physician Review All systems were reviewed & negative as marked: Yes - Review of Systems Constitutional: absent: Fevers Respiratory: absent: SOB, Cough Cardiovascular: absent: Chest Pain Gastrointestinal: Abdominal Pain, Vomiting Musculoskeletal: absent: Back Pain, Neck Pain Neurological: Dizziness. absent: Headache Physical Exam Vital Signs Reviewed: Yes Vital Signs Temp Pulse Resp BP Pulse Ox 06/06/18 19:45 98.3 F 75 18 137/73 97 Temperature: Afebrile Blood Pressure: Normal Pulse: Regular Respiratory Rate: Normal Appearance: Positive for: Well-Appearing, Non-Toxic, Comfortable Pain Distress: None Mental Status: Positive for: Alert and Oriented X 3 - Systems Exam Head: Present: Atraumatic, Normocephalic Pupils: Present: PERRL Extroacular Muscles: Present: EOMI Conjunctiva: Present: Normal Mouth: Present: Moist Mucous Membranes Neck: Present: Normal Range of Motion Respiratory/Chest: Present: Clear to Auscultation, Good Air Exchange. No: Respiratory Distress, Accessory Muscle Use Cardiovascular: Present: Regular Rate and Rhythm, Normal S1, S2. No: Murmurs Abdomen: No: Tenderness, Distention, Peritoneal Signs Back: Present: Normal Inspection Upper Extremity: Present: Normal Inspection. No: Cyanosis, Edema Lower Extremity: Present: Normal Inspection. No: Edema Neurological: Present: GCS=15, CN II-XII Intact, Speech Normal Skin: Present: Warm, Dry, Normal Color. No: Rashes Psychiatric: Present: Alert, Oriented x 3, Normal Insight, Normal Concentration Medical Decision Making ED Course and Treatment: 06/06/18 21:04 Impression: 58 year old male presents with chronic abdominal pain, secondary to gastric ulcers. Plan: -- VBG -- CMP, Lipase, Mg, Trop -- CBC, Platelets -- Chest X-ray -- -- Pepcid -- Carafate -- Urinalysis -- Reassess and disposition Prior Visits: Notes and results from previous visits were reviewed. Progress Notes: 06/06/18 22:00 Patient was reassessed and understands there are no acute issues today, and that he should follow up with Dr Verdugo. Patient demonstrates understanding and informs he will follow up. Opportunity was given for any questions which were answered. - RAD Interpretation Radiology Orders: 06/06/18 20:17 CHEST PORTABLE [RAD] Stat - Medication Orders Current Medication Orders: Sodium Chloride (Sodium Chloride 0.9%) 1,000 mls @ 999 mls/hr IV .Q1H1M STA Stop: 06/06/18 21:49 Discontinued Medications Belladonna/Phenobarbital ( Elixir) 5 ml PO STAT STA Stop: 06/06/18 20:19 Last Admin: 06/06/18 20:41 Dose: Not Given Non-Admin Reason: Patient Refused Famotidine (Pepcid) 20 mg IVP STAT STA Stop: 06/06/18 20:19 Last Admin: 06/06/18 20:42 Dose: Not Given Non-Admin Reason: Patient Refused - Scribe Statement The provider has reviewed the documentation as recorded by the Devyn Escobedo Provider Scribe Attestation: All medical record entries made by the Scribe were at my direction and p ersonally dictated by me. I have reviewed the chart and agree that the record accurately reflects my personal performance of the history, physical exam, medical decision making, and the department course for this patient. I have also personally directed, reviewed, and agree with the discharge instructions and disposition. Disposition/Present on Arrival - Present on Arrival Any Indicators Present on Arrival: No History of DVT/PE: No History of Uncontrolled Diabetes: No Urinary Catheter: No History of Decub. Ulcer: No History Surgical Site Infection Following: None - Disposition Have Diagnosis and Disposition been Completed?: No Diagnosis: Gastritis Disposition: HOME/ ROUTINE Disposition Time: 22:20 Patient Plan: Discharge Discharge Instructions (ExitCare): Gastritis (DC) Print Language: KYRGYZ Additional Instructions: All medical record entries made by the Scribe were at my direction and personally dictated by me. I have reviewed the chart and agree that the record accurately reflects my personal performance of the history, physical exam, medical decision making, and the department course for this patient. I have also personally directed, reviewed, and agree with the discharge instructions and disposition. Please follow up with Dr. Verdugo as soon as possible Referrals: Judith Verdugo MD [Medical Doctor] - Follow up with primary Forms: [employer] [facility] (Bangladeshi)
[2018-06-06 21:01] LABS: INR 1.01; PARTIAL THROMBOPLASTIN TIME 26.3 Seconds (26.9-38.3); PROTHROMBIN TIME 11.2 SECONDS (9.4-12.5)
[2018-06-06 21:14] LABS: ALB/GLOB RATIO 1.3 (1.1-1.8); ALBUMIN 3.8 g/dL (3.0-4.8); ALT/SGPT 15 U/L (7-56); AST/SGOT 34 U/L (17-59); BLOOD UREA NITROGEN 11 mg/dL (7-21); CALCIUM 8.9 mg/dL (8.4-10.5); GFR NON-AFRICAN AMERICAN > 60; LIPASE 87 U/L (23-300); TROPONIN I < 0.01 ng/mL
[2018-06-06 21:15] LABS: VENOUS BLOOD GAS BASE EXCESS 1.7 mmol/L (0.0-2.0); VENOUS BLOOD GAS PO2 203 mm/Hg (30-55); VENOUS BLOOD PH 7.41 (7.32-7.43)
[2018-06-06 21:47] LABS: URINE BILIRUBIN NEGATIVE (NEGATIVE); URINE BLOOD NEGATIVE (NEGATIVE); URINE GLUCOSE (UA) NEGATIVE (NEGATIVE); URINE LEUKOCYTE ESTERASE NEGATIVE Leu/uL (NEGATIVE); URINE PROTEIN NEGATIVE mg/dL (<30 mg/dL); URINE UROBILINOGEN 0.2 E.U./dL (<1 E.U./dL)
[2018-06-06 21:49] LABS: URINE APPEARANCE CLEAR (CLEAR); URINE COLOR YELLOW (YELLOW)
--- NOTE | 2018-06-07 08:52 | RAD ---
Date of service: 06/06/2018 HISTORY: abdominal pain COMPARISON: 05/29/2018. FINDINGS: LUNGS: The lungs are well inflated and clear. PLEURA: No pleural effusions or pneumothorax. CARDIOVASCULAR: The heart is normal in size. No aortic atherosclerotic calcifications present. OSSEOUS STRUCTURES: Within normal limits for the patient's age. VISUALIZED UPPER ABDOMEN: Normal. OTHER FINDINGS: None. IMPRESSION: No active pulmonary disease.
== END 2018-06-06 22:36 | disposition home or self-care (01) ==
LOC: ED 19:35
DX: K29.70 Gastritis, unspecified, without bleeding (principal); K62.3 Rectal prolapse; I25.10 Atherosclerotic heart disease of native coronary artery without angina pectoris; I10 Essential (primary) hypertension; E78.5 Hyperlipidemia, unspecified; Z95.5 Presence of coronary angioplasty implant and graft; F17.210 Nicotine dependence, cigarettes, uncomplicated
CPT/HCPCS: 71045; 80053; 81003; 82803; 83690; 83735; 84484; 85025; 85610; 85730; 99283; J7030

== ENCOUNTER 2018-06-12 15:19 | Emergency (ER) | payer MEDICARE, OTHER ==
[2018-06-12 15:19] VITALS: BMI 22.9
[2018-06-12 16:11] VITALS: BP 156/87; PULSE 92; RESP 16; TEMP 98.5; O2SAT 100
--- NOTE | 2018-06-12 16:37 | ED PDOC ---
Arrival/HPI - General Chief Complaint: Back Pain Time Seen by Provider: 06/12/18 15:55 - History of Present Illness Narrative History of Present Illness (Text): 06/12/18 16:41 Patient is a 58 year old male with past medical history of CAD s/p mu ltiple stents, CVA w/ no residual deficits, multiple non-bleeding duodenal and jejunal ulcers, esophagitis/gastritis, hiatal hernia, diverticulosis, internal hemorrhoids, hyperlipidemia, orthostatic hypotension, depression and anxiety presenting with chief complaint of bilateral flank pain which began two hours prior. Patient denies any trauma, heavy lifting, or strenuous exercise. Denies fevers, chills, chest pain, shortness of breath, diarrhea, dysuria. 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) Other/Comment: NEUROPATHY - HEENT Hx HEENT Disorder: Yes (PT STATES HE HAS DECREASED PHERIPHERAL VISION SPECIALLY L EYE) - Renal Hx Renal Disorder: No - Endocrine/Metabolic Hx Endocrine Disorders: Yes Hx Hypothyroidism: Yes (PT DENIES) - Hematological/Oncological Hx Blood Disorders: Yes Hx Anemia: Yes (IRON DEFICIENCY ANEMIA) - Integumentary Hx Dermatological Disorder: Yes (TATTOOS) - Musculoskeletal/Rheumatological Hx Musculoskeletal Disorders: Yes (ATAXIA) Hx Falls: Yes Hx Fractures: Yes ((rib/sternum)) Hx Unsteady Gait: Yes - Gastrointestinal Hx Gastrointestinal Disorders: Yes (H/O RECTAL PROLAPSE,COLONIC MASS,) Hx Diverticulitis: Yes Hx Pancreatitis: (pt denies) Other/Comment: duoduenal ulcers,HEMORRHOIDS,GASTRITIS - Genitourinary/Gynecological Hx Genitourinary Disorders: Yes Hx Prostate Problems: Yes (BPH) - Psychiatric Hx Anxiety: Yes Hx Substance Use: Yes - Past Surgical History Past Surgical History: No Previous - Surgical History Hx Coronary Stent: Yes (x5) - Anesthesia Hx Anesthesia: No Hx Anesthesia Reactions: No Hx Malignant Hyperthermia: No - Suicidal Assessment Feels Threatened In Home Enviroment: No Family/Social History - Physician Review Nursing Documentation Reviewed: Yes Family/Social History: No Known Family HX Smoking Status: Current Some Days Smoker Hx Alcohol Use: Yes Hx Substance Use: Yes Hx Substance Use Treatment: No Allergies/Home Meds Allergies/Adverse Reactions: Allergies ciprofloxacin Allergy (Severe, Verified 06/12/18 15:59) NUMBNESS levofloxacin [From Levaquin] Allergy (Verified 06/12/18 15:59) NUMBNESS metronidazole [From Flagyl] Allergy (Verified 06/12/18 15:59) SWELLING Quinolones Allergy (Verified 06/12/18 15:59) ANAPHYLAXIS Review of Systems - Physician Review All systems were reviewed & negative as marked: Yes - Review of Systems Respiratory: Normal Cardiovascular: Normal Gastrointestinal: Abdominal Pain. absent: Constipation, Diarrhea, Nausea, Vomiting Genitourinary Male: Normal Physical Exam Vital Signs Reviewed: Yes Vital Signs Temp Pulse Resp BP Pulse Ox 06/12/18 15:59 98.5 F 92 H 16 156/87 H 100 06/12/18 15:30 98.2 F 88 18 157/86 H 99 Temperature: Afebrile Blood Pressure: Hypertensive Pulse: Regular Respiratory Rate: Normal Appearance: Positive for: Well-Appearing, Comfortable Pain Distress: None Mental Status: Positive for: Alert and Oriented X 3 - Systems Exam Head: Present: Atraumatic, Normocephalic Pupils: Present: PERRL Extroacular Muscles: Present: EOMI Conjunctiva: Present: Normal Mouth: Present: Moist Mucous Membranes Respiratory/Chest: Present: Clear to Auscultation, Good Air Exchange. No: Respiratory Distress, Accessory Muscle Use Cardiovascular: Present: Regular Rate and Rhythm, Normal S1, S2 Abdomen: Present: Normal Bowel Sounds. No: Tenderness, Distention Lower Extremity: Present: Normal Inspection. No: Edema Neurological: Present: GCS=15, CN II-XII Intact, Speech Normal Skin: Present: Warm, Dry, Normal Color Psychiatric: Present: Alert, Oriented x 3 Medical Decision Making ED Course and Treatment: 06/12/18 16:45 Impression: 58 year old male with bilateral flank pain Plan: - Reassess and disposition Prior Visits: Notes and results from previous visits were reviewed. Progress Notes: 06/12/18 16:49 Review of previous patient records reveals extensive workup for patient's current symptoms and that they have been ongoing for the past two year. Spoke with Dr. Mccall regarding patient condition. Patient to be discharged with further outpatient management as per Dr. Mccall's recommendations. Patient hemodynamically stable and in no acute distress. Patient agrees with plan of management Disposition/Present on Arrival - Present on Arrival Any Indicators Present on Arrival: No History of DVT/PE: No History of Uncontrolled Diabetes: No Urinary Catheter: No History of Decub. Ulcer: No History Surgical Site Infection Following: None - Disposition Have Diagnosis and Disposition been Completed?: Yes Diagnosis: Abdominal pain Disposition: HOME/ ROUTINE Disposition Time: 16:53 Condition: STABLE Additional Instructions: Follow up with your primary medical doctor within one week Resume your home medications as prescribed Return to ED if symptoms persist or worsen Referrals: Harrison Mccall MD [Primary Care Provider] - Follow up with primary Forms: [employer] (Moroccan)
== END 2018-06-12 17:33 | disposition home or self-care (01) ==
LOC: ED 15:19
DX: R10.9 Unspecified abdominal pain (principal); E78.5 Hyperlipidemia, unspecified; I25.10 Atherosclerotic heart disease of native coronary artery without angina pectoris; I10 Essential (primary) hypertension; Z86.73 Personal history of transient ischemic attack (TIA), and cerebral infarction without residual deficits; F17.210 Nicotine dependence, cigarettes, uncomplicated

== ENCOUNTER 2018-06-12 23:45 | Observation (INO) | payer MEDICARE, OTHER ==
--- NOTE | 2018-06-13 00:22 | ED PDOC ---
Arrival/HPI - General Chief Complaint: Back Pain Time Seen by Provider: 06/13/18 00:00 Historian: Patient - History of Present Illness Narrative History of Present Illness (Text): 06/13/18 00:15 Anuel Whitt is a 58 year old male, whose past medical history includes COPD, hypertension, hyperlipidemia, CAD s/p multiple cardiac stents, gastric ulcer, renal cyst, BPH, and alcohol abuse, who presents to the emergency department complaining of bilateral flank pain. Patient states he has been experiencing bilateral flank pain, worse on the left, since 14:00 yesterday. Patient states he was seen in the ED yesterday for similar complaint and discharged home. Patient states pain continued and notified his PMD, who advised him to the return to the ED for further evaluation. Patient denies any fever, chills, chest pain, shortness of breath, nausea, vomiting, diarrhea, urinary symptoms, neck pain, headache, dizziness, or any other complaints. PMD: Dr. 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) Other/Comment: NEUROPATHY - HEENT Hx HEENT Disorder: Yes (PT STATES HE HAS DECREASED PHERIPHERAL VISION SPECIALLY L EYE) - Renal Hx Renal Disorder: No - Endocrine/Metabolic Hx Endocrine Disorders: Yes Hx Hypothyroidism: Yes (PT DENIES) - Hematological/Oncological Hx Blood Disorders: Yes Hx Anemia: Yes (IRON DEFICIENCY ANEMIA) - Integumentary Hx Dermatological Disorder: Yes (TATTOOS) - Musculoskeletal/Rheumatological Hx Musculoskeletal Disorders: Yes (ATAXIA) Hx Falls: Yes Hx Fractures: Yes ((rib/sternum)) Hx Unsteady Gait: Yes - Gastrointestinal Hx Gastrointestinal Disorders: Yes (H/O RECTAL PROLAPSE,COLONIC MASS,) Hx Diverticulitis: Yes Hx Pancreatitis: (pt denies) Other/Comment: duoduenal ulcers,HEMORRHOIDS,GASTRITIS - Genitourinary/Gynecological Hx Genitourinary Disorders: Yes Hx Prostate Problems: Yes (BPH) - Psychiatric Hx Anxiety: Yes Hx Substance Use: Yes - Past Surgical History Past Surgical History: No Previous - Surgical History Hx Coronary Stent: Yes (x5) - Anesthesia Hx Anesthesia: No Hx Anesthesia Reactions: No Hx Malignant Hyperthermia: No - Suicidal Assessment Feels Threatened In Home Enviroment: No Family/Social History - Physician Review Nursing Documentation Reviewed: Yes Family/Social History: Unknown Family HX Smoking Status: Current Some Days Smoker Hx Alcohol Use: Yes Hx Substance Use: Yes Hx Substance Use Treatment: No Allergies/Home Meds Allergies/Adverse Reactions: Allergies ciprofloxacin Allergy (Severe, Verified 06/12/18 15:59) NUMBNESS levofloxacin [From Levaquin] Allergy (Verified 06/12/18 15:59) NUMBNESS metronidazole [From Flagyl] Allergy (Verified 06/12/18 15:59) SWELLING Quinolones Allergy (Verified 06/12/18 15:59) ANAPHYLAXIS Review of Systems - Physician Review All systems were reviewed & negative as marked: Yes - Review of Systems Constitutional: Normal. absent: Fevers Eyes: Normal ENT: Normal Respiratory: Normal. absent: SOB, Cough Cardiovascular: Normal. absent: Chest Pain Gastrointestinal: Abdominal Pain. absent: Diarrhea, Nausea, Vomiting Genitourinary Male: Normal. absent: Dysuria, Frequency, Hematuria, Urinary Output Changes Musculoskeletal: Back Pain. absent: Neck Pain Skin: Normal. absent: Rash Neurological: Normal. absent: Headache, Dizziness Endocrine: Normal Hemo/Lymphatic: Normal Psychiatric: Normal Physical Exam Vital Signs Reviewed: Yes Temperature: Afebrile Blood Pressure: Normal Pulse: Regular Respiratory Rate: Normal Appearance: Positive for: Well-Appearing, Non-Toxic, Comfortable Pain Distress: None Mental Status: Positive for: Alert and Oriented X 3 - Systems Exam Head: Present: Atraumatic, Normocephalic Pupils: Present: PERRL Extroacular Muscles: Present: EOMI Conjunctiva: Present: Normal Mouth: Present: Moist Mucous Membranes Neck: Present: Normal Range of Motion Respiratory/Chest: Present: Clear to Auscultation, Good Air Exchange. No: Respiratory Distress, Accessory Muscle Use Cardiovascular: Present: Regular Rate and Rhythm, Normal S1, S2. No: Murmurs Abdomen: No: Tenderness, Distention, Peritoneal Signs Back: Present: CVA Tenderness (Left flank tenderness) Upper Extremity: Present: Normal Inspection. No: Cyanosis, Edema Lower Extremity: Present: Normal Inspection. No: Edema Neurological: Present: GCS=15, CN II-XII Intact, Speech Normal Skin: Present: Warm, Dry, Normal Color. No: Rashes Psychiatric: Present: Alert, Oriented x 3, Normal Insight, Normal Concentration Medical Decision Making ED Course and Treatment: 06/13/18 00:15 Impression: 58 year old male complaining of bilateral flank pain, greater on the left. Plan: -- CT Abdomen and Pelvis w/o contrast -- Labs -- Urinalysis -- IV fluids -- Toradol -- Reassess and disposition Prior Visits: Notes and results from previous visits were reviewed. Progress Notes: 06/13/18 02:20 CT Abdomen and Pelvis: Uncomplicated colonic diverticulosis. Mild prostatomegaly. Prostatic calcifications. Fluid-filled distended stomach. Mild thickening of the proximal small bowel loops. Left renal cyst, unchanged. The visualized lung bases are unremarkable. Normal unenhanced liver. Normal gallbladder and extrahepatic biliary system. Normal unenhanced spleen. Normal pancreas. Normal bilateral adrenal glands. Normal size of the right kidney. There is no right renal mass. There are no right renal calculi. There is no right hydronephrosis. Normal visualized right ureter. Normal size of the left kidney. There is no left renal mass. There are no left renal calculi. There is no left hydronephrosis. Normal visualized left ureter. The appendix is visualized and appears normal. There is no demonstrated peritoneal fluid. Normal abdominal aorta. Normal inferior vena cava. Normal retroperitoneum. Normal urinary bladder. There is no pelvic mass lesion or lymphadenopathy. There is no pelvic fluid. Normal abdominal wall. Moderate diffuse spondylosis. IMPRESSION: Fluid-filled distended stomach. Possibly gastroparesis. Mild thickening of the proximal small bowel loops, possibly mild enteritis. Electronically signed on Jun 13, 2018 2:21:14 AM EDT by: Luis Gonzalez M.D., Certified by [facility], [facility], Neuroradiology 06/13/18 02:[address] Mccall, who is aware and agrees with plan. Accepts pt in to his service. Pt will go to [facility] observation for flank pain. Requests Dr. Verdugo on consult. - Lab Interpretations I have reviewed the lab results: Yes - RAD Interpretation Heel Padder: ED Physician - Scribe Statement The provider has reviewed the documentation as recorded by the Devyn Stone Provider Scribe Attestation: All medical record entries made by the Scribe were at my direction and personally dictated by me. I have reviewed the chart and agree that the record accurately reflects my personal performance of the history, physical exam, medical decision making, and the department course for this patient. I have also personally directed, reviewed, and agree with the discharge instructions and disposition. Disposition/Present on Arrival - Present on Arrival Any Indicators Present on Arrival: No History of DVT/PE: No History of Uncontrolled Diabetes: No Urinary Catheter: No History of Decub. Ulcer: No History Surgical Site Infection Following: None - Disposition Have Diagnosis and Disposition been Completed?: Yes Diagnosis: Flank pain Disposition: HOSPITALIZED Disposition Time: 03:04 Patient Problems: Current Active Problems Problem Status Onset Flank pain Acute Condition: STABLE Referrals: Harrison Mccall MD [Primary Care Provider] - Follow up with primary Forms: [employer] (Kinyarwanda)
[2018-06-13] MEDS: Sodium Chloride 0.9% 1,000 ML IV SCH (00:30)
[2018-06-13 00:51] LABS: HEMOGLOBIN 13.8 g/dL (14.0-18.0); MEAN CELL VOLUME 94.8 fl (80.0-105.0); MEAN CORPUSCULAR HEMOGLOBIN 32.5 pg (25.0-35.0); MEAN CORPUSCULAR HGB CONC 34.3 g/dl (31.0-37.0); MEAN PLATELET VOLUME 9.4 fl (7.0-11.0); RBC 4.24 10^6/uL (3.5-6.1); RED CELL DISTRIBUTION WIDTH 13.5 % (11.5-14.5)
[2018-06-13] MEDS ORDERED: Morphine 4 mg/ml ISec IVP STA (01:16)
[2018-06-13 01:23] LABS: ALB/GLOB RATIO 1.4 (1.1-1.8); ALBUMIN 4.5 g/dL (3.0-4.8); ALT/SGPT 25 U/L (7-56); AST/SGOT 42 U/L (17-59); BLOOD UREA NITROGEN 18 mg/dL (7-21); CALCIUM 8.9 mg/dL (8.4-10.5); GFR NON-AFRICAN AMERICAN > 60
[2018-06-13 02:48] LABS: URINE BILIRUBIN NEGATIVE (NEGATIVE); URINE BLOOD NEGATIVE (NEGATIVE); URINE GLUCOSE (UA) NEGATIVE (NEGATIVE); URINE LEUKOCYTE ESTERASE NEGATIVE Leu/uL (NEGATIVE); URINE PROTEIN NEGATIVE mg/dL (<30 mg/dL); URINE UROBILINOGEN 0.2 E.U./dL (<1 E.U./dL)
[2018-06-13 02:51] LABS: URINE APPEARANCE CLEAR (CLEAR); URINE COLOR YELLOW (YELLOW)
[2018-06-13] MEDS ORDERED: Morphine 2 mg/ml ISec IVP STA (03:08)
[2018-06-13] MEDS: Oxycodone/Acetaminophen 5/325 mg Tab PO PRN ×2 (03:57→09:37)
--- NOTE | 2018-06-13 04:54 | CT ---
Date of service: 06/13/2018 PROCEDURE: CT Abdomen and Pelvis without intravenous contrast HISTORY: left flank pain COMPARISON: Comparison is made to the previous study dated 05/16/2018 TECHNIQUE: Axial and reformatted coronal and sagittal CT images of the abdomen and pelvis were obtained without IV or oral contrast administration.. Contrast dose: 0 Radiation dose: Total exam DLP = 591.1 mGy-cm. This CT exam was performed using one or more of the following dose reduction techniques: Automated exposure control, adjustment of the mA and/or kV according to patient size, and/or use of iterative reconstruction technique. FINDINGS: LOWER THORAX: Unremarkable. LIVER: Unremarkable. No gross lesion or ductal dilatation. GALLBLADDER AND BILE DUCTS: Unremarkable. PANCREAS: Unremarkable. No gross lesion or ductal dilatation. SPLEEN: Unremarkable. ADRENALS: Unremarkable. No mass. KIDNEYS AND URETERS: No evidence of nephrolithiasis or hydronephrosis. Again noted is low-attenuation cyst at the left kidney measures 3.3 centimeter in the transverse diameter. Again noted is mild nonspecific bilateral perinephric stranding. VASCULATURE: Unremarkable. No aortic aneurysm. Diffuse atherosclerotic calcification noted in the abdominal aorta and iliac arteries BOWEL: The stomach is moderately distended filled with fluid. The possibility of gastroparesis should be considered. No evidence of small bowel obstruction. Few scattered colonic diverticulosis noted without CT evidence of diverticulitis. Mild proximal small bowel wall thickening suspicious for mild enteritis. APPENDIX: Unremarkable. Normal appendix. PERITONEUM: Unremarkable. No free fluid. No free air. LYMPH NODES: Unremarkable. No enlarged lymph nodes. BLADDER: The urinary bladder is mildly distended demonstrate mild wall thickening. REPRODUCTIVE: The prostate is mildly enlarged. BONES: No acute fracture. OTHER FINDINGS: None. IMPRESSION: No evidence of nephrolithiasis or hydronephrosis. Moderately distended stomach suspicious for possible gastroparesis. Colonic diverticulosis without evidence of diverticulitis. Mild proximal small bowel wall thickening suspicious for enteritis. Preliminary report was submitted by [facility] Radiology contains concordant findings.
[2018-06-13 05:03] VITALS: BMI 22.5
[2018-06-13 05:16] VITALS: RESP 20
[2018-06-13] MEDS ORDERED: Alum-Mag Hydrox-Simethicone Susp (30 mL) PO PRN (08:12)
[2018-06-13] MEDS ORDERED: Magnesium Hydroxide Susp 30 ml UD PO PRN (08:12)
[2018-06-13] MEDS: Multivitamin With Minerals Tab PO SCH (09:37)
--- NOTE | 2018-06-13 10:46 | CP.PCM.CON ---
History of Present Illness - History of Present Illness History of Present Illness: PGY4 GI fellow consult note 58 WM with Duodenal and jejunum ulcers, CAD s/p multiple stents, CVA (no residual deficits), hiatal hernia, diverticulosis, depression/anxiety presenting with flank pain. He reports bilateral flank pain over the last several days with it becoming noticeably worse on the left side since Wednesday afternoon. He reports a sensation of "knife stuck in both sides of my back." He does not provide much other details regarding his pain other than that he thinks he needs another endoscopy. he denied any dysphagia, nausea, vomiting, melena, hematochezia nor any dysuria. He does state he might be urinating more than normal. 12 pt ROS completed and negative except for above. MRE 04/2018: sigmoid and rectal changes of inflammation, mass like region of enhancement at anorectal junction SB enterescopy 03/2018: multiple non-bleeding duodenal ulcers, multiple non- bleeding jejunal ulcers, hiatal hernia Colonoscopy 11/2017: diverticulosis, internal hemorrhoids, multiple polpys (biopsied) EGD 11/2017: hiatal hernia, esophagitis, gastritis, descending multiple non- bleeding duodenal ulcers Celiac disease, IBD, gastrinoma work-up has been negative thus far PMH: Duodenal and jejunum ulcers while on NSAIDs. CAD s/p multiple stents. CVA (no residual deficits), hiatal hernia, diverticulosis, depression/anxiety PSH: lung bx, multiple colonoscopies and endoscopies. Meds: as per MAR Allergies: stu quinolones, metronidazole SocHx: heavy tobacco and EtOH use FHx: sister w/ thyroid CA, mother w/ colon/liver CA Past Patient History - Infectious Disease Hx of Infectious Diseases: None - Tetanus Immunizations Tetanus Immunization: Up to Date - Past Medical History & Family History Past Medical History?: Yes - Past Social History Smoking Status: Light Smoker < 10 Cigarettes Daily - CARDIAC Hx Cardiac Disorders: Yes (mi) Hx Hypercholesterolemia: Yes Hx Hypertension: Yes (orthostatic hypotension) - PULMONARY Hx Respiratory Disorders: Yes (SMOKES 10 CIG A DAY.) Hx Chronic Obstructive Pulmonary Disease (COPD): No (PT DENIES) - NEUROLOGICAL Hx Neurological Disorder: Yes (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) HX Cerebrovascular Accident: Yes Hx Seizures: No Other/Comment: NEUROPATHY - HEENT Hx HEENT Problems: No - RENAL Hx Chronic Kidney Disease: No - ENDOCRINE/METABOLIC Hx Endocrine Disorders: No - HEMATOLOGICAL/ONCOLOGICAL Hx Blood Disorders: Yes Hx Anemia: Yes (IRON DEFICIENCY ANEMIA) - INTEGUMENTARY Hx Dermatological Problems: No (TATTOOS) - MUSCULOSKELETAL/RHEUMATOLOGICAL Hx Falls: No - GASTROINTESTINAL Hx Gastrointestinal Disorders: Yes (H/O RECTAL PROLAPSE,COLONIC MASS,) Hx Diverticulitis: Yes Hx Gastroesophageal Reflux: No Hx Pancreatitis: (pt denies) Other/Comment: duoduenal ulcers,HEMORRHOIDS,GASTRITIS - GENITOURINARY/GYNECOLOGICAL Hx Genitourinary Disorders: No Hx Prostate Problems: No - PSYCHIATRIC Hx Psychophysiologic Disorder: Yes Hx Anxiety: Yes - SURGICAL HISTORY Hx Surgeries: Yes (CARDIAC STENTS X 5) Hx Cardiac Catheterization: Yes Hx Coronary Stent: Yes (x5) Other/Comment: left leg vein removed - ANESTHESIA Hx Anesthesia: No Hx Anesthesia Reactions: No Hx Malignant Hyperthermia: No Meds Allergies/Adverse Reactions: Allergies Allergy/AdvReac Type Severity Reaction Status Date / Time ciprofloxacin Allergy Severe NUMBNESS Verified 06/12/18 15:59 levofloxacin [From Levaquin] Allergy NUMBNESS Verified 06/12/18 15:59 metronidazole [From Flagyl] Allergy SWELLING Verified 06/12/18 15:59 Quinolones Allergy ANAPHYLAXIS Verified 06/12/18 15:59 - Medications Medications: Current Medications Acetaminophen (Tylenol 325mg Tab) 650 mg PO Q6H PRN PRN Reason: Pain, moderate (4-7) Al Hydrox/Mg Hydrox/Simethicone (Maalox Plus 30 Ml) 30 ml PO DAILY PRN PRN Reason: Indigestion / Heartburn Atorvastatin Calcium (Lipitor) 40 mg PO DIN LONA Clopidogrel Bisulfate (Plavix) 75 mg PO DAILY [facility] Last Admin: 06/13/18 09:37 Dose: 75 mg Diazepam (Valium) 2 mg PO BID PRN; Protocol PRN Reason: Anxiety Last Admin: 06/13/18 09:37 Dose: 2 mg Famotidine (Pepcid) 20 mg PO HS [facility] Folic Acid (Folic Acid) 1 mg PO DAILY [facility] Last Admin: 06/13/18 09:37 Dose: 1 mg Sodium Chloride (Sodium Chloride 0.9%) 1,000 mls @ 100 mls/hr IV .Q10H [facility] Last Admin: 06/13/18 00:30 Dose: 100 mls/hr Magnesium Hydroxide (Milk Of Magnesia) 30 ml PO DAILY PRN PRN Reason: Constipation Multivitamins/Minerals (Therapeutic-M Tab) 1 tab PO DAILY [facility] Last Admin: 06/13/18 09:37 Dose: 1 tab Nicotine (Nicoderm Cq) 1 patch TD DAILY [facility] Last Admin: 06/13/18 09:48 Dose: Not Given Oxycodone/Acetaminophen (Percocet 5/325 Mg Tab) 1 tab PO Q4H PRN PRN Reason: Pain, moderate (4-7) Stop: 06/13/18 11:00 Last Admin: 06/13/18 09:37 Dose: 1 tab Pantoprazole Sodium (Protonix Inj) 40 mg IVP DAILY [facility] Last Admin: 06/13/18 09:38 Dose: 40 mg Trazodone HCl (Desyrel) 100 mg PO HS [facility] Physical Exam - Constitutional Appears: Well, No Acute Distress - Head Exam Head Exam: ATRAUMATIC, NORMAL INSPECTION - Eye Exam Eye Exam: EOMI. absent: Scleral icterus - ENT Exam ENT Exam: Mucous Membranes Moist. absent: Mucous Membranes Dry - Respiratory Exam Respiratory Exam: Clear to Auscultation Bilateral, NORMAL BREATHING PATTERN. absent: Wheezes - Cardiovascular Exam Cardiovascular Exam: REGULAR RHYTHM, RRR - GI/Abdominal Exam GI & Abdominal Exam: Normal Bowel Sounds, Soft, Tenderness (tender to palpation around left flank). absent: Bruit, Diminished Bowel Sounds, Distended, Firm, Guarding, Hernia, Mass, Organomegaly, Pulsatile Mass, Rebound, Rigid - Rectal Exam Rectal Exam: Deferred - Extremities Exam Extremities exam: Positive for: normal inspection. Negative for: pedal edema - Neurological Exam Neurological exam: Alert, CN II-XII Intact Additional comments: occasionally anxious/agitated. - Psychiatric Exam Psychiatric exam: Agitated (occasionally), Anxious, Normal Mood - Skin Skin Exam: Normal Color, Warm Results - Vital Signs Recent Vital Signs: Last Vital Signs Temp 98 F 06/13/18 08:43 Pulse 71 06/13/18 08:43 Resp 20 06/13/18 08:43 BP 117/66 06/13/18 08:43 Pulse Ox 96 06/13/18 08:43 - Labs Result Diagrams: 06/13/18 00:32 06/13/18 00:32 Labs: Laboratory Results - last 24 hr 06/13/18 06/13/18 06/13/18 00:32 00:32 02:30 WBC 10.0 RBC 4.24 Hgb 13.8 L Hct 40.2 L MCV 94.8 MCH 32.5 MCHC 34.3 RDW 13.5 Plt Count 314 MPV 9.4 Sodium 134 Potassium 4.0 Chloride 96 L Carbon Dioxide 25 Anion Gap 17 BUN 18 Creatinine 0.7 L Est GFR ( Amer) > 60 Est GFR (Non-Af Amer) > 60 Random Glucose 96 Calcium 8.9 Total Bilirubin 0.6 AST 42 ALT 25 Alkaline Phosphatase 47 Total Protein 7.7 Albumin 4.5 Globulin 3.2 Albumin/Globulin Ratio 1.4 Urine Color Yellow Urine Appearance Clear Urine pH 6.0 Ur Specific [place] <= 1.005 Urine Protein Negative Urine Glucose (UA) Negative Urine Ketones Negative Urine Blood Negative Urine Nitrate Negative Urine Bilirubin Negative Urine Urobilinogen 0.2 Ur Leukocyte Esterase Negative Assessment & Plan - Assessment and Plan (Free Text) Assessment: #Abdominal pain: Chronic, unclear etiology. Counseled pt on second opinion. Exam consistent with more MSK related pain as was directly over rib this afternoon. #Ulcers of jejunum - possible IBD vs ischemia vs NSAID. Note outpatient IBD serology showed ASCA IgA 23.9 "Equivocal" #CAD s/p stents #Psych disorder, alcohol abuse Plan: -PPI -Bowel regimen -Supportive care -Diet as tolerated -Consider outpatient video capsule endoscopy -Counseled pt on need for second opinion at [facility] Case discussed with Dr. Verdugo, see attestation. Portions of this note has been dictated but not necessarily proofread
--- NOTE | 2018-06-13 12:40 | CP.PCM.APN ---
Subjective - Date & Time of Evaluation Date of Evaluation: 06/13/18 Time of Evaluation: 10:45 - Subjective Subjective: Pt seen and examined at bedside. No abdominal pain, nausea or vomiting. C/O siomara flank pain. Objective - Vital Signs/Intake and Output Vital Signs (last 24 hours): Temp Pulse Resp BP Pulse Ox 98 F 71 20 117/66 96 06/13/18 08:43 06/13/18 08:43 06/13/18 08:43 06/13/18 08:43 06/13/18 08:43 - Medications Medications: Current Medications Acetaminophen (Tylenol 325mg Tab) 650 mg PO Q6H PRN PRN Reason: Pain, moderate (4-7) Al Hydrox/Mg Hydrox/Simethicone (Maalox Plus 30 Ml) 30 ml PO DAILY PRN PRN Reason: Indigestion / Heartburn Atorvastatin Calcium (Lipitor) 40 mg PO DIN LONA Clopidogrel Bisulfate (Plavix) 75 mg PO DAILY [facility] Last Admin: 06/13/18 09:37 Dose: 75 mg Diazepam (Valium) 2 mg PO BID PRN; Protocol PRN Reason: Anxiety Last Admin: 06/13/18 09:37 Dose: 2 mg Famotidine (Pepcid) 20 mg PO HS [facility] Folic Acid (Folic Acid) 1 mg PO DAILY [facility] Last Admin: 06/13/18 09:37 Dose: 1 mg Sodium Chloride (Sodium Chloride 0.9%) 1,000 mls @ 100 mls/hr IV .Q10H [facility] Last Admin: 06/13/18 00:30 Dose: 100 mls/hr Magnesium Hydroxide (Milk Of Magnesia) 30 ml PO DAILY PRN PRN Reason: Constipation Multivitamins/Minerals (Therapeutic-M Tab) 1 tab PO DAILY [facility] Last Admin: 06/13/18 09:37 Dose: 1 tab Nicotine (Nicoderm Cq) 1 patch TD DAILY [facility] Last Admin: 06/13/18 09:48 Dose: Not Given Pantoprazole Sodium (Protonix Inj) 40 mg IVP DAILY [facility] Last Admin: 06/13/18 09:38 Dose: 40 mg Trazodone HCl (Desyrel) 100 mg PO HS [facility] - Labs Labs: 06/13/18 00:32 06/13/18 00:32 - Constitutional Appears: No Acute Distress - Respiratory Exam Respiratory Exam: Clear to Ausculation Bilateral, NORMAL BREATHING PATTERN - GI/Abdominal Exam GI & Abdominal Exam: Soft, Normal Bowel Sounds - Neurological Exam Neurological Exam: Alert, Awake, Oriented x3 Assessment and Plan - Assessment and Plan (Free Text) Assessment: Pt is a 58 y.o. male w/ pmhx Duodenal and jejunum ulcers, CAD s/p multiple stents, CVA (no residual deficits), hiatal hernia, diverticulosis, depression /anxiety who presented in ED with siomara flank pain. ITS Impressions Abdomen/Pelvis CT 06/13/18 00:16 IMPRESSION: No evidence of nephrolithiasis or hydronephrosis. Moderately distended stomach suspicious for possible gastroparesis. Colonic diverticulosis without evidence of diverticulitis. Mild proximal small bowel wall thickening suspicious for enteritis. Preliminary report was submitted by [facility] contains concordant findings. Plan: GI on consult Psych consulted for multiple somatic complaints Meds per MAR Will continue to follow
[2018-06-13] MEDS ORDERED: Oxycodone/Acetaminophen 5/325 mg Tab PO PRN (14:08)
[2018-06-13 17:09] VITALS: TEMP 98.2; O2SAT 98
--- NOTE | 2018-06-14 03:37 | CON ---
DATE: 06/13/2018 The patient is a 58-year-old white male who was admitted with abdominal pain. He reportedly has a history of both alcohol and benzodiazepine dependence/abuse. HISTORY OF PRESENT ILLNESS: The patient whose past medical history includes COPD, hypertension, hyperlipidemia, CAD with multiple cardiac stents, gastric ulcer (also a duodenal and jejunal ulcer according to the patient), renal cyst, BPH, came to the emergency room complaining of bilateral flank pain. He indicated he had gone to the emergency room on the day prior to his present admission for a similar complaint and was discharged home, but his pain was continuous and thus he notified who advised him to return to the emergency room leading to this present admission. The patient himself who was a vague and even avoidant historian spoke of having pain for approximately 1-1/2 years due to his aforementioned ulcers, the origin of which he is uncertain about. 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 He indicates to me that he would like to go back to work. He indicates that he presently resides with his and what appears to be two children that he indicates is from her. He indicates that he has four children, all from one woman, but the patient appears to be vague and evasive. He had been at least once previously for an undefined time (possibly 2 years) with this woman subsequently having for reasons uncertain (after their divorce). He did not want to talk about this or any other possible marriages (with my sense being that there was at least one other marriage prior to his present marriage). He did state that he started drinking earlier in his life (he could or would not tell me the onset of any problem, the amount that he was drinking, although he indicates he still drinks about a six-pack periodically). He did indicate that he was a number of years ago in either a detox or rehab in [place], [place], for 4 days. The success of this endeavor is uncertain, but my sense is that he has continued drinking. He also indicated he had been started (he does not want to tell me by whom) on a Valium (possibly Valium), but saw a psychiatrist to be tapered off of this. He did not want to tell me the name of the psychiatrist that rendered to this care or when. He denied other mental health involvement. He denied a familial psychiatric history, indicating he has four siblings. His parents are . The patient has had a CT scan of his abdomen and pelvis that shows uncomplicated colonic diverticulosis with mild prostatomegaly and prostatic calcifications as well as a fluid-filled distended stomach with mild thickening of the proximal small bowel loops. He also has an unchanged left renal cyst. The impression was that of a fluid-filled distended stomach, possibly gastroparesis. A CBC and differential shows slightly low hemoglobin of 13.8 and a hematocrit of 40.2. A biochemical profile shows as unremarkable. Urinalysis was unremarkable. VITAL SIGNS: Blood pressure 117/66, pulse 71, temperature 98, respiratory rate 20. The patient is alert, multiply tattooed, a vague historian, avoidant of specific facts, yet having some recall (identifying the office building that I have my office in - with he being under the care of a milieu with a chiropractor in that office building). He denied depression. He spoke of some anxiety. He did not want to speak about sleep or appetite. He denied suicidality or homicidality or psychotic ideation. DIAGNOSTIC IMPRESSION: Alcohol and sedative hypnotic use disorder. The patient is aware that he is presently on trazodone, with he looking upon this as an antidepressant. He did not want to me to intervene with any psychotropic medication. We will discuss further with you. Lance Arredondo MD/ PhD
[2018-06-14] MEDS: Sodium Chloride 0.9% 1,000 ML IV SCH (05:45)
--- NOTE | 2018-06-14 08:17 | HP ---
DATE OF EXAM: 06/13/2018 CHIEF COMPLAINT: The patient is a 58-year-old male who is being come to the ER on 06/12/2018 twice complaint of left-sided pain, which is more in the left lower quadrant going up to the left renal area. HISTORY OF PRESENT ILLNESS: This is a 58-year-old male who has a history of rectal prolapse, cerebellar atrophy correlated, history of hypercholesterolemia, coronary artery disease, multiple stents, still smoking on and off, and came in complaining of left side pain that has been going on for a month. According to the patient, he complained of pain that is all day and night. The patient had multiple studies including MRI, seen by pain management, Dr. Harrison Adams as outpatient, seen by GI consult, Dr. Verdugo, and psychiatrist admission was maybe two weeks ago and has been with multiple somatic complaint, panic episodes and anxiety problems. He came in with similar complaint to the emergency room and was admitted for observations and admission through physiatric evaluations. HOME MEDICATIONS: He is taking 2 mg b.i.d. p.r.n., trazodone 100 mg p.o. at bedtime, Nicoderm CQ, multivitamin, milk of magnesia, magnesium oxide once a day, folic acid 1 mg p.o. daily, Pepcid 20 mg p.o. at bedtime, Plavix 75 mg p.o. daily, Lipitor 40 mg once a day, Tylenol p.r.n., and Protonix 40 mg at bedtime. ALLERGIES: ALLERGIC TO CIPRO, LEVAQUIN, FLAGYL, AND QUINOLONES. REVIEW OF SYSTEMS: As above. He does complain of back pain, left thigh pain, rectal pain, some anxiety, and difficulty sleeping. Denied chest pain. PHYSICAL EXAMINATION: VITAL SIGNS: Temperature is 98, heart rate is 71, blood pressure is 117/66, respirations are 20, and saturation 96% on room air. HEAD AND NECK: Normal. No JVD. No thyromegaly. CHEST: Clear bilaterally. CARDIAC: First sound and second sound normal. No murmur, rub, or gallop. ABDOMEN: Soft and nontender. The patient also have left upper quadrant, left renal area, and subcostal area mild tenderness. EXTREMITIES: No edema. NEUROLOGICAL: Normal. LABORATORY DATA: Showed white count 10, hemoglobin 13.8, hematocrit 40.2, and platelets 314. Chemistry; sodium 134, potassium 4, chloride 96, bicarb 25, BUN 18, and creatinine 0.7. Liver function test is normal. Urine is negative. The patient also . CT of abdomen and pelvis was done without any IV contrast and no evidence of any nephrolithiasis or hydronephrosis, moderately distended stomach suspicious for possible gastroparesis, colonic diverticulosis without diverticulitis, mild proximal small bowel thickening suspicious for enteritis. IMPRESSION AND PLAN: 1. Abdominal pain, left side subcostal pain, we will get Dr. Verdugo to see the patient. The patient was advised to follow up with Dr. Adams as an outpatient, may have some subcostal pain with radicular pain. Follow up as an outpatient for that. 2. Abnormal CAT scan with possible enteritis. We will get GI, Dr. Verdugo to evaluate the patient. 3. The patient has multiple somatic complaint was admission to the hospital with history of looks like an anxiety, panic attacks could be paranoid component. We will continue current therapy. We will follow up clinically. I will consult Dr. Arredondo for him, reviewing his cardiac medications for his coronary artery disease and hypercholesteremia. Harrison Mccall MD
[2018-06-14 08:18] VITALS: BP 128/68; PULSE 58
[2018-06-14] MEDS: Multivitamin With Minerals Tab PO SCH (10:13)
--- NOTE | 2018-06-14 13:32 | CP.PCM.PCO ---
Additional Comments - Additional Comments Additional Comments: D/W GI, cleared to be dc home. Recommends to continue w/ PPI, milk of magnesia and to f/u with Dr. Cali as outpt for video capsule endoscopy. D/W Dr. Arredondo, recommends to continue w/ Risperdal and will need to f/u in his office. Dr. Mccall cleared pt for DC home.
--- NOTE | 2018-06-14 19:46 | CP.PCM.PN ---
Subjective - Date & Time of Evaluation Date of Evaluation: 06/14/18 Time of Evaluation: 12:30 - Subjective Subjective: Seen and examined at bedside, chart reviewed. No acute overnight events. No N/V, abdominal pain better. No diarrhea or bleeding reported. ct scan abdomen and pelvis films reviewed. Objective - Vital Signs/Intake and Output Vital Signs (last 24 hours): Temp Pulse Resp BP Pulse Ox 98.2 F 58 L 20 128/68 98 06/13/18 17:09 06/14/18 08:16 06/14/18 08:16 06/14/18 08:16 06/14/18 08:16 Intake and Output: 06/14/18 06/14/18 06:59 18:59 Intake Total 1200 Balance 1200 - Labs Labs: 06/13/18 00:32 06/13/18 00:32 - Constitutional Appears: No Acute Distress - Head Exam Head Exam: NORMOCEPHALIC - Eye Exam Eye Exam: Normal appearance. absent: Scleral icterus - ENT Exam ENT Exam: Mucous Membranes Moist - Neck Exam Neck Exam: Normal Inspection - Respiratory Exam Respiratory Exam: Clear to Ausculation Bilateral, NORMAL BREATHING PATTERN. absent: Respiratory Distress - Cardiovascular Exam Cardiovascular Exam: +S1, +S2 - GI/Abdominal Exam GI & Abdominal Exam: Soft, Tenderness ((+) tenderness to left flank), Normal Bowel Sounds. absent: Guarding, Organomegaly, Rebound - Extremities Exam Extremities Exam: absent: Calf Tenderness, Pedal Edema - Neurological Exam Neurological Exam: Alert, Awake, Oriented x3 - Skin Skin Exam: Dry, Warm Assessment and Plan - Assessment and Plan (Free Text) Assessment: ASSESSMENT: Chronic Abdominal pain ,s/p ct scan :gastroparesis, thickening rectal wall, differential to consider Crohns Disease Ulcers of jejunum , bx show acute inflammation, IBD serology showed ASCA IgA 23.9 "Equivocal" CAD s/p stents Psych disorder, alcohol abuse Plan: script given for fecal calprotectin, will do upon discharge refer to Dr. Cali for outpatient video capsule endoscopy,contact information to be given at discharge blood draw for Quanterferon Gold, hepatitis shane, and TPMT essay, discuss w/ nursing to collect prior to DC home. recommend soft food, even puree for inflamed bowel. [facility] [place] [place] [facility] Plan dicussed w/patient and nursing staff who agree, questions answered. FU office closely, must have above recommendation done . Seen and examined with Dr. Verdugo.
[2018-06-14 21:10] LABS: HEPATITIS B SURFACE AG Negative (NEGATIVE)
[2018-06-14 21:15] LABS: HEPATITIS A IGM NEGATIVE (NEGATIVE); HEPATITIS B CORE AB NEGATIVE (NEGATIVE)
[2018-06-14 21:27] LABS: HEPATITIS C ANTIBODY NEGATIVE (NEGATIVE)
[2018-06-15] MEDS ORDERED: Pantoprazole 40 mg EC Tab PO SCH (07:30)
== END 2018-06-14 15:52 | disposition home or self-care (01) ==
LOC: ED 23:45 → ERH 06-13 03:05 → 3RNO 06-13 04:43
PROVIDERS: ADMIT Internal Medicine; ATTEND Internal Medicine
DX: K31.84 Gastroparesis (principal); I10 Essential (primary) hypertension; F13.10 Sedative, hypnotic or anxiolytic abuse, uncomplicated; I25.10 Atherosclerotic heart disease of native coronary artery without angina pectoris; J44.9 Chronic obstructive pulmonary disease, unspecified; K25.9 Gastric ulcer, unspecified as acute or chronic, without hemorrhage or perforation; K57.30 Diverticulosis of large intestine without perforation or abscess without bleeding; E78.00 Pure hypercholesterolemia, unspecified; G89.29 Other chronic pain; N28.1 Cyst of kidney, acquired; F10.10 Alcohol abuse, uncomplicated; E78.5 Hyperlipidemia, unspecified; N40.0 Benign prostatic hyperplasia without lower urinary tract symptoms; I69.393 Ataxia following cerebral infarction; Z79.02 Long term (current) use of antithrombotics/antiplatelets; Z95.5 Presence of coronary angioplasty implant and graft; Z87.891 Personal history of nicotine dependence
CPT/HCPCS: 36415; 74176; 80053; 80074; 81003; 83789; 85027; 86481; 96360; 96361; 96374; 99281; C9113; G0378; J1885; J2270; J7030

== ENCOUNTER 2018-06-14 15:48 | Outpatient (CLI) | payer MEDICARE, OTHER | END 2018-06-14 15:49 | disposition home or self-care (01) | LOC: LAB 15:48 ==

== ENCOUNTER 2018-06-22 23:42 | Observation (INO) | payer MEDICARE, OTHER ==
--- NOTE | 2018-06-23 00:03 | ED PDOC ---
Arrival/HPI <Lc Boyd - Last Filed: 06/23/18 01:50> - General Historian: Patient - History of Present Illness Narrative History of Present Illness (Text): 06/23/18 00:00 Patient is a 58yo M with PMH COPD, hypertension, hyperlipidemia, CAD s/p multiple cardiac stents, gastric ulcer, renal cyst, BPH, and alcohol abuse, who presents to the emergency department complaining of chest pain. He reports the pain began 1 hour prior, and describes it as a sharp pain that lasted 20 minutes. He denies radiation of the pain, nausea, dizziness, neck or arm pain. He reports sweating. He claims the pain is intermittent and he still experiences it. He denies fever, chills, shortness of breath, vomiting, diarrhea, dysuria. He reports abdominal pain in the LLQ that is chronic. He was recently admitted to psych. 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) Other/Comment: NEUROPATHY - HEENT Hx HEENT Disorder: No - Renal Hx Renal Disorder: No - Endocrine/Metabolic Hx Endocrine Disorders: No - Hematological/Oncological Hx Blood Disorders: Yes Hx Anemia: Yes (IRON DEFICIENCY ANEMIA) - Integumentary Hx Dermatological Disorder: No (TATTOOS) - Musculoskeletal/Rheumatological Hx Falls: No Hx Fractures: No - Gastrointestinal Hx Gastrointestinal Disorders: Yes (H/O RECTAL PROLAPSE,COLONIC MASS,) Hx Diverticulitis: Yes Hx Pancreatitis: (pt denies) Other/Comment: duoduenal ulcers,HEMORRHOIDS,GASTRITIS - Genitourinary/Gynecological Hx Genitourinary Disorders: No Hx Prostate Problems: No - Psychiatric Hx Anxiety: Yes Hx Substance Use: Yes - Past Surgical History Past Surgical History: No Previous - Surgical History Hx Coronary Stent: Yes (x5) - Anesthesia Hx Anesthesia: No Hx Anesthesia Reactions: No Hx Malignant Hyperthermia: No - Suicidal Assessment Feels Threatened In Home Enviroment: No <Lorenza Damico - Last Filed: 06/23/18 02:36> Family/Social History Family/Social History: No Known Family HX Smoking Status: Light Smoker < 10 Cigarettes Daily Hx Alcohol Use: Yes Hx Substance Use: Yes Hx Substance Use Treatment: No <Lorenza Damico - Last Filed: 06/23/18 02:36> Allergies/Home Meds <Lc Boyd - Last Filed: 06/23/18 01:50> <Lorenza Damico - Last Filed: 06/23/18 02:36> Allergies/Adverse Reactions: Allergies ciprofloxacin Allergy (Severe, Verified 06/12/18 15:59) NUMBNESS levofloxacin [From Levaquin] Allergy (Verified 06/12/18 15:59) NUMBNESS metronidazole [From Flagyl] Allergy (Verified 06/12/18 15:59) SWELLING Quinolones Allergy (Verified 06/12/18 15:59) ANAPHYLAXIS Review of Systems - Review of Systems Constitutional: Normal Eyes: Normal ENT: Normal Respiratory: Normal Cardiovascular: Chest Pain Gastrointestinal: Abdominal Pain. absent: Constipation, Diarrhea, Nausea, Vomiting Genitourinary Male: Normal Musculoskeletal: Back Pain Skin: Normal Neurological: Normal Endocrine: Diaphoresis Hemo/Lymphatic: Normal Psychiatric: Normal <Lorenza Damico - Last Filed: 06/23/18 02:36> Physical Exam Vital Signs Temp Pulse Resp BP Pulse Ox 06/23/18 00:02 97.9 F 78 18 130/76 96 <Lc Boyd - Last Filed: 06/23/18 01:50> - Systems Exam Head: Present: Atraumatic, Normocephalic Pupils: Present: PERRL Extroacular Muscles: Present: EOMI Conjunctiva: Present: Normal Mouth: Present: Moist Mucous Membranes Neck: Present: Normal Range of Motion Respiratory/Chest: Present: Clear to Auscultation, Good Air Exchange. No: Respiratory Distress, Accessory Muscle Use Cardiovascular: Present: Regular Rate and Rhythm, Normal S1, S2. No: Murmurs Abdomen: Present: Normal Bowel Sounds. No: Tenderness, Distention, Peritoneal Signs Upper Extremity: Present: Normal Inspection, Normal ROM. No: Cyanosis, Edema Lower Extremity: Present: Normal Inspection, Normal ROM. No: Edema Neurological: Present: GCS=15, CN II-XII Intact, Speech Normal Skin: Present: Warm, Normal Color. No: Dry, Rashes Psychiatric: Present: Alert, Oriented x 3, Anxious, Agitated <Lorenza Damico - Last Filed: 06/23/18 02:36> Medical Decision Making ED Course and Treatment: Impression: Pt seen and evaluated with medical record transcriber on all. Aware and agree with HPI, clinical findings, plan, and management. Pt, whose past medical history includes COPD, hypertension, hyperlipidemia, CAD s/p multiple cardiac stents, gastric ulcer, renal cyst, BPH, and alcohol abuse, presented for chest pain. Plan: -- EKG -- CXR -- Labs, cardiac enzymes -- Urinalysis -- Aspirin -- Reassess and disposition - RAD Interpretation Radiology Orders: 06/23/18 00:07 CHEST PORTABLE [RAD] Stat - Medication Orders Current Medication Orders: Discontinued Medications Alprazolam (Xanax) 0.25 mg PO STAT STA; Protocol Stop: 06/23/18 00:08 <Lc Boyd - Last Filed: 06/23/18 01:50> ED Course and Treatment: 06/23/18 00:04 r/o ACS - CBC, CMP - troponin - EKG - CXR - UA - reassess 06/23/18 02:34 - troponin negative - EKG: NSR - CXR: no active disease - Hospitalist accepts admission to remote tele <Lorenza Damico - Last Filed: 06/23/18 02:36> - PA / PROGRAM SERVICES PLANNER / Resident Statement MARK has reviewed & agrees with the documentation as recorded. MARK has examined the patient and agrees with the treatment plan. <Lc Boyd - Last Filed: 06/23/18 01:50> Disposition/Present on Arrival <Lc Boyd Last Filed: 06/23/18 01:50> - Present on Arrival Any Indicators Present on Arrival: No History of DVT/PE: No History of Uncontrolled Diabetes: No Urinary Catheter: No History Surgical Site Infection Following: None - Disposition Have Diagnosis and Disposition been Completed?: Yes Disposition Time: 02:36 <Lorenza Damico - Last Filed: 06/23/18 02:36> - Disposition Diagnosis: Chest pain Disposition: HOSPITALIZED Condition: STABLE Discharge Instructions (ExitCare): Chest Pain (ED)
[2018-06-23 00:07] VITALS: BMI 23.6
[2018-06-23 01:04] LABS: BASO # 0.02 K/mm3 (0.0-2.0); BASO % 0.2 % (0.0-3.0); EOS # 0.4 (0.0-0.7); HEMOGLOBIN 13.3 g/dL (14.0-18.0); LYMPH % 22.8 % (22.0-35.0); MEAN CELL VOLUME 96.9 fl (80.0-105.0); MEAN CORPUSCULAR HEMOGLOBIN 32.2 pg (25.0-35.0); MEAN CORPUSCULAR HGB CONC 33.3 g/dl (31.0-37.0); MEAN PLATELET VOLUME 9.5 fl (7.0-11.0); MONO # 0.6 (0.1-0.6); MONO % 7.2 % (1.0-6.0); RBC 4.13 10^6/uL (3.5-6.1); RED CELL DISTRIBUTION WIDTH 14.1 % (11.5-14.5); WHITE BLOOD COUNT 8.8 10^3/uL (4.5-11.0)
[2018-06-23 01:13] LABS: TROPONIN I < 0.01 ng/mL
[2018-06-23 01:37] LABS: ALB/GLOB RATIO 1.3 (1.1-1.8); ALBUMIN 4.2 g/dL (3.0-4.8); ALT/SGPT 20 U/L (7-56); AST/SGOT 51 U/L (17-59); BLOOD UREA NITROGEN 15 mg/dL (7-21); CALCIUM 9.6 mg/dL (8.4-10.5); GFR NON-AFRICAN AMERICAN > 60
[2018-06-23] MEDS ORDERED: Alum-Mag Hydrox-Simethicone Susp (30 mL) PO PRN (03:00)
--- NOTE | 2018-06-23 03:10 | CP.PCM.HP ---
<FaviolaAngelo - Last Filed: 06/23/18 04:27> History of Present Illness - History of Present Illness History of Present Illness: Angelo Salmeron DO PGY-1 H&P Note for Dr. Kristy López: mid sternal chest pain 58 yo male with PMH of COPD, HTN, HLD, CAD s/p 5 stents, gastric ulcer, renal cyst, BPH, and EtOH abuse presents with mid-sternal chest pain x1 day. Pain started 1 hour before coming to ED, sharp, lasted for 20 minutes, non radiating, at rest, no alleviating or exacerbating factors. Pain is associated with nausea, diaphoresis. He is known h/o diverticulosis and has occasionallower abdominal pain. He denies SOB, palpitations, cough, CABRERA, dizziness, vomiting, diarrhea, GI symptoms. Review of chart: stress test (05/10) normal. Echo (01/09) normal with EF 56.9% PMH: COPD, HTN, HLD, CAD s/p 5 stents, gastric ulcer, renal cyst, BPH, and EtOH abuse Surg: ANNETTE x5 (2.5 yrs ago), lung biopsy All: Ciprofloxacin, Levofloxacin, Metronidazole SH: 40 pack yr history smoking, former heavy EtOH use (15-20 beers daily, quit 4 months ago), medical marijuana use FHx: Sister with thyroid CA Medications as per APR PMD: Dr. Mccall Regional Branch Manager: Dr. 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) Other/Comment: NEUROPATHY - HEENT Hx HEENT Problems: No - RENAL Hx Chronic Kidney Disease: No - ENDOCRINE/METABOLIC Hx Endocrine Disorders: No - HEMATOLOGICAL/ONCOLOGICAL Hx Blood Disorders: Yes Hx Anemia: Yes (IRON DEFICIENCY ANEMIA) - INTEGUMENTARY Hx Dermatological Problems: No (TATTOOS) - MUSCULOSKELETAL/RHEUMATOLOGICAL Hx Falls: No Hx Fractures: No - GASTROINTESTINAL Hx Gastrointestinal Disorders: Yes (H/O RECTAL PROLAPSE,COLONIC MASS,) Hx Diverticulitis: Yes Hx Pancreatitis: (pt denies) Other/Comment: duoduenal ulcers,HEMORRHOIDS,GASTRITIS - GENITOURINARY/GYNECOLOGICAL Hx Genitourinary Disorders: No Hx Prostate Problems: No - PSYCHIATRIC Hx Anxiety: Yes Hx Substance Use: Yes - SURGICAL HISTORY Hx Coronary Stent: Yes (x5) - ANESTHESIA Hx Anesthesia: No Hx Anesthesia Reactions: No Hx Malignant Hyperthermia: No Meds Allergies/Adverse Reactions: Allergies Allergy/AdvReac Type Severity Reaction Status Date / Time ciprofloxacin Allergy Severe NUMBNESS Verified 06/12/18 15:59 levofloxacin [From Levaquin] Allergy NUMBNESS Verified 06/12/18 15:59 metronidazole [From Flagyl] Allergy SWELLING Verified 06/12/18 15:59 Quinolones Allergy ANAPHYLAXIS Verified 06/12/18 15:59 Physical Exam - Constitutional Appears: Well, Non-toxic, No Acute Distress - Head Exam Head Exam: ATRAUMATIC, NORMAL INSPECTION, NORMOCEPHALIC - Eye Exam Eye Exam: EOMI, Normal appearance, PERRL Pupil Exam: NORMAL ACCOMODATION, PERRL - ENT Exam ENT Exam: Mucous Membranes Moist, Normal Exam - Neck Exam Neck exam: Positive for: Normal Inspection - Respiratory Exam Respiratory Exam: Clear to Auscultation Bilateral, NORMAL BREATHING PATTERN - Cardiovascular Exam Cardiovascular Exam: REGULAR RHYTHM, +S1, +S2. absent: Gallop, Rubs - GI/Abdominal Exam GI & Abdominal Exam: Normal Bowel Sounds, Soft. absent: Tenderness - Extremities Exam Extremities exam: Positive for: normal capillary refill, normal inspection, pedal pulses present - Back Exam Back exam: NORMAL INSPECTION - Neurological Exam Neurological exam: Alert, CN II-XII Intact, Normal Gait, Oriented x3, Reflexes Normal - Psychiatric Exam Psychiatric exam: Normal Affect, Normal Mood - Skin Skin Exam: Dry, Intact, Normal Color, Warm Results - Vital Signs Recent Vital Signs: Last Vital Signs Temp 97.9 F 06/23/18 00:02 Pulse 78 06/23/18 00:02 Resp 18 06/23/18 00:02 BP 130/76 06/23/18 00:02 Pulse Ox 96 06/23/18 00:02 - Labs Result Diagrams: 06/23/18 00:33 06/23/18 00:33 Labs: Laboratory Results - last 24 hr 06/23/18 06/23/18 00:33 00:33 WBC 8.8 RBC 4.13 Hgb 13.3 L Hct 40.0 L MCV 96.9 MCH 32.2 MCHC 33.3 RDW 14.1 Plt Count 291 MPV 9.5 Neut % (Auto) 64.8 Lymph % (Auto) 22.8 [place] % (Auto) 7.2 H Eos % (Auto) 5.0 Baso % (Auto) 0.2 Lymph # (Auto) 2.0 [place] # (Auto) 0.6 Eos # (Auto) 0.4 Baso # (Auto) 0.02 Absolute Neuts (auto) 5.72 Sodium 139 Potassium 4.1 Chloride 105 Carbon Dioxide 28 Anion Gap 10 BUN 15 Creatinine 0.6 L Est GFR ( Amer) > 60 Est GFR (Non-Af Amer) > 60 Random Glucose 95 Calcium 9.6 Total Bilirubin 0.4 AST 51 ALT 20 Alkaline Phosphatase 48 Lactate Dehydrogenase 344 Total Creatine Kinase 119 Troponin I < 0.01 Total Protein 7.4 Albumin 4.2 Globulin 3.2 Albumin/Globulin Ratio 1.3 Assessment & Plan - Assessment and Plan (Free Text) Assessment: 58 yo male with PMH of COPD, HTN, HLD, CAD s/p 5 stents, gastric ulcer, renal cyst, BPH, and EtOH abuse presents with mid-sternal chest pain x1 day. EKG, CXR, trops negative. Admitted to [facility] for observation Plan: Chest pain r/o ACS: -EKG:NSR@[address]-T changes -CXR:NAD -trops negative x1. continue to trend Hx CAD s/p stents -continue ASA, plavix -Echo (01/09) normal with EF 56.9% -stress test (05/10) normal -cardio consult Dr Vazquez Hx COPD: -duoneb prn HLD: -continue lipitor 40 -lipid profile (06/10) CHOL 152 LDL 98 HDL 43 PPX: DVT: SCD, lovenox GI: protonix HHD Case reviewed and plan discussed with Dr Kristy Salmeron, DO PGY1 <Vinny Wagner - Last Filed: 06/23/18 06:38> Results - Vital Signs Recent Vital Signs: Last Vital Signs Temp 97.9 F 06/23/18 06:00 Pulse 60 06/23/18 06:00 Resp 18 06/23/18 06:00 BP 125/68 06/23/18 06:00 Pulse Ox 97 06/23/18 06:00 - Labs Result Diagrams: 06/23/18 00:33 06/23/18 00:33 Labs: Laboratory Results - last 24 hr 06/23/18 06/23/18 06/23/18 00:33 00:33 00:33 WBC 8.8 RBC 4.13 Hgb 13.3 L Hct 40.0 L MCV 96.9 MCH 32.2 MCHC 33.3 RDW 14.1 Plt Count 291 MPV 9.5 Neut % (Auto) 64.8 Lymph % (Auto) 22.8 [place] % (Auto) 7.2 H Eos % (Auto) 5.0 Baso % (Auto) 0.2 Lymph # (Auto) 2.0 [place] # (Auto) 0.6 Eos # (Auto) 0.4 Baso # (Auto) 0.02 Absolute Neuts (auto) 5.72 Sodium 139 Potassium 4.1 Chloride 105 Carbon Dioxide 28 Anion Gap 10 BUN 15 Creatinine 0.6 L Est GFR ( Amer) > 60 Est GFR (Non-Af Amer) > 60 Random Glucose 95 Calcium 9.6 Phosphorus 3.7 Magnesium 2.3 H Total Bilirubin 0.4 AST 51 ALT 20 Alkaline Phosphatase 48 Lactate Dehydrogenase 344 Total Creatine Kinase 119 Troponin I < 0.01 Total Protein 7.4 Albumin 4.2 Globulin 3.2 Albumin/Globulin Ratio 1.3 TSH 3rd Generation 06/23/18 00:33 WBC RBC Hgb Hct MCV MCH MCHC RDW Plt Count MPV Neut % (Auto) Lymph % (Auto) [place] % (Auto) Eos % (Auto) Baso % (Auto) Lymph # (Auto) [place] # (Auto) Eos # (Auto) Baso # (Auto) Absolute Neuts (auto) Sodium Potassium Chloride Carbon Dioxide Anion Gap BUN Creatinine Est GFR ( Amer) Est GFR (Non-Af Amer) Random Glucose Calcium Phosphorus Magnesium Total Bilirubin AST ALT Alkaline Phosphatase Lactate Dehydrogenase Total Creatine Kinase Troponin I Total Protein Albumin Globulin Albumin/Globulin Ratio TSH 3rd Generation 2.52 Attending/Attestation - Attestation I have personally seen and examined this patient.: Yes I have fully participated in the care of the patient.: Yes I have reviewed all pertinent clinical information: Yes Notes (Text): 05/02/19 06:38 Seen and examined. Discussed with resident. Atypical CP, cardiology to see since high risk pt.
[2018-06-23] MEDS ORDERED: Albuterol-Ipratrop 3 mg / 0.5 (3 ml) UD IH PRN (04:14)
--- NOTE | 2018-06-23 09:05 | RAD ---
Date of service: 06/23/2018 HISTORY: chest pain COMPARISON: 06/06/2018 TECHNIQUE: 1 view obtained. FINDINGS: LUNGS: No active pulmonary disease. PLEURA: No significant pleural effusion identified, no pneumothorax apparent. CARDIOVASCULAR: No aortic atherosclerotic calcification present. Normal cardiac size. No pulmonary vascular congestion. OSSEOUS STRUCTURES: No significant abnormalities. VISUALIZED UPPER ABDOMEN: Normal. OTHER FINDINGS: None. IMPRESSION: No active disease.
--- NOTE | 2018-06-23 09:06 | CARD ---
APPROVED REPORT Date of service: 06/23/2018 EKG Measurement Heart [id number] <Conclusion> Normal sinus rhythm Normal ECG
[2018-06-23] MEDS: Multivitamin With Minerals Tab PO SCH (09:24)
[2018-06-23] MEDS: Enoxaparin 40 mg Syringe SC SCH ×2 (09:25→09:30)
[2018-06-23 09:55] LABS: PH,URINE 5.5 (4.7-8.0); URINE BILIRUBIN NEGATIVE (NEGATIVE); URINE BLOOD NEGATIVE (NEGATIVE); URINE GLUCOSE (UA) NEGATIVE (NEGATIVE); URINE LEUKOCYTE ESTERASE NEGATIVE Leu/uL (NEGATIVE); URINE PROTEIN NEGATIVE mg/dL (<30 mg/dL); URINE UROBILINOGEN 0.2 E.U./dL (<1 E.U./dL)
[2018-06-23 10:08] LABS: URINE COLOR YELLOW (YELLOW)
[2018-06-23 10:09] LABS: URINE APPEARANCE CLEAR (CLEAR)
[2018-06-23 10:18] LABS: BARBITURATES, UR NEGATIVE (NEGATIVE); BENZODIAZEPINES, UR POSITIVE (NEGATIVE); OPIATES, UR NEGATIVE (NEGATIVE); PHENCYCLIDINE, UR NEGATIVE (NEGATIVE)
[2018-06-23] MEDS ORDERED: Lidocaine PF 2% (5 ml) Inj (For Cardiac Arrhy) ONE (11:31)
[2018-06-23] MEDS ORDERED: Nitroglycerin 50mg in D5W 0 MG/0 ML BOTTLE IV ONE (11:32)
[2018-06-23] MEDS ORDERED: Phenylephrine 10 mg/ml Inj ONE (11:32)
[2018-06-23] MEDS ORDERED: Iohexol 350mgl/ml 50 ML ONE (11:33)
[2018-06-23] MEDS ORDERED: Iodixanol 320 MG/ML 100 ML BOTTLE IV ONE (11:33)
[2018-06-23] MEDS ORDERED: Iodixanol 320 MG/ML 200 ML BOTTLE IV ONE (11:33)
--- NOTE | 2018-06-23 12:09 | CP.PCM.CON ---
History of Present Illness - History of Present Illness History of Present Illness: Awake, alert, no distress Reason for consultation:Cardiac evaluation of chest pain Brief history of present illness: A 58 year old male who came in to the ER due to mid-sternal non radiating chest pain x 1 day.Chest pain associated with nausea, diaphoresis. History of diverticulosis,COPD, hypertension, hyperlipidemia, , coronary artery disease with stents, gastric ulcer, renal cyst, BPH, and alcohol abuse, lung biopsy, smoking with 40 pack years history ,former heavy EtOH use (15-20 beers daily, quit 4 months ago), medical marijuana use. Consult was called to evaluate chest pain. Seen and examined by me and Dr. 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) HX Cerebrovascular Accident: Yes Other/Comment: NEUROPATHY - HEENT Hx HEENT Problems: No (glasses) - RENAL Hx Chronic Kidney Disease: No - ENDOCRINE/METABOLIC Hx Endocrine Disorders: No Hx Hyperthyroidism: (pt denies) - HEMATOLOGICAL/ONCOLOGICAL Hx Blood Disorders: Yes Hx Anemia: Yes (IRON DEFICIENCY ANEMIA) - INTEGUMENTARY Hx Dermatological Problems: No (TATTOOS) - MUSCULOSKELETAL/RHEUMATOLOGICAL Hx Falls: No Hx Fractures: No - GASTROINTESTINAL Hx Gastrointestinal Disorders: Yes (H/O RECTAL PROLAPSE,COLONIC MASS,) Hx Diverticulitis: Yes Hx Pancreatitis: (pt denies) Other/Comment: duoduenal ulcers,HEMORRHOIDS,GASTRITIS - GENITOURINARY/GYNECOLOGICAL Hx Genitourinary Disorders: No Hx Prostate Problems: No - PSYCHIATRIC Hx Anxiety: Yes - SURGICAL HISTORY Hx Surgeries: Yes (CARDIAC STENTS X 5) Hx Coronary Stent: Yes (x5) Other/Comment: left leg vein removed - ANESTHESIA Hx Anesthesia: No Hx Anesthesia Reactions: No Hx Malignant Hyperthermia: No Meds Allergies/Adverse Reactions: Allergies Allergy/AdvReac Type Severity Reaction Status Date / Time ciprofloxacin Allergy Severe NUMBNESS Verified 06/12/18 15:59 levofloxacin [From Levaquin] Allergy NUMBNESS Verified 06/12/18 15:59 metronidazole [From Flagyl] Allergy SWELLING Verified 06/12/18 15:59 Quinolones Allergy ANAPHYLAXIS Verified 06/12/18 15:59 - Medications Medications: Current Medications Acetaminophen (Tylenol 325mg Tab) 650 mg PO Q6H PRN PRN Reason: Pain, moderate (4-7) Al Hydrox/Mg Hydrox/Simethicone (Maalox Plus 30 Ml) 30 ml PO DAILY PRN PRN Reason: Indigestion / Heartburn Last Admin: 06/23/18 09:24 Dose: 30 ml Albuterol/Ipratropium (Duoneb 3 Mg/0.5 Mg (3 Ml) Ud) 3 ml IH Q2H PRN PRN Reason: Shortness of Breath Aspirin (Ecotrin) 81 mg PO DAILY [facility] Last Admin: 06/23/18 10:49 Dose: Not Given Atorvastatin Calcium (Lipitor) 40 mg PO DIN [facility] Clopidogrel Bisulfate (Plavix) 75 mg PO DAILY [facility] Last Admin: 06/23/18 09:25 Dose: 75 mg Enoxaparin Sodium (Lovenox) 40 mg SC DAILY [facility]; Protocol Last Admin: 06/23/18 09:30 Dose: Not Given Famotidine (Pepcid) [address] [facility] Folic Acid (Folic Acid) 1 mg PO DAILY [facility] Last Admin: 06/23/18 09:25 Dose: 1 mg Multivitamins/Minerals (Therapeutic-M Tab) 1 tab PO DAILY [facility] Last Admin: 06/23/18 09:24 Dose: 1 tab Nicotine (Nicoderm Cq) 1 patch TD DAILY [facility] Last Admin: 06/23/18 09:25 Dose: Not Given Ondansetron HCl (Zofran Inj) 4 mg IVP Q6 PRN PRN Reason: Nausea/Vomiting Risperidone (Risperdal Tab) 0.25 mg PO HS [facility]; Protocol Physical Exam - Constitutional Appears: Non-toxic, No Acute Distress - Head Exam Head Exam: NORMAL INSPECTION, NORMOCEPHALIC - Eye Exam Eye Exam: Normal appearance Pupil Exam: NORMAL ACCOMODATION - ENT Exam ENT Exam: Mucous Membranes Moist, Normal Exam - Respiratory Exam Respiratory Exam: Decreased Breath Sounds, Clear to Auscultation Bilateral, NORMAL BREATHING PATTERN - Cardiovascular Exam Cardiovascular Exam: REGULAR RHYTHM, +S1, +S2 - GI/Abdominal Exam GI & Abdominal Exam: Normal Bowel Sounds, Soft - Extremities Exam Extremities exam: Positive for: full ROM, normal capillary refill - Neurological Exam Neurological exam: Alert, Oriented x3 - Psychiatric Exam Psychiatric exam: Normal Affect, Normal Mood - Skin Skin Exam: Dry, Normal Color, Warm Results - Vital Signs Recent Vital Signs: Last Vital Signs Temp 97.9 F 06/23/18 06:00 Pulse 60 06/23/18 06:00 Resp 18 06/23/18 06:00 BP 125/68 06/23/18 06:00 Pulse Ox 97 06/23/18 06:00 - Labs Result Diagrams: 06/23/18 00:33 06/23/18 00:33 Labs: Laboratory Results - last 24 hr 06/23/18 06/23/18 06/23/18 00:33 00:33 00:33 WBC 8.8 RBC 4.13 Hgb 13.3 L Hct 40.0 L MCV 96.9 MCH 32.2 MCHC 33.3 RDW 14.1 Plt Count 291 MPV 9.5 Neut % (Auto) 64.8 Lymph % (Auto) 22.8 [place] % (Auto) 7.2 H Eos % (Auto) 5.0 Baso % (Auto) 0.2 Lymph # (Auto) 2.0 [place] # (Auto) 0.6 Eos # (Auto) 0.4 Baso # (Auto) 0.02 Absolute Neuts (auto) 5.72 Sodium 139 Potassium 4.1 Chloride 105 Carbon Dioxide 28 Anion Gap 10 BUN 15 Creatinine 0.6 L Est GFR ( Amer) > 60 Est GFR (Non-Af Amer) > 60 Random Glucose 95 Calcium 9.6 Phosphorus 3.7 Magnesium 2.3 H Total Bilirubin 0.4 AST 51 ALT 20 Alkaline Phosphatase 48 Lactate Dehydrogenase 344 Total Creatine Kinase 119 Troponin I < 0.01 Total Protein 7.4 Albumin 4.2 Globulin 3.2 Albumin/Globulin Ratio 1.3 TSH 3rd Generation Urine Color Urine Appearance Urine pH Ur Specific [place] Urine Protein Urine Glucose (UA) Urine Ketones Urine Blood Urine Nitrate Urine Bilirubin Urine Urobilinogen Ur Leukocyte Esterase Urine Opiates Screen Urine Methadone Screen Ur Barbiturates Screen Ur Phencyclidine Scrn Ur Amphetamines Screen U Benzodiazepines Scrn U Oth Cocaine Metabols U Cannabinoids Screen Alcohol, Quantitative 0506/23/18 06/23/18 00:33 03:00 09:34 WBC RBC Hgb Hct MCV MCH MCHC RDW Plt Count MPV Neut % (Auto) Lymph % (Auto) [place] % (Auto) Eos % (Auto) Baso % (Auto) Lymph # (Auto) [place] # (Auto) Eos # (Auto) Baso # (Auto) Absolute Neuts (auto) Sodium Potassium Chloride Carbon Dioxide Anion Gap BUN Creatinine Est GFR ( Amer) Est GFR (Non-Af Amer) Random Glucose Calcium Phosphorus Magnesium Total Bilirubin AST ALT Alkaline Phosphatase Lactate Dehydrogenase Total Creatine Kinase Troponin I Total Protein Albumin Globulin Albumin/Globulin Ratio TSH 3rd Generation 2.52 Urine Color Yellow Urine Appearance Clear Urine pH 5.5 Ur Specific [place] 1.020 Urine Protein Negative Urine Glucose (UA) Negative Urine Ketones Negative Urine Blood Negative Urine Nitrate Negative Urine Bilirubin Negative Urine Urobilinogen 0.2 Ur Leukocyte Esterase Negative Urine Opiates Screen Urine Methadone Screen Ur Barbiturates Screen Ur Phencyclidine Scrn Ur Amphetamines Screen U Benzodiazepines Scrn U Oth Cocaine Metabols U Cannabinoids Screen Alcohol, Quantitative < 10 06/23/18 09:34 WBC RBC Hgb Hct MCV MCH MCHC RDW Plt Count MPV Neut % (Auto) Lymph % (Auto) [place] % (Auto) Eos % (Auto) Baso % (Auto) Lymph # (Auto) [place] # (Auto) Eos # (Auto) Baso # (Auto) Absolute Neuts (auto) Sodium Potassium Chloride Carbon Dioxide Anion Gap BUN Creatinine Est GFR ( Amer) Est GFR (Non-Af Amer) Random Glucose Calcium Phosphorus Magnesium Total Bilirubin AST ALT Alkaline Phosphatase Lactate Dehydrogenase Total Creatine Kinase Troponin I Total Protein Albumin Globulin Albumin/Globulin Ratio TSH 3rd Generation Urine Color Urine Appearance Urine pH Ur Specific [place] Urine Protein Urine Glucose (UA) Urine Ketones Urine Blood Urine Nitrate Urine Bilirubin Urine Urobilinogen Ur Leukocyte Esterase Urine Opiates Screen Negative Urine Methadone Screen Negative Ur Barbiturates Screen Negative Ur Phencyclidine Scrn Negative Ur Amphetamines Screen Negative U Benzodiazepines Scrn Positive H U Oth Cocaine Metabols Negative U Cannabinoids Screen Negative Alcohol, Quantitative Assessment & Plan - Assessment and Plan (Free Text) Assessment: A 58 year old male who came in to the ER due to mid-sternal non radiating chest pain x 1 day.Chest pain associated with nausea, diaphoresis. History of diverticulosis,COPD, hypertension, hyperlipidemia, , coronary artery disease with stents, gastric ulcer, renal cyst, BPH, and alcohol abuse, lung biopsy, smoking with 40 pack years history ,former heavy alcohol abuse (15-20 beers daily, quit 4 months ago), medical marijuana use. Consult was called to evaluate chest pain. Latest Stress test done on 05/12/18 normal results and LVEF 55%, Echo done on 01/05/18 showed LVEF 57%, trace TR and trace pulmonic valve regurgitation. Latest cardiac cath done on 04/25/15 showed patent stent in LAD/RPDA, proximal LAD eccentric plaque with 40-50% stenosis, LVEF 50-55%, abdominal aortogram and peripheral angiogram up to mid thigh showed no signifi cant flow stenosis. Recommended medical treatment at that time. Plavix and ASA for at least one year and smoking cessation. Atypical chest pain. Troponin negative. EKG showed normal sinus rhythm. Urine positive for benzodiazepines. For cardiac cath today. Patient agreed. Kept NPO. Plavix loading dose given. Plan: No distress For cardiac cath today Loading dose Plavix given Blood pressure stable Heart rate stable On ASA 81 mg daily, Lipitor 40 mg daily, Plavix 75 mg daily, Nicotine patch daily Continue current medications Continue current treatment Further recommendations during hospital course Smoking cessation Will follow up Plan and treatment discussed with Dr. Vazquez Thank you Dr. Tejada for the opportunity of taking care of Anuel Whitt - Date & Time Date: 06/23/18 Time: 06:39
[2018-06-23] MEDS ORDERED: Midazolam 2 MG/2 ML VIAL ONE (12:46)
[2018-06-23] MEDS ORDERED: Sodium Chloride 0.9% 1,000 ML IV SCH (13:30)
--- NOTE | 2018-06-23 13:31 | CP.PCM.PCO ---
Physician Communication Note - Physician Communication Note Physician Communication Note: s/p cardiac cath
--- NOTE | 2018-06-23 14:05 | CPOSTOP ---
DATE: 06/23/2018 DICTATING PHYSICIAN: Yajaira Vazquez MD FOLDED TOWEL MACHINE OPERATOR: Leatha television production technician. TYPE OF ANESTHESIA: Moderate conscious sedation; total 2 mg of Versed and 100 mcg of fentanyl given, periodically started 1 mg of Versed and 50 of fentanyl. PRE-PROCEDURE DIAGNOSES: Unstable angina, acute coronary syndrome, status post multiple stents in the past. PROCEDURE PERFORMED: Left heart catheterization. FINDINGS: Patent previous stent, preserved LV function. FINAL DIAGNOSES: Nonobstructive coronary artery disease, preserved left ventricular function. POST PROCEDURE CONDITION: The patient's condition is stable. VASCULAR ACCESS SITE: Right femoral artery. CLOSURE DEVICE: Mynx. TOTAL RADIATION DOSE: 4295 milligray unit. CUMULATIVE DOSE: 600 milligray unit. TOTAL FLUORO TIME: 3.1 minutes. Yajaira Vazquez MD
--- NOTE | 2018-06-23 17:44 | CARD ---
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 INDICATION The indication(s) include : unstable angina , chest pain, dyspnea. CASE TECHNIQUE The patient was brought emergently to the Cardiac Catheterization Laboratory in a fasting state and was prepped and draped in a sterile manner. The right femoral groin was infiltrated with 2% Lidocaine subcutaneous anesthesia. A 6 Fr x 11 cm Gertrudis sheath was inserted into the right femoral artery without difficulty. Coronary angiography was performed using coronary diagnostic catheters. The left coronary system was accessed and visualized with a Diagnostic,5F JL 4 CATH DXT 100 CM catheter. The right coronary system was accessed and visualized with a Diagnostic ,6F JR4 CATH DXT 100 CM catheter. The left ventricle was accessed and visualized with a 5F PIGTAIL 145 CATH DXT 110 CM catheter. Left ventricular/Aortic Valve gradient assessed on pullback. Left ventriculogram was performed in SEGOVIA projection. Closure device was deployed with a 6 Fr / 7 Fr MynxGrip without any complications. The patient tolerated the procedure well and there were no complications associated with the procedure. Vessel Analysis The patient's coronary anatomy is right dominant. The left main coronary artery is a large size vessel with diffuse calcification noted throughout this vessel and without significant stenosis. The left main bifurcates to the left anterior descending and circumflex. The left anterior descending artery is a medium size vessel with diffuse calcification noted throughout this vessel and without significant stenosis. patent stents in proximal and Mid LAD noted The first diagonal branch is a medium size vessel with diffuse calcification noted throughout this vessel and without significant stenosis. The circumflex artery is a medium size vessel with diffuse calcification noted throughout this vessel and without significant stenosis. There is a 50-60% stenosis in the proximal segment. The first obtuse marginal branch is a medium size vessel with diffuse calcification noted throughout this vessel and without significant stenosis. The right coronary artery is a medium to large size vessel with diffuse calcification noted throughout this vessel and without significant stenosis. Patent stent proximally There is a 30-40% stenosis in the mid segment. The right posterior descending artery is a medium size vessel with diffuse calcification noted throughout this vessel and without significant stenosis. Patent stent proximally The right posterolateral branch is a medium size vessel with diffuse calcification noted throughout this vessel and without significant stenosis. Left Ventricle The left ventricle is normal in size with normal contractility. There was no cardiomyopathy. The left ventricular ejection fraction is estimated to be 60-65%. The left ventricular end diastolic pressure is 12 mmHg. There was no gradient across the aortic valve upon pullback. Conclusion Non obstructive CAD limited to proximal Cx 50-60% stenosis, which ids essentially unchanged from 12/31/2014. patent Stents in LAD, CX, RCA, and R PDA. Preserved LV FX, EF-60-65%, EDP-12 mmof Hg Recommendations Aggressive Medical TherapyCardiac Risk Reduction Program Pt. is off ASA and plavix( himself stopped taking), nonCompliance pt. Consider GI W/u for non cardiac chest pain. Emphasis on compliance pf meds and complete cessation of smoking and ETOH abuse. Cc; Drs. Mccall/ Edi.
[2018-06-23] MEDS ORDERED: Oxycodone/Acetaminophen 5/325 mg Tab PO ONE (21:00)
--- NOTE | 2018-06-23 21:04 | CARD ---
APPROVED REPORT Date of service: 06/23/2018 EKG Measurement Heart [id number] <Conclusion> Sinus bradycardia Otherwise normal ECG
[2018-06-23] MEDS ORDERED: TRAZODONE HCL 100 MG PO SCH (22:00)
[2018-06-23 23:50] VITALS: RESP 18
[2018-06-24 06:05] VITALS: O2SAT 96
--- NOTE | 2018-06-24 07:02 | CP.PCM.PN ---
Subjective - Date & Time of Evaluation Date of Evaluation: 06/24/18 Time of Evaluation: 06:30 - Subjective Subjective: Awake, alert, no distress Reason for consultation and follow up : Cardiac evaluation of chest pain, History of diverticulosis,COPD, hypertension, hyperlipidemia, , coronary artery disease with stents, gastric ulcer, renal cyst, BPH, and alcohol abuse, post cardiac catheterization, non obstructive coronary artery disease. Seen and examined by me and Dr. Vazquez Objective - Vital Signs/Intake and Output Vital Signs (last 24 hours): Temp Pulse Resp BP Pulse Ox 97.9 F 54 L 18 107/63 96 06/24/18 06:00 06/24/18 06:00 06/24/18 06:00 06/24/18 06:00 06/24/18 06:00 Intake and Output: 06/24/18 06/24/18 06:59 18:59 Intake Total 300 Output Total 3 Balance 297 - Medications Medications: Current Medications Acetaminophen (Tylenol 325mg Tab) 650 mg PO Q6H PRN PRN Reason: Pain, moderate (4-7) Al Hydrox/Mg Hydrox/Simethicone (Maalox Plus 30 Ml) 30 ml PO DAILY PRN PRN Reason: Indigestion / Heartburn Last Admin: 06/23/18 09:24 Dose: 30 ml Albuterol/Ipratropium (Duoneb 3 Mg/0.5 Mg (3 Ml) Ud) 3 ml IH Q2H PRN PRN Reason: Shortness of Breath Aspirin (Ecotrin) 81 mg PO DAILY [facility] Last Admin: 06/23/18 10:49 Dose: Not Given Atorvastatin Calcium (Lipitor) 40 mg PO DIN [facility] Last Admin: 06/23/18 17:41 Dose: 40 mg Enoxaparin Sodium (Lovenox) 40 mg SC DAILY [facility]; Protocol Last Admin: 06/23/18 09:30 Dose: Not Given Famotidine (Pepcid) 20 mg PO HS [facility] Last Admin: 06/23/18 22:01 Dose: 20 mg Folic Acid (Folic Acid) 1 mg PO DAILY [facility] Last Admin: 06/23/18 09:25 Dose: 1 mg Multivitamins/Minerals (Therapeutic-M Tab) 1 tab PO DAILY [facility] Last Admin: 06/23/18 09:24 Dose: 1 tab Nicotine (Nicoderm Cq) 1 patch TD DAILY [facility] Last Admin: 06/23/18 09:25 Dose: Not Given Ondansetron HCl (Zofran Inj) 4 mg IVP Q6 PRN PRN Reason: Nausea/Vomiting Risperidone (Risperdal Tab) 0.25 mg PO HS [facility]; Protocol Last Admin: 06/23/18 22:11 Dose: Not Given - Labs Labs: 06/23/18 00:33 06/23/18 00:33 - Constitutional Appears: Non-toxic, No Acute Distress - Head Exam Head Exam: NORMAL INSPECTION, NORMOCEPHALIC - Eye Exam Eye Exam: Normal appearance Pupil Exam: NORMAL ACCOMODATION - ENT Exam ENT Exam: Mucous Membranes Moist, Normal Exam - Respiratory Exam Respiratory Exam: Decreased Breath Sounds, Clear to Ausculation Bilateral, NO RMAL BREATHING PATTERN - Cardiovascular Exam Cardiovascular Exam: Bradycardia, +S1, +S2 - GI/Abdominal Exam GI & Abdominal Exam: Soft, Normal Bowel Sounds - Extremities Exam Extremities Exam: Full ROM, Normal Capillary Refill - Neurological Exam Neurological Exam: Alert, Awake, Oriented x3 - Psychiatric Exam Psychiatric exam: Normal Affect, Normal Mood - Skin Skin Exam: Dry, Normal Color, Warm Assessment and Plan - Assessment and Plan (Free Text) Assessment: A 58 year old male who came in to the ER due to mid-sternal non radiating chest pain x 1 day.Chest pain associated with nausea, diaphoresis. History of diverticulosis,COPD, hypertension, hyperlipidemia, , coronary artery disease wit h stents, gastric ulcer, renal cyst, BPH, and alcohol abuse, lung biopsy, smoking with 40 pack years history ,former heavy alcohol abuse (15-20 beers daily, quit 4 months ago), medical marijuana use. Consult was called to evaluate chest pain. Latest Stress test done on 05/12/18 normal results and LVEF 55%, Echo done on 01/05/18 showed LVEF 57%, trace TR and trace pulmonic valve regurgitation. Latest cardiac cath done on 04/25/15 showed patent stent in LAD/RPDA, proximal LAD eccentric plaque with 40-50% stenosis, LVEF 50-55%, abdominal aortogram and peripheral angiogram up to mid thigh showed no significant flow stenosis. Recommended medical treatment at that time. Plavix and ASA for at least one year and smoking cessation. Atypical chest pain. Troponin negative. EKG showed normal sinus rhythm. Urine positive for benzodiazepines. Cardiac cath done yesterday and showed non obstructive coronary artery disease limited to proximal circumflex 50-60% unchanged from 01/01/2016. LVEF 60-65%. Patent stents in LAD,CX,RCA and RPDA. He stopped taking Plavix and Aspirin on his own. Consider GI work up. Will discontinue telemetry. Plan: No distress, denies chest pain Post cardiac cath yesterday Cardiac status stable Blood pressure stable Heart rate stable Discontinue telemetry On ASA 81 mg daily, Lipitor 40 mg daily, Plavix 75 mg daily, Nicotine patch daily Continue current medications Continue current treatment Compliance of medications Complete Smoking cessation and alcohol abuse/intake May discharge from cardiac standpoint Will follow up Plan and treatment discussed with Dr. Vazquez
[2018-06-24 07:15] LABS: BASO # 0.02 K/mm3 (0.0-2.0); BASO % 0.2 % (0.0-3.0); EOS # 0.3 (0.0-0.7); EOS % 2.7 % (1.5-5.0); HEMOGLOBIN 12.3 g/dL (14.0-18.0); LYMPH # 1.6 (1.2-3.4); LYMPH % 16.8 % (22.0-35.0); MEAN CELL VOLUME 97.7 fl (80.0-105.0); MEAN CORPUSCULAR HEMOGLOBIN 31.5 pg (25.0-35.0); MEAN CORPUSCULAR HGB CONC 32.2 g/dl (31.0-37.0); MEAN PLATELET VOLUME 9.5 fl (7.0-11.0); MONO # 0.9 (0.1-0.6); MONO % 8.8 % (1.0-6.0); RBC 3.91 10^6/uL (3.5-6.1); RED CELL DISTRIBUTION WIDTH 14.6 % (11.5-14.5); WHITE BLOOD COUNT 9.8 10^3/uL (4.5-11.0)
[2018-06-24 07:37] LABS: ALB/GLOB RATIO 1.3 (1.1-1.8); ALBUMIN 3.6 g/dL (3.0-4.8); ALT/SGPT 22 U/L (7-56); AST/SGOT 39 U/L (17-59); BLOOD UREA NITROGEN 24 mg/dL (7-21); CALCIUM 8.7 mg/dL (8.4-10.5); GFR NON-AFRICAN AMERICAN > 60
[2018-06-24] MEDS: Multivitamin With Minerals Tab PO SCH ×2 (10:25→10:52)
[2018-06-24] MEDS ORDERED: Oxycodone/Acetaminophen 2.5/325 mg Tab PO ONE (10:38)
[2018-06-24 12:12] VITALS: BP 131/76; PULSE 59; TEMP 98.1
--- NOTE | 2018-06-24 13:11 | CP.PCM.DIS ---
<Wesley Rajput - Last Filed: 06/24/18 13:07> Provider - Provider Date of Admission: 06/23/18 02:20 Attending physician: Yajaira Valladares MD Primary care physician: Harrison Mccall MD Consults: 06/23/18 03:06 Physician Consult Routine Comment: Consulting Provider: Yajaira Vazquez Consulting Physician: Yajaira Vazquez Reason for Consult: CP, h/o CAD 06/23/18 05:29 Social Work Referral Routine Comment: patient meets criteria Physician Instructions: Reason For Exam: protocol Time Spent in preparation of Discharge (in minutes): 40 Diagnosis - Discharge Diagnosis (1) Nonobstructive atherosclerosis of coronary artery Status: Chronic (2) Alcohol abuse Status: Chronic Hospital Course - Lab Results Lab Results: Most Recent Lab Values WBC 9.8 10^3/uL (4.5-11.0) 06/24/18 06:40 RBC 3.91 10^6/uL (3.5-6.1) 06/24/18 06:40 Hgb 12.3 g/dL (14.0-18.0) L 06/24/18 06:40 Hct 38.2 % (42.0-52.0) L 06/24/18 06:40 MCV 97.7 fl (80.0-105.0) 06/24/18 06:40 MCH 31.5 pg (25.0-35.0) 06/24/18 06:40 MCHC 32.2 g/dl (31.0-37.0) 06/24/18 06:40 RDW 14.6 % (11.5-14.5) H 06/24/18 06:40 Plt Count 254 10^3/uL (120.0-450.0) 06/24/18 06:40 MPV 9.5 fl (7.0-11.0) 06/24/18 06:40 Neut % (Auto) 71.5 % (50.0-68.0) H 06/24/18 06:40 Lymph % (Auto) 16.8 % (22.0-35.0) L 06/24/18 06:40 [place] % (Auto) 8.8 % (1.0-6.0) H 06/24/18 06:40 Eos % (Auto) 2.7 % (1.5-5.0) 06/24/18 06:40 Baso % (Auto) 0.2 % (0.0-3.0) 06/24/18 06:40 Lymph # (Auto) 1.6 (1.2-3.4) 06/24/18 06:40 [place] # (Auto) 0.9 (0.1-0.6) H 06/24/18 06:40 Eos # (Auto) 0.3 (0.0-0.7) 06/24/18 06:40 Baso # (Auto) 0.02 K/mm3 (0.0-2.0) 06/24/18 06:40 Absolute Neuts (auto) 7.01 (1.4-6.5) H 06/24/18 06:40 Sodium 138 mmol/L (132-148) 06/24/18 06:40 Potassium 4.1 mmol/L (3.6-5.0) 06/24/18 06:40 Chloride 104 mmol/L (98-107) 06/24/18 06:40 Carbon Dioxide 28 mmol/L (21-33) 06/24/18 06:40 Anion Gap 10 (10-20) 06/24/18 06:40 BUN 24 mg/dL (7-21) H 06/24/18 06:40 Creatinine 0.8 mg/dl (0.8-1.5) 06/24/18 06:40 Est GFR ( Amer) > 60 06/24/18 06:40 Est GFR (Non-Af Amer) > 60 06/24/18 06:40 Random Glucose 91 mg/dL (70-110) 06/24/18 06:40 Calcium 8.7 mg/dL (8.4-10.5) 06/24/18 06:40 Phosphorus 4.3 mg/dL (2.5-4.5) 06/24/18 06:40 Magnesium 2.3 mg/dL (1.7-2.2) H 06/24/18 06:40 Total Bilirubin 0.6 mg/dL (0.2-1.3) 06/24/18 06:40 AST 39 U/L (17-59) 06/24/18 06:40 ALT 22 U/L (7-56) 06/24/18 06:40 Alkaline Phosphatase 43 U/L (38-126) 06/24/18 06:40 Lactate Dehydrogenase 344 U/L (333-699) 06/23/18 00:33 Total Creatine Kinase 119 U/L (35-230) 06/23/18 00:33 Troponin I < 0.01 ng/mL 06/23/18 00:33 Total Protein 6.5 g/dL (5.8-8.3) 06/24/18 06:40 Albumin 3.6 g/dL (3.0-4.8) 06/24/18 06:40 Globulin 2.8 gm/dL 06/24/18 06:40 Albumin/Globulin Ratio 1.3 (1.1-1.8) 06/24/18 06:40 TSH 3rd Generation 2.52 mIU/mL (0.46-4.68) 06/23/18 00:33 Urine Color Yellow (YELLOW) 06/23/18 09:34 Urine Appearance Clear (CLEAR) 06/23/18 09:34 Urine pH 5.5 (4.7-8.0) 06/23/18 09:34 Ur Specific Bud 1.020 (1.005-1.035) 06/23/18 09:34 Urine Protein Negative mg/dL (<30 mg/dL) 06/23/18 09:34 Urine Glucose (UA) Negative mg/dL (NEGATIVE) 06/23/18 09:34 Urine Ketones Negative mg/dL (NEGATIVE) 06/23/18 09:34 Urine Blood Negative (NEGATIVE) 06/23/18 09:34 Urine Nitrate Negative (NEGATIVE) 06/23/18 09:34 Urine Bilirubin Negative (NEGATIVE) 06/23/18 09:34 Urine Urobilinogen 0.2 E.U./dL (<1 E.U./dL) 06/23/18 09:34 Ur Leukocyte Esterase Negative Augie/uL (NEGATIVE) 06/23/18 09:34 Urine Opiates Screen Negative (NEGATIVE) 06/23/18 09:34 Urine Methadone Screen Negative (NEGATIVE) 06/23/18 09:34 Ur Barbiturates Screen Negative (NEGATIVE) 06/23/18 09:34 Ur Phencyclidine Scrn Negative (NEGATIVE) 06/23/18 09:34 Ur Amphetamines Screen Negative (NEGATIVE) 06/23/18 09:34 U Benzodiazepines Scrn Positive (NEGATIVE) H 06/23/18 09:34 U Oth Cocaine Metabols Negative (NEGATIVE) 06/23/18 09:34 U Cannabinoids Screen Negative (NEGATIVE) 06/23/18 09:34 Alcohol, Quantitative < 10 mg/dL (0-10) 06/23/18 03:00 - Hospital Course Hospital Course: 58 yo male with PMH of COPD, HTN, HLD, CAD s/p 5 stents, gastric ulcer, renal cyst, BPH, and EtOH abuse presented with mid-sternal chest pain x1 day. Pain started 1 hour before coming to ED, sharp, lasted for 20 minutes, non radiating, at rest, no alleviating or exacerbating factors. Pain is associated with nausea, diaphoresis. He is known h/o diverticulosis and has occasional lower abdominal pain. Patient was admitted for evaluation and treatment for his chest pain. CXR was negative. Cardiac enzymes were trended and were negative x3; acute coronary syndrome was ruled out. EKG was NSR. Cardiology was consulted who performed cardiac catherization. Results of the catherization were non-obstructive CAD. As patient was cleared by cardiology and hemodynamically stable, he was discharged. Patient was educated that he was a safe discharge and should follow up with his outpatient doctors for management of his chronic conditions. Patient will be resumed on all of his home medications. Discharge Exam - Head Exam Head Exam: NORMAL INSPECTION, NORMOCEPHALIC - Eye Exam Eye Exam: EOMI, Normal appearance, PERRL Pupil Exam: NORMAL ACCOMODATION - Respiratory Exam Respiratory Exam: Clear to PA & Lateral. absent: Rales, Rhonchi, Wheezes - Cardiovascular Exam Cardiovascular Exam: RRR, +S1, +S2. absent: Diastolic murmur, Gallop, Rubs, Systolic Murmur - GI/Abdominal Exam GI & Abdominal Exam: Soft. absent: Distended, Guarding, Rebound, Tenderness - Extremities Exam Extremities exam: normal inspection - Back Exam Back exam: NORMAL INSPECTION - Neurological Exam Neurological exam: Alert, CN II-XII Intact, Oriented x3 - Psychiatric Exam Psychiatric exam: Normal Affect, Normal Mood - Skin Skin Exam: Dry, Normal Color, Warm Discharge Plan - Follow Up Plan Condition: STABLE Disposition: HOME/ ROUTINE Instructions: Cardiac Catheterization, Chest Pain, Alcohol Abuse and Alcoholism (DC) Additional Instructions: - Follow up with your PMD, equipment operat0r, pain management, and GI within 3-5 days - Resume all home medications as prescribed - Return to ED if symptoms return Referrals: Harrison Mccall MD [Primary Care Provider] - <Yajaira Valladares - Last Filed: 06/24/18 15:09> Provider - Provider Date of Admission: 06/23/18 02:20 Attending physician: Yajaira Valladares MD Primary care physician: Harrison Mccall MD Consults: 06/23/18 03:06 Physician Consult Routine Comment: Consulting Provider: Yajaira Vazquez Consulting Physician: Yajaira Vazquez Reason for Consult: CP, h/o CAD 06/23/18 05:29 Social Work Referral Routine Comment: patient meets criteria Physician Instructions: Reason For Exam: protocol Hospital Course - Lab Results Lab Results: Most Recent Lab Values WBC 9.8 10^3/uL (4.5-11.0) 06/24/18 06:40 RBC 3.91 10^6/uL (3.5-6.1) 06/24/18 06:40 Hgb 12.3 g/dL (14.0-18.0) L 06/24/18 06:40 Hct 38.2 % (42.0-52.0) L 06/24/18 06:40 MCV 97.7 fl (80.0-105.0) 06/24/18 06:40 MCH 31.5 pg (25.0-35.0) 06/24/18 06:40 MCHC 32.2 g/dl (31.0-37.0) 06/24/18 06:40 RDW 14.6 % (11.5-14.5) H 06/24/18 06:40 Plt Count 254 10^3/uL (120.0-450.0) 06/24/18 06:40 MPV 9.5 fl (7.0-11.0) 06/24/18 06:40 Neut % (Auto) 71.5 % (50.0-68.0) H 06/24/18 06:40 Lymph % (Auto) 16.8 % (22.0-35.0) L 06/24/18 06:40 [place] % (Auto) 8.8 % (1.0-6.0) H 06/24/18 06:40 Eos % (Auto) 2.7 % (1.5-5.0) 06/24/18 06:40 Baso % (Auto) 0.2 % (0.0-3.0) 06/24/18 06:40 Lymph # (Auto) 1.6 (1.2-3.4) 06/24/18 06:40 [place] # (Auto) 0.9 (0.1-0.6) H 06/24/18 06:40 Eos # (Auto) 0.3 (0.0-0.7) 06/24/18 06:40 Baso # (Auto) 0.02 K/mm3 (0.0-2.0) 06/24/18 06:40 Absolute Neuts (auto) 7.01 (1.4-6.5) H 06/24/18 06:40 Sodium 138 mmol/L (132-148) 06/24/18 06:40 Potassium 4.1 mmol/L (3.6-5.0) 06/24/18 06:40 Chloride 104 mmol/L (98-107) 06/24/18 06:40 Carbon Dioxide 28 mmol/L (21-33) 06/24/18 06:40 Anion Gap 10 (10-20) 06/24/18 06:40 BUN 24 mg/dL (7-21) H 06/24/18 06:40 Creatinine 0.8 mg/dl (0.8-1.5) 06/24/18 06:40 Est GFR ( Amer) > 60 06/24/18 06:40 Est GFR (Non-Af Amer) > 60 06/24/18 06:40 Random Glucose 91 mg/dL (70-110) 06/24/18 06:40 Calcium 8.7 mg/dL (8.4-10.5) 06/24/18 06:40 Phosphorus 4.3 mg/dL (2.5-4.5) 06/24/18 06:40 Magnesium 2.3 mg/dL (1.7-2.2) H 06/24/18 06:40 Total Bilirubin 0.6 mg/dL (0.2-1.3) 06/24/18 06:40 AST 39 U/L (17-59) 06/24/18 06:40 ALT 22 U/L (7-56) 06/24/18 06:40 Alkaline Phosphatase 43 U/L (38-126) 06/24/18 06:40 Lactate Dehydrogenase 344 U/L (333-699) 06/23/18 00:33 Total Creatine Kinase 119 U/L (35-230) 06/23/18 00:33 Troponin I < 0.01 ng/mL 06/23/18 00:33 Total Protein 6.5 g/dL (5.8-8.3) 06/24/18 06:40 Albumin 3.6 g/dL (3.0-4.8) 06/24/18 06:40 Globulin 2.8 gm/dL 06/24/18 06:40 Albumin/Globulin Ratio 1.3 (1.1-1.8) 06/24/18 06:40 TSH 3rd Generation 2.52 mIU/mL (0.46-4.68) 06/23/18 00:33 Urine Color Yellow (YELLOW) 06/23/18 09:34 Urine Appearance Clear (CLEAR) 06/23/18 09:34 Urine pH 5.5 (4.7-8.0) 06/23/18 09:34 Ur Specific Bud 1.020 (1.005-1.035) 06/23/18 09:34 Urine Protein Negative mg/dL (<30 mg/dL) 06/23/18 09:34 Urine Glucose (UA) Negative mg/dL (NEGATIVE) 06/23/18 09:34 Urine Ketones Negative mg/dL (NEGATIVE) 06/23/18 09:34 Urine Blood Negative (NEGATIVE) 06/23/18 09:34 Urine Nitrate Negative (NEGATIVE) 06/23/18 09:34 Urine Bilirubin Negative (NEGATIVE) 06/23/18 09:34 Urine Urobilinogen 0.2 E.U./dL (<1 E.U./dL) 06/23/18 09:34 Ur Leukocyte Esterase Negative Augie/uL (NEGATIVE) 06/23/18 09:34 Urine Opiates Screen Negative (NEGATIVE) 06/23/18 09:34 Urine Methadone Screen Negative (NEGATIVE) 06/23/18 09:34 Ur Barbiturates Screen Negative (NEGATIVE) 06/23/18 09:34 Ur Phencyclidine Scrn Negative (NEGATIVE) 06/23/18 09:34 Ur Amphetamines Screen Negative (NEGATIVE) 06/23/18 09:34 U Benzodiazepines Scrn Positive (NEGATIVE) H 06/23/18 09:34 U Oth Cocaine Metabols Negative (NEGATIVE) 06/23/18 09:34 U Cannabinoids Screen Negative (NEGATIVE) 06/23/18 09:34 Alcohol, Quantitative < 10 mg/dL (0-10) 06/23/18 03:00 Attending/Attestation - Attestation I have personally seen and examined this patient.: Yes I have fully participated in the care of the patient.: Yes I have reviewed all pertinent clinical information, including history, physical exam and plan: Yes Notes (Text): 06/24/18 15:08 Medical record note made by the resident after discussion with my direction and input after the patient was personally seen and examined by me. I have reviewed the chart and agree that the record accurately reflects by personal performance of the history, physical exam, data review, and medical decision-making, in the course for the patient. I have also personally directed the plan of care. 58 yo male with PMH of COPD, HTN, HLD, CAD s/p 5 stents, gastric ulcer, renal cyst, BPH, and EtOH abuse presented with mid-sternal chest pain x1 day. Pain started 1 hour before coming to ED, sharp, lasted for 20 minutes, non radiating, at rest, no alleviating or exacerbating factors. Pain is associated with nausea, He is known h/o diverticulosis and has occasional lower abdominal pain. Patient was admitted for evaluation and treatment for his chest pain. CXR was negative. Cardiac enzymes were trended and were negative x3; acute coronary syndrome was ruled out. EKG was NSR. Cardiology was consulted who performed cardiac catherization, showed non obstructive coronary artery disease limited to proximal circumflex 50-60% unchanged from 01/01/2016. LVEF 60-65%. Patent stents in LAD,CX,RCA and RPDA. Patient is ambulatory at the time of discharge. He is c/o pain related to diverticulosis but he is tolerating food without any problem. There is no Nausea or vomiting. Abdominal examination is benign.He has been advised to avoid constipation.He has H/O chronic pain syndrome and follows with Pain management clinic . He has been advised to follow up with His PCP Dr.Saleeb ,GI and his pain management doctor. Issue of compliance with medication was discussed in detail. Management plan was discussed in detail with patient. Education was provided.
== END 2018-06-24 14:28 | disposition home or self-care (01) ==
LOC: ED 23:42 → ERH 06-23 02:20 → 2RSO 06-23 04:43
PROVIDERS: ADMIT Internal Medicine; ATTEND Internal Medicine
DX: I25.110 Atherosclerotic heart disease of native coronary artery with unstable angina pectoris (principal); I10 Essential (primary) hypertension; F10.10 Alcohol abuse, uncomplicated; E78.5 Hyperlipidemia, unspecified; J44.9 Chronic obstructive pulmonary disease, unspecified; N40.0 Benign prostatic hyperplasia without lower urinary tract symptoms; K57.90 Diverticulosis of intestine, part unspecified, without perforation or abscess without bleeding; N28.1 Cyst of kidney, acquired; G89.4 Chronic pain syndrome; I25.2 Old myocardial infarction; Z86.73 Personal history of transient ischemic attack (TIA), and cerebral infarction without residual deficits; Z87.11 Personal history of peptic ulcer disease; Z95.5 Presence of coronary angioplasty implant and graft; Z87.891 Personal history of nicotine dependence; Z80.8 Family history of malignant neoplasm of other organs or systems
CPT/HCPCS: 36415; 71045; 80053; 81003; 82550; 83615; 83735; 84100; 84443; 84484; 85025; 93005; 93458; 96374; 96375; 96376; 99152; 99285; C1760; C1769; C2629; G0378; G0480; J1644; J1885; J2250; J2405; J3010; J7040; Q9966

== ENCOUNTER 2018-06-24 20:17 | Emergency (ER) | payer MEDICARE, OTHER ==
[2018-06-24 20:18] VITALS: BMI 23.6
[2018-06-24 20:35] VITALS: BP 135/69; PULSE 73; RESP 18; TEMP 98.1; O2SAT 96
--- NOTE | 2018-06-24 21:15 | ED PDOC ---
Arrival/HPI - General Chief Complaint: Back Pain Time Seen by Provider: 06/24/18 20:52 - History of Present Illness Narrative History of Present Illness (Text): 58 y/o M p/w flank pain. Patient states has had this pain forever and has had every test you can imagine for it and have found nothing. He states he has been told to take Percocet every 4 to 6 hours for the pain but he does not want to because he does not want to get addicted to it. Denies any new symptoms. Denies fever, chills, chest pain, dyspnea, vomiting, dysuria. 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) HX Cerebrovascular Accident: Yes Other/Comment: NEUROPATHY - HEENT Hx HEENT Disorder: No (glasses) - Renal Hx Renal Disorder: No - Endocrine/Metabolic Hx Endocrine Disorders: No Hx Hyperthyroidism: (pt denies) - Hematological/Oncological Hx Blood Disorders: Yes Hx Anemia: Yes (IRON DEFICIENCY ANEMIA) - Integumentary Hx Dermatological Disorder: No (TATTOOS) - Musculoskeletal/Rheumatological Hx Falls: No Hx Fractures: No - Gastrointestinal Hx Gastrointestinal Disorders: Yes (H/O RECTAL PROLAPSE,COLONIC MASS,) Hx Diverticulitis: Yes Hx Pancreatitis: (pt denies) Other/Comment: duoduenal ulcers,HEMORRHOIDS,GASTRITIS - Genitourinary/Gynecological Hx Genitourinary Disorders: No Hx Prostate Problems: No - Psychiatric Hx Anxiety: Yes Hx Substance Use: Yes - Past Surgical History Past Surgical History: No Previous - Surgical History Hx Coronary Stent: Yes (x5) Other/Comment: left leg vein removed - Anesthesia Hx Anesthesia: No Hx Anesthesia Reactions: No Hx Malignant Hyperthermia: No - Suicidal Assessment Feels Threatened In Home Enviroment: No Family/Social History Family/Social History: No Known Family HX Smoking Status: Light Smoker < 10 Cigarettes Daily Hx Alcohol Use: Yes Hx Substance Use: Yes Hx Substance Use Treatment: No Allergies/Home Meds Allergies/Adverse Reactions: Allergies ciprofloxacin Allergy (Severe, Verified 06/24/18 20:22) NUMBNESS levofloxacin [From Levaquin] Allergy (Verified 06/24/18 20:22) NUMBNESS metronidazole [From Flagyl] Allergy (Verified 06/24/18 20:22) SWELLING Quinolones Allergy (Verified 06/24/18 20:22) ANAPHYLAXIS Home Medications: Home Meds Medication Instructions Recorded Confirmed Aspirin [Adult Low Dose Aspirin EC] 81 mg PO DAILY 06/23/18 06/24/18 Review of Systems - Physician Review All systems were reviewed & negative as marked: Yes - Review of Systems Constitutional: absent: Fevers Cardiovascular: absent: Chest Pain Physical Exam - Physical Exam Narrative Physical Exam (Text): gen nad head nc/at eyes no icterus ent mmm cv reg rate lungs no acc muscle use extremities no deformity skin no rash neuro alert no focal deficit Vital Signs Temp Pulse Resp BP Pulse Ox 06/24/18 20:18 98.1 F 73 18 135/69 96 Medical Decision Making ED Course and Treatment: Patient without any new symptoms, advised patient f/u with PMD, return to ED for any new or worsening symptoms. - Medication Orders Current Medication Orders: Lorazepam (Ativan) 0.5 mg PO ONCE ONE; Protocol Stop: 06/24/18 21:14 Disposition/Present on Arrival - Present on Arrival Any Indicators Present on Arrival: No History of DVT/PE: No History of Uncontrolled Diabetes: No Urinary Catheter: No History of Decub. Ulcer: No History Surgical Site Infection Following: None - Disposition Have Diagnosis and Disposition been Completed?: Yes Diagnosis: Flank pain Disposition: HOME/ ROUTINE Disposition Time: 21:14 Patient Plan: Discharge Patient Problems: Current Active Problems Problem Status Onset Flank pain Acute Condition: STABLE Discharge Instructions (ExitCare): Chronic Pain (DC) Referrals: Harrison Mccall MD [Primary Care Provider] - Follow up with primary Forms: [email or web address] ([place])
--- NOTE | 2018-06-25 11:56 | CARD ---
APPROVED REPORT Date of service: 06/24/2018 EKG Measurement Heart [id number] <Conclusion> Normal sinus rhythm Normal ECG
== END 2018-06-24 21:25 | disposition home or self-care (01) ==
LOC: ED 20:17
DX: R10.9 Unspecified abdominal pain (principal); F17.210 Nicotine dependence, cigarettes, uncomplicated; I95.1 Orthostatic hypotension

== ENCOUNTER 2018-07-11 00:28 | Emergency (ER) | payer MEDICARE, OTHER ==
[2018-07-11 00:29] VITALS: BMI 23.6
--- NOTE | 2018-07-11 01:58 | ED PDOC ---
Arrival/HPI - General Historian: Patient - History of Present Illness Narrative History of Present Illness (Text): 07/11/18 01:54 CC: abdominal pain, withdrawal, anxious HPI: 58 yo male with PMH of COPD, HTN, HLD, CAD s/p 5 stents, gastric ulcer, renal cyst, BPH, and EtOH abuse presents to ED for evaluation of abdominal pain, withdrawal symptoms, and anxiety. Patient states the last drink he has 4-5 days ago where he finished 8 beers. Patient states that he usually drinks more than that but he has been educated to stop drinking due to his duodenal ulcers and sigmoid ulcers. Patient continues to drink. Patient states he was at home today and was feeling anxious because of his pain and the inability to sleep due to the pain. Patient has prescriptions at home for anxiety and pain. Patient has been to hospital multiple times. No visible signs of withdrawal or pain were d emonstrated during examination. Patient was speaking comfortably in full sentences. Patient denies fevers, chills, chest pain, sob, n/v, constipation or diarrhea, and dysuria. Patient admits to abdominal pain, agitation, and anxiety. Time/Duration: 1-3 hours Symptom Onset: Gradual Symptom Course: Improving, Resolved Quality: Aching, Burning Severity Level: 2 Activities at Onset: Rest Context: Sitting <Bill Fletcher - Last Filed: 07/11/18 02:38> <Lc Boyd - Last Filed: 07/11/18 03:15> - General Chief Complaint: Abdominal Pain Time Seen by Provider: 07/11/18 00:33 Past Medical History - Past History Past History: No Previous - Infectious Disease Hx of Infectious Diseases: None - Tetanus Immunization Tetanus Immunization: Up to Date - Cardiac Hx Hypertension: Yes - Pulmonary Hx Chronic Obstructive Pulmonary Disease (COPD): No (PT DENIES) - Neurological Hx Neurological Disorder: Yes (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) HX Cerebrovascular Accident: Yes Other/Comment: NEUROPATHY - HEENT Hx HEENT Disorder: No (glasses) - Renal Hx Renal Disorder: No - Endocrine/Metabolic Hx Endocrine Disorders: No Hx Hyperthyroidism: (pt denies) - Hematological/Oncological Hx Blood Disorders: Yes Hx Anemia: Yes (IRON DEFICIENCY ANEMIA) - Integumentary Hx Dermatological Disorder: No (TATTOOS) - Musculoskeletal/Rheumatological Hx Falls: No Hx Fractures: No - Gastrointestinal Hx Gastrointestinal Disorders: Yes (H/O RECTAL PROLAPSE,COLONIC MASS,) Hx Diverticulitis: Yes Hx Pancreatitis: (pt denies) Other/Comment: duoduenal ulcers,HEMORRHOIDS,GASTRITIS - Genitourinary/Gynecological Hx Genitourinary Disorders: No Hx Prostate Problems: No - Psychiatric Hx Anxiety: Yes Hx Substance Use: Yes - Past Surgical History Past Surgical History: No Previous - Surgical History Hx Coronary Stent: Yes (x5) Other/Comment: left leg vein removed - Anesthesia Hx Anesthesia: No Hx Anesthesia Reactions: No Hx Malignant Hyperthermia: No - Suicidal Assessment Feels Threatened In Home Enviroment: No <Bill Fletcher - Last Filed: 07/11/18 02:38> Family/Social History Family/Social History: No Known Family HX Smoking Status: Light Smoker < 10 Cigarettes Daily Hx Alcohol Use: Yes Frequency of alcohol use: Daily Hx Substance Use: Yes Hx Substance Use Treatment: No <Bill Fletcher - Last Filed: 07/11/18 02:38> Allergies/Home Meds <Bill Fletcher - Last Filed: 07/11/18 02:38> <Lc Boyd - Last Filed: 07/11/18 03:15> Allergies/Adverse Reactions: Allergies ciprofloxacin Allergy (Severe, Verified 06/24/18 20:22) NUMBNESS levofloxacin [From Levaquin] Allergy (Verified 06/24/18 20:22) NUMBNESS metronidazole [From Flagyl] Allergy (Verified 06/24/18 20:22) SWELLING Quinolones Allergy (Verified 06/24/18 20:22) ANAPHYLAXIS Home Medications: Home Meds Medication Instructions Recorded Confirmed Aspirin [Adult Low Dose Aspirin EC] 81 mg PO DAILY 06/23/18 06/24/18 Review of Systems - Review of Systems Constitutional: Normal. absent: Fatigue, Weight Change, Fevers, Night Sweats Eyes: Normal. absent: Vision Changes, Photophobia, Eye Pain ENT: Normal. absent: Hearing Changes Respiratory: Normal. absent: SOB, Cough Cardiovascular: Normal. absent: Chest Pain, Palpitations Gastrointestinal: Abdominal Pain. absent: Stool Changes, Constipation, Diarrhea, Nausea, Vomiting Genitourinary Male: Normal. absent: Dysuria, Frequency, Hematuria Musculoskeletal: Normal. absent: Arthralgias, Back Pain, Neck Pain Skin: Normal. absent: Rash, Pruritis, Skin Lesions Neurological: Normal. absent: Headache, Dizziness, Focal Weakness Endocrine: Normal. absent: Diaphoresis, Polyuria, Polydipsia Psychiatric: Normal. absent: Anxiety, Depression <Lionel Fletcheraser - Last Filed: 07/11/18 02:38> Physical Exam Vital Signs Reviewed: Yes Temperature: Afebrile Blood Pressure: Normal Pulse: Regular Respiratory Rate: Normal Appearance: Positive for: Well-Appearing, Non-Toxic Pain Distress: None Mental Status: Positive for: Alert and Oriented X 3 - Systems Exam Head: Present: Atraumatic. No: Normocephalic Pupils: Present: PERRL Extroacular Muscles: Present: EOMI Conjunctiva: Present: Normal Mouth: Present: Moist Mucous Membranes Neck: Present: Normal Range of Motion. No: Meningeal Signs, JVD Respiratory/Chest: Present: Clear to Auscultation, Good Air Exchange. No: Respiratory Distress, Accessory Muscle Use, Wheezes Cardiovascular: Present: Regular Rate and Rhythm, Normal S1, S2. No: Murmurs Abdomen: Present: Normal Bowel Sounds. No: Tenderness, Distention, Peritoneal Signs, Rebound, Guarding Upper Extremity: Present: Normal Inspection. No: Cyanosis, Edema Lower Extremity: Present: Normal Inspection. No: Edema Neurological: Present: GCS=15, CN II-XII Intact, Speech Normal Skin: Present: Warm, Dry, Normal Color. No: Rashes Psychiatric: Present: Alert, Oriented x 3, Normal Insight, Normal Concentration <ChanceBill - Last Filed: 07/11/18 02:38> Medical Decision Making ED Course and Treatment: 07/11/18 02:01 Impression 58 yo male with PMH of COPD, HTN, HLD, CAD s/p 5 stents, gastric ulcer, renal cyst, BPH, and EtOH abuse presents to ED for evaluation of abdominal pain, withdrawal symptoms, and anxiety. Plan -Pepcid -Librium Prior Visits All prior documentation and lab work reviewed for this evaluation Progress Notes Patient refuses medicines as he prefers, refused Ativan requested Librium instead, denied pepcid Will re-evaluate, likely discharge, with followup with GI Educated patient on cessation of alcohol and tobacco use 07/11/18 02:36 Patient requesting Zofran for discharge Re-evaluation Time: 02:37 Reassessment Condition: Re-examined, Improved - Medication Orders Current Medication Orders: Discontinued Medications Chlordiazepoxide (Librium) 25 mg PO STAT STA; Protocol Stop: 07/11/18 01:13 Last Admin: 07/11/18 01:47 Dose: 25 mg Famotidine (Pepcid) 20 mg IVP STAT STA Stop: 07/11/18 01:13 Last Admin: 07/11/18 01:48 Dose: Not Given Non-Admin Reason: Patient Asleep <Bill Fletcher - Last Filed: 07/11/18 02:38> ED Course and Treatment: Impression: Pt seen and evaluated with medical director/head team physician. Aware and agree with HPI, clinical findings, plan, and management. Pt, whose past medical history includes COPD, hypertension, hyperlipidemia, CAD with multiple cardiac stents, gastric ulcers, BPH, and alcohol abuse, presented for abdominal pain and anxiety. Plan: -- Librium -- Pepcid -- Reassess and disposition - Medication Orders Current Medication Orders: Discontinued Medications Chlordiazepoxide (Librium) 25 mg PO STAT STA; Protocol Stop: 07/11/18 01:13 Last Admin: 07/11/18 01:47 Dose: 25 mg Famotidine (Pepcid) 20 mg IVP STAT STA Stop: 07/11/18 01:13 Last Admin: 07/11/18 01:48 Dose: Not Given Non-Admin Reason: Patient Asleep <Lc Boyd - Last Filed: 07/11/18 03:15> - PA / SUPERVISOR PERSONNEL CLERKS / Resident Statement MARK has reviewed & agrees with the documentation as recorded. / has examined the patient and agrees with the treatment plan. <Lc Boyd - Last Filed: 07/11/18 03:15> Disposition/Present on Arrival - Present on Arrival Any Indicators Present on Arrival: No History of DVT/PE: No History of Uncontrolled Diabetes: No Urinary Catheter: No History of Decub. Ulcer: No History Surgical Site Infection Following: None - Disposition Have Diagnosis and Disposition been Completed?: Yes Disposition Time: 02:38 Patient Plan: Discharge <Bill Fletcher - Last Filed: 07/11/18 02:38> <Lc Boyd - Last Filed: 07/11/18 03:15> - Disposition Diagnosis: Abdominal pain Disposition: HOME/ ROUTINE Patient Problems: Current Active Problems Problem Status Onset Abdominal pain Acute Condition: GOOD Prescriptions: Ondansetron ODT [Zofran ODT] 4 mg PO Q6 PRN #12 odt PRN Reason: Nausea/Vomiting Forms: [facility] (Chinese)
[2018-07-11 03:38] VITALS: BP 138/67; PULSE 91; RESP 18; TEMP 98; O2SAT 97
== END 2018-07-11 02:49 | disposition home or self-care (01) ==
LOC: ED 00:28
DX: R10.9 Unspecified abdominal pain (principal); E78.5 Hyperlipidemia, unspecified; F17.210 Nicotine dependence, cigarettes, uncomplicated; I10 Essential (primary) hypertension; I25.10 Atherosclerotic heart disease of native coronary artery without angina pectoris; J44.9 Chronic obstructive pulmonary disease, unspecified; N40.0 Benign prostatic hyperplasia without lower urinary tract symptoms; Z86.73 Personal history of transient ischemic attack (TIA), and cerebral infarction without residual deficits